=== PATIENT | female | born 1935 | race Caucasian/White ===

== ENCOUNTER 2017-09-25 15:26 | Emergency (ER) | payer MEDICARE, OTHER, SELFPAY ==
[2017-09-25] VITALS (9 sets, daily range): BP systolic 116–183; BP diastolic 47–81; PULSE 80–96; RESP 14–22; TEMP 37.1; O2SAT 95–98
--- NOTE | 2017-09-25 15:44 | DI.RPTCT_ITS ---
SYMPTOM/DIAGNOSIS: SEVERE FRONTAL HEADACHE 2 WEEKS CTA HEAD AND NECK: CT angiography was performed with multi slice acquisition and multi planar and 3D reconstruction. CTA NECK: There is atherosclerosis of the visualized portions of the thoracic aorta. The common carotid arteries are unremarkable without significant stenosis, aneurysm, or dissection. There is minimal atherosclerosis at the left carotid bulb. No significant stenosis is seen. There is mild atherosclerosis in the right carotid bulb with mild narrowing approximately 30% stenosis is estimated. The extra cranial internal carotid arteries are otherwise unremarkable. The external carotid arteries are unremarkable without significant stenosis, occlusion, dissection or aneurysm. There is a hypoplastic right vertebral artery which is a normal variant. No stenosis, occlusion or aneurysm is seen in the vertebral arteries. The basilar artery is unremarkable. The soft tissues are grossly unremarkable. No acute abnormality is seen in the bones. IMPRESSION: Mild atherosclerotic calcification of the right carotid bulb resulting in approximately 30% narrowing. Minimal atherosclerosis is seen in the left carotid bulb without significant stenosis. 2. 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 No acute stenosis , aneurysm, occlusion or dissection. The anterior cerebral arteries are unremarkable without significant stenosis, occlusion or aneurysm. The middle cerebral arteries are unremarkable without significant stenosis, occlusion or aneurysm. The posterior cerebral arteries are unremarkable without significant stenosis occlusion or aneurysm. The vertebral arteries are unremarkable without significant stenosis, occlusion or aneurysm as is the basilar artery. There is a congenitally small right vertebral artery which is a normal variant. IMPRESSION: Normal CTA of the head.
--- NOTE | 2017-09-25 15:44 | DI.RPTCT_ITS ---
SYMPTOM/DIAGNOSIS: SEVERE HEADACHE, FRONTAL, NO HX OF HEADACHES CT BRAIN: Noncontrast. Comparison 03/04/11. The ventricles and sulci are consistent with the patient's age. There are areas of decreased attenuation in the white matter consistent with small vessel ischemic disease. No acute intracranial hemorrhage, infarct, midline shift or mass effect is identified. Mild mucosal thickening seen in the ethmoid air cells bilaterally. No fluid levels are seen. The mastoid air cells are well pneumatized. The calvarium is intact. IMPRESSION: No acute intracranial process.
[2017-09-25] MEDS: Normal Saline 1,000 ML 1000 ML IV (16:03)
[2017-09-25 16:10] LABS: Abs Immature Grans 0.01 k/cumm (0.0-0.09); Absolute Basophil Count 0.04 k/cumm (0.0-0.2); Absolute Eosinophil Count 0.53 k/cumm (0.0-0.7); Absolute Lymphocyte Count 2.46 k/cumm (1.2-3.4); Absolute Monocyte Count 0.89 k/cumm (0.11-0.7); Absolute Neutrophil Count 3.35 k/cumm (1.2-6.7); Basophils % 0.5; Eosinophils % 7.3; HCT 37.4 % (36.0-46.0); HGB 13.1 g/dL (12.0-15.5); Immature Grans % 0.1; Lymphocytes % 33.8; Mean Corpuscular Hemoglobin 29.7 pg (27.0-33.0); Mean Corpuscular Volume 84.8 fL (80-95); Mean Platelet Volume 10.7 fL (8.0-11.0); Monocytes % 12.2; Neutrophils % 46.1; Platelet Count 244 x1000/uL (130-400); RBC 4.41 m/cumm (4.00-5.20); RBC Distribution Width 12.5 % (11.7-14.6); White Blood Cell Count 7.28 k/cumm (4.4-10.8)
[2017-09-25 16:14] LABS: Prothrombin Time 9.7 sec (9.3-10.8)
[2017-09-25 16:21] LABS: ALT 25 U/L (12-78); AST 30 U/L (15-37); Albumin 3.5 g/dL (3.4-5.0); Alkaline Phosphatase 103 U/L (46-116); Anion Gap 11.8 mmol/L (3-11); BUN 11 mg/dL (7-18); Bilirubin, Total 0.3 mg/dL (0.2-1.0); CO2 23.2 mmol/L (21.0-32.0); Calcium 8.7 mg/dL (8.5-10.1); Chloride 91 mmol/L (98-107); Estimated GFR 53.21 (mL/min/1.73m2); Glucose 104 mg/dL (70-100); Potassium 4.2 mmol/L (3.5-5.1); Sodium 126 mmol/L (136-145); Total Protein 7.2 g/dL (6.4-8.2)
[2017-09-25 16:28] LABS: Troponin I < 0.02 ng/mL (0.00-0.06)
--- NOTE | 2017-09-25 16:38 | ED.GENADUL_ITS ---
Disposition Clinical Impression: Headache, Hyponatremia Disposition: HOME Condition: Good Instructions: Hyponatremia (ED), General Headache (ED) Additional Instructions: Please eat a salty diet over the next 72 hours to bring up her sodium. If you notice any worsening of your symptoms, or any new symptoms such as vomiting, diarrhea, fever, chills, shortness of breath, chest pain, numbness, weakness, or fainting , please return immediately to the emergency department for reevaluation. Please follow up with your primary care provider as soon as possible for reassessment and reevaluation. As always, it was a pleasure participating in your medical care today. Referrals: Andrez Anthony MD [Primary Care Provider] - Medical Decision Making - Lab Data Laboratory Tests 09/25/17 09/25/17 09/25/17 15:45 15:45 15:45 WBC 7.28 RBC 4.41 Hgb 13.1 Hct 37.4 MCV 84.8 MCH 29.7 MCHC 35.0 RDW 12.5 Plt Count 244 MPV 10.7 Immature Gran % 0.1 Neutrophils % 46.1 Lymphocytes % 33.8 Monocytes % 12.2 Eosinophils % 7.3 Basophils % 0.5 Absolute Neutrophils 3.35 Absolute Lymphocytes 2.46 Absolute Monocytes 0.89 H Absolute Eosinophils 0.53 Absolute Basophils 0.04 PT 9.7 INR 1.0 Sodium 126 L Potassium 4.2 Chloride 91 L Carbon Dioxide 23.2 Anion Gap 11.8 H BUN 11 Creatinine 1.00 Estimated GFR/1.73 m2 53.21 Glucose 104 H Calcium 8.7 Total Bilirubin 0.3 AST 30 ALT 25 Alkaline Phosphatase 103 Troponin I < 0.02 Total Protein 7.2 Albumin 3.5 - Medical Decision Making This is an 81-year-old female who presents today for evaluation of headache for the last 2 weeks which is gradually worsened. There is no thunderclap onset, no red flags for an intracranial aneurysm from family history. She does not take blood thinners. 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 DVT was early this year. She did have vomiting earlier this week but none now. Neurologic exam is normal with no focal neurologic deficits. Bedside ultrasound of the eyes demonstrated no significant papilledema or optic nerve dilatation. Patient's headache is severe, and we will give a migraine cocktail. Differential is broad, but includes tumor, intracranial aneurysm, atypical migraine. We will get a CT scan of the head neck to evaluate for aneurysm or bleed, she shows no signs of meningismus, meningitis, or nuchal rigidity. EKG 09/25/17 at 15: 42 Rate 83, ME 170, QTc 414, QRS 82, sinus rhythm. No ST elevations or depressions. Q-wave noted in lead III. No other abnormalities. APM CT scan of the head was negative for any acute process. CT angioma the head showed moderate atherosclerotic calcification of the carotid bulb on the right. 30% stenosis is estimated. No other significant abnormalities except for congenitally hypoplastic right vertebral artery. No signs of aneurysm or bleed. Magnesium was eventually given to the patient for her headache, she had near complete resolution of her headache with this, however prior to this was concern for some other potential atypical cause of her headache including infection, meningitis, encephalitis or potential bleed not seen on CT for which we need to evaluate for notable xanthochromia. Lumbar puncture was performed and clear fluid return. No yellow tingeing. Mildly traumatic tap. On reevaluation the patient's headache completely resolved, we are still pending CSF fluid results at this time. Patient's laboratory workup demonstrates normal white count. CSF demonstrates color of clear and colorless, 30 RBCs in tube 1 and 26 and 2 4. This correlates well with a traumatic tap noted from the procedure. Glucose is normal, protein is normal not suggestive of a bacterial or viral infection. Clinically and from a laboratory perspective the patient does not demonstrate evidence of encephalitis or meningitis at this time. With a resolved headache, I feel that she can be safely discharged home. The patient's sodium is slightly low at 126, however she has not been eating over the last few days secondary to the headache. With the improvement of her headache, no history of significant urination suggestive of SIADH, no signs of neurologic deficits, seizures, or obtundation, and complete resolution of her headache as well as the negative imaging studies and negative lumbar puncture I feel she can be safely discharged home with close follow-up with her primary care provider on Wednesday. I had a long discussion with her regarding potential admission versus discharge and the patient is actively requesting discharge. We discussed risks and benefits of this and the patient understands. Patient will be discharged home with close follow-up. We discussed red flags which to return the patient understands. I have recommended a high salt diet over the next 72 hours for her sodium. I have extensively reviewed the treatment plan and discharge instructions with the patient. I have addressed all patient concerns at this time. The patient was made aware of what symptoms to monitor for that would warrant a return to the emergency department. Discussed the plan with the patient, they demonstrate verbal understanding and agreement with our assessment and plan at this time. History of Present Illness - General Chief complaint: Headache Stated complaint: ? HEADACHE Time Seen by Provider: 09/25/17 15:43 - History of Present Illness Initial comments: This is an 81-year-old female with past medical history of DVTs, A. fib, who does not take any blood thinners, polymyalgia rheumatica, and a family history of brain cancer presents with 2 weeks of a headache, which is gradually been worsening. Over the last 3-4 days she states that the headache is been severe in nature. It is from the front of her head all the way to the back. There appears to be no aggravating or relieving factors. She describes it as the worst headache she has ever had. It was gradual in onset and slowly worsened over time there was no thunderclap onset. She denies any fever or chills. She had vomiting earlier this week but now is only nauseous. She states that it is usually worse in the morning, and better at night. She denies any photophobia or confusion. She denies any trauma. She states that she rarely ever gets headaches and they never feel like this. Family history is positive for great brain cancer, however she denies any family history of Lalita-Danlos syndrome, Marfan syndrome, polycystic kidney disease, intracranial aneurysms. Patient denies any numbness, tingling, weakness, vision changes. She denies any chest pain or pain, neck pain or shortness of breath. She denies any recent surgeries, she denies any IV or illicit drug use. - Related Data Cholecalciferol (Vitamin D3) [Vitamin D-400] 800 unit PO DAILY 09/02/12 Coq10 Sg 100 Softgel 1 each PO DAILY 09/02/12 Loratadine [Claritin] 10 mg PO DAILY PRN #90 tab-cap 09/02/12 Propylene Glycol/Peg 400 [Systane Liquid Gel Eye Drops] 1 drp OP BID 09/02/12 Oxymetazoline HCl [Afrin] 1 sprays NS BID PRN spray 04/02/15 Calcium Carbonate [Tums Smoothies] 300 mg PO PRN PRN 03/03/17 Milk of Magnesia [Milk Of Magnesia] 30 ml PO HS PRN PRN #1 btl 04/27/17 Metoprolol [Lopressor] 25 mg PO BID #180 tab-cap 05/18/17 PredniSONE [Deltasone] 1 tab PO DAILY #90 tab-cap 05/18/17 Naproxen 500 mg PO BID #30 tab-cap 07/26/17 Allergies Allergy/AdvReac Type Severity Reaction Status Date / Time morphine AdvReac Intermediate made my Unverified 07/26/17 10:24 chest feel likie I was in a vice Review of Systems Other: 10 point review of systems was performed, pertinent positives and negatives are noted in the history of present illness. Past Medical History - Past Medical History Medical history: AFIB - Social History Alcohol use: none Drug use: none General Exam - Other Other exam information: 1.Const: Well-nourished, Well-developed, appearing stated age 2.Eyes: no conjunctival injection, and symmetrical lids. Pupils are equal round and minimally reactive. No anisocoria 3.ENT: Atraumatic external nose and ears. Moist MM. Neck: Symmetric, trachea midline, No thyromegaly. Patient demonstrates good movement of cervical neck. There is no nuchal rigidity, no nuchal tenderness. Patient is able to flex the neck without any difficulty or significant pain. Negative Kernig's and Brudzinski sign. 4.CVS: +S1/S2, No murmurs or gallops. Peripheral pulses 2+ and equal in all extremities. Brisk capillary refill in all extremities. 5.RESP: Unlabored respiratory effort. Clear to auscultation bilaterally. No wheezes rales or rhonchi 6.GI: Soft, Nontender/Nondistended, No hepatosplenomegaly. No guarding or rebound. 7.MSK: Normocephalic/Atraumatic, Extremities w/o deformity or ttp No cyanosis or clubbing, Normal movement of all extremities 8.Skin: Warm, Dry. No rashes or lesions. 9.Neuro: fiberglass bonding machine tender II-XII grossly intact. Sensation grossly intact, no focal neurologic deficits. All 6 cardinal planes of vision or fully intact. No evidence of horizontal or vertical nystagmus. The patient demonstrated a normal [id number], good dexterity. There was no evidence of dysdiadochokinesia. Patient was able to ambulate without difficulty. There was no wide-based gait. Romberg, and [id number]-[id number] are both normal on testing. Sensation was intact bilaterally as well as muscle strength bilaterally for all extremities. Patient was able to verbalize butter cup with no slurring, or miss pronunciation. 10.Psych: (AAO) x3. Appropriate mood and affect Course Vital Signs - 24 hr 09/25/17 15:31 Temperature 37.1 C Pulse 94 H Respiratory 14 Rate Blood Pressure 183/81 Pulse Oximetry 96
[2017-09-25] MEDS: Omnipaque 350 MG/ML 100 ML BTL IJ (16:45)
[2017-09-25] MEDS: Metoclopramide 10 MG/2 ML VIAL IVP (16:45)
[2017-09-25] MEDS: methylPREDNISolone SUCC 125 MG VIAL IVP (16:45)
[2017-09-25] MEDS: Acetaminophen 500 MG TAB 1000 MG PO (16:46)
--- NOTE | 2017-09-25 16:51 | DI.VRAD_ITS ---
EXAM: CT Head Without Intravenous Contrast CLINICAL HISTORY: 81 years old, female; Pain; Headache; Other: Frantal 2weeks TECHNIQUE: Axial computed tomography images of the head/brain without intravenous contrast. Coronal and sagittal reformatted images were created and reviewed. COMPARISON: CT - HEAD WITHOUT CONTRAST 2011-03-04 12:40 FINDINGS: Brain: There is mild periventricular white matter hypodensity consistent with mild chronic microvascular ischemic change. No hemorrhage. Ventricles: There is moderate diffuse involutional change with commensurate ventriculomegaly. Bones/joints: Unremarkable. No acute fracture. Soft tissues: Unremarkable. Sinuses: Unremarkable as visualized. No acute sinusitis. Mastoid air cells: Unremarkable as visualized. No mastoid effusion. IMPRESSION: No acute findings. Dictated and Authenticated by: Yasir Cardoso MD. Ordering:TRENTON MARLEY MD
--- NOTE | 2017-09-25 17:08 | DI.VRAD_ITS ---
EXAM: CT Angiography Head With Intravenous Contrast CLINICAL HISTORY: 81 years old, female; Pain; Headache; Patient HX: Headache for 2 weeks TECHNIQUE: Axial computed tomographic angiography images of the head with intravenous contrast using CT angiography protocol. All CT scans at this facility use at least one of these dose optimization techniques: automated exposure control; mA and/or kV adjustment per patient size (includes targeted exams where dose is matched to clinical indication); or iterative reconstruction. MIP reconstructed images were created and reviewed. CONTRAST: 95 mL of [id number] administered intravenously. COMPARISON: No relevant prior studies available. FINDINGS: Right internal carotid artery: No acute findings. Intracranial segment is patent with no significant stenosis. No aneurysm. Right anterior cerebral artery: Unremarkable. No occlusion or significant stenosis. No aneurysm. Right middle cerebral artery: Unremarkable. No occlusion or significant stenosis. No aneurysm. Right posterior cerebral artery: Unremarkable. No occlusion or significant stenosis. No aneurysm. Right vertebral artery: Unremarkable as visualized. Left internal carotid artery: No acute findings. Intracranial segment is patent with no significant stenosis. No aneurysm. Left anterior cerebral artery: Unremarkable. No occlusion or significant stenosis. No aneurysm. Left middle cerebral artery: Unremarkable. No occlusion or significant stenosis. No aneurysm. Left posterior cerebral artery: Unremarkable. No occlusion or significant stenosis. No aneurysm. Left vertebral artery: Unremarkable as visualized. Basilar artery: Unremarkable. No occlusion or significant stenosis. No aneurysm. IMPRESSION: Normal head CTA. EXAM: CT Angiography Neck With Intravenous Contrast CLINICAL HISTORY: 81 years old, female; Pain; Headache; Patient HX: Headache for 2 weeks TECHNIQUE: Axial computed tomographic angiography images of the neck with intravenous contrast using CT angiography protocol. MIP reconstructed images were created and reviewed. CONTRAST: 95 mL of [id number] administered intravenously. 95 mL of [id number] administered intravenously. COMPARISON: CT - HEAD WITHOUT CONTRAST 2017-09-25 15:54 FINDINGS: VASCULATURE: Right common carotid artery: Unremarkable. No significant stenosis. No dissection or occlusion. Right internal carotid artery: There is mild to most moderate atherosclerotic calcification of the right carotid bulb. 30% stenosis is estimated. No dissection or occlusion. Right external carotid artery: Unremarkable. No occlusion. 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 This reflects a congenital variation of normal anatomy. No significant stenosis. No dissection or occlusion. Left common carotid artery: Unremarkable. No significant stenosis. No dissection or occlusion. Left internal carotid artery: There is quite minimal atherosclerotic calcification of the left carotid bulb. There is no stenosis. No dissection or occlusion. Left external carotid artery: Unremarkable. No occlusion. Left vertebral artery: Unremarkable. No significant stenosis. No dissection or occlusion. NECK: Bones/joints: No acute fracture. No dislocation. Soft tissues: Unremarkable as visualized. No mass. CAROTID STENOSIS REFERENCE USING NASCET CRITERIA: % ICA stenosis = (1 - narrowest ICA diameter/diameter of distal cervical ICA) x 100. Mild - <50% stenosis. Moderate - 50-69% stenosis. Severe - 70-94% stenosis. Near occlusion - 95-99% stenosis. Occluded - 100% stenosis. IMPRESSION: 1. There is mild to most moderate atherosclerotic calcification of the right carotid bulb. 30% stenosis is estimated. 2. There is quite minimal atherosclerotic calcification of the left carotid bulb. There is no stenosis. 3. 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 This reflects a congenital variation of normal anatomy. Dictated and Authenticated by: Yasir Cardoso MD. Ordering:TRENTON MARLEY MD
[2017-09-25] MEDS: diphenhydrAMINE 50 MG/ML VIAL 25 MG IVP (18:30)
[2017-09-25] MEDS: MAGNESIUM SULFATE 1 GM/100 ML BAG IVPB (18:31)
[2017-09-25] MEDS: Prochlorperazine 10 MG TAB PO (18:31)
[2017-09-25 19:55] LABS: Glucose (CSF) 57 mg/dL (40-70); Total Protein (CSF) 34 mg/dL (15-45)
[2017-09-25 20:35] LABS: Clarity Clear; RBC 30 /mm3 (0-5); Tube # 4; WBC 1 /mm3 (0-5); Xanthochromia Absent
[2017-09-25 20:38] LABS: Clarity Clear; Tube # 1; WBC 0 /mm3 (0-5); Xanthochromia Absent
[2017-09-25 20:39] LABS: RBC 26 /mm3 (0-5)
[2017-09-25 20:40] LABS: RBC Tube#1 CSF 26 /mm3 (0-5)
[2017-09-25] MEDS: Normal Saline 500 ML 1000 ML IV (20:45)
== END 2017-09-25 21:56 | disposition home or self-care (01) ==
PROVIDERS: Emergency Provider Student in an Organized Health Care Education/Training Program; PCP Family Medicine
DX: R51 Headache (principal); E87.1 Hypo-osmolality and hyponatremia
CPT/HCPCS: 62270 ×2; 70450; 70496; 70498; 93005; 96361; 96365; 96375; 99285 ×2; J1200; J2765; J2930; J3475; 36415; 80053; 82945; 89050; 89051; 84157; 84484; 85025; 85610; 87070; 87205; 93010; J3490

== ENCOUNTER 2017-11-04 09:57 | Emergency (ER) | payer MEDICARE, OTHER, SELFPAY ==
[2017-11-04 10:09] VITALS: BP 135/52; PULSE 88; RESP 16; TEMP 36.7; O2SAT 98
--- NOTE | 2017-11-04 10:33 | DI.RAD_ITS ---
SYMPTOMS/DIAGNOSIS: FALL, RT PELVIC PAIN RIGHT HIP AND PELVIS: There is a nondisplaced fracture seen of the right superior pubic ramus just lateral to the symphysis pubis. There is also deformity of the superior aspect of the right inferior pubic ramus suspicious for a nondisplaced fracture. No other fracture or dislocation is seen. The sacroiliac joints and symphysis pubis appear intact. Vascular calcifications are present. IMPRESSION: Fractures involving the right superior and inferior pubic rami.
[2017-11-04] MEDS: Acetaminophen 325 MG TAB 650 MG PO (10:35)
--- NOTE | 2017-11-04 11:25 | W.ED.GENAD ---
Discharge Plan Disposition Patient Disposition: HOME Condition: Stable Discharge Details Chief Complaint: Orthopedic Clinical Impression: Closed fracture of ramus of right pubis Primary Care Provider: Andrez Anthony ED Provider: Ike Del Rio Home Meds and New Rx's Prescriptions: Continue cholecalciferol (vitamin D3) [Vitamin D3] 400 UNIT tablet 800 unit PO DAILY RF: 0 loratadine [Claritin] 10 MG tablet 10 mg PO DAILY PRNQty: 90 RF: 4 peg 400-propylene glycol [Systane Liquid Gel] 15 ML drops, liquid gel 1 drp Ophthalmic BID RF: 0 COQ10 SG 100 SOFTGEL 1 EACH capsule 1 ea PO DAILY RF: 0 oxymetazoline [Afrin (oxymetazoline)] 15 ML spray,non-aerosol 1 spry NS BID PRNRF: 0 prednisone 5 MG tablet 1 tab PO DAILY Qty: 90 RF: 2 metoprolol tartrate 25 MG tablet 25 mg PO BID Qty: 180 RF: 4 naproxen 500 MG tablet 500 mg PO BID Qty: 30 RF: 1 carbamazepine 100 mg tablet extended release 12 hr 100 mg PO BID Qty: 60 RF: 3 calcium carbonate [Tums Extra Strength Smoothies] 300 MG tablet,chewable 300 mg PO PRN PRNRF: 0 magnesium hydroxide [Milk of Magnesia] 30 ML suspension 30 ml PO HS PRN PRN (Reason: Constipation) Qty: 1 RF: 0 Discharge Instructions Instructions: Pelvic Fracture (ED) Additional Instructions: Return immediately to the emergency department for new or worsening symptoms otherwise follow-up with orthopedist in the next 2 weeks for reassessment. Call their office in the morning for arrangement of follow-up appointment. You may perform weightbearing activities as tolerated by discomfort and continue to use your walker as needed for gait assistance Referrals: Ruy Bowman MD [ [facility] STAFF PHYSICIAN] - Cliff Devries MD [ [facility] STAFF PHYSICIAN] - Wm Gilmore MD [ [facility] STAFF PHYSICIAN] - Medical Decision Making MDM Narrative Medical decision making narrative: Patient presenting to the emergency department one day status post fall onto left hip. After the fall patient started having some right hip pain and discomfort. She is questioning if this is muscular. Patient did state that she took Tylenol yesterday and pain was well tolerated except with attempting weightbearing activities. Patient has some illicit pain response with range of motion activities to the right hip and tenderness to the pubic bone. Concern for pubic fracture versus hip fracture so radiological imaging was ordered. Patient is otherwise comfortable and no other significant signs of injury or trauma are noted. Patient given acetaminophen pending results Review of radiological imaging shows a right pubic ramus fracture. Did speak with Dr. Bowman in regards to discharge the patient with weightbearing as tolerated and follow-up. After speaking with Dr. Bowman he agreed that patient should continue to use a walker and perform weightbearing as tolerated activities and follow-up with their office in 2 weeks. Given that patient states tolerable pain with acetaminophen and no issues with sleep I feel that continuing [id number] therapy is appropriate.. Patient encouraged to return for any new or worsening symptoms Medical Records Medical records reviewed: Yes I reviewed the patient's medical records. Imaging Data Radiologic Study: Attestation: I personally reviewed and interpreted this imaging study as follows: Imaging: X-Ray Radiologist's impression: Radiologist interpretation of right pubic ramus fracture HPI - General Adult General Mode of arrival: wheelchair. Date/Time Provider Initiated Documentation: 11/04/17 10:04. Limitations to Documentation: no limitations. Information obtained by: patient. History of Present Illness 81 year old F presents to the emergency department with the chief complaint of Fall right hip pain, described as moderate, with intensity rated at 5. Quality is described as aching, and is localized to the lower extremity. Patient reports no radiation. Patient started experiencing this day(s) (1) and it has been constant. No relieving factors improve symptom(s), Movement worsens symptoms . Patient notes no other symptoms.. Patient did receive the following treatments prior to arrival, other (Acetaminophen yesterday) Related Data Home Medications Medication Instructions Recorded Confirmed Coq10 Sg 100 Softgel 1 ea PO DAILY 09/02/12 11/04/17 cholecalciferol (vitamin D3) 800 unit PO DAILY 09/02/12 11/04/17 [Vitamin D3] loratadine [Claritin] 10 mg PO DAILY PRN #90 tab-cap 09/02/12 11/04/17 peg 400-propylene glycol [Systane 1 drp OPHTHALMIC BID 09/02/12 11/04/17 Liquid Gel] oxymetazoline [Afrin 1 spry NS BID PRN spray 04/02/15 11/04/17 (oxymetazoline)] calcium carbonate [Tums Extra 300 mg PO PRN PRN 03/03/17 11/04/17 Strength Smoothies] Previous Rx's Medication Instructions Recorded magnesium hydroxide [Milk of 30 ml PO HS PRN PRN #1 btl 04/27/17 Magnesia] metoprolol tartrate 25 mg PO BID #180 tab-cap 05/18/17 prednisone 1 tab PO DAILY #90 tab-cap 05/18/17 naproxen 500 mg PO BID #30 tab-cap 07/26/17 carbamazepine ER 100 mg 100 mg PO BID #60 tab 11/01/17 tablet,extended release,12 hr Allergies Allergy/AdvReac Type Severity Reaction Status Date / Time morphine AdvReac Intermediate made my Unverified 11/04/17 10:13 chest feel likie I was in a vice General Stated Complaint: Orthopedic HARSHAD: 3 Review of Systems Constitutional Denies body ache(s), Denies chills, Denies fever(s), Denies frequent falls and Denies headache(s) ENT Denies headache(s) Cardiovascular Denies chest pain, Denies syncope and Denies dyspnea Respiratory Denies dyspnea Gastrointestinal Denies abdominal pain, Denies nausea and Denies vomiting Musculoskeletal Reports as per HPI and Denies numbness Integumentary/Breasts Denies rash Neurologic Denies confusion, Denies syncope, Denies frequent falls, Denies headache(s), Denies numbness and Denies sensory deficit Psychiatric Denies confusion PFSH Family History Mother No problems noted. Father Neoplasm Sister Neoplasm Medical History GERD (gastroesophageal reflux disease) Osteoarthritis Paroxysmal atrial fibrillation Polymyalgia rheumatica Social History Smoking/Tobacco Use Status: Never Surgical History Cholecystectomy (~01/2007) Colonoscopy - MAC Hemorrhoidal Banding (04/27/17) Exam Const General: cooperative, no acute distress and not ill appearing Orientation: alert, awake and oriented x3 HENMT Head: normal to inspection, normocephalic and atraumatic Mouth: moist mucous membranes Resp Effort & Inspection: normal respiratory effort, able to speak in complete sentences and no respiratory distress Cardio Rate: regular rate Rhythm: regular rhythm Heart Sounds: S1 normal, S2 normal, normal S1 and S2, no click, no gallops, no murmurs and no rubs Back/Spine/Pelvis Back: No sacral edema and No back tenderness Cervical Spine: No pain with cervical ROM, No cervical spinal tenderness and No step off deformity Thoracic/Lumbar Spine: thoracic and lumbar spine normal to inspection Pelvis: no pain with lateral compression and tenderness over symphysis pubis (On the right side) Skin General skin exam: no rashes or lesions noted Neuro General: alert, awake, oriented x3, moves all extremities and no focal motor deficits Sensory Exam: no sensory deficits noted Extrem General: normal capillary refill Right lower extremity: normal capillary refill and hip/thigh Details: tenderness and abnormal ROM Details: pain with active ROM during and pain with passive ROM during Details: to ADduction, to ABduction, to flexion and to external rotation; no swelling and no crepitus; no edema and joint enlargement noted Left lower extremity: normal to inspection and full ROM Course Vital Signs Temperature 36.7 C 11/04/17 10:09 Pulse 88 11/04/17 10:09 Respiratory Rate 16 11/04/17 10:09 Blood Pressure 135/52 L 11/04/17 10:09 Pulse Oximetry 98 11/04/17 10:09 Temperature 36.7 C 11/04/17 10:09 Pulse 88 11/04/17 10:09 Respiratory Rate 16 11/04/17 10:09 Blood Pressure 135/52 L 11/04/17 10:09 Pulse Oximetry 98 11/04/17 10:09
--- NOTE | 2017-11-04 11:33 | ED.GENADUL_ITS ---
Discharge Plan Disposition Patient Disposition: HOME Condition: Stable Discharge Details Chief Complaint: Orthopedic Clinical Impression: Closed fracture of ramus of right pubis Primary Care Provider: Andrez Anthony ED Provider: Ike Del Rio Home Meds and New Rx's Prescriptions: Continue cholecalciferol (vitamin D3) [Vitamin D3] 400 UNIT tablet 800 unit PO DAILY RF: 0 loratadine [Claritin] 10 MG tablet 10 mg PO DAILY PRNQty: 90 RF: 4 peg 400-propylene glycol [Systane Liquid Gel] 15 ML drops, liquid gel 1 drp Ophthalmic BID RF: 0 COQ10 SG 100 SOFTGEL 1 EACH capsule 1 ea PO DAILY RF: 0 oxymetazoline [Afrin (oxymetazoline)] 15 ML spray,non-aerosol 1 spry NS BID PRNRF: 0 prednisone 5 MG tablet 1 tab PO DAILY Qty: 90 RF: 2 metoprolol tartrate 25 MG tablet 25 mg PO BID Qty: 180 RF: 4 naproxen 500 MG tablet 500 mg PO BID Qty: 30 RF: 1 carbamazepine 100 mg tablet extended release 12 hr 100 mg PO BID Qty: 60 RF: 3 calcium carbonate [Tums Extra Strength Smoothies] 300 MG tablet,chewable 300 mg PO PRN PRNRF: 0 magnesium hydroxide [Milk of Magnesia] 30 ML suspension 30 ml PO HS PRN PRN (Reason: Constipation) Qty: 1 RF: 0 Discharge Instructions Instructions: Pelvic Fracture (ED) Additional Instructions: Return immediately to the emergency department for new or worsening symptoms otherwise follow-up with orthopedist in the next 2 weeks for reassessment. Call their office in the morning for arrangement of follow-up appointment. You may perform weightbearing activities as tolerated by discomfort and continue to use your walker as needed for gait assistance Referrals: Ruy Bowman MD [ [facility] STAFF PHYSICIAN] - Cliff Devries MD [ [facility] STAFF PHYSICIAN] - Wm Gilmore MD [ [facility] STAFF PHYSICIAN] - Medical Decision Making MDM Narrative Medical decision making narrative: Patient presenting to the emergency department one day status post fall onto left hip. After the fall patient started having some right hip pain and discomfort. She is questioning if this is muscular. Patient did state that she took Tylenol yesterday and pain was well tolerated except with attempting weightbearing activities. Patient has some illicit pain response with range of motion activities to the right hip and tenderness to the pubic bone. Concern for pubic fracture versus hip fracture so radiological imaging was ordered. Patient is otherwise comfortable and no other significant signs of injury or trauma are noted. Patient given acetaminophen pending results Review of radiological imaging shows a right pubic ramus fracture. Did speak with Dr. Bowman in regards to discharge the patient with weightbearing as tolerated and follow-up. After speaking with Dr. Bowman he agreed that patient should continue to use a walker and perform weightbearing as tolerated activities and follow-up with their office in 2 weeks. Given that patient states tolerable pain with acetaminophen and no issues with sleep I feel that continuing [id number]-[id number] therapy is appropriate.. Patient encouraged to return for any new or worsening symptoms Medical Records Medical records reviewed: Yes I reviewed the patient's medical records. Imaging Data Radiologic Study: Attestation: I personally reviewed and interpreted this imaging study as follows: Imaging: X-Ray Radiologist's impression: Radiologist interpretation of right pubic ramus fracture HPI - General Adult General Mode of arrival: wheelchair . Date/Time Provider Initiated Documentation: 11/04/17 10:04 . Limitations to Documentation: no limitations . Information obtained by: patient . History of Present Illness 81 year old F presents to the emergency department with the chief complaint of Fall right hip pain, described as moderate, with intensity rated at 5. Quality is described as aching, and is localized to the lower extremity. Patient reports no radiation. Patient started experiencing this day(s) (1) and it has been constant. No relieving factors improve symptom(s), Movement worsens symptoms . Patient notes no other symptoms.. Patient did receive the following treatments prior to arrival, other (Acetaminophen yesterday) Related Data Home Medications Medication Instructions Recorded Confirmed Coq10 Sg 100 Softgel 1 ea PO DAILY 09/02/12 11/04/17 cholecalciferol (vitamin D3) 800 unit PO DAILY 09/02/12 11/04/17 [Vitamin D3] loratadine [Claritin] 10 mg PO DAILY PRN #90 tab-cap 09/02/12 11/04/17 peg 400-propylene glycol [Systane 1 drp OPHTHALMIC BID 09/02/12 11/04/17 Liquid Gel] oxymetazoline [Afrin 1 spry NS BID PRN spray 04/02/15 11/04/17 (oxymetazoline)] calcium carbonate [Tums Extra 300 mg PO PRN PRN 03/03/17 11/04/17 Strength Smoothies] Previous Rx's Medication Instructions Recorded magnesium hydroxide [Milk of 30 ml PO HS PRN PRN #1 btl 04/27/17 Magnesia] metoprolol tartrate 25 mg PO BID #180 tab-cap 05/18/17 prednisone 1 tab PO DAILY #90 tab-cap 05/18/17 naproxen 500 mg PO BID #30 tab-cap 07/26/17 carbamazepine ER 100 mg 100 mg PO BID #60 tab 11/01/17 tablet,extended release,12 hr Allergies Allergy/AdvReac Type Severity Reaction Status Date / Time morphine AdvReac Intermediate made my Unverified 11/04/17 10:13 chest feel likie I was in a vice General Stated Complaint: Orthopedic HARSHAD: 3 Review of Systems Constitutional Denies body ache(s), Denies chills, Denies fever(s), Denies frequent falls and Denies headache(s) ENT Denies headache(s) Cardiovascular Denies chest pain, Denies syncope and Denies dyspnea Respiratory Denies dyspnea Gastrointestinal Denies abdominal pain, Denies nausea and Denies vomiting Musculoskeletal Reports as per HPI and Denies numbness Integumentary/Breasts Denies rash Neurologic Denies confusion, Denies syncope, Denies frequent falls, Denies headache(s), Denies numbness and Denies sensory deficit Psychiatric Denies confusion PFSH Family History Mother No problems noted. Father Neoplasm Sister Neoplasm Medical History GERD (gastroesophageal reflux disease) Osteoarthritis Paroxysmal atrial fibrillation Polymyalgia rheumatica Social History Smoking/Tobacco Use Status: Never Surgical History Cholecystectomy (~01/2007) Colonoscopy - MAC Hemorrhoidal Banding (04/27/17) Exam Const General: cooperative, no acute distress and not ill appearing Orientation: alert, awake and oriented x3 HENMT Head: normal to inspection, normocephalic and atraumatic Mouth: moist mucous membranes Resp Effort & Inspection: normal respiratory effort, able to speak in complete sentences and no respiratory distress Cardio Rate: regular rate Rhythm: regular rhythm Heart Sounds: S1 normal, S2 normal, normal S1 and S2, no click, no gallops, no murmurs and no rubs Back/Spine/Pelvis Back: No sacral edema and No back tenderness Cervical Spine: No pain with cervical ROM, No cervical spinal tenderness and No step off deformity Thoracic/Lumbar Spine: thoracic and lumbar spine normal to inspection Pelvis: no pain with lateral compression and tenderness over symphysis pubis ( On the right side) Skin General skin exam: no rashes or lesions noted Neuro General: alert, awake, oriented x3, moves all extremities and no focal motor deficits Sensory Exam: no sensory deficits noted Extrem General: normal capillary refill Right lower extremity: normal capillary refill and hip/thigh Details: tenderness and abnormal ROM Details: pain with active ROM during and pain with passive ROM during Details: to ADduction, to ABduction, to flexion and to external rotation; no swelling and no crepitus; no edema and joint enlargement noted Left lower extremity: normal to inspection and full ROM Course Vital Signs Temperature 36.7 C 11/04/17 10:09 Pulse 88 11/04/17 10:09 Respiratory Rate 16 11/04/17 10:09 Blood Pressure 135/52 L 11/04/17 10:09 Pulse Oximetry 98 11/04/17 10:09 Temperature 36.7 C 11/04/17 10:09 Pulse 88 11/04/17 10:09 Respiratory Rate 16 11/04/17 10:09 Blood Pressure 135/52 L 11/04/17 10:09 Pulse Oximetry 98 11/04/17 10:09
[2017-11-04 12:15] VITALS: BP 130/48; PULSE 82; RESP 16; TEMP 36.7; O2SAT 98
== END 2017-11-04 12:15 | disposition home or self-care (01) ==
PROVIDERS: Emergency Provider Nurse Practitioner Family; PCP Family Medicine
DX: S32.501A Unspecified fracture of right pubis, initial encounter for closed fracture (principal); W18.39XA Other fall on same level, initial encounter
CPT/HCPCS: 99283; 73502; 99282

== ENCOUNTER 2018-01-11 15:33 | Outpatient (CLI) | payer MEDICARE, OTHER, SELFPAY ==
[2018-01-11 16:17] LABS: Prothrombin Time 9.9 sec (9.3-10.8)
[2018-01-11 17:34] LABS: ESR 27 MM/HR (0-30)
== END 2018-01-11 15:53 ==
PROVIDERS: PCP Family Medicine; Visit Provider Family Medicine
DX: R51 Headache (principal); I48.91 Unspecified atrial fibrillation; Z79.01 Long term (current) use of anticoagulants
CPT/HCPCS: 36415; 85652; 85610

== ENCOUNTER 2018-01-28 00:53 | Outpatient (CLI) | payer MEDICARE, OTHER, SELFPAY ==
--- NOTE | 2018-01-28 13:49 | DI.MRI_ITS ---
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 T2 sagittal, T1, T2 Flair and diffusion axial, gradient echo axial and post gadolinium T1 axial and coronal sequences were performed. There is moderate atrophy, consistent with the patient's age. Again noted are multiple areas of high signal in the right matter consistent with microvascular disease. No mass, hemorrhage or acute infarct is seen. The ventricles are unchanged in size. The orbits and sinuses are unremarkable. The mastoid air cells appear clear. The vascular flow voids appear intact. IMPRESSION: Stable atrophy and white matter changes likely reflecting microvascular disease. No acute abnormality.
[2018-01-28 14:27] LABS: CREATININE 0.84 mg/dL (0.55-1.02)
[2018-01-28] MEDS: Gadoterate meglumine 20 ML VIAL 10 ML IVP (15:37)
== END 2018-01-28 01:13 ==
PROVIDERS: PCP Family Medicine; Visit Provider Family Medicine
DX: G44.59 Other complicated headache syndrome (principal); G31.1 Senile degeneration of brain, not elsewhere classified; R90.82 White matter disease, unspecified; Z13.89 Encounter for screening for other disorder
CPT/HCPCS: 36415; 70553; 82565

== ENCOUNTER → 2018-02-03 08:46 | Outpatient (BNVA) | payer MEDICARE, OTHER, SELFPAY | PROVIDERS: PCP Family Medicine; Referring Provider Family Medicine; Visit Provider Psychiatry & Neurology Neurology | DX: R51 Headache (principal); G43.009 Migraine without aura, not intractable, without status migrainosus | CPT/HCPCS: 99205; 99215 ==

== ENCOUNTER 2018-02-04 09:25 | Outpatient (CLI) | payer MEDICARE, OTHER, SELFPAY ==
[2018-02-04 11:33] LABS: Anion Gap 9.5 mmol/L (3-11); BUN 16 mg/dL (7-18); CO2 26.5 mmol/L (21.0-32.0); CREATININE 0.84 mg/dL (0.55-1.02); Calcium 8.7 mg/dL (8.5-10.1); Chloride 93 mmol/L (98-107); Glucose 96 mg/dL (70-100); Potassium 4.3 mmol/L (3.5-5.1); Sodium 129 mmol/L (136-145); TSH (W/Ref FT4) 1.25 uIU/mL (0.358-3.74)
== END 2018-02-04 09:45 ==
PROVIDERS: PCP Family Medicine; Visit Provider Psychiatry & Neurology Neurology
DX: G50.0 Trigeminal neuralgia (principal); I48.91 Unspecified atrial fibrillation
CPT/HCPCS: 80048; 84443

== ENCOUNTER 2018-02-09 08:41 | Outpatient (CLI) | payer MEDICARE, OTHER, SELFPAY ==
[2018-02-09 10:04] LABS: Sodium, Urine 52 mmol/L
[2018-02-09 21:31] LABS: Osmolality, Urine 412 mos/kg (150-1150)
== END 2018-02-09 09:01 ==
PROVIDERS: PCP Family Medicine; Visit Provider Family Medicine
DX: E87.1 Hypo-osmolality and hyponatremia (principal)
CPT/HCPCS: 83935; 84300

== ENCOUNTER 2018-03-24 08:53 | Outpatient (CLI) | payer MEDICARE, OTHER, SELFPAY ==
[2018-03-24 11:56] LABS: Anion Gap 7.6 mmol/L (3-11); BUN 21 mg/dL (7-18); CO2 30.4 mmol/L (21.0-32.0); CREATININE 0.98 mg/dL (0.55-1.02); Calcium 9.1 mg/dL (8.5-10.1); Chloride 98 mmol/L (98-107); Estimated GFR 54.33 (mL/min/1.73m2); Glucose 96 mg/dL (70-100); Sodium 136 mmol/L (136-145); TSH 3.11 uIU/mL (0.358-3.74)
== END 2018-03-24 09:13 ==
PROVIDERS: PCP Family Medicine; Visit Provider Family Medicine
DX: R51 Headache (principal); E83.42 Hypomagnesemia; E22.2 Syndrome of inappropriate secretion of antidiuretic hormone; I48.91 Unspecified atrial fibrillation
CPT/HCPCS: 36415; 80048; 83735; 84443

== ENCOUNTER 2018-05-02 09:05 | Day surgery (SDC) | payer MEDICARE, OTHER, SELFPAY ==
--- NOTE | 2018-05-01 17:38 | W.PIPPEYE ---
History of Present Illness Chief Complaint: Progressive decreased vision, left eye Narrative: The patient is a 82-year-old lady with history of progressive decreased vision in both eyes at both distance and near. On examination she was noted to have bilateral nuclear and cortical cataracts. Visual acuity measured 20/30 OD, 20/50 OS. The option of cataract surgery was offered to the patient and she wished to proceed. NOTE: The Chief Complaint, HPI, Past Medical History, Past Surgical History, Family History, Social History, Medications, and complete Ophthalmic Exam with detailed Assessment and Plan have already been documented in the patient's outpatient ophthalmic record and are not covered again in detail here. [facility] Medical History Cortical cataract of left eye (Acute) Epiretinal membrane (ERM) of left eye (Chronic) Nuclear sclerotic cataract of left eye (Acute) History of pelvic fracture (Chronic) Osteoporosis (Chronic) Celiac disease (Chronic 06/12/13) DVT (deep venous thrombosis) (Chronic) GERD (gastroesophageal reflux disease) Osteoarthritis Paroxysmal atrial fibrillation Polymyalgia rheumatica Surgical History Cholecystectomy (~01/2007) Colonoscopy - MAC Hemorrhoidal Banding (04/27/17) Social History highest education level completed: high school graduate current occupational status: retired current occupation: [employer] pets and animals: No what type of physical activity do you participate in: none Smoking and Tabacco status: Never alcohol intake: never substance use type: does not use homa/orthodoxy: Jain special homa needs: No Meds Home Medications Medication Instructions Recorded Confirmed Type Coq10 Sg 100 Softgel 1 ea PO DAILY 09/02/12 04/27/18 History Systane Liquid Gel 1 drp OPHTHALMIC BID 09/02/12 04/27/18 History loratadine [Claritin] 10 mg PO DAILY PRN #90 tab-cap 09/02/12 04/27/18 History oxymetazoline [Afrin 1 spry NS BID PRN spray 04/02/15 04/27/18 History (oxymetazoline)] calcium carbonate [Tums Extra 300 mg PO PRN PRN 03/03/17 04/27/18 History Strength Smoothies] magnesium hydroxide [Milk of 30 ml PO HS PRN PRN #1 btl 04/27/17 04/27/18 Rx Magnesia] metoprolol tartrate 25 mg PO BID #180 tab-cap 05/18/17 04/27/18 Rx ascorbic acid 1,000 See Rx Instructions PO DAILY each 12/28/17 04/27/18 History ig-[id number] powder effervescent pack prednisone 5 mg tablet 5 mg PO DAILY #30 tab 04/22/18 04/27/18 Rx Allergies Allergy/AdvReac Type Severity Reaction Status Date / Time carbamazepine AdvReac Severe Confusion Verified 04/27/18 16:46 and disorientation morphine AdvReac Intermediate made my Unverified 04/27/18 16:46 chest feel likie I was in a vice Exam OCULAR EXAM:: Most recent ocular examination is significant for corrected visual acuity of 20/30 OD, 20/50 OS. Intraocular pressure is 19 OD, 16 OS. Extraocular motility is normal. Pupils equal, round, and reactive without afferent pupillary defect slit-lamp examination is significant for pupils dilating to 5 mm OU. 2-3+ nuclear with 1+ cortical cataract OD. 2+ nuclear with 2+ cortical cataract OS. Dilated funduscopic examination is significant for disc cupping of 0.5 OU with normal vessels. An epiretinal membrane is present in both maculas with some mild pigmentary changes. Peripheral retina and vitreous is normal. BRIGHTNESS ACUITY TESTING (BAT):: Brightness acuity testing of the left eye off is 20/50. Low medium and high is 20/60. Assessment and Plan (1) Nuclear sclerotic cataract of left eye: Current visit: No Status: Acute Assessment: Visually significant cataract, left eye. Plan: Cataract extraction with intraocular lens implantation, left eye (2) Cortical cataract of left eye: Current visit: No Status: Acute Assessment: Visually significant cataract, left eye. Plan: Cataract extraction with intraocular lens implantation, left eye Note: NOTE:: The details of the planned surgery, including the risks, indications,limitations,expectations,outcome and possible complications were explained to the patient. The patient understands the complications including, but not limited to: infection, hemorrhage, posterior dislocation of the lens or nuclear fragments which may require the intervention of a vitreoretinal surgeon, possible loss of the eye, or from anesthetic complications. The patient has been made aware of the option of not having surgery, that vision following surgery may not be equal to that prior to surgery, and that the planned surgery may not achieve the intended results. Following this discussion, which the patient appeared to understand, the patient wishes to proceed with cataract surgery with lens implantation of the affected eye to improve and maximize vision.
--- NOTE | 2018-05-01 18:30 | W.PM.DSUDISC ---
Discharge Plan Disposition Patient Disposition: HOME Condition: Stable Discharge Details Attending Provider: Geoffrey Angel Primary Care Provider: Andrez Anthony Home Meds and New Rx's Prescriptions: No Action Emergen-C Immune Plus 1,000 mg powder effervescent in packet See Patient Comments PO DAILY RF: 0 prednisone 5 mg tablet 5 mg PO DAILY Qty: 30 RF: 3 loratadine [Claritin] 10 MG tablet 10 mg PO DAILY PRNQty: 90 RF: 4 Systane Liquid Gel 15 ML drops, liquid gel 1 drp Ophthalmic BID RF: 0 COQ10 SG 100 SOFTGEL 1 EACH capsule 1 ea PO DAILY RF: 0 oxymetazoline [Afrin (oxymetazoline)] 15 ML spray,non-aerosol 1 spry NS BID PRNRF: 0 metoprolol tartrate 25 MG tablet 25 mg PO BID Qty: 180 RF: 4 calcium carbonate [Tums Extra Strength Smoothies] 300 MG tablet,chewable 300 mg PO PRN PRNRF: 0 magnesium hydroxide [Milk of Magnesia] 30 ML suspension 30 ml PO HS PRN PRN (Reason: Constipation) Qty: 1 RF: 0 Discharge Instructions Stand Alone Forms: Post-op Topical Cataract, Press Ganey (DSU) Discharge Orders Discharge Orders: Discharge Order (Routine); Ordered 05/02/18 Ordered By: Geoffrey Angel DS: Diagnosis Discharge Diagnosis (1) Status post cataract extraction and insertion of intraocular lens of left eye: Status: Chronic
[2018-05-02] MEDS: Tetracaine 0.5% 4 ML BTL OS ×4 (09:35→11:06)
[2018-05-02] MEDS: Tropicam./Phenyleph. (1/2.5%) 5 ML BTL OS ×3 (09:35→09:52)
[2018-05-02 09:44] VITALS: BP 135/60; PULSE 75; RESP 16; TEMP 35.1; O2SAT 97
[2018-05-02] MEDS: Lidocaine 2% Jelly 6 ML SYR (11:06)
[2018-05-02] MEDS: Povidone-Iodine Ophth 30 ML BTL ×2 (11:06→11:36)
[2018-05-02] MEDS: Lidocaine 1% Pres-Free 5 ML VIAL (11:11)
[2018-05-02] MEDS: Balanced Salt Soln.-PLUS 500 ML BAG (11:11)
--- NOTE | 2018-05-02 11:48 | W.PM.OP ---
Date of service: 05/02/18 Time of Service: 11:48 Operative Note PRE-OP DIAGNOSIS: Cataract, left eye POST-OP DIAGNOSIS: same PROCEDURE: Cataract extraction using phacoemulsification with intraocular lens implant, left eye SURGEON: Geoffrey Angel ANESTHESIA: MAC and local (sub-tenon's anesthetic infiltration) PATHOLOGY: none sent COMPLICATIONS: None Patient was transported to: same day Patient's condition: stable Implants: Ryan [employer] Ryan Vision / [employer] Tecnis ZCB00 Indications: Progressive decreased vision due to cataract, left eye Procedure Description: CATARACT SURGERY OPERATIVE REPORT PREOPERATIVE DIAGNOSIS: Nuclear/cortical cataract, right eye, symptomatic POSTOPERATIVE DIAGNOSIS: Same OPERATION: Cataract extraction using phacoemulsification with posterior chamber intraocular lens implant, left eye. IOL: IOL Real Estate Representative/Model: J&J Vision / OLLIE Tecnis ZCB00 IOL Power: + 25.0 diopters IOL Serial Number: [id number] Optic Diameter: 6.0mm Haptic/Overall Diameter: 13.0mm PHACO INFO: [employer] Vision System with OZil and Active Fluidics Cumulative Dispersed Energy (CDE): 7.55 seconds SURGEON: Geoffrey Angel MD, FORD ANESTHESIA: Monitored Anesthesia Care (MAC), with local sub-tenon's anesthetic infiltration COMPLICATIONS: None SPECIMENS: None INDICATIONS FOR PROCEDURE: The patient is an 82-year-old lady with history of progressive decreased vision in both eyes secondary to the development of bilateral nuclear and cortical cataracts. She was significantly symptomatic that she desired cataract surgery and attempt to improve and maximize her vision. PROCEDURE: The correct surgical eye was identified and marked as the left eye and the pupil was dilated in the preoperative area using mydriatics and cycloplegics. The dilated pupil size was 7.0 mm. Oral sedation was administered in the form of an Imprimis MKO Melt (midazolam 3mg/ketamine 25mg/ondansetron 2mg). The patient was brought to the operating room where cardiopulmonary monitoring was instituted and surgical time-out was performed, confirming the correct operative eye and IOL power. Topical anesthesia was administered and ophthalmic povidone-iodine 5% was instilled into the conjunctival fornices. Lidocaine gel was applied to the cornea and the vikki-ocular area was prepped with Betadine 10% solution and draped in the usual sterile fashion for intraocular surgery, including an aperture drape. A Tegaderm transparent film dressing was cut in half and used to cover the lashes and lid margins. Care was taken to sequester the lashes and lid margins under the Tegaderm dressing. A lid speculum was placed between the lids of the operative eye and the Adiel-Ninfa operating microscope was maneuvered into position. Vernon scissors were then used to make a conjunctival buttonhole approximately 6mm posterior to the limbus in the inferonasal quadrant. Blunt dissection was carried out to expose bare sclera, and a blunt-tipped sub-tenon?s anesthesia cannula was introduced and passed posteriorly along the globe where non-preserved plain lidocaine was injected into posterior sub-Tenon?s space. A sideport knife was used to make a paracentesis port superior/superiortemporal, and the anterior chamber was filled with Healon GV. A 2.4mm keratome knife was used to create a half-thickness groove at the limbus and then to construct a three-plane near-clear corneal tunnel extending 2.0mm into clear cornea in the temporal position. . A flap was raised on the anterior capsule and capsulorhexis forceps were used to complete a continuous curvilinear capsulorhexis of 5.0mm. Balanced salt solution was then used to perform cortical cleaving hydrodissection and nuclear hydrodelineation until the lens could be freely rotated within the capsular bag. The lens nucleus was then disassembled and removed within the capsular bag and iris plane using phacoemulsification. Residual cortical material was removed using the 45-degree angled silicone I/A tip with 0.3mm port. The posterior capsule was carefully polished to remove as much residual lens epithelial cells as safely possible. There was some densely adherent cortex in the equatorial region at the 1:00 position which could not be safely removed. The capsular bag was then inflated and the anterior chamber deepened with viscoelastic. The lens implant described above was inserted into the capsular bag using the OLLIE [place] Injector. A Kuglen hook was used to dial the IOL into position. Residual viscoelastic was then removed first from posterior to the IOL, then from the anterior chamber using the I/A handpiece. The lens implant was noted to center nicely within the capsular bag. The incisions were stromally hydrated, and the anterior chamber was reformed using BSS. Then 0.4cc of moxifloxacin 1.5mg/ml were injected into the capsular bag and anterior chamber. The incisions were checked with a Weck spear and found to be secure. Several drops of ophthalmic povidone-iodine 5% were then applied to the eye followed by two drops of Imprimis combination moxifloxacin/dexamethasone solution. The drapes were removed and a clear plastic protective eye shield was placed over the eye. The patient was then returned to Same Day Surgery in stable condition.
[2018-05-02 12:12] VITALS: BP 130/65; PULSE 66; RESP 16; TEMP 36.4; O2SAT 95
== END 2018-05-02 12:42 | disposition home or self-care (01) ==
PROVIDERS: PCP Family Medicine; Visit Provider Ophthalmology
PROC: (CPT 66984; principal; 2018-05-02 12:30)
DX: H25.811 Combined forms of age-related cataract, right eye (principal); I10 Essential (primary) hypertension; K21.9 Gastro-esophageal reflux disease without esophagitis
CPT/HCPCS: 66984; V2632

== ENCOUNTER 2018-05-16 07:58 | Day surgery (SDC) | payer MEDICARE, OTHER, SELFPAY ==
--- NOTE | 2018-05-15 16:53 | W.PIPPEYE ---
History of Present Illness Chief Complaint: Progressive decreased vision, right eye Narrative: The patient is an 82-year-old lady with history of progressive decreased vision in both eyes at both distance and near. She was noted to have moderate bilateral nuclear and cortical cataracts with visual acuity of 20/30 OD, 20/50 OS. She was significantly symptomatic that she desired cataract surgery which was performed OS on 05/02/2018. Postoperatively, she has regained uncorrected vision of 20/30 in the left eye. She now presents for cataract surgery in the right eye. NOTE: The Chief Complaint, HPI, Past Medical History, Past Surgical History, Family History, Social History, Medications, and complete Ophthalmic Exam with detailed Assessment and Plan have already been documented in the patient's outpatient ophthalmic record and are not covered again in detail here. 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) History of pelvic fracture (Chronic) Osteoporosis (Chronic) Celiac disease (Chronic 06/12/13) DVT (deep venous thrombosis) (Chronic) Cortical cataract of left eye (Resolved) Nuclear sclerotic cataract of left eye (Resolved) GERD (gastroesophageal reflux disease) Osteoarthritis Paroxysmal atrial fibrillation Polymyalgia rheumatica Surgical History Status post cataract extraction and insertion of intraocular lens of left eye (Chronic 05/02/18) Cholecystectomy (~01/2007) Colonoscopy - MAC Hemorrhoidal Banding (04/27/17) Social History Smoking/Tobacco Use Status: Never Alcohol Intake: never Drug use: Never Substance use type: does not use current occupation: Cleaning Services Pets and animals: No What type of physical activity do you participate in: none Jennifer/Restoration: Confucianism Special jennifer needs: No Do you feel safe in your relationship?: Yes Meds Home Medications Medication Instructions Recorded Confirmed Type Coq10 Sg 100 Softgel 1 ea PO DAILY 09/02/12 05/02/18 History Systane Liquid Gel 1 drp OPHTHALMIC BID 09/02/12 05/02/18 History loratadine [Claritin] 10 mg PO DAILY PRN #90 tab-cap 09/02/12 04/27/18 History oxymetazoline [Afrin 1 spry NS BID PRN spray 04/02/15 04/27/18 History (oxymetazoline)] calcium carbonate [Tums Extra 300 mg PO PRN PRN 03/03/17 05/02/18 History Strength Smoothies] magnesium hydroxide [Milk of 30 ml PO HS PRN PRN #1 btl 04/27/17 05/02/18 Rx Magnesia] metoprolol tartrate 25 mg PO BID #180 tab-cap 05/18/17 05/02/18 Rx ascorbic acid 1,000 See Rx Instructions PO DAILY each 12/28/17 04/27/18 History ow-ceakjbcabdra-egibgvcs powder effervescent pack prednisone 5 mg tablet 5 mg PO DAILY #30 tab 04/22/18 05/02/18 Rx Allergies Allergy/AdvReac Type Severity Reaction Status Date / Time carbamazepine AdvReac Severe Confusion Verified 05/02/18 09:36 and disorientation morphine AdvReac Intermediate made my Unverified 05/02/18 09:36 chest feel likie I was in a vice Exam OCULAR EXAM:: Most recent ocular examination is significant for corrected visual acuity of 20/30 OD, 20/20 OS. Intraocular pressure is 19 OD, 14 OS. Extraocular motility is normal. Slit-lamp examination is significant for pupils dilating to 5 mm OU. 2-3+ nuclear with 1+ cortical cataract in the right eye. Well-positioned PCIOL OS with clear posterior capsule. Dilated funduscopic examination is significant for disc cupping of 0.5 OU with normal vessels. There are some macular pigmentary changes OU with slight epiretinal membrane. Peripheral retina and vitreous are normal OU. BRIGHTNESS ACUITY TESTING (BAT):: Brightness acuity testing of the right eye off is 20/30. Low is 20/40. Medium is 20/50. High is 20/50. Assessment and Plan (1) Nuclear sclerotic cataract of right eye: Current visit: No Status: Acute Assessment: Visually significant cataract, right eye. Plan: Cataract extraction with intraocular lens implantation, right eye (2) Cortical cataract of right eye: Current visit: No Status: Acute Assessment: Visually significant cataract, right eye. Plan: Cataract extraction with intraocular lens implantation, right eye Note: NOTE:: The details of the planned surgery, including the risks, indications,limitations,expectations,outcome and possible complications were explained to the patient. The patient understands the complications including, but not limited to: infection, hemorrhage, posterior dislocation of the lens or nuclear fragments which may require the intervention of a vitreoretinal surgeon, possible loss of the eye, or from anesthetic complications. The patient has been made aware of the option of not having surgery, that vision following surgery may not be equal to that prior to surgery, and that the planned surgery may not achieve the intended results. Following this discussion, which the patient appeared to understand, the patient wishes to proceed with cataract surgery with lens implantation of the affected eye to improve and maximize vision.
--- NOTE | 2018-05-15 19:42 | W.PM.DSUDISC ---
Discharge Plan Disposition Patient Disposition: HOME Condition: Stable Discharge Details Attending Provider: Geoffrey Angel Primary Care Provider: Andrez Anthony Home Meds and New Rx's Prescriptions: No Action Emergen-C Immune Plus 1,000 mg powder effervescent in packet See Patient Comments PO DAILY RF: 0 prednisone 5 mg tablet 5 mg PO DAILY Qty: 30 RF: 3 loratadine [Claritin] 10 MG tablet 10 mg PO DAILY PRNQty: 90 RF: 4 Systane Liquid Gel 15 ML drops, liquid gel 1 drp Ophthalmic BID RF: 0 COQ10 SG 100 SOFTGEL 1 EACH capsule 1 ea PO DAILY RF: 0 oxymetazoline [Afrin (oxymetazoline)] 15 ML spray,non-aerosol 1 spry NS BID PRNRF: 0 metoprolol tartrate 25 MG tablet 25 mg PO BID Qty: 180 RF: 4 calcium carbonate [Tums Extra Strength Smoothies] 300 MG tablet,chewable 300 mg PO PRN PRNRF: 0 magnesium hydroxide [Milk of Magnesia] 30 ML suspension 30 ml PO HS PRN PRN (Reason: Constipation) Qty: 1 RF: 0 Discharge Instructions Stand Alone Forms: Post-op Topical Cataract, Press Ganey (DSU) Discharge Orders Discharge Orders: Discharge Order (Routine); Ordered 05/16/18 Ordered By: Geoffrey Angel DS: Diagnosis Discharge Diagnosis (1) Nuclear sclerotic cataract of right eye: Status: Resolved (2) Cortical cataract of right eye: Status: Resolved (3) Status post cataract extraction and insertion of intraocular lens of right eye: Status: Chronic
--- NOTE | 2018-05-15 19:45 | ROE_ITS ---
Date of service: 05/16/18 Time of Service: 10:37 Operative Note PRE-OP DIAGNOSIS: Cataract, right eye PROCEDURE: Cataract extraction using phacoemulsification with intraocular lens implant, right eye SURGEON: Geoffrey Angel ANESTHESIA: MAC and local (sub-tenon's anesthetic infiltration) ESTIMATED BLOOD LOSS: 0 PATHOLOGY: none sent COMPLICATIONS: None Patient was transported to: same day Patient's condition: stable Implants: Ryan and Ryan Vision / [employer] Tecnis ZCB00 intraocular lens Indications: Progressive decreased vision due to cataract, right eye Procedure Description: CATARACT SURGERY OPERATIVE REPORT PREOPERATIVE DIAGNOSIS: Nuclear/cortical cataract, right eye POSTOPERATIVE DIAGNOSIS: Same OPERATION: Cataract extraction using phacoemulsification with posterior chamber intraocular lens implant, right eye. IOL: IOL Area Director Of Home Health Sales/Model: J&J [employer] / OLLIE Tecnis ZCB00 IOL Power: + 25.0 diopters IOL Serial Number: [id number] Optic Diameter: 6.0mm Haptic/Overall Diameter: 13.0mm PHACO INFO: [employer]Driver[employer]urion Vision System with OZil and Active Fluidics Cumulative Dispersed Energy (CDE): 12.49 seconds SURGEON: Geoffrey Angel MD, FORD ANESTHESIA: Monitored Anesthesia Care (MAC), with local sub-tenon's anesthetic infiltration COMPLICATIONS: None SPECIMENS: None INDICATIONS FOR PROCEDURE: The patient is an 82-year-old lady with progressive decreased vision in both eyes secondary to the development of bilateral nuclear and cortical cataracts. She has already undergone cataract surgery in her left eye on 05/02/2018 and is doing well postoperatively. She now presents for cataract surgery in the right eye PROCEDURE: The correct surgical eye was identified and marked as the right eye and the pupil was dilated in the preoperative area using mydriatics and cycloplegics. The dilated pupil size was 6.5 mm. Oral sedation was administered in the form of an Imprimis MKO Melt (midazolam 3mg/ketamine 25mg/ondansetron 2mg). The patient was brought to the operating room where cardiopulmonary monitoring was instituted and surgical time-out was performed, confirming the correct operative eye and IOL power. Topical anesthesia was administered and ophthalmic povidone-iodine 5% was instilled into the conjunctival fornices. Lidocaine gel was applied to the cornea and the vikki-ocular area was prepped with Betadine 10% solution and draped in the usual sterile fashion for intraocular surgery, including an aperture drape. A Tegaderm transparent film dressing was cut in half and used to cover the lashes and lid margins. Care was taken to sequester the lashes and lid margins under the Tegaderm dressing. A lid speculum was placed between the lids of the operative eye and the Adiel-Ninfa operating microscope was maneuvered into position. Vernon scissors were then used to make a conjunctival buttonhole approximately 6mm posterior to the limbus in the inferonasal quadrant. Blunt dissection was carried out to expose bare sclera, and a blunt-tipped sub-tenon?s anesthesia cannula was introduced and passed posteriorly along the globe where non-pres erved plain lidocaine was injected into posterior sub-Tenon?s space. A sideport knife was used to make a paracentesis port inferiortemporally, and the anterior chamber was filled with Healon GV. A 2.4mm keratome knife was used to create a half-thickness groove at the limbus and then to construct a three-plane near- clear corneal tunnel extending 2.0mm into clear cornea in the superiortemporal position. . A flap was raised on the anterior capsule and capsulorhexis forceps were used to complete a continuous curvilinear capsulorhexis of 5.0 mm. Balanced salt solution was then used to perform cortical cleaving hydrodissection and nuclear hydrodelineation until the lens could be freely rotated within the capsular bag. The lens nucleus was then disassembled and removed within the capsular bag and iris plane using phacoemulsification. Residual cortical material was removed using the I/A handpiece. The posterior capsule was carefully polished to remove as much residual lens epithelial cells as safely possible. The capsular bag was then inflated and the anterior chamber deepened with viscoelastic. The lens implant described above was inserted into the capsular bag using the OLLIE [place] Injector. A Kuglen hook was used to dial the IOL into position. Residual viscoelastic was then removed first from posterior to the IOL, then from the anterior chamber using the I/A handpiece. The lens implant was noted to center nicely within the capsular bag. The incisions were stromally hydrated, and the anterior chamber was reformed using BSS. Then 0.4cc of moxifloxacin 1.5mg/ml were injected into the capsular bag and anterior chamber. The incisions were checked with a Weck spear and found to be secure. Several drops of ophthalmic povidone-iodine 5% were then applied to the eye followed by two drops of Imprimis combination moxifloxacin/dexamethasone solution. The drapes were removed and a clear plastic protective eye shield was placed over the eye. The patient was then returned to Same Day Surgery in stable condition.
[2018-05-16] MEDS: Tetracaine 0.5% 4 ML BTL OD ×4 (09:20→10:08)
[2018-05-16] MEDS: Tropicam./Phenyleph. (1/2.5%) 5 ML BTL OD ×3 (09:20→09:30)
[2018-05-16 09:24] VITALS: BP 149/75; PULSE 88; RESP 18; TEMP 36.5; O2SAT 96
[2018-05-16] MEDS: Povidone-Iodine Ophth 30 ML BTL (10:07)
[2018-05-16] MEDS: Lidocaine 2% Jelly 6 ML SYR (10:07)
[2018-05-16] MEDS: Balanced Salt Soln.-PLUS 500 ML BAG (10:12)
[2018-05-16] MEDS: Lidocaine 1% Pres-Free 5 ML VIAL (10:12)
[2018-05-16 10:57] VITALS: BP 133/84; PULSE 87; RESP 16; TEMP 36.8; O2SAT 94
== END 2018-05-16 11:18 | disposition home or self-care (01) ==
LOC: SUR 07:59
PROVIDERS: PCP Family Medicine; Visit Provider Ophthalmology
PROC: (CPT 66984; principal; 2018-05-16 11:15)
DX: H25.811 Combined forms of age-related cataract, right eye (principal); Z98.42 Cataract extraction status, left eye; Z96.1 Presence of intraocular lens; I10 Essential (primary) hypertension; K21.9 Gastro-esophageal reflux disease without esophagitis
CPT/HCPCS: 66984; V2632

== ENCOUNTER 2018-05-20 17:03 | Emergency (ER) | payer MEDICARE, OTHER, SELFPAY ==
[2018-05-20] VITALS (20 sets, daily range): BP systolic 145–169; BP diastolic 72–118; PULSE 90–117; RESP 14–20; TEMP 36.7–36.9; O2SAT 95–98
--- NOTE | 2018-05-20 17:24 | DI.CT_ITS ---
SYMPTOM/DIAGNOSIS: VOMITING ABDOMEN AND PELVIC CT: CT examination of the abdomen and pelvis was performed with a bolus infusion of 81 cc's of Omnipaque 350 and ingestion of dilute barium. Note is made of previously noted inferior and superior pubic ramus fractures and there is an essentially nondisplaced left sacral ala fracture noted on today's examination. This presumably represents an insufficiency fracture. Liver and spleen are unremarkable in appearance. Gallbladder has been surgically removed. No biliary dilatation is seen. 4 mm. low attenuation lesion in the body of the pancreas probably associate with the pancreatic duct, this is statistically likely to represent a benign process. Follow up CT may be obtained in 6 months if clinically appropriate. Adrenals and kidneys are unremarkable in appearance. No abdominal or pelvic adenopathy is seen. Diastatic recti noted without gross abdominal wall hernia. There may be slight prominence of the ureters bilaterally secondary to urinary bladder distension. No gross evidence of obstruction. TILE MOLDER HAND structures appear intact as visualized. No evidence of appendicitis or diverticulitis. CONCLUSION: No evidence of acute intra-abdominal process.
[2018-05-20] MEDS: Normal Saline 1,000 ML 1000 ML IV ×2 (17:35→19:30)
--- NOTE | 2018-05-20 17:37 | ED.GENADUL_ITS ---
Discharge Plan Disposition Patient Disposition: HOME Condition: Good Discharge Details Chief Complaint: Nausea/Vomit/Diar Clinical Impression: Gastroenteritis, Nausea & vomiting, Acute hyponatremia Primary Care Provider: Andrez Anthony ED Provider: Temo Douglas Home Meds and New Rx's Prescriptions: New ondansetron HCl [Zofran] 4 mg tablet 4 mg PO BID-TID PRN (Reason: nausea and vomiting) Qty: 5 RF: 0 No Action prednisone 5 mg tablet 5 mg PO DAILY Qty: 30 RF: 3 Systane Liquid Gel 15 ML drops, liquid gel 1 drp Ophthalmic BID RF: 0 COQ10 SG 100 SOFTGEL 1 EACH capsule 1 ea PO DAILY RF: 0 oxymetazoline [Afrin (oxymetazoline)] 15 ML spray,non-aerosol 1 spry NS BID PRNRF: 0 metoprolol tartrate 25 MG tablet 25 mg PO BID Qty: 180 RF: 4 calcium carbonate [Tums Extra Strength Smoothies] 300 MG tablet,chewable 300 mg PO PRN PRNRF: 0 Discharge Instructions Instructions: Gastroenteritis (ED), Acute Nausea and Vomiting (ED) Additional Instructions: Please take the Zofran only as needed for nausea. Please eat salty foods. Please drink 10-12 cups of water per day. If you notice any worsening of your symptoms, or any new symptoms such as vomiting, diarrhea, fever, chills, shortness of breath, chest pain, numbness, weakness, or fainting , please return immediately to the emergency department for reevaluation. Please follow up with your primary care provider as soon as possible for reassessment and reevaluation. As always, it was a pleasure participating in your medical care today. Referrals: Andrez Anthony MD [Primary Care Provider] - Medical Decision Making This is a pleasant 82-year-old female with a past medical history of polymyalgia rheumatica, recent cataract surgery, who is on chronic prednisone, who presents today for evaluation of vomiting for the last 1-1/2 days. She states that the vomitus is slightly green in color. She denies any abdominal pain chest pain shortness of breath or other abnormality. Past surgical history is positive for cholecystectomy. She denies any associated hematochezia melena or acholic stool. No numbness tingling or weakness. Physical exam demonstrates no tenderness whatsoever on palpation of the abdomen. Signs and symptoms are inconsistent with dissection or aneurysm. I am concerned for a viral gastroenteritis, however because of her age I feel that obstruction or other acute abdominal or cardiac pathology must be ruled out. We will rehydrate, can EKG, labs, and CT scan. [address] scan of her abdomen and pelvis is returned demonstrates no significant acute process. There is an old healing pubic rami fracture, slightly distended collecting system for the urinary tracts, but no other acute problems. Urinalysis is negative for infection, laboratory workup does show mild hyponatremia, however the patient has had this multiple times in the past, and this is actually higher than previous levels. She was given 2 L of normal saline, and did tolerate a p.o. trial and has tolerated this very well without complication or difficulty. She has no significant vomiting or diarrhea at this time. She is feeling much better after the rehydration. She is requesting to be discharged home. With her ability to tolerate p.o., as well as relatively benign laboratory workup, especially in reference to her chronic acute levels, I do feel that she can be safely discharged home with close follow-up. I did give her the option of admission and observation, however at this time the patient preferred to go home. We will give Zofran prescription for home use as well as one to go. I have extensively reviewed the treatment plan and discharge instructions with the patient and their family. I have addressed all patient concerns at this time. The patient and family was made aware of what symptoms to monitor for that would warrant a return to the emergency department. Discussed the plan with the patient and family, they demonstrate verbal understanding and agreement with our assessment and plan at this time. EKG 17:18 Rate 99, intervals normal, sinus rhythm, no significant ST elevations or depressions. Less than 1 mm elevation in V1, no depressions. Questionable Q waves in lead III. No other abnormalities. FINDINGS: Lower thorax: Mild dependent subsegmental atelectasis. Tiny hiatal hernia. ABDOMEN: Liver: No mass. Gallbladder and bile ducts: Cholecystectomy. Pancreas: Miniscule low-density structure in the body of the pancreas, probably due to 4 mm, statistically most likely a benign structure such as intraductal papillary mucinous lesion. [facility] The urinary bladder is distended. Spleen: No splenomegaly or focal lesions. Adrenals: No mass. Kidneys and ureters: Significant distention of the right renal pelvis, mild right hydronephrosis, mild dilation of the left renal pelvis. No renal masses. Stomach and bowel: Diverticulosis of the sigmoid colon. 1-2 right sided colonic diverticula are seen. No focal pathology in the small bowel. Appendix: No evidence of appendicitis. PELVIS: Bladder: Significantly distended. No significant wall thickening and the urinary bladder. Reproductive: Unremarkable as visualized. ABDOMEN and PELVIS: Intraperitoneal space: No free air. No significant fluid collection. Bones/joints: Subacute appearing, healing right superior and inferior pubic rami fractures. Healing fracture of the left sacral body, may represent an insufficiency fracture. Degenerative changes in the spine. Mild multilevel listhesis in the lumbar spine likely related to degenerative changes. L5 pars defects are superimposed. No acute fracture is identified. Soft tissues: Diastasis recti. Tiny fat-containing umbilical hernia. Vasculature: Mild aortoiliac atherosclerosis. No aortic aneurysm. Lymph nodes: No significantly enlarged lymph nodes. IMPRESSION: 1. Mild bilateral collecting system obstruction probably related to the distended urinary bladder. 2. Subacute appearing, healing right superior and inferior pubic rami fractures. Healing fracture of the left sacral body, may represent an insufficiency fracture. 3. Incidental findings as described. Dictated and Authenticated by: Maddi Sanchez MD. Ordering:TRENTON Plascencia MD [facility] General Date/Time Provider Initiated Documentation: 05/20/18 17:04 . HPI Narrative: This is a pleasant 82-year-old female with a past medical history of hypertension, recent cataract surgery within the last month, chronic prednisone secondary to polymyalgia rheumatica, she presents today for vomiting for the last 1.5 days. She states that her vomit has been green in color, she has not been able to keep anything down. She has had difficulty drinking secondary to nausea and vomiting. She denies any diarrhea or abdominal pain. She denies any chest pain, chest pressure, shortness of breath, arm, neck, or shoulder pain. She denies any numbness, tingling or weakness. She denies any previous cardiac history. Of note she has been on prednisone for greater than 6 months for her polymyalgia rheumatica. Patient denies any hematemesis, hematochezia, melena, acholic stool, headache, fever or chills. Past surgical history is positive for cholecystectomy. She also complains of a very mild headache. Not worst headache of her life, no thunderclap component, no neck pain or fever. Related Data Home Medications Medication Instructions Recorded Confirmed Coq10 Sg 100 Softgel 1 ea PO DAILY 09/02/12 05/20/18 Systane Liquid Gel 1 drp OPHTHALMIC BID 09/02/12 05/20/18 oxymetazoline [Afrin 1 spry NS BID PRN spray 04/02/15 05/20/18 (oxymetazoline)] calcium carbonate [Tums Extra 300 mg PO PRN PRN 03/03/17 05/20/18 Strength Smoothies] metoprolol tartrate 25 mg PO BID #180 tab-cap 05/18/17 05/20/18 prednisone 5 mg tablet 5 mg PO DAILY #30 tab 04/22/18 05/20/18 ondansetron HCl [Zofran] 4 mg PO BID-TID PRN #5 tab 05/20/18 Previous Rx's Medication Instructions Recorded metoprolol tartrate 25 mg PO BID #180 tab-cap 05/18/17 prednisone 5 mg tablet 5 mg PO DAILY #30 tab 04/22/18 ondansetron HCl [Zofran] 4 mg PO BID-TID PRN #5 tab 05/20/18 Allergies Allergy/AdvReac Type Severity Reaction Status Date / Time carbamazepine AdvReac Severe Confusion Verified 05/20/18 17:20 and disorientation morphine AdvReac Intermediate made my Unverified 05/20/18 17:20 chest feel likie I was in a vice General Stated Complaint: Nausea/Vomit/Diar HARSHAD: 3 Review of Systems Review of Systems All systems reviewed & are unremarkable except as noted in HPI and below 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) History of pelvic fracture (Chronic) Osteoporosis (Chronic) Celiac disease (Chronic 06/12/13) DVT (deep venous thrombosis) (Chronic) Cortical cataract of left eye (Resolved) Nuclear sclerotic cataract of left eye (Resolved) GERD (gastroesophageal reflux disease) Osteoarthritis Paroxysmal atrial fibrillation Polymyalgia rheumatica Surgical History Status post cataract extraction and insertion of intraocular lens of right eye (Chronic 05/16/18) Status post cataract extraction and insertion of intraocular lens of left eye (Chronic 05/02/18) Cholecystectomy (~01/2007) Colonoscopy - MAC Hemorrhoidal Banding (04/27/17) Social History Smoking/Tobacco Use Status: Never Alcohol Intake: never Drug use: Never Substance use type: does not use current occupation: Cleaning Services Pets and animals: No What type of physical activity do you participate in: none Jennifer/Lutheran: Gnosticist Special jennifer needs: No Do you feel safe at home: Yes Do you feel safe in your relationship?: Yes Exam Narrative Exam Narrative: 1.Const: Well-nourished, Well-developed, appearing stated age 2.Eyes: PERRL, no conjunctival injection, and symmetrical lids. 3.ENT: Atraumatic external nose and ears. Dry MM. Neck: Symmetric, trachea midline, No thyromegaly. Patient demonstrates good movement of cervical neck. There is no nuchal rigidity, no nuchal tenderness. Patient is able to flex the neck without any difficulty or significant pain. Negative Kernig's and Brudzinski sign. 4.CVS: +S1/S2, No murmurs or gallops. Peripheral pulses 2+ and equal in all extremities. Brisk capillary refill in all extremities. 5.RESP: Unlabored respiratory effort. Clear to auscultation bilaterally. No wheezes rales or rhonchi 6.GI: Soft, Nontender/Nondistended, No hepatosplenomegaly. No guarding or rebound. 7.MSK: Normocephalic/Atraumatic, Extremities w/o deformity or ttp No cyanosis or clubbing, Normal movement of all extremities 8.Skin: Warm, Dry. No rashes or lesions. 9.Neuro: egg gatherer II-XII grossly intact. Sensation grossly intact, no focal neurologic deficits. 10.Psych: (AAO) x3. Appropriate mood and affect Course Vital Signs Temperature 36.7 C 05/20/18 17:09 Pulse 106 H 05/20/18 17:09 Respiratory Rate 16 05/20/18 17:09 Blood Pressure 156/80 H 05/20/18 17:09 Pulse Oximetry 98 05/20/18 17:09 Temperature 36.7 C 05/20/18 17:09 Temperature Source Skin 05/20/18 17:09 Pulse 106 H 05/20/18 17:09 Respiratory Rate 16 05/20/18 17:09 Blood Pressure 156/80 H 05/20/18 17:09 Pulse Oximetry 98 05/20/18 17:09 Oxygen Delivery Method Room Air 05/20/18 17:09 Oxygen Flow Rate 0 05/20/18 17:09 Pain Level 7 05/20/18 17:09
[2018-05-20] MEDS: Acetaminophen 500 MG TAB 1000 MG PO (17:40)
[2018-05-20] MEDS: Ondansetron 4 MG/2 ML VIAL IVP (17:41)
[2018-05-20] MEDS: Prochlorperazine 10 MG/2 ML VIAL 5 MG IVP (17:43)
[2018-05-20 17:45] LABS: Abs Immature Grans 0.02 k/cumm (0.0-0.09); Absolute Basophil Count 0.02 k/cumm (0.0-0.2); Absolute Eosinophil Count 0.05 k/cumm (0.0-0.7); Absolute Lymphocyte Count 1.63 k/cumm (1.2-3.4); Absolute Monocyte Count 0.88 k/cumm (0.11-0.7); Absolute Neutrophil Count 8.12 k/cumm (1.2-6.7); Basophils % 0.2; Eosinophils % 0.5; HCT 41.5 % (36.0-46.0); HGB 14.3 g/dL (12.0-15.5); Immature Grans % 0.2; Lymphocytes % 15.2; Mean Corp. HGB Concentration 34.5 g/dL (32.0-36.0); Mean Corpuscular Hemoglobin 30.1 pg (27.0-33.0); Mean Corpuscular Volume 87.4 fL (80-95); Mean Platelet Volume 10.5 fL (8.0-11.0); Monocytes % 8.2; Neutrophils % 75.7; Platelet Count 286 x1000/uL (130-400); RBC 4.75 m/cumm (4.00-5.20); RBC Distribution Width 12.9 % (11.7-14.6); White Blood Cell Count 10.72 k/cumm (4.4-10.8)
[2018-05-20 18:00] LABS: ALT 23 U/L (12-78); AST 30 U/L (15-37); Alkaline Phosphatase 102 U/L (46-116); Anion Gap 13.4 mmol/L (3-11); BUN 18 mg/dL (7-18); Bilirubin, Total 0.6 mg/dL (0.2-1.0); CO2 23.6 mmol/L (21.0-32.0); CREATININE 1.12 mg/dL (0.55-1.02); Calcium 9.4 mg/dL (8.5-10.1); Chloride 91 mmol/L (98-107); Estimated GFR 46.57 (mL/min/1.73m2); Glucose 117 mg/dL (70-100); Lipase 119 U/L (73-393); Potassium 4.1 mmol/L (3.5-5.1); Sodium 128 mmol/L (136-145); Total Protein 7.9 g/dL (6.4-8.2); Troponin I < 0.02 ng/mL (0.00-0.06)
[2018-05-20] MEDS: Omnipaque 350 MG/ML 100 ML BTL IJ (19:08)
[2018-05-20 19:32] LABS: Bilirubin Negative (Negative); Blood Trace-intact (Negative); Clarity Clear; Glucose Negative (Negative); Ketones Trace mg/dL (Negative); Leukocyte Esterase Negative (Negative); Nitrite Negative (Negative); Specific Gravity 1.015 (1.005-1.025); Urobilinogen 0.2 EU/dL (Up TO 0.2)
--- NOTE | 2018-05-20 19:42 | DI.VRAD_ITS ---
EXAM: CT Abdomen and Pelvis With Contrast EXAM DATE/TIME: 05/20/2018 5:27 PM CLINICAL HISTORY: 82 years old, female; Pain; Abdominal pain; Epigastric TECHNIQUE: Imaging protocol: Axial computed tomography images of the abdomen and pelvis with intravenous contrast. Coronal and sagittal reformatted images were created and reviewed. Radiation optimization: All CT scans at this facility use at least one of these dose optimization techniques: automated exposure control; mA and/or kV adjustment per patient size (includes targeted exams where dose is matched to clinical indication); or iterative reconstruction. Contrast material: [id number] Contrast volume: 81 ml Contrast route: iv COMPARISON: CR XR hip RT complete AP pelvis 11/04/2017 10:51 AM FINDINGS: Lower thorax: Mild dependent subsegmental atelectasis. Tiny hiatal hernia. ABDOMEN: Liver: No mass. Gallbladder and bile ducts: Cholecystectomy. Pancreas: Miniscule low-density structure in the body of the pancreas, probably due to 4 mm, statistically most likely a benign structure such as intraductal papillary mucinous lesion. [facility] The urinary bladder is distended. Spleen: No splenomegaly or focal lesions. Adrenals: No mass. Kidneys and ureters: Significant distention of the right renal pelvis, mild right hydronephrosis, mild dilation of the left renal pelvis. No renal masses. Stomach and bowel: Diverticulosis of the sigmoid colon. 1-2 right sided colonic diverticula are seen. No focal pathology in the small bowel. Appendix: No evidence of appendicitis. PELVIS: Bladder: Significantly distended. No significant wall thickening and the urinary bladder. Reproductive: Unremarkable as visualized. ABDOMEN and PELVIS: Intraperitoneal space: No free air. No significant fluid collection. Bones/joints: Subacute appearing, healing right superior and inferior pubic rami fractures. Healing fracture of the left sacral body, may represent an insufficiency fracture. Degenerative changes in the spine. Mild multilevel listhesis in the lumbar spine likely related to degenerative changes. L5 pars defects are superimposed. No acute fracture is identified. Soft tissues: Diastasis recti. Tiny fat-containing umbilical hernia. Vasculature: Mild aortoiliac atherosclerosis. No aortic aneurysm. Lymph nodes: No significantly enlarged lymph nodes. IMPRESSION: 1. Mild bilateral collecting system obstruction probably related to the distended urinary bladder. 2. Subacute appearing, healing right superior and inferior pubic rami fractures. Healing fracture of the left sacral body, may represent an insufficiency fracture. 3. Incidental findings as described. Dictated and Authenticated by: Maddi Sanchez MD. Ordering:TRENTON Plascencia MD
[2018-05-20 19:44] LABS: Bacteria Rare HPF (Negative); C & S Indicated? No; Casts Negative LPF (Negative); Crystals Negative HPF (Negative); Epithelial Cells Rare HPF (Negative); Mucus Negative (Negative); Other Cells Negative (Negative); RBC 0-2 (0-2); WBC Negative HPF (0-5)
[2018-05-20] MEDS: Ondansetron O.D.T. 4 MG TABEF (20:48)
== END 2018-05-20 20:49 | disposition home or self-care (01) ==
PROVIDERS: Emergency Provider Student in an Organized Health Care Education/Training Program; PCP Family Medicine
DX: K52.9 Noninfective gastroenteritis and colitis, unspecified (principal); R11.2 Nausea with vomiting, unspecified; E87.1 Hypo-osmolality and hyponatremia
CPT/HCPCS: 36415; 80053; 83690; 96361; 96374; 96375; 99285; 74177; 81003; 81015; 84484; 85025; 99284; J0780; J2405; J3490

== ENCOUNTER 2018-09-18 08:54 | Inpatient (IN) | payer MEDICARE, OTHER, SELFPAY ==
[2018-09-18] VITALS (28 sets, daily range): BP systolic 138–170; BP diastolic 50–77; PULSE 58–71; RESP 11–24; TEMP 36.2–36.9; O2SAT 92–99
--- NOTE | 2018-09-18 08:59 | DI.CT_ITS ---
SYMPTOM/DIAGNOSIS: FALLS, PAIN CT LUMBAR SPINE AND SACRUM: Comparison 05/20/18 There is an old left sacral alar fracture. This was present on the CT scan from 05/10/18. 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 There is Grade 1 pseudo spondylolisthesis of L3 on L4. No acute fractures or subluxations are seen in the lumbar spine. There are moderate degenerative changes present throughout the lumbar spine. Central spinal canal stenosis is seen from L2-3 through L4-L5. There is atherosclerosis of the abdominal aorta noted. There is diverticulosis of the colon. The bones appear osteopenic. IMPRESSION: No acute fracture or subluxation in the lumbar spine.
--- NOTE | 2018-09-18 09:00 | DI.CT_ITS ---
SYMPTOM/DIAGNOSIS: FALLS, PAIN CT BRAIN: Noncontrast examination was performed. Comparison 09/25/17 The ventricles and sulci are consistent with the patient's age. There is small vessel ischemic disease. No acute territorial infarct, hemorrhage, midline shift or mass effect is identified. The ventricles are intact. The basilar cisterns are patent. No fluid levels are seen in the visualized paranasal sinuses. The mastoid air cells are clear. The calvarium is intact. IMPRESSION: No acute intracranial process CT CERVICAL SPINE: Multiple contiguous axial images were obtained. Sagittal and coronal reformatted images were evaluated on the Siemens work station No acute fracture or subluxation is seen in the cervical spine. There is minimal anterolisthesis of C7 on T-1 and T1 on T2. Moderate degenerative changes are present throughout the cervical spine. The lung apices show no acute abnormality. IMPRESSION: No acute fracture or subluxation in the cervical spine.
--- NOTE | 2018-09-18 09:02 | W.ED.GENAD ---
Discharge Plan Disposition Patient Disposition: [facility] INPATIENT Condition: Stable Discharge Details Chief Complaint: GenMedical Clinical Impression: General weakness, Hyponatremia Primary Care Provider: Andrez Anthony ED Provider: Mikel Mayers Home Meds and New Rx's Prescriptions: No Action prednisone 5 mg tablet 5 mg PO DAILY Qty: 90 RF: 3 Systane Liquid Gel 15 ML drops, liquid gel 1 drp Ophthalmic BID RF: 0 COQ10 SG 100 SOFTGEL 1 EACH capsule 1 ea PO DAILY RF: 0 oxymetazoline [Afrin (oxymetazoline)] 15 ML spray,non-aerosol 1 spry NS BID PRNRF: 0 metoprolol tartrate 25 mg tablet 25 mg PO BID Qty: 180 RF: 4 calcium carbonate [Tums Extra Strength Smoothies] 300 MG tablet,chewable 300 mg PO PRN PRNRF: 0 ondansetron HCl [Zofran] 4 mg tablet 4 mg PO BID-TID PRN (Reason: nausea and vomiting) Qty: 5 RF: 0 Medical Decision Making 82 yo female with hx of pmr, afib and per med list not on blood thinners, who comes in with chief complaint of general weakness and feeling unsteady on her feet for a week with several falls last being . Denies fevers, chills, chest pain, sob, abd pain, vomit. she has head pain and does have a bruise superior to the left orbit, and also has midline low back pain without saddle anesthesia. She has no focal neuro deficits nih of 0 so doubt cva. Will obtain imaging of head/c spine and L spine to eval for traumatic injuries and also eval for anemia and electrolyte disorders and monitor. Will also check UA pt remains stable, she is unsteady when she tries to walk so didn't have her attempt this after she was unsteady just standing. Labs remarkable for Na of 123, imaging negative. She has a hx of SIADH per problem list though I can't find any documentatino in the chart on this. I initially ordered 1 L NS after initial exam and this was stopped after about 500cc. Spoke with Dr. Duenas who will admit for weakness and hyponatremia Differential Diagnosis uti, anemia, hyponatremia, sdh, compression fx Imaging Data Radiologic Study: Attestation: I personally reviewed and interpreted this imaging study as follows: Imaging: CT Scan Radiologist's impression: no acute findings on head and c spine CT Radiologic Study #2: Attestation: I personally reviewed and interpreted this imaging study as follows: Imaging: CT Scan Radiologist's impression: no acute findings on l spine ct Lab Data Lab results reviewed: Yes I reviewed the patient's lab results. ECG Data Attestation: I personally reviewed and interpreted this ECG (s) as follows: Prior ECG tracings: not available for review Interpretation: sinus rhythm, rate of 64, qtc 398, no acute st t wave ischemic findings HPI General Mode of arrival: wheelchair. Date/Time Provider Initiated Documentation: 09/18/18 08:55. Limitations to Documentation: no limitations. Information obtained by: patient. History of Present Illness 82 year old F presents to the emergency department with the chief complaint of general weakness, described as moderate, Patient started experiencing this week(s) (1) and it has been constant. No relieving factors improve symptom(s), No exacerbating factors reported . Patient did receive the following treatments prior to arrival, none Related Data Home Medications Medication Instructions Recorded Confirmed Coq10 Sg 100 Softgel 1 ea PO DAILY 09/02/12 09/15/18 Systane Liquid Gel 1 drp OPHTHALMIC BID 09/02/12 09/15/18 oxymetazoline [Afrin 1 spry NS BID PRN spray 04/02/15 09/15/18 (oxymetazoline)] calcium carbonate [Tums Extra 300 mg PO PRN PRN 03/03/17 09/18/18 Strength Smoothies] ondansetron HCl [Zofran] 4 mg PO BID-TID PRN #5 tab 05/20/18 09/18/18 metoprolol tartrate 25 mg tablet 25 mg PO BID #180 tab-cap 06/07/18 09/18/18 prednisone 5 mg tablet 5 mg PO DAILY #90 tab 08/30/18 09/18/18 Previous Rx's Medication Instructions Recorded ondansetron HCl [Zofran] 4 mg PO BID-TID PRN #5 tab 05/20/18 metoprolol tartrate 25 mg tablet 25 mg PO BID #180 tab-cap 06/07/18 prednisone 5 mg tablet 5 mg PO DAILY #90 tab 08/30/18 Allergies Allergy/AdvReac Type Severity Reaction Status Date / Time carbamazepine AdvReac Severe Confusion Verified 09/18/18 09:47 and disorientation morphine AdvReac Intermediate made my Verified 09/18/18 09:47 chest feel likie I was in a vice General HARSHAD: 3 Review of Systems Review of Systems All systems reviewed & are unremarkable except as noted in HPI and below Constitutional Denies chills and Denies fever(s) Cardiovascular Denies chest pain and Denies dyspnea Respiratory Denies cough and Denies dyspnea Gastrointestinal Denies abdominal pain, Denies nausea and Denies vomiting Integumentary/Breasts Denies rash Psychiatric Denies depression Endocrine Denies cold intolerance and Denies heat intolerance [facility] Medical History (Updated 09/15/18 @ 17:18 by Andrez Anthony MD) Atrial flutter (Resolved) Celiac disease (Chronic 06/12/13) Cortical cataract of left eye (Resolved) DVT (deep venous thrombosis) (Chronic) Epiretinal membrane (ERM) of left eye (Chronic) GERD (gastroesophageal reflux disease) History of pelvic fracture (Chronic) Nuclear sclerotic cataract of left eye (Resolved) Osteoarthritis Osteoporosis (Chronic) Paroxysmal atrial fibrillation Polymyalgia rheumatica Polymyalgia rheumatica (Resolved 08/14/14) Surgical History (Updated 08/26/18 @ 12:00 by Matthew Cotton) Cholecystectomy (~01/2007) Colonoscopy - MAC Hemorrhoidal Banding (04/27/17) Status post cataract extraction and insertion of intraocular lens of left eye (Chronic 05/02/18) Status post cataract extraction and insertion of intraocular lens of right eye (Chronic 05/16/18) Social History Smoking/Tobacco Use Status: Never Alcohol Intake: never Drug use: Never Substance use type: does not use current occupation: Cleaning Services Pets and animals: No What type of physical activity do you participate in: none Jennifer/Judaism: Scientologist Special jennifer needs: No Do you feel safe at home: Yes Do you feel safe in your relationship?: Yes Exam Const General: no acute distress Orientation: alert HENIN Head: no palpable skull fracture Ears: external ears normal General nose exam: external nose normal Mouth: moist mucous membranes Eyes General: appearance normal, both eyes and all related structures Neck Neck: normal visual inspection Resp Effort & Inspection: normal respiratory effort and able to speak in complete sentences Cardio Rate: regular rate Skin General skin exam: no rashes or lesions noted Neuro General: alert and oriented x3 Extrem General: normal to inspection Psych Mental Status: mental status grossly normal
[2018-09-18] MEDS: Acetaminophen 500 MG TAB 1000 MG PO (09:11)
[2018-09-18] MEDS: Normal Saline Flush 10 ML SYR IVP ×3 (09:15→23:56)
[2018-09-18] MEDS: Normal Saline 1,000 ML 1000 ML IV (09:25)
[2018-09-18 09:30] LABS: Abs Immature Grans 0.05 k/cumm (0.0-0.09); Absolute Basophil Count 0.02 k/cumm (0.0-0.2); Absolute Eosinophil Count 0.13 k/cumm (0.0-0.7); Absolute Lymphocyte Count 1.65 k/cumm (1.2-3.4); Absolute Monocyte Count 1.08 k/cumm (0.11-0.7); Absolute Neutrophil Count 5.69 k/cumm (1.2-6.7); Basophils % 0.2; Eosinophils % 1.5; HCT 38.6 % (36.0-46.0); HGB 13.3 g/dL (12.0-15.5); Immature Grans % 0.6; Lymphocytes % 19.1; Mean Corp. HGB Concentration 34.5 g/dL (32.0-36.0); Mean Corpuscular Volume 84.1 fL (80-95); Mean Platelet Volume 10.5 fL (8.0-11.0); Monocytes % 12.5; Neutrophils % 66.1; Platelet Count 295 x1000/uL (130-400); RBC 4.59 m/cumm (4.00-5.20); RBC Distribution Width 12.4 % (11.7-14.6); White Blood Cell Count 8.62 k/cumm (4.4-10.8)
[2018-09-18 09:41] LABS: PTT Activated 23.4 sec (21.0-31.4); Prothrombin Time 9.9 sec (9.3-11.0)
[2018-09-18 09:43] LABS: ALT 27 U/L (12-78); AST 31 U/L (15-37); Albumin 3.5 g/dL (3.4-5.0); Alkaline Phosphatase 85 U/L (46-116); Anion Gap 6.2 mmol/L (3-11); BUN 15 mg/dL (7-18); Bilirubin, Total 0.4 mg/dL (0.2-1.0); CO2 29.8 mmol/L (21.0-32.0); CREATININE 1.04 mg/dL (0.55-1.02); Chloride 87 mmol/L (98-107); Estimated GFR 50.73 (mL/min/1.73m2); Glucose 105 mg/dL (70-100); Magnesium 1.8 mg/dL (1.8-2.4); Potassium 4.4 mmol/L (3.5-5.1); Total Protein 7.1 g/dL (6.4-8.2)
[2018-09-18 09:50] LABS: Sodium 123 mmol/L (136-145)
[2018-09-18 10:11] LABS: Bilirubin Negative (Negative); Blood Negative (Negative); Clarity Clear (Clear); Glucose Negative (Negative); Ketones Negative (Negative); Leukocyte Esterase Small (Negative); Nitrite Negative (Negative); Urobilinogen 0.2 EU/dL (Up TO 0.2); pH 7.5 (5-8)
--- NOTE | 2018-09-18 10:22 | DI.VRAD_ITS ---
EXAM: CT Head Without Contrast EXAM DATE/TIME: 09/18/2018 9:01 AM CLINICAL HISTORY: 82 years old, female; Other: Falls, pain TECHNIQUE: Imaging protocol: Computed tomography images of the head without contrast. Coronal and sagittal reformatted images were created and reviewed. Radiation optimization: All CT scans at this facility use at least one of these dose optimization techniques: automated exposure control; mA and/or kV adjustment per patient size (includes targeted exams where dose is matched to clinical indication); or iterative reconstruction. COMPARISON: CT HEAD WITHOUT CONTRAST 09/25/2017 3:54 PM FINDINGS: Brain: There is no acute intracranial hemorrhage. There is lucency in the cerebral white matter, likely microvascular disease although non-specific. Smith white differentiation is intact. There are no extra-axial fluid collections. No evidence of mass. There is no mass effect or midline shift. Ventricles: The ventricles and sulci are enlarged, consistent with volume loss / atrophy. No hydrocephalus. Bones/joints: No acute fracture. Sinuses: There is minimal right-sided paranasal sinus retention cysts or polyps. Mastoid air cells: No significant mastoid effusion. Soft tissues: Unremarkable as visualized. Vasculature: There is vascular calcification. IMPRESSION: 1. No evidence of acute intracranial abnormality. No evidence of acute infarction, hemorrhage, or mass. 2. Atrophy and microvascular disease. EXAM: CT Cervical Spine Without Contrast EXAM DATE/TIME: 09/18/2018 9:01 AM CLINICAL HISTORY: 82 years old, female; Other: Falls, pain TECHNIQUE: Imaging protocol: Computed tomography images of the cervical spine without contrast. Coronal and sagittal reformatted images were created and reviewed. Radiation optimization: All CT scans at this facility use at least one of these dose optimization techniques: automated exposure control; mA and/or kV adjustment per patient size (includes targeted exams where dose is matched to clinical indication); or iterative reconstruction. COMPARISON: CT HEAD WITHOUT CONTRAST 09/25/2017 3:54 PM FINDINGS: Vertebrae: No acute fracture. There is slight anterior listhesis at C7-T1 and T1-T2. Discs/Spinal canal/Neural foramina: Degenerative changes with multilevel neural foraminal narrowing. No evidence of significant spinal stenosis. Soft tissues: Unremarkable. Lungs: Lung apices are unremarkable for acute finding. Vasculature: There is vascular calcification. IMPRESSION: No evidence of acute fracture. Dictated and Authenticated by: Concetta Mejia MD. Ordering:TOMMY Morin MD
[2018-09-18 10:23] LABS: Sodium, Urine < 5 mmol/L
[2018-09-18 10:25] LABS: Epithelial Cells Few HPF (Negative); RBC Negative (0-2)
[2018-09-18 10:26] LABS: Bacteria Rare HPF (Negative); C & S Indicated? Yes; Casts Negative LPF (Negative); Crystals Negative HPF (Negative); Mucus Negative (Negative); Other Cells Few Yeast (Negative)
--- NOTE | 2018-09-18 10:28 | DI.VRAD_ITS ---
EXAM: CT Lumbar Spine Without Contrast EXAM DATE/TIME: 09/18/2018 9:01 AM CLINICAL HISTORY: 82 years old, female; Other: Pain S/P fall TECHNIQUE: Imaging protocol: Computed tomography images of the lumbar spine without contrast. Coronal and sagittal reformatted images were created and reviewed. Radiation optimization: All CT scans at this facility use at least one of these dose optimization techniques: automated exposure control; mA and/or kV adjustment per patient size (includes targeted exams where dose is matched to clinical indication); or iterative reconstruction. COMPARISON: No relevant prior studies available. FINDINGS: Vertebrae: There is no acute lumbar fracture. Again seen is degenerative change with disc height loss, vacuum discs, facet degeneration, disc bulges and osteophytes. There is stable anterior listhesis L3-L4 and L5-S1. There are chronic bilateral L5 pars defects. Discs/Spinal canal/Neural foramina: Spinal stenosis at L2-L3 through L4-L5. Sacrum/coccyx: There is nonacute fracture of left sacral ala. Stomach and bowel: Diverticulosis. Vasculature: Atherosclerotic change without aortic aneurysm. Soft tissues: Unremarkable. IMPRESSION: No acute fracture. Nonacute findings are stable. Dictated and Authenticated by: Concetta Mejia MD. Ordering:TOMMY Morin MD
[2018-09-18 11:43] LABS: C-Reactive Protein 0.17 mg/dL (0.0-0.3); FREE T4 1.05 ng/dL (0.76-1.46); TSH 1.78 uIU/mL (0.36-3.74)
[2018-09-18 12:00] LABS: ESR 16 mm/hr (0-30)
[2018-09-18] MEDS: Enoxaparin 40 MG/0.4 ML SYR SC (13:35)
--- NOTE | 2018-09-18 16:41 | W.PM.HP.N ---
Date of service: 09/18/18 Time of Service: 16:46 Assessment and Plan (1) SIADH (syndrome of inappropriate ADH production): Current visit: No Status: Chronic With acute on chronic hyponatremia and excessive water drinking at home. Will monitor serial sodiums and follow fluid restriction today. To be sure, I am also ruling out tick-borne illness as cause for hyponatremia. (2) PMR (polymyalgia rheumatica): Current visit: No Status: Chronic Per ESR/CRP, it seems unlikely that the patient is having an acute flare. However, I will give her stress dose steroids for the next 24 hours - as post-concussive syndrome could be triggering slight acute adrenal insufficiency. (3) Post concussive syndrome: Current visit: Yes Status: Acute Monitor neuro checks. (4) Right lumbar radiculopathy: Current visit: No Status: Chronic This is old, per chart review, but clinically worse today. I have ordered an MRI of the lumbar spine. PT/OT consulted. Trial lidoderm patch, tylenol for pain. Could possibly try NSAIDS. (5) Ambulatory dysfunction: Current visit: Yes Status: Acute PT/OT eval (6) History of pelvic fracture: Current visit: No Status: Chronic L-sided pelvic fx is old and asymptomatic at this time. (7) DVT prophylaxis: Current visit: Yes Status: Acute lovenox (8) Discharge planning issues: Current visit: Yes Status: Acute DNR/DNI History of Present Illness Chief Complaint: I lost all my strength Narrative: Ms Rodriguez is an 82 year old female with PMHx of PMR, on chronic prednisone, as well as SIADH with baseline sodium of 128-136, Paroxysmal atrial flutter, not on anticoagulation, as well as osteoporosis, old pelvic fracture, h/o DVT not on anticoagulation, who presented to [facility] ED today complaining of generalized weakness and falls at home. The patient was seen at her PCP's office on 09/15/18 after she sustained two falls the day prior while picking raspberries in her garden. The patient is supposed to use a cane at home - however, she was not at the time. She did not hit her head. Denies dizziness, chest pain, palpitations. Dr Anthony was suspicious that the patient might be getting a PMR flare and increased her prednisone dose to 10 mg daily from 5 mg. However, the patient sustained another fall at home - she thinks 2 days ago, but she is not sure - while trying to get out of a chair. She states she lost the strength in her legs and fell. She denies LOC, but did hit her head and reported a headache with light sensitivity, which has resolved today. She stated that she only spent a few minutes on the floor before being able to get herself up. She states she was disoriented after she fell and she still thinks she is a little bit confused. She has been drinking more than a quart of water per day. She states she was not instructed to have water restriction at home and everyone has been telling her to drink water. In the ED, her workup did reveal a sodium of 123. While she was initially given 500 cc of NS, she is now being admitted to medical surgical floor with a fluid restriction, serial BMP's, and neurochecks, PT evaluation. She lives home alone. Review of Systems Review of Systems 12 systems reviewed. Pertinent positives and negatives are as per HPI. Additionally, the patient denies any fecal/urinary incontinence/constipation/retention. Denies headache/light sensitivity today. Denies neck pain. Does not feel like this is a PMR flare. Denies palpitations. Concerned about having had a tick bite, though she did not see one and did not observe a rash. [facility] Medical History (Updated 09/18/18 @ 17:22 by Yesenia Basilio MD) Atrial flutter (Resolved) Celiac disease (Chronic 06/12/13) Cortical cataract of left eye (Resolved) DVT (deep venous thrombosis) (Chronic) Epiretinal membrane (ERM) of left eye (Chronic) GERD (gastroesophageal reflux disease) History of pelvic fracture (Chronic) Nuclear sclerotic cataract of left eye (Resolved) Osteoarthritis Osteoporosis (Chronic) Paroxysmal atrial fibrillation Polymyalgia rheumatica Polymyalgia rheumatica (Resolved 08/14/14) Surgical History (Updated 08/26/18 @ 12:00 by Matthew Cotton) Cholecystectomy (~01/2007) Colonoscopy - MAC Hemorrhoidal Banding (04/27/17) Status post cataract extraction and insertion of intraocular lens of left eye (Chronic 05/02/18) Status post cataract extraction and insertion of intraocular lens of right eye (Chronic 05/16/18) Social History Smoking/Tobacco Use Status: Never Alcohol Intake: never Drug use: Never Substance use type: does not use current occupation: [employer] Pets and animals: No What type of physical activity do you participate in: none Jennifer/Sikh: Religion Special jennifer needs: No Do you feel safe at home: Yes Do you feel safe in your relationship?: Yes Meds Home Medications Medication Instructions Recorded Confirmed Type metoprolol tartrate 25 mg tablet 25 mg PO BID #180 tab-cap 06/07/18 09/18/18 Rx prednisone 5 mg tablet 10 mg PO DAILY #90 tab 08/30/18 09/18/18 Rx Allergies Allergy/AdvReac Type Severity Reaction Status Date / Time carbamazepine AdvReac Severe Confusion Verified 09/18/18 09:47 and disorientation morphine AdvReac Intermediate made my Verified 09/18/18 09:47 chest feel likie I was in a vice Exam Narrative Exam Narrative: General: Very pleasant frail elderly female, A&Ox3, forgetful, appears tired Neurological: A&OX3, no obvious focal deficits, 5/5 strength throughout while laying in bed Psychiatric: appropriate speech pattern/content/affect Skin: Ecchymosis L forehead; no obvious rashes HEENT: Normocephalic, EOMI, MMM, clear oropharynx, no submandibular or cervical lymphadenopathy, no goiter or JVD Cardiovascular: RRR, no m/r/g Lungs: CTAB Gastrointestinal: abdomen is soft, nontender, nondistended Extremities: 1+ pedal pulses B, 5/5 strenth B, but RUE flexion does produce R lower back pain Results Imaging Additional studies: CT head without contrast: 1. No evidence of acute intracranial abnormality. No evidence of acute infarction, hemorrhage, or mass. 2. Atrophy and microvascular disease. CT Lumbar spine without contrast: No acute fracture. Nonacute findings are stable. There is no acute lumbar fracture. Again seen is degenerative change with disc height loss, vacuum discs, facet degeneration, disc bulges and osteophytes. There is stable anterior listhesis L3-L4 and L5-S1. There are chronic bilateral L5 pars defects. Discs/Spinal canal/Neural foramina: Spinal stenosis at L2-L3 through L4-L5. Sacrum/coccyx: There is nonacute fracture of left sacral ala. Stomach and bowel: Diverticulosis. Vasculature: Atherosclerotic change without aortic aneurysm. Soft tissues: Unremarkable. EKG: HR 64, NSR, no acute ischemia Labs : 09/18/18 09:15 09/18/18 16:00 Laboratory Results - last 24 hr 09/18/18 09/18/18 09/18/18 09:15 09:15 09:15 WBC 8.62 RBC 4.59 Hgb 13.3 Hct 38.6 MCV 84.1 MCH 29.0 MCHC 34.5 RDW 12.4 Plt Count 295 MPV 10.5 Immature Gran % 0.6 Neutrophils % 66.1 Lymphocytes % 19.1 Monocytes % 12.5 Eosinophils % 1.5 Basophils % 0.2 Absolute Neutrophils 5.69 Absolute Lymphocytes 1.65 Absolute Monocytes 1.08 H Absolute Eosinophils 0.13 Absolute Basophils 0.02 ESR 16 PT 9.9 INR 1.0 APTT 23.4 Sodium 123 L* Potassium 4.4 Chloride 87 L Carbon Dioxide 29.8 Anion Gap 6.2 BUN 15 Creatinine 1.04 H Estimated GFR/1.73 m2 50.73 Glucose 105 H Calcium 9.0 Magnesium 1.8 Total Bilirubin 0.4 AST 31 ALT 27 Alkaline Phosphatase 85 C-Reactive Protein 0.17 Total Protein 7.1 Albumin 3.5 TSH 1.78 Free T4 1.05 Urine Color Urine Clarity Urine pH Ur Specific [place] Urine Protein Urine Ketones Urine Blood Urine Nitrite Urine Bilirubin Urine Urobilinogen Ur Leukocyte Esterase Urine RBC Urine WBC Ur Epithelial Cells Urine Crystals Urine Bacteria Urine Casts Urine Mucus Urine Other Ur Culture Indicated? Ur Random Sodium Urine Glucose 09/18/18 09/18/18 10:00 10:00 WBC RBC Hgb Hct MCV MCH MCHC RDW Plt Count MPV Immature Gran % Neutrophils % Lymphocytes % Monocytes % Eosinophils % Basophils % Absolute Neutrophils Absolute Lymphocytes Absolute Monocytes Absolute Eosinophils Absolute Basophils ESR PT INR APTT Sodium Potassium Chloride Carbon Dioxide Anion Gap BUN Creatinine Estimated GFR/1.73 m2 Glucose Calcium Magnesium Total Bilirubin AST ALT Alkaline Phosphatase C-Reactive Protein Total Protein Albumin TSH Free T4 Urine Color Yellow Urine Clarity Clear Urine pH 7.5 Ur Specific [place] 1.010 Urine Protein Negative Urine Ketones Negative Urine Blood Negative Urine Nitrite Negative Urine Bilirubin Negative Urine Urobilinogen 0.2 Ur Leukocyte Esterase Small H Urine RBC Negative Urine WBC 3-5 Ur Epithelial Cells Few Urine Crystals Negative Urine Bacteria Rare Urine Casts Negative Urine Mucus Negative Urine Other Few yeast Ur Culture Indicated? Yes Ur Random Sodium < 5 Urine Glucose Negative Last Vital Signs Temp 36.9 C 09/18/18 16:18 Pulse 71 09/18/18 16:18 Resp 18 09/18/18 16:18 BP 138/77 09/18/18 16:18 Pulse Ox 97 09/18/18 16:18
[2018-09-18 16:45] LABS: Anion Gap 6.6 mmol/L (3-11); BUN 18 mg/dL (7-18); CO2 27.4 mmol/L (21.0-32.0); CREATININE 1.21 mg/dL (0.55-1.02); Calcium 8.9 mg/dL (8.5-10.1); Chloride 92 mmol/L (98-107); Glucose 109 mg/dL (70-100); Potassium 4.6 mmol/L (3.5-5.1); Sodium 126 mmol/L (136-145)
[2018-09-18 17:08] LABS: Osmolality Serum 200 mos/kg (275-295)
[2018-09-18] MEDS: Hydrocortisone SOD SUC. 100 MG VIAL IVP (17:25)
[2018-09-18] MEDS: Metoprolol 25 MG TAB PO (21:11)
[2018-09-18 22:37] LABS: BUN 16 mg/dL (7-18); Calcium 8.9 mg/dL (8.5-10.1); Chloride 93 mmol/L (98-107); Estimated GFR 59.94 (mL/min/1.73m2); Glucose 120 mg/dL (70-100); Potassium 4.5 mmol/L (3.5-5.1); Sodium 128 mmol/L (136-145)
[2018-09-18] MEDS: Hydrocortisone SOD SUC. 100 MG VIAL 50 MG IVP (23:43)
[2018-09-19 03:27] VITALS: BP 146/82; PULSE 86; RESP 16; TEMP 35.6; O2SAT 97
[2018-09-19 07:25] LABS: Abs Immature Grans 0.05 k/cumm (0.0-0.09); Absolute Basophil Count 0.01 k/cumm (0.0-0.2); Absolute Eosinophil Count 0.01 k/cumm (0.0-0.7); Absolute Lymphocyte Count 1.44 k/cumm (1.2-3.4); Absolute Monocyte Count 0.97 k/cumm (0.11-0.7); Absolute Neutrophil Count 8.93 k/cumm (1.2-6.7); Basophils % 0.1; Eosinophils % 0.1; HCT 39.3 % (36.0-46.0); HGB 13.4 g/dL (12.0-15.5); Immature Grans % 0.4; Lymphocytes % 12.6; Mean Corp. HGB Concentration 34.1 g/dL (32.0-36.0); Mean Corpuscular Hemoglobin 28.7 pg (27.0-33.0); Mean Corpuscular Volume 84.2 fL (80-95); Mean Platelet Volume 10.6 fL (8.0-11.0); Monocytes % 8.5; Neutrophils % 78.3; Platelet Count 286 x1000/uL (130-400); RBC 4.67 m/cumm (4.00-5.20); RBC Distribution Width 12.5 % (11.7-14.6); White Blood Cell Count 11.41 k/cumm (4.4-10.8)
[2018-09-19 07:39] VITALS: BP 129/73; PULSE 77; RESP 16; TEMP 36.3; O2SAT 100
[2018-09-19 07:41] LABS: Anion Gap 11.1 mmol/L (3-11); BUN 16 mg/dL (7-18); CO2 25.9 mmol/L (21.0-32.0); CREATININE 0.85 mg/dL (0.55-1.02); Calcium 9.3 mg/dL (8.5-10.1); Chloride 94 mmol/L (98-107); Glucose 124 mg/dL (70-100); Potassium 3.9 mmol/L (3.5-5.1); Sodium 131 mmol/L (136-145)
[2018-09-19] MEDS: Pantoprazole 40 MG TABCR PO (08:44)
[2018-09-19] MEDS: Hydrocortisone SOD SUC. 100 MG VIAL 50 MG IVP ×2 (08:44→19:56)
[2018-09-19] MEDS: Lidocaine 5% Patch 1 PATCH TP (08:45)
[2018-09-19] MEDS: Metoprolol 25 MG TAB PO ×2 (08:45→19:56)
--- NOTE | 2018-09-19 08:51 | INITIAL_ITS ---
- If Service Date Differs Date of service: 09/19/18 Time of Service: 08:52 Care Management Initial Assess REASON FOR HOSPITALIZATION:: Acute on chronic hyponatremia PAST MEDICAL HISTORY/PAST SURGICAL HISTORY:: Atrial flutter (Resolved). Celiac disease (Chronic 06/12/13). Cortical cataract of left eye (Resolved). DVT (deep venous thrombosis) (Chronic). Epiretinal membrane (ERM) of left eye (Chronic). GERD (gastroesophageal reflux disease). History of pelvic fracture (Chronic). Nuclear sclerotic cataract of left eye (Resolved). Osteoarthritis. Osteoporosis (Chronic). Paroxysmal atrial fibrillation. Polymyalgia rheumatica. Polymyalgia rheumatica (Resolved 08/14/14). Surgical Hx:Cholecystectomy (~01/2007). Colonoscopy - MAC. Hemorrhoidal Banding (04/27/17). Status post cataract extraction and insertion of intraocular lens of left eye (Chronic 05/02/18). Status post cataract extraction and insertion of intraocular lens of right eye PREVIOUS FUNCTIONAL STATUS/SOCIAL/FAMILY SUPPORTS:: Colleen, lives alone in [place], [place] she has a two story home but lives on one floor only. She has several family members that provider her support at home. She still drives and is independent with ADL's and meals. CURRENT FUNCTIONAL STATUS:: Colleen is sitting up in the chair her niece and her daughter are present. Radha states she fell at least three times prior to coming in to the ED. She states she fell the first time outside in the [place], then in the home on her hardwood floor. She has a bruise on the left side of her forehead. Radha has difficulty with expression she appears to serach for the right answer during encounter with CM. She reports at one time she is in [place] however she then corrects and reports she is in [place]. Colleen agrees to new home health services when she returns home for PT, OT and nursing. CM is concerend with patient driving, she does have a neuro consult will await report and review concern with provider. ADVANCE DIRECTIVES:: On file agent Mylene Benoit Has patient been provided with information about the portal?: Yes Did the patient sign up for the portal?: No CODE STATUS:: DNR/DNI INSURANCE COVERAGE / FINANCIAL ISSUES:: Medicare, Combined CURRENT HOME/COMMUNITY SERVICES/EQUIPMENT:: None at this time she thinks she may have a FWW prescribed however she has not received it. PRIMARY CARE PHYSICIAN:: POTENTIAL DISCHARGE NEEDS:: Follow up appointment with primary care provider, referral to home health services including nursing, PT, OT and TRANSFER MAN PATIENT/FAMILY EDUCATION NEEDS:: Discharge education, limitations and follow up plan of care including ask me three and self management. ANTICIPATED BARRIERS TO DISCHARGE:: Resolve of current acute status. TRANSPORTATION:: Her sister will provide her transport at time of discharge. PLAN:: Colleen remains inpaitent at this time, she continues to have some confusion. She will be discharged home with new home health services when she is medically ready. She has a PT, OT and neuro consult while she is inpatient. CM will continue to follow and support discharge planning and disposition.
--- NOTE | 2018-09-19 09:01 | OT.INIE ---
Occupational Therapy Notes Inpatient Occupational Therapy Evaluation Date: 09/19/18 Referring Doctor: Yesenia Basilio MD OT Orders: Eval and Treat Precautions: Fall, Standard PATIENT PROFILE/ADMITTING DIAGNOSIS: Pt is an 82 year old female who had fallen on 09/15/18 at a friends home and states that she lost her balance. She then presented to the ER on 09/18 with reports of generalized weakness, hyponatremia, polymyalgia rheumatica acute flair up and post concussive symptoms. Past Medical History: Medical History (Updated 09/18/18 @ 17:22 by Yesenia Basilio MD) Atrial flutter (Resolved) Celiac disease (Chronic 06/12/13) Cortical cataract of left eye (Resolved) DVT (deep venous thrombosis) (Chronic) Epiretinal membrane (ERM) of left eye (Chronic) GERD (gastroesophageal reflux disease) History of pelvic fracture (Chronic) Nuclear sclerotic cataract of left eye (Resolved) Osteoarthritis Osteoporosis (Chronic) Paroxysmal atrial fibrillation Polymyalgia rheumatica Polymyalgia rheumatica (Resolved 08/14/14) Surgical History (Updated 08/26/18 @ 12:00 by Matthew Cotton) Cholecystectomy (~01/2007) Colonoscopy - MAC Hemorrhoidal Banding (04/27/17) Status post cataract extraction and insertion of intraocular lens of left eye (Chronic 05/02/18) Status post cataract extraction and insertion of intraocular lens of right eye (Chronic 05/16/18) Social History/Home Situation: Pt states that she has 1 step to enter her home. She has a full flight of stairs in her home which she states that she doesn't need to go up. She has 3 bathrooms in her home with tub/shower combinations. She has a shower bench and uses this when she wants to. She states that she is still (I) with driving. She does all of her own cooking and grocery shopping. She notes that she has a regular toilet and stands at the sink to brush her teeth. She (I) dresses and baths herself. She states If I feel like standing to get dressed I do, if I feel like sitting I do that. She has reports that she lives alone in her private home. Equipment owned/DME: Pt reports she has a shower bench, grab bars, and has ordered a FWW SUBJECTIVE: Pt was sitting in chair when OT arrived. She was agreeable to OT session and reports that she doesn't need any help that she is totally (I), OBJECTIVE: General Observation: IV (L) UE not connected Mental status: Alert to name, states she doesn't know where she is Pain: no c/o pain ROM: RUE AROM WFL L UE AROM WFL STRENGTH: RUE Shoulder flexion 3-/5, bicep 4/5, tricep 4/5, principal military analyst is symmetrical LUE Shoulder flexion 3-/5, bicep 4/5, tricep 4/5, principal military analyst is symmetrical FUNCTIONAL MOBILITY/ADLS: Transfers with FWW Sit-Stand (I), FWW Stand-sit (I) FWW Bed-Chair (S) Chair-bed (S) BATHING NT, pt denies. DRESSING Sitting in chair Dressing UE (I) personal shirt Dressing LE (I) don and doff (B) socks and shoes, GROOMING Sitting in chair (I) brushing hair, standing at sink with FWW (I) brushing teeth TOILETING NT EATING (I) sitting in chair BALANCE: Static sitting Normal Dynamic Sitting Normal Static Standing Good Dynamic Standing Good SPECIAL TESTS: Daily Activity Limitations Standardized Measure [facility] AM -PAC ?6 clicks? Daily Activity Inpatient Short Form: Raw score: 22 Standardized score: 47.10 CMS score: 25.80% INFORMED CONSENT/EDUCATION: Pt instructed in purpose of OT Consult and plan of care. ASSESSMENT: Patient is a 82-year-old female referred to occupational therapy services with diagnosis of post concussive, polymyalgia rheumatica acute flair up, generalized weakness and hyponatremia. Patient presents with clinical signs and symptoms consistent with dx. Pt was not receptive to OT services and wants to go home as soon as she can. She notes that she does not need assistance with anything. She did not know where she was though and states that she would like to know why she is being stored in the [place]. Then states I do not need help. Pt is able to demonstrate increased (I) in her ADLs but presents with decreased safety awareness and jumps out of her chair when asked about getting up. AMPAC score 22, CMS score 25.80% Patient is assessed as a Low 40716 complexity based on the following: History: See Above Examination: See Above Presentation: Evolving Decision Making: AMPAC score 22, CMS score 25.80% GOALS N/A PLAN OF CARE/TREATMENT PLAN: OT consult only. DISCHARGE RECOMMENDATIONS Home when medically cleared per MD. TREATMENT TIME/MINUTES/CODES 09602, 15 minutes (08:45) Maria Eugenia Neville OTR/[facility]
--- NOTE | 2018-09-19 09:39 | PT.INIE ---
Date of service: 09/19/18 Time of Service: 09:05 PT Notes Inpatient Physical Therapy Evaluation Date:09/19/2018 Referring Doctor: Yesenia Basilio MD PT Orders: PT CONSULT: Eval/treat Precautions: Fall. Standard. Mildly confused. Patient Profile/Admitting Diagnosis: Patient is an 82-year-old female with past medical history paroxysmal atrial fibrillation, polymyalgia rheumatica, osteoarthritis who presented to the ED on 09/18/2018 with chief complaints of generalized weakness and feeling of unsteadiness on her feet for over a week with several falls. Head and spine CT are negative. ECG is negative. Patient is diagnosed with SIADH, postconcussive syndrome, right lumbar radiculopathy, and ambulatory dysfunction. Referral for physical therapy was impairments in strength, balance, and mobility level. PMHX: Medical History (Updated 09/18/18 @ 17:22 by Yesenia Basilio MD) Atrial flutter (Resolved) Celiac disease (Chronic 06/12/13) Cortical cataract of left eye (Resolved) DVT (deep venous thrombosis) (Chronic) Epiretinal membrane (ERM) of left eye (Chronic) GERD (gastroesophageal reflux disease) History of pelvic fracture (Chronic) Nuclear sclerotic cataract of left eye (Resolved) Osteoarthritis Osteoporosis (Chronic) Paroxysmal atrial fibrillation Polymyalgia rheumatica Polymyalgia rheumatica (Resolved 08/14/14) Surgical History (Updated 08/26/18 @ 12:00 by Matthew Cotton) Cholecystectomy (~01/2007) Colonoscopy - MAC Hemorrhoidal Banding (04/27/17) Status post cataract extraction and insertion of intraocular lens of left eye (Chronic 05/02/18) Status post cataract extraction and insertion of intraocular lens of right eye (Chronic 05/16/18) Social History/Home Situation: Patient lives alone in a 2-floor house with 1 step to enter that leads onto a porch that provides access to the dining room. She is independent with all aspects of ADLs with a front-wheeled walker. She does a lot of gardening. Current Functional Limitations: Need for assistive device for all transfer and ambulation task performance Equipment Owned/DME: Patient describes having a 4-wheeled walker at home Subjective: Patient is agreeable to a PT consult. She is hoping that she can go home today. She denies any headache, chest pain, and low back pain. She does report her left leg being sore. she worries about her gardne not being tended to since her admission to the hospital. She reports that she was in conversation with somebody about securing for home for her. Objective: General Observation: IV open in L UE. Lidocaine patch on right lumbar area. Mental Status: Alert and oriented as to person, purpose and time. Unable to determine which town she is at. Pain: 0/10 on low back area ROM: Right Upper Extremity: Shoulder Flexion WFL. Shoulder abduction WFL. Elbow flexion WFL. Wrist flexion WFL. Functional opening and closing of hand WFL. Left Upper Extremity: Shoulder Flexion WFL. Shoulder abduction WFL. Elbow flexion WFL. Wrist flexion WFL. Functional opening and closing of hand WFL. Right Lower Extremity: Hip flexion WFL. Hip abduction WFL. Knee flexion WFL. Ankle dorsiflexion WFL. Ankle plantarflexion WFL. Left Lower Extremity: Hip flexion WFL. Hip abduction WFL. Knee flexion WFL. Ankle dorsiflexion WFL. Ankle plantarflexion WFL. Strength: Right Upper Extremity: Shoulder flexors 5/5. Shoulder abductors 5/5. Elbow flexors 5/5. Elbow extensors 5/5. Ore Roaster strong. Left Upper Extremity: Shoulder flexors 5/5. Shoulder abductors 5/5. Elbow flexors 5/5. Elbow extensors 5/5. Ore Roaster strong. Right Lower Extremity: Hip flexors 4-/5. Hip abductors 4-/5. Knee flexors 4-/5. Knee extensors 4-/5. Ankle dorsiflexors 4-/5. Ankle plantarflexors 4-/5. Left Lower Extremity:Hip flexors 3+/5. Hip abductors 4-/5. Knee flexors 4-/5. Knee extensors 4-/5. Ankle dorsiflexors 4-/5. Ankle plantarflexors 4-/5. Sensation: Intact as to pain and pressure on bilateral lower extremities. Bed Mobility/Transfers: Rolling I Supine to sit I Sit to supine I Sit to stand S Stand to sit S Bed to chair SBA Chair to bed SBA Gait: Patient was able to tolerate level surface ambulation of 120 feet using FWW with SBA, minimal verbal cues given direction and walker management. No episode of LOB seen. Gait pattern unremarkable. Balance: Static Sitting: Normal Dynamic Sitting: Normal Static Standing: Good Dynamic Standing: Fair Special Tests: Mobility Limitations Standardized Measure [facility] AM-PAC 6 clicks Basic Mobility Inpatient Short Form: Raw Score: 20 CMS Score: 36% deficit 30?second chair rice score of 7. Signifying at low risk for falls and good lower extremity strength. Informed Consent/Education: Patient instructed in purpose of PT consult and plan of care. Assessment: Patient presents with clinical signs and symptoms consistent with current/admitting diagnoses that have resulted to mobility limitations, gait instability, generalized weakness, and impairment of motor control as demonstrated by the following impairment level findings: 1. Decreased strength to B LE hip/knee major muscle groups 2. Impaired standing balance 3. Impaired activity tolerance Impairments are contributing to the following functional limitations: 1. Inability to safely ambulate without assistive device and physical assistance 2. Increase completion time for mobility ADL performance 3. Increased fall risk4. Inability to negotiate steps alone safely Patient is assessed as a 28029 moderate complexity based on the following: History: 82-year-old female with SIADH, postconcussive syndrome, right lumbar radiculopath, and ambulatory dysfunction Examination: Demonstrable impairment in strength, balance, and range of motion with underlying impairments and functional limitations as documented above Presentation:Evolving Decision Makin moderate complexity Goals: Goals X1 week 1. Supine-Sit independent 2. Sit-Supine independent 3. Sit-Stand independent 4. Stand-Sit independent 5. Bed-Chair independent 6. Chair-Bed independent 7. Independent gait on level surface with use of least restrictive device for at least 100 feet without report of pain nor dyspnea 8. Independent stair negotiation while holding onto bilateral rails for at least 5 steps without report of pain nor dyspnea 9. Independent with home exercise program 10. Good static and dynamic standing balance/tolerance Plan of Care/Treatment Plan: 1-2x/day, 7 days/week x 1 week. Plan of care has been reviewed with the BUILDINGS PAINTER providing the service under Physical Therapy direction. Initiate Physical Therapy intervention for strengthening, bed mobility, transfers, gait, stairs, balance training, use of assistive device. DISCHARGE RECOMMENDATIONS: Patient will benefit from home health PT services in order to progress mobility level using least restrictive assistive ambulatory device/using no device, assess home safety, identify additional equipment needs, and establish a functional maintenance program that will increase ability of patient to remain at home. TREATMENT CODE/TIME: 25422 x 31 minutes beginning at 9:05 AM. Thank you very much for this referral. Denise Ramirez PT, DPT, CLT [facility]
[2018-09-19] MEDS: Enoxaparin 40 MG/0.4 ML SYR SC (11:12)
[2018-09-19] MEDS: Doxycycline Hyclate 100 MG CAP PO ×2 (11:13→19:56)
[2018-09-19 11:24] VITALS: BP 151/71; PULSE 64; RESP 16; TEMP 36.8; O2SAT 98
[2018-09-19 12:25] LABS: Vitamin D 25 Total 37.1 ng/ml (30-100)
--- NOTE | 2018-09-19 12:36 | W.PM.PROGNOT ---
Date of Service Date of service: 09/19/18 Time of Service: 12:37 Assessment and Plan (1) Encephalopathy acute: Current visit: Yes Status: Acute Likely due to hyponatremia, but also possibly due to post-concussive syndrome. Neuro lyme is less likely. Obtain neurology consult. Consider MRI. I doubt CVA, however - there are no focal findings I can appreciate. Continue to monitor. 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 Sodium at/near baseline with fluid restriction with perfect rate of improvement. Still encephalopathic, however, and that is worrisome. May require an MRI. Neuro consulted. (3) PMR (polymyalgia rheumatica): Current visit: No Status: Chronic Not in an acute flare. Start to taper stress dose steroids (4) Post concussive syndrome: Current visit: Yes Status: Acute Monitor neuro checks. (5) Right lumbar radiculopathy: Current visit: No Status: Chronic This is old, per chart review, but clinically worse on presentation. For MRI Lumbar spine today PT/OT consulted. Continue lidoderm patch, tylenol (6) Ambulatory dysfunction: Current visit: Yes Status: Acute PT/OT eval (7) History of pelvic fracture: Current visit: No Status: Chronic L-sided pelvic fx is old and asymptomatic at this time. (8) DVT prophylaxis: Current visit: Yes Status: Acute lovenox (9) Discharge planning issues: Current visit: Yes Status: Acute DNR/DNI Not ready for discharge yet. Mental status is a concern. May also require rehab due to falls Subjective Interval history since last seen: Ms Rodriguez states she is doing alright. She has a hard time remembering that she is in the hospital, stating that she knew she was somewhere in [facility], but it could have been a longterm. She states she recalls meeting me yesterday and going to the ED. She denies Headache, light sensitivity, dizziness, chest pain, shortness of breath, nausea. She is not reporting the R lower back pain today - states the lidoderm patch is helping. Exam Narrative Exam Narrative: General: Very pleasant frail elderly female, A&Ox2-3, forgetful, looks more alert Neurological: A&OX3, no obvious focal deficits, 5/5 strength throughout Skin: Ecchymosis L forehead (green); no obvious rashes HEENT: EOMI, MMM Cardiovascular: RRR, no m/r/g Lungs: CTAB Gastrointestinal: abdomen is soft, nontender, nondistended Extremities: 1+ pedal pulses B, no c/c Objective Objective Clinical Data: Abnormal lab results 09/18/18 09/18/18 09/18/18 Range/Units 10:00 16:00 22:09 WBC (4.4-10.8) k/cumm Absolute Neutrophils (1.2-6.7) k/cumm Absolute Monocytes (0.11-0.7) k/cumm Sodium 126 L 128 L (136-145) mmol/L Chloride 92 L 93 L (98-107) mmol/L Anion Gap (3-11) mmol/L Creatinine 1.21 H (0.55-1.02) mg/dL Glucose 109 H 120 H (70-100) mg/dL Serum Osmolality 200 L (275-295) mOsm/kg 09/19/18 09/19/18 Range/Units 07:04 07:04 WBC 11.41 H D (4.4-10.8) k/cumm Absolute Neutrophils 8.93 H (1.2-6.7) k/cumm Absolute Monocytes 0.97 H (0.11-0.7) k/cumm Sodium 131 L (136-145) mmol/L Chloride 94 L (98-107) mmol/L Anion Gap 11.1 H (3-11) mmol/L Creatinine (0.55-1.02) mg/dL Glucose 124 H (70-100) mg/dL Serum Osmolality (275-295) mOsm/kg Vital Signs Temperature 36.8 C 09/19/18 11:24 Temperature Source Tympanic 09/19/18 11:24 Pulse 64 09/19/18 11:24 Pulse Rhythm Regular 09/19/18 08:15 Pulse 65 09/18/18 11:50 Respiratory Rate 16 09/19/18 11:24 Respiratory Effort 09/19/18 08:15 Respiratory Depth Normal 09/19/18 08:15 Respiratory Pattern Normal 09/19/18 08:15 Blood Pressure 151/71 H 09/19/18 11:24 Blood Pressure Mean 96 09/18/18 11:01 Blood Pressure Position Supine 09/18/18 09:00 Pulse Oximetry 98 09/19/18 11:24 Oxygen Delivery Method Room Air 09/19/18 11:24 Oxygen Flow Rate 0 09/19/18 11:24 Pain Level 0 09/19/18 07:39 Comment 09/18/18 23:15 Intake & Output 09/18/18 09/19/18 09/19/18 23:59 11:59 23:59 Intake Total 280 / 873.334 Output Total 1000 / 1000 900 / 900 Balance -720 / -126.666 -900 / -900 Weight 55.4 kg 54.9 kg Intake: Oral 280 / 280 Output: Urine 1000 / 1000 900 / 900 Other: Urine Color Yellow Yellow Urine Appearance Clear Clear Urine Odor Normal Normal Comment missed hat Stool Size Moderate Stool Characteristics Soft Formed Brown Voiding Methods Toilet Toilet Laboratory Results WBC 11.41 k/cumm (4.4-10.8) H D 09/19/18 07:04 RBC 4.67 m/cumm (4.00-5.20) 09/19/18 07:04 Hgb 13.4 g/dL (12.0-15.5) 09/19/18 07:04 Hct 39.3 % (36.0-46.0) 09/19/18 07:04 MCV 84.2 fL (80-95) 09/19/18 07:04 MCH 28.7 pg (27.0-33.0) 09/19/18 07:04 MCHC 34.1 g/dL (32.0-36.0) 09/19/18 07:04 RDW 12.5 % (11.7-14.6) 09/19/18 07:04 Plt Count 286 x1000/uL (130-400) 09/19/18 07:04 MPV 10.6 fL (8.0-11.0) 09/19/18 07:04 Immature Gran % 0.4 09/19/18 07:04 78.3 09/19/18 07:04 12.6 09/19/18 07:04 8.5 09/19/18 07:04 0.1 09/19/18 07:04 0.1 09/19/18 07:04 Absolute Neutrophils 8.93 k/cumm (1.2-6.7) H 09/19/18 07:04 Absolute Lymphocytes 1.44 k/cumm (1.2-3.4) 09/19/18 07:04 Absolute Monocytes 0.97 k/cumm (0.11-0.7) H 09/19/18 07:04 Absolute Eosinophils 0.01 k/cumm (0.0-0.7) 09/19/18 07:04 Absolute Basophils 0.01 k/cumm (0.0-0.2) 09/19/18 07:04 ESR 16 mm/hr (0-30) 09/18/18 09:15 PT 9.9 sec (9.3-11.0) 09/18/18 09:15 INR 1.0 (0.9-1.1) 09/18/18 09:15 APTT 23.4 sec (21.0-31.4) 09/18/18 09:15 Sodium 131 mmol/L (136-145) L 09/19/18 07:04 Potassium 3.9 mmol/L (3.5-5.1) 09/19/18 07:04 Chloride 94 mmol/L (98-107) L 09/19/18 07:04 Carbon Dioxide 25.9 mmol/L (21.0-32.0) 09/19/18 07:04 11.1 mmol/L (3-11) H 09/19/18 07:04 BUN 16 mg/dL (7-18) 09/19/18 07:04 0.85 mg/dL (0.55-1.02) 09/19/18 07:04 >= 60.00 (mL/min/1.73m2) 09/19/18 07:04 Glucose 124 mg/dL (70-100) H 09/19/18 07:04 200 mOsm/kg (275-295) L 09/18/18 10:00 Calcium 9.3 mg/dL (8.5-10.1) 09/19/18 07:04 Magnesium 2.0 mg/dL (1.8-2.4) 09/19/18 07:04 0.4 mg/dL (0.2-1.0) 09/18/18 09:15 AST 31 U/L (15-37) 09/18/18 09:15 ALT 27 U/L (12-78) 09/18/18 09:15 85 U/L (46-116) 09/18/18 09:15 0.17 mg/dL (0.0-0.3) 09/18/18 09:15 7.1 g/dL (6.4-8.2) 09/18/18 09:15 3.5 g/dL (3.4-5.0) 09/18/18 09:15 25-OH Vitamin D Total 37.1 ng/ml (30-100) 09/19/18 07:04 TSH 1.78 uIU/mL (0.36-3.74) 09/18/18 09:15 Free T4 1.05 ng/dL (0.76-1.46) 09/18/18 09:15 Yellow (Yellow) 09/18/18 10:00 Clear (Clear) 09/18/18 10:00 7.5 (5-8) 09/18/18 10:00 Ur Specific [place] 1.010 (1.005-1.025) 09/18/18 10:00 Negative mg/dL (Negative) 09/18/18 10:00 Negative mg/dL (Negative) 09/18/18 10:00 Negative (Negative) 09/18/18 10:00 Negative (Negative) 09/18/18 10:00 Negative (Negative) 09/18/18 10:00 0.2 EU/dL (Up TO 0.2) 09/18/18 10:00 Ur Leukocyte Esterase Small (Negative) H 09/18/18 10:00 Negative (0-2) 09/18/18 10:00 3-5 HPF (0-5) 09/18/18 10:00 Ur Epithelial Cells Few HPF (Negative) 09/18/18 10:00 Negative HPF (Negative) 09/18/18 10:00 Rare HPF (Negative) 09/18/18 10:00 Negative LPF (Negative) 09/18/18 10:00 Negative (Negative) 09/18/18 10:00 Few yeast (Negative) 09/18/18 10:00 Ur Culture Indicated? Yes 09/18/18 10:00 Ur Random Sodium < 5 mmol/L 09/18/18 10:00 Negative mg/dL (Negative) 09/18/18 10:00
--- NOTE | 2018-09-19 13:21 | DI.MRI_ITS ---
SYMPTOMS/DIAGNOSIS: LOWER BACK PAIN, BILATERAL LOWER EXTREMITY WEAKNESS MRI OF THE LUMBAR SPINE: Routine noncontrast examination was performed. There is a moderately severe left convex scoliotic curvature of the thoracolumbar spine. The conus medullaris has a normal appearance and location. There is L5 spondylolysis and grade 1 spondylolisthesis of L5 on S1. At L5-S1, there is disc desiccation. No significant central spinal canal stenosis is seen. There is moderate right and severe left neural foraminal stenosis. At L4-L5, there is disc desiccation. No focal disc herniation or significant central spinal canal stenosis is seen. There is mild right and moderately severe left neural foraminal stenosis present. At L3-L4, there is disc desiccation and a diffuse disc bulge. Moderate narrowing of the central spinal canal is noted. There are hypertrophic changes of the facets. Marked bilateral neural foraminal stenosis is present. At L2-L3, there is disc desiccation. There are degenerative changes of the facets and a mild diffuse disc bulge. No significant central spinal canal stenosis is seen. Severe right and moderately severe left neural foraminal stenosis is present. At L1-L2, there is no focal disc herniation or central spinal canal stenosis. There is moderately severe right and moderate left neural foraminal stenosis. Marrow signal is within normal limits apart from the degenerative endplate signal changes. IMPRESSION: 1. Multilevel degenerative change in the lumbar spine. 2. Multilevel bilateral neural foraminal stenosis and central spinal canal stenosis as described above. 3. Left convex scoliotic curvature of the thoracolumbar spine. 4. L5 spondylolysis and grade 1 spondylolisthesis of L5 on S1.
[2018-09-19 14:30] LABS: Anion Gap 9.5 mmol/L (3-11); BUN 14 mg/dL (7-18); CO2 26.5 mmol/L (21.0-32.0); CREATININE 0.84 mg/dL (0.55-1.02); Calcium 9.1 mg/dL (8.5-10.1); Chloride 91 mmol/L (98-107); Glucose 130 mg/dL (70-100); Potassium 4.1 mmol/L (3.5-5.1); Sodium 127 mmol/L (136-145)
--- NOTE | 2018-09-19 15:27 | W.NEUROCONSU ---
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 Rodriguez is an 82 year-old, right-handed woman who was admitted with a one week history of generalized weakness and falls found to have acute on chronic hyponatremia. Since admission, there is some question of altered mental status/?encephalopathy? It's not clear what her baseline is. She had some confusion in general conversation but she recognized her errors independently and would correct them. She was not oriented to place and had difficulty with delayed recall. She was awake and alert. And her sodium was still low. She is not aphasic and I did not see any focal neurological deficits. It's not clear exactly what is going on. This could be her baseline. She could be mildly encephalopathic from ongoing hyponatremia. There is a question of concussion which also remains on the differential. Consider checking a B12 level. If she does not improve with time (concussion)/correction of sodium levels, she should follow-up in the neurology clinic. Please call with any further questions or concerns. History of Present Illness Chief Complaint: altered mental status Narrative: Handedness: LEFT. HPI: Ms. Rodriguez is an 82 year-old woman with a PMH of PMR, paroxysmal afb with previous GI bleeding on warfarin, and osteoporosis. She was admitted yesterday 09/18/18 with a 1 week history of generalized weakness, gait imbalance, and falls. There is some confusion about timeline of events, but last reported fall was on 09/15/18. She presented with a bruise over her left eyebrow. We don't know the details of the fall or whether she has LOC. Nursing has noted waxing/waning AMS. There is no family at bedside to help determine normal mental status. I had previously seen her in January 2018 for headaches. Her headaches were gone in Jan when I saw her which she attributed to steroid use. However, review of the notes indicates her headaches returned. She subsequently had temporarily relief with loratidine (???). And was then treated with topiramate and lidocaine only ONB. She reports no headaches in the last 1 month prior to admission. I reminded her about the left frontal bruise and she denies associated headache, but does note generalized aches and pains. She was found to have hyponatremia of 123. She has chronic low sodium in the 130s. Her sodium has slowly risen over the last 24 hours to 131, but is now back to 127. She is on fluid restriction but had a filled 600cc water bottle in front of her at the time of my exam. Consults Requesting physician: Yesenia Basilio Review of Systems Review of Systems All systems reviewed & are unremarkable except as noted in HPI and below PFSH Medical History Atrial flutter (Resolved) Celiac disease (Chronic 06/12/13) Cortical cataract of left eye (Resolved) DVT (deep venous thrombosis) (Chronic) Epiretinal membrane (ERM) of left eye (Chronic) GERD (gastroesophageal reflux disease) History of pelvic fracture (Chronic) Nuclear sclerotic cataract of left eye (Resolved) Osteoarthritis Osteoporosis (Chronic) Paroxysmal atrial fibrillation Polymyalgia rheumatica Polymyalgia rheumatica (Resolved 08/14/14) Surgical History Cholecystectomy (~01/2007) Colonoscopy - MAC Hemorrhoidal Banding (04/27/17) Status post cataract extraction and insertion of intraocular lens of left eye (Chronic 05/02/18) Status post cataract extraction and insertion of intraocular lens of right eye (Chronic 05/16/18) Family History Mother No problems noted. Father Neoplasm Sister Neoplasm Social History Smoking/Tobacco Use Status: Never Alcohol Intake: never Drug use: Never Substance use type: does not use current occupation: [employer]aning [employer] Pets and animals: No What type of physical activity do you participate in: none Jennifer/Worship: Anabaptism Special jennifer needs: No Do you feel safe at home: Yes Do you feel safe in your relationship?: Yes Visit Medication and Allergies Active Medications Generic Name Dose Route Start Last Admin Trade Name Freq PRN Reason Stop Dose Admin Acetaminophen 0 mg 09/18/18 10:52 Tylenol PO Q4H PRN PRN Al Hydrox/Mg Hydrox/Simethicone 30 ml 09/18/18 10:52 Mylanta Liquid PO Q2H PRN PRN Dimethicone/Zinc Oxide 0 gm 09/18/18 10:46 Katy Protect Cream TP PRN PRN Docusate Sodium 100 mg 09/18/18 10:52 Colace PO TID PRN PRN Doxycycline Hyclate 100 mg 09/19/18 20:00 Vibramycin PO BID SHANEKA Enoxaparin Sodium 40 mg 09/18/18 12:00 09/19/18 11:12 Lovenox SC 40 mg Q24H SHANEKA Administration Hydrocortisone 50 mg 09/19/18 20:00 Solu-Cortef IVP Q12H SHANEKA Lidocaine 1 patch 09/19/18 08:30 09/19/18 08:45 Lidoderm 5% Patch TP 1 patch DAILY SHANEKA Administration Magnesium Hydroxide 30 ml 09/18/18 10:52 Milk Of Magnesia PO DAILY PRN PRN Metoprolol Tartrate 25 mg 09/18/18 20:00 09/19/18 08:45 Lopressor PO 25 mg BID SHANEKA Administration Pantoprazole Sodium 40 mg 09/19/18 07:30 09/19/18 08:44 Protonix PO 40 mg DAILY@0730 SHANEKA Administration Sodium Chloride 0 ml 09/18/18 08:59 09/18/18 23:56 Saline Flush 10 Ml Syringe IVP 10 ml PRN PRN Administration Allergies carbamazepine Adverse Reaction (Severe, Verified 09/18/18 09:47) Confusion and disorientation morphine Adverse Reaction (Intermediate, Verified 09/18/18 09:47) made my chest feel likie I was in a vice Exam Narrative Exam Narrative: Physical Exam: Gen: Patient of apparent stated age, NAD Head and face: no facial or cranial abnormalities Neck: Supple, no meningismus, no occipital tenderness CV: + S1, S2, RRR, no murmur Resp: CTA B/L Abd: soft, nontender, nondistended Ext: No edema. No clubbing or cyanosis. No bony deformity. Neuro Exam: Language: fluency, naming, repetition, and comprehension intact; Mental Status: AAOx self and time; confused on location, current events intact, fund of knowledge generally intact; some intermittent confusion but usually self corrects; see below; Speech: no dysarthria Cranial nerves: Funduscopy: not performed CN II: visual taylor intact CN III, IV, : extraocular movements intact, no nystagmus, pupils symmetric and reactive to light CN V: face sensation intact to LT and PP CN VII: no facial asymmetry noted CN VIII: hearing intact bilaterally CN IX, X: palate rises symmetrically CN XI: trapezius/SCM 5/5 bilaterally CN XII: protrudes tongue symmetrically Sensory: intact to LT, PP, vibration, and joint position in all extremities Motor: bulk and tone intact. No cogwheel rigidity or bradykinesia. Fine motor movements intact bilaterally. No pronator drift. Strength 5/5 throughout including the deltoids, biceps, triceps, wrist extensors, hip flexors, knee flexors, knee extensors, ankle flexors, and ankle extensors. Intermittent left UE postural tremor. Mild. Reflexes: 2+ at the biceps, triceps, and brachioradialis; reduced at the patella and achilles tendons bilaterally; toes down going bilaterally; Coordination: FTN and HTS intact bilaterally Gait: deferred MMSE 1.Orientation a.Place (Country, State, City, Building, Floor) 04/26 b.Time (Year, Season, Month, Date, day of the week) 06/26 2.Immediate Recall (3 objects) 04/24 3.Attention (Serial 7s or spell world backwards) 06/26 4.Delayed Recall (3 objects) 02/24 5.Language a.Naming (watch and pencil) 03/26 b.Repetition 02/22 c.Comprehension (3-step command) 04/24 d.Reading (Close your eyes) 02/22 e.Writing (sentence) 02/22 6.Visuospatial/Executive (copy drawing) 02/22 TOTAL: Results Last Vital Signs Temp 36.8 C 09/19/18 11:24 Pulse 64 09/19/18 11:24 Resp 16 09/19/18 11:24 BP 151/71 H 09/19/18 11:24 Pulse Ox 98 09/19/18 11:24 Labs : 09/19/18 07:04 09/19/18 14:08 Laboratory Results - last 24 hr 09/18/18 09/18/18 09/18/18 10:00 16:00 22:09 WBC RBC Hgb Hct MCV MCH MCHC RDW Plt Count MPV Immature Gran % Neutrophils % Lymphocytes % Monocytes % Eosinophils % Basophils % Absolute Neutrophils Absolute Lymphocytes Absolute Monocytes Absolute Eosinophils Absolute Basophils Sodium 126 L 128 L Potassium 4.6 4.5 Chloride 92 L 93 L Carbon Dioxide 27.4 27.0 Anion Gap 6.6 8.0 BUN 18 16 Creatinine 1.21 H 0.90 Estimated GFR/1.73 m2 42.60 59.94 Glucose 109 H 120 H Serum Osmolality 200 L Calcium 8.9 8.9 Magnesium 25-OH Vitamin D Total 09/19/18 09/19/18 09/19/18 07:04 07:04 07:04 WBC 11.41 H D RBC 4.67 Hgb 13.4 Hct 39.3 MCV 84.2 MCH 28.7 MCHC 34.1 RDW 12.5 Plt Count 286 MPV 10.6 Immature Gran % 0.4 Neutrophils % 78.3 Lymphocytes % 12.6 Monocytes % 8.5 Eosinophils % 0.1 Basophils % 0.1 Absolute Neutrophils 8.93 H Absolute Lymphocytes 1.44 Absolute Monocytes 0.97 H Absolute Eosinophils 0.01 Absolute Basophils 0.01 Sodium 131 L Potassium 3.9 Chloride 94 L Carbon Dioxide 25.9 Anion Gap 11.1 H BUN 16 Creatinine 0.85 Estimated GFR/1.73 m2 >= 60.00 Glucose 124 H Serum Osmolality Calcium 9.3 Magnesium 2.0 25-OH Vitamin D Total 37.1 09/19/18 14:08 WBC RBC Hgb Hct MCV MCH MCHC RDW Plt Count MPV Immature Gran % Neutrophils % Lymphocytes % Monocytes % Eosinophils % Basophils % Absolute Neutrophils Absolute Lymphocytes Absolute Monocytes Absolute Eosinophils Absolute Basophils Sodium 127 L Potassium 4.1 Chloride 91 L Carbon Dioxide 26.5 Anion Gap 9.5 BUN 14 Creatinine 0.84 Estimated GFR/1.73 m2 >= 60.00 Glucose 130 H Serum Osmolality Calcium 9.1 Magnesium 25-OH Vitamin D Total
--- NOTE | 2018-09-19 15:28 | PT.INTREAT ---
Date of service: 09/19/18 Time of Service: 15:29 PT Notes Inpatient Physical Therapy Treatment Note [facility] Date: 09/19/18 PRECAUTIONS: Fall SUBJECTIVE: Radha states that she just returned from an MRI. She states she is feeling good this afternoon and is hopeful that she will get to go home soon. OBJECTIVE: PAIN: No c/o pain BED MOBILITY/TRANSFERS Supine-sit: I with HOB flat Sit-supine: I with HOB flat Sit-stand: S Stand-sit: S Bed-Chair: S GAIT Assistive Device: FWW Weight bearing: Full Assist: SBA Distance: Approx 300' THEREX: Patient completed a LE strengthening program, in both seated and standing positions, as per flow sheet. STAIRS: Up/down 3x4 and 2x6 using B rails and a step-over pattern with supervision. ASSESSMENT: Patient tolerated session well without complaint. She was able to tolerate a progression in gait distance with FWW support and supervision. PLAN: Continue with PT's POC TREATMENT CODE/TIME: 30 minutes; 13131, [id number]
[2018-09-19 16:10] VITALS: BP 134/79; PULSE 78; RESP 18; TEMP 36.6; O2SAT 98
[2018-09-19 19:54] VITALS: BP 130/74; PULSE 79; RESP 16; TEMP 36; O2SAT 99
[2018-09-19] MEDS: Normal Saline Flush 10 ML SYR IVP (19:56)
[2018-09-19 22:31] LABS: Anion Gap 8.4 mmol/L (3-11); BUN 20 mg/dL (7-18); CO2 27.6 mmol/L (21.0-32.0); CREATININE 1.01 mg/dL (0.55-1.02); Calcium 9.3 mg/dL (8.5-10.1); Chloride 94 mmol/L (98-107); Estimated GFR 52.48 (mL/min/1.73m2); Glucose 126 mg/dL (70-100); Potassium 4.2 mmol/L (3.5-5.1); Sodium 130 mmol/L (136-145)
[2018-09-19 23:08] VITALS: BP 147/75; PULSE 82; RESP 16; TEMP 35.6; O2SAT 97
[2018-09-20 03:37] VITALS: BP 163/98; PULSE 70; RESP 14; TEMP 35.8; O2SAT 98
[2018-09-20 07:34] LABS: Abs Immature Grans 0.03 k/cumm (0.0-0.09); Absolute Basophil Count 0.01 k/cumm (0.0-0.2); Absolute Lymphocyte Count 3.15 k/cumm (1.2-3.4); Absolute Monocyte Count 1.22 k/cumm (0.11-0.7); Basophils % 0.1; Eosinophils % 0.9; HCT 39.3 % (36.0-46.0); HGB 13.4 g/dL (12.0-15.5); Immature Grans % 0.3; Lymphocytes % 28.7; Mean Corp. HGB Concentration 34.1 g/dL (32.0-36.0); Mean Corpuscular Hemoglobin 28.9 pg (27.0-33.0); Mean Corpuscular Volume 84.7 fL (80-95); Monocytes % 11.1; Neutrophils % 58.9; Platelet Count 308 x1000/uL (130-400); RBC 4.64 m/cumm (4.00-5.20); RBC Distribution Width 12.5 % (11.7-14.6); White Blood Cell Count 10.99 k/cumm (4.4-10.8)
[2018-09-20 07:35] LABS: Absolute Neutrophil Count 6.47 k/cumm (1.2-6.7)
[2018-09-20 07:41] LABS: Anion Gap 9.8 mmol/L (3-11); BUN 16 mg/dL (7-18); CO2 27.2 mmol/L (21.0-32.0); CREATININE 0.84 mg/dL (0.55-1.02); Calcium 8.9 mg/dL (8.5-10.1); Chloride 94 mmol/L (98-107); Glucose 100 mg/dL (70-100); Potassium 3.7 mmol/L (3.5-5.1); Sodium 131 mmol/L (136-145)
[2018-09-20] MEDS: Pantoprazole 40 MG TABCR PO (08:01)
[2018-09-20] MEDS: Doxycycline Hyclate 100 MG CAP PO ×2 (08:01→20:32)
[2018-09-20] MEDS: Metoprolol 25 MG TAB PO ×2 (08:02→20:32)
[2018-09-20] MEDS: Lidocaine 5% Patch 1 PATCH TP (08:02)
[2018-09-20] MEDS: Normal Saline Flush 10 ML SYR IVP ×2 (08:03→20:32)
[2018-09-20] MEDS: Hydrocortisone SOD SUC. 100 MG VIAL 50 MG IVP ×2 (08:03→20:31)
[2018-09-20 08:07] VITALS: BP 161/77; PULSE 69; RESP 16; TEMP 36.1; O2SAT 99
[2018-09-20 10:35] LABS: Lyme Ab w Rflx to Lyme Confirm Negative
[2018-09-20 11:26] VITALS: BP 114/68; PULSE 69; RESP 16; TEMP 36.3; O2SAT 95
--- NOTE | 2018-09-20 11:41 | PT.INTREAT ---
Date of service: 09/20/18 Time of Service: 11:41 PT Notes Inpatient Physical Therapy Treatment Note [facility] Date: 09/20/18 PRECAUTIONS: Fall SUBJECTIVE: Radha states that she would like to go home and that she is feeling much better and back to baseline. OBJECTIVE: PAIN: No c/o pain BED MOBILITY/TRANSFERS Sit-stand: I Stand-sit: I GAIT Assistive Device: 4WW Weight bearing: Full Assist: SBA in a.m.; S in p.m. Distance: Approx 400' in both a.m. and p.m. THEREX: Patient completed a LE strengthening program, in a standing position, as per flow sheet, in both a.m. and p.m. She also completed functional [id number] exercises. 4WW TRAINING: Educated patient in appropriate and safe use of 4WW including brakes, locks, and seat. Patient demonstrates good understanding and safety. ASSESSMENT: Patient tolerated a progression in gait distance with FWW support and supervision, demonstrating safe use and mechanics of 4WW. She is demonstrating independence at this time with transfers and bed mobility. PLAN: Continue with PT's POC TREATMENT CODE/TIME: Session 1: 15 minutes; [id number] Session 2: 25 minutes; 04306, [id number]
[2018-09-20 12:54] LABS: Anion Gap 9.4 mmol/L (3-11); BUN 17 mg/dL (7-18); CO2 27.6 mmol/L (21.0-32.0); CREATININE 0.84 mg/dL (0.55-1.02); Calcium 9.1 mg/dL (8.5-10.1); Chloride 96 mmol/L (98-107); Glucose 121 mg/dL (70-100); Potassium 3.5 mmol/L (3.5-5.1); Sodium 133 mmol/L (136-145)
[2018-09-20] MEDS: Enoxaparin 40 MG/0.4 ML SYR SC (13:36)
--- NOTE | 2018-09-20 14:34 | PHARADMIT ---
Admission Pharmacy Clinical Review ACUTE on CHRONIC HYPONATREMIA/SIADH Code Status DNR/DNI Current Weight Wgt-53.7 kg Renally Cleared and Narrow Therapeutic Index Meds CrCl~38.5 mL/min Meds-OK QTc Value / Action Taken QTc-398 na BP Control, Fever BP-114/68 Tmax- 36.6C Electrolytes reviewed Na-133 (was 123) K+3.5 Mag-2.0 DVT Prophylaxis Lovenox 40mg Opiate Usage / Scheduled Bowel Regimen Ordered No Yes Plt/SCr for Heparin / Enoxaparin Plts-308 SCr-0.84 INR for Warfarin inr-1.0 H/H stable, WBC/Bands H&H- 13.4/39.3 WBC- 10.99 Antibiotic appropriateness Doxycycline, Cultures and Sensitivities Urine-Gram Neg Roni Surgical ABX d/c within 24 hr na DM control / Insulin Dosing BG-121 Heart Failure (Check EF%) (JOSE J's, B-Block, Diuretics) Lopressor IV to PO Switch No Home Meds Reviewed Yes Home Meds Not Ordered Naproxen, Prednisone, Comments r-CRP-0.17
--- NOTE | 2018-09-20 14:39 | PGE_ITS ---
Date of Service Date of service: 09/20/18 Time of Service: 14:39 Assessment and Plan (1) Encephalopathy acute: Current visit: Yes Status: Acute Likely due to hyponatremia and possibly post-concussive syndrome. Neuro lyme unlikely. Discussed case with Dr Hope, whose testing indicates that the patient may also be developing dementia. Ultimately, her mental status will be best assessed once her sodium is stable. I have initiated the conversation with patient's family about her needing more supervision at home and not driving. 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 Sodium improved with enforcement of fluid restriction (evidently, yesterday the patient had more water than she was supposed to). Encephalopathy is improving. (3) PMR (polymyalgia rheumatica): Current visit: No Status: Chronic Not in an acute flare. Continue to taper stress dose steroids (4) Post concussive syndrome: Current visit: Yes Status: Acute Monitor neuro checks. (5) Right lumbar radiculopathy: Current visit: No Status: Chronic This is old, per chart review, but clinically worse. She has multilevel neural foraminal stenoses and central canal stenosis. This will need to be followed up as outpatient. For now, pain seems to be controlled. Continue lidoderm patch, tylenol, PT. (6) Ambulatory dysfunction: Current visit: Yes Status: Acute PT/OT (7) History of pelvic fracture: Current visit: No Status: Chronic L-sided pelvic fx is old and asymptomatic at this time. (8) DVT prophylaxis: Current visit: Yes Status: Acute lovenox (9) Discharge planning issues: Current visit: Yes Status: Acute DNR/DNI Possible discharge home tomorrow with increased support/home health/possible 24 hour supervision if mental status returns to baseline. Subjective Interval history since last seen: Patient seen while she was being visited by her sister today. The sister stated that she received a phone call this morning from [facility] where she was clearly disoriented - this happened circa 6:30 am. Right now she appears to be doing better, per sister. Ms Rodriguez denies dizziness, headache, chest pain, shortness of breath, nausea, vomiting. Today she is confident when she answers she knows she is in the hospital in [facility]. Exam Narrative Exam Narrative: General: Very pleasant frail elderly female, A&Ox3, looks better, speaks with more confidence Neurological: A&OX3, no obvious focal deficits, 5/5 strength throughout Skin: Ecchymosis L forehead (green); no obvious rashes HEENT: EOMI, MMM Cardiovascular: RRR, no m/r/g Lungs: CTAB Gastrointestinal: abdomen is soft, nontender, nondistended Extremities: 1+ pedal pulses B, no c/c Objective Objective Clinical Data: Abnormal lab results 09/19/18 09/20/18 09/20/18 Range/Units 22:10 06:28 06:28 WBC 10.99 H (4.4-10.8) k/cumm Absolute Monocytes 1.22 H (0.11-0.7) k/cumm Sodium 130 L 131 L (136-145) mmol/L Chloride 94 L 94 L (98-107) mmol/L BUN 20 H D (7-18) mg/dL Glucose 126 H (70-100) mg/dL 09/20/18 Range/Units 12:25 WBC (4.4-10.8) k/cumm Absolute Monocytes (0.11-0.7) k/cumm Sodium 133 L (136-145) mmol/L Chloride 96 L (98-107) mmol/L BUN (7-18) mg/dL Glucose 121 H (70-100) mg/dL Vital Signs Temperature 36.3 C L 09/20/18 11:26 Temperature Source Tympanic 09/20/18 11:26 Pulse 69 09/20/18 11:26 Pulse Rhythm Regular 09/19/18 20:35 Pulse 65 09/18/18 11:50 Respiratory Rate 16 09/20/18 11:26 Respiratory Effort 09/19/18 20:35 Respiratory Depth Normal 09/19/18 20:35 Respiratory Pattern Normal 09/19/18 20:35 Blood Pressure 114/68 09/20/18 11:26 Blood Pressure Mean 96 09/18/18 11:01 Blood Pressure Position Supine 09/18/18 09:00 Pulse Oximetry 95 09/20/18 11:26 Oxygen Delivery Method Room Air 09/20/18 11:26 Oxygen Flow Rate 0 09/20/18 11:26 Pain Level 0 09/20/18 11:26 Comment 09/18/18 23:15 Intake & Output 09/19/18 09/20/18 09/20/18 23:59 11:59 23:59 Intake Total 360 / 360 250 / 500 250 / 500 Output Total 425 / 1625 500 / 500 Balance -65 / -1265 -250 / 0 250 / 0 Weight 53.7 kg Intake: Oral 360 / 360 250 / 500 250 / 500 Output: Urine 425 / 1625 500 / 500 Other: Urine Color Yellow Urine Appearance Clear Clear Urine Odor None Stool Size Large Stool Characteristics Soft Brown Voiding Methods Toilet Toilet Laboratory Results WBC 10.99 k/cumm (4.4-10.8) H 09/20/18 06:28 RBC 4.64 m/cumm (4.00-5.20) 09/20/18 06:28 Hgb 13.4 g/dL (12.0-15.5) 09/20/18 06:28 Hct 39.3 % (36.0-46.0) 09/20/18 06:28 MCV 84.7 fL (80-95) 09/20/18 06:28 MCH 28.9 pg (27.0-33.0) 09/20/18 06:28 MCHC 34.1 g/dL (32.0-36.0) 09/20/18 06:28 RDW 12.5 % (11.7-14.6) 09/20/18 06:28 Plt Count 308 x1000/uL (130-400) 09/20/18 06:28 MPV 11.0 fL (8.0-11.0) 09/20/18 06:28 Immature Gran % 0.3 09/20/18 06:28 58.9 09/20/18 06:28 28.7 09/20/18 06:28 11.1 09/20/18 06:28 0.9 09/20/18 06:28 0.1 09/20/18 06:28 Absolute Neutrophils 6.47 k/cumm (1.2-6.7) 09/20/18 06:28 Absolute Lymphocytes 3.15 k/cumm (1.2-3.4) 09/20/18 06:28 Absolute Monocytes 1.22 k/cumm (0.11-0.7) H 09/20/18 06:28 Absolute Eosinophils 0.10 k/cumm (0.0-0.7) 09/20/18 06:28 Absolute Basophils 0.01 k/cumm (0.0-0.2) 09/20/18 06:28 ESR 16 mm/hr (0-30) 09/18/18 09:15 PT 9.9 sec (9.3-11.0) 09/18/18 09:15 INR 1.0 (0.9-1.1) 09/18/18 09:15 APTT 23.4 sec (21.0-31.4) 09/18/18 09:15 Sodium 133 mmol/L (136-145) L 09/20/18 12:25 Potassium 3.5 mmol/L (3.5-5.1) 09/20/18 12:25 Chloride 96 mmol/L (98-107) L 09/20/18 12:25 Carbon Dioxide 27.6 mmol/L (21.0-32.0) 09/20/18 12:25 9.4 mmol/L (3-11) 09/20/18 12:25 BUN 17 mg/dL (7-18) 09/20/18 12:25 0.84 mg/dL (0.55-1.02) 09/20/18 12:25 >= 60.00 (mL/min/1.73m2) 09/20/18 12:25 Glucose 121 mg/dL (70-100) H 09/20/18 12:25 200 mOsm/kg (275-295) L 09/18/18 10:00 Calcium 9.1 mg/dL (8.5-10.1) 09/20/18 12:25 Magnesium 2.0 mg/dL (1.8-2.4) 09/20/18 06:28 0.4 mg/dL (0.2-1.0) 09/18/18 09:15 AST 31 U/L (15-37) 09/18/18 09:15 ALT 27 U/L (12-78) 09/18/18 09:15 85 U/L (46-116) 09/18/18 09:15 0.17 mg/dL (0.0-0.3) 09/18/18 09:15 7.1 g/dL (6.4-8.2) 09/18/18 09:15 3.5 g/dL (3.4-5.0) 09/18/18 09:15 25-OH Vitamin D Total 37.1 ng/ml (30-100) 09/19/18 07:04 TSH 1.78 uIU/mL (0.36-3.74) 09/18/18 09:15 Free T4 1.05 ng/dL (0.76-1.46) 09/18/18 09:15 Yellow (Yellow) 09/18/18 10:00 Clear (Clear) 09/18/18 10:00 7.5 (5-8) 09/18/18 10:00 Ur Specific [place] 1.010 (1.005-1.025) 09/18/18 10:00 Negative mg/dL (Negative) 09/18/18 10:00 Negative mg/dL (Negative) 09/18/18 10:00 Negative (Negative) 09/18/18 10:00 Negative (Negative) 09/18/18 10:00 Negative (Negative) 09/18/18 10:00 0.2 EU/dL (Up TO 0.2) 09/18/18 10:00 Ur Leukocyte Esterase Small (Negative) H 09/18/18 10:00 Negative (0-2) 09/18/18 10:00 3-5 HPF (0-5) 09/18/18 10:00 Ur Epithelial Cells Few HPF (Negative) 09/18/18 10:00 Negative HPF (Negative) 09/18/18 10:00 Rare HPF (Negative) 09/18/18 10:00 Negative LPF (Negative) 09/18/18 10:00 Negative (Negative) 09/18/18 10:00 Few yeast (Negative) 09/18/18 10:00 Ur Culture Indicated? Yes 09/18/18 10:00 Ur Random Sodium < 5 mmol/L 09/18/18 10:00 Negative mg/dL (Negative) 09/18/18 10:00 Lyme Disease Antibody Negative 09/19/18 07:04 MRI lumbar spine: 1. Multilevel degenerative change in the lumbar spine. 2. Multilevel bilateral neural foraminal stenosis and central spinal canal stenosis as described above. 3. Left convex scoliotic curvature of the thoracolumbar spine. 4. L5 spondylolysis and grade 1 spondylolisthesis of L5 on S1.
[2018-09-20 15:34] VITALS: BP 125/73; PULSE 70; RESP 18; TEMP 36.7; O2SAT 96
--- NOTE | 2018-09-20 17:12 | PDOC.CMPRO ---
- If Service Date Differs Date of service: 09/20/18 Time of Service: 17:12 Care Management Progress Note S/O: Colleen is sitting up in the chair she is fully dressed, she describes disappointment that she is not being discharge today. Her sodium is improved however she continues to have some confusion. CM met with her sister Ethel and she request home health services to assist at home. Family can provide support she has 6 living siblings and they live local and within miles of her. They have agreed to not have her drive until she recovers CM will also contacted [facility] at primary care to discuss concerns. Radha wants a different provider at [facility] CM left a voicemail with concerns for [facility]. A: Radha is a 82 year old female admitted with Hyponatremia and falls at home. P: Colleen remains inpatient at this time, she continues to have some confusion, however she appears clearer today. She will be discharged home with new home health services for PT, OT, nursing and [employer]. CM will continue to follow and support discharge planning and disposition. Sister will transport her home when ready. Follow up with PCP, neurology at time of discharge.
[2018-09-20 20:10] VITALS: BP 120/78; PULSE 72; RESP 18; TEMP 36.2; O2SAT 95
[2018-09-20 23:12] VITALS: BP 148/77; PULSE 67; RESP 18; TEMP 36.5; O2SAT 99
[2018-09-21 04:08] VITALS: BP 153/83; PULSE 69; RESP 16; TEMP 36.5; O2SAT 97
[2018-09-21 07:13] LABS: Abs Immature Grans 0.03 k/cumm (0.0-0.09); Absolute Eosinophil Count 0.04 k/cumm (0.0-0.7); Absolute Lymphocyte Count 2.74 k/cumm (1.2-3.4); Absolute Monocyte Count 1.05 k/cumm (0.11-0.7); Absolute Neutrophil Count 5.37 k/cumm (1.2-6.7); Eosinophils % 0.4; HCT 36.7 % (36.0-46.0); HGB 12.4 g/dL (12.0-15.5); Immature Grans % 0.3; Lymphocytes % 29.7; Mean Corp. HGB Concentration 33.8 g/dL (32.0-36.0); Mean Corpuscular Hemoglobin 28.8 pg (27.0-33.0); Mean Corpuscular Volume 85.2 fL (80-95); Mean Platelet Volume 10.7 fL (8.0-11.0); Monocytes % 11.4; Neutrophils % 58.2; Platelet Count 276 x1000/uL (130-400); RBC 4.31 m/cumm (4.00-5.20); RBC Distribution Width 12.6 % (11.7-14.6); White Blood Cell Count 9.23 k/cumm (4.4-10.8)
[2018-09-21 07:48] LABS: Anion Gap 6.3 mmol/L (3-11); BUN 18 mg/dL (7-18); CO2 26.7 mmol/L (21.0-32.0); CREATININE 0.75 mg/dL (0.55-1.02); Calcium 8.7 mg/dL (8.5-10.1); Chloride 99 mmol/L (98-107); Glucose 99 mg/dL (70-100); Magnesium 1.8 mg/dL (1.8-2.4); Potassium 3.7 mmol/L (3.5-5.1); Sodium 132 mmol/L (136-145)
[2018-09-21 08:10] VITALS: BP 156/66; PULSE 66; RESP 16; TEMP 36.3; O2SAT 98
[2018-09-21 09:05] VITALS: BP 118/56; PULSE 70; RESP 16; O2SAT 98
[2018-09-21] MEDS: Metoprolol 25 MG TAB PO (09:14)
[2018-09-21] MEDS: Pantoprazole 40 MG TABCR PO (09:14)
[2018-09-21] MEDS: Doxycycline Hyclate 100 MG CAP PO (09:15)
[2018-09-21 10:11] LABS: Troponin I < 0.05 ng/mL (0.00-0.06)
[2018-09-21 10:52] VITALS: PULSE 95
--- NOTE | 2018-09-21 10:59 | PT.INTREAT ---
Date of service: 09/21/18 Time of Service: 10:59 PT Notes Inpatient Physical Therapy Treatment Note [facility] Date: 09/21/18 PRECAUTIONS: Fall SUBJECTIVE: Radha states that she is thirsty and doesn't understand why she is on such a strict fluid restriction. She continues to state that she wants to return to home. OBJECTIVE: PAIN: No c/o pain BED MOBILITY/TRANSFERS Sit-stand: I Stand-sit: I GAIT Assistive Device: 4WW in a.m.; No AD in p.m. Weight bearing: Full Assist: S in a.m.; CGA in p.m. Distance: 300' Deviation: Unsteady x3 with self recovery NEURO RE-ED: Patient completed a static standing balance retraining program in a.m., as per flow sheet. Patient also completed exercises with dynamic UE movements for improved static standing balance in a.m. Patient completed a dynamic standing balance retraining program in a.m., as per flow sheet. Patient required U UE support throughout p.m. session. ASSESSMENT: Patient tolerated the addition of balance retraining exercises, well, demonstrating need for continued balance retraining for safety. She continues to demonstrate safe transfers and gait with 4WW. PLAN: Continue with PT's POC TREATMENT CODE/TIME: Session 1: 30 minutes; 10218, [id number] Session 2: 30 minutes; 54202, [id number]
[2018-09-21 11:21] LABS: Troponin I < 0.05 ng/mL (0.00-0.06)
[2018-09-21 13:35] VITALS: BP 96/60; PULSE 91; RESP 17; TEMP 36.6; O2SAT 97
[2018-09-21 14:36] VITALS: PULSE 78
--- NOTE | 2018-09-21 14:40 | W.PM.DS.N ---
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 (3) PMR (polymyalgia rheumatica): Status: Chronic (4) Post concussive syndrome: Status: Acute (5) Right lumbar radiculopathy: Status: Chronic (6) Atrial flutter: Status: Chronic Asessment and Plan: paroxysmal, rate controlled, not on anticoagulation (7) Ambulatory dysfunction: Status: Acute Asessment and Plan: s/p 3 falls at home (8) History of pelvic fracture: Status: Chronic (9) Mild cognitive impairment: Status: Suspected Discharge Plan Disposition Patient Disposition: HOME W/HOME HEALTH SERVICE Condition: Stable Discharge Details Chief Complaint: GenMedical Clinical Impression: General weakness, Hyponatremia Reason For Visit: ACUTE ON CHRONIC HYPONATREMIA/SIADH Admit Date/Time: 09/18/18 10:50 Admit Provider: Yesenia Basilio Attending Provider: Yesenia Basilio Primary Care Provider: Andrez Anthony ED Provider: Mikel Mayers Hospital Course Hospital Course: Ms Rodriguez is an 82 year old female with PMHx of SIADH, paroxysmal Afib/flutter, not on anticoagulation, PMR on chronic prednisone, h/o DVT, no longer on anticoagulation, admitted to [facility] on 09/18/18 with hyponatremia due to SIADH, post concussive syndrome due to one of several falls she has suffered at home, and encephalopathy, mixed in etiology due to both of above. She was treated with fluid restriction, serial chemistry monitoring, and stress dose steroids, though acute adrenal insufficiency was less likely truly present on this admission. We felt it was worth to try stress dose steroids due to the post-concussive syndrome. The patient was evaluated by neurology for her confusion. While hyponatremia and fluid shifts could certainly be contributing to her confusion, and so could the post-concussive syndrome, it was also felt that the patient might be developing mild cognitive impairment, for which she should follow up with neurology as outpatient. Her sodium has normalized to her baseline of 132. On discharge home, she should follow a fluid restriction of 1500 cc/day and have a chemistry checked in 1 week. On day of discharge, the patient reported fluttering in her chest. Her EKG demonstrated SR with occasional PACs, otherwise normal heart rate. She was briefly placed on telemetry - this did show that the patient converts back and forth Afib (rate controlled) and NSR. PCP could consider ZioPatch monitoring if the patient continues to experience these symptoms at home. There is no evidence of ACS on this admission. The patient is a poor candidate for anticoagulation due to her 3 very recent falls and concern for more. As far as the falls, the patient did report right lower back pain. MRI of her lumbar spine revealed multilevel disease of her lumpbar spine. There was multilevel bilateral neural foraminal stenosis, central spinal canal stenosis, as well as L5 spondylosis and L5/S1 spondylolisthesis. Her pain was relieved with a lidocaine patch. She was evaluated by physical and occupational therapy for her ambulatory dysfunction. She would benefit from a walker on discharge, which the patient states was already ordered for her at home. Her stress dose steroids have been tapered to 20 mg PO daily. At home, she should take 2 days of 10 mg of prednisone, and then return back to 5 mg. We do not think that the patient had an acute flare of PMR on this admission. Her mental status is at her baseline and she is medically ready for discharge home with closer observation by family, home health nursing, PT/OT. Patient is instructed not to drive. Home health nursing is asked to draw a chemistry in 1 week with results going to patient's new PCP, Nitesh Rand. PCP is also to follow the results of CXR done prior to discharge in investigation of SIADH - read not available yet. 60 minutes were spent on care for patient as well as completion of discharge paperwork on day of discharge. Home Meds and New Rx's Prescriptions: New lidocaine [Lidoderm] 5 % Adhesive Patch,Medicated 1 patch topical DAILY@1999 Qty: 30 RF: 0 Continued metoprolol tartrate 25 mg tablet 25 mg PO BID Qty: 180 RF: 4 prednisone 5 mg tablet 10 mg PO DAILY Qty: 90 RF: 3 Discharge Instructions Instructions: Syndrome of Inappropriate Antidiuretic Hormone Secretion (DC), Fluid Restriction (DC) Additional Instructions: Fluid restriction of 1500 cc/day (fifty oz/day). Return to the hospital with any fever, bleeding, confusion, chest pain, or shortness of breath. Follow up with your new PCP as below. Follow up with neurology. Care Plan Goals: Home with home health RN, PT, OT. Referrals: Jessica Rushing MD [ [facility] STAFF PHYSICIAN] - 09/26/18 2:40 pm Julissa Hope MD [ [facility] STAFF PHYSICIAN] - Activity:: Activity as Tolerated Equipment/Supplies:: walker - patient already has at home Diet:: Fluid restriction of 1500 cc/day Discharge Orders Discharge Orders: Discharge Order (Routine); Ordered 09/21/18 Ordered By: Yesenia Basilio Exam Narrative Exam Narrative: General: Very pleasant frail elderly female, A&Ox3,looks much better today, readily answers questions, does not look confused Skin: Ecchymosis L forehead (green); no obvious rashes HEENT: EOMI, MMM Cardiovascular: RRR, no m/r/g Lungs: CTAB Gastrointestinal: abdomen is soft, nontender, nondistended Extremities: 1+ pedal pulses B, no c/c DS: Data Vitals/I&O Vitals and I&O: Vital Signs Temperature 36.6 C 09/21/18 13:35 Temperature Source Temporal Artery Scan 09/21/18 13:35 Pulse 91 H 09/21/18 13:35 Pulse Rhythm Irregular 09/21/18 09:05 Pulse 65 09/18/18 11:50 Respiratory Rate 17 09/21/18 13:35 Respiratory Effort Non-Labored 09/21/18 09:05 Respiratory Depth Normal 09/21/18 09:05 Respiratory Pattern Normal 09/21/18 09:05 Blood Pressure 96/60 L 09/21/18 13:35 Blood Pressure Mean 96 09/18/18 11:01 Blood Pressure Position Supine 09/18/18 09:00 Pulse Oximetry 97 09/21/18 13:35 Oxygen Delivery Method Room Air 09/21/18 13:35 Oxygen Flow Rate 0 09/21/18 13:35 Pain Level 0 09/21/18 09:05 Comment 09/18/18 23:15 Intake & Output 09/20/18 09/21/18 09/21/18 23:59 11:59 23:59 Intake Total 490 / 740 160 / 400 240 / 400 Output Total 300 / 800 Balance 190 / -60 160 / 400 240 / 400 Weight 54.516 kg Intake: IV 10 / 10 Oral 490 / 740 150 / 390 240 / 390 Output: Urine 300 / 800 Other: Urine Color Straw Yellow Urine Appearance Clear Clear Comment pt stated voided a few times today Patient unable to void Voiding Methods Toilet Completed studies during hospitalization [Text1]: MRI lumbar spine 09/19/18: 1. Multilevel degenerative change in the lumbar spine. 2. Multilevel bilateral neural foraminal stenosis and central spinal canal stenosis as described above. 3. Left convex scoliotic curvature of the thoracolumbar spine. 4. L5 spondylolysis and grade 1 spondylolisthesis of L5 on S1. CT lumbar spine 09/18/18: No acute fracture or subluxation in the lumbar spine. CT brain: No acute intracranial process CT c-spine: No acute fracture or subluxation in the cervical spine. CXR pending Pending studies at discharge: Tick studies to be followed up by PCP. CXR to be followed up by PCP Labs on day of discharge: Labs from last 24 hours 09/21/18 09/21/18 09/21/18 14:04 09:40 06:40 WBC RBC Hgb Hct MCV MCH MCHC RDW Plt Count MPV Immature Gran % Neutrophils % Lymphocytes % Monocytes % Eosinophils % Basophils % Absolute Neutrophils Absolute Lymphocytes Absolute Monocytes Absolute Eosinophils Absolute Basophils Sodium Potassium Chloride Carbon Dioxide Anion Gap BUN Creatinine Estimated GFR/1.73 m2 Glucose Calcium Magnesium Troponin I Pending < 0.05 < 0.05 09/21/18 09/21/18 06:40 06:40 WBC 9.23 RBC 4.31 Hgb 12.4 Hct 36.7 MCV 85.2 MCH 28.8 MCHC 33.8 RDW 12.6 Plt Count 276 MPV 10.7 Immature Gran % 0.3 Neutrophils % 58.2 Lymphocytes % 29.7 Monocytes % 11.4 Eosinophils % 0.4 Basophils % 0.0 Absolute Neutrophils 5.37 Absolute Lymphocytes 2.74 Absolute Monocytes 1.05 H Absolute Eosinophils 0.04 Absolute Basophils 0.00 Sodium 132 L Potassium 3.7 Chloride 99 Carbon Dioxide 26.7 Anion Gap 6.3 BUN 18 Creatinine 0.75 Estimated GFR/1.73 m2 >= 60.00 Glucose 99 Calcium 8.7 Magnesium 1.8 Troponin I [facility] Medical History Atrial flutter (Resolved) Celiac disease (Chronic 06/12/13) Cortical cataract of left eye (Resolved) DVT (deep venous thrombosis) (Chronic) Epiretinal membrane (ERM) of left eye (Chronic) GERD (gastroesophageal reflux disease) History of pelvic fracture (Chronic) Nuclear sclerotic cataract of left eye (Resolved) Osteoarthritis Osteoporosis (Chronic) Paroxysmal atrial fibrillation Polymyalgia rheumatica Polymyalgia rheumatica (Resolved 08/14/14) Surgical History Cholecystectomy (~01/2007) Colonoscopy - MAC Hemorrhoidal Banding (04/27/17) Status post cataract extraction and insertion of intraocular lens of left eye (Chronic 05/02/18) Status post cataract extraction and insertion of intraocular lens of right eye (Chronic 05/16/18) Family History Mother No problems noted. Father Neoplasm Sister Neoplasm Social History Smoking/Tobacco Use Status: Never Alcohol Intake: never Drug use: Never Substance use type: does not use current occupation: Cleaning [employer] Pets and animals: No What type of physical activity do you participate in: none Jennifer/Yazidi: Tenriism Special jennifer needs: No Do you feel safe at home: Yes Do you feel safe in your relationship?: Yes
[2018-09-21 14:51] LABS: Troponin I < 0.05 ng/mL (0.00-0.06)
[2018-09-21] MEDS: predniSONE 10 MG TAB 20 MG PO (14:53)
[2018-09-21] MEDS: Enoxaparin 40 MG/0.4 ML SYR SC (14:58)
--- NOTE | 2018-09-21 15:11 | PDOC.HHF2F ---
1. Encounter Date and Reason I certify that YESENIA ROGERS was seen by Yesenia Basilio on 09/21/18 and that I had a [id number] encounter with this patient that meets the physician face to face encounter requirements. 2. Clinical Findings Supporting Skilled Need and Homebound Status I certify that home health services are medically necessary, include either intermittent penitentiary and/or physical/speech therapy, and that this patient is homebound in that absences from the home require considerable and taxing effort and are infrequent or of short duration, or are attributable to the need to receive medical care. [X] (a) Attached documentation from encounter provides clinical findings supporting skilled need and homebound status (including what assistance patient requires to leave the home). The encounter with the patient was in whole, or in part, for the following medical condition, which is the primary reason for home health care: ACUTE ON CHRONIC HYPONATREMIA/SIADH Penitentiary: hyponatremia, confusion at home. Please, collect BMP on 09/28/18 - results to Dr Rushing Physical Therapy: eval and treat Occupationa Therapy: eval and treat Homebound: unable to leave home without assistance 3. Certification and Authentication I certify that I composed the above information based on my clinical judgement relating to this patient's medical condition and, if applicable, clinical findings communicated to me by the NPP or inpatient physician who performed the Home Health Referral. All further orders will be obtained through _Dr Rushing (Community Based Physician - PCP)
--- NOTE | 2018-09-21 15:21 | DI.RAD_ITS ---
SYMPTOMS/DIAGNOSIS: SIADH, ? LUNG MASS PA AND LATERAL CHEST: The lungs are well expanded and free of infiltrate. There is no pleural effusion. The cardiovascular structures are intact. SUMMARY: No evidence of acute cardiopulmonary disease. Lumbar left rotoscoliotic deformity.
--- NOTE | 2018-09-21 18:08 | PDOC.CMDIS ---
- If Service Date Differs Date of service: 09/21/18 Time of Service: 18:09 LACE Index Scoring Tool - Questions: Length of Stay (in days): 3 Acuity (Admit via E.D.?): Yes E.D. Visits: 4 - Answers: Total Score: 10 Risk of Readmission: High Risk Care Management Discharge Reason for Hospitalization: Acute on chronic hyponatremia Discharge Plan: Colleen will be discharged home with new home health services of nursing, PRINT FINISHER, OT and PT through [facility]. She will be transported via private vehicle with her sister. Colleen will follow up with her PCP and discharge plan of care. Patient/Family Education Needs: Discharge plan, limitations, follow up plan, Ask Me Three. Services Needed at Discharge: Home Health Care Services, Occupational Therapy, Physical Therapy
--- NOTE | 2018-09-22 15:39 | INDS_ITS ---
Date of service: 09/22/18 Time of Service: 15:40 PT Notes Inpatient Physical Therapy Discharge Summary Dates: 09/22/2018 Dates of Service: 09/19/2018 through 09/21/2018 Referring Doctor: Yesenia Basilio MD PT Orders: PT CONSULT: Eval/treat Precautions: Fall. Standard. Mildly confused. Patient Profile/Admitting Diagnosis: Patient is an 82-year-old female with past medical history paroxysmal atrial fibrillation, polymyalgia rheumatica, osteoarthritis who presented to the ED on 09/18/2018 with chief complaints of generalized weakness and feeling of unsteadiness on her feet for over a week with several falls. Head and spine CT are negative. ECG is negative. Patient is diagnosed with SIADH, postconcussive syndrome, right lumbar radiculopathy, and ambulatory dysfunction. Referral for physical therapy was made in order to address impairments in strength, balance, and mobility level. PMHX: Medical History (Updated 09/18/18 @ 17:22 by Yesenia Basilio MD) Atrial flutter (Resolved) Celiac disease (Chronic 06/12/13) Cortical cataract of left eye (Resolved) DVT (deep venous thrombosis) (Chronic) Epiretinal membrane (ERM) of left eye (Chronic) GERD (gastroesophageal reflux disease) History of pelvic fracture (Chronic) Nuclear sclerotic cataract of left eye (Resolved) Osteoarthritis Osteoporosis (Chronic) Paroxysmal atrial fibrillation Polymyalgia rheumatica Polymyalgia rheumatica (Resolved 08/14/14) Surgical History (Updated 08/26/18 @ 12:00 by Matthew Cotton) Cholecystectomy (~01/2007) Colonoscopy - MAC Hemorrhoidal Banding (04/27/17) Status post cataract extraction and insertion of intraocular lens of left eye (Chronic 05/02/18) Status post cataract extraction and insertion of intraocular lens of right eye (Chronic 05/16/18) Social History/Home Situation: Patient lives alone in a 2-floor house with 1 step to enter that leads onto a porch that provides access to the dining room. She is independent with all aspects of ADLs with a front-wheeled walker. She does a lot of gardening. Current Functional Limitations: Need for assistive device for all transfer and ambulation task performance Equipment Owned/DME: Patient describes having a 4-wheeled walker at home Subjective: NT Objective: General Observation: NT Mental Status: NT Pain:NT ROM: Right Upper Extremity: Shoulder Flexion WFL. Shoulder abduction WFL. Elbow flexion WFL. Wrist flexion WFL. Functional opening and closing of hand WFL. Left Upper Extremity: Shoulder Flexion WFL. Shoulder abduction WFL. Elbow flexion WFL. Wrist flexion WFL. Functional opening and closing of hand WFL. Right Lower Extremity: Hip flexion WFL. Hip abduction WFL. Knee flexion WFL. Ankle dorsiflexion WFL. Ankle plantarflexion WFL. Left Lower Extremity: Hip flexion WFL. Hip abduction WFL. Knee flexion WFL. Ankle dorsiflexion WFL. Ankle plantarflexion WFL. Strength: Right Upper Extremity: Shoulder flexors 5/5. Shoulder abductors 5/5. Elbow flexors 5/5. Elbow extensors 5/5. Sanitation Technician strong. Left Upper Extremity: Shoulder flexors 5/5. Shoulder abductors 5/5. Elbow flexors 5/5. Elbow extensors 5/5. Sanitation Technician strong. Right Lower Extremity: Hip flexors 4-/5. Hip abductors 4-/5. Knee flexors 4-/5. Knee extensors 4-/5. Ankle dorsiflexors 4-/5. Ankle plantarflexors 4-/5. Left Lower Extremity:Hip flexors 3+/5. Hip abductors 4-/5. Knee flexors 4-/5. Knee extensors 4-/5. Ankle dorsiflexors 4-/5. Ankle plantarflexors 4-/5. Sensation: Intact as to pain and pressure on bilateral lower extremities. Bed Mobility/Transfers: Rolling I Supine to sit I Sit to supine I Sit to stand I Stand to sit I Bed to chair I Chair to bed I Gait: Patient was able to tolerate level surface ambulation of 300 feet with 4WW with supervision, minimal verbal cues given direction and walker management. No episode of LOB seen. Gait pattern unremarkable. Balance: Static Sitting: Normal Dynamic Sitting: Normal Static Standing: Good Dynamic Standing: Fair Assessment: Patient presents with clinical signs and symptoms consistent with current/admitting diagnoses that have resulted to mobility limitations, gait instability, generalized weakness, and impairment of motor control as demonstrated by the following impairment level findings: 1. Decreased strength to B LE hip/knee major muscle groups 2. Impaired standing balance 3. Impaired activity tolerance Impairments are contributing to the following functional limitations: 1. Inability to safely ambulate without assistive device and physical assistance 2. Increase completion time for mobility ADL performance 3. Increased fall risk4. Inability to negotiate steps alone safely Goals: Goals X1 week 1. Supine-Sit independent MET 2. Sit-Supine independent MET 3. Sit-Stand independent MET 4. Stand-Sit independent MET 5. Bed-Chair independent MET 6. Chair-Bed independent MET 7. Independent gait on level surface with use of least restrictive device for at least 100 feet without report of pain nor dyspnea NOT MET 8. Independent stair negotiation while holding onto bilateral rails for at least 5 steps without report of pain nor dyspnea NOT MET 9. Independent with home exercise program NOT MET 10. Good static and dynamic standing balance/tolerance NOT MET DISCHARGE RECOMMENDATIONS: Patient will benefit from home health PT services in order to progress mobility level using least restrictive assistive ambulatory device/using no device, assess home safety, identify additional equipment needs, and establish a functional maintenance program that will increase ability of p atient to remain at home. TREATMENT CODE/TIME: DC Thank you very much for this referral. Denise Ramirez PT, DPT, CLT [facility]
[2018-09-22 21:38] LABS: Anaplasma phagocytophilum Negative (Negative); B. miyamotoi PCR Negative (Negative); Babesia divergens/MO-1 Negative (Negative); Babesia duncani Negative (Negative); Babesia microti Negative (Negative); Ehrlichia chaffeensis Negative (Negative); Ehrlichia ewingii/canis Negative (Negative); Ehrlichia muris eauclairensis Negative (Negative)
== END 2018-09-21 16:05 | disposition home health service (06) | DRG 71 ==
LOC: ER 11:21 → MS 12:08
PROVIDERS: Admitting Provider Internal Medicine; Emergency Provider Emergency Medicine; PCP Family Medicine; Visit Provider Internal Medicine
DX: G93.40 Encephalopathy, unspecified (principal); E22.2 Syndrome of inappropriate secretion of antidiuretic hormone; I48.92 Unspecified atrial flutter; M35.3 Polymyalgia rheumatica; F07.81 Postconcussional syndrome; M54.16 Radiculopathy, lumbar region; R26.2 Difficulty in walking, not elsewhere classified; G31.84 Mild cognitive impairment of uncertain or unknown etiology; Z79.52 Long term (current) use of systemic steroids; W19.XXXA Unspecified fall, initial encounter; Z66 Do not resuscitate; M48.061 Spinal stenosis, lumbar region without neurogenic claudication; F03.90 Unspecified dementia, unspecified severity, without behavioral disturbance, psychotic disturbance, mood disturbance, and anxiety
CPT/HCPCS: 36410; 36415; 80048; 80053; 82306; 85652; 87798; 93005; 96360; 97110; 97112; 97162; 97165; 97530; 99223; 99232; 99239; 99285; J1650; 70450; 71046; 72125; 72131; 72148; 81003; 81015; 83735; 83930; 84300; 84439; 84443; 84484; 85025; 85610; 85730; 86140; 86618; 87086; 93010; J1720; J7512

== ENCOUNTER → 2018-09-19 13:11 | Outpatient (BNVA) | payer MEDICARE, OTHER, SELFPAY | PROVIDERS: PCP Family Medicine; Visit Provider Psychiatry & Neurology Neurology | DX: R69 Illness, unspecified (principal) ==

== ENCOUNTER 2018-09-29 15:32 | Emergency (ER) | payer MEDICARE, OTHER, SELFPAY ==
[2018-09-29 15:38] VITALS: BP 191/82; PULSE 102; RESP 16; TEMP 37.1; O2SAT 99
--- NOTE | 2018-09-29 15:54 | DI.CT_ITS ---
SYMPTOM/DIAGNOSIS: LT HEADACHE NONCONTRAST HEAD CT: A noncontrast cranial CT was performed. There is moderate generalized cerebral atrophy and there are patchy areas of decreased attenuation of periventricular white matter consistent with microvascular ischemic change. Paranasal sinuses and mastoid air cells are clear as visualized. Orbital and temporal bone structures appear intact. CONCLUSION: No evidence of acute intracranial process. Age appropriate changes as described.
[2018-09-29 16:09] LABS: Abs Immature Grans 0.03 k/cumm (0.0-0.09); Absolute Basophil Count 0.01 k/cumm (0.0-0.2); Absolute Eosinophil Count 0.03 k/cumm (0.0-0.7); Absolute Lymphocyte Count 1.63 k/cumm (1.2-3.4); Absolute Monocyte Count 0.73 k/cumm (0.11-0.7); Absolute Neutrophil Count 6.27 k/cumm (1.2-6.7); Basophils % 0.1; Eosinophils % 0.3; HCT 39.6 % (36.0-46.0); HGB 13.5 g/dL (12.0-15.5); Immature Grans % 0.3; Lymphocytes % 18.7; Mean Corp. HGB Concentration 34.1 g/dL (32.0-36.0); Mean Corpuscular Hemoglobin 28.7 pg (27.0-33.0); Mean Corpuscular Volume 84.1 fL (80-95); Mean Platelet Volume 10.3 fL (8.0-11.0); Monocytes % 8.4; Neutrophils % 72.2; Platelet Count 255 x1000/uL (130-400); RBC 4.71 m/cumm (4.00-5.20)
[2018-09-29 16:25] LABS: PTT Activated 23.1 sec (21.0-31.4); Prothrombin Time 9.7 sec (9.3-11.0)
[2018-09-29 16:26] LABS: ALT 28 U/L (12-78); AST 15 U/L (15-37); Albumin 3.8 g/dL (3.4-5.0); Alkaline Phosphatase 102 U/L (46-116); BUN 15 mg/dL (7-18); Bilirubin, Total 0.4 mg/dL (0.2-1.0); CREATININE 0.94 mg/dL (0.55-1.02); Calcium 9.4 mg/dL (8.5-10.1); Chloride 92 mmol/L (98-107); Estimated GFR 57.01 (mL/min/1.73m2); Glucose 131 mg/dL (70-100); Potassium 4.2 mmol/L (3.5-5.1); Sodium 127 mmol/L (136-145); Total Protein 7.5 g/dL (6.4-8.2)
--- NOTE | 2018-09-29 16:46 | W.ED.GENAD ---
Discharge Plan Disposition Patient Disposition: HOME Condition: Good Discharge Details Chief Complaint: Headache Clinical Impression: Headache Primary Care Provider: Andrez Anthony ED Provider: Temo Douglas Home Meds and New Rx's Prescriptions: No Action metoprolol tartrate 25 mg tablet 25 mg PO BID Qty: 180 RF: 4 prednisone 5 mg tablet 5 mg PO DAILY Qty: 90 RF: 3 Discharge Instructions Instructions: General Headache (ED) Additional Instructions: Please continue your regular free water restriction. Please follow-up very closely with your primary care provider in regards to your headaches. Please discuss with your primary care provider potential additional blood pressure control medications. If you notice any worsening of your symptoms, or any new symptoms such as vomiting, diarrhea, fever, chills, shortness of breath, chest pain, numbness, weakness, or fainting , please return immediately to the emergency department for reevaluation. Please follow up with your primary care provider as soon as possible for reassessment and reevaluation. As always, it was a pleasure participating in your medical care today. Referrals: Andrez Anthony MD [Primary Care Provider] - Discharge Data Discharge Date/Time-TO BE ENTERED AT DEPARTURE: 09/29/18 18:29 Medical Decision Making This is an 82-year-old female with a past medical history of hypertension, venous hyponatremia, A. fib/a flutter not on anticoagulants, who presents today for evaluation of headache. She has had identical headaches like this in the past. Last time she had a headache like this she had a lumbar puncture, CT CTA, all of which were negative. At this time she states that her headache is been present for the last week. It is on the left side of her head and throbbing in nature. It is identical to her previous one. She denies any other concerning headache red flags. Due to her age we will get a repeat CT scan to rule out acute process, we will gently rehydrate, and give migraine cocktail. Clinically she shows no clinical evidence of meningitis at this time. No neurologic deficits to suggest intracranial bleed. Clinical history and exam at this time are clinically inconsistent with acute intracranial hemorrhage or subarachnoid bleed. 7 PM Laboratory work-up has returned negative for any significant abnormalities aside for a mildly low sodium at 127. She has been much lower in the past. CT scan was read by virtual radiology as negative for any acute intracranial process. No evidence of significant bleed. On reassessment the patient had complete resolution of her headache and symptoms. She was given a small fluid bolus of normal saline in addition to the migraine cocktail. At this time patient states that she would like to leave immediately. She feels completely better and is frustrated that she still has to be here at this time. At this time with a complete resolution of her headache, her signs and symptoms appear inconsistent with meningitis, acute intracranial hemorrhage or subarachnoid hemorrhage, and a negative CT scan there is no evidence of acute process or mass. Additionally when she had a notable headache like this last time, lumbar puncture was negative for any abnormalities, the remainder of her work-up was benign at that time. We did discuss prolonged observation time here, patient states that she would like to leave and go home right now. Repeat neurologic exam was performed and demonstrates no focal neurologic deficits. She continues to show no management respecting the patient's wishes, she will be discharged home. Discussed the importance of close follow-up with her PCP especially for blood pressure control, and potential outpatient headache medications. I have extensively reviewed the treatment plan and discharge instructions with the patient and their family. I have addressed all patient concerns at this time. The patient and family was made aware of what symptoms to monitor for that would warrant a return to the emergency department. Discussed the plan with the patient and family, they demonstrate verbal understanding and agreement with our assessment and plan at this time. FINDINGS: Brain: Global cerebral atrophy is consistent with patient's age. Decreased attenuation within the white matter tracts of both cerebral hemispheres is nonspecific but typically seen with small vessel disease/chronic white matter ischemic changes of aging. No intracranial hemorrhage or mass effect. Ventricles: Unremarkable. No ventriculomegaly. Bones/joints: Unremarkable. No acute fracture. Sinuses: Visualized sinuses are unremarkable. No fluid levels. Mastoid air cells: Visualized mastoid air cells are well aerated. No mastoid effusion. Orbits: Bilateral scleral tomas. The orbits are otherwise unremarkable. Soft tissues: Unremarkable. IMPRESSION: No acute abnormality. Thank you for allowing us to participate in the care of your patient. Dictated and Authenticated by: Nitesh Burris MD Ocular US Exam type: diagnostic Indication for exam: vision complaint Views obtained: Eye transverse and longitudinal Findings and interpretations: all views were adequate. Retinal contour was normal. Vitreous body was anechoic. Lens was well positioned. No evidence of lens dislocation or retinal detachment. Optic nerve was measured and found to be less than 5mm. The patient tolerated the procedure well and there were no complications. HPI General Date/Time Provider Initiated Documentation: 09/29/18 15:53. HPI Narrative: This is an 82-year-old female with a past medical history of atrial flutter/fibrillation, previous DVT for which she is no longer on blood thinners, hypertension, cataracts, who is only on metoprolol, chronic prednisone. She presents today for evaluation of headache. She has had headaches identical to this in the past, she recently had resolution of these headaches a few weeks ago, unfortunately is come back for the last week. She describes it as an achy throbbing sensation in her left head behind her left eye. Not necessarily worsened with light or loud noises. She denies any neck pain, fever or chills. She states that this headache is identical to her previous ones. She has had low sodium in the past which may or may not have been attributed to this. She denies any recent falls or trauma. She denies any chest pain or shortness of breath. She denies any pain in her temples. She denies any history of rheumatoid arthritis or lupus. Or giant cell arteritis. The patient denies any headache red flags of worst headache of life, thunderclap headache, neck pain, fever, chills, concerning family history of polycystic kidney disease, Marfan syndrome, Lalita-Danlos syndrome, abdominal aortic aneurysm, aortic dissection, or intracranial aneurysm. Of note the last time the patient was seen for headache she had a lumbar puncture was negative, CT and CTA of the head, both of which were benign. Sodium was slightly low. Migraine cocktail did resolve her headache. Related Data Home Medications Medication Instructions Recorded Confirmed metoprolol tartrate 25 mg tablet 25 mg PO BID #180 tab-cap 06/07/18 09/29/18 prednisone 5 mg PO DAILY #90 tab 09/21/18 09/29/18 Previous Rx's Medication Instructions Recorded metoprolol tartrate 25 mg tablet 25 mg PO BID #180 tab-cap 06/07/18 prednisone 5 mg PO DAILY #90 tab 09/21/18 Allergies Allergy/AdvReac Type Severity Reaction Status Date / Time carbamazepine AdvReac Severe Confusion Verified 09/26/18 14:47 and disorientation morphine AdvReac Intermediate made my Verified 09/26/18 14:47 chest feel likie I was in a vice General Stated Complaint: Headache HARSHAD: 3 Review of Systems Review of Systems All systems reviewed & are unremarkable except as noted in HPI and below PFSH Medical History (Updated 09/21/18 @ 14:42 by Yesenia Basilio MD) Atrial flutter (Chronic) Celiac disease (Chronic 06/12/13) Cortical cataract of left eye (Resolved) DVT (deep venous thrombosis) (Chronic) Epiretinal membrane (ERM) of left eye (Chronic) GERD (gastroesophageal reflux disease) History of pelvic fracture (Chronic) Nuclear sclerotic cataract of left eye (Resolved) Osteoarthritis Osteoporosis (Chronic) Paroxysmal atrial fibrillation Polymyalgia rheumatica Polymyalgia rheumatica (Resolved 08/14/14) Surgical History Cholecystectomy (~01/2007) Colonoscopy - MAC Hemorrhoidal Banding (04/27/17) Status post cataract extraction and insertion of intraocular lens of left eye (Chronic 05/02/18) Status post cataract extraction and insertion of intraocular lens of right eye (Chronic 05/16/18) Social History Smoking/Tobacco Use Status: Never Alcohol Intake: never Drug use: Never Substance use type: does not use current occupation: Cleaning Services Pets and animals: No What type of physical activity do you participate in: none Jennifer/Rastafari: Pentecostal Special jennifer needs: No Do you feel safe at home: Yes Do you feel safe in your relationship?: Yes Exam Narrative Exam Narrative: 1.Const: Well-nourished, Well-developed, appearing stated age 2.Eyes: PERRL, no conjunctival injection, and symmetrical lids. 3.ENT: Atraumatic external nose and ears. Moist MM. Neck: Symmetric, trachea midline, No thyromegaly. Patient demonstrates good movement of cervical neck. There is no nuchal rigidity, no nuchal tenderness. Patient is able to flex the neck without any difficulty or significant pain. Negative Kernig's and Brudzinski sign. . Fundoscopic exam shows normal optic discs and normal vasculature. No external signs of preseptal cellulitis, no redness around the eye, no proptosis. No tenderness on palpation of the eye. Eyeball does not feel disproportionately firm. 4.CVS: +S1/S2, No murmurs or gallops. Peripheral pulses 2+ and equal in all extremities. Brisk capillary refill in all extremities. 5.RESP: Unlabored respiratory effort. Clear to auscultation bilaterally. No wheezes rales or rhonchi 6.GI: Soft, Nontender/Nondistended, No hepatosplenomegaly. No guarding or rebound. 7.MSK: Normocephalic/Atraumatic, Extremities w/o deformity or ttp No cyanosis or clubbing, Normal movement of all extremities 8.Skin: Warm, Dry. No rashes or lesions. 9.Neuro: travel service consultant II-XII grossly intact. Sensation grossly intact, no focal neurologic deficits. All 6 cardinal planes of vision are fully intact. No evidence of rotatory or vertical nystagmus. The patient demonstrated a normal [id number], good dexterity. There was no evidence of dysdiadochokinesia. Patient was able to ambulate without difficulty. There was no wide-based gait. Romberg, and [id number]-[id number] are both normal on testing. Sensation was intact bilaterally as well as muscle strength bilaterally for all extremities. Patient was able to verbalize butter cup with no slurring, or miss pronunciation. 10.Psych: (AAO) x3. Appropriate mood and affect Course Vital Signs Temperature 37.1 C 09/29/18 15:38 Pulse 102 H 09/29/18 15:38 Respiratory Rate 16 09/29/18 15:38 Blood Pressure 191/82 H 09/29/18 15:38 Pulse Oximetry 99 09/29/18 15:38 Temperature 37.1 C 09/29/18 15:38 Temperature Source Skin 09/29/18 15:38 Pulse 102 H 09/29/18 15:38 Respiratory Rate 16 09/29/18 15:38 Respiratory Effort Non-Labored 09/29/18 15:42 Blood Pressure 191/82 H 09/29/18 15:38 Blood Pressure Position Sitting 09/29/18 15:38 Pulse Oximetry 99 09/29/18 15:38 Pain Level 8 09/29/18 15:38 Lab/Test Results Lab/Test Results: Laboratory Tests Range/Units 09/29/18 09/29/18 09/29/18 15:45 15:45 15:45 WBC (4.4-10.8) k/cumm 8.70 RBC (4.00-5.20) m/cumm 4.71 Hgb (12.0-15.5) g/dL 13.5 Hct (36.0-46.0) % 39.6 MCV (80-95) fL 84.1 MCH (27.0-33.0) pg 28.7 MCHC (32.0-36.0) g/dL 34.1 RDW (11.7-14.6) % 13.0 Plt Count (130-400) x1000/uL 255 MPV (8.0-11.0) fL 10.3 Immature Gran % 0.3 Neutrophils % 72.2 Lymphocytes % 18.7 Monocytes % 8.4 Eosinophils % 0.3 Basophils % 0.1 Absolute Neutrophils (1.2-6.7) k/cumm 6.27 Absolute Lymphocytes (1.2-3.4) k/cumm 1.63 Absolute Monocytes (0.11-0.7) k/cumm 0.73 H Absolute Eosinophils (0.0-0.7) k/cumm 0.03 Absolute Basophils (0.0-0.2) k/cumm 0.01 PT (9.3-11.0) sec 9.7 INR (0.9-1.1) 1.0 APTT (21.0-31.4) sec 23.1 Sodium (136-145) mmol/L 127 L Potassium (3.5-5.1) mmol/L 4.2 Chloride (98-107) mmol/L 92 L Carbon Dioxide (21.0-32.0) mmol/L 24.0 Anion Gap (3-11) mmol/L 11.0 BUN (7-18) mg/dL 15 Creatinine (0.55-1.02) mg/dL 0.94 Estimated GFR/1.73 m2 (mL/min/1.73m2) 57.01 Glucose (70-100) mg/dL 131 H Calcium (8.5-10.1) mg/dL 9.4 Total Bilirubin (0.2-1.0) mg/dL 0.4 AST (15-37) U/L 15 ALT (12-78) U/L 28 Alkaline Phosphatase (46-116) U/L 102 Total Protein (6.4-8.2) g/dL 7.5 Albumin (3.4-5.0) g/dL 3.8
--- NOTE | 2018-09-29 16:53 | DI.VRAD_ITS ---
EXAM: CT Head Without Contrast EXAM DATE/TIME: 09/29/2018 3:56 PM CLINICAL HISTORY: 82 years old, female; Other: Headache, left sided TECHNIQUE: Imaging protocol: Computed tomography images of the head without contrast. Coronal and sagittal reformatted images were created and reviewed. Radiation optimization: All CT scans at this facility use at least one of these dose optimization techniques: automated exposure control; mA and/or kV adjustment per patient size (includes targeted exams where dose is matched to clinical indication); or iterative reconstruction. COMPARISON: CT HEAD CERVICAL SPINE WO 09/18/2018 9:36 AM FINDINGS: Brain: Global cerebral atrophy is consistent with patient's age. Decreased attenuation within the white matter tracts of both cerebral hemispheres is nonspecific but typically seen with small vessel disease/chronic white matter ischemic changes of aging. No intracranial hemorrhage or mass effect. Ventricles: Unremarkable. No ventriculomegaly. Bones/joints: Unremarkable. No acute fracture. Sinuses: Visualized sinuses are unremarkable. No fluid levels. Mastoid air cells: Visualized mastoid air cells are well aerated. No mastoid effusion. Orbits: Bilateral scleral tomas. The orbits are otherwise unremarkable. Soft tissues: Unremarkable. IMPRESSION: No acute abnormality. Dictated and Authenticated by: Nitesh Burris MD. Ordering:TRENTON Plascencia MD
[2018-09-29] MEDS: Normal Saline 500 ML 1000 ML IV (17:00)
[2018-09-29] MEDS: methylPREDNISolone SUCC 125 MG VIAL IVP (17:00)
[2018-09-29] MEDS: Prochlorperazine 10 MG/2 ML VIAL IVP (17:00)
[2018-09-29] MEDS: ACETAMINOPHEN 1,000 MG/100 ML BTL 400 MG IVPB (17:19)
[2018-09-29 18:27] VITALS: BP 142/80; PULSE 72; RESP 16; O2SAT 99
== END 2018-09-29 18:29 | disposition home or self-care (01) ==
PROVIDERS: Emergency Provider Student in an Organized Health Care Education/Training Program; PCP Family Medicine
DX: R51 Headache (principal); R11.2 Nausea with vomiting, unspecified; E87.1 Hypo-osmolality and hyponatremia; I10 Essential (primary) hypertension; I48.0 Paroxysmal atrial fibrillation
CPT/HCPCS: 36415; 80053; 96374; 96375; 99284; 70450; 85025; 85610; 85730; J0131; J0780; J2930

== ENCOUNTER 2018-10-04 12:48 | Emergency (ER) | payer MEDICARE, OTHER, SELFPAY ==
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
--- NOTE | 2018-10-04 13:01 | NUR.NOTE ---
Nursing Note: pt has 10/10 headache pt states no history of headache pt describes it as sharp noting makes it worse or better constant pain not pounding. BP is 182/62
[2018-10-04 13:02] VITALS: BP 182/69; PULSE 82; RESP 16; TEMP 36.8; O2SAT 98
[2018-10-04 13:16] VITALS: BP 190/78; PULSE 77; RESP 16; TEMP 36.7; O2SAT 97
--- NOTE | 2018-10-04 13:23 | ED.GENADUL_ITS ---
Discharge Plan Disposition Patient Disposition: HOME Condition: Stable Discharge Details Chief Complaint: Headache Clinical Impression: Headache Primary Care Provider: Andrez Anthony ED Provider: Mikel Mayers Home Meds and New Rx's Prescriptions: No Action metoprolol tartrate 25 mg tablet 25 mg PO BID Qty: 180 RF: 4 prednisone 5 mg tablet 5 mg PO DAILY Qty: 90 RF: 3 cholecalciferol (vitamin D3) [Vitamin D3] 1,000 unit Capsule 1,000 unit PO DAILY RF: 0 B-complex with vitamin C [Super B Complex-Vitamin C] Tablet 1 tab PO DAILY RF: 0 coenzyme Q10 [CoQ-10] 100 mg Capsule 200 mg PO DAILY RF: 0 Discharge Instructions Instructions: General Headache (ED) Additional Instructions: follow up with your primary care provider within 1-2 weeks if you have new symptoms such as persistent vomit, fevers or feel more ill return to the emergency department you can take 1000mg tylenol and 600mg ibuprofen every 6 hours for pain as needed Medical Decision Making 82 yo female comes in with continued headache. She does have hx of intermittent headaches, was seen last week and had negative CT, and also had CTA done last September with her headache without aneurysm. She states she still has frontal headache with fevers or chills and denies any trauma or falls. Carmichael sn ofocal neuro deficits, normal appearing eyes with iop of 11. She was seen last week and felt better with migraine cocktail which I will order today and given continued pain obtian MRI venogram to eval for possible cerebral venous thrombosis. She has no fevers or meningismus to suggest musculoskeletal physiotherapist infection and headache is not worse of her life and slowly worsened so doubt sah pt feels better and labs are unremarkable, MRI unremarkable per Dr. Carney and pt refused to have MRV after discussion of risks and benefits of having it done and ruling out cavernous sinus thrombosis. She has capacity to make her own decisions and understands risks of not having this done and missing it including and disability and is willing to accept these risks. She continues to have no fevers and headache is gone so doubt musculoskeletal physiotherapist infection. She is requesting d/c and I will have her f/u with pcp and return precautions given Differential Diagnosis migraine, tension headache, cavernous sinus thrombosis Medical Records Medical records reviewed: Yes I reviewed the patient's medical records. Imaging Data Radiologic Study: Attestation: I personally reviewed and interpreted this imaging study as follows: Imaging: MRI Radiologist's impression: no acute findings Lab Data Lab results reviewed: Yes I reviewed the patient's lab results. HPI General Mode of arrival: ambulatory . Date/Time Provider Initiated Documentation: 10/04/18 12:56 . Limitations to Documentation: no limitations . Information obtained by: patient . History of Present Illness 82 year old F pr esents to the emergency department with the chief complaint of headache, described as moderate, Quality is described as aching, and is localized to the head. Patient started experiencing this day(s) (1) No relieving factors improve symptom(s), No exacerbating factors reported . Patient did receive the following treatments prior to arrival, none Related Data Home Medications Medication Instructions Recorded Confirmed metoprolol tartrate 25 mg tablet 25 mg PO BID #180 tab-cap 06/07/18 10/04/18 prednisone 5 mg PO DAILY #90 tab 09/21/18 10/04/18 B-complex with vitamin C [Super B 1 tab PO DAILY 10/04/18 10/04/18 Complex-Vitamin C] cholecalciferol (vitamin D3) 1,000 unit PO DAILY 10/04/18 10/04/18 [Vitamin D3] coenzyme Q10 [CoQ-10] 200 mg PO DAILY 10/04/18 10/04/18 Previous Rx's Medication Instructions Recorded metoprolol tartrate 25 mg tablet 25 mg PO BID #180 tab-cap 06/07/18 prednisone 5 mg PO DAILY #90 tab 09/21/18 Allergies Allergy/AdvReac Type Severity Reaction Status Date / Time carbamazepine AdvReac Severe Confusion Verified 10/04/18 13:04 and disorientation morphine AdvReac Intermediate made my Verified 10/04/18 13:04 chest feel likie I was in a vice General Stated Complaint: Headache HARSHAD: 3 Review of Systems Review of Systems All systems reviewed & are unremarkable except as noted in HPI and below Constitutional Denies chills and Denies fever(s) Cardiovascular Denies chest pain and Denies dyspnea Respiratory Denies dyspnea Gastrointestinal Denies abdominal pain, Denies nausea and Denies vomiting Integumentary/Breasts Denies rash [facility] Medical History (Updated 10/01/18 @ 12:08 by Jesisca Rushing MD) Atrial flutter (Chronic) Celiac disease (Chronic 06/12/13) Cortical cataract of left eye (Resolved) DVT (deep venous thrombosis) (Chronic) Epiretinal membrane (ERM) of left eye (Chronic) GERD (gastroesophageal reflux disease) History of pelvic fracture (Chronic) Nuclear sclerotic cataract of left eye (Resolved) Osteoarthritis Osteoporosis (Chronic) Paroxysmal atrial fibrillation Polymyalgia rheumatica Polymyalgia rheumatica (Resolved 08/14/14) Surgical History Cholecystectomy (~01/2007) Colonoscopy - MAC Hemorrhoidal Banding (04/27/17) Status post cataract extraction and insertion of intraocular lens of left eye (Chronic 05/02/18) Status post cataract extraction and insertion of intraocular lens of right eye (Chronic 05/16/18) Social History Smoking/Tobacco Use Status: Never Alcohol Intake: never Drug use: Never Substance use type: does not use current occupation: Cleaning Services Pets and animals: No What type of physical activity do you participate in: none Jennifer/Pentecostal: Yazidism Special jennifer needs: No Do you feel safe at home: Yes Do you feel safe in your relationship?: Yes Exam Const General: no acute distress Orientation: alert HENMT Head: normal to inspection Ears: external ears normal General nose exam: external nose normal Mouth: moist mucous membranes Eyes General: appearance normal, both eyes and all related structures Neck Neck: normal visual inspection Resp Effort & Inspection: normal respiratory effort and able to speak in complete sentences Cardio Rate: regular rate Skin General skin exam: no rashes or lesions noted Neuro General: alert and oriented x3 Extrem General: normal to inspection Psych Mental Status: mental status grossly normal Course Vital Signs Temperature 36.8 C 10/04/18 13:02 Pulse 82 10/04/18 13:02 Respiratory Rate 16 10/04/18 13:02 Blood Pressure 182/69 H 10/04/18 13:02 Pulse Oximetry 98 10/04/18 13:02 Temperature 36.7 C 10/04/18 13:16 Temperature Source Temporal Artery Scan 10/04/18 13:16 Pulse 77 10/04/18 13:16 Respiratory Rate 16 10/04/18 13:16 Blood Pressure 190/78 H 10/04/18 13:16 Blood Pressure Position Sitting 10/04/18 13:02 Pulse Oximetry 97 10/04/18 13:16 Oxygen Delivery Method Room Air 10/04/18 13:16 Oxygen Flow Rate 0 10/04/18 13:16 Pain Level 10 10/04/18 13:02
--- NOTE | 2018-10-04 13:35 | DI.MRI_ITS ---
SYMPTOMS/DIAGNOSIS: HEADACHES BRAIN MRI: MRI examination of the brain was performed according to the usual protocol. Examination is compared with previous examination of 02/17/18. Note is again made of changes of diffuse cerebral atrophy and bilateral areas of signal change predominantly involving periventricular white matter consistent with microvascular ischemic changes. There has been little overall change in appearance in comparison with the previous study. The orbital and temporal bone structures appear intact. There is normal flow void in the [place] vasculature. Susceptibility weighted imaging shows no evidence of intracranial hemorrhage. Diffusion weighted imaging shows no evidence of infarction. CONCLUSION: No evidence of acute intracranial process. Presumed microvascular ischemic changes of white matter, little interval change from 01/28/18.
[2018-10-04 13:45] LABS: Abs Immature Grans 0.02 k/cumm (0.0-0.09); Absolute Basophil Count 0.01 k/cumm (0.0-0.2); Absolute Eosinophil Count 0.01 k/cumm (0.0-0.7); Absolute Lymphocyte Count 1.05 k/cumm (1.2-3.4); Absolute Monocyte Count 0.36 k/cumm (0.11-0.7); Absolute Neutrophil Count 5.28 k/cumm (1.2-6.7); Basophils % 0.1; Eosinophils % 0.1; HCT 37.6 % (36.0-46.0); HGB 12.6 g/dL (12.0-15.5); Immature Grans % 0.3; Lymphocytes % 15.6; Mean Corp. HGB Concentration 33.5 g/dL (32.0-36.0); Mean Corpuscular Hemoglobin 28.6 pg (27.0-33.0); Mean Corpuscular Volume 85.5 fL (80-95); Mean Platelet Volume 10.1 fL (8.0-11.0); Monocytes % 5.3; Neutrophils % 78.6; Platelet Count 258 x1000/uL (130-400); RBC Distribution Width 13.2 % (11.7-14.6); White Blood Cell Count 6.73 k/cumm (4.4-10.8)
[2018-10-04 13:55] LABS: ALT 28 U/L (12-78); AST 21 U/L (15-37); Albumin 3.5 g/dL (3.4-5.0); Alkaline Phosphatase 94 U/L (46-116); BUN 15 mg/dL (7-18); Bilirubin, Total 0.4 mg/dL (0.2-1.0); CREATININE 0.85 mg/dL (0.55-1.02); Calcium 9.2 mg/dL (8.5-10.1); Chloride 95 mmol/L (98-107); Glucose 134 mg/dL (70-100); Magnesium 1.9 mg/dL (1.8-2.4); PTT Activated 21.4 sec (21.0-31.4); Potassium 4.4 mmol/L (3.5-5.1); Prothrombin Time 9.8 sec (9.3-11.0); Sodium 129 mmol/L (136-145); Total Protein 7.1 g/dL (6.4-8.2)
[2018-10-04] MEDS: Dexamethasone 10 MG/ML VIAL IVP (13:59)
[2018-10-04] MEDS: Ketorolac 15 MG/ML VIAL IVP (14:00)
[2018-10-04] MEDS: Prochlorperazine 10 MG/2 ML VIAL 5 MG IVP (14:00)
[2018-10-04] MEDS: Normal Saline 1,000 ML 1000 ML IV (14:00)
[2018-10-04 15:21] LABS: ESR 24 mm/hr (0-30)
[2018-10-04 15:27] VITALS: BP 183/70; PULSE 88; RESP 18; TEMP 36.3; O2SAT 97
[2018-10-04 16:41] VITALS: BP 188/76; PULSE 81; RESP 16; TEMP 36.9
--- NOTE | 2018-10-04 16:42 | NUR.NOTE ---
iv removed dc reviewed with pt and loved one ambulatory steady on dc md aware of vitals pt advised t f.u with primary md for further intervention Nursing Note:
== END 2018-10-04 16:49 | disposition home or self-care (01) ==
PROVIDERS: Emergency Provider Emergency Medicine; PCP Family Medicine
DX: R51 Headache (principal); R03.0 Elevated blood-pressure reading, without diagnosis of hypertension; Z53.29 Procedure and treatment not carried out because of patient's decision for other reasons; I48.0 Paroxysmal atrial fibrillation; I47.1 Supraventricular tachycardia
CPT/HCPCS: 0296T; 36415; 80053; 85652; 96374; 96375; 99284; 70551; 83735; 85025; 85610; 85730; J0780; J1100; J1885

== ENCOUNTER 2018-10-10 13:15 | Emergency (ER) | payer MEDICARE, OTHER, SELFPAY ==
[2018-10-10] VITALS (42 sets, daily range): BP systolic 133–200; BP diastolic 50–75; PULSE 75–89; RESP 11–23; TEMP 36.2; O2SAT 95–99
[2018-10-10] MEDS: Normal Saline 250 ML IV (14:29)
[2018-10-10] MEDS: methylPREDNISolone SUCC 125 MG VIAL IVP (14:29)
[2018-10-10] MEDS: Prochlorperazine 10 MG/2 ML VIAL 5 MG IVP (14:30)
--- NOTE | 2018-10-10 14:36 | ED.GENADUL_ITS ---
Discharge Plan Disposition Patient Disposition: HOME Condition: Stable Discharge Details Chief Complaint: Headache Clinical Impression: Headache, Chronic hyponatremia Primary Care Provider: Andrez Anthony ED Provider: Cliff Villalba Home Meds and New Rx's Prescriptions: New gabapentin 100 mg capsule 100 mg PO TID PRN (Reason: headache) Qty: 21 RF: 0 Continued metoprolol tartrate 25 mg tablet 25 mg PO BID Qty: 180 RF: 4 prednisone 5 mg tablet 5 mg PO DAILY Qty: 90 RF: 3 acetaminophen 500 mg Tablet 1,000 mg PO PRN PRNRF: 0 ibuprofen 200 mg Tablet 400 mg PO PRN PRNRF: 0 cholecalciferol (vitamin D3) [Vitamin D3] 1,000 unit Capsule 1,000 unit PO DAILY RF: 0 B-complex with vitamin C [Super B Complex-Vitamin C] Tablet 1 tab PO DAILY RF: 0 coenzyme Q10 [CoQ-10] 100 mg Capsule 200 mg PO DAILY RF: 0 Discharge Instructions Instructions: Hyponatremia (ED), General Headache (ED) Additional Instructions: Please return immediately to the emergency department if you develop any new or worsening symptoms or if you become otherwise concerned. It is extremely important that you call as soon as possible to make an appointment to be seen in follow-up for this visit by a neurologist, and also that you attend your scheduled appointment with Dr. Ledbetter on 10/12/18. Referrals: Andrez Anthony MD [Primary Care Provider] - Julissa Hope MD [ [facility] STAFF PHYSICIAN] - Discharge Data Discharge Date/Time-TO BE ENTERED AT DEPARTURE: 10/10/18 17:25 Medical Decision Making <Radha Arzate MD - Last Filed: 10/15/18 09:14> Colleen Rodriguez is an 82 y/o woman with history of atrial flutter on Coumadin, GI bleed in the past, migraine, hyponatremia, hypertension, GERD presenting to the emergency department with recurrent headache. On exam patient is well and nontoxic appearing. No meningismus. Nonfocal neurologic exam. Given recent laboratory/imaging evaluation for same headache, doubt acute emergent etiology. Exam/history not consistent with meningitis, encephalitis, subarachnoid hemorrhage, other intracranial hemorrhage, glaucoma, temporal arteritis. Doubt central venous thrombosis or other acute emergent intracranial pathology at this time. I do not believe that further imaging is indicated, other than MRV for rule out central venous thrombosis, although patient does not exhibit any overt symptoms of this other than persistent headache and she is also anticoagulated. Patient refuses MRV under any circumstance, even with sedation, verbalizes understanding of the risks. Plan for screening labs, IV Compazine, IV Solu- Medrol, IV fluids. Patient received IV medication, states that they did nothing states that headache is unchanged. I discussed the patient with Dr. Hope of neurology, who saw the patient in consultation 09/09, and also for chronic headaches 02/08. Dr. Hope recommends trial of 100mg gabapentin TID PRN, other than MRV if patient amenable no further imaging at this time, will see Pt is f/u for persistent COLLAZO. Patient given 100 mg gabapentin. Patient reports slight improvement in headache. Plan for occipital nerve block for further symptom relief. Patient is amenable to the plan. Occipital nerve block performed under usual sterile precautions, no complication, patient tolerated the procedure well. Labs show hyponatremia 129. Given chronic recurrent hyponatremia and patient with lack of symptoms other than headache plan for close outpatient follow-up. In anticipation of discharge, prior to my signout I had a lengthy discussion with the patient and her family regarding return to emergency department precautions, home care, importance of outpatient follow-up with her PCP within 48 hours. They verbalized understanding the plan and were amenable. All questions were answered. Patient signed out to Dr. Villalba at time of shift change with reassessment pending. Medical Records Medical records reviewed: Yes I reviewed the patient's medical records. Lab Data Lab results reviewed: Yes I reviewed the patient's lab results. Laboratory Tests Range/Units 10/10/18 10/10/18 14:30 14:30 WBC (4.4-10.8) k/cumm 6.88 RBC (4.00-5.20) m/cumm 4.16 Hgb (12.0-15.5) g/dL 12.1 Hct (36.0-46.0) % 36.0 MCV (80-95) fL 86.5 MCH (27.0-33.0) pg 29.1 MCHC (32.0-36.0) g/dL 33.6 RDW (11.7-14.6) % 13.9 Plt Count (130-400) x1000/uL 368 D MPV (8.0-11.0) fL 9.7 Immature Gran % 0.6 Neutrophils % 59.1 Lymphocytes % 26.9 Monocytes % 11.8 Eosinophils % 1.5 Basophils % 0.1 Absolute Neutrophils (1.2-6.7) k/cumm 4.07 Absolute Lymphocytes (1.2-3.4) k/cumm 1.85 Absolute Monocytes (0.11-0.7) k/cumm 0.81 H Absolute Eosinophils (0.0-0.7) k/cumm 0.10 Absolute Basophils (0.0-0.2) k/cumm 0.01 Sodium (136-145) mmol/L 129 L Potassium (3.5-5.1) mmol/L 4.1 Chloride (98-107) mmol/L 95 L Carbon Dioxide (21.0-32.0) mmol/L 24.6 Anion Gap (3-11) mmol/L 9.4 BUN (7-18) mg/dL 19 H Creatinine (0.55-1.02) mg/dL 0.86 Estimated GFR/1.73 m2 (mL/min/1.73m2) >= 60.00 Glucose (70-100) mg/dL 108 H Calcium (8.5-10.1) mg/dL 8.6 Total Bilirubin (0.2-1.0) mg/dL 0.4 AST (15-37) U/L 16 ALT (12-78) U/L 18 Alkaline Phosphatase (46-116) U/L 85 Total Protein (6.4-8.2) g/dL 6.8 Albumin (3.4-5.0) g/dL 3.4 ECG Data Attestation: I personally reviewed and interpreted this ECG (s) as follows: Interpretation: EKG shows sinus rhythm at 77, normal axis, no acute ischemic changes, nondiagnostic EKG <Cliff Villalba MD - Last Filed: 10/10/18 17:21> Received signout from Dr. Arzate. Please see her note regarding details of initial presentation, plan of care. Patient's headache improved to 1 out of 10. She is discharged home in improved condition as per the previous plan HPI <Radha Arzate MD - Last Filed: 10/15/18 09:14> General Mode of arrival: ambulatory . Date/Time Provider Initiated Documentation: 10/10/18 13:40 . Limitations to Documentation: no limitations . Information obtained by: patient, RN notes reviewed and old records reviewed . HPI Narrative: Colleen Rodriguez is an 82 y/o woman with h/o atrial flutter on Coumadin, polymyalgia rheumatica, hypertension, GERD, GI bleed in the past, migraine headaches presenting to the emergency department with headache. Patient reports that she has had headaches in the past that seemed improved over the past few months until August. Patient reports that she had headache in August that she was seen in the emergency department for concern to have hyponatremia, and was admitted. Patient reports that since then, she has had continued headaches. Pt reports that subsequent to her admission she has been seen twice in the emergency department for headache. Patient reports that headaches improve after receiving treatment in the emergency department, but remain at a low level and then gradually increase in severity. Patient reports that this is what happened since her last ED visit for headache. Record review shows that for her recent headaches, Pt has undergone head CT 09/18, head/neck CTA 09/25, LP 09/25, head CT 09/29, brain MRI 10/04. Pt was also supposed to have MRV for r/o CVT but she refused. Patient reports that her current headache is essentially been present since her last ED visit but was initially at a low level and has gotten worse since last night. No sudden worsening. Patient reports that severity is same as last 2 times she has been in the emergency department, she reports that this is not the worst headache of her life. Patient reports that headache is in the left frontal area and left top of her head, as it always is. She denies any other pain including neck pain, eye pain or back pain. Denies fever, vomiting, diarrhea, shortness of breath, cough, numbness, weakness, skin rash. Patient reports that she has been eating and drinking as usual. Patient states that she refused MRV because she hates being in the MRI machine and states that she will not undergo another MRI under any circumstance. Patient requests to have IV medications as were previously administered her earlier emergency department visits for same. Related Data Home Medications Medication Instructions Recorded Confirmed metoprolol tartrate 25 mg tablet 25 mg PO BID #180 tab-cap 06/07/18 10/12/18 prednisone 5 mg PO DAILY #90 tab 09/21/18 10/12/18 B-complex with vitamin C [Super B 1 tab PO DAILY 10/04/18 10/12/18 Complex-Vitamin C] cholecalciferol (vitamin D3) 1,000 unit PO DAILY 10/04/18 10/12/18 [Vitamin D3] coenzyme Q10 [CoQ-10] 200 mg PO DAILY 10/04/18 10/12/18 acetaminophen 1,000 mg PO PRN PRN 10/10/18 10/12/18 gabapentin 100 mg PO TID PRN #21 cap 10/10/18 10/12/18 ibuprofen 400 mg PO PRN PRN 10/10/18 10/12/18 Previous Rx's Medication Instructions Recorded metoprolol tartrate 25 mg tablet 25 mg PO BID #180 tab-cap 06/07/18 prednisone 5 mg PO DAILY #90 tab 09/21/18 gabapentin 100 mg PO TID PRN #21 cap 10/10/18 Allergies Allergy/AdvReac Type Severity Reaction Status Date / Time carbamazepine AdvReac Severe Confusion Verified 10/10/18 13:34 and disorientation morphine AdvReac Intermediate made my Verified 10/10/18 13:34 chest feel likie I was in a vice General Stated Complaint: Headache HARSHAD: 2 Review of Systems <Radha Arzate MD - Last Filed: 10/15/18 09:14> Review of Systems Constitutional: denies fevers Eyes: denies eye pain, visual changes ENT: denies facial pain, dental pain, sore throat Cardiovascular: denies chest pain, edema Respiratory: denies SOB, cough GI: denies abdominal pain, vomiting, diarrhea : denies flank pain MSK: denies back pain, neck pain, arthralgias, myalgias Skin: denies rash Neuro: denies numbness, weakness, reports headaches PFSH <Radha Arzate MD - Last Filed: 10/15/18 09:14> Medical History Atrial flutter (Chronic) Celiac disease (Chronic 06/12/13) Cortical cataract of left eye (Resolved) DVT (deep venous thrombosis) (Chronic) Epiretinal membrane (ERM) of left eye (Chronic) GERD (gastroesophageal reflux disease) History of pelvic fracture (Chronic) Nuclear sclerotic cataract of left eye (Resolved) Osteoarthritis Osteoporosis (Chronic) Paroxysmal atrial fibrillation Polymyalgia rheumatica Polymyalgia rheumatica (Resolved 08/14/14) Surgical History Cholecystectomy (~01/2007) Colonoscopy - MAC Hemorrhoidal Banding (04/27/17) Status post cataract extraction and insertion of intraocular lens of left eye (Chronic 05/02/18) Status post cataract extraction and insertion of intraocular lens of right eye (Chronic 05/16/18) Family History Mother No problems noted. Father Neoplasm Sister Neoplasm Social History Smoking/Tobacco Use Status: Never Alcohol Intake: never Drug use: Never Substance use type: does not use current occupation: Cleaning Services Pets and animals: No What type of physical activity do you participate in: none Jennifer/Protestant: [employer] Special jennifer needs: No Do you feel safe at home: Yes Do you feel safe in your relationship?: Yes Exam <Radha Arzate MD - Last Filed: 10/15/18 09:14> Narrative Exam Narrative: Constitutional: well and [id number], pleasant, conversing normally HENT: head atraumatic/normocephalic/normal inspection, mucous membranes moist, no tenderness to palpation of the temporal area or TMJ b/l, normal inspection of the scalp Eyes: conjunctiva normal, sclera normal, pupils 3mm b/l ERRLA, EOMI, no nystagmus Neck: no stridor, normal ROM, trachea midline, supple, nontender to palpation Chest: normal inspection Resp: normal work of breathing, LCTAB Cardio: normal rate, normal rhythm, no murmur appreciated GI: abdomen soft, non-tender, non-distended Back: normal inspection, no rash Skin: warm, dry, normal color, no rash Neuro: alert, not altered, motor 5 out of 5 all extremities, cranial nerves II through XII intact, normal tone Ext: no edema Psych: normal mood, normal affect, normal behavior Course <Radha Arzate MD - Last Filed: 10/15/18 09:14> Vital Signs Temperature 36.2 C L 10/10/18 13:27 Pulse 84 10/10/18 13:27 Respiratory Rate 16 08/19/19 13:27 Blood Pressure 200/66 H 10/10/18 13:27 Pulse Oximetry 99 10/10/18 13:27 Temperature 36.2 C L 10/10/18 13:27 Temperature Source Temporal Artery Scan 10/10/18 13:27 Pulse 84 10/10/18 13:27 Respiratory Rate 16 10/10/18 13:27 Respiratory Effort 10/10/18 13:41 Blood Pressure 200/66 H 10/10/18 13:27 Blood Pressure Position Sitting 10/10/18 13:27 Pulse Oximetry 99 10/10/18 13:27 Oxygen Delivery Method Room Air 10/10/18 13:27 Oxygen Flow Rate 0 10/10/18 13:27 Pain Level 10 10/10/18 13:44 Procedures <Radha Arzate MD - Last Filed: 10/15/18 09:14> Nerve Block Nerve Block 1: Time out performed: Yes Local Anesthetic: Lidocaine 1% and Bupivicaine 0.5% Amount of anesthesia used (mL): 4 Side: left and right Nerve Blocks: occipital Patient Tolerated Procedure: well and no complications Complications: none Additional Comments: 3ml lidocaine 1%, 1ml bupivicaine 0.5% together for total 4ml. 1ml injected each site. Sign Out <Radha Arzate MD - Last Filed: 10/15/18 09:14> Sign Out Data: Sign Out Comment: Pt signed out to Dr. Villalba at time of shift change with reassessment pending. Last updated by Radha Arzate MD at 10/10/18 16:59
[2018-10-10 14:43] LABS: Abs Immature Grans 0.04 k/cumm (0.0-0.09); Absolute Basophil Count 0.01 k/cumm (0.0-0.2); Absolute Lymphocyte Count 1.85 k/cumm (1.2-3.4); Absolute Monocyte Count 0.81 k/cumm (0.11-0.7); Absolute Neutrophil Count 4.07 k/cumm (1.2-6.7); Basophils % 0.1; Eosinophils % 1.5; HGB 12.1 g/dL (12.0-15.5); Immature Grans % 0.6; Lymphocytes % 26.9; Mean Corp. HGB Concentration 33.6 g/dL (32.0-36.0); Mean Corpuscular Hemoglobin 29.1 pg (27.0-33.0); Mean Corpuscular Volume 86.5 fL (80-95); Mean Platelet Volume 9.7 fL (8.0-11.0); Monocytes % 11.8; Neutrophils % 59.1; Platelet Count 368 x1000/uL (130-400); RBC 4.16 m/cumm (4.00-5.20); RBC Distribution Width 13.9 % (11.7-14.6); White Blood Cell Count 6.88 k/cumm (4.4-10.8)
[2018-10-10 15:01] LABS: ALT 18 U/L (12-78); AST 16 U/L (15-37); Albumin 3.4 g/dL (3.4-5.0); Alkaline Phosphatase 85 U/L (46-116); Anion Gap 9.4 mmol/L (3-11); BUN 19 mg/dL (7-18); Bilirubin, Total 0.4 mg/dL (0.2-1.0); CO2 24.6 mmol/L (21.0-32.0); CREATININE 0.86 mg/dL (0.55-1.02); Calcium 8.6 mg/dL (8.5-10.1); Chloride 95 mmol/L (98-107); Glucose 108 mg/dL (70-100); Potassium 4.1 mmol/L (3.5-5.1); Sodium 129 mmol/L (136-145); Total Protein 6.8 g/dL (6.4-8.2)
[2018-10-10] MEDS: Gabapentin 100 MG CAP PO (15:21)
== END 2018-10-10 17:25 | disposition home or self-care (01) ==
PROVIDERS: Student in an Organized Health Care Education/Training Program; Emergency Provider Emergency Medicine; PCP Family Medicine
DX: R51 Headache (principal); E87.1 Hypo-osmolality and hyponatremia; I10 Essential (primary) hypertension
CPT/HCPCS: 36415; 64405; 80053; 93005; 96361; 96374; 96375; 99284; 85025; 93010; J0780; J2930

== ENCOUNTER 2018-10-14 07:45 | Outpatient (CLI) | payer MEDICARE, OTHER, SELFPAY ==
--- NOTE | 2018-10-14 09:00 | DI.CT_ITS ---
SYMPTOM/DIAGNOSIS: 6 MO F/U OF PANCREATIC ABNORMALITY, SIADH, K86.[address]: CT scan of the abdomen and pelvis was performed following the uneventful administration of intravenous contrast material. Comparison is made with 05/20/18. Atelectatic changes are seen in the lung bases. The liver is normal in size. No evidence of a hepatic mass. The portal, superior mesenteric and splenic veins are patent. The patient is status post cholecystectomy. No biliary ductal dilatation is present. The 4 mm. hypodense lesion in the body of the pancreas is again seen and is unchanged in size compared to the previous examination. The remainder of the pancreas is unremarkable. The spleen and adrenal glands are unremarkable. The kidneys show normal and symmetric enhancement. No evidence of a solid renal mass or obstruction is identified. The urinary bladder is intact. The reproductive organs are unremarkable. There is atherosclerosis of the abdominal aorta but no aneurysmal dilatation is seen. No significant abdominal or pelvic adenopathy or pneumoperitoneum is present. There is a trace amount of free fluid in the pelvis. No significant abdominal or pelvic ascites is present. There does appear to be diverticulosis of the colon but no evidence of acute diverticulitis. There is stool seen throughout the colon which may represent constipation. The remainder of the bowel is unremarkable. No evidence of an acute appendicitis is present. There is a left convex scoliotic curvature of the thoracolumbar spine. Moderate degenerative changes are present throughout the lumbar spine. There is grade 1 pseudospondylolisthesis of L 3 on L 4. 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 There are again seen fractures of the right inferior and superior pubic rami and an old left sacral alar fracture. IMPRESSION: Stable 4 mm. hypodense, round lesion in the body of the pancreas. A follow up examination may be obtained in 6-12 months. No acute abdominal or pelvic process.
[2018-10-14] MEDS: Omnipaque 350 MG/ML 100 ML BTL IJ (09:11)
[2018-10-14] MEDS: Omnipaque 350 MG/ML 50 ML BTL PO (09:16)
[2018-10-14] MEDS: Breeza Beverage 473 ML BTL PO ×2 (09:16→09:17)
== END 2018-10-14 08:05 ==
PROVIDERS: PCP Family Medicine; Visit Provider Internal Medicine
DX: K86.89 Other specified diseases of pancreas (principal); K59.00 Constipation, unspecified; K57.30 Diverticulosis of large intestine without perforation or abscess without bleeding
CPT/HCPCS: 74177; J3490; Q9967

== ENCOUNTER → 2018-10-18 10:45 | Outpatient (BNVA) | payer MEDICARE, OTHER, SELFPAY | PROVIDERS: PCP Family Medicine; Visit Provider Psychiatry & Neurology Neurology | DX: G43.019 Migraine without aura, intractable, without status migrainosus (principal); G31.84 Mild cognitive impairment of uncertain or unknown etiology | CPT/HCPCS: 99214; J1885; J2550; 96372 ==

== ENCOUNTER 2018-10-28 03:47 | Outpatient (CLI) | payer MEDICARE, OTHER, SELFPAY ==
[2018-10-28 09:16] LABS: Abs Immature Grans 0.06 k/cumm (0.0-0.09); Absolute Basophil Count 0.03 k/cumm (0.0-0.2); Absolute Eosinophil Count 0.34 k/cumm (0.0-0.7); Absolute Lymphocyte Count 2.14 k/cumm (1.2-3.4); Absolute Monocyte Count 1.24 k/cumm (0.11-0.7); Absolute Neutrophil Count 5.43 k/cumm (1.2-6.7); Basophils % 0.3; Eosinophils % 3.7; HCT 36.1 % (36.0-46.0); Immature Grans % 0.6; Lymphocytes % 23.2; Mean Corp. HGB Concentration 33.2 g/dL (32.0-36.0); Mean Corpuscular Hemoglobin 29.2 pg (27.0-33.0); Mean Corpuscular Volume 87.8 fL (80-95); Mean Platelet Volume 9.9 fL (8.0-11.0); Monocytes % 13.4; Neutrophils % 58.8; Platelet Count 296 x1000/uL (130-400); RBC 4.11 m/cumm (4.00-5.20); RBC Distribution Width 15.6 % (11.7-14.6); White Blood Cell Count 9.24 k/cumm (4.4-10.8)
[2018-10-28 09:56] LABS: INR 0.9 (0.9-1.1); Prothrombin Time 9.3 sec (9.3-11.0)
[2018-10-28 10:29] LABS: ALT 139 U/L (14-59); AST 70 U/L (15-37); Albumin 3.4 g/dL (3.4-5.0); Alkaline Phosphatase 122 U/L (46-116); Anion Gap 8.1 mmol/L (3-11); BUN 20 mg/dL (7-18); Bilirubin, Direct 0.07 mg/dL (0.00-0.20); Bilirubin, Total 0.3 mg/dL (0.2-1.0); C-Reactive Protein 0.18 mg/dL (0.0-0.3); CO2 27.9 mmol/L (21.0-32.0); CREATININE 1.06 mg/dL (0.55-1.02); Calcium 9.2 mg/dL (8.5-10.1); Chloride 98 mmol/L (98-107); Estimated GFR 49.63 (mL/min/1.73m2); Glucose 86 mg/dL (70-100); Potassium 3.9 mmol/L (3.5-5.1); Sodium 134 mmol/L (136-145); Total Protein 6.4 g/dL (6.4-8.2)
== END 2018-10-28 04:07 ==
PROVIDERS: Internal Medicine; PCP Family Medicine; Visit Provider Family Medicine
DX: R50.9 Fever, unspecified (principal); B35.1 Tinea unguium; M25.50 Pain in unspecified joint; E22.2 Syndrome of inappropriate secretion of antidiuretic hormone; I48.91 Unspecified atrial fibrillation; Z79.01 Long term (current) use of anticoagulants
CPT/HCPCS: 36415; 80053; 80076; 85025; 85610; 86140

== ENCOUNTER 2018-10-31 08:51 | Outpatient (CLI) | payer MEDICARE, OTHER, SELFPAY | END 2018-10-31 09:11 | PROVIDERS: PCP Family Medicine; Referring Provider Family Medicine; Visit Provider Student in an Organized Health Care Education/Training Program | DX: I48.0 Paroxysmal atrial fibrillation (principal); I47.1 Supraventricular tachycardia | CPT/HCPCS: 0298T ==

== ENCOUNTER 2018-11-02 01:13 | Outpatient (CLI) | payer MEDICARE, OTHER, SELFPAY ==
[2018-11-02 13:32] LABS: ALT 54 U/L (14-59); AST 23 U/L (15-37); Albumin 3.6 g/dL (3.4-5.0); Alkaline Phosphatase 102 U/L (46-116); Anion Gap 9.3 mmol/L (3-11); BUN 11 mg/dL (7-18); Bilirubin, Total 0.3 mg/dL (0.2-1.0); CO2 25.7 mmol/L (21.0-32.0); Calcium 8.8 mg/dL (8.5-10.1); Chloride 99 mmol/L (98-107); Glucose 107 mg/dL (70-100); Potassium 4.9 mmol/L (3.5-5.1); Sodium 134 mmol/L (136-145); Total Protein 6.7 g/dL (6.4-8.2)
[2018-11-03 11:12] LABS: HBs Antibody, Qual Negative; HBs Antibody, Quant <3.1 mIU/mL; Hepatitis B Core Antibody Negative (NEGAT); Hepatitis B surface Ag Negative (NEGAT); Hepatitis C Ab w Rflx HCV PCR Negative (NEGAT)
== END 2018-11-02 01:33 ==
PROVIDERS: PCP Family Medicine; Visit Provider Internal Medicine
DX: E22.2 Syndrome of inappropriate secretion of antidiuretic hormone (principal); Z86.19 Personal history of other infectious and parasitic diseases; Z11.59 Encounter for screening for other viral diseases
CPT/HCPCS: 36415; 80053; 86704; 86706; 86803; 87340

== ENCOUNTER 2018-11-16 01:28 | Outpatient (CLI) | payer MEDICARE, OTHER, SELFPAY ==
[2018-11-16 10:46] LABS: Prothrombin Time 9.7 sec (9.3-11.0)
[2018-11-16 11:03] LABS: ALT 22 U/L (14-59); AST 19 U/L (15-37); Albumin 2.3 g/dL (3.4-5.0); Alkaline Phosphatase 98 U/L (46-116); Anion Gap 8.1 mmol/L (3-11); BUN 18 mg/dL (7-18); Bilirubin, Total 0.3 mg/dL (0.2-1.0); CO2 24.9 mmol/L (21.0-32.0); CREATININE 1.04 mg/dL (0.55-1.02); Calcium 8.7 mg/dL (8.5-10.1); Chloride 99 mmol/L (98-107); Estimated GFR 50.73 (mL/min/1.73m2); Glucose 106 mg/dL (70-100); Potassium 5.1 mmol/L (3.5-5.1); Sodium 132 mmol/L (136-145); Total Protein 6.5 g/dL (6.4-8.2)
== END 2018-11-16 01:48 ==
PROVIDERS: PCP Family Medicine; Visit Provider Internal Medicine
DX: E22.2 Syndrome of inappropriate secretion of antidiuretic hormone (principal); I48.0 Paroxysmal atrial fibrillation; Z79.01 Long term (current) use of anticoagulants
CPT/HCPCS: 36415; 80053; 85610

== ENCOUNTER 2018-11-24 01:24 | Outpatient (CLI) | payer MEDICARE, OTHER, SELFPAY ==
[2018-11-24 09:41] LABS: Abs Immature Grans 0.08 k/cumm (0.0-0.09); Absolute Eosinophil Count 0.29 k/cumm (0.0-0.7); Absolute Lymphocyte Count 1.65 k/cumm (1.2-3.4); Absolute Monocyte Count 0.95 k/cumm (0.11-0.7); Basophils % 0.3; Eosinophils % 2.4; HCT 38.4 % (36.0-46.0); HGB 12.7 g/dL (12.0-15.5); Immature Grans % 0.7; Lymphocytes % 13.8; Mean Corp. HGB Concentration 33.1 g/dL (32.0-36.0); Mean Corpuscular Volume 90.6 fL (80-95); Mean Platelet Volume 9.9 fL (8.0-11.0); Neutrophils % 74.8; Platelet Count 285 x1000/uL (130-400); RBC 4.24 m/cumm (4.00-5.20); RBC Distribution Width 15.4 % (11.7-14.6); White Blood Cell Count 11.93 k/cumm (4.4-10.8)
[2018-11-24 09:42] LABS: Absolute Basophil Count 0.04 k/cumm (0.0-0.2); Absolute Neutrophil Count 8.92 k/cumm (1.2-6.7)
[2018-11-24 10:47] LABS: ALT 19 U/L (14-59); AST 20 U/L (15-37); Albumin 3.5 g/dL (3.4-5.0); Alkaline Phosphatase 87 U/L (46-116); Anion Gap 8.3 mmol/L (3-11); BUN 17 mg/dL (7-18); Bilirubin, Total 0.3 mg/dL (0.2-1.0); CO2 27.7 mmol/L (21.0-32.0); CREATININE 0.96 mg/dL (0.55-1.02); Calcium 8.8 mg/dL (8.5-10.1); Chloride 99 mmol/L (98-107); Estimated GFR 55.64 (mL/min/1.73m2); Glucose 96 mg/dL (70-100); Magnesium 2.3 mg/dL (1.8-2.4); Potassium 4.5 mmol/L (3.5-5.1); Sodium 135 mmol/L (136-145); Total Protein 6.7 g/dL (6.4-8.2)
== END 2018-11-24 01:44 ==
PROVIDERS: PCP Family Medicine; Visit Provider Internal Medicine
DX: R50.9 Fever, unspecified (principal); E87.1 Hypo-osmolality and hyponatremia; E83.42 Hypomagnesemia
CPT/HCPCS: 36415; 80053; 83735; 85025

== ENCOUNTER 2018-12-14 00:57 | Outpatient (CLI) | payer MEDICARE, OTHER, SELFPAY ==
[2018-12-14 09:15] LABS: Abs Immature Grans 0.03 k/cumm (0.0-0.09); Absolute Basophil Count 0.02 k/cumm (0.0-0.2); Absolute Eosinophil Count 0.39 k/cumm (0.0-0.7); Absolute Lymphocyte Count 2.32 k/cumm (1.2-3.4); Absolute Monocyte Count 0.85 k/cumm (0.11-0.7); Absolute Neutrophil Count 4.21 k/cumm (1.2-6.7); Basophils % 0.3; HCT 38.8 % (36.0-46.0); HGB 12.6 g/dL (12.0-15.5); Immature Grans % 0.4; Lymphocytes % 29.7; Mean Corp. HGB Concentration 32.5 g/dL (32.0-36.0); Mean Corpuscular Hemoglobin 29.6 pg (27.0-33.0); Mean Corpuscular Volume 91.3 fL (80-95); Mean Platelet Volume 10.6 fL (8.0-11.0); Monocytes % 10.9; Neutrophils % 53.7; Platelet Count 212 x1000/uL (130-400); RBC 4.25 m/cumm (4.00-5.20); White Blood Cell Count 7.82 k/cumm (4.4-10.8)
[2018-12-14 11:21] LABS: ESR 11 mm/hr (0-30)
[2018-12-14 13:06] LABS: ALT 20 U/L (14-59); AST 17 U/L (15-37); Albumin 3.3 g/dL (3.4-5.0); Alkaline Phosphatase 81 U/L (46-116); Anion Gap 9.8 mmol/L (3-11); BUN 9 mg/dL (7-18); Bilirubin, Total 0.3 mg/dL (0.2-1.0); CO2 26.2 mmol/L (21.0-32.0); CREATININE 1.11 mg/dL (0.55-1.02); Calcium 8.5 mg/dL (8.5-10.1); Chloride 97 mmol/L (98-107); Estimated GFR 46.94 (mL/min/1.73m2); Glucose 89 mg/dL (70-100); Potassium 4.2 mmol/L (3.5-5.1); Sodium 133 mmol/L (136-145)
== END 2018-12-14 01:17 ==
PROVIDERS: PCP Family Medicine; Visit Provider Internal Medicine
DX: R50.9 Fever, unspecified (principal); M35.3 Polymyalgia rheumatica; E22.2 Syndrome of inappropriate secretion of antidiuretic hormone; R51 Headache
CPT/HCPCS: 36415; 80053; 85652; 85025

== ENCOUNTER 2019-01-04 12:47 | Outpatient (CLI) | payer MEDICARE, OTHER, SELFPAY ==
[2019-01-04 14:51] LABS: ALT 27 U/L (14-59); AST 25 U/L (15-37); Albumin 3.8 g/dL (3.4-5.0); Alkaline Phosphatase 94 U/L (46-116); Anion Gap 9.9 mmol/L (3-11); BUN 16 mg/dL (7-18); Bilirubin, Total 0.3 mg/dL (0.2-1.0); CO2 26.1 mmol/L (21.0-32.0); CREATININE 0.94 mg/dL (0.55-1.02); Chloride 99 mmol/L (98-107); Estimated GFR 56.87 (mL/min/1.73m2); Glucose 110 mg/dL (70-100); Potassium 4.4 mmol/L (3.5-5.1); Sodium 135 mmol/L (136-145); TSH (W/Ref FT4) 1.54 uIU/mL (0.36-3.74); Total Protein 7.2 g/dL (6.4-8.2)
== END 2019-01-04 13:07 ==
PROVIDERS: PCP Family Medicine; Visit Provider Internal Medicine
DX: G31.84 Mild cognitive impairment of uncertain or unknown etiology (principal); F07.81 Postconcussional syndrome; E83.42 Hypomagnesemia; E22.2 Syndrome of inappropriate secretion of antidiuretic hormone
CPT/HCPCS: 36415; 80053; 82533; 83735; 84443

== ENCOUNTER 2019-03-21 11:31 | Outpatient (CLI) | payer MEDICARE, OTHER, SELFPAY ==
[2019-03-21 12:07] LABS: Abs Immature Grans 0.05 k/cumm (0.0-0.09); Absolute Basophil Count 0.02 k/cumm (0.0-0.2); Absolute Eosinophil Count 0.07 k/cumm (0.0-0.7); Absolute Lymphocyte Count 1.02 k/cumm (1.2-3.4); Absolute Monocyte Count 0.33 k/cumm (0.11-0.7); Absolute Neutrophil Count 7.67 k/cumm (1.2-6.7); Basophils % 0.2; Eosinophils % 0.8; HCT 39.5 % (36.0-46.0); HGB 13.1 g/dL (12.0-15.5); Immature Grans % 0.5 %; Lymphocytes % 11.1; Mean Corp. HGB Concentration 33.2 g/dL (32.0-36.0); Mean Corpuscular Hemoglobin 29.2 pg (27.0-33.0); Mean Corpuscular Volume 88.2 fL (80-95); Mean Platelet Volume 10.4 fL (8.0-11.0); Monocytes % 3.6; Neutrophils % 83.8; Platelet Count 267 x1000/uL (130-400); RBC 4.48 m/cumm (4.00-5.20); RBC Distribution Width 13.1 % (11.7-14.6); White Blood Cell Count 9.16 k/cumm (4.4-10.8)
[2019-03-21 12:17] LABS: Prothrombin Time 9.9 sec (9.3-11.0)
[2019-03-21 13:13] LABS: ALT 20 U/L (14-59); AST 28 U/L (15-37); Albumin 3.6 g/dL (3.4-5.0); Alkaline Phosphatase 88 U/L (46-116); Anion Gap 11.1 mmol/L (3-11); BUN 17 mg/dL (7-18); Bilirubin, Total 0.2 mg/dL (0.2-1.0); C-Reactive Protein 0.08 mg/dL (0.0-0.3); CO2 25.9 mmol/L (21.0-32.0); CREATININE 1.09 mg/dL (0.55-1.02); Calcium 8.5 mg/dL (8.5-10.1); Chloride 97 mmol/L (98-107); Estimated GFR 47.94 (mL/min/1.73m2); Glucose 117 mg/dL (74-106); Potassium 4.4 mmol/L (3.5-5.1); Sodium 134 mmol/L (136-145); Total Protein 6.8 g/dL (6.4-8.2)
[2019-03-21 13:30] LABS: ESR 26 mm/hr (0-30)
== END 2019-03-21 11:51 ==
PROVIDERS: PCP Family Medicine; Visit Provider Internal Medicine
DX: R50.9 Fever, unspecified (principal); K81.9 Cholecystitis, unspecified; M35.3 Polymyalgia rheumatica; M25.50 Pain in unspecified joint; I48.91 Unspecified atrial fibrillation; Z79.01 Long term (current) use of anticoagulants
CPT/HCPCS: 36415; 80053; 85652; 85025; 85610; 86140

== ENCOUNTER 2019-05-03 17:12 | Inpatient (IN) | payer MEDICARE, OTHER, SELFPAY ==
[2019-05-03] VITALS (48 sets, daily range): BP systolic 130–188; BP diastolic 46–100; PULSE 82–115; RESP 9–32; TEMP 36.6–37; O2SAT 89–98
--- NOTE | 2019-05-03 17:15 | DI.RAD_ITS ---
EXAM: XR FEMUR RT CLINICAL HISTORY: Fall, R hip pain. TECHNIQUE: 2D digital imaging was performed. COMPARISON: CT ABDOMEN PELVIS W from 10/14/2018 XR HIP RT COMPLETE AP PELVIS from 05/03/2019 FINDINGS: The exam is limited by a large amount of overlying clothing and or sheets. There is a fracture seen through the subcapital region of the proximal femur. The hip joint space is well maintained. The di stal portions of the femur are unremarkable. There are old fractures of the right superior and infer ior pubic rami. IMPRESSION: Acute subcapital fracture of the right femur with minimal displacement. DATA REPOSITORY: RADIATION DOSE DELIVERED:
--- NOTE | 2019-05-03 17:15 | DI.RAD_ITS ---
EXAM: XR CHEST 1V IN DI DEPT CLINICAL HISTORY: Fall, rt hip pain TECHNIQUE: 2D digital imaging was performed. COMPARISON: XR CHEST 2V PA LATERAL from 09/21/2018 FINDINGS: HEART: The heart size is normal. The aorta shows calcification. MEDIASTINUM: Normal. There is minimal blunting at the left costophrenic angle. The left diaphragm is slightly elevated. No rib fractures are visible. IMPRESSION: Minimal blunting at the left costophrenic angle could represent a tiny effusion versus atelectasis. No rib fractures or pneumothorax are visible. DATA REPOSITORY: RADIATION DOSE DELIVERED:
--- NOTE | 2019-05-03 17:16 | DI.RAD_ITS ---
EXAM: XR HIP RT COMPLETE AP PELVIS INDICATION: R hip pain after fall. COMPARISON: XR hip RT complete AP pelvis from 11/04/2017 TECHNIQUE: 2D digital imaging was performed. FINDINGS: There is an acute fracture of the subcapital region of the right femur. There is some impaction and mild angulation. Old fractures are seen of the right superior inferior pubic rami. The hip joint s pace is well maintained. There is some acetabular spurring. Vascular calcifications are incidentall y noted. IMPRESSION: Acute subcapital fracture of the right femur. DATA REPOSITORY: RADIATION DOSE DELIVERED:
--- NOTE | 2019-05-03 17:18 | ED.GENADUL_ITS ---
Discharge Plan Disposition Patient Disposition: [facility] INPATIENT Condition: Stable Discharge Details Chief Complaint: Orthopedic Clinical Impression: Closed right hip fracture Primary Care Provider: Andrez Anthony ED Provider: Cliff Villalba Home Meds and New Rx's Prescriptions: No Action esomeprazole magnesium [Nexium] 40 mg capsule,delayed release(DR/EC) 40 mg PO DAILY PRNRF: 0 prednisone 5 mg tablet 7.5 mg PO DAILY Qty: 135 RF: 3 metoprolol tartrate 25 mg tablet 25 mg PO BID Qty: 180 RF: 4 acetaminophen 500 mg Tablet 1,000 mg PO PRN PRNRF: 0 cholecalciferol (vitamin D3) [Vitamin D3] 1,000 unit Capsule 1,000 unit PO DAILY RF: 0 B-complex with vitamin C [Super B Complex-Vitamin C] Tablet 1 tab PO DAILY RF: 0 coenzyme Q10 [CoQ-10] 100 mg Capsule 200 mg PO DAILY RF: 0 Medical Decision Making 83-year-old female presents from home. She slipped and fell while trying to get the mail striking her right hip on the ground with resultant pain. She has a history of polymyalgia rheumatica for which she is maintained on chronic prednisone. She arrives to the ER via EMS. On exam she is tender overlying the right l ateral hip and the leg is held in flexion. Concern for acute right hip fracture and patient given small aliquot of fentanyl and referred for screening laboratories and radiographs. Patient with a right femoral neck fracture. Discussed with Dr. Freire who requested CT scan for preoperative planning. Patient to be admitted to Dr. Daley. Case also discussed with Christina Ibrahim, nurse minibus driver who will consult for regional anesthesia. ECG Data Attestation: I personally reviewed and interpreted this ECG (s) as follows: Interpretation: Normal sinus rhythm with a rate of 89, QRS is narrow, no ST segment elevation present. HPI General Mode of arrival: EMS . Date/Time Provider Initiated Documentation: 05/03/19 17:29 . Limitations to Documentation: no limitations . Information obtained by: EMS . History of Present Illness 83 year old F presents to the emergency department with the chief complaint of Fall on icy ground, right hip pain, described as moderate, Quality is described as dull and constant, and is localized to the right and lower extremity. Patient reports no radiation. Patient started experiencing this minute(s) and it has been constant. Rest improves symptom(s), Movement worsens symptoms . Patient notes no other symptoms.. Patient did receive the following treatments prior to arrival, none Related Data Home Medications Medication Instructions Recorded Confirmed metoprolol tartrate 25 mg tablet 25 mg PO BID #180 tab-cap 06/07/18 05/03/19 B-complex with vitamin C [Super B 1 tab PO DAILY 10/04/18 05/03/19 Complex-Vitamin C] cholecalciferol (vitamin D3) 1,000 unit PO DAILY 10/04/18 05/03/19 [Vitamin D3] coenzyme Q10 [CoQ-10] 200 mg PO DAILY 10/04/18 05/03/19 acetaminophen 1,000 mg PO PRN PRN 10/10/18 05/03/19 esomeprazole magnesium 40 mg 40 mg PO DAILY PRN cap 01/04/19 04/18/19 capsule,delayed release prednisone 5 mg tablet 7.5 mg PO DAILY #135 tab 04/18/19 05/03/19 Previous Rx's Medication Instructions Recorded metoprolol tartrate 25 mg tablet 25 mg PO BID #180 tab-cap 06/07/18 prednisone 5 mg tablet 7.5 mg PO DAILY #135 tab 04/18/19 Allergies Allergy/AdvReac Type Severity Reaction Status Date / Time carbamazepine AdvReac Severe Confusion Verified 05/03/19 17:17 and disorientation morphine AdvReac Intermediate made my Verified 05/03/19 17:17 chest feel likie I was in a vice General Stated Complaint: Orthopedic HARSHAD: 3 Review of Systems Narrative: 6 systems reviewed and otherwise negative. Denies loss of conscious. No chest pain. No premonitory symptoms. [facility] Medical History Atrial flutter (Chronic) paroxysmal, Atrial fib/flutter, rate controlled, not on anticoagulation. Zio Patch ordered. Celiac disease (Chronic 06/12/13) Cortical cataract of left eye (Resolved) DVT (deep venous thrombosis) (Chronic) s/p hemorrhoid banding Epiretinal membrane (ERM) of left eye (Chronic) GERD (gastroesophageal reflux disease) History of pelvic fracture (Chronic) Nuclear sclerotic cataract of left eye (Resolved) Osteoarthritis Osteoporosis (Chronic) Paroxysmal atrial fibrillation Polymyalgia rheumatica Polymyalgia rheumatica (Resolved 08/14/14) Spinal stenosis (Acute) Surgical History Cholecystectomy (~01/2007) Colonoscopy - MAC Hemorrhoidal Banding (04/27/17) Status post cataract extraction and insertion of intraocular lens of left eye (Chronic 05/02/18) Status post cataract extraction and insertion of intraocular lens of right eye (Chronic 05/16/18) Family History Mother No problems noted. 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 Services Pets and animals: No What type of physical activity do you participate in: none Jennifer/Pentecostalism: [employer]regation Special jennifer needs: No Do you feel safe at home: Yes Do you feel safe in your relationship?: Yes Exam Narrative Exam Narrative: GEN: awake, alert, oriented 3. Pleasant, well groomed, interactive. HEAD: Normocephalic, atraumatic ENT: Mucous membranes moist, oropharynx unremarkable, External ear exam unremarkable EYES: PERRL, EOMI NECK: Full ROM, no ALENA, no menigismus CHEST/RESP: Nontender, clear to auscultation bilateral, no wheeze/rhonchi/rales CARDIOVASCULAR: RRR, no murmur, rub kem. 2+ Rad pulse bilateral ABDOMEN: Soft, nontender, no mass. +Bowel sounds EXT: Right lateral hip pain with palpation. 2+ dorsalis pedis pulse bilaterally. Distal sensation and motor intact. The right leg is held in internal rotation and slight flexion Neuro: Grossly normal neurologic exam, conversant, interactive. Psych: Speech fluent, thoughts congruent, affect normal Course Vital Signs Vital signs: Vital Signs Temperature 36.9 C 05/03/19 17:07 Pulse 89 05/03/19 17:07 Respiratory Rate 18 05/03/19 17:07 Blood Pressure 176/73 H 05/03/19 17:07 Pulse Oximetry 98 05/03/19 17:07 Temperature 36.9 C 05/03/19 17:07 Temperature Source Skin 05/03/19 17:07 Pulse 89 05/03/19 17:07 Respiratory Rate 18 05/03/19 17:07 Blood Pressure 176/73 H 05/03/19 17:07 Blood Pressure Position Supine 05/03/19 17:07 Pulse Oximetry 98 05/03/19 17:07 Oxygen Delivery Method Room Air 05/03/19 17:07 Oxygen Flow Rate 0 05/03/19 17:07 Pain Level 7 05/03/19 17:07
[2019-05-03] MEDS: fentaNYL 100 MCG/2 ML VIAL 25 MCG IVP ×4 (17:33→21:37)
[2019-05-03 17:37] LABS: Abs Immature Grans 0.09 k/cumm (0.0-0.09); Absolute Basophil Count 0.01 k/cumm (0.0-0.2); Absolute Eosinophil Count 0.07 k/cumm (0.0-0.7); Absolute Monocyte Count 0.79 k/cumm (0.11-0.7); Absolute Neutrophil Count 7.16 k/cumm (1.2-6.7); Basophils % 0.1; Eosinophils % 0.7; HCT 40.4 % (36.0-46.0); HGB 13.7 g/dL (12.0-15.5); Immature Grans % 0.9 %; Lymphocytes % 15.6; Mean Corp. HGB Concentration 33.9 g/dL (32.0-36.0); Mean Corpuscular Hemoglobin 29.2 pg (27.0-33.0); Mean Corpuscular Volume 86.1 fL (80-95); Mean Platelet Volume 10.1 fL (8.0-11.0); Monocytes % 8.2; Neutrophils % 74.5; Platelet Count 274 x1000/uL (130-400); RBC 4.69 m/cumm (4.00-5.20); RBC Distribution Width 13.7 % (11.7-14.6); White Blood Cell Count 9.62 k/cumm (4.4-10.8)
[2019-05-03 18:25] LABS: ALT 23 U/L (14-59); AST 30 U/L (15-37); Albumin 3.5 g/dL (3.4-5.0); Alkaline Phosphatase 90 U/L (46-116); Anion Gap 7.7 mmol/L (3-11); BUN 17 mg/dL (7-18); Bilirubin, Total 0.2 mg/dL (0.2-1.0); CO2 27.3 mmol/L (21.0-32.0); CREATININE 1.15 mg/dL (0.55-1.02); Calcium 8.7 mg/dL (8.5-10.1); Chloride 98 mmol/L (98-107); Estimated GFR 45.06 (mL/min/1.73m2); Glucose 111 mg/dL (74-106); Potassium 3.7 mmol/L (3.5-5.1); Sodium 133 mmol/L (136-145); Total Protein 7.1 g/dL (6.4-8.2)
--- NOTE | 2019-05-03 18:58 | DI.VRAD_ITS ---
PROCEDURE INFORMATION: Exam: XR Chest, 1 View Exam date and time: 05/03/2019 6:46 PM Age: 83 years old Clinical indication: Pain; Other: S/P fall TECHNIQUE: Imaging protocol: XR of the chest Views: 1 view. COMPARISON: No relevant prior studies available. FINDINGS: Lungs: Normal pulmonary expansion. Pulmonary vasculature grossly normal. No infiltrates. Pleural space: No pleural effusion. Minimal scarring or atelectasis in the left lateral costophrenic angle. No pneumothorax. Heart/Mediastinum: Heart size normal. No tracheal/mediastinal shift. Diaphragm: Mild elevation of the left hemidiaphragm. Vasculature: Mild aortic ectasia/tortuosity and moderate calcific atherosclerosis. Bones/joints: No acute osseous abnormalities are identified. IMPRESSION: 1. No acute thoracic process. No rib fractures or pneumothorax are identified radiographically. If there is strong suspicion for rib fractures, rib detail views may be helpful. 2. Mild elevation of the left hemidiaphragm noted with some minimal density in the left lateral costophrenic angle likely representing mild atelectasis or scarring. Dictated and Authenticated by: Andrez Paul MD. Ordering:RISA Coronado MD
--- NOTE | 2019-05-03 19:01 | DI.VRAD_ITS ---
PROCEDURE INFORMATION: Exam: XR Right Hip with Pelvis when Performed Exam date and time: 05/03/2019 6:41 PM Age: 83 years old Clinical indication: Patient HX: S/P fall on ice severe right hip pain TECHNIQUE: Imaging protocol: XR Right hip with pelvis when performed. Views: 2 or 3 views. COMPARISON: CR XR hip RT complete AP pelvis 11/04/2017 10:51 AM FINDINGS: Bones/joints: Diffuse osteopenia. There is a right femoral neck fracture extending from the medial midcervical distribution to the lateral subcapital distribution, with suspected mild 3-4 mm impaction laterally and mild associated valgus angulation. Suboptimal visualization due to incomplete internal rotation of the hip for the AP view. No gross intertrochanteric extension. Chronic healed fractures of the right superior and inferior pubic rami and right parasymphyseal pubis again noted. Right femoral head is well seated in the acetabulum. Hip joint spaces are well maintained. No radiographic evidence to suggest transient osteoporosis or avascular necrosis. No blastic or lytic lesions. The visualized SI joints, pubic symphysis, and sacrum/pelvis were unremarkable. Soft tissues: Unremarkable. Vasculature: Moderate calcific atherosclerosis. IMPRESSION: 1. Acute right femoral neck fracture as detailed above. 2. Chronic fractures of the right pubis. 3. Osteopenia. Dictated and Authenticated by: Andrez Paul MD. Ordering:RISA Coronado MD
[2019-05-03] MEDS: Normal Saline 1,000 ML 150 ML IV (19:02)
--- NOTE | 2019-05-03 19:04 | DI.VRAD_ITS ---
PROCEDURE INFORMATION: Exam: XR Right Femur Exam date and time: 05/03/2019 6:44 PM Age: 83 years old Clinical indication: Patient HX: Right hip pain S/P fall. TECHNIQUE: Imaging protocol: XR Right femur. Views: 2 views. COMPARISON: No relevant prior studies available. FINDINGS: Bones/joints: Diffuse osteopenia. Right femoral neck fracture again noted, please see right hip x-ray report for further details. No fractures are identified in the mid or distal femur. No dislocation. No blastic or lytic lesions. No periostitis or osteolysis. The hip joint spacee is well-maintained. The knee joint spaces are grossly well-maintained. The visualized pelvis and acetabulum demonstrate no acute abnormality. Chronic fractures in the right pubis again noted. Soft tissues: See Vasculature Finding. Vasculature: Moderate calcific atherosclerosis. No radiopaque foreign bodies. IMPRESSION: 1. There is an acute fracture of the right femoral neck. No inter trochanteric extension. Please see right hip x-ray report for further details. 2. No fractures in the mid or distal right femur. Chronic healed fractures in the right pubis. 3. Diffuse osteopenia. Dictated and Authenticated by: Andrez Paul MD. Ordering:RISA Coronado MD
--- NOTE | 2019-05-03 19:46 | W.PM.HP.N ---
Date of service: 05/03/19 Time of Service: 19:47 Assessment and Plan Assessment and plan (1) Hip fracture: Status: Acute Assessment and plan: Hip fracture. Will await block, prn pain meds. NPO after MN and maintenance IVF. Regarding prednisone use I see no need for stress doses given low dose of steroids and no hemodynamic compromise. Usual meds as is otherwise. As above requests DNR. History of Present Illness History of Present Illness Chief Complaint: hip fracture Narrative: 83 female mechanical fall, lost her footing, fell on right side in back yard. Initially numb, since pain. In ER hip fracture noted. Patient given Fentanyl with good pain relief, orthopedics consulted and requested CT for operative planning. DIRECTOR [employer]PERIMENT[employer]IC[employer] en route for block. Note that-patient on prednisone taper for PMR, currently at 7.5 mg/day. Not on bisphosphonate prophylaxis. Note also h/o PAF, not on anti-coagulation. Reviewed advance directives, requests DNR. Review of Systems All systems reviewed & are unremarkable except as noted in HPI and below PFSH Medical History Atrial flutter (Chronic) paroxysmal, Atrial fib/flutter, rate controlled, not on anticoagulation. Zio Patch ordered. Celiac disease (Chronic 06/12/13) Cortical cataract of left eye (Resolved) DVT (deep venous thrombosis) (Chronic) s/p hemorrhoid banding Epiretinal membrane (ERM) of left eye (Chronic) GERD (gastroesophageal reflux disease) History of pelvic fracture (Chronic) Nuclear sclerotic cataract of left eye (Resolved) Osteoarthritis Osteoporosis (Chronic) Paroxysmal atrial fibrillation Polymyalgia rheumatica Polymyalgia rheumatica (Resolved 08/14/14) Spinal stenosis (Acute) Surgical History Cholecystectomy (~01/2007) Colonoscopy - MAC Hemorrhoidal Banding (04/27/17) Status post cataract extraction and insertion of intraocular lens of left eye (Chronic 05/02/18) Status post cataract extraction and insertion of intraocular lens of right eye (Chronic 05/16/18) Family History Mother No problems noted. 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 [employer] Pets and animals: No What type of physical activity do you participate in: none Jennifer/Buddhist: Yarsanism Special jennifer needs: No Do you feel safe at home: Yes Do you feel safe in your relationship?: Yes Meds Home Medications and Allergies Home Medications Medication Instructions Recorded Confirmed Type metoprolol tartrate 25 mg tablet 25 mg PO BID #180 tab-cap 06/07/18 05/03/19 Rx B-complex with vitamin C [Super B 1 tab PO DAILY 10/04/18 05/03/19 History Complex-Vitamin C] cholecalciferol (vitamin D3) 1,000 unit PO DAILY 10/04/18 05/03/19 History [Vitamin D3] coenzyme Q10 [CoQ-10] 200 mg PO DAILY 10/04/18 05/03/19 History acetaminophen 1,000 mg PO PRN PRN 10/10/18 05/03/19 History esomeprazole magnesium 40 mg 40 mg PO DAILY PRN cap 01/04/19 04/18/19 History capsule,delayed release prednisone 5 mg tablet 7.5 mg PO DAILY #135 tab 04/18/19 05/03/19 Rx Allergies Allergy/AdvReac Type Severity Reaction Status Date / Time carbamazepine AdvReac Severe Confusion Verified 05/03/19 17:17 and disorientation morphine AdvReac Intermediate made my Verified 05/03/19 17:17 chest feel likie I was in a vice Exam Narrative Exam Narrative: 176/73, 89, 18, 36.9. HEENT atraumatic; neck supple; lungs clear; heart RRR w/o MRG; abdomen sofft and NT; extremities RLE somewhat everted, not foreshortened. Feet cool but pedal pulses intact. Results CXR no acute disease, EKG WNL Labs Result diagrams: 05/03/19 17:30 05/03/19 18:05 Labs: Laboratory Results - last 24 hr 05/03/19 05/03/19 05/03/19 17:30 17:40 18:05 WBC 9.62 RBC 4.69 Hgb 13.7 Hct 40.4 MCV 86.1 MCH 29.2 MCHC 33.9 RDW 13.7 Plt Count 274 MPV 10.1 Immature Gran % 0.9 Neutrophils % 74.5 Lymphocytes % 15.6 Monocytes % 8.2 Eosinophils % 0.7 Basophils % 0.1 Absolute Neutrophils 7.16 H Absolute Lymphocytes 1.50 Absolute Monocytes 0.79 H Absolute Eosinophils 0.07 Absolute Basophils 0.01 Sodium 133 L Potassium 3.7 Chloride 98 Carbon Dioxide 27.3 Anion Gap 7.7 BUN 17 Creatinine 1.15 H Estimated GFR/1.73 m2 45.06 Glucose 111 H Calcium 8.7 Total Bilirubin 0.2 AST 30 ALT 23 Alkaline Phosphatase 90 Total Protein 7.1 Albumin 3.5 Patient ABO/Rh O Positive Antibody Screen Negative Last Vital Signs Temp 36.9 C 05/03/19 17:07 Pulse 89 05/03/19 17:07 Resp 18 05/03/19 17:07 BP 176/73 H 05/03/19 17:07 Pulse Ox 98 05/03/19 17:07
[2019-05-03 21:07] LABS: Bilirubin Negative (Negative); Blood Trace-intact (Negative); Clarity Clear (Clear); Glucose Negative (Negative); Ketones Negative (Negative); Leukocyte Esterase Negative (Negative); Nitrite Negative (Negative); Specific Gravity 1.015 (1.005-1.025); Urobilinogen 0.2 EU/dL (Up TO 0.2)
[2019-05-03 21:20] LABS: Epithelial Cells Rare HPF (Negative); RBC 0-2 HPF (0-2); WBC 0-2 HPF (0-5)
[2019-05-03 21:21] LABS: Bacteria Rare HPF (Negative); C & S Indicated? No; Casts Negative LPF (Negative); Crystals Negative HPF (Negative); Mucus Negative (Negative)
--- NOTE | 2019-05-03 21:30 | DI.CT_ITS ---
EXAM: CT LOWER EXTREMITY RT WO CLINICAL HISTORY: R hip pain, operative planning. TECHNIQUE: Imaging Protocol: Axial computed tomography images with coronal and sagittal reformatted images were created and reviewed. CONTRAST MATERIAL: None COMPARISON: XR HIP RT COMPLETE AP PELVIS from 05/03/2019 FINDINGS: There is a fracture seen extending through the subcapital region of the femoral neck. There is some impaction seen laterally. There is no significant displacement. There is mild angulation. No aceta bular fracture is seen. There are old fractures of the right superior and inferior pubic ramus. The bones appear osteopenic. No significant surrounding hematoma is seen. There is a small amount of a ir in the anterior soft tissues. IMPRESSION: Mildly angulated mildly impacted subcapital fracture of the right femur. DATA REPOSITORY: All CT scans at this facility are submitted to the National Radiology Data Registry (NRDR) Dose Index Registry (DIR) with the [employer] (A[employer]). RADIATION OPTIMIZATION: All CT scans at this facility use at least one of these dose optimization te chniques: automated exposure control; mA and/or kV adjustment per patient size (includes targeted exa ms where dose is matched to clinical indication); or iterative reconstruction.
[2019-05-03] MEDS: ACETAMINOPHEN 1,000 MG/100 ML BTL 400 MG IVPB (21:31)
--- NOTE | 2019-05-03 21:44 | DI.VRAD_ITS ---
PROCEDURE INFORMATION: Exam: CT Right Lower Extremity Without Contrast, Hip Exam date and time: 05/03/2019 7:15 PM Age: 83 years old Clinical indication: Pain; Hip; Right; Additional info: Right hip pain, operative planning TECHNIQUE: Imaging protocol: CT of the Right lower extremity without contrast was performed. Exam focused on the hip. Radiation optimization: All CT scans at this facility use at least one of these dose optimization techniques: automated exposure control; mA and/or kV adjustment per patient size (includes targeted exams where dose is matched to clinical indication); or iterative reconstruction. COMPARISON: CR XR HIP RT COMPLETE AP PELVIS 05/03/2019 6:41 PM FINDINGS: Bones/joints: Osteopenia. There is a transversely oriented fracture of the right femoral neck extending from the mid cervical distribution in the medial cortex to the subcapital distribution in the lateral cortex, with about 6 mm impaction along the lateral margin of the fracture interface producing mild valgus angulation. No intertrochanteric extension. No acute pelvic/acetabular fractures are identified. Old healed fractures of the right superior and inferior pubic rami and right parasymphyseal pubis are noted. No dislocation. Hip joint space and articular surfaces are grossly well-maintained. No radiographic evidence to suggest transient osteoporosis or avascular necrosis. No blastic or lytic lesions. No evidence of traumatic diastasis at the pubic symphysis. Soft tissues: No soft tissue hematoma. Small amount of air in the subcutaneous tissues anterior to the hip but no foreign bodies or associated fluid collections. IMPRESSION: 1. Right femoral neck fracture as detailed above. No intertrochanteric extension. No pelvic/acetabular acute fractures are identified although there are chronic fractures in the right pubis. 2. No soft tissue hematoma. Dictated and Authenticated by: Andrez Paul MD. Ordering:RISA Coronado MD
[2019-05-03] MEDS: Ondansetron 4 MG/2 ML VIAL IVP (22:09)
[2019-05-03 22:36] LABS: Acetaminophen 61 ug/mL (10-30)
[2019-05-03] MEDS: Ibuprofen 600 MG TAB PO (23:19)
[2019-05-03] MEDS: Metoprolol 25 MG TAB PO (23:51)
[2019-05-03] MEDS: diphenhydrAMINE 25 MG CAP PO (23:51)
[2019-05-04] VITALS (46 sets, daily range): BP systolic 104–179; BP diastolic 42–69; PULSE 64–90; RESP 11–22; TEMP 36.4–36.7; O2SAT 88–99
[2019-05-04] MEDS: Normal Saline Flush 10 ML SYR IVP ×2 (00:41→08:31)
[2019-05-04] MEDS: Normal Saline 1,000 ML 150 ML IV ×2 (02:17→08:42)
[2019-05-04] MEDS: Ibuprofen 600 MG TAB PO ×2 (04:38→14:22)
[2019-05-04] MEDS: fentaNYL 100 MCG/2 ML VIAL 25 MCG IVP ×2 (05:55→08:29)
--- NOTE | 2019-05-04 09:36 | W.PM.PROGNOT ---
Date of Service Date of service: 05/04/19 Time of Service: 09:36 Assessment and Plan Assessment and plan (1) Closed right hip fracture: Status: Acute Assessment and plan: Medically cleared for ORIF of her right hip this morning. Case discussed with Dr. Sagar Freire. Qualifiers: Encounter type: initial encounter Qualified Code(s): S72.001A - Fracture of unspecified part of neck of right femur, initial encounter for closed fracture (2) PMR (polymyalgia rheumatica): Status: Chronic Assessment and plan: Patient will remain on her current dose of prednisone 7.5 mg daily. The night hospitalist did not feel it necessary to give her stress dose steroids for the operation. I discussed the case with Dr. Sagar Freire who indicated that he is not been giving stress dose corticosteroids with the patient is been on stable low-dose prednisone. We will monitor her for now if she has any symptoms of hypotension I will give her IV hydrocortisone. (3) Atrial flutter: Status: Chronic Assessment and plan: Her atrial flutter/atrial fibrillation is paroxysmal. Patient previously been anticoagulated in the remote past but not recently. She will maintain her Lopressor for rate control. We will monitor heart rhythm perioperatively. Qualifiers: Atrial flutter type: unspecified Qualified Code(s): I48.92 - Unspecified atrial flutter Subjective Subjective Interval history since last seen: 83-year-old female with history of polymyalgia rheumatica paroxysmal atrial fibrillation and GERD who presented after mechanical fall sustaining a fracture to her right hip. She denies a loss of consciousness. Patient is admitted for ORIF of her right hip fracture. Other than her history of PAF she denies any history of coronary artery disease or CHF or COPD. She denies any diabetes mellitus or strokes. She has no symptoms of exertional chest pain or pressure or palpitations. Preop EKG showed normal sinus rhythm with no ischemic ST or T wave changes. Patient is medically stable and acceptable candidate for ORIF of her right hip fracture Exam Narrative Exam Narrative: Elderly female alert and oriented person place time circumstance. Neck is supple without JVD normal carotid pulses no bruits. Lungs are clear to auscultation. Heart is regular rate and rhythm without murmur rub or gallop. Abdomen is soft and nontender with normal active bowel sounds no organomegaly no palpable masses no bruits. Right hip is tender to palpation. She has no calf tenderness or swelling no pedal edema. Objective Objective Clinical Data: Abnormal lab results 05/03/19 05/03/19 05/03/19 Range/Units 17:30 18:05 20:50 Absolute Neutrophils 7.16 H (1.2-6.7) k/cumm Absolute Monocytes 0.79 H (0.11-0.7) k/cumm Sodium 133 L (136-145) mmol/L Creatinine 1.15 H (0.55-1.02) mg/dL Glucose 111 H (74-106) mg/dL Urine Blood Trace-intact H (Negative) Acetaminophen (10-30) ug/mL 05/03/19 Range/Units 21:50 Absolute Neutrophils (1.2-6.7) k/cumm Absolute Monocytes (0.11-0.7) k/cumm Sodium (136-145) mmol/L Creatinine (0.55-1.02) mg/dL Glucose (74-106) mg/dL Urine Blood (Negative) Acetaminophen 61 H (10-30) ug/mL Vital Signs Temperature 36.7 C 05/04/19 00:12 Temperature Source Temporal Artery Scan 05/04/19 00:12 Pulse 75 05/04/19 08:01 Pulse Rhythm Regular 05/04/19 08:30 Pulse 95 H 05/03/19 21:46 Respiratory Rate 18 05/04/19 00:12 Respiratory Effort Non-Labored 05/04/19 08:30 Respiratory Depth Normal 05/04/19 08:30 Respiratory Pattern Normal 05/04/19 08:30 Blood Pressure 137/67 05/04/19 08:01 Blood Pressure Mean 84 05/04/19 08:01 Blood Pressure Position Supine 05/03/19 22:20 Pulse Oximetry 94 L 05/04/19 08:01 Oxygen Delivery Method Nasal Cannula 05/04/19 06:16 Oxygen Flow Rate 2 05/04/19 06:16 Pain Level 5 05/04/19 09:00 Comment 05/03/19 21:42 Intake & Output 05/03/19 05/03/19 05/04/19 11:59 23:59 11:59 Intake Total 797.5 / 797.5 1410.0 / 1410.0 Output Total 1000 / 1000 425 / 425 Balance -202.5 / -202.5 985.0 / 985.0 Weight 65.1 kg 62.4 kg Intake: IV 707.5 / 707.5 1365.0 / 1365.0 Oral / 45 / 45 Output: Urine 1000 / 1000 425 / 425 Other: Urine Color Pale Yellow Urine Appearance Clear Laboratory Results WBC 9.62 k/cumm (4.4-10.8) 05/03/19 17:30 RBC 4.69 m/cumm (4.00-5.20) 05/03/19 17:30 Hgb 13.7 g/dL (12.0-15.5) 05/03/19 17:30 Hct 40.4 % (36.0-46.0) 05/03/19 17:30 MCV 86.1 fL (80-95) 05/03/19 17:30 MCH 29.2 pg (27.0-33.0) 05/03/19 17:30 MCHC 33.9 g/dL (32.0-36.0) 05/03/19 17:30 RDW 13.7 % (11.7-14.6) 05/03/19 17:30 Plt Count 274 x1000/uL (130-400) 05/03/19 17:30 MPV 10.1 fL (8.0-11.0) 05/03/19 17:30 Immature Gran % 0.9 % 05/03/19 17:30 Neutrophils % 74.5 05/03/19 17:30 Lymphocytes % 15.6 05/03/19 17:30 Monocytes % 8.2 05/03/19 17:30 Eosinophils % 0.7 05/03/19 17:30 Basophils % 0.1 05/03/19 17:30 Absolute Neutrophils 7.16 k/cumm (1.2-6.7) H 05/03/19 17:30 Absolute Lymphocytes 1.50 k/cumm (1.2-3.4) 05/03/19 17:30 Absolute Monocytes 0.79 k/cumm (0.11-0.7) H 05/03/19 17:30 Absolute Eosinophils 0.07 k/cumm (0.0-0.7) 05/03/19 17:30 Absolute Basophils 0.01 k/cumm (0.0-0.2) 05/03/19 17:30 Sodium 133 mmol/L (136-145) L 05/03/19 18:05 Potassium 3.7 mmol/L (3.5-5.1) 05/03/19 18:05 Chloride 98 mmol/L (98-107) 05/03/19 18:05 Carbon Dioxide 27.3 mmol/L (21.0-32.0) 05/03/19 18:05 Anion Gap 7.7 mmol/L (3-11) 05/03/19 18:05 BUN 17 mg/dL (7-18) 05/03/19 18:05 Creatinine 1.15 mg/dL (0.55-1.02) H 05/03/19 18:05 Estimated GFR/1.73 m2 45.06 (mL/min/1.73m2) 05/03/19 18:05 Glucose 111 mg/dL (74-106) H 05/03/19 18:05 Calcium 8.7 mg/dL (8.5-10.1) 05/03/19 18:05 Total Bilirubin 0.2 mg/dL (0.2-1.0) 05/03/19 18:05 AST 30 U/L (15-37) 05/03/19 18:05 ALT 23 U/L (14-59) 05/03/19 18:05 Alkaline Phosphatase 90 U/L (46-116) 05/03/19 18:05 Total Protein 7.1 g/dL (6.4-8.2) 05/03/19 18:05 Albumin 3.5 g/dL (3.4-5.0) 05/03/19 18:05 Urine Color Yellow (Yellow) 05/03/19 20:50 Urine Clarity Clear (Clear) 05/03/19 20:50 Urine pH 7.0 (5-8) 05/03/19 20:50 Ur Specific [place] 1.015 (1.005-1.025) 05/03/19 20:50 Urine Protein Negative mg/dL (Negative) 05/03/19 20:50 Urine Ketones Negative mg/dL (Negative) 05/03/19 20:50 Urine Blood Trace-intact (Negative) H 05/03/19 20:50 Urine Nitrite Negative (Negative) 05/03/19 20:50 Urine Bilirubin Negative (Negative) 05/03/19 20:50 Urine Urobilinogen 0.2 EU/dL (Up TO 0.2) 05/03/19 20:50 Ur Leukocyte Esterase Negative (Negative) 05/03/19 20:50 Urine RBC 0-2 HPF (0-2) 05/03/19 20:50 Urine WBC 0-2 HPF (0-5) 05/03/19 20:50 Ur Epithelial Cells Rare HPF (Negative) 05/03/19 20:50 Urine Crystals Negative HPF (Negative) 05/03/19 20:50 Urine Bacteria Rare HPF (Negative) 05/03/19 20:50 Urine Casts Negative LPF (Negative) 05/03/19 20:50 Urine Mucus Negative (Negative) 05/03/19 20:50 Ur Culture Indicated? No 05/03/19 20:50 Urine Glucose Negative mg/dL (Negative) 05/03/19 20:50 Acetaminophen 61 ug/mL (10-30) H 05/03/19 21:50 Patient ABO/Rh O Positive 05/03/19 17:40 Antibody Screen Negative 05/03/19 17:40
--- NOTE | 2019-05-04 11:11 | OCONE_ITS ---
Date of service: 05/04/19 Time of Service: 07:30 History of Present Illness History of Present Illness Chief Complaint: Right hip pain Narrative: Chief Complaint: Right hip pain HPI: 83-year-old female status post slip and fall at home to right side. Sudden onset, severe right hip pain. Unable bear weight. Brought to emergency depart ment found to have right hip impacted fracture. Otherwise community ambulator. Denies any pre-existing right hip pain or symptoms. Does relate significant what sounds like lumbar stenosis of right lower extremity sciatica radiculopathy and has been treated with spinal injections. PMH: A flutter not on any anticoagulation. Normal sinus rhythm today. History DVT. Polymyalgia rheumatica on chronic prednisone 7.5 mg daily. allergies: Carbamazepine and morphine have side effects of confusion and disorientation FH: non-contributory SH: hand dominance: Right occupation: Retired smoke cigarettes: No Consult Reason Right hip fracture Assessment and Plan Assessment and plan (1) Closed right hip fracture: Status: Acute Assessment and plan: 83-year-old female with acute right valgus impacted femoral neck fracture Thorough discussion with the patient and her son about the injury pattern and treatment options including percutaneous cannulated screw fixation versus hip arthroplasty at this time. Patient was counseled regarding pain management, expected postoperative course, and recovery timeline. I expressed my concerns that her chronic prednisone use may make her fracture high risk for nonunion or avascular necrosis or other failure. Despite these concerns, the patient and her son would like to proceed with internal fixation, which I think is reasonable given the fracture pattern and minimal posterior angulation comminution on the CT scan. I roughly ballpark the risk of failure somewhere around 20% requiring revision to hip arthroplasty months in the future. The risks, benefits, and alternatives were thoroughly discussed. All their questions were answered. Informed consent was obtained from the patient. Both agree and understand treatment plan. Discussed with attending medical hospitalist who does not feel there is any medical contraindication to proceed with hip surgery today Postoperative plan Right lower extremity weightbearing as tolerated with assist device Physical therapy Out of bed Pain control- multimodal SCDs and AKIN hose bilateral lower extremity Lovenox 40 mg daily x 30 days postop for DVT prophylaxis starting 24 hours postoperative after checking hemoglobin, which is probably recommended over aspirin therapy patient is high risk given history of DVT Keep dressings in place and clean and dry until follow-up Discuss with primary medical team postoperatively Plan to see the patient postoperative day #1 tomorrow for evaluation Call me directly if any questions or concerns Qualifiers: Encounter type: initial encounter Qualified Code(s): S72.001A - Fracture of unspecified part of neck of right femur, initial encounter for closed fracture Review of Systems Constitutional Constitutional: Denies fever(s) and Reports headache(s) Eyes Eyes: Denies diplopia and Denies loss of vision ENT Ears, Nose, Mouth, and Throat: Denies dental pain, Reports headache(s) and Denies other (cavities) Cardiovascular Cardiovascular: Denies chest pain with activity, Denies irregular heart rhythm and Denies dyspnea Respiratory Respiratory: Denies cough and Denies dyspnea Gastrointestinal Gastrointestinal: Denies nausea and Denies vomiting Musculoskeletal Musculoskeletal: Reports as per HPI Integumentary/Breasts Skin/Breast: Denies rash and Denies wounds Neurologic Neurologic: Reports as per HPI, Reports headache(s) and Denies loss of vision Psychiatric Psychiatric: Denies anxiety and Denies depression Hematologic/Lymphatic Hematologic/Lymphatic: Denies easy bleeding and Denies easy bruising Allergic/Immunologic Allergic/Immunologic: Reports as per HPI [facility] Medical History Atrial flutter (Chronic) paroxysmal, Atrial fib/flutter, rate controlled, not on anticoagulation. Zio Patch ordered. Celiac disease (Chronic 06/12/13) Cortical cataract of left eye (Resolved) DVT (deep venous thrombosis) (Chronic) s/p hemorrhoid banding Epiretinal membrane (ERM) of left eye (Chronic) GERD (gastroesophageal reflux disease) History of pelvic fracture (Chronic) Nuclear sclerotic cataract of left eye (Resolved) Osteoarthritis Osteoporosis (Chronic) Paroxysmal atrial fibrillation Polymyalgia rheumatica Polymyalgia rheumatica (Resolved 08/14/14) Spinal stenosis (Acute) Surgical History Cholecystectomy (~01/2007) Colonoscopy - MAC Hemorrhoidal Banding (04/27/17) Status post cataract extraction and insertion of intraocular lens of left eye (Chronic 05/02/18) Status post cataract extraction and insertion of intraocular lens of right eye (Chronic 05/16/18) Family History Mother No problems noted. 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 Services Pets and animals: No What type of physical activity do you participate in: none Jennifer/Congregational: Sikh Special jennifer needs: No Do you feel safe at home: Yes Do you feel safe in your relationship?: Yes Exam Const General: cooperative, comfortable and no acute distress Orientation: alert, awake and not confused Limitations: mental status not altered and no language barrier HENMT Head: normocephalic and atraumatic Neck Neck: normal visual inspection and full ROM Resp Effort & Inspection: normal respiratory effort, able to speak in complete sentences, no audible wheezes and no grunting General: deferred Skin General skin exam: no rashes or lesions noted Neuro General: patient alert, patient awake and patient oriented x3 Cognition: normal cognition Speech: speech normal Extrem Other: Demonstrates full active range of motion bilateral upper extremities left lower extremity without difficulty or deformity present Right hip: Tenderness to palpation over bony landmarks. Unable demonstrate straight leg raise. Did not test with axial load or logroll. Psych Appearance: grossly normal Mental Status: mental status grossly normal Speech and Movement: speech and movement normal Affect: normal affect Attitude: cooperative Results Last Vital Signs Temp 98.4 F 05/03/19 17:07 Pulse 98 H 05/03/19 20:46 Resp 10 L 05/03/19 20:50 BP 155/65 H 05/03/19 20:46 Pulse Ox 94 L 05/03/19 20:50 Labs Result diagrams: 05/03/19 17:30 05/03/19 18:05 Labs: Laboratory Results - last 24 hr 05/03/19 05/03/19 05/03/19 17:30 17:40 18:05 WBC 9.62 RBC 4.69 Hgb 13.7 Hct 40.4 MCV 86.1 MCH 29.2 MCHC 33.9 RDW 13.7 Plt Count 274 MPV 10.1 Immature Gran % 0.9 Neutrophils % 74.5 Lymphocytes % 15.6 Monocytes % 8.2 Eosinophils % 0.7 Basophils % 0.1 Absolute Neutrophils 7.16 H Absolute Lymphocytes 1.50 Absolute Monocytes 0.79 H Absolute Eosinophils 0.07 Absolute Basophils 0.01 Sodium 133 L Potassium 3.7 Chloride 98 Carbon Dioxide 27.3 Anion Gap 7.7 BUN 17 Creatinine 1.15 H Estimated GFR/1.73 m2 45.06 Glucose 111 H Calcium 8.7 Total Bilirubin 0.2 AST 30 ALT 23 Alkaline Phosphatase 90 Total Protein 7.1 Albumin 3.5 Urine Color Urine Clarity Urine pH Ur Specific Ren[place]rew Urine Protein Urine Ketones Urine Blood Urine Nitrite Urine Bilirubin Urine Urobilinogen Ur Leukocyte Esterase Urine RBC Urine WBC Ur Epithelial Cells Urine Crystals Urine Bacteria Urine Casts Urine Mucus Ur Culture Indicated? Urine Glucose Patient ABO/Rh O Positive Antibody Screen Negative 05/03/19 20:50 WBC RBC Hgb Hct MCV MCH MCHC RDW Plt Count MPV Immature Gran % Neutrophils % Lymphocytes % Monocytes % Eosinophils % Basophils % Absolute Neutrophils Absolute Lymphocytes Absolute Monocytes Absolute Eosinophils Absolute Basophils Sodium Potassium Chloride Carbon Dioxide Anion Gap BUN Creatinine Estimated GFR/1.73 m2 Glucose Calcium Total Bilirubin AST ALT Alkaline Phosphatase Total Protein Albumin Urine Color Yellow Urine Clarity Clear Urine pH 7.0 Ur Specific Ren[place]rew 1.015 Urine Protein Negative Urine Ketones Negative Urine Blood Trace-intact H Urine Nitrite Negative Urine Bilirubin Negative Urine Urobilinogen 0.2 Ur Leukocyte Esterase Negative Urine RBC 0-2 Urine WBC 0-2 Ur Epithelial Cells Rare Urine Crystals Negative Urine Bacteria Rare Urine Casts Negative Urine Mucus Negative Ur Culture Indicated? No Urine Glucose Negative Patient ABO/Rh Antibody Screen Imaging EKG: report reviewed Imaging Studies: Right hip and femur x-rays as well as report independently reviewed: Significant for valgus impacted femoral neck fracture with minimal angulation lateral view no other deformity the femur CT right hip images reviewed: Minimal comminution or posterior angulation. On the axial view the femoral neck is well aligned. Consistent with valgus impacted femoral neck fracture.
--- NOTE | 2019-05-04 11:11 | PHA.ADMREV ---
Pharmacy Clinical Review - Admission Clinical Review (Last Reviewed 05/04/19 @ 11:06 by Sagar Freire MD) Hip fracture (Acute) Closed right hip fracture (Acute) carbamazepine Adverse Reaction (Severe, Verified 05/03/19 17:17) Confusion and disorientation morphine Adverse Reaction (Intermediate, Verified 05/03/19 17:17) made my chest feel likie I was in a vice Height 5 ft 3 in Weight 62.4 kg - Renal Dosing Renal Dosing: BUN 17 mg/dL (7-18) 05/03/19 18:05 Creatinine 1.15 mg/dL (0.55-1.02) H 05/03/19 18:05 Medications needing adjustments: Reviewed - Anticoagulation Anticoagulation: Hgb 13.7 g/dL (12.0-15.5) 05/03/19 17:30 Hct 40.4 % (36.0-46.0) 05/03/19 17:30 Plt Count 274 x1000/uL (130-400) 05/03/19 17:30 Creatinine 1.15 mg/dL (0.55-1.02) H 05/03/19 18:05 DVT Prohphylaxis: N/A Therapeutic Anticoagulation: N/A (Pt denies) - Opiate Usage Evaluate Pain Scale/Pains Meds: Reviewed Scheduled Bowel Reg ordered if on Opiates?: No (will notify MD post-op) - Relevant Labs Sodium 133 mmol/L (136-145) L 05/03/19 18:05 Potassium 3.7 mmol/L (3.5-5.1) 05/03/19 18:05 Chloride 98 mmol/L (98-107) 05/03/19 18:05 Electrolytes, C-Reactive P, ESR: Reviewed (Pt states she has been anticoagulated in the past but not recently) - Antimicrobial Stewardship Antibiotic appropriateness: Reviewed Surgical Abx d/c within 24 hr: No (Orders haven't been entered yet -- will monitor) Culture review/Resistance: N/A - DM Control DM Control: Glucose 111 mg/dL (74-106) H 05/03/19 18:05 Insulin Dosing: N/A - Heart Failure/AK EF%, JOSE J's, B-Blockers, Diuretics: Reviewed (Atrial flutter -- will monitor heart rhythm post-op) - BP Control BP Control: Blood Pressure 137/67 Blood Pressure 131/47 Blood Pressure 137/47 Blood Pressure 113/61 Blood Pressure 132/55 Blood Pressure 125/54 Blood Pressure 119/53 Blood Pressure 117/51 Blood Pressure 125/56 If elevated: Reviewed - QTc Review If Elevated: Reviewed (QTc 392) - IV to PO Switch IV Medications: Reviewed - Home Meds Home Med List reviewed: Reviewed - Current meds Current Medication Order Review: Reviewed (Hip to being repaired in OR today)
[2019-05-04] MEDS: Lactated Ringers 1,000 ML 30 ML IV (11:16)
[2019-05-04] MEDS: ceFAZolin 2 GM/50 ML BAG IVPB (11:43)
--- NOTE | 2019-05-04 12:35 | DI.RAD_ITS ---
EXAM: XR HIP RT IN OR CLINICAL HISTORY: Fracture of Right Hip. TECHNIQUE: 2D and realtime digital imaging was performed. COMPARISON: XR HIP RT COMPLETE AP PELVIS from 05/03/2019 FINDINGS: Fluoroscopy was provided in the OR. Hard copy images show placement of 3 partially threaded screws through the proximal right femur for fixation of the previously noted fracture. The alignment appear s anatomic. Fluoro time: 75.3 sec RADIATION DOSE DELIVERED:
--- NOTE | 2019-05-04 13:25 | W.PM.OP ---
Date of service: 05/04/19 Time of Service: 13:26 Operative Note Operative Note DATE OF PROCEDURE: 05/04/19 PRE-OP DIAGNOSIS: 1. Right valgus impacted femoral neck fracture POST-OP DIAGNOSIS: same PROCEDURE: 1. Percutaneous skeletal fixation right femoral neck fracture SURGEON: Sagar Freire FACTORY CLERK: None None ANESTHESIA: GETA and local ESTIMATED BLOOD LOSS: 5 COMPLICATIONS: None Patient was transported to: PACU Patient's condition: stable Implants: Synthes 7.3mm short 16mm threaded cannulated screws 80 anterior, 80 posterior, and 85mm central-inferior Indications: Please see complete medical record for details. Procedure Description: The patient was taken to the operating room and transferred to the operating room table. General anesthesia was induced. All bony prominences were well-padded. Preoperative antibiotics were administered. The right hip was prepped and draped in the usual sterile fashion. The correct patient, procedure, and side of the procedure were all verified prior to incision. Under fluoroscopic guidance a percutaneous approach was used to localize the appropriate lateral proximal femoral start point taking care not to start any lower than the lesser trochanter. The central inferior most guidewire was placed first and confirmed in AP and lateral fluoroscopy. Next to the posterior superior guidewire was also placed in percutaneous fashion and localize in AP and lateral fluoroscopy. This was repeated for the anterior superior guidewire. A knife was used to open each percutaneous incision widened for the planned cannulated screw. The cannulated drill was used to open the lateral cortex over each guidewire. Each guidewire was measured and then appropriate lengthed screws were selected and placed over the guidewires. Screw lengths were checked in the inferior central screw was swapped out for a screw length 5 mm longer. All screws were sequentially tightened carefully to maintain stable impaction and achieved good fixation. Final AP lateral and oblique fluoroscopy confirmed appropriate screw length with no prominence of the joint. The percutaneous wounds were irrigated with saline. 25 cc of 0.25% Novocain containing epinephrine was infiltrated about the incisions. Each incision was closed using 2-0 and 3-0 Monocryl in buried interrupted fashion. Skin was closed with skin glue and then all stab incisions were covered with Telfa gauze and Tegaderm dressing. The patient awoke from anesthesia without complication was taken to recovery room in stable condition
[2019-05-04] MEDS: Acetaminophen 325 MG TAB 650 MG PO (13:28)
[2019-05-04] MEDS: Metoprolol 25 MG TAB PO (14:24)
[2019-05-04] MEDS: predniSONE 5 MG TAB 7.5 MG PO (14:24)
--- NOTE | 2019-05-04 14:36 | NUR.NOTE ---
Patient returned from OR approximately 1345. VS stable, patient alert and oriented, son (Eusebio) at bedside. Dr. Freire will be up to see the patient and talk with the family later today. Patient has 5/10 pain in head. Gauze bandage in place and covered with tegaderm. Ice pack to R leg. Patient tolerating liquids well with slight frogginess in her throat. Nursing Note:
--- NOTE | 2019-05-04 14:56 | NUR.NOTE ---
The EKG done on 05/03 was filed under the wrong patient. This EKG did not occur at 0410 05/03. Nursing Note:
--- NOTE | 2019-05-04 14:58 | PDOC.CMIN ---
- If Service Date Differs Date of service: 05/04/19 Time of Service: 14:58 Care Management Initial Assess REASON FOR HOSPITALIZATION:: hip fracture PAST MEDICAL HISTORY/PAST SURGICAL HISTORY:: Atrial flutter (Resolved). Celiac disease (Chronic 06/12/13). Cortical cataract of left eye (Resolved). DVT (deep venous thrombosis) (Chronic). Epiretinal membrane (ERM) of left eye (Chronic). GERD (gastroesophageal reflux disease). History of pelvic fracture (Chronic). Nuclear sclerotic cataract of left eye (Resolved). Osteoarthritis. Osteoporosis (Chronic). Paroxysmal atrial fibrillation. Polymyalgia rheumatica. Polymyalgia rheumatica (Resolved 08/14/14). Surgical Hx:Cholecystectomy (~01/2007). Colonoscopy - MAC. Hemorrhoidal Banding (04/27/17). Status post cataract extraction and insertion of intraocular lens of left eye (Chronic 05/02/18). Status post cataract extraction and insertion of intraocular lens of right eye PREVIOUS FUNCTIONAL STATUS/SOCIAL/FAMILY SUPPORTS:: Colleen, lives alone in [place], [place] . She has a two story home but lives on one floor only. Colleen has several family members that provider her support at home. She still drives and is independent with ADL's and meals. CURRENT FUNCTIONAL STATUS:: Colleen was sitting up in bed when CM met with her. She had just returned from surgery a short time earlier but was awake and alert. Colleen was agreeable to conversation and engaged quickly. She shared the details of her fall and discussed her home life and routines. Colleen prefers not to go to a SNF for rehab but is open to that possibility if it is recommended. Colleen's son Eusebio was present during the conversation and reinforced how independent his Mom is. ADVANCE DIRECTIVES:: Has AD. Son Eusebio [facility] Has patient been provided with information about the portal?: Yes Did the patient sign up for the portal?: No CODE STATUS:: DNR/DNI INSURANCE COVERAGE / FINANCIAL ISSUES:: Medicaid, Combined CURRENT HOME/COMMUNITY SERVICES/EQUIPMENT:: Colleen has a walker but receives no services PRIMARY CARE PHYSICIAN:: Dr. Anthony POTENTIAL DISCHARGE NEEDS:: Follow up with Orthopedic surgeon, PCP and discharge plan of care PATIENT/FAMILY EDUCATION NEEDS:: Discharge plan, limitations, follow up plan, Ask Me Three TRANSPORTATION:: to be determined by final discharge plan PLAN:: Colleen will likely discharge home with new home health services of nursing and PT. She will follow up with her providers and discharge plan of care. CM will continue to support patient, family and discharge planning needs.
--- NOTE | 2019-05-04 15:57 | IN_ITS ---
Date of service: 05/04/19 Time of Service: 15:15 PT Notes Visit Reasons: HIP FRACTURE Physical Therapy Inpatient Initial Evaluation Date: 05/04/2019 Referring Doctor: Sagar Freire MD PT Orders: PT CONSULT: Status post Ortho surgery Precautions: Fall. Standard. WBAT on right LE. Patient Profile/Admitting Diagnosis: Patient is an 83-year-old female with past medical history significant for polymyalgia rheumatica who presented to the ED on 05/03/2019 due to a mechanical fall onto her right hip while retrieving mail outside her house. She is diagnosed with a right valgus impacted femoral neck fracture and is status post percutaneous skeletal fixation on postoperative day 0. PMHX: Medical History Atrial flutter (Chronic) paroxysmal, Atrial fib/flutter, rate controlled, not on anticoagulation. Zio Patch ordered. Celiac disease (Chronic 06/12/13) Cortical cataract of left eye (Resolved) DVT (deep venous thrombosis) (Chronic) s/p hemorrhoid banding Epiretinal membrane (ERM) of left eye (Chronic) GERD (gastroesophageal reflux disease) History of pelvic fracture (Chronic) Nuclear sclerotic cataract of left eye (Resolved) Osteoarthritis Osteoporosis (Chronic) Paroxysmal atrial fibrillation Polymyalgia rheumatica Polymyalgia rheumatica (Resolved 08/14/14) Spinal stenosis (Acute) Surgical History Cholecystectomy (~01/2007) Colonoscopy - MAC Hemorrhoidal Banding (04/27/17) Status post cataract extraction and insertion of intraocular lens of left eye (Chronic 05/02/18) Status post cataract extraction and insertion of intraocular lens of right eye (Chronic 05/16/18) Social History/Home Situation: Patient lives alone in a private home with 1 step that leads to a porch and then another step to the entrance door. She is independent with all aspects of ADLs using a cane for all outdoor ambulation and a front wheeled walker for indoors. She still drives. She says that she has family members who live close by who can help as needed. Equipment Owned/DME: Front-wheeled walker, single-point cane. Subjective: Patient states that nothing right now hurts except for her head. She reports that her headache has been really limiting her for a long time now. She is agreeable to a PT consult. She states that her right lower extremity is still a little numb. Objective: General Observation: Patient seen resting in bed. IV accesses seen on bilateral forearms. Oxygen supplementation at 1 L/min via NC. Bilateral TEDS on. Bilateral anti-thromboembolic pumps on. Mental Status: Alert and oriented x4 Pain: Reports headache Vital Signs: Oxygen saturation ranged from 87 to 89% on room air while at edge of bed, during standing, and ambulation activities. ROM: Right Upper Extremity: Shoulder Flexion WFL. Shoulder abduction WFL. Elbow flexion WFL. Wrist flexion WFL. Opening and closing of hand WFL. Left Upper Extremity: Shoulder Flexion WFL. Shoulder abduction WFL. Elbow flexion WFL. Wrist flexion WFL. Opening and closing of hand WFL. Right Lower Extremity: Hip flexion allows about 10 degrees beyond 90 while seated on the edge of the bed. Hip abduction WFL. Knee flexion WFL. Ankle dorsiflexion WFL. Ankle plantarflexion WFL. Left Lower Extremity: Hip flexion WFL. Hip abduction WFL. Knee flexion WFL. Ankle dorsiflexion WFL. Ankle plantarflexion WFL. Strength: Right Upper Extremity: Shoulder flexors 4/5. Shoulder abductors 4/5. Elbow flexors 45. Elbow extensors 4/5. Hvac Mechanical Engineer strong. Left Upper Extremity: Shoulder flexors 4/5. Shoulder abductors 4/5. Elbow flexors 45. Elbow extensors 4/5. Hvac Mechanical Engineer strong. Right Lower Extremity: Hip flexors 3-/5. Hip abductors 4- /5. Knee flexors 3+ /5. Knee extensors 3+ /5. Ankle dorsiflexors 4 /5. Ankle plantarflexors 4 /5. Left Lower Extremity:Hip flexors 4/5. Hip abductors 4/5. Knee flexors 4/5. Knee extensors 4/5. Ankle dorsiflexors 4/5. Ankle plantarflexors 4/5. Sensation: Intact as to pain and pressure on left lower extremity. Patient reports residual numbness on the right lower extremity. Bed Mobility/Transfers: Rolling minimal assist to right LE Supine to sit minimal assist to right LE Sit to supine minimal assist to right LE Sit to stand CGA Stand to sit CGA Bed to chair CGA Chair to bed CGA Gait: Patient tolerated short distance ambulation of about 20 feet +5 feet using the front wheeled walker with CGA and wheelchair follow of PT. Reciprocal step to gait pattern. Decreased step height and length on the right side. Minimal verbal cues provided for safe gait pattern and walker management. Patient desaturated to as low as 86% with high set of 89% on room air during ambulation activity. Balance: Static Sitting: Normal Dynamic Sitting: Normal Static Standing: Fair Dynamic Standing: Fair Special Tests: Mobility Limitations Standardized Measure [facility] 6 clicks Basic Mobility Inpatient Short Form: Raw Score: 18 CMS Score: 47% deficit Informed Consent/Education: Patient instructed in purpose of PT consult and plan of care. Assessment: Difficulty in walking, need for assistive device, generalized weakness, and impairment in balance awareness resulting from postoperative status. Patient is an 83-year-old female with past medical history significant for polymyalgia rheumatica who presented to the ED on 05/03/2019 due to a mechanical fall onto her right hip while retrieving mail outside her house. She is diagnosed with a right valgus impacted femoral neck fracture and is status post percutaneous skeletal fixation on postoperative day 0. Patient presents with clinical signs and symptoms consistent with current/admitting diagnoses that have resulted to mobility limitations, gait instability, generalized weakness, and impairment of motor control as demonstrated by the following impairment level findings: 1. Decreased strength to B LE major muscle groups 2. Impaired standing balance 3. Impaired activity tolerance 4. Limitation of joint range of motion in right hip Impairments are contributing to the following functional limitations: 1. Dependent bed mobility skills 2. Increased dependence with transfers 3. Inability to safely ambulate without assistive device and physical assistance 4. Increase completion time for mobility ADL performance 5. Increased fall risk 6. Inability to negotiate steps alone safely Patient is assessed as a 39831 moderate complexity based on the following: History: 83-year-old female with impairment level findings, functional limitations, and [facility] deficit score of 47% Examination: Demonstrable impairment in strength, balance, and range of motion with underlying impairments and functional limitations as documented above Presentation: Evolving Decision Makin moderate complexity Goals: Goals X1 week 1. Supine-Sit independent 2. Sit-Supine independent 3. Sit-Stand independent 4. Stand-Sit independent 5. Bed-Chair independent 6. Chair-Bed independent 7. Independent gait on level surface with use of least restrictive device for at least 300 feet without report of pain nor dyspnea 8. Independent stair negotiation while holding onto bilateral rails for at least 5 steps without report of pain nor dyspnea 9. Independent with home exercise program 10. Good static and dynamic standing balance/tolerance Plan of Care/Treatment Plan: 1-2x/day, 7 days/week x 1 week. Plan of care has been reviewed with the CANE FLUME FEEDING MACHINE OPERATOR providing the service under Physical Therapy direction. Initiate Physical Therapy intervention for strengthening, bed mobility, transfers, gait, stairs, balance training, use of assistive device. DISCHARGE RECOMMENDATIONS: Patient will benefit from home health PT services in order to progress mobility level using least restrictive assistive ambulatory device, assess home safety, identify additional equipment needs, and establish a functional maintenance program that will increase ability of patient to remain at home. TREATMENT CODE/TIME: 9716 2 x 25 minutes, 36856 x 13 minutes beginning at 15:15 p.m. Thank you very much for this referral. Denise Ramirez PT, DPT, CLT [facility] [place], [place]
[2019-05-04] MEDS: ceFAZolin 1 GM/50 ML BAG IVPB (18:40)
[2019-05-04] MEDS: Normal Saline 1,000 ML 50 ML IV (18:53)
[2019-05-05] MEDS: ceFAZolin 1 GM/50 ML BAG IVPB ×2 (03:00→09:17)
--- NOTE | 2019-05-05 05:30 | NUR.NOTE ---
Nursing Note: Patient transferred from ICU (Med-Surg overflow) to Med-Surg room 212. Patient was brought in on ICU bed. Patient is alert and oriented x3, however, does have periods of confusion and can become fidgety per ICU nurse Vickie. Lung sounds noted to be clear throughout and heart rate regular. Patient has LR running in her left hand through a 20 gauge and has an IID in the left forearm. Upon assessing IV site, it was found to be occluded and was removed. LR was switched to the left forearm and wrapped due to patient previously fidgeting with the IV site. Patient has a hussein in place that is draining clear, light pink urine also due to patient pulling at hussein tubing. Patient has an incision to the right hip, dressing clean, dry and intact slight bruising noted around surgical site. + CMSTs throughout. Patient has SCDs and TEDs in place. Vital signs as documented.
[2019-05-05 05:47] VITALS: BP 172/76; PULSE 81; RESP 16; TEMP 36.1; O2SAT 92
[2019-05-05 07:02] LABS: Abs Immature Grans 0.04 k/cumm (0.0-0.09); Absolute Basophil Count 0.01 k/cumm (0.0-0.2); Absolute Neutrophil Count 10.77 k/cumm (1.2-6.7); Basophils % 0.1; Eosinophils % 1.4; HCT 37.3 % (36.0-46.0); HGB 12.6 g/dL (12.0-15.5); Immature Grans % 0.3 %; Lymphocytes % 8.5; Mean Corp. HGB Concentration 33.8 g/dL (32.0-36.0); Mean Corpuscular Hemoglobin 29.2 pg (27.0-33.0); Mean Corpuscular Volume 86.5 fL (80-95); Mean Platelet Volume 10.1 fL (8.0-11.0); Monocytes % 8.2; Neutrophils % 81.5; Platelet Count 231 x1000/uL (130-400); RBC 4.31 m/cumm (4.00-5.20); RBC Distribution Width 13.4 % (11.7-14.6); White Blood Cell Count 13.22 k/cumm (4.4-10.8)
[2019-05-05 07:06] LABS: Absolute Eosinophil Count 0.19 k/cumm (0.0-0.7); Absolute Lymphocyte Count 1.12 k/cumm (1.2-3.4); Absolute Monocyte Count 1.08 k/cumm (0.11-0.7)
[2019-05-05 07:15] LABS: Anion Gap 11.6 mmol/L (3-11); BUN 13 mg/dL (7-18); CO2 22.4 mmol/L (21.0-32.0); CREATININE 0.92 mg/dL (0.55-1.02); Calcium 8.3 mg/dL (8.5-10.1); Chloride 101 mmol/L (98-107); Glucose 99 mg/dL (74-106); Potassium 3.8 mmol/L (3.5-5.1); Sodium 135 mmol/L (136-145)
[2019-05-05] MEDS: Metoprolol 25 MG TAB PO (08:10)
[2019-05-05] MEDS: Enoxaparin 30 MG/0.3 ML SYR SC (08:10)
[2019-05-05] MEDS: predniSONE 5 MG TAB 7.5 MG PO (08:10)
[2019-05-05 08:29] VITALS: BP 162/84; PULSE 95; RESP 20; TEMP 36.8; O2SAT 95
--- NOTE | 2019-05-05 11:50 | PT.INTREAT ---
Date of service: 05/05/19 Time of Service: 11:50 PT Notes Visit Reasons: HIP FRACTURE 05/05/2019 SUBJECTIVE: Pt stating she has minimal discomfort. She notes a little tightness in the right thigh with weight bearing activities. She states she is very active at home. She uses wood to heat her home but she has oil back up. She does her own garden and she drives. She also states she has good family support that live near by. OBJECTIVE: Pt is seated in her chair. Agreeable to PT treatment. TRANSFERS Sit to stand: S Stand to sit: S GAIT Device: FWW Weight bearing: AT R Assist: S Distance: 100' Deviation: Step to pattern. THEREX: Instruct pt in ankle pumps and LAQ's to be performed throughout the day. ASSESSMENT: Pt tolerates gait and transfers with supervision only. Her pain is very well managed. No LOB during gait utilizing her FWW. PLAN: Continue current POC. Treatment time: 25 minutes [id number], [id number] Ashia Adhikari, LIDIA
--- NOTE | 2019-05-05 12:34 | W.NUTCONSULT ---
Date of service: 05/05/19 Time of Service: 12:34 Nutritional Consult ASSESSMENT: 83 y/o female with R Hip fx p/s fall. On Reg diet with ~ 50% at meals. Noted: patient has mild cognitive impairment. Reports hx celiac but has incorporated small amounts of wheat into her diet w/o complications. On wafarin. Has surg incision R hip. IDT team reports patient to be DC'd today to her home. No nutritional recs at this time. Time Spent in Nutritional Counseling and Treatment: 5 minutes face to face
[2019-05-05] MEDS: Acetaminophen 500 MG TAB 1000 MG PO (12:48)
[2019-05-05] MEDS: Ibuprofen 600 MG TAB PO (12:48)
--- NOTE | 2019-05-05 12:54 | PGE_ITS ---
Date of Service Date of service: 05/05/19 Time of Service: 12:55 Assessment and Plan Assessment and plan (1) Closed right hip fracture: Status: Acute Assessment and plan: 83-year-old female postop day #1 status post right hip percutaneous internal fixation for valgus impacted femoral neck fracture Patient doing remarkably well. She is medically stable and safely mobilizing with and without assistance. Strongly desires discharge home today. She will have family to care for her as an outpatient. Plan of care discussed with primary medical team Call me directly if any questions or concerns Postoperative plan- Right lower extremity weightbearing as tolerated with assist device Physical therapy-gait training Pain control- multimodal Lovenox 30 mg daily x 30 days postop for DVT prophylaxis Keep dressing in place, clean and dry until follow-up Follow-up with Dr. Freire at [facility] orthopedics in 2.5 weeks. Office will call Wednesday to arrange this appt. Qualifiers: Encounter type: initial encounter Qualified Code(s): S72.001A - Fractur e of unspecified part of neck of right femur, initial encounter for closed fracture Subjective Subjective Patient reports: no new complaints and feels better Exam Narrative Exam Narrative: Right hip: Clean dry intact Compartments soft no erythema or drainage No signs dvt or infection NVI distally with BCR Able to rise from chair and stand without difficulty or significant discomfort Objective Objective Clinical Data: Abnormal lab results 05/05/19 05/05/19 Range/Units 06:25 06:25 WBC 13.22 H (4.4-10.8) k/cumm Absolute Neutrophils 10.77 H (1.2-6.7) k/cumm Absolute Lymphocytes 1.12 L (1.2-3.4) k/cumm Absolute Monocytes 1.08 H (0.11-0.7) k/cumm Sodium 135 L (136-145) mmol/L Anion Gap 11.6 H (3-11) mmol/L Calcium 8.3 L (8.5-10.1) mg/dL Vital Signs Temperature 98.2 F 05/05/19 08:29 Temperature Source Tympanic 05/05/19 08:29 Pulse 95 H 05/05/19 08:29 Pulse Rhythm Regular 05/05/19 09:00 Pulse 90 05/04/19 14:30 Respiratory Rate 20 05/05/19 08:29 Respiratory Effort Non-Labored 05/05/19 09:00 Respiratory Depth Normal 05/05/19 09:00 Respiratory Pattern Normal 05/05/19 09:00 Blood Pressure 162/84 H 05/05/19 08:29 Blood Pressure Mean 90 05/04/19 15:19 Blood Pressure Position Supine 05/03/19 22:20 Pulse Oximetry 95 05/05/19 08:29 Respiratory End-tidal CO2 28 05/04/19 13:40 Oxygen Delivery Method Room Air 05/05/19 08:29 Oxygen Flow Rate 0 05/05/19 08:29 Pain Level 0 05/05/19 12:48 Comment 05/04/19 15:20 Intake & Output 05/04/19 05/05/19 05/05/19 23:59 11:59 23:59 Intake Total 2121.666 / 3801.666 50.833 / 50.833 Output Total 750 / 1800 1450 / 1450 Balance 1371.666 / 2001.666 -1399.167 / -1399.167 Weight 132 lb 15.02 oz Intake: IV 1581.666 / 3216.666 50.833 / 50.833 Oral 540 / 585 Output: Urine 750 / 1800 1450 / 1450 Other: Urine Color Pale [place] Urine Appearance Clear Clear Stool Size Moderate Stool Characteristics Soft Liquid Emesis Description None Voiding Methods Toilet Laboratory Results WBC 13.22 k/cumm (4.4-10.8) H 05/05/19 06:25 RBC 4.31 m/cumm (4.00-5.20) 05/05/19 06:25 Hgb 12.6 g/dL (12.0-15.5) 05/05/19 06:25 Hct 37.3 % (36.0-46.0) 05/05/19 06:25 MCV 86.5 fL (80-95) 05/05/19 06:25 MCH 29.2 pg (27.0-33.0) 05/05/19 06:25 MCHC 33.8 g/dL (32.0-36.0) 05/05/19 06:25 RDW 13.4 % (11.7-14.6) 05/05/19 06:25 Plt Count 231 x1000/uL (130-400) 05/05/19 06:25 MPV 10.1 fL (8.0-11.0) 05/05/19 06:25 Immature Gran % 0.3 % 05/05/19 06:25 Neutrophils % 81.5 05/05/19 06:25 Lymphocytes % 8.5 05/05/19 06:25 Monocytes % 8.2 05/05/19 06:25 Eosinophils % 1.4 05/05/19 06:25 Basophils % 0.1 05/05/19 06:25 Absolute Neutrophils 10.77 k/cumm (1.2-6.7) H 05/05/19 06:25 Absolute Lymphocytes 1.12 k/cumm (1.2-3.4) L 05/05/19 06:25 Absolute Monocytes 1.08 k/cumm (0.11-0.7) H 05/05/19 06:25 Absolute Eosinophils 0.19 k/cumm (0.0-0.7) 05/05/19 06:25 Absolute Basophils 0.01 k/cumm (0.0-0.2) 05/05/19 06:25 Sodium 135 mmol/L (136-145) L 05/05/19 06:25 Potassium 3.8 mmol/L (3.5-5.1) 05/05/19 06:25 Chloride 101 mmol/L (98-107) 05/05/19 06:25 Carbon Dioxide 22.4 mmol/L (21.0-32.0) 05/05/19 06:25 Anion Gap 11.6 mmol/L (3-11) H 05/05/19 06:25 BUN 13 mg/dL (7-18) 05/05/19 06:25 Creatinine 0.92 mg/dL (0.55-1.02) 05/05/19 06:25 Estimated GFR/1.73 m2 58.30 (mL/min/1.73m2) 05/05/19 06:25 Glucose 99 mg/dL (74-106) 05/05/19 06:25 Calcium 8.3 mg/dL (8.5-10.1) L 05/05/19 06:25 Total Bilirubin 0.2 mg/dL (0.2-1.0) 05/03/19 18:05 AST 30 U/L (15-37) 05/03/19 18:05 ALT 23 U/L (14-59) 05/03/19 18:05 Alkaline Phosphatase 90 U/L (46-116) 05/03/19 18:05 Total Protein 7.1 g/dL (6.4-8.2) 05/03/19 18:05 Albumin 3.5 g/dL (3.4-5.0) 05/03/19 18:05 Urine Color Yellow (Yellow) 05/03/19 20:50 Urine Clarity Clear (Clear) 05/03/19 20:50 Urine pH 7.0 (5-8) 05/03/19 20:50 Ur Specific [place] 1.015 (1.005-1.025) 05/03/19 20:50 Urine Protein Negative mg/dL (Negative) 05/03/19 20:50 Urine Ketones Negative mg/dL (Negative) 05/03/19 20:50 Urine Blood Trace-intact (Negative) H 05/03/19 20:50 Urine Nitrite Negative (Negative) 05/03/19 20:50 Urine Bilirubin Negative (Negative) 05/03/19 20:50 Urine Urobilinogen 0.2 EU/dL (Up TO 0.2) 05/03/19 20:50 Ur Leukocyte Esterase Negative (Negative) 05/03/19 20:50 Urine RBC 0-2 HPF (0-2) 05/03/19 20:50 Urine WBC 0-2 HPF (0-5) 05/03/19 20:50 Ur Epithelial Cells Rare HPF (Negative) 05/03/19 20:50 Urine Crystals Negative HPF (Negative) 05/03/19 20:50 Urine Bacteria Rare HPF (Negative) 05/03/19 20:50 Urine Casts Negative LPF (Negative) 05/03/19 20:50 Urine Mucus Negative (Negative) 05/03/19 20:50 Ur Culture Indicated? No 05/03/19 20:50 Urine Glucose Negative mg/dL (Negative) 05/03/19 20:50 Acetaminophen 61 ug/mL (10-30) H 05/03/19 21:50 Patient ABO/Rh O Positive 05/03/19 17:40 Antibody Screen Negative 05/03/19 17:40
--- NOTE | 2019-05-05 13:22 | DSE_ITS ---
Date of service: 05/05/19 Time of Service: : DS: Diagnosis Discharge Diagnosis (1) Closed right hip fracture: Start date: 05/05/19 Start time: :22 Status: Acute Asessment and Plan: POD 1, no pain. ambulatory. PT and ortho feel patient would benefit from home PT/OT. Will discharge home with services. Pain control. Lovenox 30 mg x 30 days. f/u with ortho in 2 weeks. Patient feels ready to go home. Discharge Plan Disposition Patient Disposition: HOME Condition: Improving Discharge Details Chief Complaint: Orthopedic Clinical Impression: Closed right hip fracture Reason For Visit: HIP FRACTURE Admit Date/Time: 05/03/19 19:59 Admit Provider: Henry Daley Attending Provider: Henry Daley Primary Care Provider: Andrez Anthony ED Provider: Cliff Villalba Hospital Course Hospital Course: 83 y.o active elderly female admitted to [facility] m/s for Right hip fracture following a fall. Dr. Freire was consulted for hip fracture. She was medically cleared and taken to OR on 05/03 for Percutaneous skeletal fixation right femoral neck fracture. POD 1 doing well, no pain. She is ambulating with minimal assistance. She would like to go home. PT agrees she will do well at home with PT/OT home health service. Dr. Freire recommends lovenox x 30 days. Continue pain regimen, add bowel regimen for home. She denies CP, N/v/D. Home Meds and New Rx's Prescriptions: New tramadol 50 mg Tablet 50 mg PO Q4H PRN PRNQty: 10 RF: 0 enoxaparin [Lovenox] 30 mg/0.3 mL Syringe 30 mg subcut DAILY Qty: 30 RF: 0 Continued esomeprazole magnesium [Nexium] 40 mg capsule,delayed release(DR/EC) 40 mg PO DAILY PRNRF: 0 prednisone 5 mg tablet 7.5 mg PO DAILY Qty: 135 RF: 3 metoprolol tartrate 25 mg tablet 25 mg PO BID Qty: 180 RF: 4 acetaminophen 500 mg Tablet 1,000 mg PO PRN PRNRF: 0 cholecalciferol (vitamin D3) [Vitamin D3] 1,000 unit Capsule 1,000 unit PO DAILY RF: 0 B-complex with vitamin C [Super B Complex-Vitamin C] Tablet 1 tab PO DAILY RF: 0 coenzyme Q10 [CoQ-10] 100 mg Capsule 200 mg PO DAILY RF: 0 Discharge Instructions Additional Instructions: Follow up with Primary physician as needed. Postoperative plan- Right lower extremity weightbearing as tolerated with assist device Physical therapy-gait training Pain control- multimodal Lovenox 30 mg daily x 30 days postop for DVT prophylaxis Keep dressing in place, clean and dry until follow-up Follow-up with Dr. Freire at [facility] orthopedics in 2.5 weeks. Office will call Wednesday to arrange this appt. Tylenol 1000 mg every 6 hours, Ibuprofen every 6 hours for pain. Take tramadol for severe pain. Stand Alone Forms: Nursing Discharge Form Referrals: Sagar Freire MD [ [facility] STAFF PHYSICIAN] - (Please make follow up appointment for 2 weeks. ) Activity:: Activity as Tolerated Equipment/Supplies:: No Equipment Needed Diet:: As Tolerated Discharge Orders Discharge Orders: Discharge Order (Routine); Ordered 05/05/19 Ordered By: Latrice Aguilera DS: Summary Status at Discharge Functional status at discharge: uses cane/walker Overall status at discharge: patient is progressing back to baseline Mental Status: mental status grossly normal Speech and Movement: speech and movement normal Mood: congruent mood Affect: normal affect Exam Narrative Exam Narrative: Elderly female alert and oriented person place time circumstance. Neck is supple without JVD normal carotid pulses no bruits. Lungs are clear to auscultation. Heart is regular rate and rhythm without murmur rub or gallop. Abdomen is soft and nontender with normal active bowel sounds no organomegaly no palpable masses no bruits. Right hip is tender to palpation. She has no calf tenderness or swelling no ped al edema. Psych Mental Status: mental status grossly normal Speech and Movement: speech and movement normal Mood: congruent mood Affect: normal affect DS: Data Vitals/I&O Vitals and I&O: Vital Signs Temperature 36.8 C 05/05/19 08:29 Temperature Source Tympanic 05/05/19 08:29 Pulse 95 H 05/05/19 08:29 Pulse Rhythm Regular 05/05/19 09:00 Pulse 90 05/04/19 14:30 Respiratory Rate 20 05/05/19 08:29 Respiratory Effort Non-Labored 05/05/19 09:00 Respiratory Depth Normal 05/05/19 09:00 Respiratory Pattern Normal 05/05/19 09:00 Blood Pressure 162/84 H 05/05/19 08:29 Blood Pressure Mean 90 05/04/19 15:19 Blood Pressure Position Supine 05/03/19 22:20 Pulse Oximetry 95 05/05/19 08:29 Respiratory End-tidal CO2 28 05/04/19 13:40 Oxygen Delivery Method Room Air 05/05/19 08:29 Oxygen Flow Rate 0 05/05/19 08:29 Pain Level 0 05/05/19 12:48 Comment 05/04/19 15:20 Intake & Output 05/04/19 05/05/19 05/05/19 23:59 11:59 23:59 Intake Total 2121.666 / 3801.666 50.833 / 50.833 Output Total 750 / 1800 1450 / 1450 Balance 1371.666 / 2001.666 -1399.167 / -1399.167 Weight 60.3 kg Intake: IV 1581.666 / 3216.666 50.833 / 50.833 Oral 540 / 585 Output: Urine 750 / 1800 1450 / 1450 Other: Urine Color Pale [place] Urine Appearance Clear Clear Stool Size Moderate Stool Characteristics Soft Liquid Emesis Description None Voiding Methods Toilet Data Completed and Pending Completed studies during hospitalization [Text1]: EXAM: XR CHEST 1V IN DI DEPT CLINICAL HISTORY: Fall, rt hip pain TECHNIQUE: 2D digital imaging was performed. COMPARISON: XR CHEST 2V PA LATERAL from 09/21/2018 FINDINGS: HEART: The heart size is normal. The aorta shows calcification. MEDIASTINUM: Normal. There is minimal blunting at the left costophrenic angle. The left diaphragm is slightly elevated. No rib fractures are visible. IMPRESSION: Minimal blunting at the left costophrenic angle could represent a tiny effusion versus atelectasis. No rib fractures or pneumothorax are visible. Exam(s) a CT:CT lower extremity RT wo EXAM: CT LOWER EXTREMITY RT WO CLINICAL HISTORY: R hip pain, operative planning. TECHNIQUE: Imaging Protocol: Axial computed tomography images with coronal and sagittal reformatted images were created and reviewed. CONTRAST MATERIAL: None COMPARISON: XR HIP RT COMPLETE AP PELVIS from 05/03/2019 FINDINGS: There is a fracture seen extending through the subcapital region of the femoral neck. There is some impaction seen laterally. There is no significant disp lacement. There is mild angulation. No acetabular fracture is seen. There are old fractures of the right superior and inferior pubic ramus. The bones appear osteopenic. No significant surrounding hematoma is seen. There is a small amount of air in the anterior soft tissues. IMPRESSION: Mildly angulated mildly impacted subcapital fracture of the right femur. Exam(s) PROCEDURE INFORMATION: Exam: CT Right Lower Extremity Without Contrast, Hip Exam date and time: 05/03/2019 7:15 PM Age: 83 years old Clinical indication: Pain; Hip; Right; Additional info: Right hip pain, operative planning TECHNIQUE: Imaging protocol: CT of the Right lower extremity without contrast was performed. Exam focused on the hip. Radiation optimization: All CT scans at this facility use at least one of these dose optimization techniques: automated exposure control; mA and/or kV adjustment per patient size (includes targeted exams where dose is matched to clinical indication); or iterative reconstruction. COMPARISON: CR XR HIP RT COMPLETE AP PELVIS 05/03/2019 6:41 PM FINDINGS: Bones/joints: Osteopenia. There is a transversely oriented fracture of the right femoral neck extending from the mid cervical distribution in the medial cortex to the subcapital distribution in the lateral cortex, with about 6 mm impaction along the lateral margin of the fracture interface producing mild valgus angulation. No intertrochanteric extension. No acute pelvic/acetabular fractures are identified. Old healed fractures of the right superior and inferior pubic rami and right parasymphyseal pubis are noted. No dislocation. Hip joint space and articular surfaces are grossly well-maintained. No radiographic evidence to suggest transient osteoporosis or avascular necrosis. No blastic or lytic lesions. No evidence of traumatic diastasis at the pubic symphysis. Soft tissues: No soft tissue hematoma. Small amount of air in the subcutaneous tissues anterior to the hip but no foreign bodies or associated fluid collections. IMPRESSION: 1. Right femoral neck fracture as detailed above. No intertrochanteric extension. No pelvic/acetabular acute fractures are identified although there are chronic fractures in the right pubis. 2. No soft tissue hematoma. Labs on day of discharge: Labs from last 24 hours 05/05/19 05/05/19 06:25 06:25 WBC 13.22 H RBC 4.31 Hgb 12.6 Hct 37.3 MCV 86.5 MCH 29.2 MCHC 33.8 RDW 13.4 Plt Count 231 MPV 10.1 Immature Gran % 0.3 Neutrophils % 81.5 Lymphocytes % 8.5 Monocytes % 8.2 Eosinophils % 1.4 Basophils % 0.1 Absolute Neutrophils 10.77 H Absolute Lymphocytes 1.12 L Absolute Monocytes 1.08 H Absolute Eosinophils 0.19 Absolute Basophils 0.01 Sodium 135 L Potassium 3.8 Chloride 101 Carbon Dioxide 22.4 Anion Gap 11.6 H BUN 13 Creatinine 0.92 Estimated GFR/1.73 m2 58.30 Glucose 99 Calcium 8.3 L [facility] Medical History Atrial flutter (Chronic) paroxysmal, Atrial fib/flutter, rate controlled, not on anticoagulation. Zio Patch ordered. Celiac disease (Chronic 06/12/13) Cortical cataract of left eye (Resolved) DVT (deep venous thrombosis) (Chronic) s/p hemorrhoid banding Epiretinal membrane (ERM) of left eye (Chronic) GERD (gastroesophageal reflux disease) History of pelvic fracture (Chronic) Nuclear sclerotic cataract of left eye (Resolved) Osteoarthritis Osteoporosis (Chronic) Paroxysmal atrial fibrillation Polymyalgia rheumatica Polymyalgia rheumatica (Resolved 08/14/14) Spinal stenosis (Acute) Surgical History Cholecystectomy (~01/2007) Colonoscopy - MAC Hemorrhoidal Banding (04/27/17) Status post cataract extraction and insertion of intraocular lens of left eye (Chronic 05/02/18) Status post cataract extraction and insertion of intraocular lens of right eye (Chronic 05/16/18) Family History Mother No problems noted. 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 [employer] Pets and animals: No What type of physical activity do you participate in: none Jennifer/Yarsanism: Taoism Special jennifer needs: No Do you feel safe at home: Yes Do you feel safe in your relationship?: Yes
--- NOTE | 2019-05-05 13:54 | CHAPLAIN ---
Colleen was sitting up in a chair when I visited. She told me about her fall, her surgery and screws that were put in her hip. She lives alone at home and has family nearby who offer support as well. Colleen said she expects to go home today. Her son Eusebio arrived while were talking. He drove up from [facility].
--- NOTE | 2019-05-05 13:59 | PDOC.HHF2F ---
Home Health Certification Home Health Certification: 1. Encounter Date and Reason I certify that YESENIA ROGERS was seen by Latrice Aguilera on 05/05/19 and that I had a [id number] encounter with this patient that meets the physician face to face encounter requirements. 2. Clinical Findings Supporting Skilled Need and Homebound Status I certify that home health services are medically necessary, include either intermittent alf and/or physical/speech therapy, and that this patient is homebound in that absences from the home require considerable and taxing effort and are infrequent or of short duration, or are attributable to the need to receive medical care. [X] (a) Attached documentation from encounter provides clinical findings supporting skilled need and homebound status (including what assistance patient requires to leave the home). The encounter with the patient was in whole, or in part, for the following medical condition, which is the primary reason for home health care: HIP FRACTURE Care Home: Patient would benefit from nursing services to help with ADL, Meds and lovenox injections, etc. Physical Therapy: Patient would benefit from Pt/OT for balance and gait training following hip repair, She would also benefit from ACTUARIAL SCIENCE PROFESSOR. Speech Therapy: Homebound: Patient is unable to leave house unassisted. 3. Certification and Authentication I certify that I composed the above information based on my clinical judgement relating to this patient's medical condition and, if applicable, clinical findings communicated to me by the NPP or inpatient physician who performed the Home Health Referral. All further orders will be obtained through ____Raj Maguire_(Community Based Physician - PCP)
--- NOTE | 2019-05-05 16:23 | CMDISCH_ITS ---
- If Service Date Differs Date of service: 05/05/19 Time of Service: 16:23 LACE Index Scoring Tool - Questions: Length of Stay (in days): 2 Acuity (Admit via E.D.?): Yes E.D. Visits: 6 - Answers: Total Score: 9 Risk of Readmission: Low Risk Care Management Discharge Reason for Hospitalization: hip fracture Discharge Plan: Colleen will be discharged home with new home health orders for Nursing and PT through [facility]. She has a new prescription for Lovenox that she will require help with. Radha will follow up with her surgeon and discharge plan of care. She will transport via private vehicle with her son Eusebio. Patient/Family Education Needs: Discharge plan, limitations, follow up plan, Ask Me Three.
--- NOTE | 2019-05-09 16:50 | INDS_ITS ---
Date of service: 05/09/19 PT Notes Visit Reasons: HIP FRACTURE Inpatient Physical Therapy Discharge Summary Dates: 05/09/2019 Dates of Service: 05/04/2019 and 05/05/2019 This is a clinical summary of care provided on the duration of dates listed above. No charge was made in the completion of this documentation. Referring Doctor: Sagar Freire MD PT Orders: PT CONSULT: Status post Ortho surgery Precautions: Fall. Standard. WBAT on right LE. Patient Profile/Admitting Diagnosis: Patient is an 83-year-old female with past medical history significant for polymyalgia rheumatica who presented to the ED on 05/03/2019 due to a mechanical fall onto her right hip while retrieving mail outside her house. She is diagnosed with a right valgus impacted femoral neck fracture and is status post percutaneous skeletal fixation on postoperative day 1 on day of discharge. PMHX: Medical History Atrial flutter (Chronic) paroxysmal, Atrial fib/flutter, rate controlled, not on anticoagulation. Zio Patch ordered. Celiac disease (Chronic 06/12/13) Cortical cataract of left eye (Resolved) DVT (deep venous thrombosis) (Chronic) s/p hemorrhoid banding Epiretinal membrane (ERM) of left eye (Chronic) GERD (gastroesophageal reflux disease) History of pelvic fracture (Chronic) Nuclear sclerotic cataract of left eye (Resolved) Osteoarthritis Osteoporosis (Chronic) Paroxysmal atrial fibrillation Polymyalgia rheumatica Polymyalgia rheumatica (Resolved 08/14/14) Spinal stenosis (Acute) Surgical History Cholecystectomy (~01/2007) Colonoscopy - MAC Hemorrhoidal Banding (04/27/17) Status post cataract extraction and insertion of intraocular lens of left eye (Chronic 05/02/18) Status post cataract extraction and insertion of intraocular lens of right eye (Chronic 05/16/18) Social History/Home Situation: Patient lives alone in a private home with 1 step that leads to a porch and then another step to the entrance door. She is independent with all aspects of ADLs using a cane for all outdoor ambulation and a front wheeled walker for indoors. She still drives. She says that she has family members who live close by who can help as needed. Equipment Owned/DME: Front-wheeled walker, single-point cane. Subjective: NT. See most recent [employer] notes. Objective: General Observation: NT. See most recent [employer] MANAGER notes. Mental Status: NT. See most recent [employer] MANAGER notes. Pain: NT. See most recent [employer] MANAGER notes. Right Upper Extremity: Shoulder Flexion WFL. Shoulder abduction WFL. Elbow flexion WFL. Wrist flexion WFL. Opening and closing of hand WFL. Left Upper Extremity: Shoulder Flexion WFL. Shoulder abduction WFL. Elbow flexion WFL. Wrist flexion WFL. Opening and closing of hand WFL. Right Lower Extremity: Hip flexion allows about 10 degrees beyond 90 while seated on the edge of the bed. Hip abduction WFL. Knee flexion WFL. Ankle dorsiflexion WFL. Ankle plantarflexion WFL. Left Lower Extremity: Hip flexion WFL. Hip abduction WFL. Knee flexion WFL. Ankle dorsiflexion WFL. Ankle plantarflexion WFL. Strength: Right Upper Extremity: Shoulder flexors 4/5. Shoulder abductors 4/5. Elbow flexors 45. Elbow extensors 4/5. Business Database Analyst strong. Left Upper Extremity: Shoulder flexors 4/5. Shoulder abductors 4/5. Elbow flexors 45. Elbow extensors 4/5. Business Database Analyst strong. Right Lower Extremity: Hip flexors 3-/5. Hip abductors 4- /5. Knee flexors 3+ /5. Knee extensors 3+ /5. Ankle dorsiflexors 4 /5. Ankle plantarflexors 4 /5. Left Lower Extremity:Hip flexors 4/5. Hip abductors 4/5. Knee flexors 4/5. Knee extensors 4/5. Ankle dorsiflexors 4/5. Ankle plantarflexors 4/5. Sensation: Intact as to pain and pressure on left lower extremity. Patient reports residual numbness on the right lower extremity. Bed Mobility/Transfers: Rolling supervision Supine to sit supervision Sit to supine supervision Sit to stand supervision Stand to sit supervision Bed to chair supervision Chair to bed supervision Gait: Patient tolerated short distance ambulation of about 100 feet using the front wheeled walker with supervision. Reciprocal step to gait pattern. Balance: Static Sitting: Normal Dynamic Sitting: Normal Static Standing: Fair Dynamic Standing: Fair Assessment: Difficulty in walking, need for assistive device, generalized weakness, and impairment in balance awareness resulting from postoperative status. Patient is an 83-year-old female with past medical history significant for polymyalgia rheumatica who presented to the ED on 05/03/2019 due to a mechanical fall onto her right hip while retrieving mail outside her house. She is diagnosed with a right valgus impacted femoral neck fracture and is status post percutaneous skeletal fixation on postoperative day 1 on day of discharge. Patient presented with clinical signs and symptoms consistent with current/admitting diagnoses that have resulted to mobility limitations, gait instability, generalized weakness, and impairment of motor control as demonstrated by the following impairment level findings: 1. Decreased strength to B LE major muscle groups 2. Impaired standing balance 3. Impaired activity tolerance 4. Limitation of joint range of motion in right hip Impairments contributed to g to the following functional limitations: 1. Inability to safely ambulate without assistive device and physical assistance 2. Increase completion time for mobility ADL performance 3. Increased fall risk 4. Inability to negotiate steps alone safely Goals: Goals X1 week 1. Supine-Sit independent NOT MET 2. Sit-Supine independent NOT MET 3. Sit-Stand independent NOT MET 4. Stand-Sit independent NOT MET 5. Bed-Chair independent NOT MET 6. Chair-Bed independent NOT MET 7. Independent gait on level surface with use of least restrictive device for at least 300 feet without report of pain nor dyspnea NOT MET 8. Independent stair negotiation while holding onto bilateral rails for at least 5 steps without report of pain nor dyspnea NOT MET 9. Independent with home exercise program NOT MET 10. Good static and dynamic standing balance/tolerance NOT MET DISCHARGE RECOMMENDATIONS: Patient will benefit from home health PT services in order to progress mobility level using least restrictive assistive ambulatory device, assess home safety, identify additional equipment needs, and establish a functional maintenance program that will increase ability of patient to remain at home. TREATMENT CODE/TIME: AR Thank you very much for this referral. Denise Ramirez PT, DPT, CLT [facility] [place], [place]
== END 2019-05-05 15:06 | disposition home or self-care (01) | DRG 481 ==
LOC: ER 22:05 → ICU 22:33 → MS 05-05 07:27 → ICU 05-11 12:05
PROVIDERS: Student in an Organized Health Care Education/Training Program; Admitting Provider General Practice; Emergency Provider Emergency Medicine; PCP Family Medicine; Visit Provider Internal Medicine
PROC: 0QS634Z Reposition Right Upper Femur with Internal Fixation Device, Percutaneous Approach (ICD-10-PCS; CPT 27235; principal; 2019-05-04 14:00)
DX: S72.011A Unspecified intracapsular fracture of right femur, initial encounter for closed fracture (principal); I48.92 Unspecified atrial flutter; W19.XXXA Unspecified fall, initial encounter; G89.18 Other acute postprocedural pain; M25.551 Pain in right hip; M35.3 Polymyalgia rheumatica; I48.0 Paroxysmal atrial fibrillation; K21.9 Gastro-esophageal reflux disease without esophagitis; Z79.52 Long term (current) use of systemic steroids
CPT/HCPCS: 27235; 36415; 51702; 73552; 76942; 80048; 80053; 86850; 86900; 86901; 93005; 96361; 96374; 96376; 97110; 97162; 97530; 99222; 99223; 99233; 99239; 99255; 99285; NC; 71045; 73501; 73502; 73700; 80329; 81003; 81015; 85025; 93010; 99284; J0131; J0690; J1100; J1650; J1720; J2001; J2370; J2405; J3010; J7512

== ENCOUNTER 2019-05-23 09:39 | Outpatient (CLI) | payer MEDICARE, OTHER, SELFPAY ==
--- NOTE | 2019-05-23 09:20 | DI.RAD_ITS ---
EXAM: XR HIP RT AP LAT ONLY CLINICAL HISTORY: AP/LAT TECHNIQUE: 2D digital imaging was performed. COMPARISON: XR HIP RT COMPLETE AP PELVIS from 05/03/2019 XR HIP RT IN OR from 05/04/2019 FINDINGS: Has been no change in alignment of the subcapital fracture or change in alignment of the partially t hreaded screws when compared with the intraoperative images.
== END 2019-05-23 09:59 ==
PROVIDERS: PCP Family Medicine; Referring Provider Family Medicine; Visit Provider Student in an Organized Health Care Education/Training Program
DX: S72.011D Unspecified intracapsular fracture of right femur, subsequent encounter for closed fracture with routine healing (principal); S72.001D Fracture of unspecified part of neck of right femur, subsequent encounter for closed fracture with routine healing; X58.XXXD Exposure to other specified factors, subsequent encounter
CPT/HCPCS: 73502

== ENCOUNTER 2019-08-22 09:53 | Outpatient (CLI) | payer MEDICARE, OTHER, SELFPAY ==
--- NOTE | 2019-08-22 09:30 | DI.RAD_ITS ---
EXAM: XR HIP RT AP LAT ONLY CLINICAL HISTORY: right hip fracture. TECHNIQUE: 2D digital imaging was performed. COMPARISON: CR XR HIP RT AP LAT ONLY from 05/23/2019 FINDINGS: There again seen 3 partially threaded screws transfixing the subcapital fracture of the right proxima l femur. No change in alignment of the orthopedic hardware or fracture components is noted. Vascula r calcifications are seen in the soft tissues. IMPRESSION: Stable right hip. DATA REPOSITORY: RADIATION DOSE DELIVERED:
== END 2019-08-22 10:13 ==
PROVIDERS: PCP Family Medicine; Referring Provider Family Medicine; Visit Provider Student in an Organized Health Care Education/Training Program
DX: S72.011D Unspecified intracapsular fracture of right femur, subsequent encounter for closed fracture with routine healing (principal); X58.XXXD Exposure to other specified factors, subsequent encounter; M70.61 Trochanteric bursitis, right hip; M70.62 Trochanteric bursitis, left hip; R26.2 Difficulty in walking, not elsewhere classified
CPT/HCPCS: 99213; 73502

== ENCOUNTER 2019-09-14 09:12 | Inpatient (IN) | payer MEDICARE, OTHER, SELFPAY ==
[2019-09-14] VITALS (139 sets, daily range): BP systolic 71–135; BP diastolic 36–99; PULSE 57–158; RESP 11–42; TEMP 36.5–36.7; O2SAT 81–100
--- NOTE | 2019-09-14 09:00 | RT.EKG_ITS ---
APPROVED REPORT Exam: Resting ECG Patient Location: E HR:134 bpm ECG Measurements Heart Rate 134 AXIS MD [id number] P [id number] QRSd 80 QRS 4 QT 326 T 83 QTc 488 <Conclusion> Atrial fibrillation...V-rate 99-176, irreg A-activity Probable LVH with secondary repol abnrm...multiple LVH criteria
--- NOTE | 2019-09-14 09:15 | DI.RAD_ITS ---
EXAM: XR CHEST 2V PA LATERAL CLINICAL HISTORY: weakness, vomiting, fall TECHNIQUE: 2D digital imaging was performed. COMPARISON: CR XR CHEST 2V PA LATERAL from 09/21/2018 FINDINGS: MEDIASTINUM: Normal. HEART: Normal. PULMONARY VASCULATURE: Normal. LUNGS: No focal consolidating infiltrates. PLEURAL SPACE: No pleural effusion or pneumothorax. BONE:Normal. OTHER FINDINGS:Poor inspiration. IMPRESSION: No acute pulmonary findings. DATA REPOSITORY: RADIATION DOSE DELIVERED:
--- NOTE | 2019-09-14 09:29 | ED.GENADUL_ITS ---
Discharge Plan Disposition Patient Disposition: [facility] INPATIENT Condition: Stable Discharge Details Chief Complaint: HeadInjury Clinical Impression: Forehead laceration, Closed head injury, Vomiting, Generalized weakness, Elevated troponin Admit Date/Time: 09/14/19 15:20 Admit Provider: Yesenia Basilio Attending Provider: Yesenia Basilio Primary Care Provider: Andrez Anthony ED Provider: Aggie Hopson Discharge Data Discharge Date/Time-TO BE ENTERED AT DEPARTURE: 09/14/19 17:45 Medical Decision Making 09 -- 83-year-old female with a history of hyponatremia, paroxysmal atrial fibrillation on metoprolol, GERD, hypertension, polymyalgia rheumatica on prednisone and migraine headaches presents with headache and vomiting for the past few days and fall with head injury at home this morning. Report of decreased responsiveness in route per EMS which appeared resolved on arrival to ED. Heart rate 130s to 150s and irregular consistent with atrial fibrillation on monitor and EKG. No acute ST ischemic findings on EKG. She is oriented x3. She has a right forehead laceration but no other evidence of trauma. She has no focal deficits. Lungs clear abdomen soft and nontender. Case discussed with son over the phone prior to patient's arrival and he states that she has had declining cognitive ability over the past few years. He states he last saw at 8 PM last night and she was at her baseline. He was informed of her fall this morning by her Sister Edith. He states that patient is DNR/DNI and would not want any acute intervention. Differential diagnosis includes acute GI viral illness, UTI, pneumonia, CVA, etc. History and presentation not consistent with meningitis, subarachnoid hemorrhage. She denies any headache at present and only complaining of weakness. We will place an IV, screening labs, urinalysis, CT head and cervical spine, chest x-ray, urinalysis and bolus IV fluids. She has not taken her metoprolol for 2 days. Will give a dose of Lopressor and Zofran and reassess. 1130 --labs and imaging reviewed. CT head and cervical spine and chest x-ray negative. White blood cell count 16, suspect stress response due to vomiting. Sodium 128. Potassium 3.3, will replete. Troponin negative. Patient reassessed and she still feels very weak and feels that she cannot get up from the bed. She is moving all extremities and oriented x3. We will continue IV fluids and attempt p.o. challenge and ambulate. Urinalysis still pending. Suspect patient will likely need to be admitted for observation and physical therapy. Case discussed with hospitalist who is requesting a CT abdomen and pelvis to rule out any acute abdominal abnormality. 1305 --CT abdomen pelvis negative for acute findings. Patient reassessed and she states she feels nauseous with movement. Will admit patient for observation and PT. Case discussed with hospitalist accepts patient for admission. 1500 --repeat troponin ordered by hospitalist is 1.0. Repeat EKG done which is negative for any acute findings. Patient denies any chest pain or shortness of breath. Hospitalist is requesting [facility] cardiology consult and holding on plan for admission at this time here. Case discussed with patient who is oriented x3 and son Eusebio over the phone and states that patient is DNR/DNI and would not want any cardiology intervention including cardiac catheterization, stent placement or transfer. 1530 --discussed with [facility] cardiology -suspect elevated troponin is due to demand. Reviewed EKGs and no acute recommendations for treatment. Recommends trend troponins, echo, and considering of starting anticoagulation for afib, baby aspirin, statin and observation and possible plan for outpatient stress test or zio patch if desired. Hospitalist notified of [facility] cardiology recommendations. Dr. Basilio accepts patient for admission. Medical Records Medical records reviewed: Yes I reviewed the patient's medical records. Imaging Data Radiologic Study: Radiologist's impression: CT HEAD CERVICAL SPINE WO CLINICAL HISTORY: s/p fall, lac R side of forehead. TECHNIQUE: Imaging Protocol: Axial computed tomography images with coronal and sagittal reformatted images were created and reviewed COMPARISON: CT CT HEAD WO from 09/29/2018 FINDINGS: CT Head: Ventricles and Extra axial spaces: Normal in size and morphology for the patient's age. Hemorrhage: None. Cerebral parenchyma: There are areas of decreased attenuation in the white matter consistent with small vessel ischemic disease. Midline shift: None. Brainstem/Cerebellum: Normal. Calvarium: Normal. Visualized Paranasal sinuses/Mastoids: Mild mucosal thickening in the left sphenoid sinus. The remaining sinuses are clear. Soft Tissues: Small scalp laceration overlying the right frontal bone. CT Cervical Spine: Bones: No acute fracture or subluxation. Degenerative changes are seen in the cervical spine. Soft Tissues: Unremarkable. Lung Apices: Clear. IMPRESSION: 1. No acute intracranial process. 2. No acute fracture or subluxation in the cervical spine. 3. Small scalp laceration overlying the right frontal bone. 4. Findings were discussed with the emergency department on the date of the examination. XR CHEST 2V PA LATERAL CLINICAL HISTORY: weakness, vomiting, fall TECHNIQUE: 2D digital imaging was performed. COMPARISON: CR XR CHEST 2V PA LATERAL from 09/21/2018 FINDINGS: MEDIASTINUM: Normal. HEART: Normal. PULMONARY VASCULATURE: Normal. LUNGS: No focal consolidating infiltrates. PLEURAL SPACE: No pleural effusion or pneumothorax. BONE:Normal. OTHER FINDINGS:Poor inspiration. IMPRESSION: No acute pulmonary findings. CT ABDOMEN PELVIS WO CLINICAL HISTORY: vomiting, weakness. TECHNIQUE: Imaging Protocol: Axial computed tomography images with coronal and sagittal reformatted images were created and reviewed. COMPARISON: CT CT ABDOMEN PELVIS W from 10/14/2018 FINDINGS: Patient motion artifact ABDOMEN: Lung Bases: Normal where visualized. Liver: Normal density. No measurable mass. Gallbladder and biliary tract: Status post cholecystectomy. No biliary ductal dilatation. Pancreas: Normal density, no abnormal calcifications or inflammatory process. Spleen: Normal. Kidneys: Normal size, contour and axis.No radiodense stones or obstructive uropathy. No masses seen. Adrenal glands: No mass is seen. Lymph nodes: Within normal limits. Abdominal Aorta: Abdominal portion non-dilated. Atherosclerosis. PELVIS: Bladder:Symmetric distention, no gross wall thickening. Bowel: No obstruction or bowel wall thickening. No evidence of acute appendicitis. Colonic diverticulosis but no evidence of acute diverticulitis. Peritoneal cavity: No ascites, collection or mesenteric inflammatory response Reproductive organs: Within normal limits. Bones: L5 spondylolysis and grade 2 spondylolisthesis of L5 on S1. Multilevel degenerative changes in the lumbar spine. Orthopedic screws seen in the right femoral neck. Soft Tissues: Within normal limits. IMPRESSION: No acute abdominal or pelvic process. Lab Data Lab results reviewed: Yes I reviewed the patient's lab results. Labs: 09/14/19 13:12 Blood Blood Culture - Pending 09/14/19 13:12 Blood Blood Culture - Pending 09/14/19 12:45 Urine - Reflex from Ua Urine Culture - Pending Laboratory Tests Range/Units 09/14/19 09/14/19 09/14/19 09:40 09:40 09:40 WBC (4.4-10.8) k/cumm 16.69 H RBC (4.00-5.20) m/cumm 4.91 Hgb (12.0-15.5) g/dL 14.4 Hct (36.0-46.0) % 41.2 MCV (80-95) fL 83.9 MCH (27.0-33.0) pg 29.3 MCHC (32.0-36.0) g/dL 35.0 RDW (11.7-14.6) % 14.2 Plt Count (130-400) x1000/uL 326 MPV (8.0-11.0) fL 9.9 Immature Gran % % 0.2 Neutrophils % 84.6 Lymphocytes % 5.8 Monocytes % 9.1 Eosinophils % 0.2 Basophils % 0.1 Absolute Neutrophils (1.2-6.7) k/cumm 14.12 H Absolute Lymphocytes (1.2-3.4) k/cumm 0.97 L Absolute Monocytes (0.11-0.7) k/cumm 1.52 H Absolute Eosinophils (0.0-0.7) k/cumm 0.03 Absolute Basophils (0.0-0.2) k/cumm 0.02 Differential Comment Agrees w/ instrument RBC Morphology Normal PT (9.3-11.0) sec 11.0 INR (0.9-1.1) 1.1 APTT (21.0-31.4) sec 24.4 Sodium (136-145) mmol/L 128 L Potassium (3.5-5.1) mmol/L 3.3 L Chloride (98-107) mmol/L 89 L Carbon Dioxide (21.0-32.0) mmol/L 26.1 Anion Gap (3-11) mmol/L 12.9 H BUN (7-18) mg/dL 19 H Creatinine (0.55-1.02) mg/dL 1.49 H Estimated GFR/1.73 m2 (mL/min/1.73m2) 33.42 Glucose (74-106) mg/dL 110 H Calcium (8.5-10.1) mg/dL 9.2 Magnesium (1.8-2.4) mg/dL 1.8 Total Bilirubin (0.2-1.0) mg/dL 1.0 AST (15-37) U/L 77 H ALT (14-59) U/L 127 H Alkaline Phosphatase (46-116) U/L 80 Troponin I (<0.06) ng/mL 0.05 Total Protein (6.4-8.2) g/dL 6.9 Albumin (3.4-5.0) g/dL 3.6 Urine Color (Yellow) Urine Clarity (Clear) Urine pH (5-8) Ur Specific [place] (1.005-1.025) Urine Protein (Negative) mg/dL Urine Ketones (Negative) mg/dL Urine Blood (Negative) Urine Nitrite (Negative) Urine Bilirubin (Negative) Urine Urobilinogen (Up TO 0.2) EU/dL Ur Leukocyte Esterase (Negative) Urine RBC (0-2) HPF Urine WBC (0-5) HPF Ur Epithelial Cells (Negative) HPF Urine Crystals (Negative) HPF Urine Bacteria (Negative) HPF Urine Casts (Negative) LPF Urine Mucus (Negative) Urine Other (Negative) Ur Culture Indicated? Urine Glucose (Negative) mg/dL Range/Units 09/14/19 12:45 WBC (4.4-10.8) k/cumm RBC (4.00-5.20) m/cumm Hgb (12.0-15.5) g/dL Hct (36.0-46.0) % MCV (80-95) fL MCH (27.0-33.0) pg MCHC (32.0-36.0) g/dL RDW (11.7-14.6) % Plt Count (130-400) x1000/uL MPV (8.0-11.0) fL Immature Gran % % Neutrophils % Lymphocytes % Monocytes % Eosinophils % Basophils % Absolute Neutrophils (1.2-6.7) k/cumm Absolute Lymphocytes (1.2-3.4) k/cumm Absolute Monocytes (0.11-0.7) k/cumm Absolute Eosinophils (0.0-0.7) k/cumm Absolute Basophils (0.0-0.2) k/cumm Differential Comment RBC Morphology PT (9.3-11.0) sec INR (0.9-1.1) APTT (21.0-31.4) sec Sodium (136-145) mmol/L Potassium (3.5-5.1) mmol/L Chloride (98-107) mmol/L Carbon Dioxide (21.0-32.0) mmol/L Anion Gap (3-11) mmol/L BUN (7-18) mg/dL Creatinine (0.55-1.02) mg/dL Estimated GFR/1.73 m2 (mL/min/1.73m2) Glucose (74-106) mg/dL Calcium (8.5-10.1) mg/dL Magnesium (1.8-2.4) mg/dL Total Bilirubin (0.2-1.0) mg/dL AST (15-37) U/L ALT (14-59) U/L Alkaline Phosphatase (46-116) U/L Troponin I (<0.06) ng/mL Total Protein (6.4-8.2) g/dL Albumin (3.4-5.0) g/dL Urine Color (Yellow) Yellow Urine Clarity (Clear) Clear Urine pH (5-8) 7.0 Ur Specific [place] (1.005-1.025) 1.020 Urine Protein (Negative) mg/dL 30 H Urine Ketones (Negative) mg/dL 40 H Urine Blood (Negative) Trace-intact H Urine Nitrite (Negative) Negative Urine Bilirubin (Negative) Negative Urine Urobilinogen (Up TO 0.2) EU/dL 0.2 Ur Leukocyte Esterase (Negative) Negative Urine RBC (0-2) HPF 0-2 Urine WBC (0-5) HPF 0-2 Ur Epithelial Cells (Negative) HPF Few Urine Crystals (Negative) HPF Negative Urine Bacteria (Negative) HPF Moderate Urine Casts (Negative) LPF 3-5 hyaline Urine Mucus (Negative) Trace Urine Other (Negative) Few renal Ur Culture Indicated? Yes Urine Glucose (Negative) mg/dL Negative ECG Data Attestation: I personally reviewed and interpreted this ECG (s) as follows: Interpretation: Rate of 134, atrial fibrillation, no acute ST ovation or depression. QRS 80. QTc 488. HPI General Mode of arrival: EMS . Date/Time Provider Initiated Documentation: 09/14/19 10:16 . Limitations to Documentation: no limitations . Information obtained by: patient and family . HPI Narrative: Patient is an 83-year-old female with a history of paroxysmal atrial fibrillation, GERD, polymyalgia rheumatica, hypertension, migraines who presents for headache and vomiting over the past few days. Patient has a history of chronic headaches. She states she has been vomiting bile approximately 1-2 times daily. She last vomited yesterday. Patient states today she got up in her bedroom and none of her night lights were working and she thinks she may have tripped due to not being able to see and hit her head on possibly a stool. She denies headache at this time. EMS gave patient a dose of sublingual Zofran in route. EMS stated that patient was able to get up and ambulate onto the stretcher from her bed at home. They state in route patient was conversive and then was only responsive to sternal rub which then improved on arrival to the ED. Patient denies dizziness, blurry vision, chest pain, shortness of breath, abdominal pain, diarrhea or urinary symptoms. She denies any other injury from her fall and denies neck or back pain or other extremity pain. Related Data Home Medications Medication Instructions Recorded Confirmed B-complex with vitamin C [Super B 1 tab PO DAILY 10/04/18 09/14/19 Complex-Vitamin C] coenzyme Q10 [CoQ-10] 200 mg PO DAILY 10/04/18 09/14/19 acetaminophen 1,000 mg PO PRN PRN 10/10/18 09/14/19 prednisone 5 mg tablet 7.5 mg PO DAILY #135 tab 04/18/19 09/14/19 [id number] 1 cap PO Q6H PRN #60 cap 05/11/19 09/14/19 50 mg-325 mg-40 mg capsule cholecalciferol (vitamin D3) 25 1,000 unit PO DAILY #90 cap 05/26/19 09/14/19 mcg (1,000 unit) capsule metoprolol tartrate 25 mg tablet 25 mg PO BID #180 tab-cap 06/28/19 09/14/19 Previous Rx's Medication Instructions Recorded prednisone 5 mg tablet 7.5 mg PO DAILY #135 tab 04/18/19 [id number]-zhrolzurjbveh-aibarveo 1 cap PO Q6H PRN #60 cap 05/11/19 50 mg-325 mg-40 mg capsule cholecalciferol (vitamin D3) 25 1,000 unit PO DAILY #90 cap 05/26/19 mcg (1,000 unit) capsule metoprolol tartrate 25 mg tablet 25 mg PO BID #180 tab-cap 06/28/19 Allergies Allergy/AdvReac Type Severity Reaction Status Date / Time carbamazepine AdvReac Severe Confusion Verified 09/14/19 10:46 and disorientation morphine AdvReac Intermediate made my Verified 09/14/19 10:46 chest feel likie I was in a vice General Stated Complaint: HeadInjury HARSHAD: 2 Review of Systems All systems reviewed & are unremarkable except as noted in HPI and below Constitutional Constitutional: Reports as per HPI, Denies chills and Denies fever(s) Eyes Eyes: Denies blurry vision ENT Ears, Nose, Mouth, and Throat: Denies dizziness, Denies sore throat and Denies throat swelling Cardiovascular Cardiovascular: Denies chest pain and Denies dyspnea Respiratory Respiratory: Denies cough and Denies dyspnea Gastrointestinal Gastrointestinal: Denies abdominal pain, Denies diarrhea and Reports vomiting Genitourinary Genitourinary: Denies hematuria and Denies dysuria Musculoskeletal Musculoskeletal: Denies back pain and Denies numbness Integumentary/Breasts Skin/Breast: Denies lesions and Denies rash Neurologic Neurologic: Denies dizziness, Denies localized weakness and Denies numbness Allergic/Immunologic Allergic/Immunologic: Denies throat swelling PFSH Surgical History Cholecystectomy (~01/2007) Closed right hip fracture (Acute 05/03/19) S/P ORIF with cannulated screw fixation on 05/04/2019 Colonoscopy - MAC Hemorrhoidal Banding (04/27/17) Status post cataract extraction and insertion of intraocular lens of left eye (Chronic 05/02/18) Status post cataract extraction and insertion of intraocular lens of right eye (Chronic 05/16/18) Social History Smoking/Tobacco Use Status: Never Alcohol Intake: never Drug use: Never Substance use type: does not use current occupation: [employer] Pets and animals: No What type of physical activity do you participate in: none Jennifer/Yazidi: Yarsani Special jennifer needs: No Do you feel safe at home: Yes Do you feel safe in your relationship?: Yes Exam Const General: cooperative and no acute distress Orientation: alert, awake and oriented x3 HENMT Head: normal to inspection Ears: hearing grossly normal bilaterally, external ears normal and TM's normal bilaterally General nose exam: external nose normal Face and sinus: normal facial exam Face images: 1. Cross shaped laceration noted to right forehead. There is dried blood surrounding the laceration. No active oozing or pulsatile bleeding. Mouth: oral mucosae normal Teeth and gingiva: dentition normal Throat: posterior oropharynx normal Eyes General: appearance normal, both eyes and all related structures Eyelids: eyelids normal Pupils: PERRL EOM: EOM intact bilaterally Neck Neck: normal visual inspection Lymphatic: no lymphadenopathy noted Chest Chest: normal inspection of the chest, normal palpation of entire chest wall and no tenderness Resp Effort & Inspection: normal respiratory effort and able to speak in complete sentences Auscultation: clear to auscultation bilaterally Cardio Rate: tachycardic Rhythm: abnormal rhythm irregularly irregular GI Inspection: normal to inspection and no abdominal wall ecchymosis Palpation: soft, not firm, no guarding, no hepatosplenomegaly, no masses and nontender Auscultation: normal bowel sounds Back/Spine/Pelvis Cervical Spine: No cervical spinal tenderness Thoracic/Lumbar Spine: thoracic and lumbar spine normal to inspection, No thoracic spinal tenderness and No lumbar spinal tenderness Pelvis: no pain with anterior-posterior compression Skin General skin exam: no rashes or lesions noted Neuro General: patient alert, patient awake, patient oriented x3, moves all extremities, no meningeal signs and no focal motor deficits Cranial Nerves: CN's II-XI intact bilaterally Cognition: normal cognition Speech: speech normal Motor: muscle tone normal throughout and strength 5/5 throughout Sensory Exam: no sensory deficits noted Extrem General: normal to inspection, full ROM and capillary refill normal Psych Appearance: grossly normal Mental Status: mental status grossly normal Speech and Movement: speech and movement normal Affect: normal affect Thought Process: normal Course Vital Signs Vital signs: Vital Signs Temperature 97.7 F 09/14/19 09:13 Pulse 139 H 09/14/19 09:13 Respiratory Rate 16 09/14/19 09:13 Pulse Oximetry 98 09/14/19 09:13 Temperature 97.7 F 09/14/19 09:13 Temperature Source Skin 09/14/19 09:13 Pulse 139 H 09/14/19 09:13 Respiratory Rate 16 09/14/19 09:13 Pulse Oximetry 99 09/14/19 09:24 Oxygen Delivery Method Nasal Cannula 09/14/19 09:24 Oxygen Flow Rate 2 09/14/19 09:24 Procedures Laceration Laceration 1: Site: face Side (If applicable): right Size (cm): 2 Description: linear Depth: simple, single layer Local Anesthetic: Lidocaine 1% and with Epi Amount of anesthesia used (mL): 7 Pre-repair: wound explored, irrigated extensively and deep structures intact Skin layer closed with: nylon Size (cm): 6-0 Number of sutures: 5 Technique: simple, interrupted
[2019-09-14] MEDS: Normal Saline 500 ML IV (09:45)
[2019-09-14 09:55] LABS: Abs Immature Grans 0.04 k/cumm (0.0-0.09); Absolute Lymphocyte Count 0.97 k/cumm (1.2-3.4); Absolute Monocyte Count 1.52 k/cumm (0.11-0.7); Basophils % 0.1; Eosinophils % 0.2; HCT 41.2 % (36.0-46.0); HGB 14.4 g/dL (12.0-15.5); Immature Grans % 0.2 %; Lymphocytes % 5.8; Mean Corpuscular Hemoglobin 29.3 pg (27.0-33.0); Mean Corpuscular Volume 83.9 fL (80-95); Mean Platelet Volume 9.9 fL (8.0-11.0); Monocytes % 9.1; Neutrophils % 84.6; Platelet Count 326 x1000/uL (130-400); RBC 4.91 m/cumm (4.00-5.20); RBC Distribution Width 14.2 % (11.7-14.6); White Blood Cell Count 16.69 k/cumm (4.4-10.8)
[2019-09-14 10:02] LABS: Absolute Basophil Count 0.02 k/cumm (0.0-0.2); Absolute Eosinophil Count 0.03 k/cumm (0.0-0.7); Absolute Neutrophil Count 14.12 k/cumm (1.2-6.7)
[2019-09-14 10:10] LABS: INR 1.1 (0.9-1.1); PTT Activated 24.4 sec (21.0-31.4)
--- NOTE | 2019-09-14 10:10 | DI.CT_ITS ---
EXAM: CT HEAD CERVICAL SPINE WO CLINICAL HISTORY: s/p fall, lac R side of forehead. TECHNIQUE: Imaging Protocol: Axial computed tomography images with coronal and sagittal reformatted images were created and reviewed COMPARISON: CT CT HEAD WO from 09/29/2018 FINDINGS: CT Head: Ventricles and Extra axial spaces: Normal in size and morphology for the patient's age. Hemorrhage: None. Cerebral parenchyma: There are areas of decreased attenuation in the white matter consistent with sma ll vessel ischemic disease. Midline shift: None. Brainstem/Cerebellum: Normal. Calvarium: Normal. Visualized Paranasal sinuses/Mastoids: Mild mucosal thickening in the left sphenoid sinus. The remai alhaji sinuses are clear. Soft Tissues: Small scalp laceration overlying the right frontal bone. CT Cervical Spine: Bones: No acute fracture or subluxation. Degenerative changes are seen in the cervical spine. Soft Tissues: Unremarkable. Lung Apices: Clear. IMPRESSION: 1. No acute intracranial process. 2. No acute fracture or subluxation in the cervical spine. 3. Small scalp laceration overlying the right frontal bone. 4. Findings were discussed with the emergency department on the date of the examination. RADIATION DOSE DELIVERED: Total DLP DATA REPOSITORY: All CT scans at this facility are submitted to the National Radiology Data Registry (NRDR) Dose Index Registry (DIR) with the [employer] ([employer]). RADIATION OPTIMIZATION: All CT scans at this facility use at least one of these dose optimization te chniques: automated exposure control; mA and/or kV adjustment per patient size (includes targeted exa ms where dose is matched to clinical indication); or iterative reconstruction.
[2019-09-14 10:11] LABS: Diff Comment Agrees w/ Instrument; RBC Morphology Normal
[2019-09-14 10:12] LABS: ALT 127 U/L (14-59); AST 77 U/L (15-37); Albumin 3.6 g/dL (3.4-5.0); Alkaline Phosphatase 80 U/L (46-116); Anion Gap 12.9 mmol/L (3-11); BUN 19 mg/dL (7-18); CO2 26.1 mmol/L (21.0-32.0); CREATININE 1.49 mg/dL (0.55-1.02); Calcium 9.2 mg/dL (8.5-10.1); Chloride 89 mmol/L (98-107); Estimated GFR 33.42 (mL/min/1.73m2); Glucose 110 mg/dL (74-106); Magnesium 1.8 mg/dL (1.8-2.4); Potassium 3.3 mmol/L (3.5-5.1); Sodium 128 mmol/L (136-145); Total Protein 6.9 g/dL (6.4-8.2); Troponin I 0.05 ng/mL (<0.06)
[2019-09-14] MEDS: Metoprolol 5 MG/5 ML VIAL IVP (10:22)
[2019-09-14] MEDS: Ondansetron 4 MG/2 ML VIAL IVP (10:22)
--- NOTE | 2019-09-14 12:10 | DI.CT_ITS ---
EXAM: CT ABDOMEN PELVIS WO CLINICAL HISTORY: vomiting, weakness. TECHNIQUE: Imaging Protocol: Axial computed tomography images with coronal and sagittal reformatted images were created and reviewed. COMPARISON: CT CT ABDOMEN PELVIS W from 10/14/2018 FINDINGS: Patient motion artifact ABDOMEN: Lung Bases: Normal where visualized. Liver: Normal density. No measurable mass. Gallbladder and biliary tract: Status post cholecystectomy. No biliary ductal dilatation. Pancreas: Normal density, no abnormal calcifications or inflammatory process. Spleen: Normal. Kidneys: Normal size, contour and axis.No radiodense stones or obstructive uropathy. No masses seen. Adrenal glands: No mass is seen. Lymph nodes: Within normal limits. Abdominal Aorta: Abdominal portion non-dilated. Atherosclerosis. PELVIS: Bladder:Symmetric distention, no gross wall thickening. Bowel: No obstruction or bowel wall thickening. No evidence of acute appendicitis. Colonic diverticu losis but no evidence of acute diverticulitis. Peritoneal cavity: No ascites, collection or mesenteric inflammatory response Reproductive organs: Within normal limits. Bones: L5 spondylolysis and grade 2 spondylolisthesis of L5 on S1. Multilevel degenerative changes in the lumbar spine. Orthopedic screws seen in the right femoral neck. Soft Tissues: Within normal limits. IMPRESSION: No acute abdominal or pelvic process. Findings were discussed with the emergency department on the date of the examination. RADIATION DOSE DELIVERED: Total DLP DATA REPOSITORY: All CT scans at this facility are submitted to the National Radiology Data Registry (NRDR) Dose Index Registry (DIR) with the [employer] ([employer]CR). RADIATION OPTIMIZATION: All CT scans at this facility use at least one of these dose optimization te chniques: automated exposure control; mA and/or kV adjustment per patient size (includes targeted exa ms where dose is matched to clinical indication); or iterative reconstruction.
[2019-09-14 12:52] LABS: Bilirubin Negative (Negative); Blood Trace-intact (Negative); Clarity Clear (Clear); Glucose Negative (Negative); Ketones 40 mg/dL (Negative); Leukocyte Esterase Negative (Negative); Nitrite Negative (Negative); Urobilinogen 0.2 EU/dL (Up TO 0.2)
[2019-09-14 13:07] LABS: Bacteria Moderate HPF (Negative); C & S Indicated? Yes; Casts 3-5 Hyaline LPF (Negative); Crystals Negative HPF (Negative); Epithelial Cells Few HPF (Negative); Mucus Trace (Negative); Other Cells Few Renal (Negative); RBC 0-2 HPF (0-2); WBC 0-2 HPF (0-5)
[2019-09-14] MEDS: Prochlorperazine 10 MG/2 ML VIAL IVP (13:07)
[2019-09-14] MEDS: Normal Saline 50 ML 200 ML (13:07)
[2019-09-14] MEDS: Normal Saline Flush 10 ML SYR IVP ×2 (13:08→18:31)
[2019-09-14] MEDS: Potassium Chloride 20 MEQ TABCR 40 MEQ PO (13:08)
[2019-09-14] MEDS: Normal Saline 1,000 ML 75 ML IV (13:20)
[2019-09-14 13:57] LABS: Creatine Kinase 115 U/L (26-192); Lipase 80 U/L (73-393)
[2019-09-14 14:20] LABS: Lactate 1.6 mmol/L (0.6-1.4)
--- NOTE | 2019-09-14 14:45 | RT.EKG_ITS ---
APPROVED REPORT Exam: Resting ECG Patient Location: E HR:87 bpm ECG Measurements Heart Rate 87 AXIS AL 161 P 31 QRSd 73 QRS 3 QT 351 T 80 QTc 422 <Conclusion> Sinus rhythm...normal P axis, V-rate 60- 99. No acute ST elevation or depression.
[2019-09-14 15:40] LABS: Procalcitonin 108.4 ng/mL
--- NOTE | 2019-09-14 17:25 | W.PM.HP.N ---
Date of service: 09/14/19 Time of Service: 17:25 Assessment and Plan Assessment and plan (1) Elevated troponin: Status: Acute Assessment and plan: Likely NSTEMI, In setting of a fall followed by a syncopal episode in the ambulance, also rapid afib in the ED. I question an arrhythmic event. Will attempt to find out any record of whether the patient was on a monitor in the ambulance. [facility] cardiology recommends asa. Chest pain free. I would not put on heparin gtt/plavix in light of recent head injury. Consult palliative care, but for now monitor in the ICU. (2) Syncope: Status: Chronic Assessment and plan: ?post-concussive vs due to arrhythmia/hypotension/hypoperfusion. This could also have, in fact, been a seizure. At this time, continue to trend troponins, monitor on alarm security or surveillance monitor. As above (3) Closed head injury: Status: Acute Assessment and plan: Monitor neuro checks in the ICU. Avoid chemical dvt ppx for now. (4) Post concussive syndrome: Status: Acute Assessment and plan: As above (5) Paroxysmal atrial fibrillation with rapid ventricular response: Status: Resolved Assessment and plan: Presently in NSR - may have been the cause of fall, syncope in the ambulance, elevated troponin. Obtain echo. No anticoagulation due to frequent falls. (6) Vomiting: Status: Acute Assessment and plan: Cause not 100% clear. Could be due to gastritis, migraines, GERD, adrenal insufficiency, celiac disease, etc. CT of the abdomen/pelvis was negative. No vomiting at this time. Will provide IV hydrocortisone as the patient likely has not been absorbing her prednisone if she has been vomiting. Provide PPI, carafate. Trial clears. (7) Forehead laceration: Status: Acute Assessment and plan: sutured in the ED. Will provide wound care. (8) Adrenal insufficiency: Status: Acute Assessment and plan: Provide stress dose steroids. (9) Encephalopathy acute: Status: Acute Assessment and plan: Multifactorial, due to closed head injury, post-concussive syndrome, hyponatremia. Monitor neurochecks in the ICU. (10) Hyponatremia: Status: Acute Assessment and plan: Multifactorial - due to SIADH and adrenal insufficiency. For now, provide stress dose steroids and gentle IVF. 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 At this time, clinically dehydrated - will relax it. Once euvolemic, will restric fluids. (12) PMR (polymyalgia rheumatica): Status: Chronic Assessment and plan: Possibly responsible for weakness. Check ESR/CRP, consult PT. Stress dose steroids. (13) Hypokalemia: Status: Acute Assessment and plan: Repleted. Recheck in am (14) Ambulatory dysfunction: Status: Acute Assessment and plan: PT/OT consulted. (15) Discharge planning issues: Status: Acute Assessment and plan: DNR/DNI. Consult palliative care Admit to the ICU. Total Critical Care Time 60 minutes. (16) DVT prophylaxis: Status: Acute Assessment and plan: TEDs/SCDs History of Present Illness History of Present Illness Chief Complaint: Fall, nausea and vomiting. I'd rather be sleeping. Narrative: Ms Rodriguez is an 83 year old female with PMHx of Afib/flutter, not on anticoagulation due to multiple falls at home, as well as history of SIADH, PMR on prednisone with secondary chronic adrenal insufficiency, and chronic headaches/migraines, who was brought in to the ED by ambulance after sustaining a fall at home today at 7 am and hitting her head. The patient is not able to provide her history for me - she says she does not remember what happened, so the history is primarily obtained from the ED provider. The patient is said to have been vomiting twice a day for the last week and complaining of headache, but not neck pain or fevers. The circumstances of her fall this am are not clear, and it's not known if it was witnessed. The patient became unresponsive en route to ED, but we do not know if the patient was on the cardiac montior at the time. When she arrived to the ED, she was said to be A&Ox3, sleepy, and to have a R forehead laceration which was sutured. She was in rapid Afib with HR in 130's with diffuse ST segment depressions. This was treated with 5 mg of IV lopressor with HR going down to 70's. The patient has been chest pain free the entire time in the ED including on my interview with her. Her CT of the head and neck were negative. She was found to be hyponatremic to 128 and to have a white count of 16 without an obvious source. Her initial troponin was negative, but repeat was 1. She had not had any arrhythmic events while in the ED, and her EKG showed mild diffuse nonspecific ST depressions. Reportedly, the patient verbalized not wanting transfer to a tertiary care facility to the ED provider, as did her son. The patient was initiated on asa 325 mg after a conversation with [facility] cardiology, who felt this was likely demand ischemia. A stress test would be recommended only if the patient wanted to do something about the result. Hospitalists were asked to admit the patient for further care. Review of Systems Narrative: 12 systems attempted to be reviewed. The patient specifically denies pain, dizziness, headache, chest discomfort, shortness of breath, nausea, and abdominal pain at this time. She does not remember what happened today and makes it clear that she would rather be sleeping. [facility] Social History Smoking/Tobacco Use Status: Never Alcohol Intake: never Drug use: Never Substance use type: does not use current occupation: [employer] Pets and animals: No What type of physical activity do you participate in: none Jennifer/Oriental [employer]: Faith Special jennifer needs: No Do you feel safe at home: Yes Do you feel safe in your relationship?: Yes Meds Home Medications and Allergies Home Medications Medication Instructions Recorded Confirmed Type B-complex with vitamin C [Super B 1 tab PO DAILY 10/04/18 09/14/19 History Complex-Vitamin C] coenzyme Q10 [CoQ-10] 200 mg PO DAILY 10/04/18 09/14/19 History acetaminophen 1,000 mg PO PRN PRN 10/10/18 09/14/19 History prednisone 5 mg tablet 7.5 mg PO DAILY #135 tab 04/18/19 09/14/19 Rx zppvsptbsm-ijsmdijzyhjrx-ewqmmmbc 1 cap PO Q6H PRN #60 cap 05/11/19 09/14/19 Rx 50 mg-325 mg-40 mg capsule cholecalciferol (vitamin D3) 25 1,000 unit PO DAILY #90 cap 05/26/19 09/14/19 Rx mcg (1,000 unit) capsule metoprolol tartrate 25 mg tablet 25 mg PO BID #180 tab-cap 06/28/19 09/14/19 Rx Allergies Allergy/AdvReac Type Severity Reaction Status Date / Time carbamazepine AdvReac Severe Confusion Verified 09/14/19 10:46 and disorientation morphine AdvReac Intermediate made my Verified 09/14/19 10:46 chest feel likie I was in a vice Exam Narrative Exam Narrative: General: Elderly female, somnolent, arousable, A&Ox2 (initially thinks she is in [place], then remembers that she is in [facility]) Neurological: A&Ox2, somnolent, arousable, no focal deficits, CN II-XII intact, sensory intact, 5/5 strength in all extremities Psychiatric: Difficult to fully assess due to mental status Skin: Laceration/hematoma R forehead HEENT: EOMI, dry MM, clear oropharynx, no submandibular or cervical lymphadenopathy, no goiter or JVD Cardiovascular: RRR, +YUE Lungs: CTAB Gastrointestinal: soft, nontender, nondistended Genitourinary: deferred Extremities: no e/c/c BLE's Results Imaging Additional studies: CXR: No acute pulmonary findings. CT head/c-spine: 1. No acute intracranial process. 2. No acute fracture or subluxation in the cervical spine. 3. Small scalp laceration overlying the right frontal bone. 4. Findings were discussed with the emergency department on the date of the examination. CT abdomen/pelvis w/o IV or PO contrast: No acute abdominal or pelvic process. EKG #1: Afib, HR 134, diffuse ST-T changes, no acute ischemia EKG #2: NSR, HR 87, no acute ischemia Labs Result diagrams: 09/14/19 09:40 09/14/19 09:40 Labs: Laboratory Results - last 24 hr 09/14/19 09/14/19 09/14/19 09:40 09:40 09:40 WBC 16.69 H RBC 4.91 Hgb 14.4 Hct 41.2 MCV 83.9 MCH 29.3 MCHC 35.0 RDW 14.2 Plt Count 326 MPV 9.9 Immature Gran % 0.2 Neutrophils % 84.6 Lymphocytes % 5.8 Monocytes % 9.1 Eosinophils % 0.2 Basophils % 0.1 Absolute Neutrophils 14.12 H Absolute Lymphocytes 0.97 L Absolute Monocytes 1.52 H Absolute Eosinophils 0.03 Absolute Basophils 0.02 Differential Comment Agrees w/ instrument RBC Morphology Normal PT 11.0 INR 1.1 APTT 24.4 Sodium 128 L Potassium 3.3 L Chloride 89 L Carbon Dioxide 26.1 Anion Gap 12.9 H BUN 19 H Creatinine 1.49 H Estimated GFR/1.73 m2 33.42 Glucose 110 H Lactate Calcium 9.2 Magnesium 1.8 Total Bilirubin 1.0 AST 77 H ALT 127 H Alkaline Phosphatase 80 Creatine Kinase 115 Troponin I 0.05 Total Protein 6.9 Albumin 3.6 Lipase 80 Procalcitonin Urine Color Urine Clarity Urine pH Ur Specific [place] Urine Protein Urine Ketones Urine Blood Urine Nitrite Urine Bilirubin Urine Urobilinogen Ur Leukocyte Esterase Urine RBC Urine WBC Ur Epithelial Cells Urine Crystals Urine Bacteria Urine Casts Urine Mucus Urine Other Ur Culture Indicated? Urine Glucose 09/14/19 09/14/19 09/14/19 12:45 14:10 14:10 WBC RBC Hgb Hct MCV MCH MCHC RDW Plt Count MPV Immature Gran % Neutrophils % Lymphocytes % Monocytes % Eosinophils % Basophils % Absolute Neutrophils Absolute Lymphocytes Absolute Monocytes Absolute Eosinophils Absolute Basophils Differential Comment RBC Morphology PT INR APTT Sodium Potassium Chloride Carbon Dioxide Anion Gap BUN Creatinine Estimated GFR/1.73 m2 Glucose Lactate 1.6 H Calcium Magnesium Total Bilirubin AST ALT Alkaline Phosphatase Creatine Kinase Troponin I 1.00 H* Total Protein Albumin Lipase Procalcitonin 108.4 Urine Color Yellow Urine Clarity Clear Urine pH 7.0 Ur Specific [place] 1.020 Urine Protein 30 H Urine Ketones 40 H Urine Blood Trace-intact H Urine Nitrite Negative Urine Bilirubin Negative Urine Urobilinogen 0.2 Ur Leukocyte Esterase Negative Urine RBC 0-2 Urine WBC 0-2 Ur Epithelial Cells Few Urine Crystals Negative Urine Bacteria Moderate Urine Casts 3-5 hyaline Urine Mucus Trace Urine Other Few renal Ur Culture Indicated? Yes Urine Glucose Negative Last Vital Signs Temp 36.5 C 09/14/19 09:13 Pulse 96 H 09/14/19 16:45 Resp 14 09/14/19 16:50 BP 114/50 L 09/14/19 16:45 Pulse Ox 95 09/14/19 16:50 COVID-19 Screening Have you,or household,traveled outside [place] in last 14 days?: No Had IN PERSON contact w/suspected or confirmed C-19 person: No
[2019-09-14] MEDS: Hydrocortisone SOD SUC. 100 MG VIAL IVP (18:34)
[2019-09-14] MEDS: Pantoprazole 40 MG VIAL IVP (18:34)
[2019-09-14] MEDS: Metoprolol 25 MG TAB PO (20:39)
[2019-09-14] MEDS: Sucralfate 1 GM TAB PO (21:05)
[2019-09-14] MEDS: Mylanta Suspension 30 ML CUP PO (21:07)
[2019-09-14] MEDS: Acetaminophen 325 MG TAB PO (21:08)
[2019-09-14 22:27] LABS: Troponin I 1.27 ng/mL (<0.06)
[2019-09-15] VITALS (97 sets, daily range): BP systolic 105–159; BP diastolic 48–98; PULSE 62–97; RESP 10–30; TEMP 36.1–36.4; O2SAT 94–98
--- NOTE | 2019-09-15 | RT.EKG_ITS ---
APPROVED REPORT Exam: Resting ECG Patient Location: I HR:65 bpm ECG Measurements Heart Rate 65 AXIS [place] 163 P 50 QRSd 73 QRS 1 QT 411 T 46 QTc 428 <Conclusion> Sinus rhythm...normal P axis, V-rate 60- 99 Normal Electrocardiogram
[2019-09-15] MEDS: Normal Saline Flush 10 ML SYR IVP ×2 (00:53→20:36)
[2019-09-15] MEDS: Hydrocortisone SOD SUC. 100 MG VIAL 50 MG IVP ×5 (00:53→23:32)
[2019-09-15] MEDS: Normal Saline 1,000 ML 75 ML IV (06:02)
[2019-09-15 07:11] LABS: Abs Immature Grans 0.04 k/cumm (0.0-0.09); Absolute Eosinophil Count 0.01 k/cumm (0.0-0.7); Absolute Lymphocyte Count 0.52 k/cumm (1.2-3.4); Absolute Monocyte Count 0.52 k/cumm (0.11-0.7); Absolute Neutrophil Count 9.47 k/cumm (1.2-6.7); Eosinophils % 0.1; HCT 38.6 % (36.0-46.0); Immature Grans % 0.4 %; Lymphocytes % 4.9; Mean Corp. HGB Concentration 33.7 g/dL (32.0-36.0); Mean Corpuscular Hemoglobin 29.1 pg (27.0-33.0); Mean Corpuscular Volume 86.4 fL (80-95); Mean Platelet Volume 10.8 fL (8.0-11.0); Monocytes % 4.9; Neutrophils % 89.7; Platelet Count 296 x1000/uL (130-400); RBC 4.47 m/cumm (4.00-5.20); RBC Distribution Width 14.5 % (11.7-14.6); White Blood Cell Count 10.56 k/cumm (4.4-10.8)
[2019-09-15 07:24] LABS: Hemoglobin A1C 5.5 % (3.8-5.6)
[2019-09-15 07:26] LABS: ALT 316 U/L (14-59); AST 192 U/L (15-37); Albumin 3.1 g/dL (3.4-5.0); Alkaline Phosphatase 73 U/L (46-116); Anion Gap 11.3 mmol/L (3-11); BUN 18 mg/dL (7-18); Bilirubin, Direct 0.14 mg/dL (0.00-0.20); Bilirubin, Total 0.7 mg/dL (0.2-1.0); CO2 21.7 mmol/L (21.0-32.0); Calcium 8.5 mg/dL (8.5-10.1); Chloride 96 mmol/L (98-107); Estimated GFR 52.95 (mL/min/1.73m2); Glucose 108 mg/dL (74-106); Potassium 4.3 mmol/L (3.5-5.1); Sodium 129 mmol/L (136-145); Total Protein 6.5 g/dL (6.4-8.2)
[2019-09-15 07:46] LABS: C-Reactive Protein 2.11 mg/dL (0.0-0.3); TSH (W/Ref FT4) 0.43 uIU/mL (0.36-3.74)
[2019-09-15] MEDS: Ondansetron 4 MG/2 ML VIAL IVP (08:02)
[2019-09-15 08:03] LABS: Calculated LDL 116 mg/dL (<100); Cholesterol 209 mg/dL (<200); HDL Cholesterol 83 mg/dL (40-60); Triglyceride 50 mg/dL (<150)
[2019-09-15 08:11] LABS: ESR 19 mm/hr (0-30)
--- NOTE | 2019-09-15 08:19 | W.PM.PROGNOT ---
Date of Service Date of service: 09/15/19 Time of Service: 10:58 Assessment and Plan Assessment and plan (1) Elevated troponin: Status: Acute Assessment and plan: Likely NSTEMI, In setting of a fall followed by a syncopal episode in the ambulance, also rapid afib in the ED. I question an arrhythmic event. Consulting Cardiology. Continue asa. Palliative care consulted to help decide further goals of care. Chest pain free. I would not put on heparin gtt/plavix in light of recent head injury. Continue to monitor in the ICU for now. (2) Syncope: Status: Chronic Assessment and plan: ?post-concussive LOC vs due to arrhythmia/hypotension/hypoperfusion. This could also have, in fact, been a seizure. No arrhythmias on monitor overnight - remained in NSR. Continue cardiac monitoring. Cardiology consulted. (3) Closed head injury: Status: Acute Assessment and plan: Monitor neuro checks. Overall alertness definitely improving. Avoid chemical dvt ppx for now. (4) SIRS (systemic inflammatory response syndrome): Status: Acute Assessment and plan: No clear infectious source. Checking for strep throat, and blood cultures are still pending. No fever overnight. Elevated procalcitonin very impressive, but per my research can be due to acute adrenal insufficiency, which can also cause SIRS and is at the top of my differential dx. For now, cover with empiric vancomycin/ceftriaxone (decrease ceftriaxone dose - no suspicion for meningitis at his point). Await blood culture results. (5) Post concussive syndrome: Status: Acute Assessment and plan: As above (6) Paroxysmal atrial fibrillation with rapid ventricular response: Status: Resolved Assessment and plan: Presently in NSR - may have been the cause of fall, syncope in the ambulance, elevated troponin. Echo is not available until Wednesday. No anticoagulation due to frequent falls. (7) Vomiting: Status: Resolved Assessment and plan: Cause not 100% clear. What the patient describes today appears to be esophagitis. CT of the abdomen/pelvis was negative. No vomiting at this time. Increase PPI to BID, continue carafate. If nausea at all partially due to adrenal insufficiency, then stress dose steroids should help. Advance diet as tolerated. No plans for surgical consult at this time. Check hemoccult. (8) Forehead laceration: Status: Acute Assessment and plan: sutured in the ED. Wound care consulted. (9) Adrenal insufficiency: Status: Acute Assessment and plan: Continue stress dose steroids. Could be responsible for elevated procalcitonin as no source of sepsis. (10) Encephalopathy acute: Status: Resolved Assessment and plan: Multifactorial, due to closed head injury, post-concussive syndrome, hyponatremia. Monitor neurochecks in the ICU. (11) Hyponatremia: Status: Acute Assessment and plan: Multifactorial - due to SIADH and adrenal insufficiency. Improved. Continue stress dose steroids and gentle IVF. Once euvolemic, start fluid restriction. 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 At this time, still clinically dehydrated. I might be able to d/c fluids later today. Once euvolemic, will restric fluids. (13) PMR (polymyalgia rheumatica): Status: Chronic Assessment and plan: Possibly responsible for weakness. Continue stress dose steroids. PT consult.. (14) Hypokalemia: Status: Resolved Assessment and plan: Recheck in am (15) Ambulatory dysfunction: Status: Acute Assessment and plan: PT consulted. (16) Discharge planning issues: Status: Acute Assessment and plan: DNR/DNI. Palliative care on board. keep in the ICU (17) DVT prophylaxis: Status: Acute Assessment and plan: TEDs/SCDs Subjective Subjective Interval history since last seen: Ms Rodriguez states she is feeling better today. She is A&Ox3. She has a hard time hearing (chronic). Denies headache, visual changes, neck pain. Endorses sore throat going all the way up and down her chest. Denies shortness of breath. No h/a. Nauseated. No vomiting. Trialing clear liquids this morning - tolerating so far. 97% on room air, Afebrile. Retaining urine - hussein placed this am. Exam Narrative Exam Narrative: General: Elderly female, awake, sitting up in the chair, very alert and interactive, A&Ox3 HEENT: EOMI, dry MM, no thrush Cardiovascular: RRR, no murmur heard today Lungs: quiet crackles at B bases Gastrointestinal: soft, nontender, nondistended Genitourinary: has a hussein - clear urine Extremities: no e/c/c BLE's Objective Objective Clinical Data: Abnormal lab results 09/14/19 09/14/19 09/14/19 Range/Units 09:40 09:40 12:45 WBC 16.69 H (4.4-10.8) k/cumm Absolute Neutrophils 14.12 H (1.2-6.7) k/cumm Absolute Lymphocytes 0.97 L (1.2-3.4) k/cumm Absolute Monocytes 1.52 H (0.11-0.7) k/cumm Sodium 128 L (136-145) mmol/L Potassium 3.3 L (3.5-5.1) mmol/L Chloride 89 L (98-107) mmol/L Anion Gap 12.9 H (3-11) mmol/L BUN 19 H (7-18) mg/dL Creatinine 1.49 H (0.55-1.02) mg/dL Glucose 110 H (74-106) mg/dL Lactate (0.6-1.4) mmol/L AST 77 H (15-37) U/L ALT 127 H (14-59) U/L Troponin I (<0.06) ng/mL C-Reactive Protein (0.0-0.3) mg/dL Albumin (3.4-5.0) g/dL Total Cholesterol (<200) mg/dL LDL Cholesterol, Calc (<100) mg/dL Urine Protein 30 H (Negative) mg/dL Urine Ketones 40 H (Negative) mg/dL Urine Blood Trace-intact H (Negative) 09/14/19 09/14/19 09/14/19 Range/Units 14:10 14:10 22:02 WBC (4.4-10.8) k/cumm Absolute Neutrophils (1.2-6.7) k/cumm Absolute Lymphocytes (1.2-3.4) k/cumm Absolute Monocytes (0.11-0.7) k/cumm Sodium (136-145) mmol/L Potassium (3.5-5.1) mmol/L Chloride (98-107) mmol/L Anion Gap (3-11) mmol/L BUN (7-18) mg/dL Creatinine (0.55-1.02) mg/dL Glucose (74-106) mg/dL Lactate 1.6 H (0.6-1.4) mmol/L AST (15-37) U/L ALT (14-59) U/L Troponin I 1.00 H* 1.27 H* (<0.06) ng/mL C-Reactive Protein (0.0-0.3) mg/dL Albumin (3.4-5.0) g/dL Total Cholesterol (<200) mg/dL LDL Cholesterol, Calc (<100) mg/dL Urine Protein (Negative) mg/dL Urine Ketones (Negative) mg/dL Urine Blood (Negative) 09/15/19 09/15/19 09/15/19 Range/Units 06:10 06:10 06:10 WBC (4.4-10.8) k/cumm Absolute Neutrophils 9.47 H (1.2-6.7) k/cumm Absolute Lymphocytes 0.52 L (1.2-3.4) k/cumm Absolute Monocytes (0.11-0.7) k/cumm Sodium 129 L (136-145) mmol/L Potassium (3.5-5.1) mmol/L Chloride 96 L (98-107) mmol/L Anion Gap 11.3 H (3-11) mmol/L BUN (7-18) mg/dL Creatinine (0.55-1.02) mg/dL Glucose 108 H (74-106) mg/dL Lactate (0.6-1.4) mmol/L AST 192 H (15-37) U/L ALT 316 H (14-59) U/L Troponin I 0.50 H* (<0.06) ng/mL C-Reactive Protein 2.11 H (0.0-0.3) mg/dL Albumin 3.1 L (3.4-5.0) g/dL Total Cholesterol 209 H (<200) mg/dL LDL Cholesterol, Calc 116 H (<100) mg/dL Urine Protein (Negative) mg/dL Urine Ketones (Negative) mg/dL Urine Blood (Negative) Vital Signs Temperature 36.1 C L 09/15/19 04:39 Temperature Source Temporal Artery Scan 09/15/19 04:39 Pulse 67 09/15/19 07:01 Pulse 71 09/15/19 07:10 Respiratory Rate 15 09/15/19 07:10 Respiratory Effort 09/15/19 07:20 Respiratory Depth Normal 09/15/19 07:20 Respiratory Pattern Normal 09/15/19 07:20 Blood Pressure 128/56 L 09/15/19 07:01 Blood Pressure Mean 73 09/15/19 07:01 Blood Pressure Position Supine 09/14/19 20:19 Pulse Oximetry 97 09/15/19 07:20 Oxygen Delivery Method Room Air 09/15/19 07:20 Oxygen Flow Rate 0 09/15/19 07:20 Pain Level 0 09/15/19 07:20 Intake & Output 09/14/19 09/14/19 09/15/19 11:59 23:59 11:59 Intake Total 600 / 600 1000 / 1000 Output Total 270 / 270 Balance 600 / 330 -270 / 330 1000 / 1000 Weight 60 kg 56.1 kg Intake: IV 600 / 600 1000 / 1000 Output: Urine 270 / 270 Other: Urine Color Straw Urine Appearance Clear Urine Odor Normal Comment reports some incontinence at times. SIADH with low urine output, no void for past 8 hours. No urge to void at present, per pt report. Voiding Methods Bedside Commode Laboratory Results WBC 10.56 k/cumm (4.4-10.8) D 09/15/19 06:10 RBC 4.47 m/cumm (4.00-5.20) 09/15/19 06:10 Hgb 13.0 g/dL (12.0-15.5) 09/15/19 06:10 Hct 38.6 % (36.0-46.0) 09/15/19 06:10 MCV 86.4 fL (80-95) 09/15/19 06:10 MCH 29.1 pg (27.0-33.0) 09/15/19 06:10 MCHC 33.7 g/dL (32.0-36.0) 09/15/19 06:10 RDW 14.5 % (11.7-14.6) 09/15/19 06:10 Plt Count 296 x1000/uL (130-400) 09/15/19 06:10 MPV 10.8 fL (8.0-11.0) 09/15/19 06:10 Immature Gran % 0.4 % 09/15/19 06:10 Neutrophils % 89.7 09/15/19 06:10 Lymphocytes % 4.9 09/15/19 06:10 Monocytes % 4.9 09/15/19 06:10 Eosinophils % 0.1 09/15/19 06:10 Basophils % 0.0 09/15/19 06:10 Absolute Neutrophils 9.47 k/cumm (1.2-6.7) H 09/15/19 06:10 Absolute Lymphocytes 0.52 k/cumm (1.2-3.4) L 09/15/19 06:10 Absolute Monocytes 0.52 k/cumm (0.11-0.7) 09/15/19 06:10 Absolute Eosinophils 0.01 k/cumm (0.0-0.7) 09/15/19 06:10 Absolute Basophils 0.00 k/cumm (0.0-0.2) 09/15/19 06:10 Differential Comment Agrees w/ instrument 09/14/19 09:40 RBC Morphology Normal 09/14/19 09:40 ESR 19 mm/hr (0-30) 09/15/19 06:10 PT 11.0 sec (9.3-11.0) 09/14/19 09:40 INR 1.1 (0.9-1.1) 09/14/19 09:40 APTT 24.4 sec (21.0-31.4) 09/14/19 09:40 Sodium 129 mmol/L (136-145) L 09/15/19 06:10 Potassium 4.3 mmol/L (3.5-5.1) D 09/15/19 06:10 Chloride 96 mmol/L (98-107) L 09/15/19 06:10 Carbon Dioxide 21.7 mmol/L (21.0-32.0) 09/15/19 06:10 Anion Gap 11.3 mmol/L (3-11) H 09/15/19 06:10 BUN 18 mg/dL (7-18) 09/15/19 06:10 Creatinine 1.00 mg/dL (0.55-1.02) 09/15/19 06:10 Estimated GFR/1.73 m2 52.95 (mL/min/1.73m2) 09/15/19 06:10 Glucose 108 mg/dL (74-106) H 09/15/19 06:10 Hemoglobin A1c 5.5 % (3.8-5.6) 09/15/19 06:10 Lactate 1.6 mmol/L (0.6-1.4) H 09/14/19 14:10 Calcium 8.5 mg/dL (8.5-10.1) 09/15/19 06:10 Magnesium 2.0 mg/dL (1.8-2.4) 09/15/19 06:10 Total Bilirubin 0.7 mg/dL (0.2-1.0) 09/15/19 06:10 Conjugated Bilirubin 0.14 mg/dL (0.00-0.20) 09/15/19 06:10 AST 192 U/L (15-37) H 09/15/19 06:10 ALT 316 U/L (14-59) H 09/15/19 06:10 Alkaline Phosphatase 73 U/L (46-116) 09/15/19 06:10 Creatine Kinase 115 U/L (26-192) 09/14/19 09:40 Troponin I 0.50 ng/mL (<0.06) H* 09/15/19 06:10 C-Reactive Protein 2.11 mg/dL (0.0-0.3) H 09/15/19 06:10 Total Protein 6.5 g/dL (6.4-8.2) 09/15/19 06:10 Albumin 3.1 g/dL (3.4-5.0) L 09/15/19 06:10 Triglycerides 50 mg/dL (<150) 09/15/19 06:10 Total Cholesterol 209 mg/dL (<200) H 09/15/19 06:10 LDL Cholesterol, Calc 116 mg/dL (<100) H 09/15/19 06:10 HDL Cholesterol 83 mg/dL (40-60) 09/15/19 06:10 Lipase 80 U/L (73-393) 09/14/19 09:40 Procalcitonin 108.4 ng/mL 09/14/19 14:10 TSH 0.43 uIU/mL (0.36-3.74) 09/15/19 06:10 Urine Color Yellow (Yellow) 09/14/19 12:45 Urine Clarity Clear (Clear) 09/14/19 12:45 Urine pH 7.0 (5-8) 09/14/19 12:45 Ur Specific [place] 1.020 (1.005-1.025) 09/14/19 12:45 Urine Protein 30 mg/dL (Negative) H 09/14/19 12:45 Urine Ketones 40 mg/dL (Negative) H 09/14/19 12:45 Urine Blood Trace-intact (Negative) H 09/14/19 12:45 Urine Nitrite Negative (Negative) 09/14/19 12:45 Urine Bilirubin Negative (Negative) 09/14/19 12:45 Urine Urobilinogen 0.2 EU/dL (Up TO 0.2) 09/14/19 12:45 Ur Leukocyte Esterase Negative (Negative) 09/14/19 12:45 Urine RBC 0-2 HPF (0-2) 09/14/19 12:45 Urine WBC 0-2 HPF (0-5) 09/14/19 12:45 Ur Epithelial Cells Few HPF (Negative) 09/14/19 12:45 Urine Crystals Negative HPF (Negative) 09/14/19 12:45 Urine Bacteria Moderate HPF (Negative) 09/14/19 12:45 Urine Casts 3-5 hyaline LPF (Negative) 09/14/19 12:45 Urine Mucus Trace (Negative) 09/14/19 12:45 Urine Other Few renal (Negative) 09/14/19 12:45 Ur Culture Indicated? Yes 09/14/19 12:45 Urine Glucose Negative mg/dL (Negative) 09/14/19 12:45
[2019-09-15 08:40] LABS: COVID-19 RT-PCR UVMMC Result Negative (Negative)
[2019-09-15] MEDS: Cholecalciferol (Vitamin D3) 1,000 UNIT TAB 1000 UNITS PO (09:00)
[2019-09-15] MEDS: Sucralfate 1 GM TAB PO ×4 (09:01→20:35)
[2019-09-15] MEDS: Vitamins B Comp w/C TAB 1 TAB PO (09:01)
[2019-09-15] MEDS: Metoprolol 25 MG TAB PO ×3 (09:01→23:32)
[2019-09-15] MEDS: cefTRIAXone 2 GM/50 ML BAG IVPB (09:05)
--- NOTE | 2019-09-15 09:07 | PT.INIE ---
Date of service: 09/15/19 Time of Service: 09:07 PT Notes Visit Reasons: N/V, NSTEMI, SYNCOPE, SIRS, CLOSED HEAD INJURY Physical Therapy Inpatient Initial Evaluation Date: 09/15/2019 Referring Doctor: Yesenia Basilio MD PT Orders: PT CONSULT: Limited ability Precautions: Fall. Standard. Activity as tolerated. Patient Profile/Admitting Diagnosis: Colleen is an 83-year-old female with past medical history significant for polymyalgia rheumatica and S/P ORIF for a R femoral neck fracture 0n 05/04/2019 who presented to the ED on 09/14/2019 with chief complaints of headache and vomiting for the past few days. She also had a fall with head injury yesterday morning prior to ED arrival. Patient is diagnosed with elevated troponin, syncope, closed head injury, post concussion syndrome, forehead laceration, adrenal insufficiency, encephalopathy, hyponatremia, and ambulatory dysfunction with referral to skilled therapy services to address ongoing mobility impairments. PMHX: Medical History Atrial flutter (Chronic) paroxysmal, Atrial fib/flutter, rate controlled, not on anticoagulation. Zio Patch ordered. Celiac disease (Chronic 06/12/13) Cortical cataract of left eye (Resolved) DVT (deep venous thrombosis) (Chronic) s/p hemorrhoid banding Epiretinal membrane (ERM) of left eye (Chronic) GERD (gastroesophageal reflux disease) History of pelvic fracture (Chronic) Nuclear sclerotic cataract of left eye (Resolved) Osteoarthritis Osteoporosis (Chronic) Paroxysmal atrial fibrillation Polymyalgia rheumatica Polymyalgia rheumatica (Resolved 08/14/14) Spinal stenosis (Acute) Surgical History Cholecystectomy (~01/2007) Colonoscopy - MAC Hemorrhoidal Banding (04/27/17) Status post cataract extraction and insertion of intraocular lens of left eye (Chronic 05/02/18) Status post cataract extraction and insertion of intraocular lens of right eye (Chronic 05/16/18) Social History/Home Situation: Patient lives alone in a private home with 1 step that leads to a porch and then another step to the entrance door. She is independent with all aspects of ADLs using a cane for all outdoor ambulation and a front wheeled walker for indoors. She she voices that she has not driven for several months now. She says that she has family members who live close by who can help as needed. Equipment Owned/DME: Front-wheeled walker, single-point cane Subjective: Patient reports feeling a lot better today than she did yesterday. She reports soreness on the right sole of her foot during weight bearing. She also reported being nauseated since before PT but no vomiting. She denies headache, and chest pain throughout session. Objective: General Observation: Patient seen resting in bed. IV access seen in R UE. Bilateral TEDS on. Bilateral anti-thromboembolic pumps on. Wound dressing to right frontal area over lacerated area. Mental Status: Alert and oriented x4 Pain: Reports soreness on R foot with WB ROM: Right Upper Extremity: Shoulder Flexion WFL. Shoulder abduction WFL. Elbow flexion WFL. Wrist flexion WFL. Opening and closing of hand WFL. Left Upper Extremity: Shoulder Flexion WFL. Shoulder abduction WFL. Elbow flexion WFL. Wrist flexion WFL. Opening and closing of hand WFL. Right Lower Extremity: Hip flexion allows about 10 degrees beyond 90 while seated on the edge of the bed. Hip abduction WFL. Knee flexion WFL. Ankle dorsiflexion WFL. Ankle plantarflexion WFL. Left Lower Extremity: Hip flexion WFL. Hip abduction WFL. Knee flexion WFL. Ankle dorsiflexion WFL. Ankle plantarflexion WFL. Strength: Right Upper Extremity: Shoulder flexors 4/5. Shoulder abductors 4/5. Elbow flexors 45. Elbow extensors 4/5. Bee Producer strong. Left Upper Extremity: Shoulder flexors 4/5. Shoulder abductors 4/5. Elbow flexors 45. Elbow extensors 4/5. Bee Producer strong. Right Lower Extremity: Hip flexors 3+/5. Hip abductors 3+/5. Knee flexors 3+/5. Knee extensors 3+/5. Ankle dorsiflexors 3+/5. Ankle plantarflexors 4-/5. Left Lower Extremity: Hip flexors 3+/5. Hip abductors 3+/5. Knee flexors 3+/5. Knee extensors 3+/5. Ankle dorsiflexors 3+/5. Ankle plantarflexors 4-/5. Sensation: Intact as to pain and pressure on left lower extremity Bed Mobility/Transfers: Supine to sit minimal assist Sit to supine CGA Sit to stand CGA Stand to sit CGA Bed to chair CGA Chair to bed CGA Gait: Patient tolerated short distance ambulation of about 300 feet using the front wheeled walker with CGA and wheelchair follow of ICU nurse Mary. Reciprocal step tthrough gait pattern. Decreased step height and length on the right side. Minimal verbal cues provided for safe gait pattern and walker management. L pelvi dipping seen due to weak R gluteus medius or may be a result of her sore R sole of foot. Asymmetric step length and height. Decreased rosemary. Balance: Static Sitting: Normal Dynamic Sitting: Normal Static Standing: Fair Dynamic Standing: Fair Special Tests: Mobility Limitations Standardized Measure [facility] AM-PAC 6 clicks Basic Mobility Inpatient Short Form: Raw Score: 18 CMS Score: 47% deficit Informed Consent/Education: Patient instructed in purpose of PT consult and plan of care. Assessment: Colleen demonstrates functional mobility decline requiring the use of front wheeled walker for all mobility ADL performance, difficulty in walking, generalized weakness, and impairment in balance awareness resulting from admitting diagnoses. Colleen is an 83-year-old female with past medical history significant for polymyalgia rheumatica and S/P ORIF for a R femoral neck fracture 0n 05/04/2019 who presented to the ED on 09/14/2019 with chief complaints of headache and vomiting for the past few days. She also had a fall with head injury yesterday morning prior to ED arrival. Patient is diagnosed with elevated troponin, syncope, closed head injury, post concussion syndrome, forehead laceration, adrenal insufficiency, encephalopathy, hyponatremia, and ambulatory dysfunction with referral to skilled therapy services to address ongoing mobility impairments. Patient presents with clinical signs and symptoms consistent with current/admitting diagnoses that have resulted to mobility limitations, gait instability, generalized weakness, and impairment of motor control as demonstrated by the following impairment level findings: 1. Decreased strength to B LE major muscle groups 2. Impaired standing balance 3. Impaired activity tolerance Impairments are contributing to the following functional limitations: 1. Dependent bed mobility skills 2. Increased dependence with transfers 3. Inability to safely ambulate without assistive device and physical assistance 4. Increase completion time for mobility ADL performance 5. Increased fall risk 6. Inability to negotiate steps alone safely Patient is assessed as a 14245 moderate complexity based on the following: History: 83-year-old female with impairment level findings, functional limitations, and [place] AM PAC deficit score of 47% Examination: Demonstrable impairment in strength, balance, and range of motion with underlying impairments and functional limitations as documented above Presentation: Evolving Decision Makin moderate complexity Goals: Goals X1 week 1. Supine-Sit independent 2. Sit-Supine independent 3. Sit-Stand independent 4. Stand-Sit independent 5. Bed-Chair independent 6. Chair-Bed independent 7. Independent gait on level surface with use of least restrictive device for at least 300 feet without report of pain nor dyspnea 8. Independent stair negotiation while holding onto bilateral rails for at least 5 steps without report of pain nor dyspnea 9. Independent with home exercise program 10. Good static and dynamic standing balance/tolerance Plan of Care/Treatment Plan: 1-2x/day, 7 days/week x 1 week. Plan of care has been reviewed with the HIGHBALLER providing the service under Physical Therapy direction. Initiate Physical Therapy intervention for strengthening, bed mobility, transfers, gait, stairs, balance training, use of assistive device. DISCHARGE RECOMMENDATIONS: Patient will benefit from home health PT services in order to progress mobility level using least restrictive assistive ambulatory device, assess home safety, identify additional equipment needs, and establish a functional maintenance program that will increase ability of patient to remain at home. TREATMENT CODE/TIME: 17843 x 25 minutes, 29314 x 18 minutes beginning at 9:07 AM. Thank you for the opportunity to participate in the care of this patient. Denise Ramirez PT, DPT, CLT [facility] [place], [place]
[2019-09-15] MEDS: Aspirin E.C. 81 MG TABEC PO (09:20)
[2019-09-15] MEDS: predniSONE 5 MG TAB 7.5 MG PO (10:10)
--- NOTE | 2019-09-15 10:45 | PDOC.CMIN ---
- If Service Date Differs Date of service: 09/15/19 Time of Service: 15:58 Care Management Initial Assess REASON FOR HOSPITALIZATION:: N/V, NSTEMI, Syncope, SIRS, Closed head injury PAST MEDICAL HISTORY/PAST SURGICAL HISTORY:: A-fib, celiac disease, cortical cataract of left eye, DVT, ERM of left eye, GERD, pelvic fracture, nuclear sclerotic cataract of left eye, osteoarthritis, osteoporosis, paroxysmal A-fib, polymyalgia rheumatica, spinal stenosis, cholecystectomy, closed right hip fracture, colonoscopy-MAC, hemorrhoidal banding, bilateral cataract extraction and insertion of of intraocular lens of both eyes. PREVIOUS FUNCTIONAL STATUS/SOCIAL/FAMILY SUPPORTS:: Colleen resides alone in [place], [place]. She is and has three adult children, Eusebio her son who resides in [place] comes often and helps stock her home with food, provides transportation when needed and house cleaning. Her additional children include her son Raj who resides in [place] and her daugher, Mylene in [place]. She has two sisters who reside locally, Edith resides in [place], and Ethel in [place]. Colleen reports her large house is always teeming with 8-10 grandchildren and great children at a time, who come and stay with her, ride four wheelers and snowmachines, foster and enjoy her land. She enjoys gardening, quilting, sewing and reports she is able to drive, but has allowed Eusebio to take over the errands and transportation the last few months. CURRENT FUNCTIONAL STATUS:: Colleen is lying in bed, open to discussion and forthcoming with information. She attributes her fall to the power being out and being unable to see in the dark. She reports having some baseline memory issues, but being independent at home. ADVANCE DIRECTIVES:: Eusebio as agent, document not on file at [facility]. Has patient been provided with info about the portal/API?: No Did the patient sign up for the portal?: No CODE STATUS:: DNR/DNI INSURANCE COVERAGE / FINANCIAL ISSUES:: Medicare. Combined Ins CURRENT HOME/COMMUNITY SERVICES/EQUIPMENT:: [employer] PRIMARY CARE PHYSICIAN:: Andrez Anthony POTENTIAL DISCHARGE NEEDS:: Resumption of V[facility]: [place] PATIENT/FAMILY EDUCATION NEEDS:: Review discharge instructions, discuss Ask Me Three. ANTICIPATED BARRIERS TO DISCHARGE:: None identified. TRANSPORTATION:: Via private vehicle with her son, Eusebio. PLAN:: Colleen will return home when ready per MD. She will [id number] orders for VNA RN/PT/OT/SOLAR MAINTENANCE TECHNICIAN through [employer]. She will transport home via private vehicle with her son, Eusebio.
--- NOTE | 2019-09-15 11:58 | CCONE_ITS ---
Date of service: 09/15/19 Time of Service: 11:59 Assessment and Plan Assessment and plan (1) Paroxysmal atrial fibrillation with rapid ventricular response: Status: Resolved (2) Elevated troponin: Status: Acute Assessment and plan: Patient is currently in sinus rhythm. She has a history of paroxysmal atrial fibrillation dating back at least to 2011. She is not a candidate for anticoagulation given her fall risk, as well as history of prior GI bleeding Abnormal troponins likely on the basis of demand ischemia due to rapid atrial fibrillation. I would not recommend additional cardiac testing in this regard as it is not likely to currency exchange specialist. Consideration could be given to increasing her beta-cammie as allowed by heart rate and blood pressure, but this may not be tolerated The patient is ambulatory with the cold therapy and not experiencing any significant cardiac symptoms Thank you for the opportunity to participate in the care of this patient History of Present Illness History of Present Illness Chief Complaint: Falls, paroxysmal atrial fibrillation Narrative: This is an 83-year-old woman who presented to the hospital yesterday after she fell at home. The patient is a fair historian. She reports that she lives alone and that she got up during the night to go to the bathroom. None of her night lights were working and she could not see and then she fell. She denied experiencing syncope. An ambulance was called and she was brought to the hospital. She was in atrial fibrillation with a moderately rapid rate at the time of arrival but subsequently converted to sinus rhythm. Her electrocardiogram showed no acute changes. She was not experiencing chest discomfort. Her troponin was abnormal, prompting an ICU admission and this consultation Patient has a longstanding history of paroxysmal atrial fibrillation. At one point she was anticoagulated but subsequently had GI bleeding and that was discontinued. She also has recently multiple presentations for falling and is at high risk of recurrence She had a fractured hip in the spring of this year Review of past medical records includes an echocardiogram from 2013, normal left ventricular systolic function and no valvular disease She also reportedly had cardiac catheterization in [address] [facility], demonstrating mild nonobstructive coronary disease The patient herself denies any significant cardiac history but it is suspected that she is moderately unreliable Consults Consult date: 09/15/19 Requesting physician: Yesenia Basilio Review of Systems Cardiovascular Cardiovascular: Reports as per HPI, Denies chest pain, Denies chest pain at rest, Denies syncope, Denies leg edema, Denies dyspnea and Denies dyspnea on exertion Respiratory Respiratory: Denies dyspnea and Denies dyspnea on exertion Neurologic Neurologic: Denies syncope [facility] Surgical History Cholecystectomy (~01/2007) Closed right hip fracture (Acute 05/03/19) S/P ORIF with cannulated screw fixation on 05/04/2019 Colonoscopy - MAC Hemorrhoidal Banding (04/27/17) Status post cataract extraction and insertion of intraocular lens of left eye (Chronic 05/02/18) Status post cataract extraction and insertion of intraocular lens of right eye (Chronic 05/16/18) Social History Smoking/Tobacco Use Status: Never Alcohol Intake: never Drug use: Never Substance use type: does not use current occupation: Cleaning [employer] Pets and animals: No What type of physical activity do you participate in: none Jennifer/Baptist: Spiritism Special jennifer needs: No Do you feel safe at home: Yes Do you feel safe in your relationship?: Yes Exam Narrative Exam Narrative: Pleasant elderly woman, no acute distress Eyes Pupils: PERRL EOM: EOM intact bilaterally Neck Neck: trachea midline Carotids: normal carotid upstroke and no bruits Resp Auscultation: clear to auscultation bilaterally Cardio Jugular venous pressure: no JVD Rate: regular rate Rhythm: regular rhythm Heart Sounds: S1 normal and S2 normal Other: No murmur rub or gallop Neuro Other: Decreased hearing Extrem Other: No peripheral edema Results Last Vital Signs Temp 36.1 C L 09/15/19 04:39 Pulse 67 09/15/19 07:01 Resp 15 09/15/19 07:10 BP 128/56 L 09/15/19 07:01 Pulse Ox 97 09/15/19 07:20 Labs Result diagrams: 09/15/19 06:10 09/15/19 06:10 Labs: Laboratory Results - last 24 hr 09/14/19 09/14/19 09/14/19 09:40 12:35 12:45 WBC RBC Hgb Hct MCV MCH MCHC RDW Plt Count MPV Immature Gran % Neutrophils % Lymphocytes % Monocytes % Eosinophils % Basophils % Absolute Neutrophils Absolute Lymphocytes Absolute Monocytes Absolute Eosinophils Absolute Basophils ESR Sodium 128 L Potassium 3.3 L Chloride 89 L Carbon Dioxide 26.1 Anion Gap 12.9 H BUN 19 H Creatinine 1.49 H Estimated GFR/1.73 m2 33.42 Glucose 110 H Hemoglobin A1c Lactate Calcium 9.2 Magnesium 1.8 Total Bilirubin 1.0 Conjugated Bilirubin AST 77 H ALT 127 H Alkaline Phosphatase 80 Creatine Kinase 115 Troponin I 0.05 C-Reactive Protein Total Protein 6.9 Albumin 3.6 Triglycerides Total Cholesterol LDL Cholesterol, Calc HDL Cholesterol Lipase 80 Procalcitonin TSH Urine Color Yellow Urine Clarity Clear Urine pH 7.0 Ur Specific Uneeda 1.020 Urine Protein 30 H Urine Ketones 40 H Urine Blood Trace-intact H Urine Nitrite Negative Urine Bilirubin Negative Urine Urobilinogen 0.2 Ur Leukocyte Esterase Negative Urine RBC 0-2 Urine WBC 0-2 Ur Epithelial Cells Few Urine Crystals Negative Urine Bacteria Moderate Urine Casts 3-5 hyaline Urine Mucus Trace Urine Other Few renal Ur Culture Indicated? Yes Urine Glucose Negative COVID-19 PCR Negative Nasopharyn COVID-19 PCR Not Applicable Ref Test [facility] 09/14/19 09/14/19 14:10 14:10 22:02 WBC RBC Hgb Hct MCV MCH MCHC RDW Plt Count MPV Immature Gran % Neutrophils % Lymphocytes % Monocytes % Eosinophils % Basophils % Absolute Neutrophils Absolute Lymphocytes Absolute Monocytes Absolute Eosinophils Absolute Basophils ESR Sodium Potassium Chloride Carbon Dioxide Anion Gap BUN Creatinine Estimated GFR/1.73 m2 Glucose Hemoglobin A1c Lactate 1.6 H Calcium Magnesium Total Bilirubin Conjugated Bilirubin AST ALT Alkaline Phosphatase Creatine Kinase Troponin I 1.00 H* 1.27 H* C-Reactive Protein Total Protein Albumin Triglycerides Total Cholesterol LDL Cholesterol, Calc HDL Cholesterol Lipase Procalcitonin 108.4 TSH Urine Color Urine Clarity Urine pH Ur Specific Uneeda Urine Protein Urine Ketones Urine Blood Urine Nitrite Urine Bilirubin Urine Urobilinogen Ur Leukocyte Esterase Urine RBC Urine WBC Ur Epithelial Cells Urine Crystals Urine Bacteria Urine Casts Urine Mucus Urine Other Ur Culture Indicated? Urine Glucose COVID-19 PCR Nasopharyn COVID-19 PCR Ref Test Perform Site 09/15/19 09/15/19 09/15/19 06:10 06:10 06:10 WBC RBC Hgb Hct MCV MCH MCHC RDW Plt Count MPV Immature Gran % Neutrophils % Lymphocytes % Monocytes % Eosinophils % Basophils % Absolute Neutrophils Absolute Lymphocytes Absolute Monocytes Absolute Eosinophils Absolute Basophils ESR Sodium 129 L Potassium 4.3 D Chloride 96 L Carbon Dioxide 21.7 Anion Gap 11.3 H BUN 18 Creatinine 1.00 Estimated GFR/1.73 m2 52.95 Glucose 108 H Hemoglobin A1c 5.5 Lactate Calcium 8.5 Magnesium 2.0 Total Bilirubin 0.7 Conjugated Bilirubin 0.14 AST 192 H ALT 316 H Alkaline Phosphatase 73 Creatine Kinase Troponin I 0.50 H* C-Reactive Protein 2.11 H Total Protein 6.5 Albumin 3.1 L Triglycerides 50 Total Cholesterol 209 H LDL Cholesterol, Calc 116 H HDL Cholesterol 83 Lipase Procalcitonin TSH 0.43 Urine Color Urine Clarity Urine pH Ur Specific Uneeda Urine Protein Urine Ketones Urine Blood Urine Nitrite Urine Bilirubin Urine Urobilinogen Ur Leukocyte Esterase Urine RBC Urine WBC Ur Epithelial Cells Urine Crystals Urine Bacteria Urine Casts Urine Mucus Urine Other Ur Culture Indicated? Urine Glucose COVID-19 PCR Nasopharyn COVID-19 PCR Ref Test Perform Site 09/15/19 06:10 WBC 10.56 D RBC 4.47 Hgb 13.0 Hct 38.6 MCV 86.4 MCH 29.1 MCHC 33.7 RDW 14.5 Plt Count 296 MPV 10.8 Immature Gran % 0.4 Neutrophils % 89.7 Lymphocytes % 4.9 Monocytes % 4.9 Eosinophils % 0.1 Basophils % 0.0 Absolute Neutrophils 9.47 H Absolute Lymphocytes 0.52 L Absolute Monocytes 0.52 Absolute Eosinophils 0.01 Absolute Basophils 0.00 ESR 19 Sodium Potassium Chloride Carbon Dioxide Anion Gap BUN Creatinine Estimated GFR/1.73 m2 Glucose Hemoglobin A1c Lactate Calcium Magnesium Total Bilirubin Conjugated Bilirubin AST ALT Alkaline Phosphatase Creatine Kinase Troponin I C-Reactive Protein Total Protein Albumin Triglycerides Total Cholesterol LDL Cholesterol, Calc HDL Cholesterol Lipase Procalcitonin TSH Urine Color Urine Clarity Urine pH Ur Specific Uneeda Urine Protein Urine Ketones Urine Blood Urine Nitrite Urine Bilirubin Urine Urobilinogen Ur Leukocyte Esterase Urine RBC Urine WBC Ur Epithelial Cells Urine Crystals Urine Bacteria Urine Casts Urine Mucus Urine Other Ur Culture Indicated? Urine Glucose COVID-19 PCR Nasopharyn COVID-19 PCR Ref Test Perform Site EKG interpretations EKG EKG results cardiology: sinus rhythm, normal ST/T and no acute changes Dysrhythmias Supraventricular dysrhythmia: atrial fibrillation
[2019-09-15] MEDS: Pantoprazole 40 MG VIAL IVP ×2 (12:11→20:35)
--- NOTE | 2019-09-15 15:29 | PT.INTREAT ---
Date of service: 09/15/19 Time of Service: 15:29 PT Notes Visit Reasons: N/V, NSTEMI, SYNCOPE, SIRS, CLOSED HEAD INJURY Inpatient Physical Therapy Treatment Note [facility] Date: 09/15/2019 SUBJECTIVE: Radha states that she is ready to go for a walk. Anything to go back home. I don't need to exercise. Everything works fine. OBJECTIVE: [] BED MOBILITY/TRANSFERS Supine-sit: SBA Sit-supine: SBA Sit-stand: SBA Stand-sit: SBA GAIT Assistive Device: FWW Weight bearing: FWB Assist: CGA Distance: 300' THEREX: global LE strength and stabilization. ASSESSMENT: is moving well and safe functionally. No LOB noted. PLAN: continue to progress following PT POC. TREATMENT CODE/TIME: 20 min. [id number].
--- NOTE | 2019-09-15 16:15 | PHA.REVIEW ---
Pharmacy Admission Review - Admission Clinical Review (Last Reviewed 08/22/19 @ 09:57 by DIMPLE An) SIRS (systemic inflammatory response syndrome) (Acute) Hyponatremia (Acute) DVT prophylaxis (Acute) Discharge planning issues (Acute) Adrenal insufficiency (Acute) Forehead laceration (Acute) Closed head injury (Acute) Generalized weakness (Acute) Elevated troponin (Acute) Post concussive syndrome (Acute) Ambulatory dysfunction (Acute) carbamazepine Adverse Reaction (Severe, Verified 09/14/19 10:46) Confusion and disorientation morphine Adverse Reaction (Intermediate, Verified 09/14/19 10:46) made my chest feel likie I was in a vice Height 5 ft 3 in Weight 56.1 kg - Renal Dosing Renal Dosing: BUN 18 mg/dL (7-18) 09/15/19 06:10 Creatinine 1.00 mg/dL (0.55-1.02) 09/15/19 06:10 Medications needing adjustments: Reviewed (Crcl ~35.2 mL/min. Current med orders okay. Butalbital/acetaminophen/caffein- use caution with renal impairment.) - Anticoagulation Anticoagulation: Hgb 13.0 g/dL (12.0-15.5) 09/15/19 06:10 Hct 38.6 % (36.0-46.0) 09/15/19 06:10 Plt Count 296 x1000/uL (130-400) 09/15/19 06:10 INR 1.1 (0.9-1.1) 09/14/19 09:40 Creatinine 1.00 mg/dL (0.55-1.02) 09/15/19 06:10 DVT Prohphylaxis: Reviewed (Avoiding chemical prophylaxis for now per progress note due to closed head injury.) Therapeutic Anticoagulation: N/A - Opiate Usage Evaluate Pain Scale/Pains Meds: N/A - Relevant Labs ESR 19 mm/hr (0-30) 09/15/19 06:10 Sodium 129 mmol/L (136-145) L 09/15/19 06:10 Potassium 4.3 mmol/L (3.5-5.1) D 09/15/19 06:10 Chloride 96 mmol/L (98-107) L 09/15/19 06:10 Magnesium 2.0 mg/dL (1.8-2.4) 09/15/19 06:10 C-Reactive Protein 2.11 mg/dL (0.0-0.3) H 09/15/19 06:10 Electrolytes, C-Reactive P, ESR: Reviewed (watch Na and Cl) - DM Control DM Control: Glucose 108 mg/dL (74-106) H 09/15/19 06:10 Hemoglobin A1c 5.5 % (3.8-5.6) 09/15/19 06:10 Insulin Dosing: N/A - Heart Failure/HI Heart Failure/HI: Troponin I 0.50 ng/mL (<0.06) H* 09/15/19 06:10 EF%, JOSE J's, B-Blockers, Diuretics: Reviewed - BP Control BP Control: Blood Pressure 118/50 Blood Pressure 118/50 Blood Pressure 118/50 Blood Pressure 144/48 Blood Pressure 128/56 If elevated: N/A - Qtc Review If Elevated: N/A - IV to PO Switch IV Medications: N/A - Home Meds Home Med List reviewed: Reviewed Relevent Home Meds Not ordered & why?: All home meds are ordered - Current meds Current Medication Order Review: Reviewed - Comments Comments/Follow Ups: Watch BP, HR, Na, Cl, micro, and for med changes. Antibiotic Activity - Pharmacy Antibiotic Review Pharmacy Antibiotic Activity: C/S review (vanco and ceftriaxone ordered (day 1), blood and urine cultures no growth @24 hours)
--- NOTE | 2019-09-15 16:54 | WOUNDCONS ---
- If Service Date Differs Date of service: 09/15/19 Time of Service: 15:00 Wound Initial Evaluation Narrative: Patient is a 83 yof who is in the ICU, who suffered a syncopal episode at home, where she struck her head in the bathroom . Patient is currently also being treated for urinary retention and a [place]. All information pertinent to the wound ,including H&P and labs were reviewed. - Wound Right Forehead Wound Type: Laceration Wound General Appearance: Sutures Intact, Open to air, Clean/Dry Wound Bed Greatest Portion: Red (Granulation) Percent of Wound Bed Granulated/Red: 100 Wound Length: 0.3 cm Wound Width: 2.9 cm Wound Depth: 0.1 cm (sutured shut) Wound Drainage Amount: None Wound Drainage Odor: None/Absent Wound Topical Solution/Irrigant: Saline Irrigant Wound Debridement Method: Mechanical Wound Debridement Result: Healthy Tissue Revealed Wound Debridement Amount of Tissue Removed: None (na) - Circulation, Sensation, Motion Peripheral Pulse Strength: Normal Capillary Refill: Less than 3 seconds Sensation Description: Within Normal Limits Skin Temperature: Warm Skin Color: Pale - DONNA Comment:: na - Pain Pain Level: 0 Patient had a syncopal episode in her bathroom, resulting in a fall where she struck her right forehead , resulting in a laceration that was sutured shut in the ED. Patient does not seem to be in a considerable amount of discomfort from this and there are no s/s of infection noted. - Treatment/Dressing Change Topicals/Ointments: Bactracin Cleanse With: Saline Dressing Types: Other (out to air) - Recomendation Recomendation:: Cleanse with Normal Saline and pat dry. Apply Bacitracin to the base of the wound. Leave out to air. Change daily. Physcian/Nurse Practioner Notified: Yes () Treatment Time - Time Total Time Spent with Patient: 30 minutes - Patient Will be Seen Weekly Treatment: daily - For: For:: 1 week
[2019-09-15] MEDS: VANCOMYCIN 750 MG in Normal Saline 250 ML 167 MG IV (23:33)
[2019-09-15] MEDS: Acetaminophen 325 MG TAB PO (23:33)
[2019-09-16] VITALS (15 sets, daily range): BP systolic 152–194; BP diastolic 56–98; PULSE 63–98; RESP 11–24; TEMP 36.3–36.5; O2SAT 95–98
[2019-09-16] MEDS: Normal Saline 1,000 ML 75 ML IV (00:08)
[2019-09-16] MEDS: Hydrocortisone SOD SUC. 100 MG VIAL 50 MG IVP (05:46)
[2019-09-16] MEDS: Sucralfate 1 GM TAB PO ×2 (05:46→12:37)
[2019-09-16 07:11] LABS: Abs Immature Grans 0.04 k/cumm (0.0-0.09); Absolute Neutrophil Count 13.95 k/cumm (1.2-6.7); HCT 37.8 % (36.0-46.0); HGB 12.8 g/dL (12.0-15.5); Immature Grans % 0.3 %; Lymphocytes % 4.2; Mean Corp. HGB Concentration 33.9 g/dL (32.0-36.0); Mean Corpuscular Hemoglobin 29.2 pg (27.0-33.0); Mean Corpuscular Volume 86.3 fL (80-95); Mean Platelet Volume 10.6 fL (8.0-11.0); Monocytes % 5.8; Neutrophils % 89.7; Platelet Count 301 x1000/uL (130-400); RBC 4.38 m/cumm (4.00-5.20); RBC Distribution Width 14.4 % (11.7-14.6); White Blood Cell Count 15.55 k/cumm (4.4-10.8)
[2019-09-16 07:12] LABS: Absolute Lymphocyte Count 0.65 k/cumm (1.2-3.4)
[2019-09-16 07:26] LABS: Anion Gap 10.3 mmol/L (3-11); BUN 10 mg/dL (7-18); CO2 23.7 mmol/L (21.0-32.0); CREATININE 0.93 mg/dL (0.55-1.02); Calcium 8.6 mg/dL (8.5-10.1); Chloride 99 mmol/L (98-107); Estimated GFR 57.58 (mL/min/1.73m2); Glucose 131 mg/dL (74-106); Potassium 3.7 mmol/L (3.5-5.1); Sodium 133 mmol/L (136-145)
[2019-09-16] MEDS: Pantoprazole 40 MG VIAL IVP (08:40)
[2019-09-16] MEDS: Aspirin E.C. 81 MG TABEC PO (08:41)
[2019-09-16] MEDS: Metoprolol 25 MG TAB PO (08:41)
[2019-09-16] MEDS: predniSONE 5 MG TAB 7.5 MG PO (08:42)
[2019-09-16] MEDS: Cholecalciferol (Vitamin D3) 1,000 UNIT TAB 1000 UNITS PO (08:42)
[2019-09-16] MEDS: Vitamins B Comp w/C TAB 1 TAB PO (08:42)
[2019-09-16] MEDS: cefTRIAXone 2 GM/50 ML BAG IVPB (08:43)
[2019-09-16] MEDS: Bacitracin 1 PACKET TP ×2 (10:30→19:31)
--- NOTE | 2019-09-16 12:06 | PT.INTREAT ---
Date of service: 09/16/19 Time of Service: 10:15 PT Notes Visit Reasons: N/V, NSTEMI, SYNCOPE, SIRS, CLOSED HEAD INJURY Inpatient Physical Therapy Treatment Note [facility] Date: 09/16/2019 SUBJECTIVE: Radha states that she is angry. She is a bit confused this am, not sure where she is. Can't understand why her family is not here. OBJECTIVE: [] BED MOBILITY/TRANSFERS Sit-stand: SBA Stand-sit: SBA GAIT Assistive Device: FWW] Weight bearing: FWB Assist: CGA/SBA Distance: 600' THEREX: global LE strengthening routine while seated in chair. See flowsheet for details. ASSESSMENT: Pt unsafe with movements. No LOB, but was occupied with the catheter tube, and kept reaching and pulling on it during our walk. She raced through her exercises, to prove that she could do them and that it was unnecessary! She does seem to have good strength. She doubled her distance in walking today, and noted less Trandelenburg. No c/o her foot hurting today. PLAN: will continue to progress following PT POC. She has just about met her PT goals. TREATMENT CODE/TIME: 25 min. [id number], [id number].
--- NOTE | 2019-09-16 12:13 | PGE_ITS ---
Date of Service Date of service: 09/16/19 Time of Service: 12:13 Assessment and Plan Assessment and plan (1) Paroxysmal atrial fibrillation with rapid ventricular response: Status: Resolved Assessment and plan: Currently remains in sinus rhythm ever since she converted after Lopressor in the emergency department. She remains on Lopressor 25 mg p.o. every 8 hours. Convert this to a long-acting Toprol-XL which should help improve her compliance with her medications. She is not a candidate for anticoagulation due to her history of GI bleeding and frequent falls. (2) Syncope: Status: Chronic Assessment and plan: No evidence of seizures. Syncopal event was probably related to her dehydration and rapid atrial fibrillation. No further syncopal spells since admission. We will transfer out to the medical/surgical floor but continue with telemetry monitoring (3) Closed head injury: Status: Acute Assessment and plan: Patient showing no acute neurologic deterioration and in fact is more alert and oriented and seems to be appropriate most of the time. Nursing staff does report that at times she seems mildly confused. Given her history of closed head injury I repeat a CT scan of her head without contrast to be sure there is no subdural bleed. (4) Elevated troponin: Status: Acute Assessment and plan: Transient elevation of her troponin level secondary to demand ischemia from rapid atrial fibrillation. No further cardiac work-up is planned at this time per Dr. Jennings's recommendation as well as the patient and her family's request. (5) Post concussive syndrome: Status: Acute Assessment and plan: As above (6) Forehead laceration: Status: Acute Assessment and plan: sutured in the ED. Wound care consulted. (7) Adrenal insufficiency: Status: Acute Assessment and plan: Will DC high-dose IV hydrocortisone and transition over to prednisone. We will put her on prednisone 20 mg daily for couple days and then decrease her back to her 7.5 mg daily dose. (8) Encephalopathy acute: Status: Resolved Assessment and plan: Multifactorial, due to closed head injury, post- concussive syndrome, hyponatremia. From my review of the patient's previous neurological consult notes from Dr. Hope she appears to have some long-term mild cognitive impairment or even early dementia. Per my exam she seemed to be fairly alert and oriented and answering questions appropriately. Nursing staff however states that time she is confused. I will get a follow-up noncontrast CT scan of her head and if this is negative we will just continue to monitor her neurocognitive status. At this time there is no immediate metabolic cause however this may have been multifactorial including chronic cognitive impairment along with acute on chronic hyponatremia and a postconcussive syndrome (9) Hyponatremia: Status: Chronic Assessment and plan: Multifactorial including SIADH and chronic adrenal insufficiency. Now that her acute kidney injury has resolved and I discontinued her IV fluids and place her on a fluid restricted diet and monitor her electrolytes and BUN and creatinine. 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 (11) PMR (polymyalgia rheumatica): Status: Chronic Assessment and plan: DC high-dose IV corticosteroids and transition to prednisone.. PT consult.. (12) Ambulatory dysfunction: Status: Acute Assessment and plan: PT consulted. (13) Discharge planning issues: Status: Acute Assessment and plan: No longer meeting ICU criteria. Will transfer to medical/surgical floor but with continued telemetry monitoring. Will discontinue IV fluids and Ly catheter and transition over to oral rasheed icosteroids and discontinue her antibiotics. If there is no clinical deterioration or laboratory deterioration overnight then can plan for discharge home. I do have concerns about her living alone and will discuss her living condition with her son. (14) DVT prophylaxis: Status: Acute Assessment and plan: TEDs/SCDs Subjective Subjective Interval history since last seen: 83-year-old female who was admitted on September 14, 2019 via EMS after having symptoms of nausea vomiting and headaches and sustained a fall with a closed head injury. Patient's past medical history is significant for paroxysmal atrial fibrillation for which she formally been on warfarin but she is no longer on anticoagulation due to a history of frequent falls as well as a history of GI bleeding. Patient has been maintained on metoprolol tartrate for her atrial fibrillation. She also has a history of chronic hyponatremia with baseline serum sodium 132-135 but on admission her serum sodium was down to 128. She has scalp laceration of her right forehead which was sutured in the emergency department. Work-up in emergency department included a CT scan of her head as well as her neck and CT scan of her abdomen and pelvis as well as a chest x-ray. No acute intracranial abnormalities were seen. Neck CT showed no fracture or subluxation. Chest x-ray showed no acute pulmonary pathology. Laboratory work-up was significant for low sodium of 128, low sodium of 3.3, elevated BUN and creatinine of 19 and 1.49 and lactic acidosis with elevated anion gap of 12.9 with a lactate level of 1.6. She was noted to be in rapid atrial fibrillation and while her initial troponin was normal at 0.05 it peaked at 1.27 on the evening of admission and is subsequently declined to 0.2. Her initial EKG demonstrated atrial fibrillation rate of 134 bpm with nonspecific inferolateral ST depression which subsequently improved once she converted to sinus rhythm. She converted to sinus rhythm after single dose of Lopressor 5 mg IV given in the emergency department. Consultation was obtained by Dr. Hopson with [facility] cardiology recommended that the patient did not require transfer and that this is probably demand ischemia from her atrial fibrillation. They recommended aspirin, high- dose statin, echocardiogram, trending of the troponins and rate control with beta-blockers. Patient has subsequently had a in-house cardiology consultation with Dr. Jennings see her note for details. Because of the patient's prior history of frequent falls as well as GI bleeding is not recommended that she receive anticoagulation and Dr. Jennings agrees with control of her rate and rhythm with beta-blockers. She does not recommend further cardiology testing given the patient's history of mild cognitive impairment as well as the family's indication that the patient would not want further invasive testing. Because of the patient's history of polymyalgia rheumatica and chronic prednisone use she was treated with high-dose IV corticosteroids to prevent acute adrenal crisis due to her chronic adrenal insufficiency from chronic steroid use. She was worked up for potential infectious cause for her symptoms and was given IV fluids for her acute kidney injury from dehydration. Ly catheter was placed because of urinary retention. Patient has remained afebrile throughout her hospital course and her initial leukocytosis of 16,000 on admission came down to normal level of 10,000 yesterday but is increased to 15,000 today. Her blood cultures have shown no growth since admission. Her urine culture also showed no growth although her initial urinalysis was equivocal and that demonstrated moderate bacteria but was negative for nitrites and leukocyte Estrace. However was positive for renal cells and casts as well as protein and ketones. She was initially treated with vancomycin and ceftriaxone which she is still receiving but will be discontinued. I think her leukocytosis today can be explained on the basis of high-dose corticosteroids. However she did have an elevated procalcitonin level on admission that was quite high at 108. Dr. Basilio did some research and found that this can be quite high in the setting of acute adrenal insufficiency. Patient currently denies any chest pain or dyspnea nor any rigors and she remains afebrile. Her serum sodium is now up to 133 and her anion gap is normal and her BUN and creatinine are normal as well as her serum potassium. I will get a repeat her procalcitonin level and discontinue her antibiotics. I will discontinue her IV fluids as well as her Ly catheter. We will monitor her overnight and if there is no deterioration in her labs or her clinical status we will be looking at discharging her home tomorrow. I think the patient is back to her baseline mental status which is a mild cognitive impairment to mild dementia. I did a Mini-Mental status exam. She is alert and she is oriented to place time and circumstance. She was able to tell me the month and year correctly and she was close on the date she thought it was 16 September. She recall that 1 of her son-in-law's birthday is September 17. I do have concerns about her going home and living alone because she has had a history of frequent falls including one that led to a right hip fracture in April of this year. There is been some concern about whether she is taking her medications properly. This may have led to her acute confusion and rapid atrial fibrillation and her syncopal event. She swears to me that she has been taking her metoprolol and her prednisone correctly. She told me that her prednisone dose is 7.5 mg daily and that she does not miss any doses. I may transition her off of high-dose hydrocortisone and do a rapid taper back down to her baseline dose 7.5 mg. I will put her on 20 mg of prednisone daily for couple of days and then decrease her back down to her 7.5 mg dose. I will discontinue her vancomycin and ceftriaxone and watch her temperature curve overnight and repeat her CBC in the morning. Exam Narrative Exam Narrative: Elderly female sitting up in her chair watching TV. She is little bit hard of hearing but was able to understand me in spite of my face mask. She has a small laceration that is been closed by primary intention with sutures over the right forehead. She is alert and she is oriented to person place time and circumstance. Lungs are clear to auscultation. Heart is regular rate and rhythm without murmur rub or gallop. Abdomen soft and nontender. Neurologic exam is grossly intact no facial asymmetry no dysarthric speech full extraocular motion intact normal range of motion her upper and lower extremities. Mini-Mental status exam was given to her. She was unable to accurately count back from 100 by sevens. She did get 93 correctly but then got down to 84 incorrectly but then correctly stated 77. She missed spelled world backwards by 1 letter. She was able to interpret the paradigm what does it mean to not cry over spilled milk. She had trouble with short-term recall and I gave her the 3 items to remember which included ball, fire truck, traffic light. She could only recall fire truck. I had a copy an intersecting pattern of a pentagon and a triangle which she was able to reproduce fairly accurately. Objective Objective Clinical Data: Abnormal lab results 09/16/19 09/16/19 09/16/19 Range/Units 06:10 06:10 07:50 WBC 15.55 H D (4.4-10.8) k/cumm Absolute Neutrophils 13.95 H (1.2-6.7) k/cumm Absolute Lymphocytes 0.65 L (1.2-3.4) k/cumm Absolute Monocytes 0.90 H (0.11-0.7) k/cumm Sodium 133 L (136-145) mmol/L Glucose 131 H (74-106) mg/dL Troponin I 0.20 H* (<0.06) ng/mL Vital Signs Temperature 36.5 C 09/16/19 07:55 Temperature Source Temporal Artery Scan 09/16/19 07:55 Pulse 91 H 09/16/19 08:49 Pulse 98 H 09/16/19 08:49 Respiratory Rate 11 L 09/16/19 08:49 Respiratory Effort 09/16/19 07:55 Respiratory Depth Normal 09/16/19 07:55 Respiratory Pattern Normal 09/16/19 07:55 Blood Pressure 152/87 H 09/16/19 08:49 Blood Pressure Mean 94 09/16/19 08:49 Blood Pressure Position Supine 09/16/19 07:55 Pulse Oximetry 95 09/16/19 07:55 Oxygen Delivery Method Room Air 09/16/19 07:55 Oxygen Flow Rate 0 09/16/19 07:55 Pain Level 0 09/16/19 07:55 Intake & Output 09/15/19 09/16/19 09/16/19 23:59 11:59 23:59 Intake Total 1200 / 3400 1710 / 1710 Output Total 600 / 1475 1450 / 1450 Balance 600 / 1925 260 / 260 Intake: IV 350 / 2350 1250 / 1250 Oral 850 / 1050 460 / 460 Output: Urine 600 / 1475 1450 / 1450 Other: Urine Color Yellow Pale Yellow Urine Appearance Clear Clear Comment Indwelling Ly catheter due to urinary retention. Indwelling Ly catheter due to urinary retention; draining pale urine. Laboratory Results WBC 15.55 k/cumm (4.4-10.8) H D 09/16/19 06:10 RBC 4.38 m/cumm (4.00-5.20) 09/16/19 06:10 Hgb 12.8 g/dL (12.0-15.5) 09/16/19 06:10 Hct 37.8 % (36.0-46.0) 09/16/19 06:10 MCV 86.3 fL (80-95) 09/16/19 06:10 MCH 29.2 pg (27.0-33.0) 09/16/19 06:10 MCHC 33.9 g/dL (32.0-36.0) 09/16/19 06:10 RDW 14.4 % (11.7-14.6) 09/16/19 06:10 Plt Count 301 x1000/uL (130-400) 09/16/19 06:10 MPV 10.6 fL (8.0-11.0) 09/16/19 06:10 Immature Gran % 0.3 % 09/16/19 06:10 Neutrophils % 89.7 09/16/19 06:10 Lymphocytes % 4.2 09/16/19 06:10 Monocytes % 5.8 09/16/19 06:10 Eosinophils % 0.0 09/16/19 06:10 Basophils % 0.0 09/16/19 06:10 Absolute Neutrophils 13.95 k/cumm (1.2-6.7) H 09/16/19 06:10 Absolute Lymphocytes 0.65 k/cumm (1.2-3.4) L 09/16/19 06:10 Absolute Monocytes 0.90 k/cumm (0.11-0.7) H 09/16/19 06:10 Absolute Eosinophils 0.00 k/cumm (0.0-0.7) 09/16/19 06:10 Absolute Basophils 0.00 k/cumm (0.0-0.2) 09/16/19 06:10 Differential Comment Agrees w/ instrument 09/14/19 09:40 RBC Morphology Normal 09/14/19 09:40 ESR 19 mm/hr (0-30) 09/15/19 06:10 PT 11.0 sec (9.3-11.0) 09/14/19 09:40 INR 1.1 (0.9-1.1) 09/14/19 09:40 APTT 24.4 sec (21.0-31.4) 09/14/19 09:40 Sodium 133 mmol/L (136-145) L 09/16/19 06:10 Potassium 3.7 mmol/L (3.5-5.1) 09/16/19 06:10 Chloride 99 mmol/L (98-107) 09/16/19 06:10 Carbon Dioxide 23.7 mmol/L (21.0-32.0) 09/16/19 06:10 Anion Gap 10.3 mmol/L (3-11) 09/16/19 06:10 BUN 10 mg/dL (7-18) D 09/16/19 06:10 Creatinine 0.93 mg/dL (0.55-1.02) 09/16/19 06:10 Estimated GFR/1.73 m2 57.58 (mL/min/1.73m2) 09/16/19 06:10 Glucose 131 mg/dL (74-106) H 09/16/19 06:10 Hemoglobin A1c 5.5 % (3.8-5.6) 09/15/19 06:10 Lactate 1.6 mmol/L (0.6-1.4) H 09/14/19 14:10 Calcium 8.6 mg/dL (8.5-10.1) 09/16/19 06:10 Magnesium 2.0 mg/dL (1.8-2.4) 09/16/19 06:10 Total Bilirubin 0.7 mg/dL (0.2-1.0) 09/15/19 06:10 Conjugated Bilirubin 0.14 mg/dL (0.00-0.20) 09/15/19 06:10 AST 192 U/L (15-37) H 09/15/19 06:10 ALT 316 U/L (14-59) H 09/15/19 06:10 Alkaline Phosphatase 73 U/L (46-116) 09/15/19 06:10 Creatine Kinase 115 U/L (26-192) 09/14/19 09:40 Troponin I 0.20 ng/mL (<0.06) H* 09/16/19 07:50 C-Reactive Protein 2.11 mg/dL (0.0-0.3) H 09/15/19 06:10 Total Protein 6.5 g/dL (6.4-8.2) 09/15/19 06:10 Albumin 3.1 g/dL (3.4-5.0) L 09/15/19 06:10 Triglycerides 50 mg/dL (<150) 09/15/19 06:10 Total Cholesterol 209 mg/dL (<200) H 09/15/19 06:10 LDL Cholesterol, Calc 116 mg/dL (<100) H 09/15/19 06:10 HDL Cholesterol 83 mg/dL (40-60) 09/15/19 06:10 Lipase 80 U/L (73-393) 09/14/19 09:40 Procalcitonin 108.4 ng/mL 09/14/19 14:10 TSH 0.43 uIU/mL (0.36-3.74) 09/15/19 06:10 Urine Color Yellow (Yellow) 09/14/19 12:45 Urine Clarity Clear (Clear) 09/14/19 12:45 Urine pH 7.0 (5-8) 09/14/19 12:45 Ur Specific [place] 1.020 (1.005-1.025) 09/14/19 12:45 Urine Protein 30 mg/dL (Negative) H 09/14/19 12:45 Urine Ketones 40 mg/dL (Negative) H 09/14/19 12:45 Urine Blood Trace-intact (Negative) H 09/14/19 12:45 Urine Nitrite Negative (Negative) 09/14/19 12:45 Urine Bilirubin Negative (Negative) 09/14/19 12:45 Urine Urobilinogen 0.2 EU/dL (Up TO 0.2) 09/14/19 12:45 Ur Leukocyte Esterase Negative (Negative) 09/14/19 12:45 Urine RBC 0-2 HPF (0-2) 09/14/19 12:45 Urine WBC 0-2 HPF (0-5) 09/14/19 12:45 Ur Epithelial Cells Few HPF (Negative) 09/14/19 12:45 Urine Crystals Negative HPF (Negative) 09/14/19 12:45 Urine Bacteria Moderate HPF (Negative) 09/14/19 12:45 Urine Casts 3-5 hyaline LPF (Negative) 09/14/19 12:45 Urine Mucus Trace (Negative) 09/14/19 12:45 Urine Other Few renal (Negative) 09/14/19 12:45 Ur Culture Indicated? Yes 09/14/19 12:45 Urine Glucose Negative mg/dL (Negative) 09/14/19 12:45 COVID-19 PCR Negative (Negative) 09/14/19 12:35 Nasopharyn COVID-19 PCR Not Applicable 09/14/19 12:35 Ref Test Perform Site [facility] 09/14/19 12:35
--- NOTE | 2019-09-16 13:10 | PDOC.CMPRO ---
- If Service Date Differs Date of service: 09/16/19 Time of Service: 13:10 Care Management Progress Note S/O: No change in plan. A review of Colleen's medical chart reveals that she remains on antibiotics but continues to improve. She has had no further syncope episodes since being admitted to the hospital, but has had periods of confusion. Colleen will be moved out of ICU to Med/Surg today, but will continue to be monitored via telemetry. CM will continue to follow. A: Colleen is a 83 year old female admitted to [facility] on 09/14/2019 for N/V, NSTEMI, syncope, SIRS, and a closed head injury. P: Anticipate Colleen will be discharged home [facility] when medically cleared by provider. Her son, Eusebio, will drive her home via private vehicle when ready. She will follow up with her PCP and plan of care as directed. CM will continue to support patient and discharge planning needs.
[2019-09-16 13:30] LABS: Bilirubin Negative (Negative); Blood Large (Negative); Clarity Clear (Clear); Glucose Negative (Negative); Ketones Trace mg/dL (Negative); Leukocyte Esterase Trace (Negative); Nitrite Negative (Negative); Specific Gravity 1.025 (1.005-1.025); Urobilinogen 0.2 EU/dL (Up TO 0.2); pH 6.5 (5-8)
[2019-09-16 13:42] LABS: Bacteria Few HPF (Negative); C & S Indicated? Yes; Casts Negative LPF (Negative); Crystals Negative HPF (Negative); Epithelial Cells Rare HPF (Negative); Mucus Trace (Negative)
--- NOTE | 2019-09-16 14:00 | DI.CT_ITS ---
EXAM: CT HEAD WO CLINICAL HISTORY: confusion, closed head injury. TECHNIQUE: Imaging Protocol: Axial computed tomography images with coronal and sagittal reformatted images were created and reviewed COMPARISON: CT CT HEAD CERVICAL SPINE WO from 09/14/2019 FINDINGS: Ventricles and Extra axial spaces: Normal in size and morphology for the patient's age. Hemorrhage: None. Cerebral parenchyma: There are areas of decreased attenuation in the white matter consistent with sma ll vessel ischemic disease. No acute territorial infarct is present. Midline shift: None. Brainstem/Cerebellum: Normal. Calvarium: Normal. Degenerative changes are seen in the temporomandibular joints bilaterally. Visualized Paranasal sinuses/Mastoids: Clear. Soft Tissues: Mild subcutaneous soft tissue swelling is noted overlying the right frontal bone. IMPRESSION: 1. No acute intracranial process. 2. Soft tissue swelling overlying the right frontal bone. RADIATION DOSE DELIVERED: Total DLP DATA REPOSITORY: All CT scans at this facility are submitted to the National Radiology Data Registry (NRDR) Dose Index Registry (DIR) with the [employer] ([employer]). RADIATION OPTIMIZATION: All CT scans at this facility use at least one of these dose optimization te chniques: automated exposure control; mA and/or kV adjustment per patient size (includes targeted exa ms where dose is matched to clinical indication); or iterative reconstruction.
[2019-09-16 14:01] LABS: Procalcitonin 20.3 ng/mL
--- NOTE | 2019-09-16 14:35 | DI.VRAD_ITS ---
PROCEDURE INFORMATION: Exam: CT Head Without Contrast Exam date and time: 09/16/2019 2:00 PM Age: 83 years old Clinical indication: Confusion, closed head injury TECHNIQUE: Imaging protocol: Computed tomography of the head without contrast. Radiation optimization: All CT scans at this facility use at least one of these dose optimization techniques: automated exposure control; mA and/or kV adjustment per patient size (includes targeted exams where dose is matched to clinical indication); or iterative reconstruction. COMPARISON: CT HEAD CERVICAL SPINE WO 09/14/2019 9:58 AM FINDINGS: Brain: There is no acute intracranial hemorrhage, mass effect or midline shift. No large acute territorial infarct identified. There are patchy regions of hypodensity in the periventricular and subcortical white matter, likely on the basis of chronic microvascular ischemic disease. Ventricles: The ventricles and sulci are prominent in size, which is likely related to global cerebral volume loss. Bones/joints: Degenerative changes are noted involving the bilateral temporomandibular joints. No acute fracture. Sinuses: Visualized sinuses are unremarkable. No fluid levels. Mastoid air cells: Visualized mastoid air cells are well aerated. Soft tissues: Mild subcutaneous soft tissue swelling is noted in the right frontal region. IMPRESSION: 1. No acute intracranial hemorrhage, mass effect or midline shift. 2. Mild subcutaneous swelling in the right frontal region without underlying fracture. Dictated and Authenticated by: Faby Cason MD. Ordering:[facility] Shoshana Ballard MD
[2019-09-16] MEDS: predniSONE 10 MG TAB PO (17:03)
[2019-09-16] MEDS: Metoprolol CR 50 MG TABCR PO (19:31)
[2019-09-17 00:05] VITALS: BP 182/73; PULSE 72; RESP 18; TEMP 37; O2SAT 96
[2019-09-17] MEDS: Acetaminophen 325 MG TAB PO ×2 (01:35→05:40)
[2019-09-17 03:22] VITALS: BP 174/73; PULSE 62; RESP 17; TEMP 37; O2SAT 95
[2019-09-17 07:05] LABS: Abs Immature Grans 0.02 k/cumm (0.0-0.09); Absolute Eosinophil Count 0.02 k/cumm (0.0-0.7); Absolute Monocyte Count 1.15 k/cumm (0.11-0.7); Eosinophils % 0.2; HCT 37.3 % (36.0-46.0); HGB 12.7 g/dL (12.0-15.5); Immature Grans % 0.2 %; Lymphocytes % 17.7; Mean Corpuscular Hemoglobin 29.3 pg (27.0-33.0); Mean Corpuscular Volume 85.9 fL (80-95); Mean Platelet Volume 10.1 fL (8.0-11.0); Monocytes % 9.8; Neutrophils % 72.1; Platelet Count 284 x1000/uL (130-400); RBC 4.34 m/cumm (4.00-5.20); RBC Distribution Width 14.4 % (11.7-14.6); White Blood Cell Count 11.78 k/cumm (4.4-10.8)
[2019-09-17] MEDS: Pantoprazole 20 MG TABCR PO (07:07)
[2019-09-17 07:12] LABS: Anion Gap 8.4 mmol/L (3-11); BUN 12 mg/dL (7-18); CO2 26.6 mmol/L (21.0-32.0); CREATININE 0.77 mg/dL (0.55-1.02); Calcium 8.7 mg/dL (8.5-10.1); Chloride 98 mmol/L (98-107); Glucose 102 mg/dL (74-106); Potassium 3.2 mmol/L (3.5-5.1); Sodium 133 mmol/L (136-145)
[2019-09-17 07:18] LABS: Absolute Lymphocyte Count 2.09 k/cumm (1.2-3.4); Absolute Neutrophil Count 8.49 k/cumm (1.2-6.7)
[2019-09-17 07:29] VITALS: BP 150/73; PULSE 80; RESP 19; TEMP 36.7; O2SAT 96
[2019-09-17] MEDS: Metoprolol CR 100 MG TABCR PO (07:44)
[2019-09-17] MEDS: Cholecalciferol (Vitamin D3) 1,000 UNIT TAB 1000 UNITS PO (07:44)
[2019-09-17] MEDS: Aspirin E.C. 81 MG TABEC PO (07:44)
[2019-09-17] MEDS: predniSONE 5 MG TAB 20 MG PO (07:45)
[2019-09-17] MEDS: Vitamins B Comp w/C TAB 1 TAB PO (07:45)
[2019-09-17] MEDS: Bacitracin 1 PACKET TP (07:45)
[2019-09-17] MEDS: Potassium Chloride 20 MEQ TABCR 40 MEQ PO (10:01)
--- NOTE | 2019-09-17 11:55 | PT.INTREAT ---
Date of service: 09/17/19 Time of Service: 08:30 PT Notes Visit Reasons: N/V, NSTEMI, SYNCOPE, SIRS, CLOSED HEAD INJURY Inpatient Physical Therapy Treatment Note [facility] Date: 09/17/2019 SUBJECTIVE: Radha reports that she should be going home. She is agreeable to PT OBJECTIVE: [] BED MOBILITY/TRANSFERS Sit-stand: S Stand-sit: S GAIT Assistive Device:FWW Weight bearing: FWB Assist:SBA Distance: 520' THEREX: brief global LE strengthening see flowsheet for details. ASSESSMENT: she moves well functionally without LOB. Constant cueing to slow her exercises down, she moves very quickly making the exercise not efficient. PLAN: will do stair training tomorrow. TREATMENT CODE/TIME: 20 min [id number].
[2019-09-17 12:20] VITALS: PULSE 79
--- NOTE | 2019-09-17 12:21 | DSE_ITS ---
DS: Diagnosis Discharge Diagnosis (1) Paroxysmal atrial fibrillation with rapid ventricular response: Status: Resolved Asessment and Plan: Patient presented in rapid atrial fibrillation with heart rate in the 140s. Patient was treated with IV Lopressor and then her oral Lopressor dose was increased to 25 mg p.o. every 8 hours and later transition to long-acting Toprol-XL 100 mg daily. Because of her prior history of gastrointestinal bleeding as well as frequent falls she was deemed not to be a candidate for long-term anticoagulation. However she was put on aspirin 81 mg daily for stroke prevention. She is also put on omeprazole 20 mg daily for GI protection. Her rate converted to sinus rhythm and she is remained in sinus rhythm on the current dose of Toprol-XL 100 mg daily. No further cardiology work-up is recommended as per Dr. Jennings. (2) Syncope: Status: Resolved Asessment and Plan: Patient had no further syncopal spells since admission. She had no evidence for seizures. It is felt that her syncopal spell was related to her rapid atrial fibrillation and dehydration. (3) Closed head injury: Status: Resolved Asessment and Plan: CT scan on admission was negative for any intracranial bleed and repeat CT scan was performed on September 14, 2019 and again showed no acute intracranial pathology. She has soft tissue injury to the right forehead including a laceration which was sutured in the emergency department. Sutures will need to come out in the next 4 to 7 days. (4) Elevated troponin: Status: Resolved Asessment and Plan: Transient elevation of her troponin was felt to be due to rate dependent ischemia from her rapid atrial fibrillation. She was not felt to have a transmural infarct. Per Dr. Jennings no further cardiovascular work-up is recommended at this time. Primary goal will be for control of her atrial fibrillation rate and low-dose aspirin. (5) Post concussive syndrome: Status: Resolved Asessment and Plan: Present time patient is back to her baseline status of mild cognitive impairment. Patient's been instructed to use her walker at all times to prevent further falls and head injuries. (6) Forehead laceration: Status: Resolved Asessment and Plan: Forehead laceration was primarily repaired with suturing in the emergency department. Routine wound care includes daily washing with soap and water and patting the wound dry. She needs no topical antibiotics and needs no dressing. Sutures will need to come out in the next 4 to 7 days. (7) Adrenal insufficiency: Status: Chronic Asessment and Plan: Patient is chronically on prednisone for her polymy algia rheumatica. During hospitalization received high-dose hydrocortisone for stress dosing. This was tapered off and she is currently to take 20 mg of prednisone daily for the next few days afterwards he can be tapered quickly down to her 7.5 mg daily dose. (8) Encephalopathy acute: Status: Resolved (9) Hyponatremia: Status: Chronic Asessment and Plan: Patient has chronic hyponatremia and requires mild fluid restriction to 1500 mL/day or 2 quarts of fluids. Repeat BMP has been ordered for next week to monitor her electrolyte status as well as her BUN and creatinine. 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 (12) Ambulatory dysfunction: Status: Chronic Asessment and Plan: Patient is to continue with physical therapy. She received physical therapy while hospitalized. On the day of discharge she was walking with a front wheel walker x520 feet with just standby assistance. She had no loss of balance but required frequent cueing to slow her exercises down. Patient will need continued physical therapy as well as occupational therapy as an outpatient. PT to work on stairs as well as increase her strength and balance. OT to work with the patient on improving her ADL performance to enhance her independence. (13) Discharge planning issues: Status: Resolved Asessment and Plan: Patient will be discharged home. Her son Eusebio is going to stay with her for the next several days. Visiting nurse is to resume services including home nursing to monitor medication compliance as well as education about her chronic medical conditions as well as monitoring her labs. PT and OT services to continue working with the patient to increase her gait, balance, strength, ADL performance. WEIGHTS AND MEASURES SEALER to work with the patient and family to coordinate services between the patient and her PCP. Discharge Plan Disposition Patient Disposition: HOME W/HOME HEALTH SERVICE Condition: Good Discharge Details Chief Complaint: HeadInjury Clinical Impression: Forehead laceration, Closed head injury, Vomiting, Generalized weakness, Elevated troponin Reason For Visit: N/V, NSTEMI, SYNCOPE, SIRS, CLOSED HEAD INJURY Admit Date/Time: 09/14/19 15:20 Admit Provider: Yesenia Basilio Attending Provider: Yesenia Basilio Primary Care Provider: Andrez Anthony ED Provider: Aggie Hopson Hospital Course Hospital Course: 83-year-old female who was admitted on September 14, 2019 via EMS after having symptoms of nausea vomiting and headaches and sustained a fall with a closed head injury. Patient's past medical history is significant for paroxysmal atrial fibrillation for which she formally been on warfarin but she i s no longer on anticoagulation due to a history of frequent falls as well as a history of GI bleeding. Patient has been maintained on metoprolol tartrate for her atrial fibrillation. She also has a history of chronic hyponatremia with baseline serum sodium 132-135 but on admission her serum sodium was down to 128. She has scalp laceration of her right forehead which was sutured in the emergency department. Work-up in emergency department included a CT scan of her head as well as her neck and CT scan of her abdomen and pelvis as well as a chest x-ray. No acute intracranial abnormalities were seen. Neck CT showed no fracture or subluxation. Chest x-ray showed no acute pulmonary pathology. Laboratory work-up was significant for low sodium of 128, low sodium of 3.3, elevated BUN and creatinine of 19 and 1.49 and lactic acidosis with elevated anion gap of 12.9 with a lactate level of 1.6. She was noted to be in rapid atrial fibrillation and while her initial troponin was normal at 0.05 it peaked at 1.27 on the evening of admission and is subsequently declined to 0.2. Her initial EKG demonstrated atrial fibrillation rate of 134 bpm with nonspecific inferolateral ST depression which subsequently improved once she converted to sinus rhythm. She converted to sinus rhythm after single dose of Lopressor 5 mg IV given in the emergency department. Consultation was obtained by Dr. Hopson with [facility] cardiology recommended that the patient did not require transfer and that this is probably demand ischemia from her atrial fibrillation. They recommended aspirin, high-dose statin, echocardiogram, trending of the troponins and rate control with beta-blockers. Patient has subsequently had a in-house cardiology consultation with Dr. Jennings see her note for details. Because of the patient's prior history of frequent falls as well as GI bleeding is not recommended that she receive anticoagulation and Dr. Jennings agrees with control of her rate and rhythm with beta-blockers. She does not recommend further cardiology testing given the patient's history of mild cognitive impairment as well as the family's indication that the patient would not want further invasive testing. Because of the patient's history of polymyalgia rheumatica and chronic prednisone use she was treated with high-dose IV corticosteroids to prevent acute adrenal crisis due to her chronic adrenal insufficiency from chronic steroid use. She was worked up for potential infectious cause for her symptoms and was given IV fluids for her acute kidney injury from dehydration. Ly catheter was placed because of urinary retention. Patient has remained afebrile throughout her hospital course and her initial leukocytosis of 16,000 on admission came down to normal level of 10,000 yesterday but is increased to 15,000 today. Her blood cultures have shown no growth since admission. Her urine culture also showed no growth although her initial urinalysis was equivocal and that demonstrated moderate bacteria but was negative for nitrites and leukocyte Estrace. However was positive for renal cells and casts as well as protein and ketones. She was initially treated with vancomycin and ceftriaxone which she is still receiving but will be discontinued. I think her leukocytosis today can be explained on the basis of high-dose corticosteroids. However she did have an elevated procalcitonin level on admission that was quite high at 108. Dr. Basilio did some research and found that this can be quite high in the setting of acute adrenal insufficiency. Repeat CBC on the day of discharge showed decline in her leukocytosis down to 11,000. Repeat BMP on the day of discharge showed her potassium dropped to 3.2. She was given a 40 mEq of potassium chloride orally and discharged home on a prescription of 20 M EQ's of potassium chloride twice a day. Her rhythm on the day of discharge was sinus rhythm with her heart rate in the 70s. She is discharged home on a new prescription of Toprol-XL 100 mg once a day. This replaces her previous Lopressor dose. Patient was given an order for follow-up BMP to be done in the next 3 to 5 days. At the time of discharge her blood cultures from September 13 have remained no growth. Her urine culture from September 13 showed no growth. There is a repeat urine culture pending at this time from September 15. This was sent for culture on a reflex order from the laboratory due to her repeat urinalysis from September 15 showing trace of leukocyte Estrace with 10-20 white blood cells per high-power field as well as microscopic hematuria. However this was from a catheterized specimen. It did show a few bacteria. The patient was not discharged on any antibiotics at this time. With respect to her forehead laceration. She should see her PCP within the next week to have the sutures removed. She can wash daily with soap and water and pat the wound dry. No need for dressing nor any antibiotic ointments. Patient will resume home health services including physical therapy, Occupational Therapy, nursing as well as medical secretary. Physical therapy will continue to work with her gait and balance and strength. Occupational Therapy is to maximize her independent performance of her ADLs. protective services case worker will coordinate her services with her PCP. Nursing is also to obtain any labs and work with the PCP on any further orders with regard to education of her medications and monitoring of her medication compliance. Home Meds and New Rx's Prescriptions: New metoprolol succinate 100 mg Tablet Extended Release 24 Hr 100 mg PO DAILY Qty: 90 RF: 0 aspirin 81 mg Tablet,Delayed Release (Dr/Ec) 81 mg PO DAILY Qty: 100 RF: 0 potassium chloride [Klor-Con M20] 20 mEq Tablet,Er Particles/Crystals 20 meq PO BID Qty: 60 RF: 0 omeprazole 20 mg capsule,delayed release(DR/EC) 20 mg PO DAILY Qty: 30 RF: 3 Continued cholecalciferol (vitamin D3) [Vitamin D3] 25 mcg (1,000 unit) capsule 1,000 unit PO DAILY Qty: 90 RF: 4 diabvxzokx-vzfnqwuitqlvl-aotg 50-325-40 mg capsule 1 cap PO Q6H PRN (Reason: pain) Qty: 60 RF: 3 acetaminophen 500 mg Tablet 1,000 mg PO PRN PRNRF: 0 B-complex with vitamin C [Super B Complex-Vitamin C] Tablet 1 tab PO DAILY RF: 0 coenzyme Q10 [CoQ-10] 100 mg Capsule 200 mg PO DAILY RF: 0 Changed prednisone 5 mg tablet 20 mg PO DAILY Qty: 135 RF: 3 Discontinued metoprolol tartrate 25 mg tablet 25 mg PO BID Qty: 180 RF: 4 Discharge Instructions Instructions: A-fib (Atrial Fibrillation) (DC), Care For Your Stitches (DC), Concussion (DC), Acute Wound Care (DC), Secondary Adrenal Insufficiency (DC) Additional Instructions: Discontinue her metoprolol tartrate and replace this with metoprolol succinate 100 mg once a day. Get a repeat lab work including a basic metabolic profile in 3 to 5 days. This will by her primary care provider to follow-up on your potassium level as well as your kidney function. See your primary care provider within the next week to have your sutures removed from your forehead. Keep the wound clean and dry. You may wash it with antibacterial soap and water and pat the wound dry. There is no need for dressing over the wound. Stand Alone Forms: Nursing Discharge Form Referrals: Andrez Anthony MD [Primary Care Provider] - (Call the office on Wednesday morning for a follow-up appointment in the next week) Activity:: Activity as Tolerated Equipment/Supplies:: No Equipment Needed Diet:: Limit fluids to no more than 2 quarts per day Discharge Orders Discharge Orders: Discharge Order (Routine); Ordered 09/17/19 Ordered By: Elio Anna Other Ambulatory Orders: Basic Metabolic Panel (Routine) Timeframe: 3 Days Facility: [facility] - Location: Laboratory Outpatient Ordered By: Elio Anna DS: Summary Status at Discharge Functional status at discharge: uses cane/walker Overall status at discharge: patient is progressing back to baseline Mental Status: other Speech and Movement: speech and movement normal Mood: congruent mood and other Affect: normal affect Time Spent with Patient providing and/or coordinating discharge services: Greater than 30 minutes Specific discharge activities: Reconciling home medications, writing new prescriptions, discussing post discharge care with her son, coordination services with case finisher and nursing Exam Narrative Exam Narrative: Elderly female sitting up in her chair asleep but easily awakens. She has a small laceration that is been closed by primary intention with sutures over the right forehead. She is oriented to person place time and circumstance. Lungs are clear to auscultation. Heart is regular rate and rhythm without murmur rub or gallop. Abdomen soft and nontender. Neurologic exam is grossly intact no facial asymmetry no dysarthric speech full extraocular motion intact normal range of motion her upper and lower extremities. Psych Mental Status: other Speech and Movement: speech and movement normal Mood: congruent mood and other Affect: normal affect DS: Data Vitals/I&O Vitals and I&O: Vital Signs Temperature 36.7 C 09/17/19 07:29 Temperature Source Temporal Artery Scan 09/17/19 07:29 Pulse 80 09/17/19 07:29 Pulse Rhythm Regular 09/17/19 08:51 Pulse 74 09/16/19 14:00 Respiratory Rate 19 09/17/19 07:29 Respiratory Effort Non-Labored 09/17/19 08:51 Respiratory Depth Normal 09/17/19 08:51 Respiratory Pattern Normal 09/17/19 08:51 Blood Pressure 150/73 H 09/17/19 07:29 Blood Pressure Mean 91 09/16/19 12:16 Blood Pressure Position Sitting 09/16/19 12:15 Pulse Oximetry 96 09/17/19 07:29 Oxygen Delivery Method Room Air 09/17/19 07:29 Oxygen Flow Rate 0 09/17/19 07:29 Pain Level 0 09/17/19 07:29 Comment 09/17/19 07:29 Intake & Output 09/16/19 09/17/19 09/17/19 23:59 11:59 23:59 Intake Total 1270 / 2980 300 / 300 Output Total 675 / 2125 0 / 0 Balance 595 / 855 300 / 300 Weight 57.2 kg Intake: IV 1030 / 2280 Oral 240 / 700 300 / 300 Output: Urine 675 / 2125 0 / 0 Other: Urine Color Yellow Yellow Urine Appearance Clear Clear Comment UA collected and sent Stool Occult Blood Negative Stool Size Moderate Stool Characteristics Soft Brown Voiding Methods Toilet Toilet Data Completed and Pending Labs on day of discharge: Labs from last 24 hours 09/17/19 09/17/19 09/16/19 06:25 06:25 13:15 WBC 11.78 H RBC 4.34 Hgb 12.7 Hct 37.3 MCV 85.9 MCH 29.3 MCHC 34.0 RDW 14.4 Plt Count 284 MPV 10.1 Immature Gran % 0.2 Neutrophils % 72.1 Lymphocytes % 17.7 Monocytes % 9.8 Eosinophils % 0.2 Basophils % 0.0 Absolute Neutrophils 8.49 H Absolute Lymphocytes 2.09 Absolute Monocytes 1.15 H Absolute Eosinophils 0.02 Absolute Basophils 0.00 Sodium 133 L Potassium 3.2 L Chloride 98 Carbon Dioxide 26.6 Anion Gap 8.4 BUN 12 Creatinine 0.77 Estimated GFR/1.73 m2 >= 60.00 Glucose 102 Calcium 8.7 Procalcitonin Urine Color Yellow Urine Clarity Clear Urine pH 6.5 Ur Specific [place] 1.025 Urine Protein 30 H Urine Ketones Trace H Urine Blood Large H Urine Nitrite Negative Urine Bilirubin Negative Urine Urobilinogen 0.2 Ur Leukocyte Esterase Trace H Urine RBC 10-20 H Urine WBC 10-20 H Ur Epithelial Cells Rare Urine Crystals Negative Urine Bacteria Few Urine Casts Negative Urine Mucus Trace Ur Culture Indicated? Yes Urine Glucose Negative 09/16/19 06:10 WBC RBC Hgb Hct MCV MCH MCHC RDW Plt Count MPV Immature Gran % Neutrophils % Lymphocytes % Monocytes % Eosinophils % Basophils % Absolute Neutrophils Absolute Lymphocytes Absolute Monocytes Absolute Eosinophils Absolute Basophils Sodium Potassium Chloride Carbon Dioxide Anion Gap BUN Creatinine Estimated GFR/1.73 m2 Glucose Calcium Procalcitonin 20.3 Urine Color Urine Clarity Urine pH Ur Specific [place] Urine Protein Urine Ketones Urine Blood Urine Nitrite Urine Bilirubin Urine Urobilinogen Ur Leukocyte Esterase Urine RBC Urine WBC Ur Epithelial Cells Urine Crystals Urine Bacteria Urine Casts Urine Mucus Ur Culture Indicated? Urine Glucose Preliminary micro results at discharge 09/16/19 13:15 Urine Culture - Preliminary Urine - Reflex from Ua 09/14/19 14:35 Blood Culture - Preliminary Blood NO GROWTH 48 HOURS 09/14/19 14:10 Blood Culture - Preliminary Blood NO GROWTH 48 HOURS PFS Surgical History Cholecystectomy (~01/2007) Closed right hip fracture (Acute 05/03/19) S/P ORIF with cannulated screw fixation on 05/04/2019 Colonoscopy - MAC Hemorrhoidal Banding (04/27/17) Status post cataract extraction and insertion of intraocular lens of left eye (Chronic 05/02/18) Status post cataract extraction and insertion of intraocular lens of right eye (Chronic 05/16/18) Social History Smoking/Tobacco Use Status: Never Alcohol Intake: never Drug use: Never Substance use type: does not use current occupation: Cleaning Services Pets and animals: No What type of physical activity do you participate in: none Jennifer/Zoroastrian: Taoism Special jennifer needs: No Do you feel safe at home: Yes Do you feel safe in your relationship?: Yes
[2019-09-17] MEDS: Potassium Chloride 20 MEQ TABCR PO (13:27)
--- NOTE | 2019-09-17 13:53 | CMDISCH_ITS ---
- If Service Date Differs Date of service: 09/17/19 Time of Service: 13:53 LACE Index Scoring Tool - Questions: Length of Stay (in days): 2 Acuity (Admit via E.D.?): Yes E.D. Visits: 6 - Answers: Total Score: 9 Risk of Readmission: Low Risk Care Management Discharge Reason for Hospitalization: N/V, NSTEMI, Syncope, SIRS, Closed head injury Discharge Plan: Colleen is being discharged home with a resumption of [facility] nursing and PT. She will follow up with her PCP and discharge plan of care as directed. Her son, Eusebio, is driving her home via private vehicle. Patient/Family Education Needs: Nursing will review discharge instructions re medications, activity level, follow up plan, including Ask Me Three and self- management. Services Needed at Discharge: Home Health Care Services (RN and PT)
--- NOTE | 2019-09-19 09:11 | PT.INDS ---
Date of service: 09/19/19 Time of Service: 09:11 PT Notes Visit Reasons: N/V, NSTEMI, SYNCOPE, SIRS, CLOSED HEAD INJURY Physical Therapy Inpatient Discharge Summary Date: 09/19/2019 Dates of service: 09/15/2019 through 09/17/2019 This is a clinical summary of care provided on the duration of dates listed above. No charge was made in the completion of this documentation. Referring Doctor: Yesenia Basilio MD PT Orders: PT CONSULT: Limited ability Precautions: Fall. Standard. Activity as tolerated. Patient Profile/Admitting Diagnosis: Colleen is an 83-year-old female with past medical history significant for polymyalgia rheumatica and S/P ORIF for a R femoral neck fracture 0n 05/04/2019 who presented to the ED on 09/14/2019 with chief complaints of headache and vomiting for the past few days. She also had a fall with head injury yesterday morning prior to ED arrival. Patient is diagnosed with elevated troponin, syncope, closed head injury, post concussion syndrome, forehead laceration, adrenal insufficiency, encephalopathy, hyponatremia, and ambulatory dysfunction with referral to skilled therapy services to address ongoing mobility impairments. PMHX: Medical History Atrial flutter (Chronic) paroxysmal, Atrial fib/flutter, rate controlled, not on anticoagulation. Zio Patch ordered. Celiac disease (Chronic 06/12/13) Cortical cataract of left eye (Resolved) DVT (deep venous thrombosis) (Chronic) s/p hemorrhoid banding Epiretinal membrane (ERM) of left eye (Chronic) GERD (gastroesophageal reflux disease) History of pelvic fracture (Chronic) Nuclear sclerotic cataract of left eye (Resolved) Osteoarthritis Osteoporosis (Chronic) Paroxysmal atrial fibrillation Polymyalgia rheumatica Polymyalgia rheumatica (Resolved 08/14/14) Spinal stenosis (Acute) Surgical History Cholecystectomy (~01/2007) Colonoscopy - MAC Hemorrhoidal Banding (04/27/17) Status post cataract extraction and insertion of intraocular lens of left eye (Chronic 05/02/18) Status post cataract extraction and insertion of intraocular lens of right eye (Chronic 05/16/18) Social History/Home Situation: Patient lives alone in a private home with 1 step that leads to a porch and then another step to the entrance door. She is independent with all aspects of ADLs using a cane for all outdoor ambulation and a front wheeled walker for indoors. She she voices that she has not driven for several months now. She says that she has family members who live close by who can help as needed. Equipment Owned/DME: Front-wheeled walker, single-point cane Subjective: NT. See most recent [facility] notes. Objective: General Observation: NT. See most recent [facility] [facility] [employer] notes. Mental Status: NT. See most recent [facility] [facility] [employer] notes. Pain: NT. See most recent [facility] [employer] notes. ROM: Right Upper Extremity: Shoulder Flexion WFL. Shoulder abduction WFL. Elbow flexion WFL. Wrist flexion WFL. Opening and closing of hand WFL. Left Upper Extremity: Shoulder Flexion WFL. Shoulder abduction WFL. Elbow flexion WFL. Wrist flexion WFL. Opening and closing of hand WFL. Right Lower Extremity: Hip flexion allows about 10 degrees beyond 90 while seated on the edge of the bed. Hip abduction WFL. Knee flexion WFL. Ankle dorsiflexion WFL. Ankle plantarflexion WFL. Left Lower Extremity: Hip flexion WFL. Hip abduction WFL. Knee flexion WFL. Ankle dorsiflexion WFL. Ankle plantarflexion WFL. Strength: Right Upper Extremity: Shoulder flexors 4/5. Shoulder abductors 4/5. Elbow flexors 45. Elbow extensors 4/5. Dialysis Registered Nurse strong. Left Upper Extremity: Shoulder flexors 4/5. Shoulder abductors 4/5. Elbow flexors 45. Elbow extensors 4/5. Dialysis Registered Nurse strong. Right Lower Extremity: Hip flexors 3+/5. Hip abductors 3+/5. Knee flexors 3+/5. Knee extensors 3+/5. Ankle dorsiflexors 3+/5. Ankle plantarflexors 4-/5. Left Lower Extremity: Hip flexors 3+/5. Hip abductors 3+/5. Knee flexors 3+/5. Knee extensors 3+/5. Ankle dorsiflexors 3+/5. Ankle plantarflexors 4-/5. Sensation: Intact as to pain and pressure on left lower extremity Bed Mobility/Transfers: Supine to sit minimal assist Sit to supine CGA Sit to stand CGA Stand to sit CGA Bed to chair CGA Chair to bed CGA Gait: Patient tolerated short distance ambulation of about 520 feet using the front wheeled walker with SBA. Reciprocal step-through gait pattern. Decreased step height and length on the right side. Minimal verbal cues provided for safe gait pattern and walker management. L pelvic dipping seen due to weak R gluteus medius or may be a result of her sore R sole of foot. Asymmetric step length and height. Decreased rosemary. Balance: Static Sitting: Normal Dynamic Sitting: Normal Static Standing: Fair Dynamic Standing: Fair Assessment: Colleen continues to demonstrates functional mobility decline requiring the use of front wheeled walker for all mobility ADL performance, difficulty in walking, generalized weakness, and impairment in balance awareness resulting from admitting diagnoses. Colleen is an 83-year-old female with past medical history significant for polymyalgia rheumatica and S/P ORIF for a R femoral neck fracture 0n 05/04/2019 who presented to the ED on 09/14/2019 with chief complaints of headache and vomiting for the past few days. She also had a fall with head injury yesterday morning prior to ED arrival. Patient is diagnosed with elevated troponin, syncope, closed head injury, post concussion syndrome, forehead laceration, adrenal insufficiency, encephalopathy, hyponatremia, and ambulatory dysfunction with referral to skilled therapy services to address ongoing mobility impairments. Patient continues to present with clinical signs and symptoms consistent with current/admitting diagnoses that have resulted to mobility limitations, gait instability, generalized weakness, and impairment of motor control as demonstrated by the following impairment level findings: 1. Decreased strength to B LE major muscle groups 2. Impaired standing balance 3. Impaired activity tolerance Impairments are doing to contribute to the following functional limitations: 1. Dependent bed mobility skills 2. Increased dependence with transfers 3. Inability to safely ambulate without assistive device and physical assistance 4. Increase completion time for mobility ADL performance 5. Increased fall risk 6. Inability to negotiate steps alone safely Goals: Goals X1 week 1. Supine-Sit independent NOT MET 2. Sit-Supine independent NOT MET 3. Sit-Stand independent NOT MET 4. Stand-Sit independent NOT MET 5. Bed-Chair independent NOT MET 6. Chair-Bed independent NOT MET 7. Independent gait on level surface with use of least restrictive device for at least 300 feet without report of pain nor dyspnea NOT MET 8. Independent stair negotiation while holding onto bilateral rails for at least 5 steps without report of pain nor dyspnea NOT MET 9. Independent with home exercise program NOT MET 10. Good static and dynamic standing balance/tolerance NOT MET DISCHARGE RECOMMENDATIONS: Patient will benefit from home health PT services in order to progress mobility level using least restrictive assistive ambulatory device, assess home safety, identify additional equipment needs, and establish a functional maintenance program that will increase ability of patient to remain at home. TREATMENT CODE/TIME: NH Thank you for the opportunity to participate in the care of this patient. Denise Ramirez PT, DPT, CLT [facility] [place], [place]
== END 2019-09-17 14:19 | disposition home health service (06) | DRG 309 ==
LOC: ER 14:23 → ICU 17:47 → MS 09-16 14:18
PROVIDERS: Internal Medicine; Admitting Provider Internal Medicine; Emergency Provider Physician Assistant; PCP Family Medicine; Visit Provider Internal Medicine
DX: I48.0 Paroxysmal atrial fibrillation (principal); E22.2 Syndrome of inappropriate secretion of antidiuretic hormone; G93.49 Other encephalopathy; E27.3 Drug-induced adrenocortical insufficiency; I24.8 Other forms of acute ischemic heart disease; N17.9 Acute kidney failure, unspecified; E86.0 Dehydration; I48.92 Unspecified atrial flutter; R55 Syncope and collapse; K21.9 Gastro-esophageal reflux disease without esophagitis; I10 Essential (primary) hypertension; M35.3 Polymyalgia rheumatica; G43.909 Migraine, unspecified, not intractable, without status migrainosus; W19.XXXA Unspecified fall, initial encounter; Y92.009 Unspecified place in unspecified non-institutional (private) residence as the place of occurrence of the external cause; S01.81XA Laceration without foreign body of other part of head, initial encounter; S09.90XA Unspecified injury of head, initial encounter; E87.6 Hypokalemia; Z66 Do not resuscitate; T38.0X5A Adverse effect of glucocorticoids and synthetic analogues, initial encounter; Z11.59 Encounter for screening for other viral diseases; F07.81 Postconcussional syndrome; K90.0 Celiac disease; M19.90 Unspecified osteoarthritis, unspecified site; M81.0 Age-related osteoporosis without current pathological fracture; R26.2 Difficulty in walking, not elsewhere classified; R33.9 Retention of urine, unspecified
CPT/HCPCS: 12011; 36415; 36416; 80048; 80053; 80061; 80076; 82550; 82962; 83690; 84145; 85652; 87040; 93005; 96361; 96374; 96375; 97110; 97162; 97530; 99222; 99232; 99233; 99239; 99253; 99285; 99291; U0003; 70450; 71046; 72125; 74176; 81003; 81015; 83036; 83605; 83735; 84443; 84484; 85025; 85610; 85730; 86140; 87086; 93010; J0780; J1720; J2405; J3490; J7512; L0172

== ENCOUNTER → 2019-09-15 09:39 | Outpatient (BNVA) | payer MEDICARE, OTHER, SELFPAY | PROVIDERS: PCP Family Medicine; Referring Provider Family Medicine; Visit Provider Internal Medicine Cardiovascular Disease | DX: R69 Illness, unspecified (principal) ==

== ENCOUNTER 2019-09-22 11:12 | Outpatient (CLI) | payer MEDICARE, OTHER, SELFPAY ==
[2019-09-22 12:51] LABS: Anion Gap 8.5 mmol/L (3-11); BUN 16 mg/dL (7-18); CO2 26.5 mmol/L (21.0-32.0); Calcium 9.7 mg/dL (8.5-10.1); Chloride 97 mmol/L (98-107); Glucose 109 mg/dL (74-106); Potassium 5.3 mmol/L (3.5-5.1); Sodium 132 mmol/L (136-145)
== END 2019-09-22 11:32 ==
PROVIDERS: PCP Family Medicine; Visit Provider Internal Medicine
DX: E22.2 Syndrome of inappropriate secretion of antidiuretic hormone (principal); E87.6 Hypokalemia; Z51.81 Encounter for therapeutic drug level monitoring
CPT/HCPCS: 36415; 80048

== ENCOUNTER 2019-09-27 02:52 | Outpatient (CLI) | payer MEDICARE, OTHER, SELFPAY ==
--- NOTE | 2019-09-27 09:31 | DI.US_ITS ---
APPROVED REPORT EXAM: Comprehensive 2D, Doppler, and color-flow Echocardiogram Patient Location: Out-Patient Website Admin: Any Ace RDCS (AE) Indications: Elevated Troponin Other Information Study Quality: Good Conclusion Left Ventricle : The left ventricle is normal size. The left ventricular systolic function is normal. The left ventricular ejection fraction is within the normal range. There is normal left ventricular wall thickness. There is normal LV segmental wall motion. The left ventricular diastolic function is normal. LVEF is 60%. Right Ventricle : The right ventricle is normal size. The right ventricular systolic function is low normal. The RVSP is 22.4 mmHg. Atria : The left atrium size is normal. The right atrium size is normal. Aortic Valve : The aortic valve is normal in structure. There is no aortic valvular stenosis. Moderat e aortic regurgitation. Mitral Valve : Moderate mitral annular calcification. No evidence of mitral valve stenosis. Mild mitr al regurgitation. Great Vessels : Aortic root is mildly dilated. IVC is normal in size and collapses >50% with inspirat ion. The ascending aorta is mildly dilated. Aortic arch is normal in caliber. Compared to prior study from 2014 the patient's aortic insufficiency has worsened from mild to modera te. Wall motion Left Ventricle The left ventricle is normal size. The left ventricular systolic function is normal. The left ventric ular ejection fraction is within the normal range. There is normal left ventricular wall thickness. T here is normal LV segmental wall motion. The left ventricular diastolic function is normal. There is no ventricular septal defect visualized. LVEF is 60%. Right Ventricle The right ventricle is normal size. The right ventricular systolic function is low normal. The RVSP i s 22.4 mmHg. Atria The left atrium size is normal. The right atrium size is normal. The interatrial septum is intact wit h no evidence for an atrial septal defect. Aortic Valve The aortic valve is normal in structure. There is no aortic valvular stenosis. Moderate aortic regurg itation. Mitral Valve Moderate mitral annular calcification. No evidence of mitral valve stenosis. Mild mitral regurgitatio n. Tricuspid Valve The tricuspid valve is normal in structure. There is no tricuspid valve stenosis. Trace tricuspid reg urgitation. Pulmonic Valve The pulmonary valve is normal in structure. There is no pulmonic valvular stenosis. Trace pulmonic re gurgitation. Great Vessels Aortic root is mildly dilated. The ascending aorta is mildly dilated. Aortic arch is normal in calibe r. IVC is normal in size and collapses >50% with inspiration. Pericardium There is no pericardial effusion. 2D Dimensions IVSD d PLAX 0.80 cm F: 0.6-1.0 LV Vol A2C d MOD 71.9 mL LVPW d PLAX 0.80 cm F: 0.6 - 1.0 LV Vol A4C d MOD 58.2 mL LVID d PLAX 4.00 cm F: 3.8 - 5.2 LA vol/ BSA A2C s A-L 27.5 mL/m2 LVDs 2.65 cm F: 2.2 - 3.5 LA vol/ BSA A4C s A-L 19.5 mL/m2 Ao Root d 3.50 cm F: 2.7 - 3.3 LA Volume Biplane 34.80 mL Ao Asc Diam d 3.58 cm F: 2.3 - 3.1 LA Vol/ BSA Biplane s A-L 23.2 mL/m2 LV EF Teichholz 63.0 % LA Area A4C s MOD 29.20 cm2 LVEF (Johnson's) 55.00 % F: 54 - 74 LA Area A2C s MOD 41.20 cm2 LV Vol Biplane MOD 67.0 mL LV EF A4C MOD 57.9 % FS 33.60 % LV EF A2C MOD 50.1 % LV EF Biplane MOD 55.4 % SV 37.13 mL SV Index 24.80 mL/m2 M-Mode TAPSE 1.48 cm (M/F) >1.7 LV Diastology MV E' medial 0.049 (>0.07 m/s) E/A Ratio 0.7 LV E/e MED 13.36 (<14) MV E Vmax 0.65 (0.4-1.3 m/s) MV E' lateral 0.054 (>0.1 m/s) MV A Vmax 0.97 (0.4-1.3 m/s) LV E/e LAT 12.14 (<14) MV E/A Ratio 0.67 E Peak Velocity 0.65 m/s A Peak Velocity 0.97 m/s Aortic Valve LVOT Area 3.16 cm2 AoV Area Vmax 2.38 cm2 LVOT Vmax 0.89 m/s AoV Area/ BSA (Vmax) 1.59 cm2/m2 LVOT Mean Christopher. 0.61 m/s MICHELLE Mean Christopher. 2.38 cm2 LVOT Peak Grad 3.2 mmHg MICHELLE Mean Christopher. Index 1.59 cm2/m2 LVOT Mean Grad 1.7 mmHg AR DT 1775 msec LVOT VTI 0.219 m AR PHT 515 msec LVOT Diam s 2.01 cm AoV Vmax 1.19 m/s Velocity Ratio 0.74 AoV Mean Christopher. 2.90 m/s AoV Peak Grad 5.7 mmHg LVOT SV 69.14 mL AoV Mean Grad 2.9 mmHg AoV VTI 0.250 m AoV Area VTI 2.76 cm2 AoV Area/ BSA (VTI) 1.85 cm/m2 Mitral Valve MV PHT 78 msec MV Area PHT 2.84 cm2 Pulmonary Valve PV Vmax 0.83 (0.5-1.5 m/s) PV Peak Grad 2.7 mmHg PV Mean Grad 1.3 mmHg PV VTI 0.147 m Tricuspid Valve TR Peak Grad 19.4 mmHg TR Vmax 2.20 m/s RA Pressure 3.00 mmHg RVSP (TR) 22.4 mmHg
== END 2019-09-27 03:12 ==
PROVIDERS: PCP Family Medicine; Visit Provider Family Medicine
DX: I48.0 Paroxysmal atrial fibrillation (principal); I77.810 Thoracic aortic ectasia; I08.0 Rheumatic disorders of both mitral and aortic valves
CPT/HCPCS: 93306

== ENCOUNTER 2019-11-22 10:36 | Outpatient (CLI) | payer MEDICARE, OTHER, SELFPAY ==
--- NOTE | 2019-11-22 09:45 | DI.RAD_ITS ---
EXAM: XR HIP RT AP LAT ONLY INDICATION: fu right hip. COMPARISON: CR XR HIP RT AP LAT ONLY from 08/22/2019 TECHNIQUE: 2D digital imaging was performed. FINDINGS: Three partially threaded screws are again noted through the proximal femur. There has been no change in fracture or hardware alignment. There is has been continued healing at the fracture site. DATA REPOSITORY: RADIATION DOSE DELIVERED:
== END 2019-11-22 10:56 ==
PROVIDERS: Visit Provider Student in an Organized Health Care Education/Training Program
DX: S72.091D Other fracture of head and neck of right femur, subsequent encounter for closed fracture with routine healing (principal); S72.001D Fracture of unspecified part of neck of right femur, subsequent encounter for closed fracture with routine healing; X58.XXXD Exposure to other specified factors, subsequent encounter
CPT/HCPCS: 99214; 73502

== ENCOUNTER 2019-11-22 20:35 | Emergency (ER) | payer MEDICARE, OTHER, SELFPAY ==
[2019-11-22] VITALS (25 sets, daily range): BP systolic 148–177; BP diastolic 52–82; PULSE 66–72; RESP 10–23; TEMP 36.5; O2SAT 94–100
--- NOTE | 2019-11-22 20:29 | W.ED.GENAD ---
Discharge Plan Disposition Patient Disposition: HOME Condition: Improving Discharge Details Clinical Impression: Headache disorder Primary Care Provider: Aby Salvador ED Provider: Lj Erickson [place] Meds and New Rx's Prescriptions: New prochlorperazine maleate 5 mg tablet 5 mg PO TID PRN (Reason: headache) Qty: 10 RF: 0 Continued prednisone 5 mg tablet 5 mg PO DAILY Qty: 90 RF: 3 topiramate 25 mg tablet 25 mg PO BID Qty: 60 RF: 2 metoprolol succinate 100 mg tablet extended release 24 hr 100 mg PO DAILY Qty: 90 RF: 4 cholecalciferol (vitamin D3) [Vitamin D3] 25 mcg (1,000 unit) capsule 1,000 unit PO DAILY Qty: 90 RF: 4 acetaminophen 500 mg Tablet 1,000 mg PO PRN PRNRF: 0 B-complex with vitamin C [Super B Complex-Vitamin C] Tablet 1 tab PO DAILY RF: 0 coenzyme Q10 [CoQ-10] 100 mg Capsule 200 mg PO DAILY RF: 0 aspirin 81 mg Tablet,Delayed Release (Dr/Ec) 81 mg PO DAILY Qty: 100 RF: 0 omeprazole 20 mg capsule,delayed release(DR/EC) 20 mg PO DAILY Qty: 30 RF: 3 potassium chloride 20 mEq tablet,ER particles/crystals 10 meq PO BID RF: 0 Discharge Instructions Additional Instructions: CT of head tonight remains unchanged. There is no bleed or mass. Continue your topiramate this medication to try to decrease the frequency of headache. May continue acetaminophen and/or ibuprofen as before for mild headaches. Try the prochlorperazine for severe headache. Would follow-up with primary care as well as going back to neurology in attempt to control your headaches. Referrals: Aby Salvador, MARIBEL [Primary Care Provider] - Julissa Hope MD [ [facility] STAFF PHYSICIAN] - Medical Decision Making Patient presenting with more severe headache than she typically has with associated nausea and vomiting. She has had headaches similar to this although they are very infrequent. She does have history of chronic migraines and is followed by her PCP for this. She is neurologically intact here. Her neck is supple. She is not on anticoagulation and denies any recent falls. However, she appears quite uncomfortable and is holding her forehead. She was unable to keep her acetaminophen and ibuprofen down. I would prefer to treat with IV acetaminophen and low-dose IV metoclopramide and see how she responds. However, there is a planned CT downtime occurring tonight for the next 4 to 5 hours. Therefore, I will obtain head CT now given the possibility of no relief of headache with medications. 22:00 -patient reports no change in headache with 5 of Reglan and a gram of IV Tylenol. CT head negative for bleed or acute pathology. Will give another 5 of Reglan and 15 of Toradol. 22:30 -I spoke to the patient's son. I reviewed her medical record deeper. She has seen Dr. Hope for chronic headaches since back in 2018. Appears she has responded to Compazine in the past. Still complaining of headache now and cannot get a handle on whether better worse or unchanged. She appears to be inconsistent with rating her headache. Will try 5 of IV Compazine. Son did state that he would come and get her when she was ready. 00:30 -patient better at this time. Son is on his way to pick her up. Will provide prescription for Compazine tablets to try for severe headache in the future. Recommend touching base with neurology once again as well as follow-up with primary care. Return to ED for neurologic change, fever, persistent vomiting, unrelenting pain. Medical Records Medical records reviewed: Yes I reviewed the patient's medical records. HPI General Mode of arrival: EMS. Date/Time Provider Initiated Documentation: 11/22/19 20:47. Limitations to Documentation: no limitations. Information obtained by: patient, EMS, RN notes reviewed and old records reviewed. HPI Narrative: Patient presents to the ED with frontal headache and associated nausea and vomiting. Patient has history of chronic migraines. She has recently seen primary care and is currently on Topamax for preventive therapy. When she develops headache she usually responds to acetaminophen and ibuprofen. She had an appointment with orthopedics this afternoon. At that time she denies having a headache. Subsequently developed frontal headache of the same quality and location as her usual headaches. However, this headache was more severe than usual and resulted in nausea and vomiting. She was unable to keep her acetaminophen or ibuprofen down. She continued to have severe headache with vomiting and EMS was called. She denies any neurologic changes. She denies fever, cough, shortness of breath, chest pain, abdominal pain. She has had headaches infrequently in the past with resultant nausea and vomiting like tonight. She denies any recent falls or trauma. She does have history of atrial fibrillation but is not on anticoagulation. Related Data Home Medications Medication Instructions Recorded Confirmed B-complex with vitamin C [Super B 1 tab PO DAILY 10/04/18 11/22/19 Complex-Vitamin C] coenzyme Q10 [CoQ-10] 200 mg PO DAILY 10/04/18 11/22/19 acetaminophen 1,000 mg PO PRN PRN 10/10/18 11/22/19 cholecalciferol (vitamin D3) 25 1,000 unit PO DAILY #90 cap 05/26/19 11/22/19 mcg (1,000 unit) capsule aspirin 81 mg PO DAILY #100 tab 09/17/19 11/22/19 omeprazole 20 mg PO DAILY #30 cap 09/17/19 11/22/19 prednisone 5 mg tablet 5 mg PO DAILY #90 tab 10/06/19 11/22/19 topiramate 25 mg tablet 25 mg PO BID #60 tab 11/10/19 11/22/19 metoprolol succinate 100 mg 100 mg PO DAILY #90 tab 11/21/19 11/22/19 tablet,extended release 24 hr potassium chloride 10 meq PO BID 11/22/19 11/22/19 prochlorperazine maleate 5 mg PO TID PRN #10 tab 11/23/19 Previous Rx's Medication Instructions Recorded cholecalciferol (vitamin D3) 25 1,000 unit PO DAILY #90 cap 05/26/19 mcg (1,000 unit) capsule aspirin 81 mg PO DAILY #100 tab 09/17/19 omeprazole 20 mg PO DAILY #30 cap 09/17/19 prednisone 5 mg tablet 5 mg PO DAILY #90 tab 10/06/19 topiramate 25 mg tablet 25 mg PO BID #60 tab 11/10/19 metoprolol succinate 100 mg 100 mg PO DAILY #90 tab 11/21/19 tablet,extended release 24 hr prochlorperazine maleate 5 mg PO TID PRN #10 tab 11/23/19 Allergies Allergy/AdvReac Type Severity Reaction Status Date / Time carbamazepine AdvReac Severe Confusion Verified 11/22/19 20:37 and disorientation morphine AdvReac Intermediate made my Verified 11/22/19 20:37 chest feel likie I was in a vice General HARSHAD: 2 Review of Systems Narrative: As documented in HPI otherwise negative as below. Const: no fever, chills, weakness Resp: no cough, SOB, pleuritic pain CV: no CP, diaphoresis, edema, syncope GI: no abdominal pain, diarrhea Neuro: no numbness, focal weakness, confusion [facility] Medical History Abnormal mammography (03/27/13) Atrial flutter paroxysmal, Atrial fib/flutter, rate controlled, not on anticoagulation. Zio Patch ordered. Celiac disease (06/12/13) Closed head injury Cortical cataract of left eye DVT (deep venous thrombosis) s/p hemorrhoid banding Epiretinal membrane (ERM) of left eye GERD (gastroesophageal reflux disease) History of pelvic fracture Hypokalemia Nuclear sclerotic cataract of left eye Osteoarthritis Osteoporosis Polymyalgia rheumatica (08/14/14) Post concussive syndrome Pyloric ulcer associated with Helicobacter pylori (01/21/05) Spinal stenosis Surgical History Closed right hip fracture (05/03/19) S/P ORIF with cannulated screw fixation on 05/04/2019 Colonoscopy - MAC Hemorrhoidal Banding (04/27/17) Status post cataract extraction and insertion of intraocular lens of left eye (05/02/18) Status post cataract extraction and insertion of intraocular lens of right eye (05/16/18) Status post cholecystectomy Family History Mother No problems noted. 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 Services Pets and animals: No Current gender identity: female What type of physical activity do you participate in: none Jennifer/Islam: Mandaeism Special jennifer needs: No Do you feel safe at home: Yes Do you feel safe in your relationship?: Yes Exam Narrative Exam Narrative: Vitals: Afebrile. Elevated blood pressure otherwise normal vitals and normal room air pulse ox. Const: WDWN elderly female holding forehead. HEENT: NC/AT. Normal facial exam. Eyes: S/P cataract surgery B. EOMI. Neck: Supple. Trachea midline. Lungs: Normal respiratory effort. Lungs are clear. Cor: RRR without murmur/gallop. Good radial pulses. GI: Soft. NT/ND. No guarding or rebound. Neuro: A+O x 3. Normal speech, mentation. Cranial nerves II - XII grossly intact. No gross motor or sensory deficit. Ext: No C/C/E. Skin: Warm and dry without rash.
--- NOTE | 2019-11-22 21:14 | DI.CT_ITS ---
EXAM: CT HEAD WO CLINICAL HISTORY: worsening headaches. TECHNIQUE: Imaging Protocol: Axial computed tomography images with coronal and sagittal reformatted images were created and reviewed COMPARISON: No exams were available for comparison FINDINGS: Ventricles and Extra axial spaces: Normal in size and morphology for the patient's age. Hemorrhage: None. Cerebral parenchyma: Atrophy. White matter changes consistent with small vessel disease. Midline shift: None. Brainstem/Cerebellum: Normal. Calvarium: Normal. Visualized Paranasal sinuses/Mastoids: Clear. IMPRESSION: No acute abnormality. RADIATION DOSE DELIVERED: 688.56mGy.cm Total DLP 688.56mGy.cm Total DLP DATA REPOSITORY: All CT scans at this facility are submitted to the National Radiology Data Registry (NRDR) Dose Index Registry (DIR) with the [employer] (ACR). RADIATION OPTIMIZATION: All CT scans at this facility use at least one of these dose optimization te chniques: automated exposure control; mA and/or kV adjustment per patient size (includes targeted exa ms where dose is matched to clinical indication); or iterative reconstruction.
[2019-11-22] MEDS: Metoclopramide 10 MG/2 ML VIAL 5 MG IVP ×2 (21:22→22:17)
[2019-11-22] MEDS: Normal Saline 500 ML IV (21:28)
[2019-11-22] MEDS: ACETAMINOPHEN 1,000 MG/100 ML BTL 400 MG IVPB (21:28)
--- NOTE | 2019-11-22 21:38 | DI.VRAD_ITS ---
PROCEDURE INFORMATION: Exam: CT Head Without Contrast Exam date and time: 11/22/2019 8:49 PM Age: 83 years old Clinical indication: Pain; Headache not specified TECHNIQUE: Imaging protocol: Computed tomography of the head without contrast. Radiation optimization: All CT scans at this facility use at least one of these dose optimization techniques: automated exposure control; mA and/or kV adjustment per patient size (includes targeted exams where dose is matched to clinical indication); or iterative reconstruction. COMPARISON: CT HEAD WO 09/16/2019 1:58 PM FINDINGS: Brain: There is moderate diffuse cerebral atrophy present, consistent with this patient's age. No hemorrhage. There is moderate diffuse heterogeneity of the white matter attenuation, this change is nonspecific but is likely secondary to chronic ischemia within microvascular distributions. No mass effect. Cerebral ventricles: No ventriculomegaly. Bones/joints: Unremarkable. No acute fracture. Paranasal sinuses: Visualized sinuses are unremarkable. No fluid levels. Mastoid air cells: Visualized mastoid air cells are well aerated. Soft tissues: Unremarkable. IMPRESSION: No acute intracranial abnormality. Dictated and Authenticated by: Gamaliel Ash MD. Ordering:JAM Calhoun MD
[2019-11-22] MEDS: Ketorolac 15 MG/ML VIAL IVP (22:16)
[2019-11-22] MEDS: Prochlorperazine 10 MG/2 ML VIAL 5 MG IVP (23:20)
[2019-11-22] MEDS: Normal Saline Flush 10 ML SYR IVP (23:20)
[2019-11-23] VITALS (19 sets, daily range): BP systolic 149–161; BP diastolic 57–64; PULSE 70–82; RESP 12–18; TEMP 36.6; O2SAT 95–98
== END 2019-11-23 02:17 | disposition home or self-care (01) ==
PROVIDERS: Emergency Provider Emergency Medicine
DX: G43.809 Other migraine, not intractable, without status migrainosus (principal); R11.2 Nausea with vomiting, unspecified
CPT/HCPCS: 96361; 96365; 96375; 96376; 99214; 99284; 70450; 73502; J0131; J0780; J1885; J2765

== ENCOUNTER 2019-12-05 17:59 | Emergency (ER) | payer MEDICARE, OTHER, SELFPAY ==
[2019-12-05] VITALS (28 sets, daily range): BP systolic 147–180; BP diastolic 60–72; PULSE 70–101; RESP 12–24; TEMP 36.6; O2SAT 93–98
--- NOTE | 2019-12-05 18:03 | W.ED.GENAD ---
Discharge Plan Disposition Patient Disposition: HOME Condition: Improving Discharge Details Clinical Impression: Headache disorder Primary Care Provider: Aby Salvador ED Provider: Maggie Cheatham Home Meds and New Rx's Prescriptions: Continued prednisone 5 mg tablet 5 mg PO DAILY Qty: 90 RF: 3 topiramate 25 mg tablet 25 mg PO BID Qty: 60 RF: 2 Hold Instructions: Home Medication placed on hold at Doctor's office metoprolol succinate 100 mg tablet extended release 24 hr 100 mg PO DAILY Qty: 90 RF: 4 cholecalciferol (vitamin D3) [Vitamin D3] 25 mcg (1,000 unit) capsule 1,000 unit PO DAILY Qty: 90 RF: 4 prochlorperazine maleate 5 mg tablet 5 mg PO TID PRN (Reason: headache) Qty: 10 RF: 0 acetaminophen 500 mg Tablet 1,000 mg PO PRN PRNRF: 0 B-complex with vitamin C [Super B Complex-Vitamin C] Tablet 1 tab PO DAILY RF: 0 coenzyme Q10 [CoQ-10] 100 mg Capsule 200 mg PO DAILY RF: 0 aspirin 81 mg Tablet,Delayed Release (Dr/Ec) 81 mg PO DAILY Qty: 100 RF: 0 omeprazole 20 mg capsule,delayed release(DR/EC) 20 mg PO DAILY Qty: 30 RF: 3 potassium chloride 20 mEq tablet,ER particles/crystals 10 meq PO BID RF: 0 Discharge Instructions Instructions: Acute Headache (ED) Additional Instructions: Please continue the medications as previously prescribed. Please follow-up with Dr. Hope soon as possible discuss your recurrent headaches. If you develop fever/chills, neck pain, rash, weakness, sensation changes, uncontrolled pain or other new/worsening symptoms please seek care urgently once again. Please follow-up with your primary care regarding your elevated blood pressure. Referrals: Aby Salvador NP [Primary Care Provider] - Julissa Hope MD [ [facility] STAFF PHYSICIAN] - Medical Decision Making Patient pleasant 84-year-old female presenting today for recurrent headache. Patient has been here multiple times for headaches historically. She reports that this came on and feels the same as her headaches previously. She reports the headache begins between her eyes and radiates up the central aspect of her head. She has been followed by neurology for this. She has an appointment in 6 days and follow-up with neurology. She reports nausea but no vomiting. Denies any neck pain. No rash. No fevers or chills. Denies sudden onset or thunderclap sensation. On exam, patient appears uncomfortable. She is preferring to sit with her eyes closed. She does not have any neurologic deficit on exam. Patient was imaged when she was last here for headache on 11/22/2019. At this time, I do not see any evidence to suggest intracranial bleed, this sounds to be more of the patient's typical headache and will treat as such. Patient is responded well to Compazine historically. Will give IV acetaminophen, Toradol, Benadryl and Compazine. Patient reports modest improvement. Patient is able to ambulate unassisted to the bathroom. Reassessed patient, she is hydrating orally. She does appear more comfortable is now reporting the pain is coming back. With this, I do feel that repeat imaging would be appropriate. Am concerned that her typical migraine cocktail is not working as well as it has historically. CT reviewed by radiologist: FINDINGS: Brain: Age-related involutional changes and chronic microvascular ischemic disease. No evidence for acute transcortical infarct. No mass effect or midline shift. No extra-axial collection. No acute intracranial hemorrhage. Basal cisterns are patent. Cerebral ventricles: No ventriculomegaly. Bones/joints: Unremarkable. No acute fracture. Paranasal sinuses: Visualized sinuses are unremarkable. No fluid levels. Mastoid air cells: Visualized mastoid air cells are well aerated. Orbital cavity: Bilateral cataract surgery. Soft tissues: Unremarkable. IMPRESSION: No hydrocephalus, acute intracranial hemorrhage, or mass effect. Sepsis findings with the patient. 15 mg of Toradol was augmented. Patient feels improved. She has been sleeping. Is requesting discharge. States that while the headache is not completely subsided, she does feel that she is able to go home and sleep. Patient's son, Eusebio [phone], will come to pick her up. Patient has an upcoming appointment with Dr. Hope but does not until next week. I advised that they can call and see if she would be able to get on a wait list. Return precautions were discussed with the patient as well as her son. All the questions or concerns were addressed and they are agreement this plan. HPI General Mode of arrival: ambulatory. Date/Time Provider Initiated Documentation: 12/05/19 18:03. Limitations to Documentation: no limitations. Information obtained by: patient, family (sister), RN notes reviewed and old records reviewed. History of Present Illness 84 year old F presents to the emergency department with the chief complaint of headache, described as severe and similar to prior episodes (patient states it feels the same has her headaches have historically), with intensity rated at 8. Quality is described as aching, and is localized to the head. Patient reports no radiation. Patient started experiencing this day(s) (1) and it has been constant. No relieving factors improve symptom(s), No exacerbating factors reported . Patient notes no other symptoms., headaches and nausea/vomiting (nausea now, no vomiting); denies confusion, chest pain, diaphoresis, fever/chills, loss of appetite, rash, seizure, shortness of breath, syncope and weakness. Patient did receive the following treatments prior to arrival, NSAID and other (tylenol) Related Data Home Medications Medication Instructions Recorded Confirmed B-complex with vitamin C [Super B 1 tab PO DAILY 10/04/18 12/05/19 Complex-Vitamin C] coenzyme Q10 [CoQ-10] 200 mg PO DAILY 10/04/18 12/05/19 acetaminophen 1,000 mg PO PRN PRN 10/10/18 12/05/19 cholecalciferol (vitamin D3) 25 1,000 unit PO DAILY #90 cap 05/26/19 12/05/19 mcg (1,000 unit) capsule aspirin 81 mg PO DAILY #100 tab 09/17/19 12/05/19 omeprazole 20 mg PO DAILY #30 cap 09/17/19 12/05/19 prednisone 5 mg tablet 5 mg PO DAILY #90 tab 10/06/19 12/05/19 topiramate 25 mg tablet 25 mg PO BID #60 tab 11/10/19 12/05/19 metoprolol succinate 100 mg 100 mg PO DAILY #90 tab 11/21/19 12/05/19 tablet,extended release 24 hr potassium chloride 10 meq PO BID 11/22/19 12/05/19 prochlorperazine maleate 5 mg 5 mg PO TID PRN #10 tab 11/27/19 12/05/19 tablet Previous Rx's Medication Instructions Recorded cholecalciferol (vitamin D3) 25 1,000 unit PO DAILY #90 cap 05/26/19 mcg (1,000 unit) capsule aspirin 81 mg PO DAILY #100 tab 09/17/19 omeprazole 20 mg PO DAILY #30 cap 09/17/19 prednisone 5 mg tablet 5 mg PO DAILY #90 tab 10/06/19 topiramate 25 mg tablet 25 mg PO BID #60 tab 11/10/19 metoprolol succinate 100 mg 100 mg PO DAILY #90 tab 11/21/19 tablet,extended release 24 hr prochlorperazine maleate 5 mg 5 mg PO TID PRN #10 tab 11/27/19 tablet Allergies Allergy/AdvReac Type Severity Reaction Status Date / Time carbamazepine AdvReac Severe Confusion Verified 12/05/19 18:15 and disorientation morphine AdvReac Intermediate made my Verified 12/05/19 18:15 chest feel likie I was in a vice General HARSHAD: 2 Review of Systems Constitutional Constitutional: Reports as per HPI, Denies chills, Reports fatigue, Denies fever(s), Denies frequent falls, Reports headache(s), Denies snoring and Denies weakness Eyes Eyes: Reports as per HPI, Denies blurry vision, Denies change in vision and Reports photophobia ENT Ears, Nose, Mouth, and Throat: Denies vertigo, Reports headache(s) and Denies neck pain Cardiovascular Cardiovascular: Reports as per HPI, Denies chest pain, Denies lightheadedness, Denies radiating jaw, neck or arm pain, Denies dyspnea and Denies dyspnea on exertion Respiratory Respiratory: Reports as per HPI, Denies chest congestion, Denies cough, Denies dyspnea, Denies dyspnea on exertion, Denies snoring, Denies stridor and Denies wheezing Gastrointestinal Gastrointestinal: Reports as per HPI, Denies abdominal pain, Denies change in bowel habits, Reports nausea and Denies vomiting Musculoskeletal Musculoskeletal: Reports as per HPI, Denies back pain, Denies myalgias, Denies muscle cramps, Denies neck pain and Denies numbness Integumentary/Breasts Skin/Breast: Reports as per HPI and Denies rash Neurologic Neurologic: Reports as per HPI, Denies abnormal movements, Denies abnormal speech, Denies behavioral changes, Denies confusion, Denies vertigo, Denies frequent falls, Reports headache(s), Denies localized weakness, Denies numbness, Denies sensory deficit and Denies weakness Psychiatric Psychiatric: Denies behavioral changes and Denies confusion Endocrine Endocrine: Reports fatigue Allergic/Immunologic Allergic/Immunologic: Denies wheezing [facility] Medical History Abnormal mammography (03/27/13) Atrial flutter paroxysmal, Atrial fib/flutter, rate controlled, not on anticoagulation. Zio Patch ordered. Celiac disease (06/12/13) Closed head injury Cortical cataract of left eye DVT (deep venous thrombosis) s/p hemorrhoid banding Epiretinal membrane (ERM) of left eye GERD (gastroesophageal reflux disease) History of pelvic fracture Hypokalemia Nuclear sclerotic cataract of left eye Osteoarthritis Osteoporosis Polymyalgia rheumatica (08/14/14) Post concussive syndrome Pyloric ulcer associated with Helicobacter pylori (01/21/05) Spinal stenosis Surgical History Closed right hip fracture (05/03/19) S/P ORIF with cannulated screw fixation on 05/04/2019 Colonoscopy - MAC Hemorrhoidal Banding (04/27/17) Status post cataract extraction and insertion of intraocular lens of left eye (05/02/18) Status post cataract extraction and insertion of intraocular lens of right eye (05/16/18) Status post cholecystectomy Family History Mother No problems noted. 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 Services Pets and animals: No Current gender identity: female What type of physical activity do you participate in: none Jennifer/Yazidism: Mu-Ism Special jennifer needs: No Do you feel safe at home: Yes Do you feel safe in your relationship?: Yes Exam Const General: cooperative, healthy appearing, uncomfortable, no acute distress, well developed and well groomed Nutritional Appearance: average body habitus and well nourished Orientation: alert, awake and oriented x3 HENMT Head: normal to inspection, no palpable skull fracture, normocephalic and atraumatic Ears: hearing grossly normal bilaterally, external ears normal and TM's normal bilaterally General nose exam: external nose normal Mouth: oral mucosae normal and moist mucous membranes Throat: posterior oropharynx normal Eyes General: appearance normal, both eyes and all related structures Alignment and Position: alignment normal Periorbital: periorbital findings normal Eyelids: eyelids normal Sclera: sclerae normal Cornea: corneas normal Pupils: PERRL EOM: EOM intact bilaterally Neck Neck: normal visual inspection, full ROM, no lymphadenopathy and no meningeal signs Resp Effort & Inspection: normal respiratory effort, able to speak in complete sentences and no respiratory distress Auscultation: clear to auscultation bilaterally, no rales, no rhonchi and no wheezes Cardio Rate: regular rate Rhythm: regular rhythm Heart Sounds: S1 normal and S2 normal GI Inspection: normal to inspection and non-distended Palpation: soft, no hepatosplenomegaly, not firm, no guarding, not rigid and nontender Percussion: normal to percussion Auscultation: normal bowel sounds Back/Spine/Pelvis Cervical Spine: normal cervical lordosis and cervical ROM normal Skin General skin exam: no rashes or lesions noted Neuro General: patient alert, patient awake and patient oriented x3 Cranial Nerves: CN's II-XI intact bilaterally Cognition: normal cognition Speech: speech normal Gait: normal gait Motor: muscle tone normal throughout, strength 5/5 throughout, no pronator drift, no movement abnormalities noted and no fasciculations Sensory Exam: no sensory deficits noted Coordination: [id number] test normal and [id number] test normal Extrem General: normal to inspection, capillary refill normal, no pedal edema and no calf tenderness Psych Appearance: grossly normal and well kempt Mental Status: mental status grossly normal Speech and Movement: speech and movement normal
[2019-12-05] MEDS: Prochlorperazine 10 MG/2 ML VIAL IVP (18:35)
[2019-12-05] MEDS: Normal Saline 1,000 ML 500 ML IV (18:35)
[2019-12-05] MEDS: diphenhydrAMINE 50 MG/ML VIAL 25 MG IVP (18:40)
[2019-12-05] MEDS: Ketorolac 15 MG/ML VIAL IVP ×2 (18:50→20:51)
[2019-12-05] MEDS: Normal Saline Flush 10 ML SYR IVP (18:50)
--- NOTE | 2019-12-05 19:45 | DI.CT_ITS ---
EXAM: CT HEAD WO CLINICAL HISTORY: headache. TECHNIQUE: Imaging Protocol: Axial computed tomography images with coronal and sagittal reformatted images were created and reviewed COMPARISON: CT CT HEAD WO from 11/22/2019 FINDINGS: Ventricles and Extra axial spaces: Normal in size and morphology for the patient's age. Hemorrhage: None. Cerebral parenchyma: There are areas of decreased attenuation in the white matter consistent with chr onic small vessel ischemic disease. No acute territorial infarct. Midline shift: None. Brainstem/Cerebellum: Normal. Calvarium: Normal. Visualized Paranasal sinuses/Mastoids: Clear. Soft Tissues: Unremarkable. IMPRESSION: No acute intracranial process. RADIATION DOSE DELIVERED: 722.42mGy.cm Total DLP DATA REPOSITORY: All CT scans at this facility are submitted to the National Radiology Data Registry (NRDR) Dose Index Registry (DIR) with the [employer] (ACR). RADIATION OPTIMIZATION: All CT scans at this facility use at least one of these dose optimization te chniques: automated exposure control; mA and/or kV adjustment per patient size (includes targeted exa ms where dose is matched to clinical indication); or iterative reconstruction.
--- NOTE | 2019-12-07 16:04 | DI.VRAD_ITS ---
PROCEDURE INFORMATION: Exam: CT Head Without Contrast Exam date and time: 12/05/2019 7:55 PM Age: 84 years old Clinical indication: Pain; Headache not specified TECHNIQUE: Imaging protocol: Computed tomography of the head without contrast. Radiation optimization: All CT scans at this facility use at least one of these dose optimization techniques: automated exposure control; mA and/or kV adjustment per patient size (includes targeted exams where dose is matched to clinical indication); or iterative reconstruction. COMPARISON: CT HEAD WO 11/22/2019 9:12 PM FINDINGS: Brain: Age-related involutional changes and chronic microvascular ischemic disease. No evidence for acute transcortical infarct. No mass effect or midline shift. No extra-axial collection. No acute intracranial hemorrhage. Basal cisterns are patent. Cerebral ventricles: No ventriculomegaly. Bones/joints: Unremarkable. No acute fracture. Paranasal sinuses: Visualized sinuses are unremarkable. No fluid levels. Mastoid air cells: Visualized mastoid air cells are well aerated. Orbital cavity: Bilateral cataract surgery. Soft tissues: Unremarkable. IMPRESSION: No hydrocephalus, acute intracranial hemorrhage, or mass effect. Dictated and Authenticated by: Carlos Medina MD. Ordering:COLETTE Serrano MD
== END 2019-12-05 22:15 | disposition home or self-care (01) ==
PROVIDERS: Emergency Provider Physician Assistant
DX: R11.0 Nausea (principal); R51.9 Headache, unspecified
CPT/HCPCS: 96361; 96374; 96375; 99284; 70450; 99285; J0780; J1200; J1885

== ENCOUNTER → 2019-12-11 13:04 | Outpatient (BNVA) | payer MEDICARE, OTHER, SELFPAY | PROVIDERS: Visit Provider Psychiatry & Neurology Neurology | DX: G43.019 Migraine without aura, intractable, without status migrainosus (principal); R41.3 Other amnesia; G44.40 Drug-induced headache, not elsewhere classified, not intractable | CPT/HCPCS: 99215 ==

== ENCOUNTER → 2019-12-25 11:08 | Outpatient (BNVA) | payer MEDICARE, OTHER, SELFPAY | PROVIDERS: Visit Provider Psychiatry & Neurology Neurology | DX: G43.019 Migraine without aura, intractable, without status migrainosus (principal); R41.3 Other amnesia; G44.40 Drug-induced headache, not elsewhere classified, not intractable | CPT/HCPCS: 99213 ==

== ENCOUNTER → 2020-01-24 08:32 | Outpatient (BNVA) | payer MEDICARE, OTHER, SELFPAY | PROVIDERS: Visit Provider Psychiatry & Neurology Neurology | DX: G43.019 Migraine without aura, intractable, without status migrainosus (principal); G44.40 Drug-induced headache, not elsewhere classified, not intractable; R41.3 Other amnesia | CPT/HCPCS: 99213; 99441 ==

== ENCOUNTER 2020-02-01 04:56 | Emergency (ER) | payer MEDICARE, OTHER, SELFPAY ==
[2020-02-01] VITALS (13 sets, daily range): BP systolic 143–175; BP diastolic 58–69; PULSE 74–87; RESP 11–20; TEMP 37.2; O2SAT 95–99
--- NOTE | 2020-02-01 04:47 | W.ED.GENAD ---
Discharge Plan Disposition Patient Disposition: HOME Condition: Stable Discharge Details Clinical Impression: Hemorrhoids, Bright red rectal bleeding Primary Care Provider: Aby Salvador ED Provider: Mikel Mayers Home Meds and New Rx's Prescriptions: Continued prednisone 5 mg tablet 5 mg PO DAILY Qty: 90 RF: 3 metoprolol succinate 100 mg tablet extended release 24 hr 100 mg PO DAILY Qty: 90 RF: 4 gabapentin 300 mg capsule 300 mg PO DIRECTED Qty: 90 RF: 5 cholecalciferol (vitamin D3) [Vitamin D3] 25 mcg (1,000 unit) capsule 1,000 unit PO DAILY Qty: 90 RF: 4 omeprazole 20 mg capsule,delayed release(DR/EC) 20 mg PO DAILY Qty: 30 RF: 3 B-complex with vitamin C [Super B Complex-Vitamin C] Tablet 1 tab PO DAILY RF: 0 coenzyme Q10 [CoQ-10] 100 mg Capsule 200 mg PO DAILY RF: 0 aspirin 81 mg Tablet,Delayed Release (Dr/Ec) 81 mg PO DAILY Qty: 100 RF: 0 Discharge Instructions Additional Instructions: your have hemorrhoids which are likely the cause of your bleeding you should be contacted with an appointment for a general surgery consultation if increased bleeding, pain, weakness or difficulty breathing return to the emergency department Medical Decision Making 84 yo female with hx of chronic headaches, afib not on anticoagulation, pmr, who comes in with ems with blood per rectum. States she had an episode of a bloody bowel movement yesterday that resolved until this morning when she had a stool and what she thought was a blood clot. Denies any abdominal pain, n/v, pain with bowel movements, chest pain or weakness. She does have a mild frontal headache she states is like her chronic headcahes and is not the worst of her life and slowly worsened while in the back of the ambulance. She has a large external hemorrhoid on rectal exam and no current bleeding or blood noted on finger after internal exam. Suspect her hemorrhoid could have been bleeding, will obtian cbc and monitor. pt remains stable without bleeding and hemoglobin stable. She doesn't want to be admitted and would prefer to follow up with general surgery which is reasonable given no bleeding here, hd stable with unremarkable hemoglobin. Will place her on the follow up list to see general surgery mark for her hemorrhoids and earlier bleeding, return precautions Differential Diagnosis Differential Diagnosis: hemorhoid, tumor, diverticula Lab Data Lab results reviewed: Yes I reviewed the patient's lab results. HPI General Mode of arrival: EMS. Date/Time Provider Initiated Documentation: 02/01/20 05:01. Limitations to Documentation: no limitations. Information obtained by: patient. History of Present Illness 84 year old F presents to the emergency department with the chief complaint of bloody bowel movements, described as moderate, Patient started experiencing this hour(s) (24) and it has been intermittent. No relieving factors improve symptom(s), No exacerbating factors reported . Patient did receive the following treatments prior to arrival, none Related Data Home Medications Medication Instructions Recorded Confirmed B-complex with vitamin C [Super B 1 tab PO DAILY 10/04/18 01/24/20 Complex-Vitamin C] coenzyme Q10 [CoQ-10] 200 mg PO DAILY 10/04/18 01/24/20 cholecalciferol (vitamin D3) 25 1,000 unit PO DAILY #90 cap 05/26/19 01/24/20 mcg (1,000 unit) capsule aspirin 81 mg PO DAILY #100 tab 09/17/19 01/24/20 prednisone 5 mg tablet 5 mg PO DAILY #90 tab 10/06/19 01/24/20 metoprolol succinate 100 mg 100 mg PO DAILY #90 tab 11/21/19 01/24/20 tablet,extended release 24 hr omeprazole 20 mg capsule,delayed 20 mg PO DAILY #30 cap 01/15/20 01/24/20 release gabapentin 300 mg capsule 300 mg PO DIRECTED #90 cap 01/24/20 01/24/20 Previous Rx's Medication Instructions Recorded cholecalciferol (vitamin D3) 25 1,000 unit PO DAILY #90 cap 05/26/19 mcg (1,000 unit) capsule aspirin 81 mg PO DAILY #100 tab 09/17/19 prednisone 5 mg tablet 5 mg PO DAILY #90 tab 10/06/19 metoprolol succinate 100 mg 100 mg PO DAILY #90 tab 11/21/19 tablet,extended release 24 hr omeprazole 20 mg capsule,delayed 20 mg PO DAILY #30 cap 01/15/20 release gabapentin 300 mg capsule 300 mg PO DIRECTED #90 cap 01/24/20 Allergies Allergy/AdvReac Type Severity Reaction Status Date / Time carbamazepine AdvReac Severe Confusion Verified 02/01/20 04:56 and disorientation morphine AdvReac Intermediate made my Verified 02/01/20 04:56 chest feel likie I was in a vice General HARSHAD: 2 Review of Systems All systems reviewed & are unremarkable except as noted in HPI and below Constitutional Constitutional: Denies chills, Denies fever(s) and Denies weakness Cardiovascular Cardiovascular: Denies chest pain and Denies dyspnea Respiratory Respiratory: Denies cough and Denies dyspnea Gastrointestinal Gastrointestinal: Denies abdominal pain, Denies nausea and Denies vomiting Neurologic Neurologic: Denies weakness [facility] Medical History Abnormal mammography (03/27/13) Atrial flutter paroxysmal, Atrial fib/flutter, rate controlled, not on anticoagulation. Zio Patch ordered. Celiac disease (06/12/13) Closed head injury Cortical cataract of left eye DVT (deep venous thrombosis) s/p hemorrhoid banding Epiretinal membrane (ERM) of left eye GERD (gastroesophageal reflux disease) History of pelvic fracture Hypokalemia Nuclear sclerotic cataract of left eye Osteoarthritis Osteoporosis Polymyalgia rheumatica (08/14/14) Post concussive syndrome Pyloric ulcer associated with Helicobacter pylori (01/21/05) Spinal stenosis Surgical History Closed right hip fracture (05/03/19) S/P ORIF with cannulated screw fixation on 05/04/2019 Colonoscopy - MAC Hemorrhoidal Banding (04/27/17) Status post cataract extraction and insertion of intraocular lens of left eye (05/02/18) Status post cataract extraction and insertion of intraocular lens of right eye (05/16/18) Status post cholecystectomy Family History Mother No problems noted. Father Neoplasm PANCREATIC Sister Neoplasm BREAST/THYROID Social History Smoking/Tobacco Use Status: Never Smoking risk assessment performed?: Yes Alcohol Intake: never Drug use: Never Substance use type: does not use Counseling given: No Counseling provided: none Household members: none Housing: house Number of Children: 3 number of grandchildren: 5 current occupation: Cleaning Services Pets and animals: No Current gender identity: female What type of physical activity do you participate in: none Jennifer/Adventism: Religion Special jennifer needs: No Do you feel safe at home: Yes Do you feel safe in your relationship?: Yes Exam Const General: no acute distress Orientation: alert HENMT Head: normal to inspection Ears: external ears normal General nose exam: external nose normal Mouth: moist mucous membranes Eyes General: appearance normal, both eyes and all related structures Neck Neck: normal visual inspection Resp Effort & Inspection: normal respiratory effort and able to speak in complete sentences Cardio Rate: regular rate GI Palpation: soft Skin General skin exam: no rashes or lesions noted Neuro General: patient alert and patient oriented x3 Extrem General: normal to inspection Psych Mental Status: mental status grossly normal
[2020-02-01 05:27] LABS: Abs Immature Grans 0.03 10^3/uL (0.0-0.06); Absolute Basophil Count 0.06 10^3/uL (0.0-0.2); Absolute Eosinophil Count 0.48 10^3/uL (0.0-0.7); Absolute Lymphocyte Count 2.28 10^3/uL (1.2-3.4); Absolute Monocyte Count 0.85 10^3/uL (0.1-0.8); Absolute Neutrophil Count 4.44 10^3/uL (1.2-6.7); Basophils % 0.7; Eosinophils % 5.9; HCT 38.2 % (36.0-46.0); HGB 12.6 g/dL (11.2-15.7); Immature Grans % 0.4; MCH 29.7 pg (27.0-33.0); MCV 90.1 fL (80-95); MPV 10.6 fL (8.0-11.0); Monocytes % 10.4; Neutrophils % 54.6; Nucleated RBC 0 %; Platelet Count 240 10^3/uL (130-400); RBC 4.24 10^6/uL (3.93-5.22); RDW 12.1 % (11.7-14.6); RDW-SD 40.1 fL; WBC 8.14 10^3/uL (4.4-10.8)
[2020-02-01] MEDS: Acetaminophen 500 MG TAB 1000 MG PO (05:30)
[2020-02-01 05:41] LABS: ALT 18 U/L (14-59); AST 25 U/L (15-37); Albumin 3.4 g/dL (3.4-5.0); Alkaline Phosphatase 126 U/L (46-116); Anion Gap 6.4 mmol/L (3-11); BUN 17 mg/dL (7-18); Bilirubin, Total 0.4 mg/dL (0.2-1.0); CO2 27.6 mmol/L (21.0-32.0); Calcium 8.6 mg/dL (8.5-10.1); Chloride 100 mmol/L (98-107); Estimated GFR 52.82 (mL/min/1.73m2); Glucose 92 mg/dL (74-106); Magnesium 1.8 mg/dL (1.8-2.4); Potassium 3.6 mmol/L (3.5-5.1); Sodium 134 mmol/L (136-145); Total Protein 6.8 g/dL (6.4-8.2)
[2020-02-01 05:46] LABS: PTT Activated 23.4 sec (21.0-27.5)
--- NOTE | 2020-02-01 07:09 | NUR.NOTE ---
Referral faxed to [facility]Nursing Note:
== END 2020-02-01 07:17 | disposition home or self-care (01) ==
LOC: ER 05:45
PROVIDERS: Emergency Provider Emergency Medicine
DX: K64.4 Residual hemorrhoidal skin tags (principal); K62.5 Hemorrhage of anus and rectum
CPT/HCPCS: 36415; 80053; 86850; 86900; 86901; 99283; 83735; 85025; 85610; 85730

== ENCOUNTER → 2020-02-06 12:43 | Outpatient (BNVA) | payer MEDICARE, OTHER, SELFPAY | PROVIDERS: Visit Provider Surgery | DX: K64.1 Second degree hemorrhoids (principal); K62.5 Hemorrhage of anus and rectum | CPT/HCPCS: 99212; 99213 ==

== ENCOUNTER → 2020-03-06 07:53 | Outpatient (BNVA) | payer MEDICARE, OTHER, SELFPAY | PROVIDERS: Visit Provider Psychiatry & Neurology Neurology | DX: G43.019 Migraine without aura, intractable, without status migrainosus (principal); G89.29 Other chronic pain; R41.3 Other amnesia; G44.40 Drug-induced headache, not elsewhere classified, not intractable | CPT/HCPCS: 99441 ==

== ENCOUNTER → 2020-06-17 13:06 | Outpatient (BNVA) | payer MEDICARE, OTHER, SELFPAY | PROVIDERS: Visit Provider Psychiatry & Neurology Neurology | DX: G43.019 Migraine without aura, intractable, without status migrainosus (principal); R41.3 Other amnesia | CPT/HCPCS: 99214 ==

== ENCOUNTER 2020-07-10 02:47 | Outpatient (CLI) | payer MEDICARE, OTHER, SELFPAY ==
[2020-07-10 12:51] LABS: ESR 12 mm/hr (0-30); HCT 36.1 % (36.0-46.0); HGB 12.1 g/dL (11.2-15.7); MCH 28.8 pg (27.0-33.0); MCHC 33.5 % (32.0-36.0); MPV 10.8 fL (8.0-11.0); Platelet Count 270 10^3/uL (130-400); RDW 13.1 % (11.7-14.6); RDW-SD 41.1 fL; WBC 9.23 10^3/uL (4.4-10.8)
[2020-07-10 13:03] LABS: INR 0.9 (0.9-1.1); Prothrombin Time 9.4 sec (9.3-11.0)
[2020-07-10 13:05] LABS: ALT 24 U/L (14-59); AST 27 U/L (15-37); Albumin 3.5 g/dL (3.4-5.0); Alkaline Phosphatase 117 U/L (46-116); Anion Gap 6.8 mmol/L (3-11); BUN 13 mg/dL (7-18); Bilirubin, Total 0.4 mg/dL (0.2-1.0); CO2 30.2 mmol/L (21.0-32.0); CREATININE 0.8 mg/dL (0.55-1.02); Calcium 8.8 mg/dL (8.5-10.1); Chloride 94 mmol/L (98-107); Glucose 101 mg/dL (74-106); Potassium 5.3 mmol/L (3.5-5.1); Sodium 131 mmol/L (136-145); Total Protein 6.7 g/dL (6.4-8.2)
== END 2020-07-10 02:48 | disposition home or self-care (01) ==
LOC: LOS 02:47
DX: E03.9 Hypothyroidism, unspecified; E87.1 Hypo-osmolality and hyponatremia; R41.89 Other symptoms and signs involving cognitive functions and awareness; R41.3 Other amnesia; R53.1 Weakness; G43.009 Migraine without aura, not intractable, without status migrainosus; K90.0 Celiac disease; D50.9 Iron deficiency anemia, unspecified; H57.12 Ocular pain, left eye; I10 Essential (primary) hypertension
CPT/HCPCS: 36415; 80053; 85027; 85652; 85610; 85730

== ENCOUNTER → 2020-08-19 12:20 | Outpatient (BNVA) | payer MEDICARE, OTHER, SELFPAY | PROVIDERS: Visit Provider Psychiatry & Neurology Neurology | DX: G43.019 Migraine without aura, intractable, without status migrainosus (principal); R41.3 Other amnesia; Z79.899 Other long term (current) drug therapy | CPT/HCPCS: 99213 ==

== ENCOUNTER 2020-12-17 01:44 | Outpatient (CLI) | payer MEDICARE, OTHER, SELFPAY ==
[2020-12-17 12:50] LABS: Anion Gap 10.9 mmol/L (3-11); BUN 13 mg/dL (7-18); CO2 27.1 mmol/L (21.0-32.0); CREATININE 0.8 mg/dL (0.55-1.02); Calcium 9.2 mg/dL (8.5-10.1); Chloride 96 mmol/L (98-107); Glucose 89 mg/dL (74-106); Potassium 4.9 mmol/L (3.5-5.1); Sodium 134 mmol/L (136-145)
== END 2020-12-17 01:45 | disposition home or self-care (01) ==
LOC: LOS 01:44
DX: E87.1 Hypo-osmolality and hyponatremia (principal); E27.40 Unspecified adrenocortical insufficiency; R53.1 Weakness
CPT/HCPCS: 36415; 80048

== ENCOUNTER → 2020-12-24 10:46 | Outpatient (BNVA) | payer MEDICARE, OTHER, SELFPAY | PROVIDERS: Visit Provider Psychiatry & Neurology Neurology | DX: G43.019 Migraine without aura, intractable, without status migrainosus (principal); R41.3 Other amnesia | CPT/HCPCS: 99214 ==

== ENCOUNTER 2021-01-31 01:24 | Outpatient (CLI) | payer MEDICARE, OTHER, SELFPAY ==
[2021-01-31 09:42] LABS: HCT 40.4 % (36.0-46.0); HGB 13.1 g/dL (11.2-15.7); MCH 27.4 pg (27.0-33.0); MCHC 32.4 % (32.0-36.0); MCV 84.5 fL (80-95); MPV 11.6 fL (8.0-11.0); Platelet Count 182 10^3/uL (130-400); RBC 4.78 10^6/uL (3.93-5.22); RDW 12.8 % (11.7-14.6); RDW-SD 39.2 fL; WBC 11.54 10^3/uL (4.4-10.8)
[2021-01-31 09:58] LABS: ALT 20 U/L (14-59); AST 32 U/L (15-37); Albumin 3.4 g/dL (3.4-5.0); Alkaline Phosphatase 135 U/L (46-116); BUN 13 mg/dL (7-18); Bilirubin, Total 0.3 mg/dL (0.2-1.0); CREATININE 0.8 mg/dL (0.55-1.02); Calcium 8.9 mg/dL (8.5-10.1); Chloride 96 mmol/L (98-107); Glucose 93 mg/dL (74-106); Potassium 4.6 mmol/L (3.5-5.1); Sodium 129 mmol/L (136-145); TSH (W/Ref FT4) 2.82 uIU/mL (0.36-3.74); Total Protein 7.2 g/dL (6.4-8.2)
== END 2021-01-31 01:25 | disposition home or self-care (01) ==
LOC: LBO 01:24
PROVIDERS: Visit Provider Psychiatry & Neurology Neurology
DX: G31.84 Mild cognitive impairment of uncertain or unknown etiology (principal)
CPT/HCPCS: 36415; 80053; 85027; 81003; 84443

== ENCOUNTER 2021-02-03 21:14 | Outpatient (REF) | payer MEDICARE, OTHER, SELFPAY ==
[2021-02-03 21:08] LABS: Bilirubin Negative (Negative); Blood Negative (Negative); Clarity Clear (Clear); Glucose Negative (Negative); Ketones Negative (Negative); Leukocyte Esterase Negative (Negative); Nitrite Negative (Negative); Urobilinogen 0.2 EU/dL (Up TO 0.2); pH 7.5 (5-8)
== END 2021-02-03 21:15 | disposition home or self-care (01) ==
LOC: LBN 21:14
PROVIDERS: Visit Provider Psychiatry & Neurology Neurology
DX: G31.84 Mild cognitive impairment of uncertain or unknown etiology (principal)
CPT/HCPCS: 81003

== ENCOUNTER 2021-02-04 01:52 | Outpatient (CLI) | payer MEDICARE, OTHER, SELFPAY ==
--- NOTE | 2021-02-04 09:57 | DI.RAD_ITS ---
Exam(s) XR ANKLE RT COMPLETE EXAM: XR ANKLE RT COMPLETE CLINICAL HISTORY: joyce versus fracture, significant edema. TECHNIQUE: 2D digital imaging was performed of the right ankle. Three images were obtained. AP, la teral and oblique views were obtained. COMPARISON: No exams were available for comparison FINDINGS: BONES: No acute fracture is present. No bony destructive lesion is seen. The bones are osteopenic. JOINTS: The ankle mortise is normally aligned. SOFT TISSUE: There is soft tissue swelling around the ankle. Atherosclerosis is present. IMPRESSION: 1. No acute fracture or dislocation. 2. Diffuse soft tissue swelling. DATA REPOSITORY: RADIATION DOSE DELIVERED:
== END 2021-02-04 02:12 ==
DX: M79.9 Soft tissue disorder, unspecified; R60.9 Edema, unspecified
CPT/HCPCS: 73610

== ENCOUNTER → 2021-02-26 10:07 | Outpatient (BNVA) | payer MEDICARE, OTHER, SELFPAY | PROVIDERS: Visit Provider Psychiatry & Neurology Neurology | DX: G43.019 Migraine without aura, intractable, without status migrainosus (principal); E87.1 Hypo-osmolality and hyponatremia; R41.3 Other amnesia; I10 Essential (primary) hypertension | CPT/HCPCS: 99214 ==

== ENCOUNTER 2021-02-26 22:19 | Inpatient (IN) | payer MEDICARE, OTHER, SELFPAY ==
--- NOTE | 2021-02-26 22:15 | RT.EKG_ITS ---
APPROVED REPORT Exam: Resting ECG Reason for Exam: chest pain Patient Location: E HR:85 bpm ECG Measurements Heart Rate 85 AXIS SC 174 P 51 QRSd 81 QRS 38 QT 366 T 68 QTc 435 Conclusion Sinus rhythm...normal P axis, V-rate 60- 99 Consider left ventricular hypertrophy...(S V1+R V5/V6) >3.25mV no stemi
[2021-02-26 22:19] VITALS: PULSE 89; RESP 18; TEMP 36.6; O2SAT 97
--- NOTE | 2021-02-26 22:30 | DI.RAD_ITS ---
Exam(s) XR PELVIS AP XR FEMUR LT XR FEMUR RT EXAM: XR PELVIS AP and XR femur bilateral CLINICAL HISTORY: fall, pain. TECHNIQUE: 2D digital imaging was performed of the pelvis and bilateral hips. Nine images were obta ined. AP pelvis and lateral views of both hips were obtained. COMPARISON: CR XR HIP RT AP LAT ONLY from 11/22/2019 FINDINGS: BONES: There again seen 3 partially threaded screws transfixing an old right femoral neck fracture. There is a comminuted intertrochanteric fracture of the left femur. There are old healed right infer ior and superior pubic rami fractures. JOINTS: No dislocation present. SOFT TISSUE: Atherosclerosis is present. IMPRESSION: Acute intertrochanteric left femoral fracture. DATA REPOSITORY: RADIATION DOSE DELIVERED:
[2021-02-26 22:33] VITALS: BP 213/80; PULSE 86; O2SAT 97
[2021-02-26 22:35] VITALS: PULSE 86
--- NOTE | 2021-02-26 22:37 | ED.GENADUL_ITS ---
Discharge Plan Disposition Patient Disposition: [facility] INPATIENT Condition: Serious Discharge Details Clinical Impression: Fracture of hip, left, closed, Fall Primary Care Provider: Aby Salvador ED Provider: Lj Erickson Home Meds and New Rx's Prescriptions: No Action Centrum Silver Women 8 mg iron-400 mcg-300 mcg tablet 1 tab PO DAILY RF: 0 omeprazole 20 mg capsule,delayed release(DR/EC) 20 mg PO DAILY Qty: 90 RF: 3 gabapentin 300 mg capsule 300 mg PO DIRECTED Qty: 120 RF: 11 prednisone 5 mg tablet 5 mg PO DAILY Qty: 90 RF: 3 metoprolol succinate 100 mg tablet extended release 24 hr 100 mg PO DAILY Qty: 90 RF: 4 sodium chloride 1 gram tablet 1,000 mg PO DAILY Qty: 90 RF: 3 coenzyme Q10 [CoQ-10] 100 mg Capsule 200 mg PO DAILY RF: 0 aspirin 81 mg Tablet,Delayed Release (Dr/Ec) 81 mg PO DAILY Qty: 100 RF: 0 Medical Decision Making <Yaniv Arzate MD - Last Filed: 02/26/21 23:32> 2245 --85-year-old female here after attempting mechanical fall with injury to bilateral hips, pain left greater than right. No head trauma. No anticoagulants. Hypertensive, patient does have history of elevated BP. Concern for hip fracture. Plan to obtain x-ray of the pelvis and femur bilaterally. I will give fentanyl 100 mcg IV as well as acetaminophen 1000 mg IV for pain. -- ECG nondiagnostic. --Labs reviewed and chronic hyponatremia noted. 2317 --x-ray of the left hip reviewed - fracture present. Rt hip without fracture. Hardware appears intact. Official interpretation pending. I called and spoke with Dr. Basilio - she will admit the patient. cxr pending and official radilogy intepretations pending at time of admission. <Lj Erickson MD - Last Filed: 02/26/21 23:55> Patient signed over to me but x-rays back prior to Dr. Arzate leaving. He called and admitted patient to hospitalist. HPI <Yaniv Arzate MD - Last Filed: 02/26/21 23:32> General Mode of arrival: EMS . Date/Time Provider Initiated Documentation: 02/26/21 22:34 . Limitations to Documentation: no limitations . Information obtained by: patient . HPI Narrative: 85-year-old female with multiple medical problems presents with chief complaint of hip pain. Patient notes she was walking in her home and tripped and fell and landed on her butt and injured her hip. She has pain in bilateral hips but worse on the left. Not able to ambulate secondary to pain. No associated numbness. She did not hit her head. She denies neck pain, headache, chest pain and abdominal pain. She denies loss of consciousness. Fall occurred just prior to arrival. Pain is severe and worse with any movement, constant and persistent since fall. Related Data Home Medications Medication Instructions Recorded Confirmed coenzyme Q10 [CoQ-10] 200 mg PO DAILY 10/04/18 02/26/21 aspirin 81 mg PO DAILY #100 tab 09/17/19 02/26/21 omeprazole 20 mg capsule,delayed 20 mg PO DAILY #90 cap 07/09/20 02/26/21 release prednisone 5 mg tablet 5 mg PO DAILY #90 tab 11/15/20 02/26/21 metoprolol succinate 100 mg 100 mg PO DAILY #90 tab 12/16/20 02/26/21 tablet,extended release 24 hr multivit with 1 tab PO DAILY 12/24/20 02/26/21 yuxqbyzc-arcs-FQ-lutein 8 mg iron-400 mcg-300 mcg tablet sodium chloride 1 gram tablet 1,000 mg PO DAILY #90 tab 02/05/21 02/26/21 gabapentin 300 mg capsule 300 mg PO DIRECTED #120 cap 02/26/21 02/26/21 Previous Rx's Medication Instructions Recorded aspirin 81 mg PO DAILY #100 tab 09/17/19 omeprazole 20 mg capsule,delayed 20 mg PO DAILY #90 cap 07/09/20 release prednisone 5 mg tablet 5 mg PO DAILY #90 tab 11/15/20 metoprolol succinate 100 mg 100 mg PO DAILY #90 tab 12/16/20 tablet,extended release 24 hr sodium chloride 1 gram tablet 1,000 mg PO DAILY #90 tab 02/05/21 gabapentin 300 mg capsule 300 mg PO DIRECTED #120 cap 02/26/21 Allergies Allergy/AdvReac Type Severity Reaction Status Date / Time carbamazepine AdvReac Severe Confusion Verified 02/26/21 10:11 and disorientation morphine AdvReac Intermediate made my Verified 02/26/21 10:11 chest feel likie I was in a vice General Stated Complaint: Orthopedic HARSHAD: 4 Review of Systems <Yaniv Arzate, MD - Last Filed: 02/26/21 23:32> All systems reviewed & are unremarkable except as noted in HPI and below Musculoskeletal Musculoskeletal: Reports as per HPI Neurologic Neurologic: Reports as per HPI PFSH <Yaniv Arzate MD - Last Filed: 02/26/21 23:32> All Active Problems (Updated 02/26/21 @ 23:38 by Yesenia Basilio MD) Discharge planning issues (Acute) DVT prophylaxis (Acute) Fracture of hip, left, closed (Acute) Fall (Acute) Right ankle sprain (Acute) Advance directive indicates patient wish for kx-brf-zubbuduf resuscitation status (Acute) Elevated BP without diagnosis of hypertension (Acute) Memory loss (Acute) Migraine headache without aura (Acute) Generalized weakness (Acute) Spinal stenosis (Acute) Atrial flutter (Chronic) paroxysmal, Atrial fib/flutter, rate controlled, not on anticoagulation. Zio Patch ordered. Premature beats (Chronic) 10/29/10 H/O multiples pvc's Osteoporosis (Chronic) Irritable colon (Chronic) Celiac disease (Chronic 06/12/13) Medical History Abnormal mammography (03/27/13) Adrenal insufficiency Ataxia Chronic headache Closed head injury Cortical cataract of left eye Diverticulosis of colon without diverticulitis DVT (deep venous thrombosis) s/p hemorrhoid banding Epiretinal membrane (ERM) of left eye Epiretinal membrane (ERM) of right eye GERD (gastroesophageal reflux disease) History of pelvic fracture Hypokalemia Hyponatremia Inflammation of Sacroiliac Joint Lumbosacral radiculopathy due to degenerative joint disease of spine Nuclear sclerotic cataract of left eye Osteoarthritis Pancreatic lesion Paroxysmal atrial fibrillation with rapid ventricular response PMR (polymyalgia rheumatica) Polymyalgia rheumatica (08/14/14) Post concussive syndrome Pyloric ulcer associated with Helicobacter pylori (01/21/05) Right lumbar radiculopathy (07/05/15) SIADH (syndrome of inappropriate ADH production) Urine sodium 56. Urine osmolality 460 Will need f/u lab and continued fluid restriction. Cause at this point is idiopathic. SIRS (systemic inflammatory response syndrome) Subconjunctival hemorrhage of left eye Trochanteric bursitis of both hips Surgical History Closed right hip fracture (05/03/19) S/P ORIF with cannulated screw fixation on 05/04/2019 Colonoscopy - MAC Hemorrhoidal Banding (04/27/17) Status post cataract extraction and insertion of intraocular lens of left eye (05/02/18) Status post cataract extraction and insertion of intraocular lens of right eye (05/16/18) Status post cholecystectomy Family History Mother No problems noted. Father Neoplasm PANCREATIC Sister Neoplasm BREAST/THYROID Social History Smoking/Tobacco Use Status: Never Smoking risk assessment performed?: Yes Alcohol Intake: never Drug use: Never Substance use type: does not use Counseling given: No Counseling provided: none Caregiver/Support person: Yes Household members: caregiver Housing: house Number of Children: 3 number of grandchildren: 5 Communication Needs: None Do you need help understanding health information?: Never current occupation: Cleaning Services Pets and animals: No Sexually active: No Do you think of yourself as: straight/heterosexual Current gender identity: female What is your relationship status?: How often do you talk on the phone with friends or family?: three or more times per week How often do you get together with friends or relatives?: three or more times per week How often do you attend episcopalian or faith services?: decline to answer Do you belong to any clubs or organized social groups?: no Panel score (0-1 are the most socially isolated patients): 1 What type of physical activity do you participate in: none Frequency: does not exercise Jennifer/Mormon: Jainism Special jennifer needs: No Seatbelt use: always Helmet use: No Drive intox or ride w/intox 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 Do you feel safe at home: Yes Do you feel safe in your relationship?: Yes Exam <Yaniv Arzate MD - Last Filed: 02/26/21 23:32> Const General: cooperative and no acute distress HENMT Head: normocephalic and atraumatic Mouth: moist mucous membranes Eyes Conjunctivae: normal conjunctivae Sclera: normal sclerae Neck Neck: trachea midline and supple Resp Auscultation: clear to auscultation bilaterally, no rales, no rhonchi and no wheezes Cardio Rate: regular rate and not tachycardic Rhythm: regular rhythm GI Palpation: soft, not firm, no guarding, no masses, not rigid and nontender Back/Spine/Pelvis Cervical Spine: No cervical spinal tenderness and No step off deformity Skin General skin exam: no rashes or lesions noted Neuro General: patient alert, patient awake, patient oriented x3 and tone normal Extrem General: no edema Right lower extremity: hip/thigh Details: tenderness and abnormal ROM Left lower extremity: hip/thigh Details: tenderness and abnormal ROM Other: Left lower extremity appears shortened and externally rotated, tender over her lateral hip as well as femur bilaterally, distal sensation and motor intact, 1+ bilateral DP Psych Appearance: grossly normal Mental Status: mental status grossly normal Speech and Movement: speech and movement normal Course <Yaniv Arzate MD - Last Filed: 02/26/21 23:32> Vital Signs Vital signs: Vital Signs Temperature 36.6 C 02/26/21 22:19 Pulse 89 02/26/21 22:19 Respiratory Rate 18 02/26/21 22:19 Pulse Oximetry 97 02/26/21 22:19 Temperature 36.6 C 02/26/21 22:19 Temperature Source Temporal Artery Scan 02/26/21 22:19 Pulse 89 02/26/21 22:19 Respiratory Rate 18 02/26/21 22:19 Respiratory Effort 02/26/21 22:31 Blood Pressure Position Supine 02/26/21 22:19 Pulse Oximetry 97 02/26/21 22:19 Oxygen Delivery Method Room Air 02/26/21 22:19 Oxygen Flow Rate 0 02/26/21 22:19 Pain Level 8 02/26/21 22:19 Sign Out <Yaniv Arzate MD - Last Filed: 02/26/21 23:32> Sign Out Data: Sign Out Comment: follow-up labs and xray Last updated by Yaniv Arzate MD at 02/26/21 23:04
[2021-02-26 22:46] LABS: HCT 40.4 % (36.0-46.0); HGB 13.3 g/dL (11.2-15.7); MCH 27.9 pg (27.0-33.0); MCHC 32.9 % (32.0-36.0); MCV 84.7 fL (80-95); MPV 10.1 fL (8.0-11.0); Platelet Count 297 10^3/uL (130-400); RBC 4.77 10^6/uL (3.93-5.22); RDW 12.8 % (11.7-14.6); RDW-SD 39.6 fL; WBC 10.18 10^3/uL (4.4-10.8)
[2021-02-26] MEDS: ACETAMINOPHEN 1,000 MG/100 ML BTL 400 MG IVPB (22:59)
[2021-02-26 23:00] LABS: Bilirubin Negative (Negative); Blood Trace-intact (Negative); Clarity Clear (Clear); Glucose Negative (Negative); Ketones Negative (Negative); Leukocyte Esterase Negative (Negative); Nitrite Negative (Negative); Urobilinogen 0.2 EU/dL (Up TO 0.2); pH 7.5 (5-8)
[2021-02-26] MEDS: fentaNYL 100 MCG/2 ML VIAL IVP (23:00)
--- NOTE | 2021-02-26 23:00 | DI.RAD_ITS ---
Exam(s) XR CHEST 1V IN DI DEPT EXAM: XR CHEST 1V IN DI DEPT CLINICAL HISTORY: fall TECHNIQUE: 2D digital imaging was performed of the chest. One image was obtained. An AP view was ob tained. COMPARISON: CR,XR XR CHEST 1V IN DI DEPT from 05/03/2019 FINDINGS: MEDIASTINUM: Normal. HEART: Normal. PULMONARY VASCULATURE: Normal. LUNGS: Clear. PLEURAL SPACE: No pleural effusion or pneumothorax. BONE:Within normal limits for the patient's age. OTHER FINDINGS:Normal. IMPRESSION: No acute pulmonary findings. DATA REPOSITORY: RADIATION DOSE DELIVERED:
[2021-02-26 23:07] LABS: ALT 28 U/L (14-59); AST 27 U/L (15-37); Albumin 3.5 g/dL (3.4-5.0); Alkaline Phosphatase 166 U/L (46-116); Anion Gap 9.4 mmol/L (3-11); BUN 18 mg/dL (7-18); Bilirubin, Total 0.3 mg/dL (0.2-1.0); CO2 28.6 mmol/L (21.0-32.0); CREATININE 1.1 mg/dL (0.55-1.02); Calcium 8.4 mg/dL (8.5-10.1); Chloride 92 mmol/L (98-107); Estimated GFR 47.21 (mL/min/1.73m2); Glucose 122 mg/dL (74-106); Sodium 130 mmol/L (136-145); Total Protein 7.5 g/dL (6.4-8.2); Troponin I < 50 ng/L (<or=60)
[2021-02-26 23:07] LABS: Bacteria Negative HPF (Negative); C & S Indicated? No; Casts Negative LPF (Negative); Crystals Negative HPF (Negative); Epithelial Cells Few HPF (Negative); Mucus Negative (Negative); RBC 0-2 HPF (0-2); WBC 0-2 HPF (0-5)
[2021-02-26] MEDS: Ondansetron 4 MG/2 ML VIAL (23:29)
--- NOTE | 2021-02-26 23:33 | HPE_ITS ---
Date of service: 02/26/21 Time of Service: 23:33 Assessment and Plan Assessment and plan (1) Fracture of hip, left, closed: Status: Acute Assessment and plan: Consult orthopedics. NPO after midnight for an anticipated surgery tomorrow. pain control: scheduled tylenol, fentanyl prn. IS. Bowel regimen. Hussein. Check vitamin D level. Stress dose steroids. Medically cleared to proceed with surgery. (2) Pelvic fracture: Status: Acute Assessment and plan: Orthopedics consult. Anticipate nonoperative management. Pain control, bowel regimen, PT when ok with ortho. (3) Fall: Status: Acute Assessment and plan: Mechanical, per description. Will need PT eval and likely disposition to SNF. (4) SIADH (syndrome of inappropriate ADH production): Assessment and plan: Continue salt tablets (5) Paroxysmal atrial fibrillation with rapid ventricular response: Assessment and plan: Not on anticoagulation. Last echo in 09/2019: LVEF 60%, nml wall motion, RVSP 22.4 mmhg, moderate aortic regurg, mild mitral regurg. Patient is not on tele as the description of the fall appears to be mechanical. (6) Adrenal insufficiency: Assessment and plan: Steroid dependent due to PMR. Will provide stress dose steroids in light of anticipated surgery. (7) Hypertension: Status: Chronic Assessment and plan: BP currently elevated due to pain, although I see that on the last Neurology appointment, BP was elevated also. Continue home toprol XL - consider increase in dose and addition of a 2nd agent. Control pain. (8) DVT prophylaxis: Status: Acute Assessment and plan: SCDs in anticipation of surgery (9) Discharge planning issues: Status: Acute Assessment and plan: DNR/DNI as confirmed in conversation with the patient as well as documented by PCP and per COLST form 12/26/20. History of Present Illness History of Present Illness Chief Complaint: Bilateral hip pain after a fall Narrative: Ms Rodriguez is an 85 year old female with PMHx of paroxysmal Afib/ flutter, not on anticoagluation, hypertension, SIADH, adrenal insufficiency due to chronic steroid use for PMR, osteoporosis, Alzheimer's dementia (moderate), who was brought to [facility] ED by ambulance after sustaining a mechanial fall at home, landing on her buttocks. The patient cannot tell me the circumstances of the fall at the time of my exam other than that it happened at 6 pm, but to the ED provider she had stated that she had tripped while walking down the hallway. She reports LLE pain and her XR shows a L hip fx. She also has age-indeterminate r-sided superior and inferior pubic ramus fractures, but the patient does not report discomfort in this area. Hospitalist admission was requested with plans for the OR tomorrow. Review of Systems All systems reviewed & are unremarkable except as noted in HPI and below PFSH All Active Problems (Updated 02/27/21 @ 01:22 by Yesenia Basilio MD) Hypertension (Chronic) Pelvic fracture (Acute) Discharge planning issues (Acute) DVT prophylaxis (Acute) Fracture of hip, left, closed (Acute) Fall (Acute) Right ankle sprain (Acute) Advance directive indicates patient wish for ro-vta-gksekitt resuscitation status (Acute) Elevated BP without diagnosis of hypertension (Acute) Memory loss (Acute) Migraine headache without aura (Acute) Generalized weakness (Acute) Spinal stenosis (Acute) Atrial flutter (Chronic) paroxysmal, Atrial fib/flutter, rate controlled, not on anticoagulation. Zio Patch ordered. Premature beats (Chronic) 10/29/10 H/O multiples pvc's Osteoporosis (Chronic) Irritable colon (Chronic) Celiac disease (Chronic 06/12/13) Medical History Abnormal mammography (03/27/13) Adrenal insufficiency Ataxia Chronic headache Closed head injury Cortical cataract of left eye Diverticulosis of colon without diverticulitis DVT (deep venous thrombosis) s/p hemorrhoid banding Epiretinal membrane (ERM) of left eye Epiretinal membrane (ERM) of right eye GERD (gastroesophageal reflux disease) History of pelvic fracture Hypokalemia Hyponatremia Inflammation of Sacroiliac Joint Lumbosacral radiculopathy due to degenerative joint disease of spine Nuclear sclerotic cataract of left eye Osteoarthritis Pancreatic lesion Paroxysmal atrial fibrillation with rapid ventricular response PMR (polymyalgia rheumatica) Polymyalgia rheumatica (08/14/14) Post concussive syndrome Pyloric ulcer associated with Helicobacter pylori (01/21/05) Right lumbar radiculopathy (07/05/15) SIADH (syndrome of inappropriate ADH production) Urine sodium 56. Urine osmolality 460 Will need f/u lab and continued fluid restriction. Cause at this point is idiopathic. SIRS (systemic inflammatory response syndrome) Subconjunctival hemorrhage of left eye Trochanteric bursitis of both hips Surgical History Closed right hip fracture (05/03/19) S/P ORIF with cannulated screw fixation on 05/04/2019 Colonoscopy - MAC Hemorrhoidal Banding (04/27/17) Status post cataract extraction and insertion of intraocular lens of left eye (05/02/18) Status post cataract extraction and insertion of intraocular lens of right eye (05/16/18) Status post cholecystectomy Family History Mother No problems noted. Father Neoplasm PANCREATIC Sister Neoplasm BREAST/THYROID Social History Smoking/Tobacco Use Status: Never Smoking risk assessment performed?: Yes Alcohol Intake: never Drug use: Never Substance use type: does not use Counseling given: No Counseling provided: none Caregiver/Support person: Yes Household members: caregiver Housing: house Number of Children: 3 number of grandchildren: 5 Communication Needs: None Do you need help understanding health information?: Never current occupation: Cleaning Services Pets and animals: No Sexually active: No Do you think of yourself as: straight/heterosexual Current gender identity: female What is your relationship status?: How often do you talk on the phone with friends or family?: three or more times per week How often do you get together with friends or relatives?: three or more times per week How often do you attend christian or rastafari services?: decline to answer Do you belong to any clubs or organized social groups?: no Panel score (0-1 are the most socially isolated patients): 1 What type of physical activity do you participate in: none Frequency: does not exercise Jennifer/Taoist: Anglican Special jennifer needs: No Seatbelt use: always Helmet use: No Drive intox or ride w/intox dump truck driver off highway: No Do you feel safe at home: Yes Do you feel safe in your relationship?: Yes Meds Allergies and Home Medications Allergies Allergy/AdvReac Type Severity Reaction Status Date / Time carbamazepine AdvReac Severe Confusion Verified 02/26/21 10:11 and disorientation morphine AdvReac Intermediate made my Verified 02/26/21 10:11 chest feel likie I was in a vice Home Medications Medication Instructions Recorded Confirmed Type coenzyme Q10 [CoQ-10] 200 mg PO DAILY 10/04/18 02/26/21 History aspirin 81 mg PO DAILY #100 tab 09/17/19 02/26/21 Rx omeprazole 20 mg capsule,delayed 20 mg PO DAILY #90 cap 07/09/20 02/26/21 Rx release prednisone 5 mg tablet 5 mg PO DAILY #90 tab 11/15/20 02/26/21 Rx metoprolol succinate 100 mg 100 mg PO DAILY #90 tab 12/16/20 02/26/21 Rx tablet,extended release 24 hr multivit with 1 tab PO DAILY 12/24/20 02/26/21 History wktjpjmr-uzlz-YS-lutein 8 mg iron-400 mcg-300 mcg tablet sodium chloride 1 gram tablet 1,000 mg PO DAILY #90 tab 02/05/21 02/26/21 Rx gabapentin 300 mg capsule 300 mg PO DIRECTED #120 cap 02/26/21 02/26/21 Rx Exam Narrative Exam Narrative: General: Pleasant elderly female who is visibly uncomfortable, A&Ox3, though does not know exact date Neurological: A&Ox3, no focal deficits, forgetful and cannot tell me details of her medical history Psychiatric: appropriate affect, cooperative Skin: Visible skin intact HEENT: Atraumatic, normocephalic, EOMI, dry MM, clear oropharynx, no submandibular or cervical lymphadenopathy, no goiter or JVD Cardiovascular: RRR, no m/r/g Lungs: CTAB anteriorly Gastrointestinal: soft, nontender, nondistended Genitourinary: has a hussein catheter Extremities: no edema BLE's, shortened externally rotated LLE, no c/c, 1+ pedal pulses B Results Imaging Additional studies: EKG: NSR, HR 85, no acute ischemia XR pelvis: 1. Left-sided intertrochanteric hip fracture demonstrating mild angulation. 2. Age-indeterminate right-sided superior and inferior pubic ramus fractures. XR L femur: Left-sided intertrochanteric hip fracture. XR chest: No acute findings. XR R femur: No acute findings Labs Result diagrams: 02/26/21 22:38 02/26/21 22:38 Labs: Laboratory Results - last 24 hr 02/26/21 02/26/21 02/26/21 22:38 22:38 22:55 WBC 10.18 RBC 4.77 Hgb 13.3 Hct 40.4 MCV 84.7 MCH 27.9 MCHC 32.9 RDW 12.8 Plt Count 297 D MPV 10.1 Sodium 130 L Potassium 4.0 Chloride 92 L Carbon Dioxide 28.6 Anion Gap 9.4 BUN 18 Creatinine 1.1 H Estimated GFR/1.73 m2 47.21 Glucose 122 H Calcium 8.4 L Total Bilirubin 0.3 AST 27 ALT 28 Alkaline Phosphatase 166 H Troponin I < 50 Total Protein 7.5 Albumin 3.5 Urine Color Yellow Urine Clarity Clear Urine pH 7.5 Ur Specific [place] 1.020 Urine Protein Negative Urine Ketones Negative Urine Blood Trace-intact H Urine Nitrite Negative Urine Bilirubin Negative Urine Urobilinogen 0.2 Ur Leukocyte Esterase Negative Urine RBC 0-2 Urine WBC 0-2 Ur Epithelial Cells Few Urine Crystals Negative Urine Bacteria Negative Urine Casts Negative Urine Mucus Negative Ur Culture Indicated? No Urine Glucose Negative Patient ABO/Rh Antibody Screen 02/26/21 22:57 WBC RBC Hgb Hct MCV MCH MCHC RDW Plt Count MPV Sodium Potassium Chloride Carbon Dioxide Anion Gap BUN Creatinine Estimated GFR/1.73 m2 Glucose Calcium Total Bilirubin AST ALT Alkaline Phosphatase Troponin I Total Protein Albumin Urine Color Urine Clarity Urine pH Ur Specific [place] Urine Protein Urine Ketones Urine Blood Urine Nitrite Urine Bilirubin Urine Urobilinogen Ur Leukocyte Esterase Urine RBC Urine WBC Ur Epithelial Cells Urine Crystals Urine Bacteria Urine Casts Urine Mucus Ur Culture Indicated? Urine Glucose Patient ABO/Rh O Positive Antibody Screen NEGATIVE Last Vital Signs Temp 36.6 C 02/26/21 22:19 Pulse 86 02/26/21 22:33 Resp 18 02/26/21 22:19 BP 213/80 H 02/26/21 22:33 Pulse Ox 97 02/26/21 22:33
[2021-02-26 23:48] LABS: Source Nasal/Nares
--- NOTE | 2021-02-26 23:55 | DI.VRAD_ITS ---
PROCEDURE INFORMATION: Exam: XR Pelvis Exam date and time: 02/26/2021 10:37 PM Age: 85 years old Clinical indication: Other: Fall TECHNIQUE: Imaging protocol: XR pelvis. Views: 1 or 2 view. COMPARISON: CT ABDOMEN PELVIS WO 09/14/2019 12:03 PM FINDINGS: Bones/joints: Left-sided intertrochanteric hip fracture demonstrating mild angulation. Age-indeterminate right-sided superior and inferior pubic ramus fractures. Soft tissues: Unremarkable. IMPRESSION: 1. Left-sided intertrochanteric hip fracture demonstrating mild angulation. 2. Age-indeterminate right-sided superior and inferior pubic ramus fractures. Dictated and Authenticated by: Manohar Garcia MD. Ordering:LENY Purvis MD
--- NOTE | 2021-02-26 23:57 | DI.VRAD_ITS ---
PROCEDURE INFORMATION: Exam: XR Left Femur Exam date and time: 02/26/2021 10:37 PM Age: 85 years old Clinical indication: Other: Fall TECHNIQUE: Imaging protocol: XR Left femur. Views: 2 views. COMPARISON: CR XR PELVIS AP 02/26/2021 11:16 PM FINDINGS: Bones/joints: Left-sided intertrochanteric hip fracture. Soft tissues: Unremarkable. IMPRESSION: Left-sided intertrochanteric hip fracture. Dictated and Authenticated by: Manohar Garcia MD. Ordering:LENY Purvis MD
--- NOTE | 2021-02-26 23:58 | DI.VRAD_ITS ---
PROCEDURE INFORMATION: Exam: XR Chest Exam date and time: 02/26/2021 11:15 PM Age: 85 years old Clinical indication: Other: Fall TECHNIQUE: Imaging protocol: XR of the chest. Views: 1 view. COMPARISON: CR XR CHEST 2V PA LATERAL 09/14/2019 10:08 AM FINDINGS: Lungs: Unremarkable. No consolidation. Pleural spaces: Unremarkable. No pleural effusion. No pneumothorax. Heart/Mediastinum: Unremarkable. No cardiomegaly. Bones/joints: Unremarkable. IMPRESSION: No acute findings. Dictated and Authenticated by: Manohar Garcia MD. Ordering:JAM Calhoun MD
[2021-02-27] VITALS (13 sets, daily range): BP systolic 146–195; BP diastolic 58–81; PULSE 64–79; RESP 11–20; TEMP 35.6–36.3; O2SAT 93–97; BMI 24.5
--- NOTE | 2021-02-27 | DI.VRAD_ITS ---
PROCEDURE INFORMATION: Exam: XR Right Femur Exam date and time: 02/26/2021 10:37 PM Age: 85 years old Clinical indication: Other: Fall TECHNIQUE: Imaging protocol: XR Right femur. Views: 2 views. COMPARISON: CT LOWER EXTREMITY RT WO 05/03/2019 9:21 PM FINDINGS: Bones/joints: Right femoral neck screws in place Soft tissues: Unremarkable. IMPRESSION: No acute findings Dictated and Authenticated by: Manohar Garcia MD. Ordering:LENY Purvis MD
[2021-02-27] MEDS: DEXTROSE 5%-0.9% SALINE 1,000 ML 100 ML IV ×2 (00:50→10:56)
[2021-02-27] MEDS: fentaNYL 100 MCG/2 ML VIAL 50 MCG IVP (01:00)
[2021-02-27] MEDS: Hydrocortisone SOD SUC. 100 MG VIAL IVP (01:16)
[2021-02-27] MEDS: HYDROmorphone 2 MG/ML VIAL 0.5 MG IVP ×2 (01:40→15:29)
[2021-02-27] MEDS: Ondansetron 4 MG/2 ML VIAL IVP (01:43)
[2021-02-27] MEDS: ACETAMINOPHEN 1,000 MG/100 ML BTL 400 MG IVPB ×3 (05:57→21:46)
[2021-02-27 06:49] LABS: Abs Immature Grans 0.08 10^3/uL (0.0-0.06); Absolute Basophil Count 0.02 10^3/uL (0.0-0.2); Absolute Lymphocyte Count 0.54 10^3/uL (1.2-3.4); Absolute Neutrophil Count 13.94 10^3/uL (1.2-6.7); Basophils % 0.1; Eosinophils % 0.1; HCT 38.5 % (36.0-46.0); HGB 12.5 g/dL (11.2-15.7); Immature Grans % 0.5; Lymphocytes % 3.5; MCH 27.7 pg (27.0-33.0); MCHC 32.5 % (32.0-36.0); MCV 85.4 fL (80-95); MPV 10.3 fL (8.0-11.0); Monocytes % 5.8; Nucleated RBC 0 %; Platelet Count 253 10^3/uL (130-400); RBC 4.51 10^6/uL (3.93-5.22); RDW 12.8 % (11.7-14.6); RDW-SD 39.9 fL; WBC 15.49 10^3/uL (4.4-10.8)
[2021-02-27 06:54] LABS: Absolute Eosinophil Count 0.02 10^3/uL (0.0-0.7)
[2021-02-27 06:59] LABS: Anion Gap 5.4 mmol/L (3-11); BUN 14 mg/dL (7-18); CO2 27.6 mmol/L (21.0-32.0); CREATININE 0.9 mg/dL (0.55-1.02); Calcium 8.4 mg/dL (8.5-10.1); Chloride 94 mmol/L (98-107); Estimated GFR 59.51 (mL/min/1.73m2); Glucose 137 mg/dL (74-106); Magnesium 1.9 mg/dL (1.8-2.4); Potassium 4.3 mmol/L (3.5-5.1); Sodium 127 mmol/L (136-145)
[2021-02-27 07:06] LABS: Prothrombin Time 9.9 sec (9.3-11.0)
[2021-02-27 07:38] LABS: COVID-19 PCR Negative (Negative)
[2021-02-27 08:15] LABS: Vitamin D 25 Total 43.6 ng/mL (30-100)
[2021-02-27] MEDS: Hydrocortisone SOD SUC. 100 MG VIAL 50 MG IVP ×2 (08:43→15:29)
[2021-02-27] MEDS: Aspirin E.C. 81 MG TABEC PO (08:43)
[2021-02-27] MEDS: Metoprolol CR 100 MG TABCR PO (08:43)
[2021-02-27] MEDS: Gabapentin 300 MG CAP PO (08:43)
[2021-02-27] MEDS: Omeprazole 20 MG CAPCR PO (08:43)
[2021-02-27] MEDS: Multivitamin TAB 1 TAB PO (08:44)
--- NOTE | 2021-02-27 11:45 | DI.RAD_ITS ---
Exam(s) XR HIP LT IN OR EXAM: XR HIP LT IN OR CLINICAL HISTORY: FRACTURED LEFT HIP TECHNIQUE: 2D and realtime digital imaging was performed. CONTRAST MATERIAL: Refer to procedure report. COMPARISON: CR,XR XR FEMUR RT from 02/26/2021 CR,XR XR FEMUR LT from 02/26/2021 FINDINGS: Fluoroscopy was provided for Dr. Freire during the performance of an open reduction and internal fixa tion of the left intertrochanteric fracture. Please refer to the procedure report for complete detai ls. Frandyr=12.03 mGy IMPRESSION: RADIATION DOSE DELIVERED:
--- NOTE | 2021-02-27 11:54 | W.ANESPRE ---
General Info Date of Service Date Performed: 02/27/21 Height: 5 ft Weight: 57 kg Body Mass Index (BMI): 24.5 Surgical Procedure: Operation Date: 02/27/21 10:45 Proposed Procedures Side Surgeon p Hip TFNA Left Sagar Freire MD Meds Allergies and Home Medications Allergies Allergy/AdvReac Type Severity Reaction Status Date / Time carbamazepine AdvReac Severe Confusion Verified 02/26/21 10:11 and disorientation morphine AdvReac Intermediate made my Verified 02/26/21 10:11 chest feel likie I was in a vice Home Medication Medication Instructions Recorded coenzyme Q10 [CoQ-10] 200 mg PO DAILY 10/04/18 aspirin 81 mg PO DAILY #100 tab 09/17/19 omeprazole 20 mg capsule,delayed 20 mg PO DAILY #90 cap 07/09/20 release prednisone 5 mg tablet 5 mg PO DAILY #90 tab 11/15/20 metoprolol succinate 100 mg 100 mg PO DAILY #90 tab 12/16/20 tablet,extended release 24 hr multivit with 1 tab PO DAILY 12/24/20 gufguzat-rnca-NK-lutein 8 mg iron-400 mcg-300 mcg tablet sodium chloride 1 gram tablet 1,000 mg PO DAILY #90 tab 02/05/21 gabapentin 300 mg capsule 300 mg PO DIRECTED #120 cap 02/26/21 Current Visit Medications: Current Medications Generic Name Dose Route Start Last Admin Trade Name Freq PRN Reason Stop Dose Admin Al Hydrox/Mg Hydrox/Simethicone 30 ml 02/26/21 23:28 Mylanta Suspension 30 Ml Cup PO Q2H PRN PRN Aspirin 81 mg 02/27/21 08:30 02/27/21 08:43 Aspirin E.C. 81 Mg Tabec PO 81 mg DAILY SHANEKA Administration Dimethicone/Zinc Oxide 0 gm 02/26/21 23:23 Katy Protect Cream 142 Gm Tube TP PRN PRN Docusate Sodium 100 mg 02/27/21 20:00 Docusate Sodium 100 Mg Cap PO BID SHANEKA Gabapentin 300 mg 02/27/21 08:30 02/27/21 08:43 Gabapentin 300 Mg Cap PO 300 mg DAILY SHANEKA Administration Gabapentin 600 mg 02/27/21 22:00 Gabapentin 300 Mg Cap PO HS SHANEKA Gabapentin 300 mg 02/27/21 00:52 Gabapentin 300 Mg Cap PO DAILY PRN PRN Headache Hydrocortisone 50 mg 02/27/21 08:00 02/27/21 08:43 Hydrocortisone Sod Suc. 100 Mg Vial IVP 50 mg Q8H SHANEKA Administration Hydromorphone HCl 0.5 mg 02/27/21 01:25 02/27/21 01:40 Hydromorphone 2 Mg/Ml Vial IVP 0.5 mg Q4H PRN PRN Administration Sodium Chloride 500 mls @ 0 mls/hr 02/26/21 23:23 Saline 500ml Bag IV PRN PRN As Directed Dextrose/Sodium Chloride 1,000 mls @ 100 mls/hr 02/26/21 23:30 02/27/21 10:56 Dextrose 5%-Ns IV 100 mls/hr INFUSION SHANEKA Administration Acetaminophen 1,000 mg in 100 mls @ 400 mls/hr 02/27/21 06:00 02/27/21 05:57 Ofirmev IVPB 400 mls/hr Q8H SHANEKA Administration Promethazine HCl 12.5 mg/ 50.5 mls @ 200 mls/hr 02/27/21 02:11 02/27/21 02:27 Sodium Chloride IVPB 200 mls/hr Q6H PRN PRN Administration IV Miscellaneous Supplies 1 each 02/26/21 23:30 Iv Access IV DIRECTED SHANEKA Magnesium Hydroxide 30 ml 02/26/21 23:28 Milk Of Magnesia 30 Ml Cup PO DAILY PRN PRN Metoprolol Succinate 100 mg 02/27/21 08:30 02/27/21 08:43 Metoprolol Cr 100 Mg Tabcr PO 100 mg DAILY SHANEKA Administration Multivitamins 1 tab 02/27/21 08:30 02/27/21 08:44 Multivitamin Tab PO 1 tab DAILY SHANEKA Administration Omeprazole 20 mg 02/27/21 08:30 02/27/21 08:43 Omeprazole 20 Mg Capcr PO 20 mg DAILY@0730 SHANEKA Administration Ondansetron HCl 4 mg 02/26/21 23:28 02/27/21 01:43 Ondansetron 4 Mg/2 Ml Vial IVP 4 mg Q6H PRN PRN Administration Potassium Chloride/Sodium Chloride 1 tab 02/27/21 09:20 Salt Supplement (Buffered) Tab PO BID SHANEKA Sodium Chloride 0 ml 02/26/21 23:23 Normal Saline Flush 10 Ml Syr IVP PRN PRN PFSH Active Problems Active Problems: Problem Status Onset Code Hypertension I10 Pelvic fracture S32.9XXA Discharge planning issues Z02.9 DVT prophylaxis Z29.9 Fracture of hip, left, closed S72.002A Fall W19.XXXA Right ankle sprain S93.401A Advance directive indicates patient wish for [id number] resuscitation status Z66 Elevated BP without diagnosis of hypertension R03.0 Memory loss R41.3 Migraine headache without aura G43.009 Generalized weakness R53.1 Spinal stenosis M48.00 Atrial flutter I48.92 Premature beats I49.49 Osteoporosis M81.0 Irritable colon K58.9 Celiac disease 06/12/13 K90.0 Medical History Medical History Abnormal mammography (03/27/13) Adrenal insufficiency Ataxia Chronic headache Closed head injury Cortical cataract of left eye Diverticulosis of colon without diverticulitis DVT (deep venous thrombosis) s/p hemorrhoid banding Epiretinal membrane (ERM) of left eye Epiretinal membrane (ERM) of right eye GERD (gastroesophageal reflux disease) History of pelvic fracture Hypokalemia Hyponatremia Inflammation of Sacroiliac Joint Lumbosacral radiculopathy due to degenerative joint disease of spine Nuclear sclerotic cataract of left eye Osteoarthritis Pancreatic lesion Paroxysmal atrial fibrillation with rapid ventricular response PMR (polymyalgia rheumatica) Polymyalgia rheumatica (08/14/14) Post concussive syndrome Pyloric ulcer associated with Helicobacter pylori (01/21/05) Right lumbar radiculopathy (07/05/15) SIADH (syndrome of inappropriate ADH production) Urine sodium 56. Urine osmolality 460 Will need f/u lab and continued fluid restriction. Cause at this point is idiopathic. SIRS (systemic inflammatory response syndrome) Subconjunctival hemorrhage of left eye Trochanteric bursitis of both hips Surgical History Surgical History Closed right hip fracture (05/03/19) S/P ORIF with cannulated screw fixation on 05/04/2019 Colonoscopy - MAC Hemorrhoidal Banding (04/27/17) Status post cataract extraction and insertion of intraocular lens of left eye (05/02/18) Status post cataract extraction and insertion of intraocular lens of right eye (05/16/18) Status post cholecystectomy Tobacco Smoking/Tobacco Use Status: Never Passive smoking exposure: Yes Alcohol Alcohol Intake: never Substance Use Substance use: Never Substance use type: does not use Counseling given: No Counseling provided: none Vital Signs and Lab Results Vital Signs Most Recent Vital Signs in EMR: Most Recent Vital Signs Temp Pulse Resp BP Pulse Ox 36 C L 66 12 150/76 H 96 02/27/21 11:43 02/27/21 11:43 02/27/21 11:43 02/27/21 11:43 02/27/21 11:43 Lab Results Result Diagrams: 02/27/21 06:15 02/27/21 06:15 Blood Type / Crossmatch: Patient ABO/Rh O Positive 02/26/21 22:57 02/26/21 Antibody Screen NEGATIVE 02/26/21 22:57 02/26/21 Complete Blood Count: White Blood Count 15.49 10^3/uL (4.4-10.8) H 02/27/21 06:15 02/27/21 Red Blood Count 4.51 10^6/uL (3.93-5.22) 02/27/21 06:15 02/27/21 Hemoglobin 12.5 g/dL (11.2-15.7) 02/27/21 06:15 02/27/21 Hematocrit 38.5 % (36.0-46.0) 02/27/21 06:15 02/27/21 Platelet Count 253 10^3/uL (130-400) 02/27/21 06:15 02/27/21 Complete Metabolic Panel: Sodium Level 127 mmol/L (136-145) L 02/27/21 06:15 02/27/21 Potassium Level 4.3 mmol/L (3.5-5.1) 02/27/21 06:15 02/27/21 Chloride Level 94 mmol/L (98-107) L 02/27/21 06:15 02/27/21 Carbon Dioxide Level 27.6 mmol/L (21.0-32.0) 02/27/21 06:15 02/27/21 Blood Urea Nitrogen 14 mg/dL (7-18) 02/27/21 06:15 02/27/21 Creatinine 0.9 mg/dL (0.55-1.02) 02/27/21 06:15 02/27/21 Estimated GFR/1.73 m2 59.51 (mL/min/1.73m2) 02/27/21 06:15 02/27/21 Magnesium Level 1.9 mg/dL (1.8-2.4) 02/27/21 06:15 02/27/21 Calcium Level 8.4 mg/dL (8.5-10.1) L 02/27/21 06:15 02/27/21 Albumin 3.5 g/dL (3.4-5.0) 02/26/21 22:38 02/26/21 Glucose Level 137 mg/dL (74-106) H 02/27/21 06:15 02/27/21 Liver Function Panel: Alanine Aminotransferase (ALT/SGPT) 28 U/L (14-59) 02/26/21 22:38 02/26/21 Aspartate Amino Transf (AST/SGOT) 27 U/L (15-37) 02/26/21 22:38 02/26/21 Coagulation Panel: INR International Normalized Ratio 1.0 (0.9-1.1) 02/27/21 06:15 02/27/21 Prothrombin Time 9.9 sec (9.3-11.0) 02/27/21 06:15 02/27/21 Cardiac Panel: Troponin I < 50 ng/L (<or=60) 02/26/21 22:38 02/26/21 Arterial Blood Gas: No Data to Display Venous Blood Gas: No Data to Display Pancreas Panel: No Data to Display Thyroid Panel: Thyroid Stimulating Hormone (TSH) 2.82 uIU/mL (0.36-3.74) 01/31/21 09:15 01/31/21 Infectious Disease: Coronavirus (COVID-19)(PCR) Negative (Negative) 02/26/21 23:42 02/26/21 Coronavirus 2019 Source Nasal/Nares 02/26/21 23:42 02/26/21 Blood Cultures: No Data to Display Toxicology Panel: No Data to Display Imaging and Studies Imaging and Studies Study information below may be from another EMR and interpreted by another provider. Please see original notes in EMR for more complete details. EKG Summary: 02/26/2021: Conclusion Sinus rhythm...normal P axis, V-rate 60- 99 Consider left ventricular hypertrophy...(S V1+R V5/V6) >3.25mV Echocardiogram Summary: 09/27/2019: Conclusion Left Ventricle : The left ventricle is normal size. The left ventricular systolic function is normal. The left ventricular ejection fraction is within the normal range. There is normal left ventricular wall thickness. There is normal LV segmental wall motion. The left ventricular diastolic function is normal. LVEF is 60%. Right Ventricle : The right ventricle is normal size. The right ventricular systolic function is low normal. The RVSP is 22.4 mmHg. Atria : The left atrium size is normal. The right atrium size is normal. Aortic Valve : The aortic valve is normal in structure. There is no aortic valvular stenosis. Moderate aortic regurgitation. Mitral Valve : Moderate mitral annular calcification. No evidence of mitral valve stenosis. Mild mitral regurgitation. Great Vessels : Aortic root is mildly dilated. IVC is normal in size and collapses >50% with inspiration. The ascending aorta is mildly dilated. Aortic arch is normal in caliber. Compared to prior study from 2014 the patient's aortic insufficiency has worsened from mild to moderate. Anesthesia Assessment and Plan Anesthesia History Personal History: No History of Anesthesia Complications Family History: No Family History of Anesthesia Complications Exercise Tolerance Exercise Tolerance: Metabolic Equivalents<4 Cardiac & Pulmonary Exam Cardiac Exam: Normal S1/S2 Heart Sounds Pulmonary Exam: Clear Bilateral Breath Sounds Implantable Cardiac Device Does patient have a Pacemaker or an ICD?: No Airway Exam Known Difficult Airway: No Mallampati Class: 2 Mouth Opening: Normal (> 3cm) Thyromental Distance: Greater than 3 cm Neck Range of Motion: Full ROM Neck Circumference: Normal Teeth Condition: Edentulous ASA Classification ASA Score: ASA 3 Emergency Case?: Yes NPO Status NPO Status: NPO Clears >2 hours, Solids >8 hours Anesthesia Plan Resuscitation Status: DNR Modified During Perioperative Period Resuscitation Modifications: Pt. Requests for Clinical Judgement to be Used Anesthesia Technique: General Anesthesia Airway Planned: LMA Monitors Used: Standard Monitors
--- NOTE | 2021-02-27 12:22 | OCONE_ITS ---
Date of service: 02/27/21 Time of Service: 11:55 History of Present Illness Narrative: Mechanical fall with left hip pain inability to bear weight. Has been living with son past few months after right ankle sprain. Consult Reason Left hip fracture Assessment and Plan Assessment and plan (1) Fracture of hip, left, closed: Status: Acute Assessment and plan: 85-year-old female with left displaced basicervical intertrochanteric hip fracture; history of right sprain in January 2021 and right valgus impacted hip fracture treated with cannulated screws on 05/04/2019. Mechanical fall yesterday with acute left hip pain. Patient with multiple medical comorbidities admitted to hospitalist service for medical optimization. Discussed with patient and her son. Decision to proceed with left hip surgery today: Left Hip intramedullary nailing. The risks, benefits, and alternatives were thoroughly discussed. They were counseled regarding pain management, expected postoperative course, and recovery timeline. All questions were answered. Informed consent was obtained. Agree and understand treatment plan. Qualifiers: Encounter type: initial encounter Qualified Code(s): S72.002A - Fracture of unspecified part of neck of left femur, initial encounter for closed fracture Review of Systems All systems reviewed & are unremarkable except as noted in HPI and below PFSH All Active Problems Hypertension (Chronic) Pelvic fracture (Acute) Discharge planning issues (Acute) DVT prophylaxis (Acute) Fracture of hip, left, closed (Acute 02/26/21) Fall (Acute) Right ankle sprain (Acute) Advance directive indicates patient wish for [id number] resuscitation status (Acute) Elevated BP without diagnosis of hypertension (Acute) Memory loss (Acute) Migraine headache without aura (Acute) Generalized weakness (Acute) Spinal stenosis (Acute) Atrial flutter (Chronic) paroxysmal, Atrial fib/flutter, rate controlled, not on anticoagulation. Zio Patch ordered. Premature beats (Chronic) 10/29/10 H/O multiples pvc's Osteoporosis (Chronic) Irritable colon (Chronic) Celiac disease (Chronic 06/12/13) Medical History Abnormal mammography (03/27/13) Adrenal insufficiency Ataxia Chronic headache Closed head injury Cortical cataract of left eye Diverticulosis of colon without diverticulitis DVT (deep venous thrombosis) s/p hemorrhoid banding Epiretinal membrane (ERM) of left eye Epiretinal membrane (ERM) of right eye GERD (gastroesophageal reflux disease) History of pelvic fracture Hypokalemia Hyponatremia Inflammation of Sacroiliac Joint Lumbosacral radiculopathy due to degenerative joint disease of spine Nuclear sclerotic cataract of left eye Osteoarthritis Pancreatic lesion Paroxysmal atrial fibrillation with rapid ventricular response PMR (polymyalgia rheumatica) Polymyalgia rheumatica (08/14/14) Post concussive syndrome Pyloric ulcer associated with Helicobacter pylori (01/21/05) Right lumbar radiculopathy (07/05/15) SIADH (syndrome of inappropriate ADH production) Urine sodium 56. Urine osmolality 460 Will need f/u lab and continued fluid restriction. Cause at this point is idiopathic. SIRS (systemic inflammatory response syndrome) Subconjunctival hemorrhage of left eye Trochanteric bursitis of both hips Surgical History Closed right hip fracture (05/03/19) S/P ORIF with cannulated screw fixation on 05/04/2019 Colonoscopy - MAC Hemorrhoidal Banding (04/27/17) Status post cataract extraction and insertion of intraocular lens of left eye (05/02/18) Status post cataract extraction and insertion of intraocular lens of right eye (05/16/18) Status post cholecystectomy Family History Mother No problems noted. Father Neoplasm PANCREATIC Sister Neoplasm BREAST/THYROID Social History Smoking/Tobacco Use Status: Never Smoking risk assessment performed?: Yes Alcohol Intake: never Drug use: Never Substance use type: does not use Counseling given: No Counseling provided: none Caregiver/Support person: Yes Household members: caregiver Housing: house Number of Children: 3 number of grandchildren: 5 Communication Needs: None Do you need help understanding health information?: Never current occupation: [employer] Pets and animals: No Sexually active: No Do you think of yourself as: straight/heterosexual Current gender identity: female What is your relationship status?: How often do you talk on the phone with friends or family?: three or more times per week How often do you get together with friends or relatives?: three or more times per week How often do you attend samaritan or zoroastrianism services?: decline to answer Do you belong to any clubs or organized social groups?: no Panel score (0-1 are the most socially isolated patients): 1 What type of physical activity do you participate in: none Frequency: does not exercise Jennifer/Sikhism: Spiritism Special jennifer needs: No Seatbelt use: always Helmet use: No Drive intox or ride w/intox 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 Tenderness about left hip and with logroll and unable to perform straight leg raise only gently tested No skin wounds or breakdown. Thigh compartment soft. No significant ecchymosis or edema. Distally neurovascularly intact. Able to perform right straight leg raise, nontender about right hip and negative logroll Results Last Vital Signs Temp 97.2 F L 02/27/21 05:57 Pulse 64 02/27/21 05:57 Resp 20 02/27/21 05:57 BP 146/76 H 02/27/21 05:57 Pulse Ox 94 02/27/21 05:57 Labs Result diagrams: 02/27/21 06:15 02/27/21 06:15 Labs: Laboratory Results - last 24 hr 02/26/21 02/26/21 02/26/21 22:38 22:38 22:55 WBC 10.18 RBC 4.77 Hgb 13.3 Hct 40.4 MCV 84.7 MCH 27.9 MCHC 32.9 RDW 12.8 Plt Count 297 D MPV 10.1 Immature Gran % Neutrophils % Lymphocytes % Monocytes % Eosinophils % Basophils % Nucleated RBC % Absolute Neutrophils Absolute Lymphocytes Absolute Monocytes Absolute Eosinophils Absolute Basophils PT INR Sodium 130 L Potassium 4.0 Chloride 92 L Carbon Dioxide 28.6 Anion Gap 9.4 BUN 18 Creatinine 1.1 H Estimated GFR/1.73 m2 47.21 Glucose 122 H Calcium 8.4 L Magnesium Total Bilirubin 0.3 AST 27 ALT 28 Alkaline Phosphatase 166 H Troponin I < 50 Total Protein 7.5 Albumin 3.5 Urine Color Yellow Urine Clarity Clear Urine pH 7.5 Ur Specific [place] 1.020 Urine Protein Negative Urine Ketones Negative Urine Blood Trace-intact H Urine Nitrite Negative Urine Bilirubin Negative Urine Urobilinogen 0.2 Ur Leukocyte Esterase Negative Urine RBC 0-2 Urine WBC 0-2 Ur Epithelial Cells Few Urine Crystals Negative Urine Bacteria Negative Urine Casts Negative Urine Mucus Negative Ur Culture Indicated? No Urine Glucose Negative COVID-19 Source Patient ABO/Rh Antibody Screen 02/26/21 02/26/21 02/27/21 22:57 23:42 06:15 WBC RBC Hgb Hct MCV MCH MCHC RDW Plt Count MPV Immature Gran % Neutrophils % Lymphocytes % Monocytes % Eosinophils % Basophils % Nucleated RBC % Absolute Neutrophils Absolute Lymphocytes Absolute Monocytes Absolute Eosinophils Absolute Basophils PT INR Sodium 127 L Potassium 4.3 Chloride 94 L Carbon Dioxide 27.6 Anion Gap 5.4 BUN 14 Creatinine 0.9 Estimated GFR/1.73 m2 59.51 Glucose 137 H Calcium 8.4 L Magnesium 1.9 Total Bilirubin AST ALT Alkaline Phosphatase Troponin I Total Protein Albumin Urine Color Urine Clarity Urine pH Ur Specific [place] Urine Protein Urine Ketones Urine Blood Urine Nitrite Urine Bilirubin Urine Urobilinogen Ur Leukocyte Esterase Urine RBC Urine WBC Ur Epithelial Cells Urine Crystals Urine Bacteria Urine Casts Urine Mucus Ur Culture Indicated? Urine Glucose COVID-19 Source Nasal/Nares Patient ABO/Rh O Positive Antibody Screen NEGATIVE 02/27/21 02/27/21 06:15 06:15 WBC 15.49 H D RBC 4.51 Hgb 12.5 Hct 38.5 MCV 85.4 MCH 27.7 MCHC 32.5 RDW 12.8 Plt Count 253 MPV 10.3 Immature Gran % 0.5 Neutrophils % 90.0 Lymphocytes % 3.5 Monocytes % 5.8 Eosinophils % 0.1 Basophils % 0.1 Nucleated RBC % 0 Absolute Neutrophils 13.94 H Absolute Lymphocytes 0.54 L Absolute Monocytes 0.90 H Absolute Eosinophils 0.02 Absolute Basophils 0.02 PT 9.9 INR 1.0 Sodium Potassium Chloride Carbon Dioxide Anion Gap BUN Creatinine Estimated GFR/1.73 m2 Glucose Calcium Magnesium Total Bilirubin AST ALT Alkaline Phosphatase Troponin I Total Protein Albumin Urine Color Urine Clarity Urine pH Ur Specific [place] Urine Protein Urine Ketones Urine Blood Urine Nitrite Urine Bilirubin Urine Urobilinogen Ur Leukocyte Esterase Urine RBC Urine WBC Ur Epithelial Cells Urine Crystals Urine Bacteria Urine Casts Urine Mucus Ur Culture Indicated? Urine Glucose COVID-19 Source Patient ABO/Rh Antibody Screen Imaging Imaging Studies: Pelvis and bilateral femur x-rays report and images reviewed: Acute displaced basicervical left hip fracture. Maintained healed alignment and hardware position right hip from prior valgus impacted femoral neck fracture treated with cannulated screws. No visible femoral shaft or distal femur acute pathology. Prior right healed pelvis rami fractures.
[2021-02-27] MEDS: Lactated Ringers 1,000 ML 30 ML IV (12:29)
--- NOTE | 2021-02-27 14:01 | W.PM.OP ---
Date of service: 02/27/21 Time of Service: 13:00 Operative Note Operative Note DATE OF PROCEDURE: 02/27/21 PRE-OP DIAGNOSIS: Left displaced basicervical intertrochanteric hip fracture POST-OP DIAGNOSIS: same PROCEDURE: Left hip intramedullary nailing, CPT# 26774 SURGEON: Sagar Freire SUPERVISOR ACCOUNTS RECEIVABLE: Zafar Gautam ANESTHESIA TYPE: Local By Surgeon and General LMA/ETT Refer to Anesthesia Record ESTIMATED BLOOD LOSS: 15 COMPLICATIONS: None Patient was transported to: PACU Patient's condition: stable Implants: Synthes TFNA with 85mm helical blade and 34mm distal locking screw Indications: Please see complete medical record for details. Procedure Description: In the operating room, general anesthesia was induced. The patient was positioned supine on the operating room table. All bony prominences were well-padded. Preoperative antibiotics were administered. The left hip was prepped and draped in the usual sterile fashion. The correct patient, procedure, and side of the procedure were all verified prior to incision. Gentle traction and internal rotation was used to properly align the hip fracture with excellent reduction on both AP and lateral fluoroscopy. 0.5% bupivacaine with epinephrine 20 cc was infiltrated about the greater trochanteric start site superficially and deep. A stab incision followed by the guidewire was used to localize the tip of the greater trochanter. Fluoroscopy was used to adjust proper trajectory down the proximal femur. The opening reamer was used to the appropriate depth taking care to ream the trochanteric start point despite trochanteric comminution. The nail was assembled on the back table, checked, and then inserted into the proximal femur to the appropriate depth. The cephalomedullary guide was used to create a stab lateral incision followed by placement of the guide down to bone and drive a guidewire into the center center position in the femoral head. The depth gauge measured 90 mm at subchondral bone so an 85 mm helical blade was selected. The reamer was used to open the lateral cortex and no additional reaming was done of the femoral head neck given age and poor bone quality. The helical blade was then gently malleted into fully seated position. Proper position confirmed on AP and lateral fluoroscopy. The plate was locked and then unlocked allowing controlled compression half a turn proximally. A few millimeters of compression were then achieved with the blade until there is excellent femoral neck bony apposition. The jig was then used to create another more distal stab incision for the distal locking screw. This was drilled bicortically, measured, and appropriate length screw inserted. The jig was removed. AP and lateral fluoroscopy confirmed appropriate fracture alignment and hardware placement. All 3 wounds were copiously irrigated with normal saline. Deep tissue proximally was closed using 0 Vicryl in a buried fashion. The distal sites were then infiltrated with another 10 cc of 0.5% bupivacaine. Subcutaneous tissue was closed using 2-0 Monocryl in a buried interrupted fashion. Skin glue was used to close the skin and 2 Mepilex bandage were placed over the incisions. The patient awoke from anesthesia without complication and was transferred to the recovery room in a stable condition.
--- NOTE | 2021-02-27 14:01 | PGE_ITS ---
Date of Service Date of service: 02/27/21 Time of Service: 14:01 Assessment and Plan Assessment and plan (1) Fracture of hip, left, closed: Status: Acute Assessment and plan: 85-year-old female postop day #0 status post left hip nail; history of right sprain in January 2021 and right valgus impacted hip fracture treated with cannulated screws on 05/04/2019. Complete 24 hours postoperative antibiotics Discontinue Ly catheter postop day #1 Pain control-Multimodal Physical therapy ordered: Weightbearing as tolerated with assist device May start chemical DVT prophylaxis tomorrow assuming hemodynamically stable Continue mechanical DVT prophylaxis with SCDs and/or AKIN hose I will see the patient tomorrow Discharge when medical appropriate Follow-up with Dr. Freire outpatient [facility] in 2 to 3 weeks Appreciate medical management Qualifiers: Encounter type: initial encounter Qualified Code(s): S72.002A - Fracture of unspecified part of neck of left femur, initial encounter for closed fracture Subjective Subjective Interval history since last seen: No complaints Exam Narrative Exam Narrative: Resting in recovery No acute distress Dressings clean dry intact Thigh compartments soft 2+ distal pulse Objective Last Vital Signs Temp 96.8 F L 02/27/21 13:58 Pulse 73 02/27/21 13:58 Resp 12 02/27/21 13:58 BP 177/64 H 02/27/21 13:58 Pulse Ox 95 02/27/21 13:58 Laboratory Results - last 24 hr 02/26/21 02/26/21 02/26/21 22:38 22:38 22:55 WBC 10.18 RBC 4.77 Hgb 13.3 Hct 40.4 MCV 84.7 MCH 27.9 MCHC 32.9 RDW 12.8 Plt Count 297 D MPV 10.1 Immature Gran % Neutrophils % Lymphocytes % Monocytes % Eosinophils % Basophils % Nucleated RBC % Absolute Neutrophils Absolute Lymphocytes Absolute Monocytes Absolute Eosinophils Absolute Basophils PT INR Sodium 130 L Potassium 4.0 Chloride 92 L Carbon Dioxide 28.6 Anion Gap 9.4 BUN 18 Creatinine 1.1 H Estimated GFR/1.73 m2 47.21 Glucose 122 H Calcium 8.4 L Magnesium Total Bilirubin 0.3 AST 27 ALT 28 Alkaline Phosphatase 166 H Troponin I < 50 Total Protein 7.5 Albumin 3.5 25-OH Vitamin D Total Urine Color Yellow Urine Clarity Clear Urine pH 7.5 Ur Specific [place] 1.020 Urine Protein Negative Urine Ketones Negative Urine Blood Trace-intact H Urine Nitrite Negative Urine Bilirubin Negative Urine Urobilinogen 0.2 Ur Leukocyte Esterase Negative Urine RBC 0-2 Urine WBC 0-2 Ur Epithelial Cells Few Urine Crystals Negative Urine Bacteria Negative Urine Casts Negative Urine Mucus Negative Ur Culture Indicated? No Urine Glucose Negative COVID-19 Source SARS-CoV-2 (PCR) Patient ABO/Rh Antibody Screen 02/26/21 02/26/21 02/27/21 22:57 23:42 06:15 WBC RBC Hgb Hct MCV MCH MCHC RDW Plt Count MPV Immature Gran % Neutrophils % Lymphocytes % Monocytes % Eosinophils % Basophils % Nucleated RBC % Absolute Neutrophils Absolute Lymphocytes Absolute Monocytes Absolute Eosinophils Absolute Basophils PT INR Sodium 127 L Potassium 4.3 Chloride 94 L Carbon Dioxide 27.6 Anion Gap 5.4 BUN 14 Creatinine 0.9 Estimated GFR/1.73 m2 59.51 Glucose 137 H Calcium 8.4 L Magnesium 1.9 Total Bilirubin AST ALT Alkaline Phosphatase Troponin I Total Protein Albumin 25-OH Vitamin D Total Urine Color Urine Clarity Urine pH Ur Specific [place] Urine Protein Urine Ketones Urine Blood Urine Nitrite Urine Bilirubin Urine Urobilinogen Ur Leukocyte Esterase Urine RBC Urine WBC Ur Epithelial Cells Urine Crystals Urine Bacteria Urine Casts Urine Mucus Ur Culture Indicated? Urine Glucose COVID-19 Source Nasal/Nares SARS-CoV-2 (PCR) Negative Patient ABO/Rh O Positive Antibody Screen NEGATIVE 02/27/21 02/27/21 02/27/21 06:15 06:15 06:15 WBC 15.49 H D RBC 4.51 Hgb 12.5 Hct 38.5 MCV 85.4 MCH 27.7 MCHC 32.5 RDW 12.8 Plt Count 253 MPV 10.3 Immature Gran % 0.5 Neutrophils % 90.0 Lymphocytes % 3.5 Monocytes % 5.8 Eosinophils % 0.1 Basophils % 0.1 Nucleated RBC % 0 Absolute Neutrophils 13.94 H Absolute Lymphocytes 0.54 L Absolute Monocytes 0.90 H Absolute Eosinophils 0.02 Absolute Basophils 0.02 PT 9.9 INR 1.0 Sodium Potassium Chloride Carbon Dioxide Anion Gap BUN Creatinine Estimated GFR/1.73 m2 Glucose Calcium Magnesium Total Bilirubin AST ALT Alkaline Phosphatase Troponin I Total Protein Albumin 25-OH Vitamin D Total 43.6 Urine Color Urine Clarity Urine pH Ur Specific [place] Urine Protein Urine Ketones Urine Blood Urine Nitrite Urine Bilirubin Urine Urobilinogen Ur Leukocyte Esterase Urine RBC Urine WBC Ur Epithelial Cells Urine Crystals Urine Bacteria Urine Casts Urine Mucus Ur Culture Indicated? Urine Glucose COVID-19 Source SARS-CoV-2 (PCR) Patient ABO/Rh Antibody Screen
--- NOTE | 2021-02-27 15:05 | W.ANESPOSTOP ---
Postoperative Evaluation Date, Time and Location Date Performed: 02/27/21 Time Performed: 14:40 Patient Location: PACU Vital Signs Most Recent Imported Vital Signs: Most Recent Vital Signs Temp Pulse Resp BP Pulse Ox 36.1 C L 69 13 189/59 H 97 02/27/21 14:38 02/27/21 14:38 02/27/21 14:38 02/27/21 14:38 02/27/21 14:38 Pain Score Most Recent Pain Score: Most Recent Pain Score Pain Level 0 02/27/21 11:43 Assessment Mental Status: Awake (Alert & Oriented to Patient Baseline) Airway and Respiratory Function: Patent airway with normal (patient baseline) respiratory exam Cardiovascular Function: Hemodynamically Stable Hydration Status: Adequately Hydrated Nausea & Vomiting: No Nausea or Vomiting Pain: Pain is tolerable per patient Peripheral Nerve Block: Patient did not receive a nerve block
[2021-02-27] MEDS: Salt Supplement (BUFFERED) TAB 1 TAB PO ×2 (15:30→20:06)
--- NOTE | 2021-02-27 16:19 | PGE_ITS ---
Date of Service Date of service: 02/27/21 Time of Service: 16:19 Assessment and Plan Assessment and plan (1) Fracture of hip, left, closed: Status: Acute Assessment and plan: surgical repair today orthopedics following with routine postoperative care plan. pain management incentive spirometry Bowel regimen. Hussein. discontinue tomorrow Qualifiers: Encounter type: initial encounter Qualified Code(s): S72.002A - Fracture of unspecified part of neck of left femur, initial encounter for closed fracture (2) Pelvic fracture: Status: Acute Assessment and plan: Orthopedics following. nonoperative management. Pain control, bowel regimen, PT when ok with ortho. (3) SIADH (syndrome of inappropriate ADH production): Assessment and plan: Continue salt tablets (4) Paroxysmal atrial fibrillation with rapid ventricular response: Assessment and plan: Not on anticoagulation. Last echo in 09/2019: LVEF 60%, nml wall motion, RVSP 22.4 mmhg, moderate aortic regurg, mild mitral regurg. Patient is not on tele as the description of the fall appears to be mechanical. 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 Will provide stress dose steroids (6) Hypertension: Status: Chronic Assessment and plan: BP currently elevated due to pain, although I see that on the last Neurology appointment, BP was elevated also. Continue home toprol XL - consider increase in dose and addition of a 2nd agent. Control pain. (7) DVT prophylaxis: Status: Acute Assessment and plan: SCDs and teds lovenox while hospitalized, asa at discharge for one month (8) Discharge planning issues: Status: Acute Assessment and plan: DNR/DNI as confirmed in conversation with the patient as well as documented by PCP and per [facility] form 12/26/20. case management following. anticipate detention facility discharge. discussed with Dr Basurto Subjective Subjective Patient reports: feels better, voiding w/o difficulty (has indwelling hussein c atheter) and afebrile; denies shortness of breath Exam Const General: cooperative and no acute distress HENMT Head: normocephalic and atraumatic Mouth: moist mucous membranes Eyes Conjunctivae: normal conjunctivae Sclera: normal sclerae Neck Neck: supple Resp Auscultation: clear to auscultation bilaterally Cardio Rate: regular rate Rhythm: regular rhythm GI Palpation: soft and nontender Skin Lesions: lesion noted (surgical wound not visualized, dressing intact and clean, no erythema surro) Neuro General: patient alert, patient awake, patient oriented x3 and tone normal Extrem General: no edema Psych Appearance: grossly normal Mental Status: mental status grossly normal Speech and Movement: speech and movement normal Objective Last Vital Signs Temp 35.6 C L 02/27/21 15:49 Pulse 66 02/27/21 15:49 Resp 16 02/27/21 15:49 BP 149/73 H 02/27/21 15:49 Pulse Ox 93 02/27/21 15:49 Laboratory Results - last 24 hr 02/26/21 02/26/21 02/26/21 22:38 22:38 22:55 WBC 10.18 RBC 4.77 Hgb 13.3 Hct 40.4 MCV 84.7 MCH 27.9 MCHC 32.9 RDW 12.8 Plt Count 297 D MPV 10.1 Immature Gran % Neutrophils % Lymphocytes % Monocytes % Eosinophils % Basophils % Nucleated RBC % Absolute Neutrophils Absolute Lymphocytes Absolute Monocytes Absolute Eosinophils Absolute Basophils PT INR Sodium 130 L Potassium 4.0 Chloride 92 L Carbon Dioxide 28.6 Anion Gap 9.4 BUN 18 Creatinine 1.1 H Estimated GFR/1.73 m2 47.21 Glucose 122 H Calcium 8.4 L Magnesium Total Bilirubin 0.3 AST 27 ALT 28 Alkaline Phosphatase 166 H Troponin I < 50 Total Protein 7.5 Albumin 3.5 25-OH Vitamin D Total Urine Color Yellow Urine Clarity Clear Urine pH 7.5 Ur Specific [place] 1.020 Urine Protein Negative Urine Ketones Negative Urine Blood Trace-intact H Urine Nitrite Negative Urine Bilirubin Negative Urine Urobilinogen 0.2 Ur Leukocyte Esterase Negative Urine RBC 0-2 Urine WBC 0-2 Ur Epithelial Cells Few Urine Crystals Negative Urine Bacteria Negative Urine Casts Negative Urine Mucus Negative Ur Culture Indicated? No Urine Glucose Negative COVID-19 Source SARS-CoV-2 (PCR) Patient ABO/Rh Antibody Screen 02/26/21 02/26/21 02/27/21 22:57 23:42 06:15 WBC RBC Hgb Hct MCV MCH MCHC RDW Plt Count MPV Immature Gran % Neutrophils % Lymphocytes % Monocytes % Eosinophils % Basophils % Nucleated RBC % Absolute Neutrophils Absolute Lymphocytes Absolute Monocytes Absolute Eosinophils Absolute Basophils PT INR Sodium 127 L Potassium 4.3 Chloride 94 L Carbon Dioxide 27.6 Anion Gap 5.4 BUN 14 Creatinine 0.9 Estimated GFR/1.73 m2 59.51 Glucose 137 H Calcium 8.4 L Magnesium 1.9 Total Bilirubin AST ALT Alkaline Phosphatase Troponin I Total Protein Albumin 25-OH Vitamin D Total Urine Color Urine Clarity Urine pH Ur Specific [place] Urine Protein Urine Ketones Urine Blood Urine Nitrite Urine Bilirubin Urine Urobilinogen Ur Leukocyte Esterase Urine RBC Urine WBC Ur Epithelial Cells Urine Crystals Urine Bacteria Urine Casts Urine Mucus Ur Culture Indicated? Urine Glucose COVID-19 Source Nasal/Nares SARS-CoV-2 (PCR) Negative Patient ABO/Rh O Positive Antibody Screen NEGATIVE 02/27/21 02/27/21 02/27/21 06:15 06:15 06:15 WBC 15.49 H D RBC 4.51 Hgb 12.5 Hct 38.5 MCV 85.4 MCH 27.7 MCHC 32.5 RDW 12.8 Plt Count 253 MPV 10.3 Immature Gran % 0.5 Neutrophils % 90.0 Lymphocytes % 3.5 Monocytes % 5.8 Eosinophils % 0.1 Basophils % 0.1 Nucleated RBC % 0 Absolute Neutrophils 13.94 H Absolute Lymphocytes 0.54 L Absolute Monocytes 0.90 H Absolute Eosinophils 0.02 Absolute Basophils 0.02 PT 9.9 INR 1.0 Sodium Potassium Chloride Carbon Dioxide Anion Gap BUN Creatinine Estimated GFR/1.73 m2 Glucose Calcium Magnesium Total Bilirubin AST ALT Alkaline Phosphatase Troponin I Total Protein Albumin 25-OH Vitamin D Total 43.6 Urine Color Urine Clarity Urine pH Ur Specific [place] Urine Protein Urine Ketones Urine Blood Urine Nitrite Urine Bilirubin Urine Urobilinogen Ur Leukocyte Esterase Urine RBC Urine WBC Ur Epithelial Cells Urine Crystals Urine Bacteria Urine Casts Urine Mucus Ur Culture Indicated? Urine Glucose COVID-19 Source SARS-CoV-2 (PCR) Patient ABO/Rh Antibody Screen
--- NOTE | 2021-02-27 16:50 | PDOC.CMIN ---
- If Service Date Differs Date of service: 02/27/21 Time of Service: 16:50 Care Management Initial Assess REASON FOR HOSPITALIZATION:: L HIP Fracture PAST MEDICAL HISTORY/PAST SURGICAL HISTORY:: Medical History . Abnormal mammography (03/27/13). Adrenal insufficiency. Ataxia. Chronic headache. Closed head injury. Cortical cataract of left eye. Diverticulosis of colon without diverticulitis. DVT (deep venous thrombosis). s/p hemorrhoid banding. Epiretinal membrane (ERM) of left eye. Epiretinal membrane (ERM) of right eye. GERD (gastroesophageal reflux disease). History of pelvic fracture. Hypokalemia. Hyponatremia. Inflammation of Sacroiliac Joint. 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 Nuclear sclerotic cataract of left eye. Osteoarthritis. Pancreatic lesion. Paroxysmal atrial fibrillation with rapid ventricular response. PMR (polymyalgia rheumatica). Polymyalgia rheumatica (08/14/14). Post concussive syndrome. Pyloric ulcer associated with Helicobacter pylori (01/21/05). Right lumbar radiculopathy (07/05/15). SIADH (syndrome of inappropriate ADH production). Urine sodium 56. Urine osmolality 460 Will need f/u lab and continued fluid restriction. Cause at this point is idiopathic. SIRS (systemic inflammatory response syndrome). Subconjunctival hemorrhage of left eye. Trochanteric bursitis of both hips. Surgical History . Closed right hip fracture (05/03/19). S/P ORIF with cannulated screw fixation on 05/04/2019. Colonoscopy - MAC. Hemorrhoidal Banding (04/27/17). Status post cataract extraction and insertion of intraocular lens of left eye (05/02/18). Status post cataract extraction and insertion of intraocular lens of right eye (05/16/18). Status post cholecystectomy PREVIOUS FUNCTIONAL STATUS/SOCIAL/FAMILY SUPPORTS:: Colleen resides alone in [place], [place]. She is and has three adult children, Eusebio her son who resides in [place] comes often and helps stock her home with food, provides transportation when needed and house cleaning. Her additional children include her son Raj who resides in [place] and her daugher, Mylene in [place]. She has two sisters who reside locally, Edith resides in [place], and Ethel in [place]. Colleen reports her large house is always teeming with 8-10 grandchildren and great children at a time, who come and stay with her, ride four wheelers and snowmachines, foster and enjoy her land. She enjoys gardening, quilting, sewing and reports she is able to drive, but has allowed Eusebio to take over the errands and transportation the last few months. CURRENT FUNCTIONAL STATUS:: Colleen remains on bedrest at this time, when stable post surgically she will be evaluated for discharge planning considerations. ADVANCE DIRECTIVES:: [facility] on file. Has patient been provided with info about the portal/API?: Yes CODE STATUS:: DNR/DNI INSURANCE COVERAGE / FINANCIAL ISSUES:: Medicare. Commercial Ins CURRENT HOME/COMMUNITY SERVICES/EQUIPMENT:: Grab bars, tub seat/bench, hand head shower, walker PRIMARY CARE PHYSICIAN:: Aby Salvador POTENTIAL DISCHARGE NEEDS:: PT Evaluation, SNF coordination possible. PATIENT/FAMILY EDUCATION NEEDS:: Review discharge instructions, discuss Ask Me Three. ANTICIPATED BARRIERS TO DISCHARGE:: None identified. TRANSPORTATION:: TBD by disposition and mobility. PLAN:: Colleen continues to be closely monitored and treated post operatively. Awaiting PT evaluation to inform discharge planning needs. CM continues to follow.
[2021-02-27] MEDS: Docusate Sodium 100 MG CAP PO (20:06)
[2021-02-27] MEDS: ceFAZolin 1 GM/50 ML BAG IVPB (20:09)
[2021-02-27] MEDS: Gabapentin 300 MG CAP 600 MG PO (21:47)
[2021-02-28] VITALS (7 sets, daily range): BP systolic 138–171; BP diastolic 62–88; PULSE 65–77; RESP 12–18; TEMP 36–37.2; O2SAT 94–95
[2021-02-28] MEDS: Hydrocortisone SOD SUC. 100 MG VIAL 50 MG IVP ×3 (00:21→15:51)
[2021-02-28] MEDS: ceFAZolin 1 GM/50 ML BAG IVPB ×2 (04:26→11:27)
[2021-02-28] MEDS: ACETAMINOPHEN 1,000 MG/100 ML BTL 400 MG IVPB (06:46)
[2021-02-28] MEDS: DEXTROSE 5%-0.9% SALINE 1,000 ML 100 ML IV (09:07)
[2021-02-28] MEDS: Metoprolol CR 100 MG TABCR PO (09:08)
[2021-02-28] MEDS: Aspirin E.C. 81 MG TABEC PO (09:08)
[2021-02-28] MEDS: Docusate Sodium 100 MG CAP PO ×2 (09:08→19:36)
[2021-02-28] MEDS: Gabapentin 300 MG CAP PO (09:08)
[2021-02-28] MEDS: Multivitamin TAB 1 TAB PO (09:08)
[2021-02-28] MEDS: Omeprazole 20 MG CAPCR PO (09:08)
[2021-02-28] MEDS: Salt Supplement (BUFFERED) TAB 1 TAB PO ×2 (09:08→19:36)
[2021-02-28] MEDS: Normal Saline Flush 10 ML SYR IVP ×3 (09:09→15:52)
--- NOTE | 2021-02-28 10:15 | IN_ITS ---
Date of service: 02/28/21 Time of Service: 10:18 PT Notes Visit Reasons: L Hip Fracture (traumatic) Physical Therapy Inpatient Initial Evaluation Date: 02/28/2021 Referring Doctor: Sagar Freire MD PT Orders: PT CONSULT: Limited ability. WBAT BLUE with assist device Precautions: Fall. Standard. WBAT on L LE with AD. Patient Profile/Admitting Diagnosis: Colleen is a 85-year-old female with left displaced basicervical intertrochanteric hip fracture and is S/P L hip intramedullary nailing on postoperative day 1. PMHX: All Active Problems (Updated 02/27/21 @ 01:22 by Yesenia Basilio MD) Hypertension (Chronic) Pelvic fracture (Acute) Discharge planning issues (Acute) DVT prophylaxis (Acute) Fracture of hip, left, closed (Acute) Fall (Acute) Right ankle sprain (Acute) Advance directive indicates patient wish for [id number] resuscitation status (Acute) Elevated BP without diagnosis of hypertension (Acute) Memory loss (Acute) Migraine headache without aura (Acute) Generalized weakness (Acute) Spinal stenosis (Acute) Atrial flutter (Chronic) paroxysmal, Atrial fib/flutter, rate controlled, not on anticoagulation. Zio Patch ordered. Premature beats (Chronic) 10/29/10 H/O multiples pvc's Osteoporosis (Chronic) Irritable colon (Chronic) Celiac disease (Chronic 06/12/13) Medical History Abnormal mammography (03/27/13) Adrenal insufficiency Ataxia Chronic headache Closed head injury Cortical cataract of left eye Diverticulosis of colon without diverticulitis DVT (deep venous thrombosis) s/p hemorrhoid banding Epiretinal membrane (ERM) of left eye Epiretinal membrane (ERM) of right eye GERD (gastroesophageal reflux disease) History of pelvic fracture Hypokalemia Hyponatremia Inflammation of Sacroiliac Joint Lumbosacral radiculopathy due to degenerative joint disease of spine Nuclear sclerotic cataract of left eye Osteoarthritis Pancreatic lesion Paroxysmal atrial fibrillation with rapid ventricular response PMR (polymyalgia rheumatica) Polymyalgia rheumatica (08/14/14) Post concussive syndrome Pyloric ulcer associated with Helicobacter pylori (01/21/05) Right lumbar radiculopathy (07/05/15) SIADH (syndrome of inappropriate ADH production) Urine sodium 56. Urine osmolality 460 Will need f/u lab and continued fluid restriction. Cause at this point is idiopathic. SIRS (systemic inflammatory response syndrome) Subconjunctival hemorrhage of left eye Trochanteric bursitis of both hips Surgical History Closed right hip fracture (05/03/19) S/P ORIF with cannulated screw fixation on 05/04/2019 Colonoscopy - MAC Hemorrhoidal Banding (04/27/17) Status post cataract extraction and insertion of intraocular lens of left eye (05/02/18) Status post cataract extraction and insertion of intraocular lens of right eye (05/16/18) Status post cholecystectomy Social History/Home Situation: Patient is not a reliable historian. Will check with care management regarding home situation and/resources. Equipment Owned/DME: Patient reports that she has a FWW. Subjective: When asked how she fell, she states that she was taking online knitting classes, stood up, and fell. She later says that she was headed to the laundry area when she fell. After walking 6 steps with a walker, patient states I feel like I have mopped 6 floors with a sock! Objective: General Observation: Supine in bed. IV in the L brachium. Ly catheter in place. Mepilex Ag over surgical incision. Mental Status: Pleasantly, mildly confused. Able to state her birthday and is aware that she is in the hospital. She does have several off-tangent remarks throughout our session. Pain: Minimal at rest and moderate wigth weight bearing Vital Signs: WNL as monitored by nursing staff ROM: Right Upper Extremity: Shoulder Flexion WFL. Shoulder abduction WFL. Elbow flexion WFL. Wrist flexion WFL. Functional opening and closing of hand WFL. Left Upper Extremity: Shoulder Flexion WFL. Shoulder abduction WFL. Elbow flexion WFL. Wrist flexion WFL. Functional opening and closing of hand WFL. Right Lower Extremity: Hip flexion WFL. Hip abduction WFL. Knee flexion WFL. Ankle dorsiflexion to neutral only. Ankle plantarflexion WFL. Left Lower Extremity: Hip flexion only allows about 20 degrees due to pain. Hip abduction allows only about 10 degrees due to pain. Knee flexion allows up to 90 degrees. Ankle dorsiflexion to neutral only. Ankle plantarflexion WFL. Strength: Right Upper Extremity: Shoulder flexors 4-/5. Shoulder abductors 4-/5. Elbow flexors 4-/5. Elbow extensors 4-/5. Machine Stripper strong. Left Upper Extremity: Shoulder flexors 4-/5. Shoulder abductors 4-/5. Elbow flexors 4-/5. Elbow extensors 4-/5. Machine Stripper strong. Right Lower Extremity: Hip flexors 2-/5. Hip abductors 2-/5. Knee flexors 3-/5. Knee extensors 3-/5. Ankle dorsiflexors 3-/5. Ankle plantarflexors 4-/5. Left Lower Extremity: Hip flexors 4-/5. Hip abductors 4-/5. Knee flexors 4-/5. Knee extensors 4-/5. Ankle dorsiflexors 4-/5. Ankle plantarflexors 3+/5. Bed Mobility/Transfers: Rolling minimal assist of one Supine to sit with minimal assist with moderate cues for safe/correct technique Sit to stand with mod assist with moderate cues for safe/correct technique Stand to sit with contact-guard assist with moderate cues for safe/correct technique Bed to bedside commode with minimal assist with moderate cues for safe/correct technique Bed to reclining chair with minimal assist of two with moderate cues for safe/correct technique Gait: Instructed patient with level surface ambulation of six feet requiring minimal assist of 2 . Beth decreased. Step height decreased on left. Step length decreased on left. Balance: Static Sitting: Normal Dynamic Sitting: Good Static Standing: Fair Dynamic Standing: Poor Special Tests: Mobility Limitations Standardized Measure [facility] 6 clicks Basic Mobility Inpatient Short Form: Raw Score: 12 CMS Score: 69% deficit Informed Consent/Education: Patient was instructed in purpose of PT consult and plan of care. Agreeable to proceed with established PT POC to achieve personal goals. Assessment: Pain level limiting mobility performance. Well coordinate with nurse to premedicate patient for pain for succeeding sessions. Patient demonstrates functional mobility decline, difficulty with ambulation, impaired balance, and increased risk for falls due to postoperative status. Needs frequent redirection due to confusion. Patient presents with clinical signs and symptoms consistent with current/admi tting diagnoses that have resulted to mobility limitations, gait instability, generalized weakness, and overall ADL decline as demonstrated by the following impairment level findings: 1. Decreased strength to L LE major muscle groups 2. Impaired sitting/standing balance 3. Impaired activity tolerance 4. Limitation of joint range of motion in left hip and knee 5. Pain in left hip 6. Confusion Impairments are contributing to the following functional limitations: 1. Decline in bed mobility skills 2. Decline in transfer skills 3. Difficulty with ambulation without assistive device and physical assistance 4. Increased completion time for mobility ADL performance 5. Increased risk for falls 6. Difficulty with managing steps alone safely Patient is assessed as a 19191 moderate complexity based on the following: History: 85-year-old female with past medical history as indicated above Examination: Demonstrable impairment in strength, balance, and mobility level with underlying impairments and functional limitations as exhibited above as well as deficit score of 69% utilizing the [facility] Mobility Inpatient Short Form Presentation: Evolving Decision Makin moderate complexity Goals: Goals X1 week 1. Supine-Sit independent 2. Sit-Supine independent 3. Sit-Stand independent 4. Stand-Sit stand by assist with FWW 5. Bed-Chair stand by assist with FWW 6. Chair-Bed stand by assist with FWW 7. Stand by assist gait on level surface with use of [] for at least [] feet without report of pain nor dyspnea 8. Stand by assist with stair negotiation while holding onto [] rails for at least [] steps without report of pain nor dyspnea 9. Good static and dynamic standing balance/tolerance Plan of Care/Treatment Plan: 1-2x/day, 7 days/week x 1 week. Plan of care has been reviewed with the [employer] providing the service under Physical Therapy direction. Initiate Physical Therapy intervention for pain management as needed, strengthening, bed mobility, transfers, gait, stairs, balance training, and use of assistive device. DISCHARGE RECOMMENDATIONS: [] Home with no services [] [] Home with services [specify] [] Home with outpatient PT [] [X] SNF for continued rehabilitation. Patient will benefit from custodial facility placement for continued skilled physical therapy services in order to progress mobility level, strength, and balance in preparation for a safe discharge to home. [] Flat Bed Operator Care [] [] SNF versus LTC based on ability to participate and progress [] TREATMENT CODE/TIME: 93367 x 20 minutes, 28039 x 24 minutes beginning at 10:15 AM. Thank you for the opportunity to participate in the care of this patient. Denise Ramirez PT, DPT, CLT [facility] [place], [place]
--- NOTE | 2021-02-28 10:55 | PHACLINREV_ITS ---
Pharmacy Admission Review - Admission Clinical Review (Last Reviewed 02/27/21 @ 12:04 by Aisha Hunter RN) Pelvic fracture (Acute) Discharge planning issues (Acute) DVT prophylaxis (Acute) Fracture of hip, left, closed (Acute 02/26/21) Fall (Acute) carbamazepine Adverse Reaction (Severe, Verified 02/26/21 10:11) Confusion and disorientation morphine Adverse Reaction (Intermediate, Verified 02/26/21 10:11) made my chest feel likie I was in a vice Resuscitation Status DNR/DNI Height 5 ft Weight 58.2 kg - Renal Dosing Renal Dosing: BUN 14 mg/dL (7-18) 02/27/21 06:15 Creatinine 0.9 mg/dL (0.55-1.02) 02/27/21 06:15 Medications needing adjustments: Reviewed List of meds needing interventions: eCrCl 32.8 ml/min, orders ok - Anticoagulation Anticoagulation: Hgb 12.5 g/dL (11.2-15.7) 02/27/21 06:15 Hct 38.5 % (36.0-46.0) 02/27/21 06:15 Plt Count 253 10^3/uL (130-400) 02/27/21 06:15 INR 1.0 (0.9-1.1) 02/27/21 06:15 Creatinine 0.9 mg/dL (0.55-1.02) 02/27/21 06:15 DVT Prophylaxis: Intervened (chemical dvt ppx should start today (1 day post- op), will notify provider) Therapeutic Anticoagulation: N/A - Opiate Usage Evaluate Pain Scale/Pains Meds: Reviewed (dilaudid IV q4h) Scheduled Bowel Reg ordered if on Opiates?: No (BM today, will notify md) - Relevant Labs Sodium 127 mmol/L (136-145) L 02/27/21 06:15 Potassium 4.3 mmol/L (3.5-5.1) 02/27/21 06:15 Chloride 94 mmol/L (98-107) L 02/27/21 06:15 Magnesium 1.9 mg/dL (1.8-2.4) 02/27/21 06:15 Electrolytes, C-Reactive P, ESR: Reviewed (receiving salt supplement BID) - DM Control DM Control: Glucose 137 mg/dL (74-106) H 02/27/21 06:15 Insulin Dosing: N/A - Heart Failure/WV Heart Failure/WV: Troponin I < 50 ng/L (<or=60) 02/26/21 22:38 EF%, JOSE J's, B-Blockers, Diuretics: Reviewed - BP Control BP Control: Blood Pressure 150/79 Blood Pressure 158/80 Blood Pressure 138/62 If elevated: Reviewed - Qtc Review If Elevated: Reviewed List meds needing interventions: QTc 435 on admission - IV to PO Switch IV Medications: Reviewed - Home Meds Home Med List reviewed: Intervened Relevent Home Meds Not ordered & why?: notified md to order daily PO prednisone in addition to stress dose regimen, all other meds ordered - Current meds Current Medication Order Review: Reviewed
[2021-02-28] MEDS: Enoxaparin 30 MG/0.3 ML SYR SC (11:27)
[2021-02-28] MEDS: predniSONE 5 MG TAB PO (12:13)
[2021-02-28] MEDS: amLODIPine 5 MG TAB PO (13:00)
[2021-02-28] MEDS: hydrALAZINE 20 MG/ML VIAL 10 MG IVP (13:01)
--- NOTE | 2021-02-28 13:13 | W.PM.PROGNOT ---
Date of Service Date of service: 02/28/21 Time of Service: 13:13 Assessment and Plan Assessment and plan (1) Fracture of hip, left, closed: Start date: 02/28/21 Start time: 13:32 Status: Acute Assessment and plan: POD 1, doing well, no pain Ortho recommendations, start enoxaparin, wt bearing with assitive device. as tolerated PT pain management- tylenol scheduled, along with incentive spirometry Bowel regimen. Hussein dcd per Dr. Freire recommendation Qualifiers: Encounter type: initial encounter Qualified Code(s): S72.002A - Fracture of unspecified part of neck of left femur, initial encounter for closed fracture (2) Pelvic fracture: Start date: 02/28/21 Start time: 13:46 Status: Acute Assessment and plan: Orthopedics following. nonoperative management. Pain cont,. (3) SIADH (syndrome of inappropriate ADH production): Start date: 02/28/21 Start time: 14:02 Assessment and plan: Continue salt tablets (4) Paroxysmal atrial fibrillation with rapid ventricular response: Start date: 02/28/21 Start time: 14:02 Assessment and plan: Not on anticoagulation. Last echo in 09/2019: LVEF 60%, nml wall motion, RVSP 22.4 mmhg, moderate aortic regurg, mild mitral regurg. Patient is not on tele as the description of the fall appears to be mechanical. 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 Will provide stress dose steroids along with home dose steroids (6) Hypertension: Start date: 02/28/21 Start time: 14:03 Status: Chronic Assessment and plan: BP currently elevated not in the setting of pain. Her bp has been elevated even in the setting without pain. Will give hydralizine at this time. Initiate amlodipine given how high BP is. BP was also elevated at Dr. ridley previous to admission Continue home toprol XL - (7) DVT prophylaxis: Start date: 02/28/21 Start time: 14:13 Status: Acute Assessment and plan: Started on enoxaparin subcu (8) Discharge planning issues: Start date: 02/28/21 Start time: 14:15 Status: Acute Assessment and plan: DNR/DNI as confirmed in conversation with the patient as well as documented by PCP and per [facility]ST form 11/4/21. case management following. anticipate fdc facility discharge. discussed with Dr Basurto Subjective Subjective Patient reports: no new complaints Interval history since last seen: Patient doing well, no pain, BP is elevated and continues to be. It has been elevated through out the entire stay, will start on low dose amlodipine, for now give dose of hydralizine, she denies pain. Sitting up in chair. States she feels good. Will also d/c IVF which could driving up her BP, however she did state at her Dr. appt the other day her BP was elevated and there was mention of adding an additional bp medication. Otherwise, doing well and will follow ortho recommendation. Exam Narrative Exam Narrative: General: Pleasant elderly female sitting up in chair denies pain, A&Ox3, appears comfortable. Neurological: A&Ox3, no focal deficits, forgetful Psychiatric: appropriate affect, cooperative Skin: Visible skin intact HEENT: Atraumatic, normocephalic, EOMI, dry MM, clear oropharynx, no submandibular or cervical lymphadenopathy, no goiter or JVD Cardiovascular: RRR, no m/r/g Lungs: CTAB anteriorly Gastrointestinal: soft, nontender, nondistended Genitourinary: has a hussein catheter Extremities: no edema BLE's, left lower extremity with surgical bandage, some edema to surgical site otherwise C/D/I. Objective Last Vital Signs Temp 36.8 C 02/28/21 11:24 Pulse 77 02/28/21 11:24 Resp 17 02/28/21 11:24 BP 161/88 H 02/28/21 13:08 Pulse Ox 94 02/28/21 11:24
--- NOTE | 2021-02-28 13:45 | CHAPLAIN ---
Colleen was up in the chair when I visited. She told me that she fell in her bedroom, didn't trip over anything, just fell. She said her was there to help, but the Care Management notes state that she is a . I think she talked about her plowing today, so he is unable to visit, but she may have been talking about her son Eusebio. Her sister called today, but Colleen suggested she not visit because of the weather. Colleen said she had surgery on one hip, but needs a second surgery on the other hip. She said she thought that was happening today, but she also said she didn't really know the timing of the surgery. Colleen lives in [place]. Rev. Eli Heart, a retired [employer] dialysis tech, lives near Colleen and stops by to visit on a regular basis.
--- NOTE | 2021-02-28 13:46 | PDOC.CMPRO ---
Care Management Progress Note S/O: Colleen was sitting up in her chair when CM met with her. She was pleasant and easily engaged in conversation. She reported her son could come stay with her if needed, but was agreeable to SNF if recommended. She reported previously, she has rehabbed at [facility]. Anticipate she will remain at [facility] over the weekend and be re-evaluated for discharge on Wednesday. CM continues to follow. A: 85 year old female admitted to [facility] 02/27/20 for L Hip Fracture P: Colleen is agreeable to SNF, if recommended for discharge. CM faxed referrals to [facility] and [facility] per patient request. Anticipate Colleen will either return home with home health and her son's support on Wednesday, or transfer to SNF dependent on progress in mobility. CM continues to follow.
--- NOTE | 2021-02-28 14:26 | PT.INTREAT ---
Date of service: 03/01/21 Time of Service: 15:05 PT Notes Visit Reasons: L Hip Fracture (traumatic) Physical Therapy Inpatient Treatment Note Date: 02/28/2021 Precautions: Fall. Standard. WBAT on L LE with AD. Subjective: Agreeable to be walked for this session. Continues to report pain with weight bearing but is beginning to tolerate movement better. Objective: General Observation: Seated on chair. IV in the L brachium. Ly catheter in place. Mepilex Ag over surgical incision. Mental Status: Pleasantly, mildly confused. Able to state her birthday and is aware that she is in the hospital. She does have several off-tangent remarks throughout our session. Pain: Minimal at rest and moderate wigth weight bearing Vital Signs: WNL as monitored by nursing staff Gait: Instructed patient with level surface ambulation of 30 feet requiring minimal assist and wheelchair follow of Nurse Caro. Moderate pain with weight bearing. Beth decreased. Step height decreased on left. Step length decreased on left. THERA EX: Seated LAQs x 10, hip flexion x 10, ankle DF/PF x 10, quadriceps sets x 10. Balance: Static Sitting: Normal Dynamic Sitting: Good Static Standing: Fair Dynamic Standing: Poor Assessment: Much improved ambulation distance during the afternoon session. Pain level limiting mobility performance. Will coordinate with nurse to premedicate patient for pain for succeeding sessions. Patient demonstrates functional mobility decline, difficulty with ambulation, impaired balance, and increased risk for falls due to postoperative status. Needs frequent redirection due to confusion. DISCHARGE RECOMMENDATIONS: [] Home with no services [] [] Home with services [specify] [] Home with outpatient PT [] [X] SNF for continued rehabilitation. Patient will benefit from assisted facility placement for continued skilled physical therapy services in order to progress mobility level, strength, and balance in preparation for a safe discharge to home. [] Research Scientist Care [] [] SNF versus LTC based on ability to participate and progress [] TREATMENT CODE/TIME: 34030 x 20 minutes, 57263 x 19 minutes beginning at 14:26 PM.
[2021-02-28] MEDS: Acetaminophen 500 MG TAB 1000 MG PO ×2 (14:44→21:38)
--- NOTE | 2021-02-28 15:14 | W.PM.PROGNOT ---
Date of Service Date of service: 02/28/21 Time of Service: 15:14 Assessment and Plan Assessment and plan (1) Fracture of hip, left, closed: Status: Acute Assessment and plan: 85-year-old female postop day #1 status post left hip nail; history of right sprain in January 2021 and right valgus impacted hip fracture treated with cannulated screws on 05/04/2019. Chart reviewed showing appropriate progress postoperatively Pain control-Multimodal Continue physical therapy weightbearing as tolerated with assist device Recommend Lovenox 30 mg daily for 30 days as DVT prophylaxis given relatively high risk immobility status and likely discharge to nursing facility Discharge when medical appropriate Follow-up with Dr. Freire outpatient [facility] in 2 to 3 weeks Appreciate medical management Qualifiers: Encounter type: initial encounter Qualified Code(s): S72.002A - Fracture of unspecified part of neck of left femur, initial encounter for closed fracture Objective Last Vital Signs Temp 98.2 F 02/28/21 11:24 Pulse 77 02/28/21 11:24 Resp 17 02/28/21 11:24 BP 161/88 H 02/28/21 13:08 Pulse Ox 94 02/28/21 11:24
--- NOTE | 2021-02-28 16:40 | CHAPLAIN ---
Colleen was up in the chair when I visited. She said she walked with PT today and did some stairs but still needs more PT before she goes home. She said her son from [place], [place] has offered to come stay with her when she goes home, but he works from home and would need the internet and she doesn't have that in her house. She also has friends and neighbors she can call, Colleen said, but she seems hesitant to bother people. She told me one time her kids came to visit her, did think she looked well and called the ambulance to come to the hospital, but she refused to get in the ambulance.
[2021-02-28] MEDS: Milk of Magnesia 30 ML CUP PO (18:07)
[2021-02-28] MEDS: Gabapentin 300 MG CAP 600 MG PO (21:38)
[2021-03-01 00:03] VITALS: BP 175/82; PULSE 84; RESP 20; TEMP 36.7; O2SAT 95
[2021-03-01] MEDS: Hydrocortisone SOD SUC. 100 MG VIAL 50 MG IVP ×2 (00:21→07:59)
[2021-03-01] MEDS: Normal Saline Flush 10 ML SYR IVP ×3 (00:27→16:41)
--- NOTE | 2021-03-01 03:12 | NUR.NOTE ---
PT reports pain with walking. As she is comfortable in bed she says she doesnt neet anything for the pain. Nursing Note:
[2021-03-01] MEDS: Acetaminophen 500 MG TAB 1000 MG PO ×3 (05:08→21:50)
[2021-03-01 05:36] LABS: Abs Immature Grans 0.11 10^3/uL (0.0-0.06); Absolute Basophil Count 0.02 10^3/uL (0.0-0.2); Basophils % 0.1; HCT 37.4 % (36.0-46.0); HGB 12.2 g/dL (11.2-15.7); Immature Grans % 0.6; Lymphocytes % 6.8; MCH 27.7 pg (27.0-33.0); MCHC 32.6 % (32.0-36.0); MPV 10.4 fL (8.0-11.0); Monocytes % 8.4; Neutrophils % 84.1; Nucleated RBC 0 %; Platelet Count 292 10^3/uL (130-400); RDW 13.3 % (11.7-14.6); RDW-SD 41.5 fL; WBC 18.55 10^3/uL (4.4-10.8)
[2021-03-01 05:42] LABS: Absolute Lymphocyte Count 1.26 10^3/uL (1.2-3.4); Absolute Monocyte Count 1.56 10^3/uL (0.1-0.8)
[2021-03-01 05:55] LABS: Anion Gap 7.4 mmol/L (3-11); BUN 14 mg/dL (7-18); CO2 30.6 mmol/L (21.0-32.0); Calcium 8.9 mg/dL (8.5-10.1); Chloride 96 mmol/L (98-107); Estimated GFR 52.69 (mL/min/1.73m2); Glucose 124 mg/dL (74-106); Magnesium 2.3 mg/dL (1.8-2.4); Potassium 3.9 mmol/L (3.5-5.1); Sodium 134 mmol/L (136-145)
[2021-03-01 06:55] LABS: Diff Comment Agrees w/ Instrument; RBC Morphology Normal
[2021-03-01 07:48] VITALS: BP 147/78; PULSE 86; RESP 14; TEMP 36.8; O2SAT 96
[2021-03-01] MEDS: Aspirin E.C. 81 MG TABEC PO (07:58)
[2021-03-01] MEDS: Salt Supplement (BUFFERED) TAB 1 TAB PO ×2 (07:58→19:53)
[2021-03-01] MEDS: Multivitamin TAB 1 TAB PO (07:58)
[2021-03-01] MEDS: Metoprolol CR 100 MG TABCR PO (07:58)
[2021-03-01] MEDS: predniSONE 5 MG TAB PO (07:58)
[2021-03-01] MEDS: amLODIPine 5 MG TAB PO (07:58)
[2021-03-01] MEDS: Gabapentin 300 MG CAP PO ×2 (07:58→13:41)
[2021-03-01] MEDS: Omeprazole 20 MG CAPCR PO (07:58)
--- NOTE | 2021-03-01 10:15 | PT.INTREAT ---
Date of service: 03/01/21 Time of Service: 08:50 PT Notes Visit Reasons: L Hip Fracture (traumatic) Inpatient Physical Therapy Treatment Note [facility] Date: 03/01/2021 PRECAUTIONS: WBAT on left LE with AD and fall SUBJECTIVE: Stated she is ready to do a waltz and play baseball when sitting in her chair, although indicated she was not as able as she thought once standing on her legs. Indicated she wanted me to call her Colleen because Mrs. Rodriguez sounds too old. OBJECTIVE: PAIN: Discomfort and weakness with ambulation, but tolerable. BED MOBILITY/TRANSFERS Up in chair when I arrived to room. Sit-stand: CGA of 2 and verbal cueing Stand-sit: CGA of 1 and verbal cueing GAIT Assistive Device: FWW Weight bearing: WBAT on left Assist: CGA and verbal cueing Distance: 6ft recliner to commode where she was able to have a bowel movement and help clean herself. 12ft commode to door and back to chair. W/C follow with ambulation from commode back to recliner. THEREX: AP x 20 reps, GS, LAQs and seated hip abd/adduction for 10 reps each. ASSESSMENT: Great attitude with walking and exercises. PLAN: Continue to focus on strengthening and improved functional mobility for ADL function. TREATMENT CODE/TIME: [id number], [id number], 8:50 to 9:15 (25')
[2021-03-01] MEDS: Enoxaparin 30 MG/0.3 ML SYR SC (11:40)
--- NOTE | 2021-03-01 14:10 | W.PM.PROGNOT ---
Date of Service Date of service: 03/01/21 Time of Service: 14:10 Assessment and Plan Assessment and plan (1) Fracture of hip, left, closed: Start date: 03/01/21 Start time: 14:10 Status: Acute Assessment and plan: POD 2, doing well, pain to bilateral legs; contributes it to OA. Patient given nucyenta after became very confused. Dcd and roxicodone ordered instead per orthro enoxaparin, wt bearing with assitive device. as tolerated PT pain management- tylenol scheduled, along with roxicodone incentive spirometry Bowel regimen. Bladder scan Qualifiers: Encounter type: initial encounter Qualified Code(s): S72.002A - Fracture of unspecified part of neck of left femur, initial encounter for closed fracture (2) Pelvic fracture: Start time: 14:10 Status: Acute Assessment and plan: Orthopedics following. nonoperative management. Pain cont,. Qualifiers: Encounter type: initial encounter Pelvic bone location: other part of pelvis Fracture type: closed Qualified Code(s): S32.89XA - Fracture of other parts of pelvis, initial encounter for closed fracture (3) SIADH (syndrome of inappropriate ADH production): Start date: 03/01/21 Start time: 14:10 Assessment and plan: Continue salt tablets (4) Paroxysmal atrial fibrillation with rapid ventricular response: Start date: 03/01/21 Start time: 14:10 Assessment and plan: Not on anticoagulation. Last echo in 09/2019: LVEF 60%, nml wall motion, RVSP 22.4 mmhg, moderate aortic regurg, mild mitral regurg. Patient is not on tele as the description of the fall appears to be mechanical. 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 Will provide stress dose steroids along with home dose steroids (6) Hypertension: Start date: 03/01/21 Start time: 14:10 Status: Chronic Assessment and plan: BP has improved since starting amlodipine. Will continue to monitor Continue home toprol XL - Qualifiers: Hypertension type: primary hypertension Qualified Code(s): I10 - Essential (primary) hypertension (7) DVT prophylaxis: Start date: 03/01/21 Start time: 14:10 Status: Acute Assessment and plan: Started on enoxaparin subcu (8) Discharge planning issues: Start date: 03/01/21 Start time: 14:10 Status: Acute Assessment and plan: DNR/DNI as confirmed in conversation with the patient as well as documented by PCP and per COLST form 12/26/20. case management following. anticipate retirement facility discharge. discussed with Dr Basilio Subjective Subjective Patient reports: other Interval history since last seen: Patient sitting up in chair. More confused today. She was given nucyenta d/t c/o bilateral leg pain which she contributes to OA. However she just now is having a reaction of wanting to shoot people and freaking out per nursing. During examination and assessment she was pleasant. Will give dose of seroquel. This likely is drug induced. Will change to roxicodone with Tylenol. She has since calmed downed.SNIF recommended. Exam Narrative Exam Narrative: General: Pleasant elderly female sitting up in chair denies pain, A&Ox3, appears comfortable. Neurological: A&Ox3, no focal deficits, forgetful Psychiatric: appropriate affect, cooperative Skin: Visible skin intact HEENT: Atraumatic, normocephalic, EOMI, dry MM, clear oropharynx, no submandibular or cervical lymphadenopathy, no goiter or JVD Cardiovascular: RRR, no m/r/g Lungs: CTAB anteriorly Gastrointestinal: soft, nontender, nondistended Genitourinary: voiding in depends Extremities: no edema BLE's, left lower extremity with surgical bandage, some edema to surgical site otherwise C/D/I. Objective Last Vital Signs Temp 36.8 C 03/01/21 07:48 Pulse 86 03/01/21 07:48 Resp 14 03/01/21 07:48 BP 147/78 H 03/01/21 07:48 Pulse Ox 96 03/01/21 07:48 Laboratory Results - last 24 hr 03/01/21 03/01/21 05:07 05:07 WBC 18.55 H RBC 4.40 Hgb 12.2 Hct 37.4 MCV 85.0 MCH 27.7 MCHC 32.6 RDW 13.3 Plt Count 292 MPV 10.4 Immature Gran % 0.6 Neutrophils % 84.1 Lymphocytes % 6.8 Monocytes % 8.4 Eosinophils % 0.0 Basophils % 0.1 Nucleated RBC % 0 Absolute Neutrophils 15.60 H Absolute Lymphocytes 1.26 Absolute Monocytes 1.56 H Absolute Eosinophils 0.00 Absolute Basophils 0.02 RBC Morphology Normal Sodium 134 L Potassium 3.9 Chloride 96 L Carbon Dioxide 30.6 Anion Gap 7.4 BUN 14 Creatinine 1.0 Estimated GFR/1.73 m2 52.69 Glucose 124 H Calcium 8.9 Magnesium 2.3
[2021-03-01] MEDS: QUEtiapine 25 MG TAB PO ×2 (14:21→21:50)
[2021-03-01] MEDS: oxyCODONE 5 MG TAB 2.5 MG PO (15:28)
[2021-03-01 15:46] VITALS: BP 145/80; PULSE 91; RESP 16; TEMP 36.8; O2SAT 96
[2021-03-01] MEDS: Mirtazapine 15 MG TAB 7.5 MG PO (16:41)
[2021-03-01] MEDS: Haloperidol 5 MG/ML VIAL 4 MG IM/IV (16:41)
[2021-03-01 17:08] VITALS: BP 130/72; PULSE 84; RESP 14; TEMP 36.5; O2SAT 95
[2021-03-01] MEDS: Docusate Sodium 100 MG CAP PO (19:53)
[2021-03-01] MEDS: Gabapentin 300 MG CAP 600 MG PO (21:50)
[2021-03-02 00:33] VITALS: BP 157/75; PULSE 87; RESP 17; TEMP 37.2; O2SAT 96
[2021-03-02] MEDS: oxyCODONE 5 MG TAB 2.5 MG PO ×2 (00:44→08:26)
[2021-03-02] MEDS: Acetaminophen 500 MG TAB 1000 MG PO ×3 (05:56→21:52)
[2021-03-02 06:38] LABS: Magnesium 2.2 mg/dL (1.8-2.4); NT-proBNP 412 pg/mL (<300)
[2021-03-02] MEDS: Gabapentin 300 MG CAP PO (09:00)
[2021-03-02] MEDS: Aspirin E.C. 81 MG TABEC PO (09:00)
[2021-03-02] MEDS: Docusate Sodium 100 MG CAP PO ×2 (09:00→19:30)
[2021-03-02] MEDS: Salt Supplement (BUFFERED) TAB 1 TAB PO ×2 (09:00→19:30)
[2021-03-02] MEDS: predniSONE 5 MG TAB PO (09:00)
[2021-03-02] MEDS: Multivitamin TAB 1 TAB PO (09:00)
[2021-03-02] MEDS: Omeprazole 20 MG CAPCR PO (09:01)
[2021-03-02] MEDS: Metoprolol CR 100 MG TABCR PO (09:01)
[2021-03-02] MEDS: amLODIPine 5 MG TAB PO (09:01)
--- NOTE | 2021-03-02 11:28 | PT.INTREAT ---
Date of service: 03/02/21 Time of Service: 10:00 PT Notes Visit Reasons: L Hip Fracture (traumatic) Inpatient Physical Therapy Treatment Note [facility] Date: 03/02/2021 PRECAUTIONS: WBAT on left LE with FWW SUBJECTIVE: Stated she is not feeling like dancing today. Feeling very weak today. Just not feeling right. Hip pain better post ambulation and getting back in recliner. OBJECTIVE: PAIN: Stated hip pain was 5 out of 10 prior to ambulation, less after walking once in recliner. BED MOBILITY/TRANSFERS Up in chair upon my arrival. Sit-stand: Min assist of 2 Stand-sit: CGA of 2 GAIT Assistive Device: FWW Weight bearing: WBAT on left Assist: CGA and assist with advancing both feet upon initial few steps. Able to better advance right foot after a few steps, but difficulty moving left foot forward throughout session today. Distance: Only able to walk approximately 6 ft today, stating she just can't make herself move. Deviation: Initially was walking with right foot turned out today, but better once verbally cued. THEREX: AP x 15, GS x 10, LAQs x 10, seated hip flexion with assist x 10 and seated hip abd/ add x 10 ASSESSMENT: Definitely not as alert today and appeared very weak. Did seem a bit more awake post ther ex and ambulation. PLAN: Continue to focus on improved functional mobility and strengthening for better ADL function. TREATMENT CODE/TIME: 26962/ [id number], 10:00 to 10:10 for ther ex and 10:35 to 10:45 for ambulation with nursing assistance.
--- NOTE | 2021-03-02 13:41 | PGE_ITS ---
Date of Service Date of service: 03/02/21 Time of Service: 13:42 Assessment and Plan Assessment and plan (1) Fracture of hip, left, closed: Status: Acute Assessment and plan: POD 3, doing well, pain better managed enoxaparin, weight bearing with assistive device. PT pain management- tylenol scheduled, along with roxicodone incentive spirometry Bowel regimen. Bladder scan as needed. Qualifiers: Encounter type: initial encounter Qualified Code(s): S72.002A - Fracture of unspecified part of neck of left femur, initial encounter for closed fracture (2) Pelvic fracture: Status: Acute Assessment and plan: Orthopedics following. nonoperative management. Pain controlled. Qualifiers: Encounter type: initial encounter Fracture type: closed Pelvic bone location: other part of pelvis Qualified Code(s): S32.89XA - Fracture of other parts of pelvis, initial encounter for closed fracture (3) SIADH (syndrome of inappropriate ADH production): Assessment and plan: Continue salt tablets (4) Paroxysmal atrial fibrillation with rapid ventricular response: Assessment and plan: Not on anticoagulation. Last echo in 09/2019: LVEF 60%, nml wall motion, RVSP 22.4 mmhg, moderate aortic regurg, mild mitral regurg. Patient is not on tele as the description of the fall appears to be mechanical. 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 Will provide stress dose steroids along with home dose steroids (6) Hypertension: Status: Chronic Assessment and plan: BP has improved since starting amlodipine. Will continue to monitor Continue home toprol XL - Qualifiers: Hypertension type: primary hypertension Qualified Code(s): I10 - Essential (primary) hypertension (7) DVT prophylaxis: Status: Acute Assessment and plan: Started on enoxaparin subcu (8) Discharge planning issues: Status: Acute Assessment and plan: DNR/DNI as confirmed in conversation with the patient as well as documented by PCP and per COLST form 12/26/20. case management following. anticipate half-way facility discharge. discussed with Dr Basilio Subjective Subjective Patient reports: no new complaints, pain is less, tolerating liquids well, tolerating a regular diet, voiding w/o difficulty and afebrile; denies shortness of breath Exam Const General: cooperative and no acute distress HENMT Head: normocephalic and atraumatic Mouth: moist mucous membranes Eyes Conjunctivae: normal conjunctivae Sclera: normal sclerae Neck Neck: supple Resp Auscultation: clear to auscultation bilaterally Cardio Rate: regular rate Rhythm: regular rhythm GI Palpation: soft and nontender Skin Lesions: lesion noted (surgical wound not visualized, dressing intact and clean, no erythema surro) Neuro General: patient alert, patient awake, patient oriented x3 and tone normal Extrem General: no edema Psych Appearance: grossly normal Mental Status: mental status grossly normal Speech and Movement: speech and movement normal Objective Last Vital Signs Temp 37.2 C 03/02/21 00:33 Pulse 87 03/02/21 00:33 Resp 17 03/02/21 00:33 BP 157/75 H 03/02/21 00:33 Pulse Ox 96 03/02/21 00:33 Laboratory Results - last 24 hr 03/02/21 05:32 Magnesium 2.2 NT-Pro-B Natriuret Pep 412 H
[2021-03-02] MEDS: Enoxaparin 30 MG/0.3 ML SYR SC (13:50)
--- NOTE | 2021-03-02 14:49 | W.PM.PROGNOT ---
Date of Service Date of service: 03/02/21 Time of Service: 14:49 Assessment and Plan Assessment and plan (1) Fracture of hip, left, closed: Status: Acute Assessment and plan: 85-year-old female postop day #3 status post left hip nail; history of right sprain in January 2021 and right valgus impacted hip fracture treated with cannulated screws on 05/04/2019. Making appropriate progress postoperatively Pain control-Multimodal Continue physical therapy weightbearing as tolerated with assist device Recommend Lovenox 30 mg daily for 30 days as DVT prophylaxis given relatively high risk immobility status and likely discharge to nursing facility Discharge when medical appropriate Follow-up with Dr. Freire outpatient [facility] in 2 to 3 weeks Discussed with primary medical team Qualifiers: Encounter type: initial encounter Qualified Code(s): S72.002A - Fracture of unspecified part of neck of left femur, initial encounter for closed fracture Subjective Subjective Patient reports: no new complaints Interval history since last seen: Comfortable at rest Exam Narrative Exam Narrative: Resting in hospital chair No acute distress Dressings clean dry intact Thigh compartments soft Tolerates passive hip range of motion without issue. Unable to maintain straight leg raise Objective Last Vital Signs Temp 99.0 F 03/02/21 00:33 Pulse 87 03/02/21 00:33 Resp 17 03/02/21 00:33 BP 157/75 H 03/02/21 00:33 Pulse Ox 96 03/02/21 00:33 Laboratory Results - last 24 hr 03/02/21 05:32 Magnesium 2.2 NT-Pro-B Natriuret Pep 412 H
[2021-03-02 15:05] VITALS: BP 149/71; PULSE 86; RESP 14; TEMP 37.1; O2SAT 95
[2021-03-02] MEDS: Mirtazapine 15 MG TAB 7.5 MG PO (18:00)
[2021-03-02] MEDS: QUEtiapine 25 MG TAB PO (21:52)
[2021-03-02] MEDS: Gabapentin 300 MG CAP 600 MG PO (21:52)
[2021-03-02 23:13] VITALS: BP 179/78; PULSE 91; RESP 16; TEMP 36.8; O2SAT 95
[2021-03-02 23:27] VITALS: BP 160/70; TEMP 37.4
[2021-03-03] MEDS: Acetaminophen 500 MG TAB 1000 MG PO (06:02)
[2021-03-03 07:40] LABS: NT-proBNP 327 pg/mL (<300)
[2021-03-03 07:41] VITALS: BP 136/68; PULSE 90; RESP 18; TEMP 37; O2SAT 96
--- NOTE | 2021-03-03 08:15 | PDOC.CMPRO ---
Care Management Progress Note S/O: Colleen was sitting up in her chair when CM met with her. She was pleasant and easily engaged in conversation. She reported her son could come stay with her if needed, but was agreeable to SNF if recommended. She reported previously, she has rehabbed at [facility]. Anticipate she will remain at [facility] over the weekend and be re-evaluated for discharge on Wednesday. CM continues to follow. A: 85 year old female admitted to [facility] 02/27/20 for L Hip Fracture P: Colleen is agreeable to SNF, if recommended for discharge. CM faxed referrals to [facility] and [facility] per patient request. Anticipate Colleen will either return home with home health and her son's support on Wednesday, or transfer to SNF dependent on progress in mobility. CM continues to follow.
[2021-03-03] MEDS: Ondansetron O.D.T. 4 MG TABEF PO (08:52)
[2021-03-03] MEDS: amLODIPine 5 MG TAB PO (09:16)
[2021-03-03] MEDS: predniSONE 5 MG TAB PO (09:16)
[2021-03-03] MEDS: Omeprazole 20 MG CAPCR PO (09:16)
[2021-03-03] MEDS: Metoprolol CR 100 MG TABCR PO (09:17)
[2021-03-03] MEDS: Aspirin E.C. 81 MG TABEC PO (09:17)
[2021-03-03] MEDS: Gabapentin 300 MG CAP PO (09:17)
[2021-03-03] MEDS: Salt Supplement (BUFFERED) TAB 1 TAB PO (09:17)
[2021-03-03] MEDS: Multivitamin TAB 1 TAB PO (09:17)
--- NOTE | 2021-03-03 09:28 | W.PM.DS.N ---
Date of service: 03/03/21 Time of Service: 09:28 DS: Diagnosis Discharge Diagnosis (1) Fracture of hip, left, closed: Status: Acute (2) Pelvic fracture: Status: Acute (3) SIADH (syndrome of inappropriate ADH production): (4) Paroxysmal atrial fibrillation with rapid ventricular response: (5) Adrenal insufficiency: (6) Hypertension: Status: Chronic Discharge Plan Disposition Patient Disposition: SNF (LEVEL 1) [facility] Condition: Stable Discharge Details Reason For Visit: L Hip Fracture (traumatic) Admit Date/Time: 02/26/21 23:25 Admit Provider: Yesenia Basilio Attending Provider: Yesenia Basilio Primary Care Provider: Aby Salvador Hospital Course Hospital Course: This is an 85 year old female with past medical history of paroxysmal Afib/ flutter, not on anticoagulation, hypertension, SIADH, adrenal insufficiency due to chronic steroid use for PMR, osteoporosis, Alzheimer's dementia (moderate), who was brought to [facility] ED by ambulance after sustaining a mechanical fall at home, landing on her buttocks. The patient cannot tell me the circumstances of the fall at the time of my exam other than that it happened at 6 pm, but to the ED provider she had stated that she had tripped while walking down the hallway. She reports left lower extremity pain and her xray shows a left hip fracture. She also has age-indeterminate r-sided superior and inferior pubic ramus fractures, but the patient does not report discomfort in this area. Hospitalist admission for surgical repair. Post operative course complicated with acute delirium which responded to treatment with seroquel. She has been re-ambulated with PT and very slow to progress. she is not safe for discharge to home. referrals have been placed and she has been accepted to [facility]hab. discharge discussed with Dr Basilio Home Meds and New Rx's Prescriptions: New Acetaminophen [Tylenol] 1,000 mg PO Q8H Qty: 0 RF: 0 quetiapine 25 mg Tablet 25 mg PO HS Qty: 60 RF: 0 quetiapine 25 mg Tablet 25 mg PO BID PRN PRNQty: 0 RF: 0 amlodipine 5 mg Tablet 5 mg PO DAILY Qty: 30 RF: 0 gabapentin 300 mg Capsule 600 mg PO HS Qty: 0 RF: 0 gabapentin 300 mg Capsule 300 mg PO DAILY PRN PRN (Reason: Headache) Qty: 0 RF: 0 mirtazapine 15 mg Tablet 7.5 mg PO DAILY@1700 Qty: 30 RF: 0 Continued Centrum Silver Women 8 mg iron-400 mcg-300 mcg tablet 1 tab PO DAILY RF: 0 omeprazole 20 mg capsule,delayed release(DR/EC) 20 mg PO DAILY Qty: 90 RF: 3 prednisone 5 mg tablet 5 mg PO DAILY Qty: 90 RF: 3 metoprolol succinate 100 mg tablet extended release 24 hr 100 mg PO DAILY Qty: 90 RF: 4 sodium chloride 1 gram tablet 1,000 mg PO DAILY Qty: 90 RF: 3 coenzyme Q10 [CoQ-10] 100 mg Capsule 200 mg PO DAILY RF: 0 aspirin 81 mg Tablet,Delayed Release (Dr/Ec) 81 mg PO DAILY Qty: 100 RF: 0 Changed gabapentin 300 mg capsule 300 mg PO DAILY Qty: 120 RF: 11 Discharge Instructions Instructions: ORIF of Hip Fracture (DC) Stand Alone Forms: Nursing Discharge Form Referrals: Aby Salvador NP [Primary Care Provider] - (on discharge from rehab, rehab follow up per protocol. ) Activity:: Activity as Tolerated Equipment/Supplies:: Walker Diet:: As Tolerated Discharge Orders Discharge Orders: Discharge Order (Routine); Ordered 03/03/21 Ordered By: Ira Francis Discharge Data Discharge Date/Time-TO BE ENTERED AT DEPARTURE: 03/03/21 13:15 DS: Summary Time Spent with Patient providing and/or coordinating discharge services: Greater than 30 minutes Status at Discharge Functional status at discharge: uses cane/walker Overall status at discharge: patient is not back to baseline Mental Status: mental status grossly normal Speech and Movement: speech and movement normal Mood: congruent mood Affect: normal affect Exam Const General: cooperative and no acute distress [facility] Head: normocephalic and atraumatic Mouth: moist mucous membranes Eyes Conjunctivae: normal conjunctivae Sclera: normal sclerae Neck Neck: supple Resp Auscultation: clear to auscultation bilaterally Cardio Rate: regular rate Rhythm: regular rhythm GI Palpation: soft and nontender Skin Lesions: lesion noted (surgical wound not visualized, dressing intact and clean, no erythema surro) Neuro General: patient alert, patient awake, patient oriented x3 and tone normal Extrem General: no edema Psych Appearance: grossly normal Mental Status: mental status grossly normal Speech and Movement: speech and movement normal Mood: congruent mood Affect: normal affect DS: Data Vitals/I&O Vitals and I&O: Vital Signs Temperature 37.0 C 03/03/21 07:41 Temperature Source Tympanic 03/03/21 07:41 Pulse 90 03/03/21 07:41 Pulse Rhythm Regular 03/03/21 04:46 Pulse 86 02/26/21 22:35 Respiratory Rate 18 03/03/21 07:41 Respiratory Effort Non-Labored 03/03/21 04:46 Respiratory Depth Normal 03/03/21 04:46 Respiratory Pattern Normal 03/03/21 04:46 Blood Pressure 136/68 03/03/21 07:41 Blood Pressure Mean 114 02/26/21 22:33 Blood Pressure Position Supine 02/26/21 22:19 Pulse Oximetry 96 03/03/21 07:41 Respiratory End-tidal CO2 36 02/27/21 14:08 Oxygen Delivery Method Room Air 03/03/21 07:41 Oxygen Flow Rate 0 03/03/21 07:41 Pain Level 0 03/03/21 07:41 Comment 03/01/21 15:28 Intake & Output 03/02/21 03/02/21 03/03/21 11:59 23:59 11:59 Intake Total 240 / 900 660 / 900 Output Total 700 / 1950 1250 / 1950 200 / 200 Balance -460 / -1050 -590 / -1050 -200 / -200 Weight 59.3 kg Intake: Oral 240 / 900 660 / 900 Output: Urine 700 / 1950 1250 / 1950 200 / 200 Other: Urine Color Yellow Yellow Yellow Urine Appearance Clear Clear Clear Urine Odor Normal Normal Comment Patient did not void enough to measure Voiding Methods Bedside Commode Toilet Bedside Commode Data Completed and Pending Labs on day of discharge: Labs from last 24 hours 03/03/21 06:55 NT-Pro-B Natriuret Pep 327 H PFSH All Active Problems (Updated 03/01/21 @ 15:02 by Latrice Aguilera NP) Hypertension (Chronic) Pelvic fracture (Acute) Discharge planning issues (Acute) DVT prophylaxis (Acute) Fracture of hip, left, closed (Acute 02/26/21) Fall (Acute) Right ankle sprain (Acute) Advance directive indicates patient wish for [id number] resuscitation status (Acute) Elevated BP without diagnosis of hypertension (Acute) Memory loss (Acute) Migraine headache without aura (Acute) Generalized weakness (Acute) Spinal stenosis (Acute) Atrial flutter (Chronic) paroxysmal, Atrial fib/flutter, rate controlled, not on anticoagulation. Zio Patch ordered. Premature beats (Chronic) 10/29/10 H/O multiples pvc's Osteoporosis (Chronic) Irritable colon (Chronic) Celiac disease (Chronic 06/12/13) Medical History Abnormal mammography (03/27/13) Adrenal insufficiency Ataxia Chronic headache Closed head injury Cortical cataract of left eye Diverticulosis of colon without diverticulitis DVT (deep venous thrombosis) s/p hemorrhoid banding Epiretinal membrane (ERM) of left eye Epiretinal membrane (ERM) of right eye GERD (gastroesophageal reflux disease) History of pelvic fracture Hypokalemia Hyponatremia Inflammation of Sacroiliac Joint Lumbosacral radiculopathy due to degenerative joint disease of spine Nuclear sclerotic cataract of left eye Osteoarthritis Pancreatic lesion Paroxysmal atrial fibrillation with rapid ventricular response PMR (polymyalgia rheumatica) Polymyalgia rheumatica (08/14/14) Post concussive syndrome Pyloric ulcer associated with Helicobacter pylori (01/21/05) Right lumbar radiculopathy (07/05/15) SIADH (syndrome of inappropriate ADH production) Urine sodium 56. Urine osmolality 460 Will need f/u lab and continued fluid restriction. Cause at this point is idiopathic. SIRS (systemic inflammatory response syndrome) Subconjunctival hemorrhage of left eye Trochanteric bursitis of both hips Surgical History Closed right hip fracture (05/03/19) S/P ORIF with cannulated screw fixation on 05/04/2019 Colonoscopy - MAC Hemorrhoidal Banding (04/27/17) Status post cataract extraction and insertion of intraocular lens of left eye (05/02/18) Status post cataract extraction and insertion of intraocular lens of right eye (05/16/18) Status post cholecystectomy Family History Mother No problems noted. Father Neoplasm PANCREATIC Sister Neoplasm BREAST/THYROID Social History Smoking/Tobacco Use Status: Never Smoking risk assessment performed?: Yes Alcohol Intake: never Drug use: Never Substance use type: does not use Counseling given: No Counseling provided: none Caregiver/Support person: Yes Household members: caregiver Housing: house Number of Children: 3 number of grandchildren: 5 Communication Needs: None Do you need help understanding health information?: Never current occupation: [employer] Pets and animals: No Sexually active: No Do you think of yourself as: straight/heterosexual Current gender identity: female What is your relationship status?: How often do you talk on the phone with friends or family?: three or more times per week How often do you get together with friends or relatives?: three or more times per week How often do you attend restorationist or episcopalian services?: decline to answer Do you belong to any clubs or organized social groups?: no Panel score (0-1 are the most socially isolated patients): 1 What type of physical activity do you participate in: none Frequency: does not exercise Jennifer/Mu-Ism: Druze Special jennifer needs: No Seatbelt use: always Helmet use: No Drive intox or ride w/intox automation driver: No Do you feel safe at home: Yes Do you feel safe in your relationship?: Yes
[2021-03-03 09:43] LABS: Source Nasal/Nares
--- NOTE | 2021-03-03 10:04 | PDOC.CMDIS ---
- If Service Date Differs Date of service: 03/03/21 Time of Service: 12:51 LACE Index Scoring Tool - Questions: Length of Stay (in days): 4 - 6 Acuity (Admit via E.D.?): Yes E.D. Visits: 1 - Answers: Total Score: 8 Risk of Readmission: Low Risk Care Management Discharge Reason for Hospitalization: L HIP Fracture Discharge Plan: Colleen will discharge to [facility] for continued rehab post hospitalization prior to returning home. She will transport via [facility]. Patient/Family Education Needs: Review discharge instructions, discuss Ask Me Three. Services Needed at Discharge: Assisted Facility ([facility] ), Transportation ([facility] )
[2021-03-03 10:38] LABS: COVID-19 PCR Negative (Negative)
--- NOTE | 2021-03-14 08:37 | PT.INDS ---
Date of service: 03/14/21 PT Notes Visit Reasons: L Hip Fracture (traumatic) Physical Therapy Inpatient Discharge Summary Date: 03/14/2021 Dates of Service: 02/28/2021 through 03/02/2021 This is a clinical summary of care provided for the duration of dates listed above. No charge was made in the completion of this documentation. Referring Doctor: Sagar Freire MD PT Orders: PT CONSULT: Limited ability. WBAT BLUE with assist device Precautions: Fall. Standard. WBAT on L LE with AD. Patient Profile/Admitting Diagnosis: Colleen is a 85-year-old female with left displaced basicervical intertrochanteric hip fracture and is S/P L hip intramedullary nailing on postoperative day 1. PMHX: All Active Problems (Updated 02/27/21 @ 01:22 by Yesenia Basilio MD) Hypertension (Chronic) Pelvic fracture (Acute) Discharge planning issues (Acute) DVT prophylaxis (Acute) Fracture of hip, left, closed (Acute) Fall (Acute) Right ankle sprain (Acute) Advance directive indicates patient wish for [id number] resuscitation status (Acute) Elevated BP without diagnosis of hypertension (Acute) Memory loss (Acute) Migraine headache without aura (Acute) Generalized weakness (Acute) Spinal stenosis (Acute) Atrial flutter (Chronic) paroxysmal, Atrial fib/flutter, rate controlled, not on anticoagulation. Zio Patch ordered. Premature beats (Chronic) 10/29/10 H/O multiples pvc's Osteoporosis (Chronic) Irritable colon (Chronic) Celiac disease (Chronic 06/12/13) Medical History Abnormal mammography (03/27/13) Adrenal insufficiency Ataxia Chronic headache Closed head injury Cortical cataract of left eye Diverticulosis of colon without diverticulitis DVT (deep venous thrombosis) s/p hemorrhoid banding Epiretinal membrane (ERM) of left eye Epiretinal membrane (ERM) of right eye GERD (gastroesophageal reflux disease) History of pelvic fracture Hypokalemia Hyponatremia Inflammation of Sacroiliac Joint Lumbosacral radiculopathy due to degenerative joint disease of spine Nuclear sclerotic cataract of left eye Osteoarthritis Pancreatic lesion Paroxysmal atrial fibrillation with rapid ventricular response PMR (polymyalgia rheumatica) Polymyalgia rheumatica (06/23/15) Post concussive syndrome Pyloric ulcer associated with Helicobacter pylori (01/21/05) Right lumbar radiculopathy (07/05/15) SIADH (syndrome of inappropriate ADH production) Urine sodium 56. Urine osmolality 460 Will need f/u lab and continued fluid restriction. Cause at this point is idiopathic. SIRS (systemic inflammatory response syndrome) Subconjunctival hemorrhage of left eye Trochanteric bursitis of both hips Surgical History Closed right hip fracture (05/03/19) S/P ORIF with cannulated screw fixation on 05/04/2019 Colonoscopy - MAC Hemorrhoidal Banding (04/27/17) Status post cataract extraction and insertion of intraocular lens of left eye (05/02/18) Status post cataract extraction and insertion of intraocular lens of right eye (05/16/18) Status post cholecystectomy Social History/Home Situation: Patient is not a reliable historian. Will check with care management regarding home situation and/resources. Equipment Owned/DME: Patient reports that she has a FWW. Subjective: NT. See most recent [employer] notes. Objective: General Observation: NT. See most recent [employer] notes. Mental Status: NT. See most recent [employer] notes. Pain: NT. See most recent [employer] notes. Vital Signs: NT. See most recent [employer] notes. ROM: Right Upper Extremity: Shoulder Flexion WFL. Shoulder abduction WFL. Elbow flexion WFL. Wrist flexion WFL. Functional opening and closing of hand WFL. Left Upper Extremity: Shoulder Flexion WFL. Shoulder abduction WFL. Elbow flexion WFL. Wrist flexion WFL. Functional opening and closing of hand WFL. Right Lower Extremity: Hip flexion WFL. Hip abduction WFL. Knee flexion WFL. Ankle dorsiflexion to neutral only. Ankle plantarflexion WFL. Left Lower Extremity: Hip flexion only allows about 20 degrees due to pain. Hip abduction allows only about 10 degrees due to pain. Knee flexion allows up to 90 degrees. Ankle dorsiflexion to neutral only. Ankle plantarflexion WFL. Strength: Right Upper Extremity: Shoulder flexors 4-/5. Shoulder abductors 4-/5. Elbow flexors 4-/5. Elbow extensors 4-/5. [employer] strong. Left Upper Extremity: Shoulder flexors 4-/5. Shoulder abductors 4-/5. Elbow flexors 4-/5. Elbow extensors 4-/5. [employer] strong. Right Lower Extremity: Hip flexors 2-/5. Hip abductors 2-/5. Knee flexors 3-/5. Knee extensors 3-/5. Ankle dorsiflexors 3-/5. Ankle plantarflexors 4-/5. Left Lower Extremity: Hip flexors 4-/5. Hip abductors 4-/5. Knee flexors 4-/5. Knee extensors 4-/5. Ankle dorsiflexors 4-/5. Ankle plantarflexors 3+/5. Bed Mobility/Transfers: Rolling minimal assist of one Supine to sit with minimal assist with moderate cues for safe/correct technique Sit to stand with mod assist with moderate cues for safe/correct technique Stand to sit with contact-guard assist with moderate cues for safe/correct technique Bed to bedside commode with minimal assist with moderate cues for safe/correct technique Bed to reclining chair with minimal assist of two with moderate cues for safe/correct technique Gait: Instructed patient with level surface ambulation of 6 feet to 30 feet requiring minimal assist of 2 . Beth decreased. Step height decreased on left. Step length decreased on left. Balance: Static Sitting: Normal Dynamic Sitting: Good Static Standing: Fair Dynamic Standing: Poor Assessment: Patient presents with clinical signs and symptoms consistent with current/admitting diagnoses that have resulted to mobility limitations, gait instability, generalized weakness, and overall ADL decline as demonstrated by the following impairment level findings: 1. Decreased strength to L LE major muscle groups 2. Impaired sitting/standing balance 3. Impaired activity tolerance 4. Limitation of joint range of motion in left hip and knee 5. Pain in left hip 6. Confusion Impairments are contributing to the following functional limitations: 1. Decline in bed mobility skills 2. Decline in transfer skills 3. Difficulty with ambulation without assistive device and physical assistance 4. Increased completion time for mobility ADL performance 5. Increased risk for falls 6. Difficulty with managing steps alone safely Goals: Goals X1 week 1. Supine-Sit independent NOT MET 2. Sit-Supine independent NOT MET 3. Sit-Stand independent NOT MET 4. Stand-Sit stand by assist with FWW NOT MET 5. Bed-Chair stand by assist with FWW NOT MET 6. Chair-Bed stand by assist with FWW NOT MET 7. Stand by assist gait on level surface with use of [] for at least [] feet without report of pain nor dyspnea NOT MET 8. Stand by assist with stair negotiation while holding onto [] rails for at least [] steps without report of pain nor dyspnea NOT MET 9. Good static and dynamic standing balance/tolerance NOT MET DISCHARGE RECOMMENDATIONS: [] Home with no services [] [] Home with services [specify] [] Home with outpatient PT [] [X] SNF for continued rehabilitation. Patient will benefit from [facility] for continued skilled physical therapy services in order to progress mobility level, strength, and balance in preparation for a safe discharge to home. [] Jail Care [] [] SNF versus LTC based on ability to participate and progress [] TREATMENT CODE/TIME: NC Thank you for the opportunity to participate in the care of this patient. Denise Ramirez PT, DPT, CLT [facility] [place], [place]
== END 2021-03-03 13:15 | disposition skilled nursing facility (03) | DRG 956 ==
LOC: ER 02-27 00:05 → MS 02-27 00:11
PROVIDERS: Nurse Practitioner Family; Student in an Organized Health Care Education/Training Program; Admitting Provider Internal Medicine; Emergency Provider Emergency Medicine; Visit Provider Internal Medicine
PROC: 0QS706Z Reposition Left Upper Femur with Intramedullary Internal Fixation Device, Open Approach (ICD-10-PCS; CPT 27245; principal; 2021-02-27 10:15)
DX: S72.142A Displaced intertrochanteric fracture of left femur, initial encounter for closed fracture (principal); S32.591A Other specified fracture of right pubis, initial encounter for closed fracture; E22.2 Syndrome of inappropriate secretion of antidiuretic hormone; E27.3 Drug-induced adrenocortical insufficiency; W01.0XXA Fall on same level from slipping, tripping and stumbling without subsequent striking against object, initial encounter; I48.0 Paroxysmal atrial fibrillation; M81.0 Age-related osteoporosis without current pathological fracture; K90.0 Celiac disease; K58.9 Irritable bowel syndrome, unspecified; G43.009 Migraine without aura, not intractable, without status migrainosus; K57.30 Diverticulosis of large intestine without perforation or abscess without bleeding; K21.9 Gastro-esophageal reflux disease without esophagitis; Z86.718 Personal history of other venous thrombosis and embolism; M54.17 Radiculopathy, lumbosacral region; M35.3 Polymyalgia rheumatica; T38.0X5A Adverse effect of glucocorticoids and synthetic analogues, initial encounter; I10 Essential (primary) hypertension; G30.9 Alzheimer's disease, unspecified; F02.80 Dementia in other diseases classified elsewhere, unspecified severity, without behavioral disturbance, psychotic disturbance, mood disturbance, and anxiety
CPT/HCPCS: 27245; 36415; 51702; 73552; 80048; 80053; 82306; 85027; 86850; 86900; 86901; 87635; 93005; 96374; 96375; 97110; 97162; 97530; 99214; 99222; 99285; 71045; 72170; 73501; 81003; 81015; 83735; 83880; 84484; 85025; 85610; 93010; 99223; 99232; 99233; 99239; J0131; J0360; J0690; J1630; J1650; J1720; J1885; J2001; J2405; J3010; J7042; J7512

== ENCOUNTER 2021-03-06 13:58 | Outpatient (REF) | payer MEDICARE, OTHER, SELFPAY ==
[2021-03-06 14:35] LABS: Abs Immature Grans 0.08 10^3/uL (0.0-0.06); Absolute Eosinophil Count 0.16 10^3/uL (0.0-0.7); Basophils % 0.1; Eosinophils % 1.1; HCT 30.6 % (36.0-46.0); HGB 9.8 g/dL (11.2-15.7); Immature Grans % 0.6; Lymphocytes % 5.2; MCH 27.8 pg (27.0-33.0); MCV 86.9 fL (80-95); MPV 10.5 fL (8.0-11.0); Monocytes % 6.2; Neutrophils % 86.8; Nucleated RBC 0 %; Platelet Count 360 10^3/uL (130-400); RBC 3.52 10^6/uL (3.93-5.22); RDW 14.1 % (11.7-14.6); RDW-SD 45.1 fL; WBC 14.12 10^3/uL (4.4-10.8)
[2021-03-06 14:37] LABS: Absolute Basophil Count 0.01 10^3/uL (0.0-0.2); Absolute Lymphocyte Count 0.73 10^3/uL (1.2-3.4); Absolute Monocyte Count 0.88 10^3/uL (0.1-0.8); Absolute Neutrophil Count 12.26 10^3/uL (1.2-6.7)
[2021-03-06 14:53] LABS: Anion Gap 7.9 mmol/L (3-11); BUN 17 mg/dL (7-18); CO2 26.1 mmol/L (21.0-32.0); CREATININE 0.9 mg/dL (0.55-1.02); Calcium 8.3 mg/dL (8.5-10.1); Chloride 103 mmol/L (98-107); Estimated GFR 59.51 (mL/min/1.73m2); Glucose 120 mg/dL (74-106); Sodium 137 mmol/L (136-145)
== END 2021-03-06 13:59 | disposition home or self-care (01) ==
LOC: LBN 13:58
PROVIDERS: Visit Provider Nurse Practitioner Family
DX: I48.0 Paroxysmal atrial fibrillation (principal); I10 Essential (primary) hypertension
CPT/HCPCS: 80048; 85025

== ENCOUNTER 2021-03-08 21:52 | Outpatient (REF) | payer MEDICARE, OTHER, SELFPAY ==
[2021-03-08 22:06] LABS: Bilirubin Negative (Negative); Blood Moderate (Negative); Clarity Sl Cloudy (Clear); Glucose Negative (Negative); Ketones Negative (Negative); Leukocyte Esterase Small (Negative); Nitrite Negative (Negative); Specific Gravity >= 1.030 (1.005-1.025); Urobilinogen 0.2 EU/dL (Up TO 0.2)
[2021-03-08 22:13] LABS: Bacteria Moderate HPF (Negative); Epithelial Cells Many HPF (Negative); WBC 20-50 HPF (0-5)
[2021-03-08 22:14] LABS: C & S Indicated? No/Sq. Contamination
== END 2021-03-08 21:53 | disposition home or self-care (01) ==
LOC: LBN 21:52
PROVIDERS: Visit Provider Family Medicine
DX: S72.142D Displaced intertrochanteric fracture of left femur, subsequent encounter for closed fracture with routine healing (principal)
CPT/HCPCS: 81003; 81015; 87086

== ENCOUNTER 2021-03-18 13:24 | Outpatient (CLI) | payer MEDICARE, OTHER, SELFPAY ==
--- NOTE | 2021-03-18 12:45 | DI.RAD_ITS ---
Exam(s) XR HIP LT COMPLETE AP PELVIS CLINICAL HISTORY: left hip fracture. TECHNIQUE: 2D digital imaging was performed of the left hip. Two views were obtained. AP pelvis an d lateral left hip views were obtained. COMPARISON: CR,XR XR PELVIS AP from 02/26/2021 RF XR HIP LT IN OR from 02/27/2021 FINDINGS: BONES: No acute fracture is present. No bony destructive lesion is seen. There again seen 3 partially threaded screws transfixing an old right subcapital femoral neck fracture. There are old right supe rior and inferior pubic rami fractures. There is no change in alignment of the recently placed intra medullary lupe and screws transfixing the proximal left femoral fracture. No change in alignment of t he fracture components is seen. There is no new fracture or dislocation. JOINTS: No dislocation present. SOFT TISSUE: Atherosclerosis. IMPRESSION: Stable ORIF of the left femur. DATA REPOSITORY: RADIATION DOSE DELIVERED:
== END 2021-03-18 13:25 | disposition home or self-care (01) ==
LOC: DIORS 13:26
PROVIDERS: Visit Provider Physician Assistant
DX: S72.002D Fracture of unspecified part of neck of left femur, subsequent encounter for closed fracture with routine healing (principal); M70.61 Trochanteric bursitis, right hip; M70.62 Trochanteric bursitis, left hip; X58.XXXD Exposure to other specified factors, subsequent encounter
CPT/HCPCS: 73502

== ENCOUNTER 2021-04-18 11:05 | Outpatient (REF) | payer MEDICARE, SELFPAY ==
[2021-04-18 12:37] LABS: Anion Gap 9.6 mmol/L (3-11); BUN 13 mg/dL (7-18); CO2 25.4 mmol/L (21.0-32.0); CREATININE 0.7 mg/dL (0.55-1.02); Calcium 8.7 mg/dL (8.5-10.1); Chloride 104 mmol/L (98-107); Glucose 123 mg/dL (74-106); Potassium 3.7 mmol/L (3.5-5.1); Sodium 139 mmol/L (136-145)
== END 2021-04-18 11:06 | disposition home or self-care (01) ==
LOC: LBN 11:05
PROVIDERS: Visit Provider Nurse Practitioner Family
DX: I48.0 Paroxysmal atrial fibrillation (principal); E27.49 Other adrenocortical insufficiency; G30.9 Alzheimer's disease, unspecified
CPT/HCPCS: 80048

== ENCOUNTER 2021-05-09 03:53 | Outpatient (REF) | payer MEDICARE, SELFPAY ==
[2021-05-09 04:12] LABS: Bilirubin Negative (Negative); Blood Negative (Negative); Clarity Sl Cloudy (Clear); Glucose Negative (Negative); Ketones Negative (Negative); Leukocyte Esterase Small (Negative); Nitrite Positive (Negative); Specific Gravity 1.015 (1.005-1.025); Urobilinogen 0.2 EU/dL (Up TO 0.2); pH 6.5 (5-8)
[2021-05-09 04:18] LABS: Bacteria Many HPF (Negative); C & S Indicated? C&S Done As Ordered; Casts Negative LPF (Negative); Crystals Negative HPF (Negative); Epithelial Cells Rare HPF (Negative); Mucus Negative (Negative); RBC 0-2 HPF (0-2)
== END 2021-05-09 03:54 | disposition home or self-care (01) ==
LOC: LBN 03:53
PROVIDERS: Visit Provider Family Medicine
DX: R30.0 Dysuria (principal)
CPT/HCPCS: 87077; 81003; 81015; 87086; 87186

== ENCOUNTER 2021-05-14 09:34 | Outpatient (CLI) | payer MEDICARE, OTHER, SELFPAY ==
--- NOTE | 2021-05-14 09:30 | DI.RAD_ITS ---
Exam(s) XR HIP LT AP LAT ONLY EXAM: XR HIP LT AP LAT ONLY CLINICAL HISTORY: left hip fx f/u. TECHNIQUE: 2D digital imaging was performed. COMPARISON: CR XR HIP LT COMPLETE AP PELVIS from 03/18/2021 FINDINGS: Two views Hardware across the intertrochanteric fracture site appears stable. Mild healing. No further displa cement. No radiographic evidence of loosening nor osteomyelitis. IMPRESSION: DATA REPOSITORY: RADIATION DOSE DELIVERED:
== END 2021-05-14 09:35 | disposition home or self-care (01) ==
LOC: DIORS 09:34
PROVIDERS: Visit Provider Student in an Organized Health Care Education/Training Program
DX: S72.142A Displaced intertrochanteric fracture of left femur, initial encounter for closed fracture (principal); X58.XXXA Exposure to other specified factors, initial encounter
CPT/HCPCS: 73502

== ENCOUNTER 2021-05-18 18:28 | Emergency (ER) | payer MEDICARE, OTHER, SELFPAY ==
[2021-05-18] VITALS (19 sets, daily range): BP systolic 94–132; BP diastolic 37–86; PULSE 67–79; RESP 9–17; TEMP 36.6–36.8; O2SAT 94–98
--- NOTE | 2021-05-18 18:00 | RT.EKG_ITS ---
APPROVED REPORT Exam: Resting ECG Reason for Exam: dizziness Patient Location: E HR:71 bpm ECG Measurements Heart Rate 71 AXIS TX 185 P 40 QRSd 77 QRS 8 QT 385 T 58 QTc 419 Conclusion Sinus rhythm...normal P axis, V-rate 60- 99
--- NOTE | 2021-05-18 18:13 | DI.RAD_ITS ---
Exam(s) XR CHEST 1V IN DI DEPT EXAM: XR CHEST 1V IN DI DEPT CLINICAL HISTORY: dizziness, r/o acute disease TECHNIQUE: 2D digital imaging was performed. COMPARISON: CR,XR XR CHEST 1V IN DI DEPT from 02/26/2021 FINDINGS: LUNGS: Clear. No pleural abnormality seen. HEART: Normal. MEDIASTINUM: Normal. BONES: Unremarkable. IMPRESSION: No acute pulmonary findings. DATA REPOSITORY: RADIATION DOSE DELIVERED:
--- NOTE | 2021-05-18 18:13 | DI.RAD_ITS ---
Exam(s) XR PELVIS AP EXAM: XR PELVIS AP CLINICAL HISTORY: fall, r/o fracture. TECHNIQUE: 2D digital imaging was performed. One view. COMPARISON: CR XR HIP LT COMPLETE AP PELVIS from 03/18/2021 FINDINGS: BONES: No acute fracture is present. Hardware is no noted in both proximal femurs related to prior f ractures. There has been no change in fracture alignment. There has been continued healing at the l eft femoral neck fracture. Old right pubic ramus fractures are seen. The sacrum is not well visuali zed. Degenerative changes are noted in the lower lumbar spine. Hip joint spaces are well maintained . No bony destructive lesion is seen. JOINTS: No dislocation present. No joint space narrowing is present. SOFT TISSUE: Normal. IMPRESSION: No acute abnormality. DATA REPOSITORY: RADIATION DOSE DELIVERED:
--- NOTE | 2021-05-18 18:13 | DI.CT_ITS ---
Exam(s) CT HEAD CERVICAL SPINE WO EXAM: CT HEAD CERVICAL SPINE WO CLINICAL HISTORY: fall, hit back of head, r/o acute fracture. TECHNIQUE: Imaging Protocol: Axial computed tomography images with coronal and sagittal reformatted images were created and reviewed COMPARISON: CT CT HEAD WO from 12/05/2019 FINDINGS: Head CT Ventricles and Extra axial spaces: Normal in size and morphology for the patient's age. Hemorrhage: None. Cerebral parenchyma: Mild atrophy. [id number] white matter changes of small vessel disease. Midline shift: None. Brainstem/Cerebellum: Normal. Calvarium: Normal. Visualized Paranasal sinuses/Mastoids: Clear. Cervical Spine CT BONES: Vertebral body heights are maintained. Alignment is normal. There is no evidence of acute frac ture. Degenerative disc changes and facet degenerative changes are seen . degenerative changes noted in th e temporomandibular joints. SOFT TISSUES: No paraspinal hematoma. The airway appears intact. No pneumothorax is seen at the lung apices. IMPRESSION: Head CT: No acute abnormality. C-spine CT: Degenerative changes, no acute abnormality. RADIATION DOSE DELIVERED: 1,458.14mGy.cm Total DLP DATA REPOSITORY: All CT scans at this facility are submitted to the National Radiology Data Registry (NRDR) Dose Index Registry (DIR) with the [employer] (A[employer]). RADIATION OPTIMIZATION: All CT scans at this facility use at least one of these dose optimization te chniques: automated exposure control; mA and/or kV adjustment per patient size (includes targeted exa ms where dose is matched to clinical indication); or iterative reconstruction.
--- NOTE | 2021-05-18 19:21 | W.ED.GENAD ---
Discharge Plan Disposition Patient Disposition: SNF (LEVEL 1) [facility] Condition: Stable Discharge Details Clinical Impression: Fall, Laceration of scalp Primary Care Provider: Aby Salvador ED Provider: Debbie Hinds [place] Meds and New Rx's Prescriptions: Continued Centrum Silver Women 8 mg iron-400 mcg-300 mcg tablet 1 tab PO DAILY 0RF omeprazole 20 mg capsule,delayed release(DR/EC) 20 mg PO DAILY Qty: 90 3RF bisacodyl [Dulcolax (bisacodyl)] 10 mg suppository 10 mg SD DAILY PRN0RF magnesium hydroxide 400 mg/5 mL suspension 5 ml PO DAILY PRN0RF prednisone 5 mg tablet 5 mg PO DAILY Qty: 90 3RF metoprolol succinate 100 mg tablet extended release 24 hr 100 mg PO DAILY Qty: 90 4RF sodium chloride 1 gram tablet 1,000 mg PO DAILY Qty: 90 3RF coenzyme Q10 [CoQ-10] 100 mg Capsule 200 mg PO DAILY 0RF aspirin 81 mg Tablet,Delayed Release (Dr/Ec) 81 mg PO DAILY Qty: 100 0RF Acetaminophen [Tylenol] 1,000 mg PO Q8H Qty: 0 0RF quetiapine 25 mg Tablet 25 mg PO HS Qty: 60 0RF quetiapine 25 mg Tablet 25 mg PO BID PRN PRNQty: 0 0RF amlodipine 5 mg Tablet 5 mg PO DAILY Qty: 30 0RF gabapentin 300 mg Capsule 600 mg PO HS Qty: 0 0RF gabapentin 300 mg Capsule 300 mg PO DAILY PRN PRN (Reason: Headache) Qty: 0 0RF mirtazapine 15 mg Tablet 7.5 mg PO DAILY@1700 Qty: 30 0RF gabapentin 300 mg capsule 300 mg PO DAILY Qty: 120 11RF Rx Instructions: 300mg am and 600mg HS; ok to take 300mg once daily prn headache No Action sulfamethoxazole-trimethoprim [Bactrim DS] 800-160 mg Tablet 1 tab PO BID 0RF ascorbic acid (vitamin C) [Vitamin C] 500 mg Tablet 500 mg PO DAILY 0RF naproxen sodium 550 mg Tablet 500 mg PO Q12H PRN0RF zinc 50 mg Tablet 50 mg PO DAILY 0RF cholecalciferol (vitamin D3) [Vitamin D3] 25 mcg (1,000 unit) Tablet 50 mcg PO DAILY 0RF Paxlovid (EUA) 150 mg x 2- 100 mg Tablet 0 tab PO PER PKG DIR 0RF Discharge Instructions Additional Instructions: CT head, chest x-ray pelvis x-ray all within normal limits. The laceration was cleaned and approximated with Dermabond or tissue adhesive. Lab work all within normal limits. Kidney functions are little bit elevated may be a sign of dehydration. Please increase oral fluids. You were given Tylenol while here in the department. Follow up with primary care provider in 3-5 days. Return to ED sooner if any worsening or concerns. Increase oral fluids. Referrals: Aby Salvador NP [Primary Care Provider] - 3 days Medical Decision Making 85-year-old female presents [facility] the ER [facility] with chief complaint of appears to be mechanical fall. Patient slipped on the floor fell hit the back of her head landed on her butt and back. She has a small 0.5 cm laceration to her occipital scalp. No loss of consciousness. She is alert and oriented x3. However she is slightly confused and does have repetitive statements. She does take aspirin 81 mg daily. She was positive for Covid on May 01. She is a DNR/DNI. She has no other complaints no back pain no shortness of breath. She is speaking in full sentences. No focal neuro deficits. She is moving her neck without difficulty. No midline C-spine tenderness or crepitus with palpation. Past medical history includes osteoporosis, atrial flutter, mild cognitive impairment, migraines, memory loss, celiac disease CT Head: IMPRESSION: 1. No acute intracranial hemorrhage or depressed skull fracture. 2. Presumed chronic microvascular ischemic change. CT C-Spine: IMPRESSION: No acute cervical fracture or malalignment is seen. Mild superior endplate compression deformities at T2 and T3 with mild loss of anterior vertebral height, uncertain chronicity, image 29 of series 15. Comparison with prior imaging recommended. Imaging protocol: XR pelvis. Views: 1 or 2 view. COMPARISON: CR XR HIP LT COMPLETE AP PELVIS 03/18/2021 1:26 PM FINDINGS: Bones/joints: Postoperative changes to bilateral hips with a dynamic hip screw in the left hip in 3 screws traversing the right femoral neck and head. Stable fracture deformity upper left femoral neck. There is a levoscoliosis of the lumbar spine present. Soft tissues: Unremarkable. Vasculature: Atherosclerotic calcifications are noted. IMPRESSION: 1. No acute fracture. 2. Posttraumatic and postoperative changes to the hips are stable. XR CHEST 1V IN DI DEPT 02/26/2021 11:29 PM FINDINGS: Lungs: Unremarkable. No consolidation. Pleural spaces: Unremarkable. No pleural effusion. No pneumothorax. Heart/Mediastinum: Unremarkable. No cardiomegaly. Vasculature: Atherosclerotic calcifications noted at the aortic arch. Bones/joints: Unremarkable. IMPRESSION: No acute cardiopulmonary process. Labs are largely within normal limits, BUN and creatinine are slightly elevated, will give a 500 cc bolus. Sodium is 131, Laceration repaired with yet Dermabond well approximated. Bleeding is controlled. Plan is to discharge patient back home to health and rehab. She is remained hemodynamically stable and alert and at baseline throughout stay. 2327: EMS here to transport patient back to health and rehab. Patient remained hemodynamically stable and at baseline for the remainder of her stay. No further bleeding noted from the laceration to her scalp. This text was generated using [employer] system, please disregard any oddities of phrase or misspellings. HPI General Mode of arrival: EMS. Date/Time Provider Initiated Documentation: 05/18/21 18:35. Limitations to Documentation: altered mental status (Slightly confused). Information obtained by: patient, EMS, RN notes reviewed and old records reviewed. HPI Narrative: 85-year-old female presents to the ER from [facility] with chief complaint of appears to be mechanical fall. Patient slipped on the floor fell hit the back of her head landed on her butt and back. She has a small 0.5 cm laceration to her occipital scalp. No loss of consciousness. She is alert and oriented x3. However she is slightly confused and does have repetitive statements. She does take aspirin 81 mg daily. She was positive for Covid on May 01. She is a DNR/DNI. She has no other complaints no back pain no shortness of breath. She is speaking in full sentences. No focal neuro deficits. She is moving her neck without difficulty. No midline C-spine tenderness or crepitus with palpation. Past medical history includes osteoporosis, atrial flutter, mild cognitive impairment, migraines, memory loss, celiac disease Related Data Home Medications Medication Instructions Recorded Confirmed coenzyme Q10 100 mg capsule 200 mg PO DAILY 10/04/18 05/18/21 (CoQ-10) aspirin 81 mg tablet,delayed 81 mg PO DAILY #100 tab 09/17/19 05/18/21 release omeprazole 20 mg capsule,delayed 20 mg PO DAILY #90 cap 07/09/20 05/14/21 release prednisone 5 mg tablet 5 mg PO DAILY #90 tab 11/15/20 05/18/21 metoprolol succinate 100 mg 100 mg PO DAILY #90 tab 12/16/20 05/18/21 tablet,extended release 24 hr multivit with 1 tab PO DAILY 12/24/20 05/18/21 ubgrntzo-xibr-VL-lutein 8 mg iron-400 mcg-300 mcg tablet (Centrum Silver Women) sodium chloride 1 gram tablet 1,000 mg PO DAILY #90 tab 02/05/21 05/18/21 Acetaminophen [Tylenol] 1,000 mg PO Q8H #0 03/03/21 05/18/21 amlodipine 5 mg tablet 5 mg PO DAILY #30 tab 03/03/21 05/18/21 gabapentin 300 mg capsule 300 mg PO DAILY #120 cap 03/03/21 05/18/21 gabapentin 300 mg capsule 300 mg PO DAILY PRN PRN #0 cap 03/03/21 05/18/21 gabapentin 300 mg capsule 600 mg PO HS #0 cap 03/03/21 05/18/21 mirtazapine 15 mg tablet 7.5 mg PO DAILY@1700 #30 tab 03/03/21 05/18/21 quetiapine 25 mg tablet 25 mg PO BID PRN PRN #0 tab 03/03/21 03/18/21 quetiapine 25 mg tablet 25 mg PO HS #60 tab 03/03/21 05/18/21 bisacodyl 10 mg rectal suppository 10 mg SD DAILY PRN 03/18/21 05/18/21 (Dulcolax (bisacodyl)) magnesium hydroxide 400 mg/5 mL 5 ml PO DAILY PRN 03/18/21 05/18/21 oral suspension ascorbic acid (vitamin C) 500 mg 500 mg PO DAILY 05/18/21 05/18/21 tablet (Vitamin C) cholecalciferol (vitamin D3) 25 50 mcg PO DAILY 05/18/21 05/18/21 mcg (1,000 unit) tablet (Vitamin D3) naproxen sodium 550 mg tablet 500 mg PO Q12H PRN 05/18/21 05/18/21 nirmatrelvir 150 mg x 2-ritonavir 0 tab PO PER PKG DIR 05/18/21 05/18/21 100 mg tablet (EUA) (Paxlovid (EUA)) sulfamethoxazole 800 1 tab PO BID 05/18/21 05/18/21 mg-trimethoprim 160 mg tablet (Bactrim DS) zinc 50 mg tablet 50 mg PO DAILY 05/18/21 05/18/21 Previous Rx's Medication Instructions Recorded aspirin 81 mg tablet,delayed 81 mg PO DAILY #100 tab 09/17/19 release omeprazole 20 mg capsule,delayed 20 mg PO DAILY #90 cap 07/09/20 release prednisone 5 mg tablet 5 mg PO DAILY #90 tab 11/15/20 metoprolol succinate 100 mg 100 mg PO DAILY #90 tab 12/16/20 tablet,extended release 24 hr sodium chloride 1 gram tablet 1,000 mg PO DAILY #90 tab 02/05/21 Acetaminophen [Tylenol] 1,000 mg PO Q8H #0 03/03/21 amlodipine 5 mg tablet 5 mg PO DAILY #30 tab 03/03/21 gabapentin 300 mg capsule 300 mg PO DAILY #120 cap 03/03/21 gabapentin 300 mg capsule 300 mg PO DAILY PRN PRN #0 cap 03/03/21 gabapentin 300 mg capsule 600 mg PO HS #0 cap 03/03/21 mirtazapine 15 mg tablet 7.5 mg PO DAILY@1700 #30 tab 03/03/21 quetiapine 25 mg tablet 25 mg PO BID PRN PRN #0 tab 03/03/21 quetiapine 25 mg tablet 25 mg PO HS #60 tab 03/03/21 Allergies Allergy/AdvReac Type Severity Reaction Status Date / Time carbamazepine AdvReac Severe Confusion Verified 05/18/21 22:00 and disorientation morphine AdvReac Intermediate made my Verified 05/18/21 22:00 chest feel likie I was in a vice General Stated Complaint: HeadInjury HARSHAD: 3 Review of Systems Narrative: History somewhat limited additional history obtained from health and rehab and EMS. Constitutional Constitutional: Denies fever(s) and Reports headache(s) ENT Ears, Nose, Mouth, and Throat: Denies dental pain, Denies facial pain and Reports headache(s) Cardiovascular Cardiovascular: Denies chest pain and Denies dyspnea Respiratory Respiratory: Reports system reviewed and no additional complaints, except as documented, Denies cough and Denies dyspnea Integumentary/Breasts Skin/Breast: Reports wounds (0.5 cm laceration back of head) Neurologic Neurologic: Reports as per HPI and Reports headache(s) PFSH All Active Problems (Updated 05/18/21 @ 21:09 by Debbie Hinds) Fall (Acute) Laceration of scalp (Acute) Right ankle sprain (Acute) Advance directive indicates patient wish for [id number] resuscitation status (Acute) Elevated BP without diagnosis of hypertension (Acute) Memory loss (Acute) Migraine headache without aura (Acute) Generalized weakness (Acute) Spinal stenosis (Acute) Atrial flutter (Chronic) paroxysmal, Atrial fib/flutter, rate controlled, not on anticoagulation. Zio Patch ordered. Premature beats (Chronic) 10/29/10 H/O multiples pvc's Osteoporosis (Chronic) Irritable colon (Chronic) Celiac disease (Chronic 06/12/13) Medical History (Updated 05/18/21 @ 21:09 by Debbie Hinds) Abnormal mammography (03/27/13) Adrenal insufficiency Ataxia Chronic headache Closed head injury Cortical cataract of left eye Diverticulosis of colon without diverticulitis DVT (deep venous thrombosis) s/p hemorrhoid banding Epiretinal membrane (ERM) of left eye Epiretinal membrane (ERM) of right eye Fall GERD (gastroesophageal reflux disease) History of pelvic fracture Hypertension Hypokalemia Hyponatremia Inflammation of Sacroiliac Joint Lumbosacral radiculopathy due to degenerative joint disease of spine Nuclear sclerotic cataract of left eye Osteoarthritis Pancreatic lesion Paroxysmal atrial fibrillation with rapid ventricular response Pelvic fracture PMR (polymyalgia rheumatica) Polymyalgia rheumatica (08/14/14) Post concussive syndrome Pyloric ulcer associated with Helicobacter pylori (01/21/05) Right lumbar radiculopathy (07/05/15) SIADH (syndrome of inappropriate ADH production) Urine sodium 56. Urine osmolality 460 Will need f/u lab and continued fluid restriction. Cause at this point is idiopathic. SIRS (systemic inflammatory response syndrome) Subconjunctival hemorrhage of left eye Trochanteric bursitis of both hips Surgical History (Updated 03/18/21 @ 13:03 by Elen Blake) Closed right hip fracture (05/03/19) S/P ORIF with cannulated screw fixation on 05/04/2019 Colonoscopy - MAC Fracture of hip, left, closed (02/26/21) s/p left hip intramedullary nail DOS: 02/27/2021 Hemorrhoidal Banding (04/27/17) Status post cataract extraction and insertion of intraocular lens of left eye (05/02/18) Status post cataract extraction and insertion of intraocular lens of right eye (05/16/18) Status post cholecystectomy Family History Mother No problems noted. Father Neoplasm PANCREATIC Sister Neoplasm BREAST/THYROID Social History Smoking/Tobacco Use Status: Never Smoking risk assessment performed?: Yes Alcohol Intake: never Drug use: Never Substance use type: does not use Counseling given: No Counseling provided: none Caregiver/Support person: Yes Household members: caregiver Housing: house Number of Children: 3 number of grandchildren: 5 Communication Needs: None Do you need help understanding health information?: Never current occupation: [employer] Pets and animals: No Sexually active: No Do you think of yourself as: straight/heterosexual Current gender identity: female What is your relationship status?: How often do you talk on the phone with friends or family?: three or more times per week How often do you get together with friends or relatives?: three or more times per week How often do you attend latter-day or rastafarian services?: decline to answer Do you belong to any clubs or organized social groups?: no Panel score (0-1 are the most socially isolated patients): 1 What type of physical activity do you participate in: none Frequency: does not exercise Jennifer/Sabianism: Evangelical Special jennifer needs: No Seatbelt use: always Helmet use: No Drive intox or ride w/intox mobile lounge driver or operator: No Do you feel safe at home: Yes Do you feel safe in your relationship?: Yes Exam Narrative Exam Narrative: General: Well Developed, Awake and Alert, conversant. Skin: Warm and Dry HEENT: Head: No palpable deformities, Normocephalic small 0.5 cm laceration noted to the back of the occipital scalp. Eyes: Pupils PERRLA, EOM's intact. No periorbital eccymosis or step off Ears: Canal patent. Tympanic membranes are clear . No velázquez's sign, no hemptympanum. Nose/Face: Atraumatic. Facial bones nontender to palpation and stable with manipulation. Mouth/Throat: No intraoral trauma. Teeth and mandible are intact. Neck: No midline tenderness, no step off, no deformity to palpation of C-spine. Trachea midline. Chest: No surface trauma. Nontender without crepitus or deformity. Lungs clear to ausculatation bilaterally. Heart: RRR, no rubs, murmurs or gallop. Abdomen: No abrasions, ecchymosis, or surface trauma. Nondistended. Nontender to palpation no guarding, rebound, or rigidity. Pelvis: Nontender to palpation and stable to compression. Femoral pulses strong and equal Extremities: no surface trauma. Sensation intact. Peripheral pulses intact and equal. Neuro: ANO x2, Slightly confused, GCS 15, cranial nerves II through XII intact. Motor and sensory exam nonfocal. Reflexes are symmetric. Course Vital Signs Vital signs: Vital Signs Temperature 36.6 C 05/18/21 18:16 Pulse 79 05/18/21 18:16 Respiratory Rate 17 05/18/21 18:16 Blood Pressure 112/67 05/18/21 18:16 Pulse Oximetry 97 05/18/21 18:16 Temperature 36.6 C 05/18/21 18:16 Temperature Source Temporal Artery Scan 05/18/21 18:16 Pulse 79 05/18/21 18:16 Respiratory Rate 17 05/18/21 18:16 Respiratory Effort Non-Labored 05/18/21 18:33 Respiratory Depth Normal 05/18/21 18:33 Respiratory Pattern Normal 05/18/21 18:33 Blood Pressure 112/67 05/18/21 18:16 Blood Pressure Position Sitting 05/18/21 18:16 Pulse Oximetry 97 05/18/21 18:16 Oxygen Delivery Method Room Air 05/18/21 18:16 Oxygen Flow Rate 0 05/18/21 18:16 Pain Level 4 05/18/21 18:16 Procedures Laceration Laceration 1: Site: scalp Size (cm): 0.5 Description: linear and irregular Depth: simple, single layer Local Anesthetic: Lidocaine 1% and with Epi Amount of anesthesia used (mL): 3 Pre-repair: wound explored, irrigated extensively and deep structures intact Skin layer closed with: other (Tissue adhesive)
--- NOTE | 2021-05-18 20:23 | DI.VRAD_ITS ---
PROCEDURE INFORMATION: Exam: CT Head Without Contrast Exam date and time: 05/18/2021 7:39 PM Age: 85 years old Clinical indication: Other: Fall, hit back of head, R/O acute fracture TECHNIQUE: Imaging protocol: Computed tomography of the head without contrast. COMPARISON: 1. CT HEAD WO 12/05/2019 8:[address] HEAD WO 11/22/2019 9:12 PM FINDINGS: Brain: No acute intracranial hemorrhage, mass-effect, midline shift, or extra-axial collection is seen. There is patchy white matter hypoattenuation, nonspecific but commonly seen as a chronic sequela of small vessel ischemic disease. There is patchy hypoattenuation in the region of the basal ganglia and deep white matter tracts with an appearance suggesting lacunar infarcts, uncertain chronicity. The marks white matter differentiation appears preserved. There is symmetric parenchymal volume loss. Incidental note is made of small interhemispheric lipomas. Cerebral ventricles: The ventricular system and basilar cisterns appear appropriate in size and configuration given the degree of parenchymal volume loss. Paranasal sinuses: The paranasal sinuses appear well aerated. No air-fluid levels are seen. Mastoid air cells: The mastoid air cells appear well-aerated. Auditory system: The middle ear cavities appear clear. Orbital cavities: The globes and intraorbital structures appear grossly intact. Bones/joints: The bony calvarium appears intact. No depressed skull fracture is seen. Soft tissues: No gross focal scalp hematoma is seen. IMPRESSION: 1. No acute intracranial hemorrhage or depressed skull fracture. 2. Presumed chronic microvascular ischemic change. 3. Symmetric parenchymal volume loss. PROCEDURE INFORMATION: Exam: CT Cervical Spine Without Contrast Exam date and time: 05/18/2021 7:39 PM Age: 85 years old Clinical indication: Other: Fall, hit back of head, R/O acute fracture TECHNIQUE: Imaging protocol: Computed tomography images of the cervical spine without contrast. COMPARISON: 1. CT HEAD WO 12/05/2019 8:[address] HEAD WO 11/22/2019 9:12 PM FINDINGS: Vertebrae: No acute cervical fracture or malalignment is seen. Mild superior endplate compression deformities at T2 and T3 with mild loss of anterior vertebral height, uncertain chronicity, image 29 of series 15. Comparison with prior imaging recommended. C2-C3: Disc height preserved. Moderate right-sided facet arthrosis. No significant cervical stenosis or foraminal narrowing. C3-C4: Disc height preserved. Moderate left-sided facet arthrosis. Small broad-based posterior disc bulge. No significant cervical stenosis. Mild right and moderate left-sided foraminal narrowing. C4-C5: Loss of disc height with anterior osteophyte formation, posterior osteophytic ridging, and bilateral uncovertebral hypertrophy. Moderate-severe bilateral facet arthrosis. No significant cervical stenosis. Moderate bilateral foraminal narrowing. C5-C6: Loss of disc height with endplate irregularity, anterior osteophyte formation, posterior osteophytic ridging, and bilateral uncovertebral hypertrophy. No significant cervical stenosis. Moderate bilateral foraminal narrowing. C6-C7: Loss of disc height with endplate irregularity, anterior osteophyte formation, and posterior osteophytic ridging. No significant cervical stenosis. Mild-moderate bilateral foraminal narrowing. C7-T1: Disc height preserved. Moderate left-sided facet arthrosis. No significant cervical stenosis or foraminal narrowing. Soft tissues: Within the limits of the exam, no gross soft tissue fluid collection is seen in the neck. Thyroid: Normal sized thyroid gland, partially obscured by artifact. Vasculature: There is atherosclerotic calcification at the carotid bifurcations bilaterally. Lungs: Mild smooth thickening of the intralobular pulmonary septa at the lung apices suggesting possible mild interstitial pulmonary edema or volume overload. IMPRESSION: No acute cervical fracture or malalignment is seen. Mild superior endplate compression deformities at T2 and T3 with mild loss of anterior vertebral height, uncertain chronicity, image 29 of series 15. Comparison with prior imaging recommended. Dictated and Authenticated by: Jagdish Buenrostro MD. Ordering:ZAYDA Marcial MD
--- NOTE | 2021-05-18 20:32 | DI.VRAD_ITS ---
PROCEDURE INFORMATION: Exam: XR Pelvis Exam date and time: 05/18/2021 7:40 PM Age: 85 years old Clinical indication: Other: Fall, R/O fracture TECHNIQUE: Imaging protocol: XR pelvis. Views: 1 or 2 view. COMPARISON: CR XR HIP LT COMPLETE AP PELVIS 03/18/2021 1:26 PM FINDINGS: Bones/joints: Postoperative changes to bilateral hips with a dynamic hip screw in the left hip in 3 screws traversing the right femoral neck and head. Stable fracture deformity upper left femoral neck. There is a levoscoliosis of the lumbar spine present. Soft tissues: Unremarkable. Vasculature: Atherosclerotic calcifications are noted. IMPRESSION: 1. No acute fracture. 2. Posttraumatic and postoperative changes to the hips are stable. Dictated and Authenticated by: Veronica Son MD. Ordering:ZAYDA Marcial MD
--- NOTE | 2021-05-18 20:33 | DI.VRAD_ITS ---
PROCEDURE INFORMATION: Exam: XR Chest Exam date and time: 05/18/2021 7:36 PM Age: 85 years old Clinical indication: Other: Dizziness R/O acute disease TECHNIQUE: Imaging protocol: XR of the chest. Views: 1 view. COMPARISON: XR CHEST 1V IN DI DEPT 02/26/2021 11:29 PM FINDINGS: Lungs: Unremarkable. No consolidation. Pleural spaces: Unremarkable. No pleural effusion. No pneumothorax. Heart/Mediastinum: Unremarkable. No cardiomegaly. Vasculature: Atherosclerotic calcifications noted at the aortic arch. Bones/joints: Unremarkable. IMPRESSION: No acute cardiopulmonary process. Dictated and Authenticated by: Veronica Son MD. Ordering:ZAYDA Marcial MD
[2021-05-18 20:34] LABS: Abs Immature Grans 0.07 10^3/uL (0.0-0.06); Absolute Basophil Count 0.04 10^3/uL (0.0-0.2); Absolute Eosinophil Count 0.26 10^3/uL (0.0-0.7); Absolute Lymphocyte Count 2.42 10^3/uL (1.2-3.4); Absolute Monocyte Count 0.95 10^3/uL (0.1-0.8); Absolute Neutrophil Count 6.37 10^3/uL (1.2-6.7); Basophils % 0.4; Eosinophils % 2.6; HCT 34.3 % (36.0-46.0); HGB 11.1 g/dL (11.2-15.7); Immature Grans % 0.7; Lymphocytes % 23.9; MCH 28.4 pg (27.0-33.0); MCHC 32.4 % (32.0-36.0); MCV 87.7 fL (80-95); MPV 10.8 fL (8.0-11.0); Monocytes % 9.4; Nucleated RBC 0 %; Platelet Count 260 10^3/uL (130-400); RBC 3.91 10^6/uL (3.93-5.22); RDW 14.3 % (11.7-14.6); RDW-SD 46.1 fL; WBC 10.11 10^3/uL (4.4-10.8)
[2021-05-18] MEDS: Acetaminophen 325 MG TAB PO (20:35)
[2021-05-18] MEDS: Lidocaine/Epinephri/Tetracaine Topical Gel 3 ML TP (20:35)
[2021-05-18 20:58] LABS: ALT 21 U/L (14-59); AST 27 U/L (15-37); Alkaline Phosphatase 145 U/L (46-116); Anion Gap 9.2 mmol/L (3-11); BUN 23 mg/dL (7-18); Bilirubin, Total 0.2 mg/dL (0.2-1.0); CO2 23.8 mmol/L (21.0-32.0); CREATININE 1.4 mg/dL (0.55-1.02); Calcium 8.5 mg/dL (8.5-10.1); Chloride 98 mmol/L (98-107); Estimated GFR 35.74 (mL/min/1.73m2); Glucose 101 mg/dL (74-106); Magnesium 2.2 mg/dL (1.8-2.4); Potassium 4.3 mmol/L (3.5-5.1); Sodium 131 mmol/L (136-145); Total Protein 6.9 g/dL (6.4-8.2); Troponin I < 50 ng/L (<or=60)
[2021-05-18] MEDS: Normal Saline 500 ML IV (21:37)
[2021-05-19 22:40] VITALS: BP 132/66; PULSE 71; RESP 11; TEMP 36.8; O2SAT 96
== END 2021-05-18 23:20 | disposition skilled nursing facility (03) ==
PROVIDERS: Physician Assistant; Emergency Provider Registered Nurse Emergency
DX: S01.01XA Laceration without foreign body of scalp, initial encounter (principal); R42 Dizziness and giddiness; R41.0 Disorientation, unspecified; S79.812A Other specified injuries of left hip, initial encounter; S79.811A Other specified injuries of right hip, initial encounter; W01.0XXA Fall on same level from slipping, tripping and stumbling without subsequent striking against object, initial encounter
CPT/HCPCS: 36415; 80053; 93005; 99285; 70450; 71045; 72125; 72170; 83735; 84484; 85025; 93010; 99284

== ENCOUNTER 2021-05-20 22:12 | Outpatient (REF) | payer MEDICARE, SELFPAY ==
[2021-05-20 22:28] LABS: HCT 31.3 % (36.0-46.0); HGB 10.3 g/dL (11.2-15.7); MCH 28.6 pg (27.0-33.0); MCHC 32.9 % (32.0-36.0); MCV 86.9 fL (80-95); MPV 11.2 fL (8.0-11.0); Platelet Count 285 10^3/uL (130-400); RDW 14.4 % (11.7-14.6); RDW-SD 46.3 fL; WBC 7.39 10^3/uL (4.4-10.8)
[2021-05-20 22:35] LABS: Anion Gap 10.2 mmol/L (3-11); BUN 23 mg/dL (7-18); CO2 20.8 mmol/L (21.0-32.0); Calcium 8.3 mg/dL (8.5-10.1); Chloride 99 mmol/L (98-107); Estimated GFR 52.69 (mL/min/1.73m2); Glucose 113 mg/dL (74-106); Potassium 5.5 mmol/L (3.5-5.1); Sodium 130 mmol/L (136-145)
== END 2021-05-20 22:13 | disposition home or self-care (01) ==
LOC: LBN 22:12
PROVIDERS: Visit Provider Nurse Practitioner Family
DX: G30.9 Alzheimer's disease, unspecified (principal)
CPT/HCPCS: 80048; 85027

== ENCOUNTER 2021-05-21 15:16 | Outpatient (REF) | payer MEDICARE, SELFPAY | END 2021-05-21 15:17 | disposition home or self-care (01) | LOC: LBN 15:16 | PROVIDERS: Visit Provider Nurse Practitioner Family | DX: G30.9 Alzheimer's disease, unspecified (principal) | CPT/HCPCS: 87086 ==

== ENCOUNTER 2021-05-31 21:38 | Outpatient (REF) | payer MEDICARE, SELFPAY ==
[2021-05-31 22:03] LABS: Anion Gap 9.8 mmol/L (3-11); BUN 23 mg/dL (7-18); CO2 26.2 mmol/L (21.0-32.0); CREATININE 0.8 mg/dL (0.55-1.02); Calcium 8.9 mg/dL (8.5-10.1); Chloride 100 mmol/L (98-107); Glucose 113 mg/dL (74-106); Potassium 4.9 mmol/L (3.5-5.1); Sodium 136 mmol/L (136-145)
== END 2021-05-31 21:39 | disposition home or self-care (01) ==
LOC: LBN 21:38
PROVIDERS: Visit Provider Family Medicine
DX: E87.6 Hypokalemia (principal)
CPT/HCPCS: 80048

== ENCOUNTER 2021-06-14 19:39 | Outpatient (REF) | payer MEDICARE, SELFPAY ==
[2021-06-14 20:05] LABS: Anion Gap 8.7 mmol/L (3-11); BUN 14 mg/dL (7-18); CO2 24.3 mmol/L (21.0-32.0); CREATININE 1.1 mg/dL (0.55-1.02); Calcium 8.9 mg/dL (8.5-10.1); Chloride 103 mmol/L (98-107); Estimated GFR 47.21 (mL/min/1.73m2); Glucose 137 mg/dL (74-106); Potassium 4.5 mmol/L (3.5-5.1); Sodium 136 mmol/L (136-145)
== END 2021-06-14 19:40 | disposition home or self-care (01) ==
LOC: LBN 19:39
PROVIDERS: Visit Provider Nurse Practitioner Family
DX: F02.80 Dementia in other diseases classified elsewhere, unspecified severity, without behavioral disturbance, psychotic disturbance, mood disturbance, and anxiety (principal)
CPT/HCPCS: 80048

== ENCOUNTER 2021-06-15 08:26 | Outpatient (REF) | payer MEDICARE, MEDICAID, SELFPAY | END 2021-06-15 08:27 | disposition home or self-care (01) | LOC: LBN 08:26 | PROVIDERS: Visit Provider Nurse Practitioner Family | DX: R82.998 Other abnormal findings in urine (principal); R41.9 Unspecified symptoms and signs involving cognitive functions and awareness | CPT/HCPCS: 87086 ==

== ENCOUNTER 2021-06-24 15:53 | Outpatient (REF) | payer MEDICARE, OTHER, MEDICAID, SELFPAY ==
[2021-06-24 16:08] LABS: Abs Immature Grans 0.04 10^3/uL (0.0-0.06); Absolute Basophil Count 0.03 10^3/uL (0.0-0.2); Absolute Eosinophil Count 0.12 10^3/uL (0.0-0.7); Absolute Lymphocyte Count 1.27 10^3/uL (1.2-3.4); Absolute Monocyte Count 0.48 10^3/uL (0.1-0.8); Absolute Neutrophil Count 5.59 10^3/uL (1.2-6.7); Basophils % 0.4; Eosinophils % 1.6; HCT 33.9 % (36.0-46.0); HGB 10.6 g/dL (11.2-15.7); Immature Grans % 0.5; Lymphocytes % 16.9; MCH 28.3 pg (27.0-33.0); MCHC 31.3 % (32.0-36.0); MCV 90 fL (80-95); MPV 10.6 fL (8.0-11.0); Monocytes % 6.4; Neutrophils % 74.2; Platelet Count 285 10^3/uL (130-400); RBC 3.75 10^6/uL (3.93-5.22); RDW 14.7 % (11.7-14.6); RDW-SD 49.2 fL; WBC 7.53 10^3/uL (4.4-10.8)
[2021-06-24 16:18] LABS: Anion Gap 9.7 mmol/L (3-11); BUN 17 mg/dL (7-18); CO2 23.3 mmol/L (21.0-32.0); CREATININE 0.8 mg/dL (0.55-1.02); Calcium 8.1 mg/dL (8.5-10.1); Chloride 106 mmol/L (98-107); Glucose 141 mg/dL (74-106); Potassium 4.2 mmol/L (3.5-5.1); Sodium 139 mmol/L (136-145)
== END 2021-06-24 15:54 | disposition home or self-care (01) ==
LOC: LBN 15:53
PROVIDERS: Visit Provider Nurse Practitioner Family
DX: E87.5 Hyperkalemia (principal); E83.51 Hypocalcemia; E27.40 Unspecified adrenocortical insufficiency; Z79.899 Other long term (current) drug therapy
CPT/HCPCS: 80048; 85025

== ENCOUNTER 2021-07-01 17:34 | Outpatient (REF) | payer MEDICARE, OTHER, SELFPAY ==
[2021-07-01 18:58] LABS: Abs Immature Grans 0.03 10^3/uL (0.0-0.06); Absolute Basophil Count 0.03 10^3/uL (0.0-0.2); Absolute Eosinophil Count 0.09 10^3/uL (0.0-0.7); Absolute Lymphocyte Count 2.47 10^3/uL (1.2-3.4); Absolute Monocyte Count 0.71 10^3/uL (0.1-0.8); Absolute Neutrophil Count 6.33 10^3/uL (1.2-6.7); Basophils % 0.3; Eosinophils % 0.9; HGB 11.2 g/dL (11.2-15.7); Immature Grans % 0.3; Lymphocytes % 25.6; MCH 28.8 pg (27.0-33.0); MCV 90 fL (80-95); MPV 10.8 fL (8.0-11.0); Monocytes % 7.3; Neutrophils % 65.6; Platelet Count 300 10^3/uL (130-400); RBC 3.89 10^6/uL (3.93-5.22); RDW 14.8 % (11.7-14.6); RDW-SD 48.9 fL; WBC 9.66 10^3/uL (4.4-10.8)
[2021-07-01 19:50] LABS: Anion Gap 5.4 mmol/L (3-11); BUN 14 mg/dL (7-18); CO2 29.6 mmol/L (21.0-32.0); CREATININE 0.8 mg/dL (0.55-1.02); Chloride 102 mmol/L (98-107); Glucose 106 mg/dL (74-106); Potassium 4.8 mmol/L (3.5-5.1); Sodium 137 mmol/L (136-145)
== END 2021-07-01 17:35 | disposition home or self-care (01) ==
LOC: LBN 17:34
PROVIDERS: Visit Provider Family Medicine
DX: E87.5 Hyperkalemia (principal); I10 Essential (primary) hypertension; E27.40 Unspecified adrenocortical insufficiency; I48.0 Paroxysmal atrial fibrillation
CPT/HCPCS: 80048; 85025

== ENCOUNTER → 2021-07-17 12:39 | Outpatient (BNVA) | payer MEDICARE, OTHER, SELFPAY | PROVIDERS: Visit Provider Psychiatry & Neurology Neurology | DX: G43.019 Migraine without aura, intractable, without status migrainosus (principal); R41.3 Other amnesia | CPT/HCPCS: 99214 ==

== ENCOUNTER 2021-12-28 00:33 | Emergency (ER) | payer MEDICARE, OTHER, SELFPAY ==
--- NOTE | 2021-12-28 00:15 | RT.EKG_ITS ---
APPROVED REPORT Exam: Resting ECG Reason for Exam: unwitnessed fall Patient Location: E HR:107 bpm ECG Measurements Heart Rate 107 AXIS ND 155 P 6 QRSd 80 QRS 27 QT 314 T 89 QTc 420 Conclusion Sinus tachycardia...rate> 99
[2021-12-28 00:30] VITALS: BP 119/91; PULSE 106; RESP 24; TEMP 36.6; O2SAT 92
--- NOTE | 2021-12-28 00:45 | W.ED.GENAD ---
Discharge Plan Disposition Patient Disposition: SNF (LEVEL 1) [facility] Discharge Details Clinical Impression: Fall Primary Care Provider: Ortiz Vasquez ED Provider: Mikel Mayers Magna Meds and New Rx's Prescriptions: Continued Centrum Silver Women 8 mg iron-400 mcg-300 mcg tablet 1 tab PO DAILY omeprazole 20 mg capsule,delayed release(DR/EC) 20 mg PO DAILY Qty: 90 3RF bisacodyl [Dulcolax (bisacodyl)] 10 mg suppository 10 mg ND DAILY PRN magnesium hydroxide 400 mg/5 mL suspension 5 ml PO DAILY PRN metoprolol succinate 50 mg tablet extended release 24 hr 50 mg PO DAILY prednisone 5 mg tablet 5 mg PO DAILY Qty: 90 3RF sodium chloride 1 gram tablet 1,000 mg PO DAILY Qty: 90 3RF coenzyme Q10 [CoQ-10] 100 mg Capsule 200 mg PO DAILY aspirin 81 mg Tablet,Delayed Release (Dr/Ec) 81 mg PO DAILY Qty: 100 0RF Acetaminophen [Tylenol] 1,000 mg PO Q8H Qty: 0 0RF quetiapine 25 mg Tablet 25 mg PO HS Qty: 60 0RF quetiapine 25 mg Tablet 25 mg PO BID PRN PRNQty: 0 0RF amlodipine 5 mg Tablet 5 mg PO DAILY Qty: 30 0RF gabapentin 300 mg Capsule 600 mg PO HS Qty: 0 0RF gabapentin 300 mg Capsule 300 mg PO DAILY PRN PRN (Reason: Headache) Qty: 0 0RF mirtazapine 15 mg Tablet 7.5 mg PO DAILY@1700 Qty: 30 0RF gabapentin 300 mg capsule 300 mg PO DAILY Qty: 120 11RF Rx Instructions: 300mg am and 600mg HS; ok to take 300mg once daily prn headache ascorbic acid (vitamin C) [Vitamin C] 500 mg Tablet 500 mg PO DAILY naproxen sodium 550 mg Tablet 500 mg PO Q12H PRN zinc 50 mg Tablet 50 mg PO DAILY cholecalciferol (vitamin D3) [Vitamin D3] 25 mcg (1,000 unit) Tablet 50 mcg PO DAILY Discharge Instructions Additional Instructions: you were given a one time dose of an antibiotic for a possible urinary tract infection follow up with your primary care provider as needed Medical Decision Making 86 yo female who has a hx of dementia and resides at the [facility] comes in after an unwitnessed fall. She was found on the ground next to her walker and was last seen prior to this about ten minutes before being found per report. She was awake when she was found. She was sent here for an evaluation. She arrives altert, oriented to place but not time or year. She states she has a mild headache but states she gets frequent headaches for which she is given tylenol. She denies neck pain, chest pain, abdomen pain or extremity pain. She had a ua done prior to my exam with nursing which is still pending. She has a colst form filled out that is marked as dnr/dni, and also marked comfort measures only and do not transfer to the hospital, given this will defer any additional testing, if ua negative will d/c back to [facility] ua with leukocytes, given one time dose of fosfomycin, will be d/c'd back to rehab Differential Diagnosis Differential Diagnosis: dementia, fall Medical Records Medical records reviewed: Yes I reviewed the patient's medical records. ECG Data Attestation: I personally reviewed and interpreted this ECG (s) as follows: Prior ECG tracings: available for review Interpretation: sinus tachycardia, rate of 107, no stemi HPI General Mode of arrival: EMS. Date/Time Provider Initiated Documentation: 12/28/21 00:45. Information obtained by: EMS. History of Present Illness 86 year old F presents to the emergency department with the chief complaint of fall, described as mild, and it has been constant. No relieving factors improve symptom(s), No exacerbating factors reported . Patient did receive the following treatments prior to arrival, none Related Data Home Medications Medication Instructions Recorded Confirmed coenzyme Q10 100 mg capsule 200 mg PO DAILY 10/04/18 07/17/21 (CoQ-10) aspirin 81 mg tablet,delayed 81 mg PO DAILY #100 tabs 09/17/19 07/17/21 release omeprazole 20 mg capsule,delayed 20 mg PO DAILY #90 caps 07/09/20 07/17/21 release prednisone 5 mg tablet 5 mg PO DAILY #90 tabs 11/15/20 07/17/21 multivit with 1 tab PO DAILY 12/24/20 07/17/21 fkofwofb-kzff-YN-lutein 8 mg iron-400 mcg-300 mcg tablet (Centrum Silver Women) sodium chloride 1 gram tablet 1,000 mg PO DAILY electrolyte 02/05/21 07/17/21 replenishment #90 tabs Acetaminophen [Tylenol] 1,000 mg PO Q8H ##0 03/03/21 07/17/21 amlodipine 5 mg tablet 5 mg PO DAILY #30 tabs 03/03/21 07/17/21 gabapentin 300 mg capsule 300 mg PO DAILY #120 caps 03/03/21 07/17/21 gabapentin 300 mg capsule 300 mg PO DAILY PRN PRN Headache 03/03/21 07/17/21 #0 caps gabapentin 300 mg capsule 600 mg PO HS #0 caps 03/03/21 07/17/21 mirtazapine 15 mg tablet 7.5 mg PO DAILY@1700 #30 tabs 03/03/21 07/17/21 quetiapine 25 mg tablet 25 mg PO BID PRN PRN #0 tabs 03/03/21 07/17/21 quetiapine 25 mg tablet 25 mg PO HS #60 tabs 03/03/21 07/17/21 bisacodyl 10 mg rectal suppository 10 mg ND DAILY PRN 03/18/21 07/17/21 (Dulcolax (bisacodyl)) magnesium hydroxide 400 mg/5 mL 5 ml PO DAILY PRN 03/18/21 07/17/21 oral suspension ascorbic acid (vitamin C) 500 mg 500 mg PO DAILY 05/18/21 07/17/21 tablet (Vitamin C) cholecalciferol (vitamin D3) 25 50 mcg PO DAILY 05/18/21 07/17/21 mcg (1,000 unit) tablet (Vitamin D3) naproxen sodium 550 mg tablet 500 mg PO Q12H PRN 05/18/21 07/17/21 zinc 50 mg tablet 50 mg PO DAILY 05/18/21 07/17/21 metoprolol succinate 50 mg 50 mg PO DAILY 07/17/21 07/17/21 tablet,extended release 24 hr Previous Rx's Medication Instructions Recorded aspirin 81 mg tablet,delayed 81 mg PO DAILY #100 tabs 09/17/19 release omeprazole 20 mg capsule,delayed 20 mg PO DAILY #90 caps 07/09/20 release prednisone 5 mg tablet 5 mg PO DAILY #90 tabs 11/15/20 sodium chloride 1 gram tablet 1,000 mg PO DAILY electrolyte 02/05/21 replenishment #90 tabs Acetaminophen [Tylenol] 1,000 mg PO Q8H ##0 03/03/21 amlodipine 5 mg tablet 5 mg PO DAILY #30 tabs 03/03/21 gabapentin 300 mg capsule 300 mg PO DAILY #120 caps 03/03/21 gabapentin 300 mg capsule 300 mg PO DAILY PRN PRN Headache 03/03/21 #0 caps gabapentin 300 mg capsule 600 mg PO HS #0 caps 03/03/21 mirtazapine 15 mg tablet 7.5 mg PO DAILY@1700 #30 tabs 03/03/21 quetiapine 25 mg tablet 25 mg PO BID PRN PRN #0 tabs 03/03/21 quetiapine 25 mg tablet 25 mg PO HS #60 tabs 03/03/21 Allergies Allergy/AdvReac Type Severity Reaction Status Date / Time carbamazepine AdvReac Severe Confusion Verified 07/17/21 13:01 and disorientation morphine AdvReac Intermediate made my Verified 07/17/21 13:01 chest feel likie I was in a vice General HARSHAD: 3 Review of Systems All systems reviewed & are unremarkable except as noted in HPI and below Constitutional Constitutional: Denies chills and Denies fever(s) Cardiovascular Cardiovascular: Denies chest pain and Denies dyspnea Respiratory Respiratory: Denies cough and Denies dyspnea Gastrointestinal Gastrointestinal: Denies abdominal pain and Denies vomiting Integumentary/Breasts Skin/Breast: Denies rash PFSH All Active Problems (Updated 12/28/21 @ 01:06 EDT by Mikel Mayers MD) Fall (Acute) Right ankle sprain (Acute) Advance directive indicates patient wish for co-gyc-uzpfxeay resuscitation status (Acute) Elevated BP without diagnosis of hypertension (Acute) Memory loss (Acute) Migraine headache without aura (Acute) Generalized weakness (Acute) Spinal stenosis (Acute) Atrial flutter (Chronic) paroxysmal, Atrial fib/flutter, rate controlled, not on anticoagulation. Zio Patch ordered. Premature beats (Chronic) 10/29/10 H/O multiples pvc's Osteoporosis (Chronic) Irritable colon (Chronic) Celiac disease (Chronic 06/12/13) Medical History Abnormal mammography (03/27/13) Adrenal insufficiency Ataxia Chronic headache Closed head injury Cortical cataract of left eye Diverticulosis of colon without diverticulitis DVT (deep venous thrombosis) s/p hemorrhoid banding Epiretinal membrane (ERM) of left eye Epiretinal membrane (ERM) of right eye Fall GERD (gastroesophageal reflux disease) History of pelvic fracture Hypertension Hypokalemia Hyponatremia Inflammation of Sacroiliac Joint Lumbosacral radiculopathy due to degenerative joint disease of spine Nuclear sclerotic cataract of left eye Osteoarthritis Pancreatic lesion Paroxysmal atrial fibrillation with rapid ventricular response Pelvic fracture PMR (polymyalgia rheumatica) Polymyalgia rheumatica (08/14/14) Post concussive syndrome Pyloric ulcer associated with Helicobacter pylori (01/21/05) Right lumbar radiculopathy (07/05/15) SIADH (syndrome of inappropriate ADH production) Urine sodium 56. Urine osmolality 460 Will need f/u lab and continued fluid restriction. Cause at this point is idiopathic. SIRS (systemic inflammatory response syndrome) Subconjunctival hemorrhage of left eye Trochanteric bursitis of both hips Surgical History Closed right hip fracture (05/03/19) S/P ORIF with cannulated screw fixation on 05/04/2019 Colonoscopy - MAC Fracture of hip, left, closed (02/26/21) s/p left hip intramedullary nail DOS: 02/27/2021 Hemorrhoidal Banding (04/27/17) Status post cataract extraction and insertion of intraocular lens of left eye (05/02/18) Status post cataract extraction and insertion of intraocular lens of right eye (05/16/18) Status post cholecystectomy Family History Mother No problems noted. Father Neoplasm PANCREATIC Sister Neoplasm BREAST/THYROID Social History Smoking/Tobacco Use Status: Never Smoking risk assessment performed?: Yes Alcohol Intake: never Drug use: Never Substance use type: does not use Counseling given: No Counseling provided: none Caregiver/Support person: Yes Household members: caregiver Housing: house Number of Children: 3 number of grandchildren: 5 Communication Needs: None Do you need help understanding health information?: Never current occupation: [employer] Pets and animals: No Sexually active: No Do you think of yourself as: straight/heterosexual Current gender identity: female What is your relationship status?: How often do you talk on the phone with friends or family?: three or more times per week How often do you get together with friends or relatives?: three or more times per week How often do you attend druze or rastafarian services?: decline to answer Do you belong to any clubs or organized social groups?: no Panel score (0-1 are the most socially isolated patients): 1 What type of physical activity do you participate in: none Frequency: does not exercise Jennifer/Shinto: Catholic Special jennifer needs: No Seatbelt use: always Helmet use: No Drive intox or ride w/intox 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 Do you feel safe at home: Yes Do you feel safe in your relationship?: Yes Exam Const General: no acute distress Orientation: alert HENAZ Head: normal to inspection Ears: external ears normal General nose exam: external nose normal Mouth: moist mucous membranes Eyes General: appearance normal, both eyes and all related structures Neck Neck: normal visual inspection Resp Effort & Inspection: normal respiratory effort and able to speak in complete sentences Cardio Rate: regular rate Skin General skin exam: no rashes or lesions noted Neuro General: patient alert Extrem General: normal to inspection
[2021-12-28 00:58] LABS: Bilirubin Negative (Negative); Blood Moderate (Negative); Clarity Cloudy (Clear); Glucose Negative (Negative); Ketones Negative (Negative); Leukocyte Esterase Small (Negative); Nitrite Negative (Negative); Specific Gravity >= 1.030 (1.005-1.025); Urobilinogen 0.2 EU/dL (Up TO 0.2)
[2021-12-28] MEDS: Acetaminophen 500 MG TAB 1000 MG PO (01:05)
[2021-12-28 01:07] LABS: Bacteria Many HPF (Negative); C & S Indicated? Yes; Casts 3-5 Hyaline LPF (Negative); Crystals Negative HPF (Negative); Epithelial Cells Rare HPF (Negative); Mucus Negative (Negative); WBC >50 HPF (0-5)
[2021-12-28] MEDS: Fosfomycin Tromethamine 3 GM PACKET PO (01:13)
== END 2021-12-28 01:23 | disposition skilled nursing facility (03) ==
PROVIDERS: Emergency Provider Emergency Medicine; PCP Family Medicine
DX: G89.11 Acute pain due to trauma (principal); R51.9 Headache, unspecified; R82.998 Other abnormal findings in urine; W19.XXXA Unspecified fall, initial encounter
CPT/HCPCS: 36415; 87077; 93005; 99283; 81003; 81015; 87086; 87186; 93010; J3490

== ENCOUNTER 2021-12-31 16:39 | Outpatient (REF) | payer MEDICARE, OTHER, SELFPAY ==
[2021-12-31 17:27] LABS: Abs Immature Grans 0.06 10^3/uL (0.0-0.06); Absolute Basophil Count 0.03 10^3/uL (0.0-0.2); Absolute Eosinophil Count 0.01 10^3/uL (0.0-0.7); Absolute Lymphocyte Count 0.85 10^3/uL (1.2-3.4); Absolute Monocyte Count 0.64 10^3/uL (0.1-0.8); Absolute Neutrophil Count 7.83 10^3/uL (1.2-6.7); Basophils % 0.3; Eosinophils % 0.1; HCT 35.8 % (36.0-46.0); HGB 11.1 g/dL (11.2-15.7); Immature Grans % 0.6; MCH 29.4 pg (27.0-33.0); MCV 95 fL (80-95); Monocytes % 6.8; Neutrophils % 83.2; Platelet Count 320 10^3/uL (130-400); RBC 3.78 10^6/uL (3.93-5.22); RDW-SD 44.9 fL; WBC 9.42 10^3/uL (4.4-10.8)
== END 2021-12-31 16:40 | disposition home or self-care (01) ==
LOC: LBN 16:39
PROVIDERS: PCP Family Medicine; Visit Provider Family Medicine
DX: I48.0 Paroxysmal atrial fibrillation (principal)
CPT/HCPCS: 80048; 85025

== ENCOUNTER 2022-01-03 23:22 | Outpatient (REF) | payer MEDICARE, OTHER, MEDICAID, SELFPAY ==
[2022-01-03 23:47] LABS: Abs Immature Grans 0.16 10^3/uL (0.0-0.06); Absolute Basophil Count 0.03 10^3/uL (0.0-0.2); Absolute Eosinophil Count 0.13 10^3/uL (0.0-0.7); Absolute Lymphocyte Count 1.89 10^3/uL (1.2-3.4); Absolute Monocyte Count 0.77 10^3/uL (0.1-0.8); Absolute Neutrophil Count 7.16 10^3/uL (1.2-6.7); Basophils % 0.3; Eosinophils % 1.3; HCT 34.3 % (36.0-46.0); HGB 11.2 g/dL (11.2-15.7); Immature Grans % 1.6; Lymphocytes % 18.6; MCH 30.1 pg (27.0-33.0); MCHC 32.7 % (32.0-36.0); MCV 92 fL (80-95); MPV 10.6 fL (8.0-11.0); Monocytes % 7.6; Neutrophils % 70.6; Platelet Count 303 10^3/uL (130-400); RBC 3.72 10^6/uL (3.93-5.22); RDW-SD 43.6 fL; WBC 10.14 10^3/uL (4.4-10.8)
[2022-01-03 23:56] LABS: ALT 20 U/L (14-59); AST 20 U/L (15-37); Albumin 3.2 g/dL (3.4-5.0); Alkaline Phosphatase 113 U/L (46-116); Anion Gap 8.8 mmol/L (3-11); BUN 16 mg/dL (7-18); Bilirubin, Direct 0.1 mg/dL (0.0-0.2); Bilirubin, Total 0.2 mg/dL (0.2-1.0); CO2 28.2 mmol/L (21.0-32.0); Calcium 8.5 mg/dL (8.5-10.1); Chloride 103 mmol/L (98-107); Estimated GFR 54.87 (mL/min/1.73m2); Glucose 107 mg/dL (74-106); Potassium 4.4 mmol/L (3.5-5.1); Sodium 140 mmol/L (136-145); Total Protein 6.5 g/dL (6.4-8.2)
== END 2022-01-03 23:23 | disposition home or self-care (01) ==
LOC: LBO 23:22
PROVIDERS: PCP Family Medicine; Visit Provider Family Medicine
DX: I48.0 Paroxysmal atrial fibrillation (principal); I10 Essential (primary) hypertension; E27.49 Other adrenocortical insufficiency
CPT/HCPCS: 80048; 80076; 85025

== ENCOUNTER 2022-05-19 23:42 | Outpatient (REF) | payer MEDICARE, MEDICAID, SELFPAY ==
[2022-05-19 16:39] LABS: Abs Immature Grans 0.04 10^3/uL (0.0-0.06); Absolute Basophil Count 0.02 10^3/uL (0.0-0.2); Absolute Eosinophil Count 0.11 10^3/uL (0.0-0.7); Absolute Monocyte Count 0.45 10^3/uL (0.1-0.8); Absolute Neutrophil Count 8.95 10^3/uL (1.2-6.7); Basophils % 0.2; HCT 34.9 % (36.0-46.0); HGB 11.4 g/dL (11.2-15.7); Immature Grans % 0.4; MCH 29.2 pg (27.0-33.0); MCHC 32.7 % (32.0-36.0); MCV 89 fL (80-95); MPV 11.2 fL (8.0-11.0); Monocytes % 4.1; Neutrophils % 82.3; Platelet Count 230 10^3/uL (130-400); RBC 3.91 10^6/uL (3.93-5.22); RDW 13.2 % (11.7-14.6); RDW-SD 42.9 fL; WBC 10.87 10^3/uL (4.4-10.8)
[2022-05-19 16:59] LABS: ALT 17 U/L (14-59); AST 26 U/L (15-37); Albumin 3.2 g/dL (3.4-5.0); Alkaline Phosphatase 81 U/L (46-116); Anion Gap 8.4 mmol/L (3-11); BUN 14 mg/dL (7-18); Bilirubin, Total 0.3 mg/dL (0.2-1.0); CO2 25.6 mmol/L (21.0-32.0); Calcium 8.4 mg/dL (8.5-10.1); Chloride 102 mmol/L (98-107); Estimated GFR 54.87 (mL/min/1.73m2); Glucose 99 mg/dL (74-106); Magnesium 2.2 mg/dL (1.8-2.4); Potassium 4.3 mmol/L (3.5-5.1); Sodium 136 mmol/L (136-145); Total Protein 6.3 g/dL (6.4-8.2)
== END 2022-05-19 23:43 | disposition home or self-care (01) ==
LOC: LBN 23:42
PROVIDERS: PCP Family Medicine; Visit Provider Family Medicine
DX: M62.81 Muscle weakness (generalized) (principal)
CPT/HCPCS: 80053; 83735; 85025

== ENCOUNTER 2022-05-25 16:19 | Outpatient (REF) | payer MEDICARE, MEDICAID, SELFPAY ==
[2022-05-25 14:50] LABS: COVID-19 PCR Negative (Negative); Influenza A PCR Negative (Negative); Influenza B PCR Negative (Negative); RSV PCR Negative (Negative)
[2022-05-25 14:54] LABS: Source Nasopharynx
== END 2022-05-25 16:20 | disposition home or self-care (01) ==
LOC: LBN 16:19
PROVIDERS: PCP Family Medicine; Visit Provider Family Medicine
DX: M62.81 Muscle weakness (generalized) (principal); J06.9 Acute upper respiratory infection, unspecified; Z20.822 Contact with and (suspected) exposure to COVID-19
CPT/HCPCS: 87637

== ENCOUNTER 2022-07-01 10:39 | Outpatient (REF) | payer MEDICARE, MEDICAID, SELFPAY ==
[2022-07-01 12:00] LABS: Abs Immature Grans 0.05 10^3/uL (0.0-0.06); Absolute Basophil Count 0.06 10^3/uL (0.0-0.2); Absolute Eosinophil Count 0.45 10^3/uL (0.0-0.7); Absolute Lymphocyte Count 3.25 10^3/uL (1.2-3.4); Absolute Neutrophil Count 7.27 10^3/uL (1.2-6.7); Basophils % 0.5; Eosinophils % 3.7; HCT 37.7 % (36.0-46.0); HGB 12.2 g/dL (11.2-15.7); Immature Grans % 0.4; Lymphocytes % 26.9; MCH 29.2 pg (27.0-33.0); MCHC 32.4 % (32.0-36.0); MCV 90 fL (80-95); MPV 11.2 fL (8.0-11.0); Monocytes % 8.3; Neutrophils % 60.2; Platelet Count 298 10^3/uL (130-400); RBC 4.18 10^6/uL (3.93-5.22); RDW 14.2 % (11.7-14.6); RDW-SD 46.9 fL; WBC 12.08 10^3/uL (4.4-10.8)
[2022-07-01 12:11] LABS: ALT 18 U/L (14-59); AST 19 U/L (15-37); Albumin 3.5 g/dL (3.4-5.0); Alkaline Phosphatase 100 U/L (46-116); Anion Gap 6.2 mmol/L (3-11); BUN 18 mg/dL (7-18); Bilirubin, Direct 0.1 mg/dL (0.0-0.2); Bilirubin, Total 0.3 mg/dL (0.2-1.0); CO2 25.8 mmol/L (21.0-32.0); CREATININE 0.8 mg/dL (0.55-1.02); Chloride 106 mmol/L (98-107); Estimated GFR 71.71 (mL/min/1.73m2); Glucose 118 mg/dL (74-106); Potassium 3.7 mmol/L (3.5-5.1); Sodium 138 mmol/L (136-145); Total Protein 7.3 g/dL (6.4-8.2)
== END 2022-07-01 10:40 | disposition home or self-care (01) ==
LOC: LBN 10:39
PROVIDERS: PCP Family Medicine; Visit Provider Physician Assistant
DX: M62.81 Muscle weakness (generalized) (principal); I10 Essential (primary) hypertension
CPT/HCPCS: 80048; 80076; 85025

== ENCOUNTER 2023-01-19 20:12 | Outpatient (REF) | payer MEDICARE, MEDICAID, SELFPAY ==
[2023-01-19 20:29] LABS: BUN 18 mg/dL (7-18); CREATININE 0.9 mg/dL (0.55-1.02); Calcium 9.6 mg/dL (8.5-10.1); Chloride 104 mmol/L (98-107); Estimated GFR 61.87 (mL/min/1.73m2); Glucose 109 mg/dL (74-106); Potassium 5.1 mmol/L (3.5-5.1); Sodium 140 mmol/L (136-145)
== END 2023-01-19 20:13 | disposition home or self-care (01) ==
LOC: LBN 20:12
PROVIDERS: PCP Family Medicine; Visit Provider Nurse Practitioner Adult Health
DX: I10 Essential (primary) hypertension (principal)
CPT/HCPCS: 80048

== ENCOUNTER → 2023-04-14 14:17 | Outpatient (CLI) | payer MEDICARE, MEDICAID, SELFPAY ==
--- NOTE | 2023-04-14 | DI.RAD_ITS ---
Exam(s) XR HIP RT COMPLETE AP PELVIS EXAM: XR HIP RT COMPLETE AP PELVIS CLINICAL HISTORY: Rt Hip pain. TECHNIQUE: 2D digital imaging was performed. COMPARISON: CR,XR XR PELVIS AP from 05/18/2021 FINDINGS: 3 views Again noted is a previously described hardware in both hips comprised of 3 screws in the right femora l neck across healed femoral neck fracture site as well as a lag screw in the opposite-left hip suppo rted by an intramedullary lupe which is not completely included in the field of view. There is some d ystrophic calcification above the left hip medially above the superior aspect of the lupe. There is n o joint space narrowing in the right hip. Mild joint space narrowing in the left hip. There is a healed fracture site in the inferior pubic ramus on the right side. No acute fractures ev ident. Chronic degenerative disc disease noted. IMPRESSION: As above. DATA REPOSITORY: RADIATION DOSE DELIVERED:
== END ==
PROVIDERS: PCP Family Medicine; Visit Provider Nurse Practitioner Family
DX: Z98.890 Other specified postprocedural states (principal); M16.12 Unilateral primary osteoarthritis, left hip
CPT/HCPCS: 73502

== ENCOUNTER 2023-07-01 17:05 | Emergency (ER) | payer MEDICARE, MEDICAID, SELFPAY ==
--- NOTE | 2023-07-01 17:00 | DI.CT_ITS ---
Exam(s) CT CHEST/ABD/PEL W EXAM: CT CHEST/ABD/PEL W CLINICAL HISTORY: epigastric pain, ? SOB, rigors. TECHNIQUE: Imaging Protocol: Axial computed tomography images with coronal and sagittal reformatted images were created and reviewed CONTRAST MATERIAL: Intravenous: Omnipaque 350 Contrast volume:100 ml Oral: no COMPARISON: CT CT ABDOMEN PELVIS W from 10/14/[address] ABDOMEN PELVIS WO from 09/14/2019 FINDINGS: CHEST: Exam limited by respiratory motion and poor pulmonary inflation. Tracheobronchial tree: Patent. Pulmonary parenchyma: Focal consolidation seen at medial right lung base. Dependent changes at the l eft lung base. No consolidation or dominant measurable mass. Pleura: No effusion or pneumothorax. Lymph nodes: Within normal limits. Aorta: Thoracic portion non-dilated. Pulmonary arteries: No central pulmonary emboli. Heart: Enlarged. Mitral annular calcification. Mild coronary artery calcifications. No pericardial effusion. Bones: Severe degenerative changes of the right shoulder. Adjacent joint space loose bodies. Joint effusion. No definite arm bony erosion. Degenerative changes in the spine no lytic or blastic lesio ns.Mild T5 and T8 compression fractures. Soft tissues: Unremarkable. ABDOMEN and PELVIS: Liver: Normal density. No measurable mass. Gallbladder and biliary tract: Status post cholecystectomy. No biliary dilatation. Pancreas: 11 x 7 millimeter low-density circumscribed lesion in the midbody may represent a cyst vers us small mass. Not present on previous exams. Moderate atrophy. No abnormal calcifications or infl ammatory process. Spleen: Normal. Kidneys: Normal size, contour and axis. No radiodense stones. No obstructive uropathy. No suspicious masses seen. Adrenal glands: No masses seen. Aorta: Abdominal portion non-dilated. Heavily calcified. Lymph nodes: Within normal limits. Soft tissues: Unremarkable. Bladder: Unremarkable. Bowel: Sigmoid diverticulosis. No evidence of diverticulitis. No obstruction or bowel wall thickeni ng. Normal quantity of stool. Peritoneal cavity: No ascites. No focal collection. No mesenteric inflammatory response. Bones: Scoliosis and degenerative changes. Bilateral L5 pars defects and mild L5 S1 spondylolisthesi s, unchanged. Old right pubic ramus fractures. Hardware in both proximal femurs. Reproductive organs: Within normal limits. IMPRESSION: Right lower lobe infiltrate. Severe degenerative changes of the right shoulder and joint effusion. Septic joint not excluded. No acute abnormality in the abdomen or pelvis. 11 x 7 millimeter on cystic lesion in the body of the pancreas. MRI could be considered for further evaluation. RADIATION DOSE DELIVERED: 1,260.06mGy.cm Total DLP DATA REPOSITORY: All CT scans at this facility are submitted to the National Radiology Data Registry (NRDR) Dose Index Registry (DIR) with the [employer] (A[employer]). RADIATION OPTIMIZATION: All CT scans at this facility use at least one of these dose optimization te chniques: automated exposure control; mA and/or kV adjustment per patient size (includes targeted exa ms where dose is matched to clinical indication); or iterative reconstruction.
--- NOTE | 2023-07-01 17:00 | DI.RAD_ITS ---
Exam(s) XR SHOULDER RT COMPLETE 2+V XR HUMERUS RT EXAM: XR SHOULDER RT COMPLETE 2+V CLINICAL HISTORY: R shoulder pain. TECHNIQUE: 2D digital imaging was performed. Six views. COMPARISON: CR,XR XR HUMERUS RT from 07/01/2023 FINDINGS: BONES: No acute fracture is present. No bony destructive lesion is seen. Degenerative spurring at hu meral head. JOINTS: No dislocation present. Severe degenerative changes are present at the glenohumeral joint. The AC joint is unremarkable. The elbow is grossly unremarkable. SOFT TISSUE: Calcifications superior to the humeral head may represent calcific tendinosis. Smoothly marginated calcifications are noted adjacent to the posterior aspect of the humeral head which appea r chronic could represent loose bodies. IMPRESSION: Severe degenerative changes of the glenohumeral joint. No evidence of acute fracture in the shoulder or humerus. DATA REPOSITORY: RADIATION DOSE DELIVERED:
--- NOTE | 2023-07-01 17:00 | RT.EKG_ITS ---
APPROVED REPORT Exam: Resting ECG Reason for Exam: Chest Pain Patient Location: E HR:71 bpm ECG Measurements Heart Rate 71 AXIS CO 168 P 12 QRSd 81 QRS 13 QT 400 T 54 QTc 435 Conclusion Sinus rhythm. 71 NO STEMI
[2023-07-01 17:08] VITALS: BP 137/60; PULSE 79; RESP 18; TEMP 36.6; O2SAT 95
[2023-07-01 17:10] VITALS: BP 137/60; PULSE 79; RESP 18; TEMP 36.9; O2SAT 95
--- NOTE | 2023-07-01 17:11 | ED.GENADUL_ITS ---
Discharge Plan Disposition Patient Disposition[facility]) Condition: Stable Discharge Details Clinical Impression: Acute UTI, RLL pneumonia Primary Care Provider: Ortiz Vasquez ED Provider: Erum Mar Home Meds and New Rx's Prescriptions: New levofloxacin 750 mg tablet 750 mg PO DAILY Qty: 5 0RF No Action omeprazole 20 mg capsule,delayed release(DR/EC) 20 mg PO DAILY Qty: 90 3RF bisacodyl [Dulcolax (bisacodyl)] 10 mg suppository 10 mg WV DAILY PRN magnesium hydroxide 400 mg/5 mL suspension 5 ml PO DAILY PRN metoprolol succinate 50 mg tablet extended release 24 hr 50 mg PO DAILY prednisone 5 mg tablet 5 mg PO DAILY Qty: 90 3RF sodium chloride 1 gram tablet 1,000 mg PO DAILY Qty: 90 3RF aspirin 81 mg Tablet,Delayed Release (Dr/Ec) 81 mg PO DAILY Qty: 100 0RF Acetaminophen [Tylenol] 1,000 mg PO Q8H Qty: 0 0RF amlodipine 5 mg Tablet 5 mg PO DAILY Qty: 30 0RF gabapentin 300 mg Capsule 600 mg PO HS Qty: 0 0RF gabapentin 300 mg Capsule 300 mg PO DAILY PRN PRN (Reason: Headache) Qty: 0 0RF mirtazapine 15 mg Tablet 7.5 mg PO DAILY@1700 Qty: 30 0RF gabapentin 300 mg capsule 300 mg PO DAILY Qty: 120 11RF Rx Instructions: 300mg am and 600mg HS; ok to take 300mg once daily prn headache naproxen sodium 550 mg Tablet 500 mg PO Q12H PRN cholecalciferol (vitamin D3) [Vitamin D3] 25 mcg (1,000 unit) Tablet 50 mcg PO DAILY Discharge Instructions Additional Instructions: Your workup today was notable for a urinary tract infection and likely right lower lobe pneumonia. You are prescribed antibiotics for treatment of this (levofloxacin). Please follow up with your primary care provider for reassessment within the week. On CT scan, a prancreatic lesion was noted incidentally. This is unlikely to be related to your symptoms today. This may be something you would like to monitor. You may continue to use tylenol as needed for discomfort. Return to emergency care as needed. HPI General Date/Time Provider Initiated Documentation: 07/01/23 18:18 . HPI Narrative: Colleen is an 87-year-old female with history of dementia, A-fib, HTN, osteoporosis, and PMR who presents to the emergency department today for evaluation of epigastric pain. She has dementia, unable to elicit clear history from patient, however she is currently reporting right arm pain (as well as generalized body aches), chills all over/feeling cold, and feeling like her head is not there. She denies chest pain or shortness of breath, acknowledges that she had this previously. History was able to be obtained from [facility] and rehab. She currently denies headache, nausea/vomiting, abdominal pain. Unable to recall bowel or bladder function. History also obtained from [facility] (Marquita MICHAEL received report). According to nurse, patient developed right jaw pain with increased confusion, epigastric pain, and arm pain approximately 1 hour before arrival. She was evaluated by on- site medical staff and advised to present to the emergency dept for evaluation. She does have a history of falls. Related Data Home Medications Medication Instructions Recorded Confirmed aspirin 81 mg tablet,delayed 81 mg PO DAILY #100 tabs 09/17/19 07/01/23 release omeprazole 20 mg capsule,delayed 20 mg PO DAILY #90 caps 07/09/20 07/01/23 release prednisone 5 mg tablet 5 mg PO DAILY #90 tabs 11/15/20 07/01/23 sodium chloride 1 gram tablet 1,000 mg PO DAILY electrolyte 02/05/21 07/01/23 replenishment #90 tabs Acetaminophen [Tylenol] 1,000 mg PO Q8H ##0 03/03/21 07/01/23 amlodipine 5 mg tablet 5 mg PO DAILY #30 tabs 03/03/21 07/01/23 gabapentin 300 mg capsule 300 mg PO DAILY #120 caps 03/03/21 07/01/23 gabapentin 300 mg capsule 300 mg PO DAILY PRN PRN Headache 03/03/21 07/01/23 #0 caps gabapentin 300 mg capsule 600 mg (2 x 300 mg) PO HS #0 caps 03/03/21 07/01/23 mirtazapine 15 mg tablet 7.5 mg (1/2 x 15 mg) PO DAILY@1700 03/03/21 07/01/23 #30 tabs bisacodyl 10 mg rectal suppository 10 mg WV DAILY PRN 03/18/21 07/01/23 (Dulcolax (bisacodyl)) magnesium hydroxide 400 mg/5 mL 5 ml PO DAILY PRN 03/18/21 07/01/23 oral suspension cholecalciferol (vitamin D3) 25 50 mcg PO DAILY 05/18/21 07/01/23 mcg (1,000 unit) tablet (Vitamin D3) naproxen sodium 550 mg tablet 500 mg PO Q12H PRN 05/18/21 07/01/23 metoprolol succinate 50 mg 50 mg PO DAILY 07/17/21 07/01/23 tablet,extended release 24 hr levofloxacin 750 mg tablet 750 mg PO DAILY #5 tabs 07/01/23 Previous Rx's Medication Instructions Recorded aspirin 81 mg tablet,delayed 81 mg PO DAILY #100 tabs 09/17/19 release omeprazole 20 mg capsule,delayed 20 mg PO DAILY #90 caps 07/09/20 release prednisone 5 mg tablet 5 mg PO DAILY #90 tabs 11/15/20 sodium chloride 1 gram tablet 1,000 mg PO DAILY electrolyte 02/05/21 replenishment #90 tabs Acetaminophen [Tylenol] 1,000 mg PO Q8H ##0 03/03/21 amlodipine 5 mg tablet 5 mg PO DAILY #30 tabs 03/03/21 gabapentin 300 mg capsule 300 mg PO DAILY #120 caps 03/03/21 gabapentin 300 mg capsule 300 mg PO DAILY PRN PRN Headache 03/03/21 #0 caps gabapentin 300 mg capsule 600 mg (2 x 300 mg) PO HS #0 caps 03/03/21 mirtazapine 15 mg tablet 7.5 mg (1/2 x 15 mg) PO DAILY@1700 03/03/21 #30 tabs levofloxacin 750 mg tablet 750 mg PO DAILY #5 tabs 07/01/23 Allergies Allergy/AdvReac Type Severity Reaction Status Date / Time carbamazepine AdvReac Severe Confusion Verified 07/01/23 17:09 and disorientation morphine AdvReac Intermediate made my Verified 07/01/23 17:09 chest feel likie I was in a vice General HARSHAD: 3 Review of Systems Narrative: see HPI Unobtainable due to (limited HPI and ROS due to baseline dementia) Exam Const General: cooperative, in distress, anxious and frail appearing Chest Chest: abnormal inspection of the chest (sternal discomfort with palpation) Resp Effort & Inspection: normal respiratory effort and able to speak in complete sentences Auscultation: clear to auscultation bilaterally Cardio Jugular venous pressure: no JVD Rate: regular rate Rhythm: regular rhythm Pulses: radial pulses present GI Inspection: normal to inspection Palpation: soft, no guarding, not rigid and nontender Course Lab/Test Results Lab/Test Results: 07/01/23 17:08 Blood Blood Culture - Pending 07/01/23 17:08 Blood Blood Culture - Pending Medical Decision Making Colleen is an 87-year-old female with history of dementia, A-fib, HTN, osteoporosis, and PMR who presents to the emergency department today for evaluation of epigastric pain. She has dementia, unable to elicit clear history from patient, however she is currently reporting right arm pain (as well as generalized body aches), chills all over/feeling cold, and feeling like her head is not there. She denies chest pain or shortness of breath, acknowledges that she had this previously. History was able to be obtained from [facility] and rehab. She currently denies headache, nausea/vomiting, abdominal pain. Unable to recall bowel or bladder function. History also obtained from [facility] (Marqiuta MICHAEL received report). According to nurse, patient developed right jaw pain with increased confusion, epigastric pain, and arm pain approximately 1 hour before arrival. She was evaluated by on- site medical staff and advised to present to the emergency dept for evaluation. She does have a history of falls. Physical exam remarkable for patient who appears uncomfortable, shaking chills. She is alert and conversational. Easy work of breathing, lung sounds clear bilaterally. Normal heart sounds. Mild tenderness palpation of sternum. Abdomen is soft, nondistended, nontender to palpation. No tenderness to palpation of the legs or left arm. Diffuse tenderness to palpation to right arm, no point tenderness or obvious swelling/deformity noted. Peripheral pulses intact bilaterally, brisk cap refill. DDx includes but is not limited to ACS, cardiac arrhythmia, aortic dissection, aortic aneurysm, viral illness, occult infection such as pneumonia or UTI, right humerus fracture or contusion from fall, GERD I independently interpreted the following tests: EKG reassuring, NSR rate 71, no changes c/w acute ischemia. CBC reassuring. CMP and serial troponins reassuring. CT chest/abd/pelvis reassuring, segmental consolidation in the posterior inferior right lower lobe with air bronchograms, concerning for infiltrate noted. Abdomen/pelvis unremarkable for acute findings, pancreatic body lesion noted measuring 11 x 7 mm noted as incidental finding. Unclear etiology of right arm pain, x-ray was reassuring. Chest discomfort likely due to pneumonia, though GERD cannot be excluded. Cardiac workup today was reassuring. As patient did have shaking chills upon arrival to the emergency department, will treat for complicated UTI. As vital signs are reassuring and labs are unremarkable, no indication for hospitalization. Patient is appropriate for discharge back to SNF. 1735: I spoke with son/POA Eusebio re: wishes regarding diagnostics. Reviewed pt's [facility] paperwork (confirmed DNR/DNI, no abx, limited treatment). Eusebio would like to have diagnostics done to figure out what is going on with his mother so that a decision re: treatment can be made. He plans to come in the morning. Will call with updates re: diagnosis and disposition. 2015: Updated Eusebio re: diagnosis of UTI and PNA. Reviewed [facility] paperwork, including request for no abx. He would like to pursue abx at this time; will give 1 dose IV abx followed by oral levaquin for treatment of complicated UTI and PNA. Quality:SDOH Health Related Social Needs: No Data to Display PFSH All Active Problems (Updated 07/01/23 @ 19:59 by Erum Taylor) RLL pneumonia (Acute) Acute UTI (Acute) Right ankle sprain (Acute) Advance directive indicates patient wish for [id number] resuscitation status (Acute) Elevated BP without diagnosis of hypertension (Acute) Memory loss (Acute) Migraine headache without aura (Acute) Generalized weakness (Acute) Spinal stenosis (Acute) Atrial flutter (Chronic) paroxysmal, Atrial fib/flutter, rate controlled, not on anticoagulation. Zio Patch ordered. Premature beats (Chronic) 10/29/10 H/O multiples pvc's Osteoporosis (Chronic) Irritable colon (Chronic) Celiac disease (Chronic 06/12/13) Medical History Abnormal mammography (03/27/13) Adrenal insufficiency Ataxia Chronic headache Closed head injury Cortical cataract of left eye Diverticulosis of colon without diverticulitis DVT (deep venous thrombosis) s/p hemorrhoid banding Epiretinal membrane (ERM) of left eye Epiretinal membrane (ERM) of right eye Fall GERD (gastroesophageal reflux disease) History of pelvic fracture Hypertension Hypokalemia Hyponatremia Inflammation of Sacroiliac Joint Lumbosacral radiculopathy due to degenerative joint disease of spine Nuclear sclerotic cataract of left eye Osteoarthritis Pancreatic lesion Paroxysmal atrial fibrillation with rapid ventricular response Pelvic fracture PMR (polymyalgia rheumatica) Polymyalgia rheumatica (08/14/14) Post concussive syndrome Pyloric ulcer associated with Helicobacter pylori (01/21/05) Right lumbar radiculopathy (07/05/15) SIADH (syndrome of inappropriate ADH production) Urine sodium 56. Urine osmolality 460 Will need f/u lab and continued fluid restriction. Cause at this point is idiopathic. SIRS (systemic inflammatory response syndrome) Subconjunctival hemorrhage of left eye Trochanteric bursitis of both hips Surgical History Closed right hip fracture (05/03/19) S/P ORIF with cannulated screw fixation on 05/04/2019 Colonoscopy - MAC Fracture of hip, left, closed (02/26/21) s/p left hip intramedullary nail DOS: 02/27/2021 Hemorrhoidal Banding (04/27/17) Status post cataract extraction and insertion of intraocular lens of left eye (05/02/18) Status post cataract extraction and insertion of intraocular lens of right eye (05/16/18) Status post cholecystectomy Family History Mother No problems noted. Father Neoplasm PANCREATIC Sister Neoplasm BREAST/THYROID Social History Smoking/Tobacco Use Status: Never Smoking risk assessment performed?: Yes Alcohol Intake: never Drug use: Never Substance use type: does not use Counseling given: No Counseling provided: none Caregiver/Support person: Yes Household members: caregiver Housing: skilled nursing Number of Children: 3 number of grandchildren: 5 Communication Needs: None Do you need help understanding health information?: Never current occupation: [employer] Pets and animals: No Sexually active: No Do you think of yourself as: straight/heterosexual Current gender identity: female What is your relationship status?: How often do you talk on the phone with friends or family?: three or more times per week How often do you get together with friends or relatives?: three or more times per week How often do you attend pentecostal or worship services?: decline to answer Do you belong to any clubs or organized social groups?: no Panel score (0-1 are the most socially isolated patients): 1 What type of physical activity do you participate in: none Frequency: does not exercise Jennifer/Anabaptism: Sabianism Special jennifer needs: No Seatbelt use: always Helmet use: No Drive intox or ride w/intox experienced truck driver: No Do you feel safe at home: Yes Do you feel safe in your relationship?: Yes
[2023-07-01 17:34] LABS: Abs Immature Grans 0.04 10^3/uL (0.0-0.06); Absolute Basophil Count 0.04 10^3/uL (0.0-0.2); Absolute Eosinophil Count 0.06 10^3/uL (0.0-0.7); Absolute Lymphocyte Count 1.41 10^3/uL (1.2-3.4); Absolute Monocyte Count 0.77 10^3/uL (0.1-0.8); Absolute Neutrophil Count 8.23 10^3/uL (1.2-6.7); Basophils % 0.4 %; Eosinophils % 0.6 %; HCT 38.1 % (36.0-46.0); HGB 12.2 g/dL (11.2-15.7); Immature Grans % 0.4 %; Lymphocytes % 13.4 %; MCH 28.4 pg (27.0-33.0); MCV 89 fL (80-95); MPV 10.5 fL (8.0-11.0); Monocytes % 7.3 %; Neutrophils % 77.9 %; Platelet Count 255 10^3/uL (130-400); RDW 13.6 % (11.7-14.6); WBC 10.55 10^3/uL (4.4-10.8)
[2023-07-01 17:52] LABS: ALT 13 U/L (14-59); AST 19 U/L (15-37); Albumin 3.2 g/dL (3.4-5.0); Alkaline Phosphatase 106 U/L (46-116); Anion Gap 8.9 mmol/L (3-11); BUN 15 mg/dL (7-18); Bilirubin, Total 0.4 mg/dL (0.2-1.0); CO2 28.1 mmol/L (21.0-32.0); Calcium 9.1 mg/dL (8.5-10.1); Chloride 101 mmol/L (98-107); Estimated GFR 54.53 (mL/min/1.73m2); Glucose 123 mg/dL (74-106); Potassium 4.4 mmol/L (3.5-5.1); Sodium 138 mmol/L (136-145); Total Protein 7.4 g/dL (6.4-8.2); Troponin I < 50 ng/L (< or =60)
[2023-07-01 17:56] VITALS: BP 137/60; PULSE 79; RESP 18; TEMP 36.6; O2SAT 95
[2023-07-01 17:57] LABS: Bilirubin Negative (Negative); Blood Small (Negative); Clarity Turbid (Clear); Glucose Negative (Negative); Ketones Negative (Negative); Leukocyte Esterase Small (Negative); Nitrite Positive (Negative); Specific Gravity 1.015 (1.005-1.025); Urobilinogen 0.2 mg/dL (Up to 0.2)
[2023-07-01 18:03] LABS: Bacteria Many HPF (Negative); C & S Indicated? Yes; Casts Negative LPF (Negative); Crystals Negative HPF (Negative); Epithelial Cells Negative HPF (Negative); Mucus Negative (Negative); WBC >50 HPF (0-5)
[2023-07-01 18:14] LABS: COVID-19 PCR Negative (Negative); Influenza A PCR Negative (Negative); Influenza B PCR Negative (Negative); RSV PCR Negative (Negative)
[2023-07-01 18:17] LABS: Source Nasopharynx
[2023-07-01] MEDS: Normal Saline - Diluent 50 ML VIAL IJ (18:25)
[2023-07-01] MEDS: Omnipaque 350 MG/ML 100 ML BTL IJ (18:25)
[2023-07-01 19:02] VITALS: BP 152/59; PULSE 66; RESP 18; TEMP 36.2; O2SAT 93
--- NOTE | 2023-07-01 19:41 | DI.VRAD_ITS ---
PROCEDURE INFORMATION: Exam: CT Chest With Contrast; Diagnostic Exam date and time: 07/01/2023 6:23 PM Age: 87 years old Clinical indication: Abdominal pain; Other: Epigastric pain; Additional info: Epigastric pain, ? SOB, rigors TECHNIQUE: Imaging protocol: Diagnostic computed tomography of the chest with contrast. 3D rendering (Not supervised by radiologist): MIP and/or 3D reconstructed images were created by the technologist. Contrast material: OMNI 350; Contrast volume: 100 ml; Contrast route: INTRAVENOUS (IV); COMPARISON: CR XR CHEST 1V IN DI DEPT 05/18/2021 7:36 PM FINDINGS: Lungs: Left lung with mild posterior basilar atelectasis. Right lung with segmental consolidation in the posterior lower lobe with air bronchograms. This is concerning for a right lower lobe infiltrate. Pleural spaces: No pleural effusion. Heart: Mild cardiac enlargement. Mitral valve calcium. Minor coronary artery atherosclerotic calcium. No pericardial effusion. Lymph nodes: Unremarkable. No enlarged lymph nodes. Vasculature: Thoracic aorta atherosclerotic calcium. No aneurysm or dissection. Pulmonary arteries unremarkable as visualized. Bones/joints: No acute skeletal change. Multilevel degenerative thoracic spine. No acute findings. Soft tissues: Chest wall soft tissues are unremarkable. IMPRESSION: Segmental consolidation in the posteroinferior right lower lobe with air bronchograms which may represent an infiltrate. PROCEDURE INFORMATION: Exam: CT Abdomen And Pelvis With Contrast Exam date and time: 07/01/2023 6:23 PM Age: 87 years old Clinical indication: Abdominal pain; Other: Epigastric pain; Additional info: Epigastric pain, ? SOB, rigors TECHNIQUE: Imaging protocol: Computed tomography of the abdomen and pelvis with contrast. 3D rendering (Not supervised by radiologist): MIP and/or 3D reconstructed images were created by the technologist. Contrast material: OMNI 350; Contrast volume: 100 ml; Contrast route: INTRAVENOUS (IV); COMPARISON: CT ABDOMEN PELVIS WO 09/14/2019 12:03 PM FINDINGS: Liver: Diffuse moderate fatty liver infiltration. Gallbladder and bile ducts: Patient has had a previous cholecystectomy. There is no biliary dilatation. There are no ductal stones visible.. Pancreas: Moderate pancreatic atrophy. There is a pancreatic body low-attenuation lesion measuring 11 x 7 mm on series 4: Image 53. Significance uncertain. This is not definitively a cyst by current appearance. This is not evident on a noncontrast study from 2020. Additional pancreatic imaging is recommended. A pancreatic MRI follow-up would be the best imaging modality for complete evaluation. There is no pancreatic ductal dilatation. No peripancreatic inflammation. Spleen: The spleen is normal in size, contour and attenuation. Adrenal glands: The adrenal glands are normal in size and contour bilaterally. Kidneys and ureters: The kidneys bilaterally are unremarkable. Normal attenutation. No hydronephrosis. No calculi. Stomach and bowel: Gastric morphology is unremarkable. No edema. No gastric outlet obstruction.Small bowel loops are normal in course and caliber. There is no mucosal edema or bowel wall thickening. No obstructive features.The colon contains formed fecal material. There is no bowel wall thickening. No inflammatory features. No obstruction. Colonic diverticulosis without acute diverticulitis. Appendix: No evidence of appendicitis. Intraperitoneal space: No free fluid. No free air. Vasculature: Atherosclerotic aortoiliac calcium without aneurysm or occlusive features. Lymph nodes: Unremarkable. No enlarged lymph nodes. Urinary bladder: Urinary bladder is unremarkable in appearance. No wall thickening. No intravesicular calculi. No intravesicular gas. Reproductive: The uterus and adnexa are unremarkable in appearance. There are no dominant adnexal cysts or masslike features. There are no inflammatory features. No uterine mass evident. Bones/joints: Degenerative lumbar spine. Bilateral L5 pars interarticularis defects and a grade 2 L5 anterolisthesis on S1. Old right pubic rami fractures which have healed. Previous bilateral hip fracture repairs. Soft tissues: Abdominal wall soft tissues are unremarkable. No acute features. IMPRESSION: 1. No acute findings of the abdomen or pelvis. 2. Pancreatic body nonspecific low-attenuation lesion measuring 11 x 7 mm. Series 4: Image 53. Indeterminate whether this is a cystic or solid lesion. Recommend follow-up imaging such as pancreatic MRI. This is not identified on a noncontrast study from 2020. 3. Fatty liver. 4. Previous cholecystectomy. 5. Degenerative lumbar spine skeletal changes. Previous right pubic rami fractures. Previous hip fracture repairs. Dictated and Authenticated by: Jose Sauer MD. Ordering:EVERARDO Danielson MD
--- NOTE | 2023-07-01 19:43 | DI.VRAD_ITS ---
PROCEDURE INFORMATION: Exam: XR Right Shoulder Exam date and time: 07/01/2023 6:41 PM Age: 87 years old Clinical indication: Pain; Shoulder; Right TECHNIQUE: Imaging protocol: Radiologic exam of the right shoulder. Views: 2 or more views. COMPARISON: CT CHEST/ABD/PEL W 07/01/2023 6:23 PM FINDINGS: Bones/joints: Degenerative disease of the right shoulder. Severe glenohumeral joint degenerative narrowing. Superior migration of the humeral head with narrowing of the subacromial space consistent with chronic rotator cuff pathology. No acute fracture. Soft tissues: Soft tissue calcifications in the subacromial space likely representing sequela of chronic calcific tendinitis. No acute soft tissue pathology. IMPRESSION: 1. Chronic degenerative glenohumeral joint arthritis. 2. Chronic rotator cuff pathology. 3. No acute fracture or acute dislocation. Dictated and Authenticated by: Jose Sauer MD. Ordering:EVERARDO Danielson MD
--- NOTE | 2023-07-01 19:44 | DI.VRAD_ITS ---
PROCEDURE INFORMATION: Exam: XR Right Humerus Exam date and time: 07/01/2023 6:44 PM Age: 87 years old Clinical indication: Pain; Upper arm; Right TECHNIQUE: Imaging protocol: Radiologic exam of the right humerus. Views: 2 or more views. COMPARISON: CR XR SHOULDER RT COMPLETE 2+V 07/01/2023 6:41 PM FINDINGS: Bones/joints: Glenohumeral joint degenerative arthritis. No acute humeral pathology. No fracture. No focal bone lesions. Elbow joint is unremarkable. Soft tissues: Soft tissues of the right upper arm are unremarkable. IMPRESSION: 1. No acute findings. 2. Glenohumeral joint degenerative arthritis. Dictated and Authenticated by: Jose Sauer MD. Ordering:EVERARDO Danielson MD
[2023-07-01] MEDS: levoFLOXacin 500 MG, levoFLOXacin 250 MG 750 MG PO (20:15)
[2023-07-01 20:33] LABS: Troponin I < 50 ng/L (< or =60)
[2023-07-01] MEDS: ERTAPENEM 1 GM in Normal Saline 50 ML IVPB (20:44)
[2023-07-01 21:30] VITALS: BP 145/72; PULSE 88; RESP 16; TEMP 36.9; O2SAT 98
--- NOTE | 2023-07-01 21:37 | NUR.NOTE ---
this nurse attempted to call report to [facility] and rehab, call x2, there was no option to leave voice message after no answer. Nursing Note:
== END 2023-07-01 21:27 | disposition skilled nursing facility (03) ==
PROVIDERS: Emergency Provider Nurse Practitioner Family; PCP Family Medicine
DX: J18.9 Pneumonia, unspecified organism (principal); N39.0 Urinary tract infection, site not specified; R10.30 Lower abdominal pain, unspecified; I10 Essential (primary) hypertension; M79.601 Pain in right arm; R68.84 Jaw pain; Z86.79 Personal history of other diseases of the circulatory system
CPT/HCPCS: 74177; 80053; 87040; 87077; 87637; 93005; 96365; 99285; 71260; 73030; 73060; 81003; 81015; 84484; 85025; 87086; 87186; 93010; 99283; J1335; J3490

== ENCOUNTER 2023-10-27 19:10 | Outpatient (REF) | payer MEDICARE, MEDICAID, SELFPAY ==
[2023-10-27 17:58] LABS: Bilirubin Negative (Negative); Blood Negative (Negative); Clarity Clear (Clear); Glucose Negative (Negative); Ketones Negative (Negative); Leukocyte Esterase Small (Negative); Nitrite Negative (Negative); Urobilinogen 0.2 mg/dL (Up to 0.2); pH 5.5 (5-8)
[2023-10-27 18:19] LABS: Bacteria Rare HPF (Negative); C & S Indicated? No; Casts Negative LPF (Negative); Crystals Negative HPF (Negative); Epithelial Cells Rare HPF (Negative); Mucus Negative (Negative); RBC Negative HPF (0-2)
== END 2023-10-27 19:11 | disposition home or self-care (01) ==
LOC: LBN 19:10
PROVIDERS: PCP Family Medicine; Visit Provider Family Medicine
DX: E87.5 Hyperkalemia (principal); E83.51 Hypocalcemia
CPT/HCPCS: 81003; 81015

== ENCOUNTER 2023-11-02 20:11 | Outpatient (REF) | payer MEDICARE, MEDICAID, SELFPAY ==
[2023-11-02 21:24] LABS: HCT 40.7 % (36.0-46.0); HGB 12.6 g/dL (11.2-15.7); MCH 28.1 pg (27.0-33.0); MCV 91 fL (80-95); MPV 11.5 fL (8.0-11.0); Platelet Count 265 10^3/uL (130-400); RBC 4.48 10^6/uL (3.93-5.22); RDW 15.1 % (11.7-14.6); RDW-SD 50.5 fL; WBC 12.63 10^3/uL (4.4-10.8)
[2023-11-02 21:45] LABS: Anion Gap 12.4 mmol/L (3-11); BUN 22 mg/dL (7-18); CO2 25.6 mmol/L (21.0-32.0); CREATININE 1.3 mg/dL (0.55-1.02); Calcium 9.9 mg/dL (8.5-10.1); Chloride 99 mmol/L (98-107); Glucose 132 mg/dL (74-106); Potassium 4.4 mmol/L (3.5-5.1); Sodium 137 mmol/L (136-145); TSH 2.75 uIU/Ml (0.36-3.74)
== END 2023-11-02 20:12 | disposition home or self-care (01) ==
LOC: LBN 20:11
PROVIDERS: PCP Family Medicine; Visit Provider Family Medicine
DX: R68.89 Other general symptoms and signs (principal)
CPT/HCPCS: 80048; 85027; 84443

== ENCOUNTER 2024-01-19 17:01 | Outpatient (REF) | payer MEDICARE, MEDICAID, SELFPAY ==
[2024-01-19 17:08] LABS: Hemoglobin A1C 5.7 % (<5.7)
[2024-01-19 17:17] LABS: Anion Gap 11.1 mmol/L (3-11); BUN 19 mg/dL (7-18); CO2 24.9 mmol/L (21.0-32.0); CREATININE 1.1 mg/dL (0.55-1.02); Calcium 8.8 mg/dL (8.5-10.1); Chloride 103 mmol/L (98-107); Estimated GFR 48.33 (mL/min/1.73m2); Glucose 117 mg/dL (74-106); Sodium 139 mmol/L (136-145)
== END 2024-01-19 17:02 | disposition home or self-care (01) ==
LOC: LBN 17:01
PROVIDERS: PCP Family Medicine; Visit Provider Family Medicine
DX: E11.9 Type 2 diabetes mellitus without complications (principal)
CPT/HCPCS: 80048; 83036

== ENCOUNTER 2024-02-07 07:11 | Emergency (ER) | payer MEDICARE, OTHER, MEDICAID, SELFPAY ==
[2024-02-07 07:11] VITALS: BP 165/70; PULSE 83; RESP 18; TEMP 36.6; O2SAT 97
--- NOTE | 2024-02-07 07:15 | DI.RAD_ITS ---
Exam(s) XR PELVIS AP XR FEMUR LT XR FEMUR RT EXAM: XR PELVIS AP and bilateral XR femur CLINICAL HISTORY: fall, unwitnessed, bilateral hip pain. TECHNIQUE: 2D digital imaging was performed.Ten images were obtained. COMPARISON: CR,XR XR PELVIS AP from 05/18/2021 FINDINGS: BONES: No acute fracture is present. No bony destructive lesion is seen. There is again seen an intra medullary lupe in the left femur. Three orthopedic screws are again seen in the right femoral neck. Old healed right superior and inferior pubic rami fractures are seen. JOINTS: No dislocation present. Degenerative changes are seen in the knees, left greater than right. SOFT TISSUE: There is contrast in the urinary bladder consistent with the patient's recent CT scan. Extensive atherosclerotic calcification is present. IMPRESSION: No acute fracture or dislocation. DATA REPOSITORY: RADIATION DOSE DELIVERED:
--- NOTE | 2024-02-07 07:15 | DI.CT_ITS ---
Exam(s) CT CHEST/ABD/PEL W EXAM: CT CHEST/ABD/PEL W CLINICAL HISTORY: fall, unwitnessed, rib and hip pain TECHNIQUE: Imaging Protocol: Axial computed tomography images with coronal and sagittal reformatted images were created and reviewed. Lung Computer Aided Detection (CAD) was utilized. CONTRAST MATERIAL: Intravenous: Omnipaque 350 contrast volume:75 mL Oral: No COMPARISON: CT CT ABDOMEN PELVIS W from 05/20/[address] CHEST/ABD/PEL W from 07/01/2023 FINDINGS: CHEST: Tracheobronchial tree: Patent where visualized. No evidence of bronchiectasis. Pulmonary parenchyma: No consolidation or dominant measurable mass. Atelectatic changes are seen in t he lung bases. There is scarring seen in the right lower lobe which is unchanged. There is unchange d elevation of the right hemidiaphragm. Visualized thyroid gland: Unremarkable. Mediastinum and Jennifer: No dominant adenopathy or fluid collection. The esophagus is unremarkable. The re is a small hiatal hernia. Pleura: No effusion or pneumothorax. Heart: The heart is not dilated. Coronary artery calcification is present. No pericardial effusion. Pulmonary arteries: Due to the timing of the bolus, the pulmonary arteries are inadequately opacified for evaluation of peripheral pulmonary emboli. No large central pulmonary embolism is present. Aorta: Thoracic aorta non-dilated. No evidence of dissection. Atherosclerotic calcification is prese nt. Lymph nodes: Within normal limits. Soft tissues: Unremarkable. Bones:There are marked degenerative changes seen at the right glenohumeral joint. No obvious displac ed rib fractures are seen. No acute fracture or subluxation is identified. There is an intramedulla ry lupe seen in the proximal left femur. Three orthopedic screws are seen in the right femoral neck. Note is made of L5 spondylolysis and grade 1 spondylolisthesis of L5 on S1. Age-appropriate degener ative changes are seen throughout the thoracic and lumbar spine. Old healed right pelvic bone fractu res. ABDOMEN: Liver: Normal density. No measurable mass. Portal, Superior Mesenteric, and Splenic Veins: Unremarkable. Gallbladder and Biliary Tract: Status post cholecystectomy. No significant biliary ductal dilatation . Pancreas: Normal density, no abnormal calcifications or inflammatory process. Stable 1.1 cm hypodensi ty in the body of the pancreas (series 4, image 81). This likely reflects a small cyst. Spleen: Normal. Adrenals: No masses seen. Kidneys: Normal size, contour and axis. No radiodense stones or obstructive uropathy. No masses seen. Abdominal Aorta: Abdominal portion non-dilated. Atherosclerotic calcification is present. No evidenc e of dissection. Bowel: There is diverticulosis seen in the colon without evidence of acute diverticulitis. No eviden ce of bowel wall thickening or obstruction. No evidence of appendicitis. Peritoneal Cavity: No ascites, collection or mesenteric inflammatory response. No free air. Lymph Nodes: Within normal limits. Soft Tissues: Unremarkable. PELVIS: Bladder: Symmetric distention, no gross wall thickening. Portions of the urinary bladder are not well seen due to artifact from the patient's hip surgeries. Reproductive Organs: Grossly unremarkable. Lymph Nodes: Within normal limits. IMPRESSION: 1. No acute abdominal or pelvic process. 2. Stable incidental findings in the abdomen and pelvis as described above. 3. No acute pulmonary process. RADIATION DOSE DELIVERED: 558.15mGy.cm Total DLP DATA REPOSITORY: All CT scans at this facility are submitted to the National Radiology Data Registry (NRDR) Dose Index Registry (DIR) with the [employer] ([employer]). RADIATION OPTIMIZATION: All CT scans at this facility use at least one of these dose optimization te chniques: automated exposure control; mA and/or kV adjustment per patient size (includes targeted exa ms where dose is matched to clinical indication); or iterative reconstruction.
--- NOTE | 2024-02-07 07:15 | DI.RAD_ITS ---
Exam(s) XR ANKLE LT COMPLETE EXAM: XR ANKLE LT COMPLETE CLINICAL HISTORY: fall, ankle pain TECHNIQUE: 2D digital imaging was performed of the left ankle. Three images were obtained. AP, lat eral and oblique views were obtained. COMPARISON: No exams were available for comparison FINDINGS: BONES: No acute fracture is present. No bony destructive lesion is seen. JOINTS:The ankle mortise is normally aligned. SOFT TISSUE: Vascular calcifications are present. IMPRESSION: No acute fracture or dislocation. DATA REPOSITORY: RADIATION DOSE DELIVERED:
--- NOTE | 2024-02-07 07:15 | DI.CT_ITS ---
Exam(s) CT HEAD CERVICAL SPINE WO EXAM: CT HEAD CERVICAL SPINE WO CLINICAL HISTORY: fall, unwitnessed. TECHNIQUE: Imaging Protocol: Axial computed tomography images with coronal and sagittal reformatted images were created and reviewed COMPARISON: CT CT HEAD CERVICAL SPINE WO from 05/18/2021 FINDINGS: The examination is limited due to patient motion artifact. CT Head: Ventricles and Extra axial spaces: Normal in size and morphology for the patient's age. Hemorrhage: None. Cerebral parenchyma: There are areas of decreased attenuation in the white matter most consistent wit h chronic microvascular ischemic disease. No mass effect is identified. Midline shift: None. Brainstem/Cerebellum: Normal. Calvarium: Normal. Visualized Paranasal sinuses/Mastoids: Clear. Soft Tissues: Unremarkable. CT Cervical Spine: Bones: No acute fractures identified. There has been interval development of 2-3 mm anterolisthesis of C3 on C4. There is progression of the disc space narrowing and subchondral cysts at this level co mpared to the prior examination. [id number] degenerative changes are present in the cervical s pine. Facet arthropathy has progressed since the prior examination at C3-C4. Soft Tissues: Atherosclerotic calcification is present. Lung Apices: Clear. IMPRESSION: 1. No acute intracranial process. 2. No acute fracture in the cervical spine. 3. Prominent progression of degenerative changes seen at C3-C4 with disc space narrowing and facet ar thropathy. 2-3 mm anterolisthesis of C3 on C4 is also present which likely reflects a degenerative c hanges. Follow-up as clinically appropriate. This may include an outpatient MRI. RADIATION DOSE DELIVERED: 1,227.03mGy.cm Total DLP DATA REPOSITORY: All CT scans at this facility are submitted to the National Radiology Data Registry (NRDR) Dose Index Registry (DIR) with the [employer] ([employer]). RADIATION OPTIMIZATION: All CT scans at this facility use at least one of these dose optimization te chniques: automated exposure control; mA and/or kV adjustment per patient size (includes targeted exa ms where dose is matched to clinical indication); or iterative reconstruction.
--- NOTE | 2024-02-07 07:15 | DI.RAD_ITS ---
Exam(s) XR ANKLE RT COMPLETE EXAM: XR ANKLE RT COMPLETE CLINICAL HISTORY: fall, unwitnessed. TECHNIQUE: 2D digital imaging was performed of the right ankle. Three images were obtained. AP, la teral and oblique views were obtained. COMPARISON: CR XR ANKLE RT COMPLETE from 02/04/2021 FINDINGS: BONES: No acute fracture is present. No bony destructive lesion is seen. The bones are osteopenic. JOINTS: The ankle mortise is normally aligned. Degenerative changes are seen in the hindfoot. SOFT TISSUE: Atherosclerotic vascular calcifications are present. IMPRESSION: No acute fracture or dislocation. DATA REPOSITORY: RADIATION DOSE DELIVERED:
--- NOTE | 2024-02-07 07:32 | ED.GENADUL_ITS ---
Discharge Plan Disposition Patient Disposition: Home Condition: Good Discharge Details Chief Complaint: GenMedical Clinical Impression: Fall, Contusion, Skin rash Primary Care Provider: Ortiz Vasquez ED Provider: Temo Douglas Home Meds and New Rx's Prescriptions: No Action omeprazole 20 mg capsule,delayed release(DR/EC) 20 mg PO DAILY Qty: 90 3RF bisacodyl [Dulcolax (bisacodyl)] 10 mg suppository 10 mg SC DAILY PRN magnesium hydroxide 400 mg/5 mL suspension 5 ml PO DAILY PRN metoprolol succinate 50 mg tablet extended release 24 hr 50 mg PO DAILY prednisone 5 mg tablet 5 mg PO DAILY Qty: 90 3RF sodium chloride 1 gram tablet 1,000 mg PO DAILY Qty: 90 3RF levofloxacin 750 mg tablet 750 mg PO DAILY Qty: 5 0RF mirtazapine 15 mg Tablet 15 mg PO DAILY@1700 aspirin 81 mg Tablet,Delayed Release (Dr/Ec) 81 mg PO DAILY Qty: 100 0RF Acetaminophen [Tylenol] 1,000 mg PO Q8H Qty: 0 0RF amlodipine 5 mg Tablet 5 mg PO DAILY Qty: 30 0RF gabapentin 300 mg Capsule 600 mg PO HS Qty: 0 0RF gabapentin 300 mg Capsule 300 mg PO DAILY PRN PRN (Reason: Headache) Qty: 0 0RF gabapentin 300 mg capsule 300 mg PO DAILY Qty: 120 11RF Rx Instructions: 300mg am and 600mg HS; ok to take 300mg once daily prn headache naproxen sodium 550 mg Tablet 500 mg PO Q12H PRN cholecalciferol (vitamin D3) [Vitamin D3] 25 mcg (1,000 unit) Tablet 50 mcg PO DAILY Discharge Instructions Additional Instructions: At this time the ankle go x-rays, the hip x-rays, and the CAT scan of your head, neck, chest, abdomen and pelvis do not show any evidence of new significant abnormalities. You have no acute neurologic deficits to suggest stroke. No other abnormalities on exam acutely. You do have evidence of likely a fungal skin infection in your panel fold on the left. Please apply an [id number] zinc-based ointment or an yzns-lni-wdlokjt antifungal ointment to that area twice daily until it resolves. If you notice any worsening of your symptoms, or any new symptoms such as vomiting, diarrhea, fever, chills, shortness of breath, chest pain, numbness, weakness, or fainting , please return immediately to the emergency department for reevaluation. Please follow up with your primary care provider as soon as possible for reassessment and reevaluation. As always, it was a pleasure participating in your medical care today. Referrals: Ortiz Vasquez [Primary Care Provider] - [facility] General Date/Time Provider Initiated Documentation: 02/07/24 07:23 . HPI Narrative: This is an 88-year-old female who resides at [facility] with a past medical history of dementia, DNR/DNI, A-fib/a flutter not on any anticoagulation but who does take a daily 81 mg aspirin, polymyalgia rheumatica, SIADH, previous right hip surgery, cholecystectomy, who presents today for evaluation of a fall. History is extremely limited from the patient. Health and rehab states that she had an unwitnessed fall. Uncertain when. EMS does not have any other available history. Patient complains of pain everywhere, with no focality. Patient gives no other historical components. No other additional factors per patient. Unknown as to whether or not she hit her head. Related Data Home Medications ?Medication ?Instructions ?Recorded ?Confirmed aspirin 81 mg tablet,delayed 81 mg PO DAILY #100 tabs 09/17/19 02/07/24 release omeprazole 20 mg capsule,delayed 20 mg PO DAILY #90 caps 07/09/20 02/07/24 release prednisone 5 mg tablet 5 mg PO DAILY #90 tabs 11/15/20 02/07/24 sodium chloride 1 gram tablet 1,000 mg PO DAILY electrolyte 02/05/21 02/07/24 replenishment #90 tabs Acetaminophen [Tylenol] 1,000 mg PO Q8H ##0 03/03/21 02/07/24 amlodipine 5 mg tablet 5 mg PO DAILY #30 tabs 03/03/21 02/07/24 gabapentin 300 mg capsule 300 mg PO DAILY #120 caps 03/03/21 02/07/24 gabapentin 300 mg capsule 300 mg PO DAILY PRN PRN Headache 03/03/21 07/01/23 #0 caps gabapentin 300 mg capsule 600 mg (2 x 300 mg) PO HS #0 caps 03/03/21 07/01/23 bisacodyl 10 mg rectal suppository 10 mg SC DAILY PRN 03/18/21 02/07/24 (Dulcolax (bisacodyl)) magnesium hydroxide 400 mg/5 mL 5 ml PO DAILY PRN 03/18/21 02/07/24 oral suspension cholecalciferol (vitamin D3) 25 50 mcg PO DAILY 05/18/21 02/07/24 mcg (1,000 unit) tablet (Vitamin D3) naproxen sodium 550 mg tablet 500 mg PO Q12H PRN 05/18/21 02/07/24 metoprolol succinate 50 mg 50 mg PO DAILY 07/17/21 02/07/24 tablet,extended release 24 hr levofloxacin 750 mg tablet 750 mg PO DAILY #5 tabs 07/01/23 mirtazapine 15 mg tablet 15 mg PO DAILY@1700 02/07/24 02/07/24 Previous Rx's ?Medication ?Instructions ?Recorded aspirin 81 mg tablet,delayed 81 mg PO DAILY #100 tabs 09/17/19 release omeprazole 20 mg capsule,delayed 20 mg PO DAILY #90 caps 07/09/20 release prednisone 5 mg tablet 5 mg PO DAILY #90 tabs 11/15/20 sodium chloride 1 gram tablet 1,000 mg PO DAILY electrolyte 02/05/21 replenishment #90 tabs Acetaminophen [Tylenol] 1,000 mg PO Q8H ##0 03/03/21 amlodipine 5 mg tablet 5 mg PO DAILY #30 tabs 03/03/21 gabapentin 300 mg capsule 300 mg PO DAILY #120 caps 03/03/21 gabapentin 300 mg capsule 300 mg PO DAILY PRN PRN Headache 03/03/21 #0 caps gabapentin 300 mg capsule 600 mg (2 x 300 mg) PO HS #0 caps 03/03/21 levofloxacin 750 mg tablet 750 mg PO DAILY #5 tabs 07/01/23 Allergies Allergy/AdvReac Type Severity Reaction Status Date / Time carbamazepine AdvReac Severe Confusion Verified 02/07/24 07:23 and disorientation morphine AdvReac Intermediate made my Verified 02/07/24 07:23 chest feel likie I was in a vice General Stated Complaint: GenMedical HARSHAD: 3 Exam Narrative Exam Narrative: 1.Const: Well-nourished, Well-developed, appearing stated age 2.Eyes: PERRL, no conjunctival injection, and symmetrical lids. 3.ENT: Atraumatic external nose and ears. Moist MM. Neck: Symmetric, trachea midline, No thyromegaly. There is no evidence of raccoon eyes, velázquez sign, CSF rhinorrhea, mastoid tenderness, cranial crepitus, exophthalmos, or hyphema. Patient demonstrates intact dentition with no signs of tooth avulsion or fracture, no signs of jaw deformity, no evidence of a LeFort's fracture, with an intact palate, nose and orbital region. There is no evidence of a nasal septal hematoma. No proptosis. Jaw closes symmetrically. Airway is clear. 4.CVS: +S1/S2, Peripheral pulses 2+ and equal in all extremities. Brisk capillary refill in all extremities. 5.RESP: Unlabored respiratory effort. Clear to auscultation bilaterally. No wheezes rales or rhonchi 6.GI: Soft, Nontender/Nondistended, No hepatosplenomegaly. No guarding or rebound. 7.MSK: Mild pain on palpation of the ribs throughout, no focality. No bruising. No midline cervical spine tenderness. Hips are tender bilaterally to palpation. Right lower extremity is externally rotated but not significantly shortened. Left lower extremity demonstrates tenderness in the ankle as well as left hip. No other deformity 8.Skin: Notable yeastlike rash in the left groin. Mild skin breakdown in that area. 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 Sensation grossly intact, no focal neurologic deficits. 10.Psych: (AAO) x0. Pleasant Course Vital Signs Vital signs: Vital Signs Temperature 36.6 C 02/07/24 07:11 Pulse 83 02/07/24 07:11 Respiratory Rate 18 02/07/24 07:11 Blood Pressure 165/70 H 02/07/24 07:11 Pulse Oximetry 97 02/07/24 07:11 Temperature 36.6 C 02/07/24 07:11 Temperature Source Temporal Artery Scan 02/07/24 07:11 Pulse 83 02/07/24 07:11 Respiratory Rate 18 02/07/24 07:11 Blood Pressure 165/70 H 02/07/24 07:11 Blood Pressure Position Supine 02/07/24 07:11 Pulse Oximetry 97 02/07/24 07:11 Oxygen Delivery Method Room Air 02/07/24 07:11 Oxygen Flow Rate 0 02/07/24 07:11 Medical Decision Making This is an 88-year-old female who resides at [facility] with a past medical history of dementia, DNR/DNI, A-fib/a flutter not on any anticoagulation but who does take a daily 81 mg aspirin, polymyalgia rheumatica, SIADH, previous right hip surgery, cholecystectomy, who presents today for evaluation of a fall. History is extremely limited from the patient. Health and rehab states that she had an unwitnessed fall. Uncertain when. EMS does not have any other available history. Patient complains of pain everywhere, with no focality. Patient gives no other historical components. No other additional factors per patient. Unknown as to whether or not she hit her head. Exam demonstrates notably demented female, who is not able to add anything historically. She does complain of pain everywhere. Exam demonstrates tend erness in all of her ribs but no evidence of bruising or unilateral dysfunction. She has pain in her hips bilaterally, pain in her left ankle, external rotation of her right lower extremity. Due to the limited history I do feel that further diagnostic imaging is indicated. For the head with her potential fall for potential bleed versus stroke we will get CT scan of the head neck. For the chest concern is for rib fractures less likely pneumothorax or pulmonary trauma we will get CT imaging. There is concern for potential femur and ankle and hip fractures. As well as changes in whore her previous orthotic devices. We will get x-ray imaging of the lower extremities. Will treat the patient's pain, get a CPK to rule out rhabdo, monitor closely and reassess 10:24 AM Laboratory workup has returned, no white count bandemia or left shift. VBG normal, platelets normal. Hemoglobin normal. CT imaging of the head neck chest abdomen pelvis demonstrates no acute process. X-ray of the hips and ankles show no evidence of fracture. Degeneration is noted in the cervical spine, but no acute component of fracture or dislocation. Patient remains hemodynamically stable. With no evidence of acute life-threatening etiology, both radiographically or on laboratory workup, I do feel the patient is safe for discharge at this time. That being said she does have a notable yeast infection in her panel fold. Will recommend continued monitoring and maintenance of this by the nursing staff. I have extensively reviewed the treatment plan and discharge instructions with the patient. I have addressed all patient concerns at this time. The patient was made aware of what symptoms to monitor for that would warrant a return to the emergency department. Discussed the plan with the patient, they demonstrate verbal understanding and agreement with our assessment and plan at this time. The documentation in this chart was dictated using My Single Point dictation software. Please excuse any dictation errors. FINDINGS: BONES: No acute fracture is present. No bony destructive lesion is seen. The bones are osteopenic. JOINTS: The ankle mortise is normally aligned. Degenerative changes are seen in the hindfoot. SOFT TISSUE: Atherosclerotic vascular calcifications are present. IMPRESSION: No acute fracture or dislocation. FINDINGS: BONES: No acute fracture is present. No bony destructive lesion is seen. JOINTS:The ankle mortise is normally aligned. SOFT TISSUE: Vascular calcifications are present. IMPRESSION: No acute fracture or dislocation. FINDINGS: BONES: No acute fracture is present. No bony destructive lesion is seen. There is again seen an intramedullary lupe in the left femur. Three orthopedic screws are again seen in the right femoral neck. Old healed right superior and inferior pubic rami fractures are seen. JOINTS: No dislocation present. Degenerative changes are seen in the knees, left greater than right. SOFT TISSUE: There is contrast in the urinary bladder consistent with the patient's recent CT scan. Extensive atherosclerotic calcification is present. IMPRESSION: No acute fracture or dislocation. FINDINGS: BONES: No acute fracture is present. No bony destructive lesion is seen. There is again seen an intramedullary lupe in the left femur. Three orthopedic screws are again seen in the right femoral neck. Old healed right superior and inferior pubic rami fractures are seen. JOINTS: No dislocation present. Degenerative changes are seen in the knees, left greater than right. SOFT TISSUE: There is contrast in the urinary bladder consistent with the patient's recent CT scan. Extensive atherosclerotic calcification is present. IMPRESSION: No acute fracture or dislocation. FINDINGS: BONES: No acute fracture is present. No bony destructive lesion is seen. There is again seen an intramedullary lupe in the left femur. Three orthopedic screws are again seen in the right femoral neck. Old healed right superior and inferior pubic rami fractures are seen. JOINTS: No dislocation present. Degenerative changes are seen in the knees, left greater than right. SOFT TISSUE: There is contrast in the urinary bladder consistent with the patient's recent CT scan. Extensive atherosclerotic calcification is present. IMPRESSION: No acute fracture or dislocation. FINDINGS: The examination is limited due to patient motion artifact. CT Head: Ventricles and Extra axial spaces: Normal in size and morphology for the patient's age. Hemorrhage: None. Cerebral parenchyma: There are areas of decreased attenuation in the white matter most consistent with chronic microvascular ischemic disease. No mass effect is identified. Midline shift: None. Brainstem/Cerebellum: Normal. Calvarium: Normal. Visualized Paranasal sinuses/Mastoids: Clear. Soft Tissues: Unremarkable. CT Cervical Spine: Bones: No acute fractures identified. There has been interval development of 2- 3 mm anterolisthesis of C3 on C4. There is progression of the disc space narrowing and subchondral cysts at this level compared to the prior examination. Hebe-mq-[id number] degenerative changes are present in the cervical spine. Facet arthropathy has progressed since the prior examination at C3-C4. Soft Tissues: Atherosclerotic calcification is present. Lung Apices: Clear. IMPRESSION: 1. No acute intracranial process. 2. No acute fracture in the cervical spine. 3. Prominent progression of degenerative changes seen at C3-C4 with disc space narrowing and facet arthropathy. 2-3 mm anterolisthesis of C3 on C4 is also present which likely reflects a degenerative changes. Follow-up as clinically appropriate. This may include an outpatient MRI. FINDINGS: CHEST: Tracheobronchial tree: Patent where visualized. No evidence of bronchiectasis. Pulmonary parenchyma: No consolidation or dominant measurable mass. Atelectatic changes are seen in the lung bases. There is scarring seen in the right lower lobe which is unchanged. There is unchanged elevation of the right hemidiaphragm. Visualized thyroid gland: Unremarkable. Mediastinum and Jennifer: No dominant adenopathy or fluid collection. The esophagus is unremarkable. There is a small hiatal hernia. Pleura: No effusion or pneumothorax. Heart: The heart is not dilated. Coronary artery calcification is present. No pericardial effusion. Pulmonary arteries: Due to the timing of the bolus, the pulmonary arteries are inadequately opacified for evaluation of peripheral pulmonary emboli. No large central pulmonary embolism is present. Aorta: Thoracic aorta non-dilated. No evidence of dissection. Atherosclerotic calcification is present. Lymph nodes: Within normal limits. Soft tissues: Unremarkable. Bones:There are marked degenerative changes seen at the right glenohumeral joint. No obvious displaced rib fractures are seen. No acute fracture or subluxation is identified. There is an intramedullary lupe seen in the proximal left femur. Three orthopedic screws are seen in the right femoral neck. Note is made of L5 spondylolysis and grade 1 spondylolisthesis of L5 on S1. Age- appropriate degenerative changes are seen throughout the thoracic and lumbar spine. Old healed right pelvic bone fractures. ABDOMEN: Liver: Normal density. No measurable mass. Portal, Superior Mesenteric, and Splenic Veins: Unremarkable. Gallbladder and Biliary Tract: Status post cholecystectomy. No significant biliary ductal dilatation. Pancreas: Normal density, no abnormal calcifications or inflammatory process. Stable 1.1 cm hypodensity in the body of the pancreas (series 4, image 81). This likely reflects a small cyst. Spleen: Normal. Adrenals: No masses seen. Kidneys: Normal size, contour and axis. No radiodense stones or obstructive uropathy. No masses seen. Abdominal Aorta: Abdominal portion non-dilated. Atherosclerotic calcification is present. No evidence of dissection. Bowel: There is diverticulosis seen in the colon without evidence of acute diverticulitis. No evidence of bowel wall thickening or obstruction. No evidence of appendicitis. Peritoneal Cavity: No ascites, collection or mesenteric inflammatory response. No free air. Lymph Nodes: Within normal limits. Soft Tissues: Unremarkable. PELVIS: Bladder: Symmetric distention, no gross wall thickening. Portions of the urinary bladder are not well seen due to artifact from the patient's hip surgeries. Reproductive Organs: Grossly unremarkable. Lymph Nodes: Within normal limits. IMPRESSION: 1. No acute abdominal or pelvic process. 2. Stable incidental findings in the abdomen and pelvis as described above. 3. No acute pulmonary process. Quality:SDOH Health Related Social Needs: No Data to Display PFSH All Active Problems (Updated 02/07/24 @ 10:28 by Temo Douglas DO) Skin rash (Acute) Contusion (Acute) Fall (Acute) Right ankle sprain (Acute) Advance directive indicates patient wish for [id number] resuscitation status (Acute) Elevated BP without diagnosis of hypertension (Acute) Memory loss (Acute) Migraine headache without aura (Acute) Generalized weakness (Acute) Spinal stenosis (Acute) Atrial flutter (Chronic) paroxysmal, Atrial fib/flutter, rate controlled, not on anticoagulation. Zio Patch ordered. Premature beats (Chronic) 10/29/10 H/O multiples pvc's Osteoporosis (Chronic) Irritable colon (Chronic) Celiac disease (Chronic 06/12/13) Medical History Abnormal mammography (03/27/13) Adrenal insufficiency Ataxia Chronic headache Closed head injury Cortical cataract of left eye Diverticulosis of colon without diverticulitis DVT (deep venous thrombosis) s/p hemorrhoid banding Epiretinal membrane (ERM) of left eye Epiretinal membrane (ERM) of right eye Fall GERD (gastroesophageal reflux disease) History of pelvic fracture Hypertension Hypokalemia Hyponatremia Inflammation of Sacroiliac Joint Lumbosacral radiculopathy due to degenerative joint disease of spine Nuclear sclerotic cataract of left eye Osteoarthritis Pancreatic lesion Paroxysmal atrial fibrillation with rapid ventricular response Pelvic fracture PMR (polymyalgia rheumatica) Polymyalgia rheumatica (08/14/14) Post concussive syndrome Pyloric ulcer associated with Helicobacter pylori (01/21/05) Right lumbar radiculopathy (07/05/15) SIADH (syndrome of inappropriate ADH production) Urine sodium 56. Urine osmolality 460 Will need f/u lab and continued fluid restriction. Cause at this point is idiopathic. SIRS (systemic inflammatory response syndrome) Subconjunctival hemorrhage of left eye Trochanteric bursitis of both hips Surgical History Closed right hip fracture (05/03/19) S/P ORIF with cannulated screw fixation on 05/04/2019 Colonoscopy - MAC Fracture of hip, left, closed (02/26/21) s/p left hip intramedullary nail DOS: 02/27/2021 Hemorrhoidal Banding (04/27/17) Status post cataract extraction and insertion of intraocular lens of left eye (05/02/18) Status post cataract extraction and insertion of intraocular lens of right eye (05/16/18) Status post cholecystectomy Family History Mother No problems noted. Father Neoplasm PANCREATIC Sister Neoplasm BREAST/THYROID Social History Smoking/Tobacco Use Status: Never Smoking risk assessment performed?: Yes Alcohol Intake: never Drug use: Never Substance use type: does not use Counseling given: No Counseling provided: none Caregiver/Support person: Yes Household members: caregiver Housing: snf Number of Children: 3 number of grandchildren: 5 Communication Needs: None Do you need help understanding health information?: Never current occupation: [employer] Pets and animals: No Sexually active: No Do you think of yourself as: straight/heterosexual Current gender identity: female What is your relationship status?: How often do you talk on the phone with friends or family?: three or more times per week How often do you get together with friends or relatives?: three or more times per week How often do you attend religious or muslim services?: decline to answer Do you belong to any clubs or organized social groups?: no Panel score (0-1 are the most socially isolated patients): 1 What type of physical activity do you participate in: none Frequency: does not exercise Jennifer/Roman Catholic: Congregation Special jennifer needs: No Seatbelt use: always Helmet use: No Drive intox or ride w/intox driver examiner: No Do you feel safe at home: Yes Do you feel safe in your relationship?: Yes
[2024-02-07] MEDS: ACETAMINOPHEN 1,000 MG/100 ML BAG 400 MG IVPB (07:49)
[2024-02-07 07:51] LABS: Abs Immature Grans 0.06 10^3/uL (0.0-0.06); Absolute Basophil Count 0.05 10^3/uL (0.0-0.2); Absolute Eosinophil Count 0.26 10^3/uL (0.0-0.7); Absolute Lymphocyte Count 2.49 10^3/uL (1.2-3.4); Absolute Monocyte Count 0.97 10^3/uL (0.1-0.8); Absolute Neutrophil Count 6.26 10^3/uL (1.2-6.7); Basophils % 0.5 %; Eosinophils % 2.6 %; HCT 37.1 % (36.0-46.0); HGB 11.9 g/dL (11.2-15.7); Immature Grans % 0.6 %; Lymphocytes % 24.7 %; MCH 28.5 pg (27.0-33.0); MCHC 32.1 % (32.0-36.0); MCV 89 fL (80-95); MPV 10.7 fL (8.0-11.0); Monocytes % 9.6 %; Platelet Count 230 10^3/uL (130-400); RBC 4.17 10^6/uL (3.93-5.22); RDW 13.2 % (11.7-14.6); RDW-SD 43.2 fL; WBC 10.09 10^3/uL (4.4-10.8)
[2024-02-07 07:59] LABS: pCO2 (Venous) 43 mmHg (41-51); pO2 (Venous) 41 mmHg
[2024-02-07 08:00] LABS: BE (Venous) 2 mmol/L (-2-3); HCO3 (Venous) 27 mmol/L (23-28); O2 Sat (Venous) 78 %
[2024-02-07 08:01] LABS: TCO2 (Venous) 25 mmol/L (24-29)
[2024-02-07 08:07] LABS: Creatine Kinase 49 U/L (26-192)
[2024-02-07 08:08] LABS: ALT 14 U/L (14-59); AST 20 U/L (15-37); Albumin 3.1 g/dL (3.4-5.0); Alkaline Phosphatase 78 U/L (46-116); Anion Gap 10.4 mmol/L (3-11); BUN 17 mg/dL (7-18); Bilirubin, Total 0.23 mg/dL (0.2-1.0); CO2 26.6 mmol/L (21.0-32.0); Calcium 8.7 mg/dL (8.5-10.1); Chloride 105 mmol/L (98-107); Estimated GFR 54.19 (mL/min/1.73m2); Glucose 86 mg/dL (74-106); Potassium 3.8 mmol/L (3.5-5.1); Sodium 142 mmol/L (136-145); Total Protein 7.1 g/dL (6.4-8.2)
[2024-02-07] MEDS: Omnipaque 350 MG/ML 100 ML BTL IJ (08:46)
[2024-02-07] MEDS: Normal Saline - Diluent 50 ML VIAL IJ (08:48)
[2024-02-07] MEDS: fentaNYL 100 MCG/2 ML VIAL IVP (08:56)
[2024-02-07] MEDS: Normal Saline Flush 10 ML SYR IVP (08:58)
[2024-02-07 09:52] VITALS: RESP 12; O2SAT 90
[2024-02-07 09:53] VITALS: BP 146/65; PULSE 76; RESP 16; O2SAT 94
[2024-02-07 11:32] VITALS: BP 136/92; PULSE 103; RESP 16; O2SAT 96
[2024-02-07] MEDS: Ibuprofen 400 MG TAB PO (12:30)
== END 2024-02-07 12:53 | disposition home or self-care (01) ==
PROVIDERS: Emergency Provider Student in an Organized Health Care Education/Training Program; PCP Family Medicine
DX: R21 Rash and other nonspecific skin eruption (principal); F03.90 Unspecified dementia, unspecified severity, without behavioral disturbance, psychotic disturbance, mood disturbance, and anxiety; M35.3 Polymyalgia rheumatica; I10 Essential (primary) hypertension; I48.91 Unspecified atrial fibrillation; Z79.82 Long term (current) use of aspirin; Z91.81 History of falling; Z86.718 Personal history of other venous thrombosis and embolism
CPT/HCPCS: 73552; 74177; 80053; 82550; 82805; 96365; 96375; 99285; 70450; 71260; 72125; 72170; 73610; 85025; J0131; J3010; J3490

== ENCOUNTER 2024-07-14 21:59 | Outpatient (REF) | payer MEDICARE, OTHER, MEDICAID, SELFPAY ==
[2024-07-14 14:54] LABS: BUN 19 mg/dL (7-18); CREATININE 0.9 mg/dL (0.55-1.02); Calcium 9.2 mg/dL (8.5-10.1); Chloride 104 mmol/L (98-107); Estimated GFR 61.49 (mL/min/1.73m2); Glucose 89 mg/dL (74-106); Potassium 3.9 mmol/L (3.5-5.1); Sodium 140 mmol/L (136-145)
== END 2024-07-14 22:00 | disposition home or self-care (01) ==
LOC: LBN 21:59
PROVIDERS: PCP Family Medicine; Visit Provider Nurse Practitioner Adult Health
DX: G30.9 Alzheimer's disease, unspecified (principal); E11.9 Type 2 diabetes mellitus without complications
CPT/HCPCS: 80048

== ENCOUNTER 2024-09-21 17:50 | Outpatient (REF) | payer MEDICARE, OTHER, MEDICAID, SELFPAY ==
[2024-09-21 12:45] LABS: Anion Gap 8.7 mmol/L (3-11); BUN 17 mg/dL (7-18); CO2 28.3 mmol/L (21.0-32.0); Calcium 8.6 mg/dL (8.5-10.1); Chloride 105 mmol/L (98-107); Estimated GFR 54.19 (mL/min/1.73m2); Glucose 104 mg/dL (74-106); Magnesium 2.0 mg/dL (1.8-2.4); Potassium 3.8 mmol/L (3.5-5.1); Sodium 142 mmol/L (136-145); Vitamin D 25 Total 27 ng/mL (30-100)
== END 2024-09-21 17:51 | disposition home or self-care (01) ==
LOC: LBN 17:50
PROVIDERS: PCP Family Medicine; Visit Provider Nurse Practitioner Adult Health
DX: E55.9 Vitamin D deficiency, unspecified (principal)
CPT/HCPCS: 80048; 82306; 83735

== ENCOUNTER → 2024-12-12 10:46 | Outpatient (BNVA) | payer MEDICARE, OTHER, MEDICAID, SELFPAY | PROVIDERS: PCP Family Medicine; Referring Provider Family Medicine; Visit Provider Podiatrist | DX: L60.3 Nail dystrophy (principal); B35.1 Tinea unguium; I73.89 Other specified peripheral vascular diseases; M79.674 Pain in right toe(s); M79.675 Pain in left toe(s); R09.89 Other specified symptoms and signs involving the circulatory and respiratory systems; R60.0 Localized edema; R20.8 Other disturbances of skin sensation; I83.93 Asymptomatic varicose veins of bilateral lower extremities; R23.4 Changes in skin texture; R23.8 Other skin changes; L60.2 Onychogryphosis; L60.8 Other nail disorders | CPT/HCPCS: 11721 ==